=== PATIENT | male | born 1965 | race Caucasian/White ===

== ENCOUNTER 2017-07-25 03:52 | Emergency (ER) | payer OTHER, SELFPAY ==
[2017-07-25 03:54] VITALS: BP 148/98; PULSE 75; RESP 17; TEMP 36.5; O2SAT 99; BMI 28.6
[2017-07-25] MEDS: Diphth,Pertuss(Acell),Tet Vac 0.5 ML Vial IM (04:13)
--- NOTE | 2017-07-25 04:16 | ED.DCSUM_ITS ---
- ER Visit Summary Date of Service: 07/25/17 Chief Complaint: Left long finger injury History of Present Illness: The patient is a 51 M with unsure of last tetanus presents to the emergency department with injury to his left long finger. Patient was at work. 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 He was trying to scrape out the shavings and there was a long one that would not scrape out. He tried to grab it with his hand. It cut through his glove and incised tip of his finger. He denies any other injury. The patient is otherwise healthy. He takes no daily medications. He states he could does not get it to stop bleeding so he presented here. Physical Examination: Exam is relatively unremarkable. The patient does have a 2 cm horizontally oriented laceration across the distal pad of the distal phalanges of the left third finger. It does not involve the nail bed. His 2 point discrimination is preserved. Flexor superficialis and profundus are intact. Cap refill is less than 2 seconds. Rest of exam unremarkable. Test Results: [] Emergency Department Course and Treatment: The patient had his tetanus updated. The wound was anesthetized. It was irrigated copiously. There was no foreign material visualized. The wound was cleansed with Shur-Clens. It was closed with 6 simple interrupted suture. There is no evidence of tendinous involvement. The patient was placed in a bacitracin dressing. He will be allowed to return to work and keep the wound covered. He will follow up with [facility] for suture removal. Treatment Plan: [] Disposition: Discharge Impression: 1. 2 cm left third finger laceration with repair This note was generated with [employer] dictation software. It may contain incorrect words, spelling, and punctuation that were not noted in review of the chart prior to signing ED Disposition - Plan for ED Patient: Chief Complaint: Laceration Instructions: ED Laceration Hand Referrals: [facility] [GROUP OF PHYSICIANS] - 7 Days for suture removal Lucian Navarro MD [STAFF PHYSICIAN] - Shae Shabazz DO [STAFF PHYSICIAN] -
[2017-07-25 04:47] VITALS: RESP 18
== END 2017-07-25 04:47 | disposition home or self-care (01) ==
LOC: ED 04:35
PROVIDERS: Emergency Provider Emergency Medicine
DX: S61.213A Laceration without foreign body of left middle finger without damage to nail, initial encounter (principal); W31.89XA Contact with other specified machinery, initial encounter; Y93.89 Activity, other specified; Y92.9 Unspecified place or not applicable; Y99.0 Civilian activity done for income or pay
CPT/HCPCS: 12001; 90471; 90715; 99283

== ENCOUNTER → 2019-04-25 07:59 | Outpatient (CLI) | payer BC, SELFPAY ==
[2019-04-25 08:04] LABS: Bacteria 0 SEEN /hpf (None Seen); Mucous, Urine 0 SEEN /hpf (<or=2+); Red Blood Cells-Urine 0 SEEN /hpf (0-5); Squamous Epithelial Cells - UA 0 SEEN /hpf (0-5); White Blood Cells 0 SEEN /hpf (0-5)
[2019-04-25 09:58] LABS: Absolute Lymphocyte Count 3.59 X10^3/uL (0.83-4.51); Absolute Neutrophil Count 4.5 X10^3/uL (2.0-7.7); Basophil# 0.09 X10^3/uL; Eosinophil# 0.33 X10^3/uL; Eosinophils% 3.6 % (0-5); Hematocrit 45.5 % (40-54); Hemoglobin 14.9 g/dL (13.0-16.5); Lymphocyte # 3.59 X10^3/ul (4.0); Lymphocyte % 38.7 % (19-41); Mean Corp Hgb Conc 32.7 g/dL (32-36); Mean Corpuscular Hgb 30.6 pg (27.0-32.0); Mean Corpuscular Volume 93.4 fL (80-94); Monocyte# 0.79 X10^3/uL; Monocyte% 8.5 % (0-10); NRBC Flagged by Analyzer 0 % (0-5); Neutrophil # 4.45 X10^3/uL (2.7-7.7); Platelet Count 302 K/mm3 (150-450); RBC Distribution Width CV 12.8 % (11.6-14.6); RBC Distribution Width SD 43.8 fl (35.1-43.9); Red Blood Count 4.87 M/mm3 (4.6-6.2); White Blood Count 9.3 K/mm3 (4.4-11.0)
[2019-04-25 09:59] LABS: Color, Urine Yellow (Yellow); Glucose, Dipstick Normal (Normal); Ketone-Dipstick Negative (Negative); Leukocyte Esterase-Dipstick Negative /ul (Negative); Nitrite-Dipstick Negative (Negative); Occult Blood-Urine Negative /ul (Negative); Protein-Dipstick Negative (Negative); Urine Bilirubin Dipstick Negative (Negative); Urine Clarity Clear (Clear); Urine Urobilinogen Normal (Normal); Urine pH 6.5 (5.0 - 8.0)
[2019-04-25 10:36] LABS: ALB/GLOB Ratio 1.4 RATIO (0.9-2.4); AST(SGOT) 14 U/L (15-37); Alanine Aminotransfer ALT/SGPT 28 U/L (16-61); Albumin, Serum 4.2 g/dL (3.2-5.0); Alkaline Phosphatase 73 U/L (45-117); Anion Gap 9 (5-15); BUN 16 mg/dL (7-18); BUN/Creat Ratio 17.1 RATIO (10-20); Calcium,Total 8.7 mg/dL (8.5-10.1); Chloride 102 mmol/L (98-107); Cholesterol 140 mg/dL (200); Creatinine, Serum 0.94 mg/dL (0.70-1.30); EST Glomerular Filtration Rate 89 mL/min (>60); Est Glom Filt Rate - Afr Amer 108 mL/min (>60); Globulin 3.1 g/dL (2.2-4.2); Glucose 84 mg/dL (74-106); High Density Lipoprotein 53 mg/dL; Potassium 3.9 mmol/L (3.5-5.1); Protein, Total 7.3 g/dL (6.4-8.2); Sodium Level 135 mmol/L (136-145); Thyroid Stim Hormone (TSH) 2.93 uIU/mL (0.358-3.74); Triglycerides 49 mg/dL; Very Low Density Lipoprotein 10 mg/dL (5-40)
== END ==
PROVIDERS: Referring Provider Family Medicine; Visit Provider Family Medicine
DX: Z00.00 Encounter for general adult medical examination without abnormal findings (principal); F17.200 Nicotine dependence, unspecified, uncomplicated
CPT/HCPCS: 36415; 80053; 80061; 81001; 84443; 85025

== ENCOUNTER 2019-05-27 05:30 | Day surgery (SDC) | payer BC, SELFPAY ==
[2019-05-27] VITALS (9 sets, daily range): BP systolic 95–133; BP diastolic 68–94; PULSE 52–66; RESP 16–18; TEMP 36.2–36.4; O2SAT 97–100
[2019-05-27] MEDS: Lactated Ringers 1,000 ML 100 ML IV (06:11)
--- NOTE | 2019-05-27 06:11 | HP.PCM_ITS ---
Problem List (1) Screening for intestinal cancer Status: Acute History of Present Illness Date of Admission: 05/27/19 The patient is a 53 year old M who presents today for screening colonoscopy. A previous colonoscopy was very remote. He denies bright red blood per rectum or melena. No abdominal pain. No unexpected weight loss. He does not take any routine medications and is not allergic to any medications. He does use tobacco. Past Medical History Allergies No Known Allergies Allergy (Verified 05/23/19 10:15) Home Medications: Ambulatory Orders Medication Instructions Recorded Multivitamin [Multiple Vitamins] 1 ea PO DAILY 05/23/19 Smoking Status: Current every day smoker Tobacco Use: Cigarettes Review of Systems Constitutional: Denies: Anorexia HEENT: Denies: Difficulty Swallowing Cardiovascular: Denies: Chest Pain Gastrointestinal: Denies: Abdominal Pain, Nausea, Melena Endocrine: Denies: Change in Body Habitus VTE Information - Inpt Only VTE Present on Admission: No Patient Problems: Active and Suspected Problems Screening for intestinal cancer (Acute) - Physical Exam Vitals/I&O's: Vital Signs Temp Pulse Resp BP Pulse Ox 97.3 F L 66 16 103/90 H 99 05/27/19 05:55 05/27/19 05:55 05/27/19 05:55 05/27/19 05:55 05/27/19 05:55 Oxygen Delivery Method Room Air General: Alert, Oriented x3, Cooperative, No apparent distress Oral: Moist Mucosa Lungs: Clear to auscultation, Normal air movement Cardiovascular: Regular rate, Regular Rhythm Abdomen: Bowel Sounds Present, Soft, Non Tender, Non-Distended Extremities: No Calf Tenderness Current Medications Lactated Ringer's () 1,000 mls @ 100 mls/hr IV .Q10H [facility] Assessment/Plan All Active Problems Screening for intestinal cancer (Acute) I propose for the patient is screening colonoscopy with possible biopsy or polypectomy is indicated. He presents via our open access program today. He has had an opportunity to ask and have questions answered. We will proceed as noted. Benjamín Judge M.D., F.A.C.S.
--- NOTE | 2019-05-27 06:30 | COLBX_PTH ---
PATIENT: RICHARD COUCH LOC: EN U#:[id number] AGE/SX: 53/M ROOM: RE05/27/[address]: Dr. Benjamín Judge MD : 1965 BED: DIS: 05/27/2019 SPEC #: [id number] RECD: 05/27/19 12:16 STATUS: KEL WILLIAM #: [id number] BRETT: 05/27/19 06:[address]: Benjamín Judge DEPT: SURGICAL PATHOLOGY RECD BY: Silviano Harris ENTERED: 05/27/19 12:16 SP TYPE: COLON BX MICHELET DR: Dr. Toño Urbina MD Tissues: A - Ascending colon B - Sigmoid colon biopsy Procedures: Surgery Specimen Level IV HEADER OPERATION: Colonoscopy - open access (MOD) PRE-OP DIAGNOSIS: Screening TISSUE SUBMITTED: A - Proximal ascending polyp biopsy, B - Proximal sigmoid polyp biopsy MICROSCOPIC DIAGNOSIS A. Proximal ascending colon polyp, biopsy: Fragments of tubular adenoma. B. Proximal sigmoid polyp, biopsy: Fragments of hyperplastic polyp. SJ:poppy 05/29/19 MICROSCOPIC DESCRIPTION Slides are reviewed. GROSS DESCRIPTION A - Received in fixative is one container labeled with the patient's name and designated proximal ascending colon polyp. The specimen consists of multiple irregular fragments of light jones soft tissue that in aggregate measure 1 x 0.3 x 0.1 cm. The specimen is totally submitted in one cassette. B - Received in fixative is one container labeled with the patient's name and designated proximal sigmoid polyp. The specimen consists of multiple irregular fragments of light jones soft tissue that in aggregate measure 1 x 0.7 x 0.1 cm. The specimen is totally submitted in one cassette. / AM:poppy 05/27/19 TC:1 CPT: 82710 x2
--- NOTE | 2019-05-27 06:54 | OP.COLON_ITS ---
Patient Name: Rayshawn Head Procedure Date: 05/27/2019 6:02 AM Date of : 1965 Age: 53 Procedure: Colonoscopy Indications: Screening for colorectal malignant neoplasm Providers: Benjamín Judge MD Referring MD: Toño Urbina Medicines: Midazolam 4 mg IV, Meperidine 100 mg IV Patient Profile: Last Colonoscopy: more than 10 years ago. Complications: No immediate complications. Procedure: Pre-Anesthesia Assessment: - Prior to the procedure, a History and Physical was performed, and patient medications and allergies were reviewed. The patient's tolerance of previous anesthesia was also reviewed. The risks and benefits of the procedure and the sedation options and risks were discussed with the patient. All questions were answered, and informed consent was obtained. Prior Anticoagulants: The patient has taken no previous anticoagulant or antiplatelet agents. ASA Grade Assessment: II - A patient with mild systemic disease. After reviewing the risks and benefits, the patient was deemed in satisfactory condition to undergo the procedure. After I obtained informed consent, the scope was passed under direct vision. Throughout the procedure, the patient's blood pressure, pulse, and oxygen saturations were monitored continuously. The Colonoscope was introduced through the anus and advanced to the cecum, identified by appendiceal orifice and ileocecal valve. The colonoscopy was performed without difficulty. The patient tolerated the procedure well. The quality of the bowel preparation was good. The ileocecal valve and the appendiceal orifice were photographed. Moderate Sedation: Moderate (conscious) sedation was personally administered by the endoscopist. The following parameters were monitored: oxygen saturation, heart rate, blood pressure, and response to care. Total physician intraservice time was 15 minutes. Scope In: 6:30:55 AM Scope Withdrawal Time 0 hours 13 minutes 51 seconds Scope Out: 6:49:13 AM Total Procedure Duration Time 0 hours 18 minutes 18 seconds Findings: The perianal and digital rectal examinations were normal. A 6 mm polyp was found in the proximal ascending colon. The polyp was sessile. The polyp was removed with a cold biopsy forceps. Resection and retrieval were complete. A 5 mm polyp was found in the proximal sigmoid colon. The polyp was sessile. The polyp was removed with a cold biopsy forceps. Resection and retrieval were complete. A few diverticula were found in the sigmoid colon. Impression: - One 6 mm polyp in the proximal ascending colon, removed with a cold biopsy forceps. Resected and retrieved. - One 5 mm polyp in the proximal sigmoid colon, removed with a cold biopsy forceps. Resected and retrieved. - Diverticulosis in the sigmoid colon. Recommendation: - Discharge patient to home. - Resume previous diet. - Continue present medications. - Repeat colonoscopy in 5 years for surveillance based on pathology results. - Telephone my office for pathology results in 1 week. Procedure Code(s): --- Professional --- 96475, Colonoscopy, flexible; with biopsy, single or multiple 23146, 59, Moderate sedation services provided by the same physician or other qualified health career professional performing the diagnostic or therapeutic service that the sedation supports, requiring the presence of an independent trained observer to assist in the monitoring of the patient's level of consciousness and physiological status; initial 15 minutes of intraservice time, patient age 5 years or older Diagnosis Code(s): --- Professional --- Z12.11, Encounter for screening for malignant neoplasm of colon D12.2, Benign neoplasm of ascending colon D12.5, Benign neoplasm of sigmoid colon K57.30, Diverticulosis of large intestine without perforation or abscess without bleeding CPT copyright 2017 [employer]. All rights reserved. The codes documented in this report are preliminary and upon quotation clerk review may be revised to meet current compliance requirements. Benjamín Judge MD 05/27/2019 6:53:26 AM This report has been signed electronically. Number of Addenda: 0 Note Initiated On: 05/27/2019 6:02 AM
== END 2019-05-27 07:32 | disposition home or self-care (01) ==
LOC: EN 05:31 → AC 05:32
PROVIDERS: Family Provider Family Medicine; PCP Family Medicine; Referring Provider Family Medicine; Visit Provider Surgery
PROC: 0DJD8ZZ Inspection of Lower Intestinal Tract, Via Natural or Artificial Opening Endoscopic (ICD-10-PCS; CPT 45378; principal; 2019-05-27 06:25)
DX: Z12.11 Encounter for screening for malignant neoplasm of colon (principal); D12.2 Benign neoplasm of ascending colon; D12.5 Benign neoplasm of sigmoid colon; K57.30 Diverticulosis of large intestine without perforation or abscess without bleeding; F17.210 Nicotine dependence, cigarettes, uncomplicated
CPT/HCPCS: 45380; 88305; 99152; 99153; J7120

== ENCOUNTER 2020-12-28 02:53 | Emergency (ER) | payer OTHER, BC, SELFPAY ==
[2020-12-28 02:54] VITALS: BP 131/87; PULSE 74; RESP 16; TEMP 36.7; O2SAT 98; BMI 30.2
--- NOTE | 2020-12-28 03:11 | EX.ED.GENINJ ---
HPI History of Present Illness Chief Complaint: Laceration Informant: patient Narrative Narrative: Patient is a 55-year-old male who presents to the emergency department for laceration to right thumb. He states he was at work whenever a piece of equipment started to fall. He tried to catch it and it sliced his finger. No loss of range of motion or sensation. He is left-handed at baseline. Bleeding has been controlled prior to arrival. He is on a blood thinning medications. Denies any other injury. He states his last tetanus shot was in 2018. [facility] Home Medications multivitamin 1 ea PO DAILY 05/23/19 [History Last Taken Unknown] naproxen [Naprosyn] 500 mg PO DAILY 12/28/20 [History Last Taken Unknown] Allergy/AdvReac Type Severity Reaction Status Date / Time No Known Allergies Allergy Verified 12/28/20 02:56 Social History Smoking Status: Current every day smoker tobacco type: cigarettes ROS ROS ED Constitutional Constitutional ED: Denies chills or fever(s) ENT ENT ED: Denies rhinorrhea Cardiovascular Cardiovascular: Denies chest pain Respiratory/Chest Respiratory/Chest: Denies cough or dyspnea Gastrointestinal Gastrointestinal: Denies abdominal pain, nausea or vomiting Musculoskeletal Musculoskeletal: Denies back pain or neck pain Integumentary Reports other Details: Right thumb laceration Neurologic Neurologic: Denies weakness EXAM Physical Exam Const Vital Signs: 12/28/20 02:54 Temperature 98.1 F Temperature Source Oral Pulse Rate 74 Respiratory Rate 16 Blood Pressure 131/87 H Blood Pressure Mean 101 Pulse Ox 98 Oxygen Delivery Method Room Air Positive well nourished and well developed General Appearance ED: well developed and NAD HEENT Reports normocephalic and head/scalp atraumatic Eyes PERRL and EOMs intact bilaterally Neck supple Resp normal respiratory effort Cardio regular rate Extremity Extremity Narrative: Brisk capillary refill. Full range of motion of the fingers and hand. Neurovascular intact. Neuro no sensory deficits noted Sensorium / Orientation: alert Motor Exam: strength 5/5 throughout Psych mental status grossly normal Skin Skin Narrative: Right thumb has a laceration with skin avulsion of the pad of the right thumb. PROC Procedures Lacerations thumb: Length: 1.18 in Shape: Circular (Attached by flap) Prep: Sterile Conditions and Shure-Clens Laceration repair: Irrigated, Lidocaine and Skin sutures Irrigated (ml): 200 Number of Sutures/Ag: 4 Suture Information: Ethilon, Simple and 5-0 MDM MDM MDM Narrative Medical decision making narrative: Patient presents to the emergency department for thumb laceration. He is up-to-date on vaccinations. Vital signs within normal limits. Wound was anesthetized and extensively irrigated and cleaned. No foreign body appreciated. It is unlikely that the skin flap will end up healing well but it is sutured back down to give the gaping hole protection. He is to monitor for evidence of infection. He is to have the sutures removed in 7 to 10 days. He understands and is agreeable to plan. All questions were answered. Discharge Plan Triage Chief Complaint: Laceration ED Provider: Brandan Archer Dx/Rx/DC Orders Clinical Impression: Laceration of thumb Instructions: ED Laceration, Hand: All Closures Prescriptions: No Action multivitamin 1 EACH tablet 1 ea PO DAILY RF: 0 naproxen [Naprosyn] 500 mg Tablet 500 mg PO DAILY RF: 0 Stand Alone Forms: Work Status Form Primary Care Provider: Toño Urbina Referrals: Toño Urbina MD [Primary Care Provider] - 7 Days for suture removal Disposition Disposition: Home, Self Care Discharge Date/Time: 12/28/20 04:45
== END 2020-12-28 04:45 | disposition home or self-care (01) ==
PROVIDERS: Emergency Provider Emergency Medicine; PCP Family Medicine
DX: S61.011A Laceration without foreign body of right thumb without damage to nail, initial encounter (principal); F17.210 Nicotine dependence, cigarettes, uncomplicated; X58.XXXA Exposure to other specified factors, initial encounter
CPT/HCPCS: 12001; 99284

== ENCOUNTER 2022-01-17 02:23 | Emergency (ER) | payer BC, SELFPAY ==
[2022-01-17 02:26] VITALS: BP 139/91; PULSE 77; RESP 34; TEMP 36.7; O2SAT 98; BMI 26.5
--- NOTE | 2022-01-17 02:44 | ED.VIS.GI ---
HPI HPI - GI History of Present Illness Chief Complaint: Abd Pain Abdominal Pain/Flank Pain Onset: Today Context: Sudden Onset Timing: Continuous and Waxes and wanes Quality: Sharp Location: RUQ Worsened by: Nothing Relieved by: Nothing Nausea/Vomiting/Emesis GI Symptom: Negative for Nausea or Vomiting Diarrhea/Melena/Hematochezia GI Symptom: Negative for Diarrhea, Melena or Hematochezia Associated Symptoms Associated Symptoms: Negative for Dysuria, Frequency or Hematuria Narrative Narrative: Patient presents with right upper quadrant abdominal pain that began tonight. Patient states it began rather suddenly. Patient states it is constant but waxes and wanes. Patient states the pain is sharp. Patient states the pain is over the right upper quadrant right lower chest. Patient states he does have worsening pain with breathing. Patient states nothing makes the pain any better. Patient denies any nausea, vomiting, or diarrhea. Patient denies any melena or hematochezia. Patient denies any dysuria, hematuria, or frequency. Patient states the pain does radiate into his back and into his shoulder. PFSH PFSH Home Medications naproxen 500 mg tablet (Naprosyn) 500 mg PO DAILY 12/28/20 [History Last Taken Unknown] hydrocodone-acetaminophen 5-325mg 5mg-325mg 1 tab PO Q6H PRN PRN Pain 3 days #10 TABLETS 01/17/22 [Rx Last Taken Unknown] Allergy/AdvReac Type Severity Reaction Status Date / Time No Known Allergies Allergy Verified 01/17/22 02:31 Social History Smoking Status: Current every day smoker tobacco type: cigarettes ROS ROS ED Constitutional Constitutional ED: Denies chills or fever(s) Eyes Eyes: Denies blurry vision or change in vision ENT ENT ED: Denies rhinorrhea or sore throat Cardiovascular Cardiovascular: Reports chest pain; Denies palpitations Respiratory/Chest Respiratory/Chest: Reports dyspnea; Denies cough Gastrointestinal Gastrointestinal: Denies nausea or vomiting Genitourinary Genitourinary ED: Denies dysuria or hematuria Musculoskeletal Musculoskeletal: Reports back pain; Denies neck pain Integumentary Denies abscess or rash Neurologic Neurologic: Denies headache(s) or weakness Allergic/Immunologic Allergic/Immunologic ED: Denies mouth swelling or urticaria EXAM Physical Exam Const Vital Signs: 01/17/22 02:26 Temperature 98.1 F Temperature Source Temporal Pulse Rate 77 Respiratory Rate 34 H Blood Pressure 139/91 H Blood Pressure Mean 107 Pulse Ox 98 Oxygen Delivery Method Room Air Positive well nourished and well developed General Appearance ED: well developed HEENT Reports moist mucous membranes Neck supple and no JVD Resp normal respiratory effort and clear to auscultation bilaterally Cardio regular rate, regular rhythm and no murmurs GI normal to inspection, nondistended, normoactive bowel sounds Palpation: soft and tender RUQ; Negative for guarding or rebound tenderness present Extremity normal to inspection General Extremety ED: Negative for edema or tenderness General Extremity: Negative for edema Neuro oriented x3, CN's II-XII intact bilaterally and no sensory deficits noted Sensorium / Orientation: alert Motor Exam: strength 5/5 throughout Psych mental status grossly normal Skin no rashes or lesions noted MDM MDM MDM Narrative Medical decision making narrative: Patient was given IV fluids, morphine, and Zofran. EKG was obtained. On my interpretation, it showed a normal sinus rhythm with a rate of 75. OH interval, QRS interval, and QTc intervals were all normal. [place] was normal. There are no acute ST or T wave changes. CBC shows a mild leukocytosis of 13.6. Comprehensive metabolic profile was within normal limits. D-dimer was elevated at 0.74. Urinalysis does not show any evidence of urinary tract infection or hematuria. Because of the elevated D-dimer, CTA of the chest, abdomen, and pelvis was obtained. There is no evidence of pulmonary embolism. There is a small right pleural effusion and atelectasis in the posterior segment of the right lower lobe. There are bilateral inguinal hernias but there is no evidence of obstruction. There is no evidence of cholecystitis or cholelithiasis. This was interpreted by the radiologist and reviewed by myself. Patient was advised of his findings. Patient was instructed to take 10-15 deep breaths every hour to prevent pneumonia. Patient was instructed to take Tylenol or ibuprofen as needed for pain. Patient was instructed to follow-up with his primary care physician in 5 to 7 days. Patient understood and was agreeable with the plan. All questions were answered. Lab Data Attestation: I reviewed the patient's lab results. Labs: Laboratory Results - last 24 hr 01/17/22 01/17/22 01/17/22 02:15 02:15 02:15 WBC 13.6 H RBC 4.70 Hgb 14.8 Hct 44.1 MCV 93.8 MCH 31.5 MCHC 33.6 RDW Std Deviation 46.1 H RDW Coeff of Andrea 13.3 Plt Count 319 MPV 9.9 Immature Gran % (Auto) 0.400 Neut % (Auto) 62.6 Lymph % (Auto) 24.9 [place] % (Auto) 10.0 Eos % (Auto) 1.6 Baso % (Auto) 0.5 Absolute Neuts (auto) 8.5 H Absolute Lymphs (auto) 3.37 Nucleated RBC % 0 D-Dimer Quant (PE/DVT) 0.74 H* Sodium 138 Potassium 4.0 Chloride 107 Carbon Dioxide 25.0 Anion Gap 6 BUN 18 Creatinine 0.90 Estim Creat Clear Calc 88.67 Est GFR (MDRD) Af Amer 113 Est GFR (MDRD) Non-Af 93 BUN/Creatinine Ratio 20.1 H Glucose 100 Calcium 9.1 Total Bilirubin 0.60 AST 21 ALT 33 Alkaline Phosphatase 98 Troponin I High Sens 29 Total Protein 8.0 Albumin 4.3 Globulin 3.7 Albumin/Globulin Ratio 1.2 Urine Color Urine Clarity Urine pH Ur Specific [place] Urine Protein Urine Glucose (UA) Urine Ketones Urine Occult Blood Urine Nitrite Urine Bilirubin Urine Urobilinogen Ur Leukocyte Esterase Urine RBC Urine WBC Ur Squamous Epith Cells Urine Bacteria Urine Mucus 01/17/22 03:43 WBC RBC Hgb Hct MCV MCH MCHC RDW Std Deviation RDW Coeff of Andrea Plt Count MPV Immature Gran % (Auto) Neut % (Auto) Lymph % (Auto) [place] % (Auto) Eos % (Auto) Baso % (Auto) Absolute Neuts (auto) Absolute Lymphs (auto) Nucleated RBC % D-Dimer Quant (PE/DVT) Sodium Potassium Chloride Carbon Dioxide Anion Gap BUN Creatinine Estim Creat Clear Calc Est GFR (MDRD) Af Amer Est GFR (MDRD) Non-Af BUN/Creatinine Ratio Glucose Calcium Total Bilirubin AST ALT Alkaline Phosphatase Troponin I High Sens Total Protein Albumin Globulin Albumin/Globulin Ratio Urine Color Yellow Urine Clarity Clear Urine pH 6.0 Ur Specific [place] 1.025 Urine Protein Negative Urine Glucose (UA) Normal Urine Ketones Negative Urine Occult Blood 10 H Urine Nitrite Negative Urine Bilirubin Negative Urine Urobilinogen Normal Ur Leukocyte Esterase Negative Urine RBC 0 SEEN Urine WBC 0 SEEN Ur Squamous Epith Cells 0 SEEN Urine Bacteria 0 SEEN Urine Mucus 0 SEEN Radiography Diagnostic Testing: Clinical Impression(s) from Imaging Studies Chest/Abdomen/Pelvis CTA 01/17/22 03:37 IMPRESSION: 1. No evidence for pulmonary embolism, aortic aneurysm, or aortic dissection. 2. No evidence for aneurysm, dissection, or stenosis of the abdominal aorta or large abdominal or pelvic arteries. 3. Small right pleural effusion with overlying atelectasis and/or infiltration in the posterior right lower lobe. 4. Single mildly enlarged pretracheal mediastinal lymph node. 5. Bilateral inguinal hernias containing bowel. No associated bowel obstruction or strangulation. Electronically Signed: Lexa Wheeler MD at 4:23 EDT Reading Location ID and State: [facility] / [place] , Service support , EKG Initial EKG: Attestation: I personally reviewed and interpreted this EKG as follows: Interpretation: Sinus Rhythm (75) and No Acute Injury Pattern Prior EKG tracings: available for review Prior: Unchanged (01/19/2015) Discharge Plan Triage Chief Complaint: Abd Pain Other Complaint: Chest Pain ED Provider: Rayshawn Agarwal Dx/Rx/DC Orders Clinical Impression: Abdominal pain, acute, right upper quadrant, Atelectasis of right lung Instructions: ED Abdominal Pain Unkn Cause Male... Prescriptions: New hydrocodone-acetaminophen [hydrocodone-acetaminophen] 1 TABLET tablet 1 tab PO Q6H PRN PRN (Reason: Pain) 3 Days Qty: 10 0RF No Action naproxen [Naprosyn] 500 mg Tablet 500 mg PO DAILY Primary Care Provider: Toño Urbina Referrals: Toño Urbina MD [Primary Care Provider] - 3-5 Days Disposition Disposition: Home, Self Care
--- NOTE | 2022-01-17 02:48 | EKG12_ITS ---
Test Reason : DYSRHYTHMIA Blood Pressure : / mmHG Vent. Rate : 075 BPM Atrial Rate : 075 BPM P-R Int : 162 ms QRS Dur : 092 ms QT Int : 364 ms P-R-T Axes : 062 065 050 degrees QTc Int : 406 ms Normal sinus rhythm Normal ECG Confirmed by CEDRICK PULIDO, ARMANDO ([id number]), production editor SALVADOR BARAJAS ([id number]) on 01/18/2022 11:22:27 AM Referred By: TOSHIA Confirmed By:ARMANDO PHILIP MD
[2022-01-17] MEDS: 0.9% Normal Saline 1,000 ML 1000 ML IV (03:02)
[2022-01-17] MEDS: Ondansetron 4 MG/2 ML Vial IV (03:03)
[2022-01-17] MEDS: Morphine 4 MG/ML Syringe IV (03:04)
[2022-01-17 03:14] LABS: Absolute Lymphocyte Count 3.37 X10^3/uL (0.83-4.51); Absolute Neutrophil Count 8.5 X10^3/uL (2.0-7.7); Basophil# 0.07 X10^3/uL; Basophil% 0.5 % (0-1); Eosinophil# 0.22 X10^3/uL; Eosinophils% 1.6 % (0-5); Hematocrit 44.1 % (40-54); Hemoglobin 14.8 g/dL (13.0-16.5); Lymphocyte # 3.37 X10^3/ul (0.83-4.51); Lymphocyte % 24.9 % (19-41); Mean Corp Hgb Conc 33.6 g/dL (32-36); Mean Corpuscular Hgb 31.5 pg (27.0-32.0); Mean Corpuscular Volume 93.8 fL (80-94); Mean Platelet Vol. 9.9 fl (6.2-12.0); Monocyte# 1.35 X10^3/uL; NRBC Flagged by Analyzer 0 % (0-5); Neutrophil # 8.48 X10^3/uL (2.7-7.7); Neutrophil % 62.6 % (47-70); Platelet Count 319 K/mm3 (150-450); RBC Distribution Width CV 13.3 % (11.6-14.6); RBC Distribution Width SD 46.1 fl (35.1-43.9); White Blood Count 13.6 K/mm3 (4.4-11.0)
[2022-01-17 03:27] LABS: D-Dimer Quantitative (DVT/PE) 0.74 FEU/ug/m (0.27-0.49)
[2022-01-17 03:32] LABS: ALB/GLOB Ratio 1.2 RATIO (0.9-2.4); AST(SGOT) 21 U/L (15-37); Alanine Aminotransfer ALT/SGPT 33 U/L (16-61); Albumin, Serum 4.3 g/dL (3.2-5.0); Alkaline Phosphatase 98 U/L (45-117); Anion Gap 6 (5-15); BUN 18 mg/dL (7-18); BUN/Creat Ratio 20.1 RATIO (10-20); Calcium,Total 9.1 mg/dL (8.5-10.1); Chloride 107 mmol/L (98-107); EST Glomerular Filtration Rate 93 mL/min (>60); Est Glom Filt Rate - Afr Amer 113 mL/min (>60); Estimated Creatinine Clearance 88.67 ml/min; Globulin 3.7 g/dL (2.2-4.2); Glucose 100 mg/dL (74-106); Sodium Level 138 mmol/L (136-145); Troponin-I HS 29 pg/mL (3.0-78.0)
--- NOTE | 2022-01-17 03:37 | CT_ITS ---
EXAM: CT ANGIOGRAPHY CHEST, ABDOMEN AND PELVIS WITH INTRAVENOUS CONTRAST CLINICAL INDICATION: Elevated D-dimer Elevated D-dimer. Right lower chest pain. Shortness of breath. TECHNIQUE: Helically acquired angiography images were obtained of the chest, abdomen and pelvis with intravenous contrast. This CT exam was performed using one or more of the following dose reduction techniques: automated exposure control, adjustment of the mA and/or kV according to patient size, and/or use of iterative reconstruction technique. This report was created using [employer] report generation technology. MIP reconstructed images were created and reviewed. CONTRAST: IV 100mL [id number] RADIATION DOSE: CTDIvol = 17.03 mGy, DLP = 1544.82 mGy-cm COMPARISON: None. FINDINGS: VASCULATURE: AORTA: No acute findings. Normal in caliber. No dissection. PULMONARY ARTERIES: Unremarkable. Normal in caliber. No obvious central pulmonary embolism although this study was not performed with the pulmonary embolism protocol. GREAT VESSELS OF AORTIC ARCH: Unremarkable. Normal in caliber. No dissection. CELIAC TRUNK AND MESENTERIC ARTERIES: No acute findings. No occlusion or significant stenosis. No dissection. RENAL ARTERIES: No acute findings. No occlusion or significant stenosis. No dissection. ILIAC ARTERIES: No acute findings. No occlusion or significant stenosis. No dissection. CHEST: LUNGS AND PLEURAL SPACES: There are centrilobular and paraseptal emphysematous bullae in the lungs bilaterally. There is a small right pleural effusion with overlying right posterior basilar atelectasis. Active lower lobe infiltrate cannot be excluded. No mass. No pneumothorax. HEART: Unremarkable. Heart size is normal. No pericardial effusion. MEDIASTINUM: There is a single mildly enlarged pretracheal mediastinal lymph node with short axis diameter 1.2 cm. Esophagus is unremarkable. No hiatal hernia. THYROID: Unremarkable. No thyroid lesions. ABDOMEN: LIVER: There are a few small liver cysts. GALLBLADDER AND BILE DUCTS: Unremarkable. No calcified gallstones. No gallbladder distention or wall edema. No intra- or extrahepatic biliary ductal dilation. PANCREAS: Unremarkable. No focal cystic or solid mass. SPLEEN: Unremarkable. Normal size without focal cystic or solid mass. ADRENALS: Unremarkable. No nodules. KIDNEYS AND URETERS: Unremarkable. Normal renal size and position. No hydronephrosis. STOMACH AND BOWEL: There is a right inguinal hernia which contains a small bowel loop. There is no associated bowel obstruction or strangulation. There is a left inguinal hernia with marginal extension of a segment of sigmoid colon into the hernia. There is no associated bowel obstruction or strangulation. No focal inflammatory change. PELVIS: APPENDIX: A normal appendix is seen on series 3, axial images 53-70. BLADDER: Unremarkable. REPRODUCTIVE: Unremarkable as visualized. No mass. CHEST, ABDOMEN and PELVIS: INTRAPERITONEAL SPACE: Unremarkable. No ascites or other fluid collection. No free air. BONES/JOINTS: There are multilevel degenerative changes in the visualized spine. No suspicious lytic or blastic abnormality. SOFT TISSUES: See above. LYMPH NODES: See above. CT/CTA Chst, Abd, Pel W and/or WO IMPRESSION: 1. No evidence for pulmonary embolism, aortic aneurysm, or aortic dissection. 2. No evidence for aneurysm, dissection, or stenosis of the abdominal aorta or large abdominal or pelvic arteries. 3. Small right pleural effusion with overlying atelectasis and/or infiltration in the posterior right lower lobe. 4. Single mildly enlarged pretracheal mediastinal lymph node. 5. Bilateral inguinal hernias containing bowel. No associated bowel obstruction or strangulation. Electronically Signed: Lexa Wheeler MD at 4:23 EDT ,
[2022-01-17 03:48] LABS: Bacteria 0 SEEN /hpf (None Seen); Mucous, Urine 0 SEEN /hpf (<or=2+); Red Blood Cells-Urine 0 SEEN /hpf (0-5); Squamous Epithelial Cells - UA 0 SEEN /hpf (0-5); White Blood Cells 0 SEEN /hpf (0-5)
[2022-01-17 03:49] LABS: Color, Urine Yellow (Yellow); Glucose, Dipstick Normal (Normal); Ketone-Dipstick Negative (Negative); Leukocyte Esterase-Dipstick Negative /ul (Negative); Nitrite-Dipstick Negative (Negative); Occult Blood-Urine 10 /ul (Negative); Protein-Dipstick Negative (Negative); Specific Gravity, Urine 1.025 (1.002-1.030); Urine Bilirubin Dipstick Negative (Negative); Urine Clarity Clear (Clear); Urine Urobilinogen Normal (Normal)
[2022-01-17 05:03] VITALS: BP 130/77; PULSE 88; RESP 20; O2SAT 95
== END 2022-01-17 05:13 | disposition home or self-care (01) ==
PROVIDERS: Emergency Provider Emergency Medicine; PCP Family Medicine; Visit Provider Emergency Medicine
DX: R10.11 Right upper quadrant pain (principal); J98.11 Atelectasis; F17.210 Nicotine dependence, cigarettes, uncomplicated; Z79.899 Other long term (current) drug therapy
CPT/HCPCS: 71275; 74174; 80053; 81001; 84484; 85025; 85379; 93005; 96361; 96374; 96375; 99285; J7030; Q9967; J2405

== ENCOUNTER → 2022-02-03 | Outpatient (CLI) | payer BC, SELFPAY ==
[2022-02-03 07:04] LABS: Hematocrit 39.8 % (40-54); Hemoglobin 12.8 g/dL (13.0-16.5); Mean Corp Hgb Conc 32.2 g/dL (32-36); Mean Corpuscular Hgb 29.8 pg (27.0-32.0); Mean Corpuscular Volume 92.8 fL (80-94); Mean Platelet Vol. 9.2 fl (6.2-12.0); Platelet Count 576 K/mm3 (150-450); RBC Distribution Width CV 13.4 % (11.6-14.6); RBC Distribution Width SD 45.9 fl (35.1-43.9); Red Blood Count 4.29 M/mm3 (4.6-6.2); White Blood Count 11.6 K/mm3 (4.4-11.0)
[2022-02-03 07:34] LABS: PSA,Total - Annual Screen 1.33 ng/mL (0.00-4.00)
--- NOTE | 2022-02-03 10:12 | PFT ---
INTRODUCTION: The patient is a 56-year-old male that presents for pulmonary function studies secondary to a diagnosis of tobacco dependency. Respiratory therapy reported good patient effort. Bronchodilators were used during testing. INTERPRETATION: Forced expiration spirometry demonstrates the presence of a moderately severe large airways obstructive ventilatory defect. There was a significant response to aerosolized bronchodilators. Spirograms are of good quality but do not plateau indicating slow emptying of the lungs. Body plethysmography was performed and revealed a decreased TLC to 4.4 L, 73% of predicted, indicative of a mild restrictive ventilatory impairment. Diffusing capacity by single breath CO was noted to be 75% of predicted. IMPRESSION: Partially reversible moderately severe mixed ventilatory defect with preserved diffusing capacity.
[2022-02-04 11:08] LABS: HEPATITIS B SURFACE AG Negative (Negative); Hep C Antibodies <0.1 s/co ratio (0.0-0.9); Hepatitis A IgM Antibody Negative (Negative); Hepatitis B Core AB IgM Negative (Negative)
== END | disposition home or self-care (01) ==
PROVIDERS: PCP Nurse Practitioner Primary Care; Referring Provider Nurse Practitioner Primary Care; Visit Provider Nurse Practitioner Primary Care
DX: D72.829 Elevated white blood cell count, unspecified (principal); R93.2 Abnormal findings on diagnostic imaging of liver and biliary tract; R31.9 Hematuria, unspecified; Z72.0 Tobacco use
CPT/HCPCS: 36415; 80074; 84153; 85027; 94060; 94726; 94729; G0103

== ENCOUNTER → 2022-02-04 | Outpatient (CLI) | payer BC, SELFPAY ==
--- NOTE | 2022-02-04 07:42 | CT_ITS ---
INDICATION: ENLARGED LYMPH NODE EXAMINATION: CT CHEST WITHOUT CONTRAST - CT Chest High Resolution WO Contrast Injection TECHNIQUE: Helically acquired images were obtained of the chest. A radiation dose optimization technique was used for this scan. IV Contrast dosage and agent: None. COMPARISON: 01/17/2022 FINDINGS: LUNGS, PLEURA AND LARGE AIRWAYS: Mild emphysema. No high resolution CT evidence of interstitial lung disease or bronchiectasis. No change in the small right pleural effusion with right lower lobe atelectasis. No pneumothorax. THYROID: No thyroid lesions. HEART AND PERICARDIUM: Heart size is normal. No pericardial effusion. CORONARY ARTERIES: Coronary artery calcification is seen. VESSELS: Thoracic aorta is not dilated. MEDIASTINUM AND JOSE: No mediastinal or hilar adenopathy. No pretracheal lymphadenopathy. No change in 1.0 x 1.2 cm precarinal lymph node which maintains a normal fatty hilum which is likely normal. Esophagus is unremarkable. No hiatal hernia. UPPER ABDOMEN: No acute pathology. BONES: No suspicious lytic or blastic abnormality. CT/Chest without Contrast IMPRESSION: 1. No change in normal precarinal lymph node. 2. No change in small right pleural effusion with right lower lobe atelectasis. 3. No high resolution CT evidence of interstitial lung disease or bronchiectasis. Electronically Signed: Chilo Monreal MD at 12:15 EDT ,
== END | disposition home or self-care (01) ==
LOC: CT 07:35
PROVIDERS: PCP Nurse Practitioner Primary Care; Visit Provider Nurse Practitioner Primary Care
DX: R59.9 Enlarged lymph nodes, unspecified (principal)
CPT/HCPCS: 71250

== ENCOUNTER → 2022-02-08 | Outpatient (CLI) | payer BC, SELFPAY ==
--- NOTE | 2022-02-08 08:06 | MRI_ITS ---
STUDY: MRI ABDOMEN WITH AND WITHOUT CONTRAST REASON FOR EXAM: Male, 56 years old. Right upper abdominal pain. TECHNIQUE: Standardized fat and water weighted pulse sequences were obtained in all 3 orthogonal planes post contrast administration. IV Yes YES was administered for the contrast portion of the examination. COMPARISON: CT 02/04/2022 FINDINGS: Mild scarring in the right lung base. The visualized portions of the heart are within normal limits. There are several nonenhancing T2 bright cysts in the right and left hepatic lobes, none of which demonstrate contrast enhancement, compatible with simple cysts. No required imaging follow-up needed given high likelihood of benign nature. Normal gallbladder and extrahepatic biliary system. Normal spleen. Normal pancreas. Normal bilateral adrenal glands. Normal right kidney. Normal left kidney. Normal visualized stomach. Normal small intestine. Normal colon. The appendix is visualized and appears normal. Normal abdominal aorta. Normal inferior vena cava. Normal retroperitoneum. Normal abdominal wall. Multilevel degenerative disc disease/bulging without critical canal stenosis. MRI/MRI Abd WITH and W/O Contrast IMPRESSION: 1. Unremarkable unenhanced and enhanced MRI of the abdomen. 2. Simple hepatic cysts. No required imaging follow-up needed given high likelihood of benign nature. 3. Mild scarring in the right lung base. Electronically Signed: Kevin Braga MD ([place]) at 8:16 EDT Reading Location ID and State: [id number] , Service support ,
== END | disposition home or self-care (01) ==
PROVIDERS: PCP Nurse Practitioner Primary Care; Referring Provider Nurse Practitioner Primary Care; Visit Provider Nurse Practitioner Primary Care
DX: R93.2 Abnormal findings on diagnostic imaging of liver and biliary tract (principal)
CPT/HCPCS: 74183; A9575; A4216

== ENCOUNTER → 2022-05-03 | Outpatient (CLI) | payer BC, SELFPAY ==
[2022-05-03 07:05] LABS: Hemoglobin 14.8 g/dL (13.0-16.5); Mean Corp Hgb Conc 32.2 g/dL (32-36); Mean Corpuscular Hgb 29.2 pg (27.0-32.0); Mean Corpuscular Volume 90.9 fL (80-94); Platelet Count 301 K/mm3 (150-450); RBC Distribution Width CV 13.9 % (11.6-14.6); RBC Distribution Width SD 46.6 fl (35.1-43.9); Red Blood Count 5.06 M/mm3 (4.6-6.2); White Blood Count 9.9 K/mm3 (4.4-11.0)
[2022-05-03 07:40] LABS: ALB/GLOB Ratio 1.4 RATIO (0.9-2.4); AST(SGOT) 28 U/L (15-37); Alanine Aminotransfer ALT/SGPT 40 U/L (16-61); Albumin, Serum 4.6 g/dL (3.2-5.0); Alkaline Phosphatase 71 U/L (45-117); Anion Gap 4 (5-15); BUN 23 mg/dL (7-18); BUN/Creat Ratio 24.1 RATIO (10-20); Calcium,Total 9.5 mg/dL (8.5-10.1); Chloride 105 mmol/L (98-107); Creatinine, Serum 0.96 mg/dL (0.70-1.30); EST Glomerular Filtration Rate 86 mL/min (>60); Est Glom Filt Rate - Afr Amer 105 mL/min (>60); Globulin 3.3 g/dL (2.2-4.2); Glucose 73 mg/dL (74-106); Potassium 4.1 mmol/L (3.5-5.1); Protein, Total 7.9 g/dL (6.4-8.2); Sodium Level 136 mmol/L (136-145)
[2022-05-03 07:55] LABS: Hemoglobin A1c 5.2 % (3.8-5.6)
[2022-05-04 16:10] LABS: Lipoprotein A 80.6 nmol/L (<75.0)
== END | disposition home or self-care (01) ==
LOC: LAB 06:21
PROVIDERS: PCP Nurse Practitioner Primary Care; Referring Provider Nurse Practitioner Primary Care; Visit Provider Nurse Practitioner Primary Care
DX: Z00.00 Encounter for general adult medical examination without abnormal findings (principal)
CPT/HCPCS: 36415; 80053; 83036; 83695; 85027

== ENCOUNTER → 2022-05-09 | Outpatient (CLI) | payer BC, SELFPAY ==
[2022-05-09 11:43] LABS: Cholesterol 200 mg/dL (200); High Density Lipoprotein 73 mg/dL; Triglycerides 69 mg/dL; Very Low Density Lipoprotein 14 mg/dL (5-40)
[2022-05-09 12:10] LABS: Hepatitis C Antibody Non-Reactive (Nonreactive)
== END | disposition home or self-care (01) ==
LOC: LAB 10:24
PROVIDERS: PCP Nurse Practitioner Primary Care; Referring Provider Nurse Practitioner Primary Care; Visit Provider Nurse Practitioner Primary Care
DX: Z00.00 Encounter for general adult medical examination without abnormal findings (principal); Z11.59 Encounter for screening for other viral diseases
CPT/HCPCS: 36415; 80061; 86803

== ENCOUNTER → 2023-02-01 | Outpatient (CLI) | payer BC, SELFPAY ==
--- NOTE | 2023-02-01 06:37 | CT_ITS ---
STUDY: LOW DOSE CT LUNG CANCER SCREENING REASON FOR EXAM: Male, 57 years old. h/o Tobacco Dependency. One pack per day x4 years. Quit December 2021 COPD. RADIATION DOSAGE (If Supplied By Facility): CTDIvol = ( 4.02 ) mGy, DLP = ( 133.41 ) mGycm TECHNIQUE: No contrast was administered. Low dose technique was utilized (average mAS-38 and kVp 120). 1.25 mm axial source images with a slice interval of 1.25-mm were reconstructed in lung windows with coronal sagittal reformats COMPARISON: Chest CT January 04, 2022. CTA chest January 17, 2022 NODULES: No suspicious pulmonary nodules. Parenchyma: Lungs are hyperexpanded with mild to moderate diffuse centrilobular emphysematous change no consolidation, effusion, pneumothorax. Mild basilar subsegmental atelectasis. Endobronchial lesion: No endobronchial lesion. Mild basilar peribronchial thickening. Aorta: Aortic atherosclerosis without ectasia or intramural hematoma. CORONARY ARTERIES: Mild calcified atherosclerosis in the left anterior descending Heart: No cardiomegaly or pericardial effusion. Pulmonary artery: No main pulmonary arterial enlargement. Mediastinal nodes: No mediastinal or hilar adenopathy by size criteria. Other chest and abdominal findings: Unremarkable thyroid. Unremarkable esophagus. No acute finding within the upper abdomen. CT/Low Dose CT Lung Screening IMPRESSION: No suspicious pulmonary nodules. Moderate emphysematous change. Mild peribronchial thickening is seen which can be seen with mild superimposed acute inflammation. Lung-RADS category 1 - Continue annual screening with LDCT in 12 months. IMPORTANT NOTES FOR USE: ACR Lung-RADS Version 1.1 Assessment Categories Release Date: 2018 Category: Coded 0-4 bases on nodule(s) with highest degree of suspicion. Negative screen is defined as categories 1 and 2; a positive screen is defined as categories 3 and 4. Category 3 and 4A nodules that are unchanged on interval CT should be coded as category 2, and individuals returned to screening in 12 months. Category 4X: Category 3 or 4 nodules with additional imaging findings that increase the suspicion of lung cancer, such as spiculation, GGN that doubles in size in 1 year, enlarged lymph notes, etc. Category Modifiers: S (significant finding unrelated to lung cancer) Electronically Signed: Jason Calhoun MD at 7:48 EDT ,
== END | disposition home or self-care (01) ==
PROVIDERS: PCP Nurse Practitioner Primary Care; Referring Provider Internal Medicine Critical Care Medicine; Visit Provider Internal Medicine Critical Care Medicine
DX: Z12.2 Encounter for screening for malignant neoplasm of respiratory organs (principal); F17.211 Nicotine dependence, cigarettes, in remission
CPT/HCPCS: 71271

== ENCOUNTER → 2023-02-04 | Outpatient (CLI) | payer BC, SELFPAY ==
[2023-02-05 10:40] LABS: Color, Urine Straw (Yellow); Glucose, Dipstick Normal (Normal); Ketone-Dipstick Negative (Negative); Leukocyte Esterase-Dipstick Negative /ul (Negative); Nitrite-Dipstick Negative (Negative); Occult Blood-Urine Negative /ul (Negative); Protein-Dipstick Negative (Negative); Urine Bilirubin Dipstick Negative (Negative); Urine Clarity Clear (Clear); Urine Urobilinogen Normal (Normal); Urine pH 6.5 (5.0 - 8.0)
[2023-02-05 11:05] LABS: Bacteria 0 SEEN /hpf (None Seen); Mucous, Urine 0 SEEN /hpf (<or=2+); Red Blood Cells-Urine 0 SEEN /hpf (0-5); Squamous Epithelial Cells - UA 0 SEEN /hpf (0-5); White Blood Cells 0 SEEN /hpf (0-5)
== END | disposition home or self-care (01) ==
LOC: LABSPEC 02-05 10:00
PROVIDERS: PCP Nurse Practitioner Primary Care; Referring Provider Nurse Practitioner Family; Visit Provider Nurse Practitioner Family
DX: R21 Rash and other nonspecific skin eruption (principal)
CPT/HCPCS: 81001; 87086; 87491; 87591

== ENCOUNTER → 2023-05-01 | Outpatient (CLI) | payer BC, SELFPAY ==
[2023-05-01 08:00] LABS: Hematocrit 49.1 % (40-54); Hemoglobin 15.5 g/dL (13.0-16.5); Mean Corp Hgb Conc 31.6 g/dL (32-36); Mean Corpuscular Hgb 29.9 pg (27.0-32.0); Mean Corpuscular Volume 94.6 fL (80-94); Mean Platelet Vol. 10.1 fl (6.2-12.0); Platelet Count 310 K/mm3 (150-450); RBC Distribution Width CV 13.8 % (11.6-14.6); RBC Distribution Width SD 48.1 fl (35.1-43.9); Red Blood Count 5.19 M/mm3 (4.6-6.2); White Blood Count 9.7 K/mm3 (4.4-11.0)
[2023-05-01 08:27] LABS: ALB/GLOB Ratio 1.1 RATIO (0.9-2.4); AST(SGOT) 20 U/L (15-37); Alanine Aminotransfer ALT/SGPT 40 U/L (16-61); Alkaline Phosphatase 69 U/L (45-117); Anion Gap 0 (5-15); BUN 15 mg/dL (7-18); BUN/Creat Ratio 14.2 RATIO (10-20); Calcium,Total 9.2 mg/dL (8.5-10.1); Chloride 108 mmol/L (98-107); Cholesterol 171 mg/dL (200); Creatinine, Serum 1.06 mg/dL (0.70-1.30); EST Glomerular Filtration Rate 76 mL/min (>60); Est Glom Filt Rate - Afr Amer 93 mL/min (>60); Globulin 3.6 g/dL (2.2-4.2); Glucose 103 mg/dL (74-106); High Density Lipoprotein 52 mg/dL; PSA,Total - Annual Screen 1.26 ng/mL (0.00-4.00); Potassium 4.6 mmol/L (3.5-5.1); Protein, Total 7.6 g/dL (6.4-8.2); Sodium Level 139 mmol/L (136-145); Triglycerides 70 mg/dL; Very Low Density Lipoprotein 14 mg/dL (5-40)
[2023-05-01 08:31] LABS: Hemoglobin A1c 4.9 % (3.8-5.6)
== END | disposition home or self-care (01) ==
LOC: LAB 07:45
PROVIDERS: PCP Nurse Practitioner Family; Referring Provider Nurse Practitioner Family; Visit Provider Nurse Practitioner Family
DX: Z00.00 Encounter for general adult medical examination without abnormal findings (principal); Z12.5 Encounter for screening for malignant neoplasm of prostate; Z13.1 Encounter for screening for diabetes mellitus; Z13.220 Encounter for screening for lipoid disorders; D72.829 Elevated white blood cell count, unspecified
CPT/HCPCS: 36415; 80053; 80061; 83036; 84153; 85027; G0103

== ENCOUNTER → 2024-02-26 | Outpatient (CLI) | payer BC, SELFPAY ==
--- NOTE | 2024-02-26 06:32 | CT_ITS ---
EXAM: CT CHEST, LUNG CANCER SCREENING WITHOUT INTRAVENOUS CONTRAST CLINICAL INDICATION: SMOKER TECHNIQUE: Helically acquired images were obtained of the chest without intravenous contrast using low dose (LDCT) lung cancer screening protocol. This CT exam was performed using one or more of the following dose reduction techniques: automated exposure control, adjustment of the mA and/or kV according to patient size, and/or use of iterative reconstruction technique. COMPARISON: CT Lung Cancer Screening dated 02/01/2023 FINDINGS: LUNGS AND PLEURAL SPACES: Stable scarring at the right lung base. Centrilobular and paraseptal emphysematous changes of lungs again noted. No evidence of a lung mass or suspicious pulmonary nodule. No pleural effusion or thickening. No pneumothorax. HEART: Normal. No pericardial effusion. Normal heart size. Mild coronary artery calcification. MEDIASTINUM: Normal. No mediastinal or hilar adenopathy. Esophagus is unremarkable. No hiatal hernia. THYROID: Normal. No thyroid nodules or calcification. BONES/JOINTS: No suspicious lytic or blastic abnormality. VASCULATURE: No aortic aneurysm. LYMPH NODES: Normal. No enlarged lymph nodes. CT/Low Dose CT Lung Screening IMPRESSION: 1. No evidence of lung mass or nodule. 2. Stable diffuse pulmonary emphysema. Lung-RADS score: 1S - Negative. Additional clinically significant or potentially clinically significant findings are described. Recommend continued annual screening with a low-dose CT (LDCT) in 12 months. Electronically Signed: Dante Coronel MD at 17:50 EDT ,
== END | disposition home or self-care (01) ==
PROVIDERS: PCP Nurse Practitioner Family; Referring Provider Nurse Practitioner Acute Care; Visit Provider Nurse Practitioner Acute Care
DX: Z12.2 Encounter for screening for malignant neoplasm of respiratory organs (principal); F17.211 Nicotine dependence, cigarettes, in remission
CPT/HCPCS: 71271

== ENCOUNTER 2024-03-11 11:48 | Emergency (ER) | payer BC, SELFPAY ==
[2024-03-11] VITALS (8 sets, daily range): BP systolic 110–129; BP diastolic 62–76; PULSE 62–85; RESP 16–36; TEMP 36.3–37; O2SAT 33–99; BMI 30.9
[2024-03-11] MEDS: Ondansetron 4 MG/2 ML Vial IV (12:04)
[2024-03-11] MEDS: Morphine 4 MG/ML Syringe IV ×2 (12:04→13:59)
--- NOTE | 2024-03-11 12:19 | EDS_ITS ---
HPI History of Present Illness Chief Complaint: Trauma Informant: patient and EMS Narrative Narrative: 58-year-old male presenting to the emergency room via EMS with a chief complaint of left leg injury. Patient was cutting down a tree when he came down and struc k his left leg. EMS notes no obvious deformity. He was vacuum splinted. Patient denies any other injuries. He denies any significant medical problems. [facility] Medical History Arthritis Hernia Infected sebaceous cyst of skin Home Medications ?Medication ?Instructions ?Recorded ?Last Taken ?Type NK 02/04/23 Unknown History Allergy/AdvReac Type Severity Reaction Status Date / Time No Known Allergies Allergy Verified 03/26/23 09:46 Social History Smoking Status: Former smoker ROS ROS ED Constitutional Constitutional ED: Denies chills or weight loss Eyes Eyes: Denies change in vision or diplopia ENT ENT ED: Denies ear pain, rhinorrhea or sore throat Cardiovascular Cardiovascular: Denies chest pain, orthopnea, palpitations or racing heartbeat Respiratory/Chest Respiratory/Chest: Denies cough, dyspnea or orthopnea Gastrointestinal Gastrointestinal: Denies abdominal pain, diarrhea, nausea or vomiting Genitourinary Genitourinary ED: Denies dysuria, hematuria or urinary frequency Musculoskeletal Musculoskeletal: Reports other Details: See history of present illness ; Denies arthralgias, back pain, myalgias or neck pain Integumentary Denies abscess or rash Neurologic Neurologic: Denies headache(s) or weakness Psychiatric Psychiatric: Denies anxiety, depression, suicidal ideation or suicidal thoughts Endocrine Endocrinology: Denies polydipsia, polyphagia or polyuria Allergic/Immunologic Allergic/Immunologic ED: Denies mouth swelling, tongue swelling or urticaria EXAM Physical Exam Const Vital Signs: 03/11/24 11:49 03/11/24 11:59 03/11/24 13:26 Temperature 98.6 F 97.4 F L Temperature Source Temporal Oral Pulse Rate 70 74 Pulse Rate [1 (Initial Baseline)] Pulse Rate [2] Pulse Rate [3] Pulse Rate [4] Respiratory Rate 18 36 H Respiratory Rate [1 (Initial Baseline)] Respiratory Rate [2] Respiratory Rate [3] Respiratory Rate [4] Respiratory Effort Normal Non-Labored Respiratory Depth Normal Respiratory Pattern Normal Blood Pressure 120/72 123/62 H Blood Pressure [1 (Initial Baseline)] Blood Pressure [2] Blood Pressure [3] Blood Pressure Mean 88 82 Pulse Ox 96 97 99 Oxygen Delivery Method Room Air Room Air Room Air Oxygen Delivery Method [1 (Initial Baseline)] Oxygen Delivery Method [2] Oxygen Delivery Method [3] Oxygen Delivery Method [4] Oxygen Flow Rate (L/min) [1 (Initial Baseline)] Oxygen Flow Rate (L/min) [2] Oxygen Flow Rate (L/min) [3] Oxygen Flow Rate (L/min) [4] EtCo2 (Normal 35-45 , high quality CPR 10-20 & ROSC>/=40mmHg EtCo2 (Normal 35-45 , high quality CPR 10-20 & ROSC>/=40mmHg [2] EtCo2 (Normal 35-45 , high quality CPR 10-20 & ROSC>/=40mmHg [3] EtCo2 (Normal 35-45 , high quality CPR 10-20 & ROSC>/=40mmHg [4] 03/11/24 13:30 03/11/24 13:31 03/11/24 13:34 Temperature 98.5 F Temperature Source Pulse Rate 76 Pulse Rate [1 (Initial Baseline)] 85 Pulse Rate [2] 78 Pulse Rate [3] 73 Pulse Rate [4] 62 Respiratory Rate 24 H Respiratory Rate [1 (Initial Baseline)] 30 H Respiratory Rate [2] 35 H Respiratory Rate [3] 28 H Respiratory Rate [4] 28 H Respiratory Effort Respiratory Depth Respiratory Pattern Blood Pressure 128/70 H Blood Pressure [1 (Initial Baseline)] 128/70 H Blood Pressure [2] 110/76 Blood Pressure [3] 115/72 Blood Pressure Mean Pulse Ox 98 Oxygen Delivery Method Room Air Oxygen Delivery Method [1 (Initial Baseline)] Nasal Cannula Oxygen Delivery Method [2] Nasal Cannula Oxygen Delivery Method [3] Nasal Cannula Oxygen Delivery Method [4] Nasal Cannula Oxygen Flow Rate (L/min) [1 (Initial Baseline)] 2 Oxygen Flow Rate (L/min) [2] 2 Oxygen Flow Rate (L/min) [3] 3 Oxygen Flow Rate (L/min) [4] 3 EtCo2 (Normal 35-45 , high quality CPR 10-20 & ROSC>/=40mmHg 35 EtCo2 (Normal 35-45 , high quality CPR 10-20 & ROSC>/=40mmHg [2] 25 EtCo2 (Normal 35-45 , high quality CPR 10-20 & ROSC>/=40mmHg [3] 30 EtCo2 (Normal 35-45 , high quality CPR 10-20 & ROSC>/=40mmHg [4] 35 03/11/24 13:51 03/11/24 14:00 03/11/24 14:24 Temperature 97.4 F L 97.6 F L Temperature Source Oral Pulse Rate 69 70 Pulse Rate [1 (Initial Baseline)] Pulse Rate [2] Pulse Rate [3] Pulse Rate [4] Respiratory Rate 16 18 Respiratory Rate [1 (Initial Baseline)] Respiratory Rate [2] Respiratory Rate [3] Respiratory Rate [4] Respiratory Effort Respiratory Depth Respiratory Pattern Blood Pressure 129/76 H 126/70 H Blood Pressure [1 (Initial Baseline)] Blood Pressure [2] Blood Pressure [3] Blood Pressure Mean 93 88 Pulse Ox 96 95 Oxygen Delivery Method Room Air Room Air Oxygen Delivery Method [1 (Initial Baseline)] Oxygen Delivery Method [2] Oxygen Delivery Method [3] Oxygen Delivery Method [4] Oxygen Flow Rate (L/min) [1 (Initial Baseline)] Oxygen Flow Rate (L/min) [2] Oxygen Flow Rate (L/min) [3] Oxygen Flow Rate (L/min) [4] EtCo2 (Normal 35-45 , high quality CPR 10-20 & ROSC>/=40mmHg 36 EtCo2 (Normal 35-45 , high quality CPR 10-20 & ROSC>/=40mmHg [2] EtCo2 (Normal 35-45 , high quality CPR 10-20 & ROSC>/=40mmHg [3] EtCo2 (Normal 35-45 , high quality CPR 10-20 & ROSC>/=40mmHg [4] Positive well nourished and well developed General Appearance ED: well developed HEENT Reports normocephalic, head/scalp atraumatic and moist mucous membranes Eyes PERRL and EOMs intact bilaterally Neck no lymphadenopathy, supple and no JVD Resp normal respiratory effort and clear to auscultation bilaterally Cardio regular rate, regular rhythm and no murmurs GI normal to inspection, nondistended, normoactive bowel sounds and non-tender Palpation: soft Back/Spine no CVA tenderness and normal ROM Extremity Extremity Narrative: There is swelling tenderness and deformity to the mid to proximal left tib-fib. Distally the toes appear of normal color. There is a strong dorsalis pedis and posterior tibial pulse. Left leg compartments are still soft. He is able to wiggle the toes. General Extremety ED: Negative for edema General Extremity: Negative for edema Neuro oriented x3 and CN's II-XII intact bilaterally Sensorium / Orientation: alert Motor Exam: strength 5/5 throughout Psych mental status grossly normal Mood & Affect: Negative for depressed or tearful Skin no rashes or lesions noted Skin Narrative: There are abrasions and contusions of the left tib-fib region. PROC Procedures Procedural Sedation 1 (Initial Baseline): Consent Signed: Yes Any Problems With Anesthesia: No You/Your family experience fever (hyperthermia) w/anesthesia: No Sedation medication: Propofol Dose: 200 Route: IV Total Moderate Sedation Units: 12 Maliampati Score: Class II ASA Classification: I MDM MDM MDM Narrative Medical decision making narrative: Differential diagnosis includes but not limited to fracture neurovascular injury compartment syndrome contusion muscular injury tendon injury Patient appears neurovascularly intact. I do not see an open component to the injury. My independent interpretation of plain films of the left knee and left tib-fib are acute fractures in a segmental pattern of the tibial shaft the fibular head and the fibular shaft. Patient received pain and nausea medication. I spoke with Dr. Wolfe from orthopedics. We are unable to secure the surgical equipment to do this procedure today. He recommends transfer to trauma center. Patient underwent procedural sedation for reduction of fracture and splinting. Patient received 1 mg/kg IV bolus of propofol followed by half milligram per kilogram aliquots until adequate sedation and maintenance was achieved. Patient was placed in a well-padded posterior and stirrup Ortho-Glass splint. He was allowed to recover without significant incident. Patient remained neurovascularly intact distally with good pink toes and sensation. I spoke with [facility] transfer line and emergency Dr. Vivar who has accepted the patient. We are currently awaiting ground transfer History & Record Review Discussion w/independent historian: Patient Lab Data Attestation: I reviewed the patient's lab results. Labs: Laboratory Results - last 24 hr 03/11/24 12:08 WBC 10.7 RBC 4.59 L Hgb 13.8 Hct 42.5 MCV 92.6 MCH 30.1 MCHC 32.5 RDW Std Deviation 44.6 H RDW Coeff of Andrea 13.0 Plt Count 291 MPV 9.9 Immature Gran % (Auto) 0.300 Neut % (Auto) 67.1 Lymph % (Auto) 21.9 [place] % (Auto) 7.0 Eos % (Auto) 3.1 Baso % (Auto) 0.6 Absolute Neuts (auto) 7.2 Absolute Lymphs (auto) 2.34 Nucleated RBC % 0 PT 13.9 INR 1.1 APTT 24.4 Sodium 141 Potassium 3.5 Chloride 106 Carbon Dioxide 29.0 Anion Gap 6 BUN 17 Creatinine 1.08 Estim Creat Clear Calc 82.21 Est GFR (MDRD) Af Amer 90 Est GFR (MDRD) Non-Af 75 BUN/Creatinine Ratio 15.7 Glucose 136 H Calcium 9.3 Radiography Diagnostic Testing: Clinical Impression(s) from Imaging Studies Knee X-Ray 03/11/24 12:25 IMPRESSION: Acute fractures of the proximal shaft of the tibia and the neck of the fibula. Electronically Signed: Chilo Monreal MD at 12:59 EDT Reading Location ID and State: [id number] / [employer] , Service support , Tibia/Fibula X-Ray 03/11/24 12:25 IMPRESSION: Multiple acute fractures of the tibia and fibula as described above. Electronically Signed: Chilo Monreal MD at 13:00 EDT Reading Location ID and State: [id number] / [employer] [facility] , Service support , Management Discussion w/another healthcare provider: [employer]st (Dr. Wolfe) Discharge Plan Triage Chief Complaint: Trauma ED Provider: Garrison Velásquez Dx/Rx/DC Orders Clinical Impression: Closed left tibial fracture, Closed left fibular fracture, Abrasion of left leg Prescriptions: No Action NK Primary Care Provider: ROSA BUSTILLOS Referrals: ROSA BUSTILLOS, EDITING CLERK-C [Primary Care Provider] - Print Language: Indonesian Disposition Disposition: Acute Care Hospital Discharge Location: [facility] Discharge Date/Time: 03/11/24 14:59
--- NOTE | 2024-03-11 12:25 | RAD_ITS ---
STUDY: X-RAY - LEFT KNEE REASON FOR EXAM: Male, 58 years old. trauma TECHNIQUE: 2 view(s) of the knee. COMPARISON: None. FINDINGS: Normal visualized distal femur. Incompletely imaged acute medially displaced oblique fracture of the proximal shaft of the tibia. Associated fracture of the fibular neck. Normal proximal tibiofibular articulation. Normal medial femorotibial compartment. Normal lateral femorotibial compartment. Normal patellofemoral articulation. The soft tissue structures are unremarkable. RAD/Knee 1 or 2 Views IMPRESSION: Acute fractures of the proximal shaft of the tibia and the neck of the fibula. Electronically Signed: Chilo Monreal MD at 12:59 EDT ,
--- NOTE | 2024-03-11 12:25 | RAD_ITS ---
STUDY: X-RAY - LEFT TIBIA AND FIBULA REASON FOR EXAM: Male, 58 years old. trauma TECHNIQUE: 2 view(s) of the tibia and fibula were obtained. COMPARISON: None. FINDINGS: Acute posterior minimally displaced oblique fracture of the proximal shaft of the tibia. Another nondisplaced oblique fracture of the distal shaft of the tibia. Acute medially angulated oblique fracture of the mid shaft of the fibula. Acute fracture of the fibular neck. The soft tissue structures are unremarkable. RAD/Tibia & Fibula 2 Views IMPRESSION: Multiple acute fractures of the tibia and fibula as described above. Electronically Signed: Chilo Monreal MD at 13:00 EDT ,
[2024-03-11 12:44] LABS: Absolute Lymphocyte Count 2.34 X10^3/uL (0.83-4.51); Absolute Neutrophil Count 7.2 X10^3/uL (2.0-7.7); Basophil# 0.06 X10^3/uL; Basophil% 0.6 % (0-1); Eosinophil# 0.33 X10^3/uL; Eosinophils% 3.1 % (0-5); Hematocrit 42.5 % (40-54); Hemoglobin 13.8 g/dL (13.0-16.5); Lymphocyte # 2.34 X10^3/ul (0.83-4.51); Lymphocyte % 21.9 % (19-41); Mean Corp Hgb Conc 32.5 g/dL (32-36); Mean Corpuscular Hgb 30.1 pg (27.0-32.0); Mean Corpuscular Volume 92.6 fL (80-94); Mean Platelet Vol. 9.9 fl (6.2-12.0); Monocyte# 0.75 X10^3/uL; NRBC Flagged by Analyzer 0 % (0-5); Neutrophil # 7.19 X10^3/uL (2.7-7.7); Neutrophil % 67.1 % (47-70); Platelet Count 291 K/mm3 (150-450); RBC Distribution Width SD 44.6 fl (35.1-43.9); Red Blood Count 4.59 M/mm3 (4.6-6.2); White Blood Count 10.7 K/mm3 (4.4-11.0)
[2024-03-11 13:03] LABS: Anion Gap 6 (5-15); BUN 17 mg/dL (7-18); BUN/Creat Ratio 15.7 RATIO (10-20); Calcium,Total 9.3 mg/dL (8.5-10.1); Chloride 106 mmol/L (98-107); Creatinine, Serum 1.08 mg/dL (0.70-1.30); EST Glomerular Filtration Rate 75 mL/min (>60); Est Glom Filt Rate - Afr Amer 90 mL/min (>60); Estimated Creatinine Clearance 82.21 ml/min; Glucose 136 mg/dL (74-106); Potassium 3.5 mmol/L (3.5-5.1); Sodium Level 141 mmol/L (136-145)
[2024-03-11 13:19] LABS: Partial Thromboplast Time 24.4 Seconds (24.1-36.2)
[2024-03-11 13:36] LABS: International Normalized Ratio 1.1; Prothrombin Time (Protime)PT. 13.9 SECONDS (11.7-14.9)
[2024-03-11] MEDS: Propofol 200 MG/20 ML Vial IV BOLUS (13:48)
== END 2024-03-11 14:59 | disposition short-term general hospital (02) ==
PROVIDERS: Emergency Provider Emergency Medicine; PCP Nurse Practitioner Family; Visit Provider Emergency Medicine
DX: S82.202A Unspecified fracture of shaft of left tibia, initial encounter for closed fracture (principal); S82.402A Unspecified fracture of shaft of left fibula, initial encounter for closed fracture; S80.812A Abrasion, left lower leg, initial encounter; Z87.891 Personal history of nicotine dependence; X58.XXXA Exposure to other specified factors, initial encounter
CPT/HCPCS: 29505; 73560; 73590; 80048; 85025; 85610; 85730; 96374; 96375; 96376; 99156; 99285; A4216; J2405

== ENCOUNTER → 2024-05-08 | Outpatient (CLI) | payer BC, SELFPAY ==
[2024-05-08 11:00] LABS: Hemoglobin 14.1 g/dL (13.0-16.5); Mean Corpuscular Hgb 29.5 pg (27.0-32.0); Mean Corpuscular Volume 92.1 fL (80-94); Mean Platelet Vol. 9.1 fl (6.2-12.0); Platelet Count 365 K/mm3 (150-450); RBC Distribution Width CV 13.3 % (11.6-14.6); RBC Distribution Width SD 45.6 fl (35.1-43.9); Red Blood Count 4.78 M/mm3 (4.6-6.2); White Blood Count 13.2 K/mm3 (4.4-11.0)
[2024-05-08 11:36] LABS: ALB/GLOB Ratio 1.5 RATIO (0.9-2.4); AST(SGOT) 26 U/L (15-37); Alanine Aminotransfer ALT/SGPT 48 U/L (16-61); Albumin, Serum 4.8 g/dL (3.2-5.0); Alkaline Phosphatase 87 U/L (45-117); Anion Gap 5 (5-15); BUN 17 mg/dL (7-18); BUN/Creat Ratio 18.5 RATIO (10-20); Calcium,Total 9.7 mg/dL (8.5-10.1); Chloride 99 mmol/L (98-107); Cholesterol 188 mg/dL (200); Creatinine, Serum 0.92 mg/dL (0.70-1.30); EST Glomerular Filtration Rate 90 mL/min (>60); Est Glom Filt Rate - Afr Amer 109 mL/min (>60); Globulin 3.1 g/dL (2.2-4.2); Glucose 101 mg/dL (74-106); High Density Lipoprotein 52 mg/dL; PSA,Total - Annual Screen 0.98 ng/mL (0.00-4.00); Potassium 4.5 mmol/L (3.5-5.1); Protein, Total 7.9 g/dL (6.4-8.2); Sodium Level 133 mmol/L (136-145); Triglycerides 46 mg/dL; Very Low Density Lipoprotein 9 mg/dL (5-40)
== END | disposition home or self-care (01) ==
LOC: LAB 10:45
PROVIDERS: PCP Nurse Practitioner Family; Referring Provider Nurse Practitioner Family; Visit Provider Nurse Practitioner Family
DX: Z00.00 Encounter for general adult medical examination without abnormal findings (principal)
CPT/HCPCS: 36415; 80053; 80061; 84153; 85027; G0103

== ENCOUNTER → 2024-11-14 | Outpatient (CLI) | payer BC, SELFPAY ==
--- OUTSIDE RECORDS SUMMARY | 2024-11-14 06:33 | XMS RPT_ITS | CCD ---
Author Organization [facility] Care Team Providers Care Web Weaver Name Role Phone CAROLINE PULIDO, APARNA Primary Care Physician ffens VENTILATOR SPECIALIST, VENTILATOR SPECIALIST-C Yamilka Primary Care Provider Ericns VENTILATOR SPECIALIST, VENTILATOR SPECIALIST-C Yamilka Referring Provider [phone] Queta VENTILATOR SPECIALIST, VENTILATOR SPECIALIST-C Yamilka Other Provider [phone] Dr. Nemesio Alas Attending Provider Queta VENTILATOR SPECIALIST, VENTILATOR SPECIALIST-C Yamilka Primary Care Provider Queta VENTILATOR SPECIALIST, VENTILATOR SPECIALIST-C Yamilka Referring Provider [phone] Queta VENTILATOR SPECIALIST, VENTILATOR SPECIALIST-C Yamilka Other Provider [phone] Dr. Nemesio Alas Attending Provider Seffens VENTILATOR SPECIALIST, VENTILATOR SPECIALIST-C Yamilka Primary Care Provider Ericns VENTILATOR SPECIALIST, VENTILATOR SPECIALIST-C Yamilka Referring Provider [phone] Val FATIMA, AKUA Haque Attending Provider Dr. Santiago Ziegler Attending Provider Poppy VENTILATOR SPECIALIST, VENTILATOR SPECIALIST-C Aparna Burnett Attending Provider [phone] Queta VENTILATOR SPECIALIST, VENTILATOR SPECIALIST-C Yamilka Primary Care Provider Seffens VENTILATOR SPECIALIST, VENTILATOR SPECIALIST-C Yamilka Referring Provider [phone] Poppy VENTILATOR SPECIALIST, VENTILATOR SPECIALIST-C Aparna Burnett Attending Provider Britany VENTILATOR SPECIALIST, VENTILATOR SPECIALIST-C Amairani Attending Provider Ashu STOCK CONTROL CLERK, Rosa K Primary Care Provider Marcin PULIDO, Carisa Unavailable Venkatesh GLOBAL SALES MANAGER.STOCK CONTROL CLERK, Betzaida Unavailable Apolonia PT, Betty Unavailable ASHU, ROSA K Primary Care Unavailable CARISA BURCH Attending Unavailable ASHU, ROSA K Primary Care Unavailable CARISA BRUCH Attending Unavailable ASHU, ROSA K Referring Unavailable ASHU, ROSA K Primary Care Unavailable ASHU, ROSA K Referring Unavailable KELLEN, SKYLER Attending Unavailable ASHU, ROSA K Primary Care Unavailable ASHU, ROSA K Primary Care Unavailable ASHU, ROSA K Referring Unavailable KELLEN, SKYLER Attending Unavailable ASHU, ROAS K Primary Care Unavailable ASHU, ROSA K Referring Unavailable ASHU, ROSA K Primary Care Unavailable KELLEN, SKYLER Attending Unavailable ASHU, ROSA K Referring Unavailable ASHU, ROSA K Referring Unavailable KELLEN, SKYLER Attending Unavailable ASHU, ROSA K Primary Care Unavailable ASHU, ROSA K Referring Unavailable WING HENDERSON Attending Unavailable ASHU, ROSA K Primary Care Unavailable ASHU, ROSA K Referring Unavailable WING HENDERSON Attending Unavailable ASHU, ROSA K Primary Care Unavailable ASHU, ROSA K Referring Unavailable KELLEN, SKYLER Attending Unavailable ASHU, ROSA K Primary Care Unavailable ASHU, ROSA K Referring Unavailable KELLEN, SKYLER Attending Unavailable ASHU, ROSA K Primary Care Unavailable ASHU, ROSA K Referring Unavailable KELLEN, SKYLER Attending Unavailable ASHU, ROSA K Primary Care Unavailable ASHU, ROSA K Referring Unavailable ASHU, ROSA K Primary Care Unavailable ASHU, ROSA K Referring Unavailable KELLEN, SKYLER Attending Unavailable ASHU, ROSA K Primary Care Unavailable ASHU, ROSA K Referring Unavailable KELLEN, SKYLER Attending Unavailable ASHU, ROSA K Primary Care Unavailable ASHU, ROSA K Referring Unavailable KELLEN, SKYLER Attending Unavailable ASHU, ROSA K Primary Care Unavailable ASHU, ROSA K Referring Unavailable KELLEN, SKYLER Attending Unavailable ASHU, ROSA K Primary Care Unavailable ASHU, ROSA K Referring Unavailable KELLEN, SKYLER Attending Unavailable ASHU, ROSA K Primary Care Unavailable ASHU, ROSA K Referring Unavailable ASHU, ROSA K Primary Care Unavailable ASHU, ROSA K Primary Care Unavailable ASHU, ROSA K Referring Unavailable KELLEN, SKYLER Attending Unavailable ASHU, ROSA K Referring Unavailable KELLEN, SKYLER Attending Unavailable ASHU, ROSA K Primary Care Unavailable ASHU, ROSA K Primary Care Unavailable ASHU, ROSA K Referring Unavailable SANTIAGO, WING Attending Unavailable ASHU, ROSA K Referring Unavailable KELLEN, SKYLER Attending Unavailable ASHU, ROSA K Primary Care Unavailable ASHU, ROSA K Referring Unavailable KELLEN, SKYLER Attending Unavailable ASHU, ROSA K Primary Care Unavailable ASHU, ROSA K Primary Care Unavailable MARCIN, CARISA Referring Unavailable KELLEN, SKYLER Attending Unavailable ASHU, ROSA K Primary Care Unavailable MARCIN, CARISA Referring Unavailable ASHU, ROSA K Primary Care Unavailable ASHU, ROSA K Referring Unavailable ASHU, ROSA K Referring Unavailable SANTIAGO, WING Attending Unavailable ASHU, ROSA K Primary Care Unavailable ASHU, ROSA K Referring Unavailable KELLEN, SKYLER Attending Unavailable ASHU, ROSA K Primary Care Unavailable ASHU, ROSA K Referring Unavailable SANTIAGO, WING Attending Unavailable ASHU, ROSA K Primary Care Unavailable ASHU VENTILATOR SPECIALIST-C, ROSA Primary Care Provider ASHU VENTILATOR SPECIALIST-C, ROSA Referring Provider [phone] Moises Dennis Attending Provider Garrison Velásquez Attending Unavailable ASHU, ROSA Primary Care Unavailable ASHU, ROSA Attending Unavailable ASHU, ROSA Referring Unavailable ASHU, ROSA Primary Care Unavailable ASHU, ROSA Primary Care Unavailable Britany VENTILATOR SPECIALIST, Amairani Attending Unavailable Britany VENTILATOR SPECIALIST, Amairani Referring Unavailable ASHU, ROSA Referring Unavailable ASHU, ROSA Primary Care Unavailable Moises Dennis Attending Unavailable Queta VENTILATOR SPECIALIST, Yamilka Referring Unavailable Mary Corral Attending Unavailable ASHU, ROSA Primary Care Unavailable Medications Current Medications Medication Drug Class(es) Dates Sig (Normalized) Sig (Original) acetaminophen 500 mg oral tablet (12 sources) Start: 06-03-2024 take 1 tablet by mouth every six hours as needed Acetaminophen (Tylenol Extra Strength) 500 mg tablet Active 500 mg PO EVERY 6 HOURS as needed June 03, 2024 1:00am Start: 03-19-2024 End: 03-29-2024 take 2 tablets by mouth every eight hours as needed acetaminophen (TYLENOL) 500 mg tablet Take 2 tablets by mouth every 8 hours as needed for pain for up to 10 days. 60 tablet 03/19/2024 03/29/2024 Active acetaminophen 325 mg / HYDROcodone bitartrate 5 mg oral tablet (10 sources) Opioid Agonist Start: 01-17-2022 End: 05-15-2022 take 1 tablet by mouth every six hours as needed for pain [place] 325- 5 mg oral tablet Dose = 1 tab(s), Oral, q6h, PRN for pain, X 5 day(s), # 20 tab(s), 0 Refill(s), Pharmacy: [facility]/pharmacy #[id number], Acute pain, 172.7, cm, 01/17/22 15:32:00 EDT, Height, 77.3 Start Date: 01/18/22 Stop Date: 01/23/22 Status: Ordered Start: 01-17-2022 End: 05-15-2022 take 1 tablet by mouth every six hours as needed Hydrocodone-Acetaminophen Discontinued 1 TABLET PO EVERY 6 HOURS NEEDED 02 27January 17, 2022 May 15, 2022 2:07pm Albuterol 90 mcg/actuation aerosol (1 source) Start: 06-03-2024 Albuterol 90 mcg/actuation aerosol Active ug INHALATION June 03, 2024 1:00am aspirin 81 mg delayed release oral tablet (20 sources) Platelet Aggregation Inhibitor, Nonsteroidal Anti-inflammatory Drug Start: 03-19-2024 End: 04-02-2024 take 1 tablet by mouth twice daily, then take 1 tablet by mouth once daily aspirin, enteric coated (ASPIRIN, ENTERIC COATED) 81 mg EC tablet Take 1 tablet by mouth two times a day for 14 days. ONCE TWO TIMES A DAY DOSING COMPLETED, THEN OKAY TO RESUME DAILY HOME DOSE 28 tablet 03/19/2024 11:10 AM EDT 03/19/2024 Active Start: 05-15-2022 End: 02-04-2023 take 1 tablet by mouth once daily Aspirin (Adult Aspirin Regimen) 81 mg tablet,delayed release (DR/EC) Discontinued 81 mg PO DAILY May 15, 2022 1:00am February 04, 2023 8:54am cefuroxime 500 mg oral tablet (1 source) Cephalosporin Antibacterial Start: 01-18-2022 End: 01-25-2022 cefuroxime 500 mg oral tablet Dose : 500 mg = 1 tab(s), Oral, BID, X 7 day(s), # 14 tab(s), 0 Refill(s), 01/25/22 13:57:00 EDT, Pharmacy: [facility]/pharmacy #[id number], 172.7, cm, 01/17/22 15:32:00 EDT, Height, 77.3 Start Date: 01/18/22 Stop Date: 01/25/22 Status: Ordered cholecalciferol, vitamin D3, (VITAMIN D3 ORAL) (20 sources) Start: 03-20-2024 take 1 tablet by mouth once daily cholecalciferol, vitamin D3, (VITAMIN D3 ORAL) Take 1 tablet by mouth once daily. 03/20/2024 Active docosahexaenoic acid/epa (FISH OIL ORAL) (20 sources) take 2 tablets by mouth once daily docosahexaenoic acid/epa (FISH OIL ORAL) Take 2 tablets by mouth once daily. Active take 2 tablets by mouth once jay ly docosahexaenoic acid/epa (FISH OIL ORAL) Take 2 tablets by mouth once daily. Suspended Mggxtdsmwvw-Iqmjqllel-Wlnmxb er (1 source) Anticholinergic, Corticosteroid, beta2-Adrenergic Agonist Start: 06-27-2024 Xakzwnzahuf-Ojchkkzns-Pjqrmd er (Trelegy Ellipta) 100-62.5-25 mcg blister with device Active 1 NMA INHALATION Q24H 60 June 27, 2024 1:00am MULTIVITAMIN ORAL (20 sources) Start: 03-20-2024 t a evon e 1 t a b l e t b y m o u t h o n c e d a i l y MULTIVITAMIN ORAL Take 1 tablet by mouth once daily. 03/20/2024 Active naproxen 250 mg oral tablet (20 sources) Nonsteroidal Anti-inflammatory Drug Start: 06-03-2024 t anisha figueroa e 1 t a b l e t b y m o u t h t w i c e d a i l y a s n e e d e d Naproxen 250 mg tablet Active 250 mg PO TWICE A DAY as needed June 03, 2024 1:00am Start: 03-20-2024 naproxen (NAPR OSYN) 250 mg tablet Take 500 mg by mouth once daily as needed (pain). Patient should start on March 20, 2024. 03/20/2024 Active Start: 12-28-2020 End: 02-04-2023 take 1 tablet by mouth once daily Naproxen (Naprosyn) 500 mg Tablet Discontinued 500 mg PO DAILY December 28, 2020 12:00am February 04, 2023 8:54am naproxen (NAPROS YN) 250 mg tablet Take 500 mg by mouth once daily as needed. Active [place] (Nk) (3 sources) Start: 02-04-2023 [place] (Nk) A ctive February 03, 2023 11:00pm Start: 02-04-2023 [place] (Nk) A ctive February 04, 2023 12:00am predniSONE 20 mg oral tablet (1 source) Start: 01-18-2022 End: 01-23-2022 predniSONE 20 mg oral tablet Dose : 20 mg = 1 tab(s), Oral, qDayM, X 5 day(s), # 5 tab(s), 0 Refill(s), 01/23/22 13:57:00 EDT, Pharmacy: [facility]/pharmacy #[id number], 172.7, cm, 01/17/22 15:32:00 EDT, Height Start Date: 01/18/22 Stop Date: 01/23/22 Status: Ordered sennosides, detention 8.6 mg oral tablet (10 sources) Start: 03-19-2024 End: 03-26-2024 take 1 tablet by mouth every twelve hours as needed senna (SENOKOT) 8.6 mg tab Take 1 tablet by mouth two times a day as needed for constipation for up to 7 days. 14 tablet 03/19/2024 03/26/2024 Active Completed/Discontinued Medications Medication Drug Class(es) Dates Sig (Normalized) Sig (Original) amoxicillin 875 mg / clavulanate 125 mg oral tablet (4 sources) Penicillin-class Antibacterial Start: 10-16-2022 End: 10-30-2022 Amoxicillin-Pot Clavulanate 875-125 mg tablet Discontinued 1 {tbl} PO TWICE A DAY October 16, 2022 12:00am October 30, 2022 9:19am Start: 10-16-2022 End: 10-30-2022 take 1 tablet by mouth twice daily Amoxicillin-Pot Clavulanate Discontinued 1 TABLET PO TWICE A DAY October 15, 2022 11:00pm October 30, 2022 8:19am doxycycline monohydrate 100 mg oral capsule (4 sources) Tetracycline-class Drug Start: 02-04-2023 End: 03-26-2023 take 1 capsule by mouth twice daily Doxycycline Monohydrate 100 mg capsule Discontinued 100 mg PO TWICE A DAY February 04, 2023 9:27am March 26, 2023 9:46am oxyCODONE hydrochloride 5 mg oral tablet (10 sources) Opioid Agonist Start: 03-19-2024 End: 03-24-2024 take 1 tablet by mouth every six hours as needed for pain oxyCODONE IR (ROXICODONE) 5 mg immediate release tablet Indications: Closed fracture of left tibia and fibula, initial encounter Take 1 tablet by mouth every 6 hours as needed for pain for up to 5 days. 20 tablet 03/19/2024 03/24/2024 Problems Active Problems Problem Classification Problem Date Documented Da te Episodic/Chronic Abdominal pain (9 sources) Acute abdominal pain; Translations: [Right upper quadrant pain] 01-25-2022 Episodic Chronic obstructive pulmonary disease and bronchiectasis (5 sources) Chronic obstructive lung disease; Translations: [Chronic obstructive pulmonary disease, unspecified] 05-15-2022 Chronic Diseases of white blood cells (1 source) Leukocytosis; Translations: [Elevated white blood cell count, unspecified] Onset: 01-17-2022 Chronic Fracture of lower limb (20 sources) Fracture of tibia; Translations: [Other fracture of shaft of left tibia, initial encounter for closed fracture] Onset: 03-11-2024 Resolved: 03-19-2024 03-19-2024 Episodic Comment on above: left-surgical repair Open wounds of extremities (9 sources) Laceration of thumb; Translations: [Laceration without foreign body of unspecified thumb without damage to nail, initial encounter] 12-28-2020 Episodic Other injuries and conditions due to external causes (1 source) Traumatic AND/OR non-traumatic injury; Translations: [Other injury of unspecified body region, initial encounter] Onset: 01-17-2022 Episodic Other nutritional; endocrine; and metabolic disorders (20 sources) Obese class I; Translations: [Obesity, Class I, BMI 30-34.9] Onset: 03-17-2024 03-19-2024 Chronic Other skin disorders (4 sources) Infection of sebaceous cyst; Translations: [Sebaceous cyst] 10-16-2022 Episodic Other skin disorders (4 sources) Sebaceous cyst; Translations: [Sebaceous cyst] 10-16-2022 Episodic Pleurisy; pneumothorax; pulmonary collapse (9 sources) Atelectasis; Translations: [Atelectasis] 01-25-2022 Episodic Residual codes; unclassified (1 source) Pain; Translations: [Pain, unspecified] Onset: 01-18-2022 Episodic Skin and subcutaneous tissue infections (7 sources) Abscess; Translations: [Cutaneous abscess, unspecified] 02-04-2023 Episodic Substance-related disorders (6 sources) Nicotine dependence; Translations: [Nicotine dependence, unspecified, uncomplicated] Onset: 01-17-2022 Chronic Comment on above: LDCT February 26, 2024 Superficial injury; contusion (1 source) Abrasion, left lower leg, initial encounter; Translations: [Abrasion of left leg] 03-11-2024 Episodic Unclassified (1 source) Rm 12 Onset: 03-11-2024 Past or Other Problems Problem Classification Problem Date Documented Da te Episodic/Chronic Other injuries and conditions due to external causes (1 source) Unspecified injury of left lower leg, initial encounter; Translations: [Unspecified injury of left lower leg, initial encounter] Onset: 04-02-2024 Episodic Other screening for suspected conditions (not mental disorders or infectious disease) (10 sources) Patient encounter status; Translations: [Encounter for screening for malignant neoplasm of intestinal tract, unspecified] Onset: 03-19-2024 05-27-2019 Episodic Screening and history of mental health and substance abuse codes (20 sources) Ex-smoker; Translations: [Personal history of nicotine dependence] Onset: 03-12-2024 03-19-2024 Episodic Results Test Name Value Interpretation Reference Range Facility Urgent Care Visit Reporton 0 10-10-2024 Urgent Care Visit Report [facility] [address], [address] [place] [address] OFFICE VISIT Date of Service: 10/10/24 MR#: [id number] Acct: [id number] Name: RICHARD HEAD Rep #: [id number] : 1965 Provider: AKUA Gipson Age/Sex: 58/M Location[place] [facility] Status: Signed Intake Vital Signs 06/03/24 08:15 10/10/24 06:24 Height 5 ft 8 in Weight: 205 lb BMI 31.1 BP 138/76 H 126/80 H Blood Pressure Location Lt brachial Position Sitting Sitting Respiration 16 Pulse 65 67 Pulse Source Monitor Temp 97.4 F L 98.6 F Temp Source Oral Pulse Oximetry (%) 97 98 Oxygen Delivery Method room air room air Intake Visit Reasons: COUGH, SORE THROAT Accompanied by: Self Allergies No Known Allergies Allergy (Verified 10/10/24 06:24) Medications ???Medication ???Instructions ???Recorded ???Confirmed ???Type acetaminophen 500 mg tablet 500 mg PO Q6H PRN 06/03/24 5 History (Tylenol Extra Strength) albuterol 90 mcg/actuation aerosol mcg inhalation 06/03/24 10/10/24 History inhaler naproxen 250 mg tablet 250 mg PO BID PRN 06/03/24 5 History fluticasone fur. 100 mcg-umeclid 1 inh inhalation Q24H #60 ea 06/2710/10/24 Rx 62.5 mcg-vilant 25 mcg inhalat.powder (Trelegy Ellipta) amoxicillin 875 mg-potassium 1 tab PO Q12H 10 days #20 tabs 10/10/24 Rx clavulanate 125 mg tablet ipratropium bromide 21 mcg (0.03 2 spray intranasal BID-TID PRN 10/10/24 Rx %) nasal spray postnasal drainage #30 mL Nurse's Note: Patient has cough,ST and sinus congestion that have been going on for a week but getting worse. Patient states that his discharge is yellow. [facility] Medical History Arthritis Hernia Infected sebaceous cyst of skin Social History Smoking Status: Former smoker Tobacco: How many years used: 40 HPI HPI Details: RICHARD HEAD, is a 58 M who presents to the office today for complaint of sinus congestion/pressure and as well as drainage and cough for the past week. Patient states his throat is become increasingly sore over this time as well. He denies fever, chills or sweats. No hemoptysis, shortness of breath or difficulty breathing. No loss of taste or smell. No other associated symptoms or alleviating/aggravati ng factors. ROS Const Constitutional: No other (as above) Exam Const General: cooperative and healthy appearing HENMT Head: normal to inspection Ears: hearing grossly normal bilaterally, TM's normal bilaterally and EAC's normal Nose: nasal discharge purulent Face and sinus: sinus tenderness frontal and maxillary Mouth: oral mucosae normal Throat: abnormal tonsil bilaterally erythema and hypertrophy 1+ and postnasal drainage Resp Effort Inspection: normal respiratory effort Auscultation: Bilateral: Clear to Auscultation Cardio Rate: regular rate Rhythm: regular rhythm Neuro General: patient alert Psych Appearance: grossly normal Mental Status: mental status grossly normal Results POC Vandana Rapid Strep POC Vandana Rapid Strep Negative Last Edit by Fior Vital MA on 10/10/24 06:47 Coding Level of Care Code Off vis,new,level 3 Diagnoses Acute sinusitis J01.90 Assessment and Plan Assessment and Plan (1) Acute sinusitis: Status: Acute Orders: Orders POC Vandana Rapid Strep A Today Medications: New amoxicillin-pot clavulanate 875-125 mg 1 TAB PO Q12H 20 tabs 0RF 10 days J01.90 - Acute sinusitis, unspecified ipratropium bromide administer into each nostril 2 sprays intranasal BID-TID PRN 30 mL 0RF postnasal drainage Plan Patient tested negative for strep in the office today. Augmentin as prescribed today. Encouraged to get plenty of rest, drink lots of clear liquids, and use Tylenol or Ibuprofen (unless contraindicated) for fever and comfort. Patient also educated on other symptomatic management techniques. To be seen in 7-10 days if no improvement; sooner if worsening of symptoms. Patient advised of potential red flags and when appropriate to report to the ED. Patient verbalized understanding and agreement with all the above. 10/10/24 0658 Date Moises Peralta Signature: Date (if applicable) CC: Normal [facility] CNTHERAPYon 08-18-2024 CNTHERAPY OT/PT/Speech Visit (PTWS) RICHARD HEAD ([id number]) 1965 M Date Time Provider Department 08/18/24 9:30 AM JENNY SCHMIDT PTHEIDI Date Time Provider Department Center 08/18/2024 9:30 AM [id number], MARIAH PTWS [facility] Reason for Visit: Physical Therapy [503] Primary Visit Diagnosis:Status post surgery [Z98.890] Allergies As of Date: 08/18/2024 (No Known Allergies) Date Reviewed: 06/23/2024 Reviewed by: Carisa Burch MD - Fully Assessed Prescriptions as of 08/21/2024 - cholecalciferol, vitamin D3, (VITAMIN D3 ORAL) Take 1 tablet by mouth once daily. - MULTIVITAMIN ORAL Take 1 tablet by mouth once daily. - aspirin, enteric coated (ASPIRIN, ENTERIC COATED) 81 mg EC tablet Take 1 tablet by mouth two times a day for 14 days. ONCE TWO TIMES A DAY DOSING COMPLETED, THEN OKAY TO RESUME DAILY HOME DOSE - aspirin, enteric coated (ASPIRIN, ENTERIC COATED) 81 mg EC tablet Take 81 mg by mouth once daily. - naproxen (NAPROSYN) 250 mg tablet Take 500 mg by mouth once daily as needed (pain). Patient should start on March 20, 2024. - docosahexaenoic acid/epa (FISH OIL ORAL) Take 2 tablets by mouth once daily. [facility]PT/Speech Visit (PTWS) RICHARD HEAD ([id number]) 1965 M Date Time Provider Department 08/11/24 10:45 AM SKYLER FOREMAN PTHEIDI Date Time Provider Department [place] 08/11/2024 10:45 AM [id number], COREY PTHEIDI Larsen Reason for Visit: Physical Therapy [503] Primary Visit Diagnosis:Status post surgery [Z98.890] Allergies As of Date: 08/11/2024 (No Known Allergies) Date Reviewed: 06/23/2024 Reviewed by: Carisa Burch MD - Fully Assessed Prescriptions as of 08/11/2024 - cholecalciferol, vitamin D3, (VITAMIN D3 ORAL) Take 1 tablet by mouth once daily. - MULTIVITAMIN ORAL Take 1 tablet by mouth once daily. - aspirin, enteric coated (ASPIRIN, ENTERIC COATED) 81 mg EC tablet Take 1 tablet by mouth two times a day for 14 days. ONCE TWO TIMES A DAY DOSING COMPLETED, THEN OKAY TO RESUME DAILY HOME DOSE - aspirin, enteric coated (ASPIRIN, ENTERIC COATED) 81 mg EC tablet Take 81 mg by mouth once daily. - naproxen (NAPROSYN) 250 mg tablet Take 500 mg by mouth once daily as needed (pain). Patient should start on March 20, 2024. - docosahexaenoic acid/epa (FISH OIL ORAL) Take 2 tablets by mouth once daily. [facility]/PT/Speech Visit (PTWS) RICHARD HEAD ([id number]) 1965 M Date Time Provider Department 08/04/24 9:15 AM SKYLER FOREMAN PTWS Date Time Provider Department [place] 08/04/2024 9:15 AM [id number], COREY PTWS Vishnu Larsen Reason for Visit: PT Progress Note [1596] Primary Visit Diagnosis:Status post surgery [Z98.890] Allergies As of Date: 08/04/2024 (No Known Allergies) Date Reviewed: 06/23/2024 Reviewed by: Carisa Burch MD - Fully Assessed Prescriptions as of 08/04/2024 - cholecalciferol, vitamin D3, (VITAMIN D3 ORAL) Take 1 tablet by mouth once daily. - MULTIVITAMIN ORAL Take 1 tablet by mouth once daily. - aspirin, enteric coated (ASPIRIN, ENTERIC COATED) 81 mg EC tablet Take 1 tablet by mouth two times a day for 14 days. ONCE TWO TIMES A DAY DOSING COMPLETED, THEN OKAY TO RESUME DAILY HOME DOSE - aspirin, enteric coated (ASPIRIN, ENTERIC COATED) 81 mg EC tablet Take 81 mg by mouth once daily. - naproxen (NAPROSYN) 250 mg tablet Take 500 mg by mouth once daily as needed (pain). Patient should start on March 20, 2024. - docosahexaenoic acid/epa (FISH OIL ORAL) Take 2 tablets by mouth once daily. Normal [facility] CNTHERAPYon 07-31-2024 CNTHERAPY OT/PT/Speech Visit (PTWS) RICHARD HEAD ([id number]) 1965 M Date Time Provider Department 07/31/24 10:00 AM SKYLER FOREMAN PTWS Date Time Provider Department Center 07/31/2024 10:00 AM [id number], COREY PTHEIDI Larsen Reason for Visit: Physical Therapy [503] Primary Visit Diagnosis:Status post surgery [Z98.890] Allergies As of Date: 07/31/2024 (No Known Allergies) Date Reviewed: 06/23/2024 Reviewed by: Carisa Burch MD - Fully Assessed Prescriptions as of 07/31/2024 - cholecalciferol, vitamin D3, (VITAMIN D3 ORAL) Take 1 tablet by mouth once daily. - MULTIVITAMIN ORAL Take 1 tablet by mouth once daily. - aspirin, enteric coated (ASPIRIN, ENTERIC COATED) 81 mg EC tablet Take 1 tablet by mouth two times a day for 14 days. ONCE TWO TIMES A DAY DOSING COMPLETED, THEN OKAY TO RESUME DAILY HOME DOSE - aspirin, enteric coated (ASPIRIN, ENTERIC COATED) 81 mg EC tablet Take 81 mg by mouth once daily. - naproxen (NAPROSYN) 250 mg tablet Take 500 mg by mouth once daily as needed (pain). Patient should start on March 20, 2024. - docosahexaenoic acid/epa (FISH OIL ORAL) Take 2 tablets by mouth once daily. Normal [facility] CNTHERAPYon 07-28-2024 CNTHERAPY OT/PT/Speech Visit (PTWS) RICHARD HEAD ([id number]) 1965 M Date Time Provider Department 07/28/24 9:30 AM JENNY SCHMIDT PTWS Date Time Provider Department Center 07/28/2024 9:30 AM [id number] Reason for Visit: Physical Therapy [503] Primary Visit Diagnosis:Status post surgery [Z98.890] Allergies As of Date: 07/28/2024 (No Known Allergies) Date Reviewed: 06/23/2024 Reviewed by: Carisa Burch MD - Fully Assessed Prescriptions as of 07/28/2024 - cholecalciferol, vitamin D3, (VITAMIN D3 ORAL) Take 1 tablet by mouth once daily. - MULTIVITAMIN ORAL Take 1 tablet by mouth once daily. - aspirin, enteric coated (ASPIRIN, ENTERIC COATED) 81 mg EC tablet Take 1 tablet by mouth two times a day for 14 days. ONCE TWO TIMES A DAY DOSING COMPLETED, THEN OKAY TO RESUME DAILY HOME DOSE - aspirin, enteric coated (ASPIRIN, ENTERIC COATED) 81 mg EC tablet Take 81 mg by mouth once daily. - naproxen (NAPROSYN) 250 mg tablet Take 500 mg by mouth once daily as needed (pain). Patient should start on March 20, 2024. - docosahexaenoic acid/epa (FISH OIL ORAL) Take 2 tablets by mouth once daily. [facility] CNTHERAPYon 07-24-2024 CNTHERAPY OT/PT/Speech Visit (PTWS) RICHARD HEAD ([id number]) 1965 M Date Time Provider Department 07/24/24 10:00 AM SKYLER FOREMAN PTWS Date Time Provider Department [place] 07/24/2024 10:00 AM [id number], COREY PTWS Vishnu Larsen Reason for Visit: Physical Therapy [503] Primary Visit Diagnosis:Status post surgery [Z98.890] Allergies As of Date: 07/24/2024 (No Known Allergies) Date Reviewed: 06/23/2024 Reviewed by: Carisa Bruch MD - Fully Assessed Prescriptions as of 07/24/2024 - cholecalciferol, vitamin D3, (VITAMIN D3 ORAL) Take 1 tablet by mouth once daily. - MULTIVITAMIN ORAL Take 1 tablet by mouth once daily. - aspirin, enteric coated (ASPIRIN, ENTERIC COATED) 81 mg EC tablet Take 1 tablet by mouth two times a day for 14 days. ONCE TWO TIMES A DAY DOSING COMPLETED, THEN OKAY TO RESUME DAILY HOME DOSE - aspirin, enteric coated (ASPIRIN, ENTERIC COATED) 81 mg EC tablet Take 81 mg by mouth once daily. - naproxen (NAPROSYN) 250 mg tablet Take 500 mg by mouth once daily as needed (pain). Patient should start on March 20, 2024. - docosahexaenoic acid/epa (FISH OIL ORAL) Take 2 tablets by mouth once daily. [facility] CNTHERAPYon 07-21-2024 CNTHERAPY OT/PT/Speech Visit (PTWS) RICHARD HEAD ([id number]) 1965 M Date Time Provider Department 07/21/24 9:15 AM SKYLER FOREMAN PTWS Date Time Provider Department [place] 07/21/2024 9:15 AM [id number], COREY PTWS Vishnu Larsen Reason for Visit: Physical Therapy [503] Primary Visit Diagnosis:Status post surgery [Z98.890] Allergies As of Date: 07/21/2024 (No Known Allergies) Date Reviewed: 06/23/2024 Reviewed by: Carisa Burch MD - Fully Assessed Prescriptions as of 07/21/2024 - cholecalciferol, vitamin D3, (VITAMIN D3 ORAL) Take 1 tablet by mouth once daily. - MULTIVITAMIN ORAL Take 1 tablet by mouth once daily. - aspirin, enteric coated (ASPIRIN, ENTERIC COATED) 81 mg EC tablet Take 1 tablet by mouth two times a day for 14 days. ONCE TWO TIMES A DAY DOSING COMPLETED, THEN OKAY TO RESUME DAILY HOME DOSE - aspirin, enteric coated (ASPIRIN, ENTERIC COATED) 81 mg EC tablet Take 81 mg by mouth once daily. - naproxen (NAPROSYN) 250 mg tablet Take 500 mg by mouth once daily as needed (pain). Patient should start on March 20, 2024. - docosahexaenoic acid/epa (FISH OIL ORAL) Take 2 tablets by mouth once daily. [facility]PT/Speech Visit (PTWS) RICHARD HEAD ([id number]) 1965 M Date Time Provider Department 07/17/24 10:00 AM SKYLER FOREMAN PTHEIDI Date Time Provider Department [place] 07/17/2024 10:00 AM [id number], COREY PTHEIDI Larsen Reason for Visit: Physical Therapy [503] Primary Visit Diagnosis:Status post surgery [Z98.890] Allergies As of Date: 07/17/2024 (No Known Allergies) Date Reviewed: 06/23/2024 Reviewed by: Carisa Burch MD - Fully Assessed Prescriptions as of 07/17/2024 - cholecalciferol, vitamin D3, (VITAMIN D3 ORAL) Take 1 tablet by mouth once daily. - MULTIVITAMIN ORAL Take 1 tablet by mouth once daily. - aspirin, enteric coated (ASPIRIN, ENTERIC COATED) 81 mg EC tablet Take 1 tablet by mouth two times a day for 14 days. ONCE TWO TIMES A DAY DOSING COMPLETED, THEN OKAY TO RESUME DAILY HOME DOSE - aspirin, enteric coated (ASPIRIN, ENTERIC COATED) 81 mg EC tablet Take 81 mg by mouth once daily. - naproxen (NAPROSYN) 250 mg tablet Take 500 mg by mouth once daily as needed (pain). Patient should start on March 20, 2024. - docosahexaenoic acid/epa (FISH OIL ORAL) Take 2 tablets by mouth once daily. [facility] OT/PT/Speech Visit (PTWS) RICHARD HEAD ([id number]) 1965 M Date Time Provider Department 07/15/24 8:45 AM JENNY SCHMIDT PTWS Date Time Provider Department Center 07/15/2024 8:45 AM [id number], MARIAH PTHEIDI Larsen Reason for Visit: Physical Therapy [503] Primary Visit Diagnosis:Status post surgery [Z98.890] Allergies As of Date: 07/15/2024 (No Known Allergies) Date Reviewed: 06/23/2024 Reviewed by: Carisa Burch MD - Fully Assessed Prescriptions as of 07/15/2024 - cholecalciferol, vitamin D3, (VITAMIN D3 ORAL) Take 1 tablet by mouth once daily. - MULTIVITAMIN ORAL Take 1 tablet by mouth once daily. - aspirin, enteric coated (ASPIRIN, ENTERIC COATED) 81 mg EC tablet Take 1 tablet by mouth two times a day for 14 days. ONCE TWO TIMES A DAY DOSING COMPLETED, THEN OKAY TO RESUME DAILY HOME DOSE - aspirin, enteric coated (ASPIRIN, ENTERIC COATED) 81 mg EC tablet Take 81 mg by mouth once daily. - naproxen (NAPROSYN) 250 mg tablet Take 500 mg by mouth once daily as needed (pain). Patient should start on March 20, 2024. - docosahexaenoic acid/epa (FISH OIL ORAL) Take 2 tablets by mouth once daily. [facility] CNTHERAPYon 07-08-2024 CNTHERAPY OT/PT/Speech Visit (PTWS) RICHARD HEAD ([id number]) 1965 M Date Time Provider Department 07/08/24 3:45 PM SKYLER FOREMAN PTWS Date Time Provider Department Center 07/08/2024 3:45 PM [id number] [id number] Reason for Visit: Physical Therapy [503] Primary Visit Diagnosis:Status post surgery [Z98.890] Allergies As of Date: 07/08/2024 (No Known Allergies) Date Reviewed: 06/23/2024 Reviewed by: Carisa Burch MD - Fully Assessed Prescriptions as of 07/08/2024 - cholecalciferol, vitamin D3, (VITAMIN D3 ORAL) Take 1 tablet by mouth once daily. - MULTIVITAMIN ORAL Take 1 tablet by mouth once daily. - aspirin, enteric coated (ASPIRIN, ENTERIC COATED) 81 mg EC tablet Take 1 tablet by mouth two times a day for 14 days. ONCE TWO TIMES A DAY DOSING COMPLETED, THEN OKAY TO RESUME DAILY HOME DOSE - aspirin, enteric coated (ASPIRIN, ENTERIC COATED) 81 mg EC tablet Take 81 mg by mouth once daily. - naproxen (NAPROSYN) 250 mg tablet Take 500 mg by mouth once daily as needed (pain). Patient should start on March 20, 2024. - docosahexaenoic acid/epa (FISH OIL ORAL) Take 2 tablets by mouth once daily. [facility] CNTHERAPYon 06-27-2024 CNTHERAPY OT/PT/Speech Visit (PTWS) RICHARD HEAD ([id number]) 1965 M Date Time Provider Department 06/27/24 9:30 AM SKYLER FOREMAN Date Time Provider Department Center 06/27/2024 9:30 AM [id number] JASON Reason for Visit: Physical Therapy [503] Primary Visit Diagnosis:Status post surgery [Z98.890] Allergies As of Date: 06/27/2024 (No Known Allergies) Date Reviewed: 06/23/2024 Reviewed by: Carisa Burch MD - Fully Assessed Prescriptions as of 06/27/2024 - cholecalciferol, vitamin D3, (VITAMIN D3 ORAL) Take 1 tablet by mouth once daily. - MULTIVITAMIN ORAL Take 1 tablet by mouth once daily. - aspirin, enteric coated (ASPIRIN, ENTERIC COATED) 81 mg EC tablet Take 1 tablet by mouth two times a day for 14 days. ONCE TWO TIMES A DAY DOSING COMPLETED, THEN OKAY TO RESUME DAILY HOME DOSE - aspirin, enteric coated (ASPIRIN, ENTERIC COATED) 81 mg EC tablet Take 81 mg by mouth once daily. - naproxen (NAPROSYN) 250 mg tablet Take 500 mg by mouth once daily as needed (pain). Patient should start on March 20, 2024. - docosahexaenoic acid/epa (FISH OIL ORAL) Take 2 tablets by mouth once daily. [facility] CNTHERAPYon 06-24-2024 CNTHERAPY OT/PT/Speech Visit (PTWS) RICHARD HEAD ([id number]) 1965 M Date Time Provider Department 06/24/24 9:30 AM SKYLER FOREMAN PTWS Date Time Provider Department Center 06/24/2024 9:30 AM [id number], COREY PTWS Vishnu Larsen Reason for Visit: Physical Therapy [503] Primary Visit Diagnosis:Status post surgery [Z98.890] Allergies As of Date: 06/24/2024 (No Known Allergies) Date Reviewed: 06/23/2024 Reviewed by: Carisa Burch MD - Fully Assessed Prescriptions as of 06/24/2024 - cholecalciferol, vitamin D3, (VITAMIN D3 ORAL) Take 1 tablet by mouth once daily. - MULTIVITAMIN ORAL Take 1 tablet by mouth once daily. - aspirin, enteric coated (ASPIRIN, ENTERIC COATED) 81 mg EC tablet Take 1 tablet by mouth two times a day for 14 days. ONCE TWO TIMES A DAY DOSING COMPLETED, THEN OKAY TO RESUME DAILY HOME DOSE - aspirin, enteric coated (ASPIRIN, ENTERIC COATED) 81 mg EC tablet Take 81 mg by mouth once daily. - naproxen (NAPROSYN) 250 mg tablet Take 500 mg by mouth once daily as needed (pain). Patient should start on March 20, 2024. - docosahexaenoic acid/epa (FISH OIL ORAL) Take 2 tablets by mouth once daily. [facility] CNOVon 06-23-2024 CNOV Office Visit (AGPOB1 ) RICHARD HEAD ([id number]) 1965 M Date Time Provider Department 06/23/24 10:15 AM CARISA BURCH AGPOB1 During your visit today, we recorded the following information about you: Respiration Weight Height 20/minute 94.8 kg 1.727 m Carisa Burch MD 06/23/2024 11:18 AM Signed ORTHOPAEDIC SURGERY OFFICE NOTE: SURGERY DATE: 1) 03/12/2024 SURGERY: 1) Insertion of a Left Intramedullary Tibial Nail for a Segmental Left Tibial Shaft Fracture CHIEF COMPLAINT: Routine Post-Operative Follow-Up HISTORY OF PRESENT ILLNESS: Richard Head is a 58 year old male who presents for routine post-operative follow-up from the above listed operation (see Surgery above for full details). At today's appointment, the patient reports doing relatively well. The patient endorses controlled pain to the left lower leg. The patient is ambulatory with gait aids. The patient denies fevers and chills. The patient has no additional orthopaedic traumatic complaints at this time. Reviewed nursing note and current pain scale. History reviewed. No pertinent past medical history. History reviewed. No pertinent surgical history. History reviewed. No pertinent family history. Social History Tobacco Use Smoking status: Never Smokeless tobacco: Never Substance Use Topics Alcohol use: Never Drug use: Never MEDICATIONS: Current Outpatient Medications Medication Sig cholecalciferol, vitamin D3, (VITAMIN D3 ORAL) Take 1 tablet by mouth once daily. MULTIVITAMIN ORAL Take 1 tablet by mouth once daily. aspirin, enteric coated (ASPIRIN, ENTERIC COATED) 81 mg EC tablet Take 1 tablet by mouth two times a day for 14 days. ONCE TWO TIMES A DAY DOSING COMPLETED, THEN OKAY TO RESUME DAILY HOME DOSE aspirin, enteric coated (ASPIRIN, ENTERIC COATED) 81 mg EC tablet Take 81 mg by mouth once daily. naproxen (NAPROSYN) 250 mg tablet Take 500 mg by mouth once daily as needed (pain). Patient should start on March 20, 2024. docosahexaenoic acid/epa (FISH OIL ORAL) Take 2 tablets by mouth once daily. No current facility-administered medications for this visit. ALLERGIES: ALLERGIES No Known Allergies PHYSICAL EXAMINATION: Resp 20 Ht 5' 8 (1.73m) Wt 209 lb (94.8kg) BMI 31.79 kg/(m2). General Appearance: No acute distress Skin: See Extremity exam below for full details Left Lower Extremity: Healed surgical incisions to the left lower leg. There is no shannan-incisional erythema nor drainage. Compartments of the thigh and leg are soft and compressible. The patient has active knee flexion, knee extension, ankle dorsiflexion, ankle plantarflexion and extensor hallucis longus motor function. Sensation intact to light touch in the sural, saphenous, superficial peroneal, deep peroneal and tibial nerve distributions. Brisk capillary refill to the digits of the foot. IMAGES: Recent Results (from the past 36 hour(s)) XR TIBIA FIBULA 2V AP/LAT LEFT Narrative 2-view left tibia/fibula radiographs demonstrate maintained length, alignment and rotation of the segmental tibia fracture with intact orthopaedic implants. ASSESSMENT AND PLAN: 1. Closed complex fracture of left tibia with routine healing, subsequent encounter - ICD9: V54.16, ICD10: S82.292D -2-view left tibia/fibula x-rays ordered, obtained and independently interpreted (see image interpretation above for full details) -Weight-bearing as tolerated with the left lower extremity with ambulation assistance devices as needed -Pain control with NSAIDs and acetaminophen as needed -Ice and elevation of the left lower extremity for pain control and swelling reduction -Physical therapy/home exercises for continued rehabilitation -The patient will be extended off-work for an additional 2 months -The patient will follow-up in 6 months or sooner if needed OARRS reviewed All patient and family questions and concerns were answered and addressed The above reflects an independent exam and review. The patient was personally seen and examined. Part of the HPI, ROS, exam and impression may have been copied from personal previous clinical notes and remains pertinent. Current changes have been made and documented today. Other parts or data were deleted if not relevant for today. Plan as outlined. Carisa Burch MD Orthopaedic Trauma Surgery 06/23/2024 11:16 AM Allergies As of Date: 06/23/2024 (No Known Allergies) Date Reviewed: 06/23/2024 Reviewed by: Carisa Burch MD - Fully Assessed Reason for Visit: Established Patient [175] Follow Up [171] Pain [78] Swelling [205] Primary Visit Diagnosis:Closed complex fracture of left tibia with routine healing, subsequent encounter [T79.505B] Order(s):XR TIBIA FIBULA 2V AP/LAT LEFT [1620665] Order #: [id number] Prescriptions as of 06/23/2024 - cholecalciferol, vitamin D3, (VITAMIN D3 O (more content not included)... [facility] XR Tibia and Fibula - left A P and Lateralon 06-23-2024 2-view left tibia/fibula radiographs demonstrate maintained length, alignment and rotation of the segmental tibia fracture with intact orthopaedic implants. [facility] RADIOLOGY [facility] Radiology Study observation (narrative) Cindy rai [facility] CNTHERAPYon 06-20-2024 CNTHERAPY OT/PT/Speech Visit (PTWS) RICHARD HEAD ([id number]) 1965 M Date Time Provider Department 06/20/24 10:15 AM SKYLER FOREMNA PTWS Date Time Provider Department Center 06/20/2024 10:15 AM [id number], COREY PTWS Vishnu Larsen Reason for Visit: Physical Therapy [503] Primary Visit Diagnosis:Status post surgery [Z98.890] Allergies As of Date: 06/20/2024 (No Known Allergies) Date Reviewed: 04/10/2024 Reviewed by: Betty Barksdale, PT - Fully Assessed Prescriptions as of 06/20/2024 - cholecalciferol, vitamin D3, (VITAMIN D3 ORAL) Take 1 tablet by mouth once daily. - MULTIVITAMIN ORAL Take 1 tablet by mouth once daily. - aspirin, enteric coated (ASPIRIN, ENTERIC COATED) 81 mg EC tablet Take 1 tablet by mouth two times a day for 14 days. ONCE TWO TIMES A DAY DOSING COMPLETED, THEN OKAY TO RESUME DAILY HOME DOSE - aspirin, enteric coated (ASPIRIN, ENTERIC COATED) 81 mg EC tablet Take 81 mg by mouth once daily. - naproxen (NAPROSYN) 250 mg tablet Take 500 mg by mouth once daily as needed (pain). Patient should start on March 20, 2024. - docosahexaenoic acid/epa (FISH OIL ORAL) Take 2 tablets by mouth once daily. [facility] CNTHERAPYon 06-17-2024 CNTHERAPY OT/PT/Speech Visit (PTWS) RICHARD HEAD ([id number]) 1965 M Date Time Provider Department 06/17/24 9:30 AM SKYLER FOREMAN Date Time Provider Department [place] 06/17/2024 9:30 AM [id number], COREY PTHEIDI Larsen Reason for Visit: Physical Therapy [503] Primary Visit Diagnosis:Status post surgery [Z98.890] Allergies As of Date: 06/17/2024 (No Known Allergies) Date Reviewed: 04/10/2024 Reviewed by: Betty Barksdale PT - Fully Assessed Prescriptions as of 06/17/2024 - cholecalciferol, vitamin D3, (VITAMIN D3 ORAL) Take 1 tablet by mouth once daily. - MULTIVITAMIN ORAL Take 1 tablet by mouth once daily. - aspirin, enteric coated (ASPIRIN, ENTERIC COATED) 81 mg EC tablet Take 1 tablet by mouth two times a day for 14 days. ONCE TWO TIMES A DAY DOSING COMPLETED, THEN OKAY TO RESUME DAILY HOME DOSE - aspirin, enteric coated (ASPIRIN, ENTERIC COATED) 81 mg EC tablet Take 81 mg by mouth once daily. - naproxen (NAPROSYN) 250 mg tablet Take 500 mg by mouth once daily as needed (pain). Patient should start on March 20, 2024. - docosahexaenoic acid/epa (FISH OIL ORAL) Take 2 tablets by mouth once daily. Project Estimator: Therapy (PT/OT/Speech/Resp) ID: [id number] 06/17/2024 9:55 AM Author: SKYLER FOREMAN Signed by SKYLER FOREMAN PT on 06/17/2024 at 9:55 AM Document text: Program_ID:[id number] Access Code: [email or web address] URL: [email or web address] Date: 06-17-2024 Prepared By: Skyler Foreman Program Notes Exercises - Active Straight Leg Raise with Quad Set - 1 x daily - 7 x weekly - 4 sets - 20 reps - Standing Ankle Dorsiflexion Stretch on Chair - 1 x daily - 7 x weekly - 4 sets - 10 reps - Sidelying Hip Abduction - 1 x daily - 7 x weekly - 4 sets - 20 reps - Clamshell with Resistance - 1 x daily - 7 x weekly - 4 sets - 12 reps - Squat with Chair Touch - 1 x daily - 7 x weekly - 4 sets - 20 reps - Step Up - 1 x daily - 7 x weekly - 4 sets - 20 reps ----- [facility] THERAPY NTon 06-17-2024 THERAPY NT HNO ID: [id number] Author: SKYLER FOREMAN PT Service: ? Author Type: Physical Therapist Type: Therapy (PT/OT/Speech/Resp) Filed: 06/17/2024 09:55 Note Text: Program_ID:[id number] Access Code: [email or web address] URL: [email or web address] Date: 06-17-2024 Prepared By: Skyler Foreman Program Notes Exercises - Active Straight Leg Raise with Quad Set - 1 x daily - 7 x weekly - 4 sets - 20 reps - Standing Ankle Dorsiflexion Stretch on Chair - 1 x daily - 7 x weekly - 4 sets - 10 reps - Sidelying Hip Abduction - 1 x daily - 7 x weekly - 4 sets - 20 reps - Clamshell with Resistance - 1 x daily - 7 x weekly - 4 sets - 12 reps - Squat with Chair Touch - 1 x daily - 7 x weekly - 4 sets - 20 reps - Step Up - 1 x daily - 7 x weekly - 4 sets - 20 reps [facility] CNTHERAPYon 06-13-2024 CNTHERAPY OT/PT/Speech Visit (PTWS) RICHARD HEAD ([id number]) 1965 M Date Time Provider Department 06/13/24 11:00 AM SKYLER FOREMAN PTHEIDI Date Time Provider Department [place] 06/13/2024 11:00 AM [id number], COREY PTHEIDI Larsen Reason for Visit: Physical Therapy [503] Primary Visit Diagnosis:Status post surgery [Z98.890] Allergies As of Date: 06/13/2024 (No Known Allergies) Date Reviewed: 04/10/2024 Reviewed by: Betty Barksdale PT - Fully Assessed Prescriptions as of 06/13/2024 - cholecalciferol, vitamin D3, (VITAMIN D3 ORAL) Take 1 tablet by mouth once daily. - MULTIVITAMIN ORAL Take 1 tablet by mouth once daily. - aspirin, enteric coated (ASPIRIN, ENTERIC COATED) 81 mg EC tablet Take 1 tablet by mouth two times a day for 14 days. ONCE TWO TIMES A DAY DOSING COMPLETED, THEN OKAY TO RESUME DAILY HOME DOSE - aspirin, enteric coated (ASPIRIN, ENTERIC COATED) 81 mg EC tablet Take 81 mg by mouth once daily. - naproxen (NAPROSYN) 250 mg tablet Take 500 mg by mouth once daily as needed (pain). Patient should start on March 20, 2024. - docosahexaenoic acid/epa (FISH OIL ORAL) Take 2 tablets by mouth once daily. [facility] CNTHERAPYon 06-10-2024 CNTHERAPY OT/PT/Speech Visit (PTWS) RICHARD HEAD ([id number]) 1965 M Date Time Provider Department 06/10/24 9:30 AM SKYLER FOREMAN PTWS Date Time Provider Department Center 06/10/2024 9:30 AM [id number], COREY PTWS Vishnu Larsen Reason for Visit: Physical Therapy [503] Primary Visit Diagnosis:Status post surgery [Z98.890] Allergies As of Date: 06/10/2024 (No Known Allergies) Date Reviewed: 04/10/2024 Reviewed by: Betty Barksdale PT - Fully Assessed Prescriptions as of 06/10/2024 - cholecalciferol, vitamin D3, (VITAMIN D3 ORAL) Take 1 tablet by mouth once daily. - MULTIVITAMIN ORAL Take 1 tablet by mouth once daily. - aspirin, enteric coated (ASPIRIN, ENTERIC COATED) 81 mg EC tablet Take 1 tablet by mouth two times a day for 14 days. ONCE TWO TIMES A DAY DOSING COMPLETED, THEN OKAY TO RESUME DAILY HOME DOSE - aspirin, enteric coated (ASPIRIN, ENTERIC COATED) 81 mg EC tablet Take 81 mg by mouth once daily. - naproxen (NAPROSYN) 250 mg tablet Take 500 mg by mouth once daily as needed (pain). Patient should start on March 20, 2024. - docosahexaenoic acid/epa (FISH OIL ORAL) Take 2 tablets by mouth once daily. [facility] CNTHERAPYon 06-06-2024 CNTHERAPY OT/PT/Speech Visit (PTWS) RICHARD HEAD ([id number]) 1965 M Date Time Provider Department 06/06/24 9:30 AM SKYLER FOREMAN PTWS Date Time Provider Department Center 06/06/2024 9:30 AM [id number], COREY PTHEIDI Larsen Reason for Visit: Physical Therapy [503] Primary Visit Diagnosis:Status post surgery [Z98.890] Allergies As of Date: 06/06/2024 (No Known Allergies) Date Reviewed: 04/10/2024 Reviewed by: Betty Barksdale, PT - Fully Assessed Prescriptions as of 06/06/2024 - cholecalciferol, vitamin D3, (VITAMIN D3 ORAL) Take 1 tablet by mouth once daily. - MULTIVITAMIN ORAL Take 1 tablet by mouth once daily. - aspirin, enteric coated (ASPIRIN, ENTERIC COATED) 81 mg EC tablet Take 1 tablet by mouth two times a day for 14 days. ONCE TWO TIMES A DAY DOSING COMPLETED, THEN OKAY TO RESUME DAILY HOME DOSE - aspirin, enteric coated (ASPIRIN, ENTERIC COATED) 81 mg EC tablet Take 81 mg by mouth once daily. - naproxen (NAPROSYN) 250 mg tablet Take 500 mg by mouth once daily as needed (pain). Patient should start on March 20, 2024. - docosahexaenoic acid/epa (FISH OIL ORAL) Take 2 tablets by mouth once daily. [facility] CNTHERAPYon 06-04-2024 CNTHERAPY OT/PT/Speech Visit (PTWS) RICHARD HEAD ([id number]) 1965 M Date Time Provider Department 06/04/24 3:30 PM JENNY SCHMIDT PTWS Date Time Provider Department Center 06/04/2024 3:30 PM [id number], MARIAH PTWS [facility] Reason for Visit: Physical Therapy [503] Primary Visit Diagnosis:Status post surgery [Z98.890] Allergies As of Date: 06/04/2024 (No Known Allergies) Date Reviewed: 04/10/2024 Reviewed by: Betty Barksdale PT - Fully Assessed Prescriptions as of 06/05/2024 - cholecalciferol, vitamin D3, (VITAMIN D3 ORAL) Take 1 tablet by mouth once daily. - MULTIVITAMIN ORAL Take 1 tablet by mouth once daily. - aspirin, enteric coated (ASPIRIN, ENTERIC COATED) 81 mg EC tablet Take 1 tablet by mouth two times a day for 14 days. ONCE TWO TIMES A DAY DOSING COMPLETED, THEN OKAY TO RESUME DAILY HOME DOSE - aspirin, enteric coated (ASPIRIN, ENTERIC COATED) 81 mg EC tablet Take 81 mg by mouth once daily. - naproxen (NAPROSYN) 250 mg tablet Take 500 mg by mouth once daily as needed (pain). Patient should start on March 20, 2024. - docosahexaenoic acid/epa (FISH OIL ORAL) Take 2 tablets by mouth once daily. [facility] Pulmonary Visit Reporton Pulmonary Visit Report [facility] Pulmonary Medicine [address] [place] [address] OFFICE VISIT Date of Service: 06/03/24 MR#: [id number] Acct: [id number] Name: RICHARD HEAD Rep #: [id number] : 1965 Provider: Mary Corral NP Age/Sex: 58/M [facility] Status: Signed Assessment and Plan Assessment and Plan (1) COPD (chronic obstructive pulmonary disease): Status: Chronic Qualifiers: COPD type: emphysema Emphysema type: centrilobular Qualified Code(s): J43.2 - Centrilobular emphysema Plan: He does not appear to be an exacerbation of COPD today. Cough does occur even at baseline, I have recommended a trial of triple therapy and patient was provided with samples, education regarding use of inhaler and oral hygiene instruction. He is to call within a few weeks of using Trelegy 100, 1 inhalation daily to give an update on the benefit of this inhaler. I will be looking for reduction in cough specifically. If the patient does have benefit then I will plan to send a prescription into the pharmacy. The patient is concerned about cost of inhalers and this was addressed today. He is encouraged to use his albuterol inhaler if respiratory symptoms develop. No need for prednisone or antibiotic. No additional testing at this time. Follow-up in March 2025 or sooner depending on inhaler response or if symptoms of respiratory illness occur. He has received his influenza vaccine this year. (2) Nicotine dependence, cigarettes, in remission: Status: Chronic Comment: LDCT February 26, 2024 Plan: Discussed current USPS TF guidelines for low-dose screening lung CT. Discussed risk/benefits including overdiagnosis, false positives and need for further testing. Counseled on importance of smoking cessation and adherence to screening program until patient no longer meets criteria. Patient is asymptomatic from lung cancer and is willing to undergo further testing and treatment if lung cancer is detected. Order is placed for LDCT February 2025. Orders: Orders Low Dose CT Lung Screening 9 Months F17.211 - Nicotine dependence, cigarettes, in remission Plan Details Follow Up: 10 Months (LMR) HPI HPI Comments Details: This 58-year-old male patient presents to the office today for follow up on his COPD and to discuss recent test results. He is ambulatory and currently on room air. In April he was treated with a Z-Miguel for a wet cough and reports that it was beneficial. He does continue to cough and is using albuterol inhaler a few times a week. He reports that he does have shortness of breath on exertion per his usual. At his baseline he does have a wet cough. He denies wheeze. He denies hemoptysis. He denies chest tightness, chest pain, chest palpitations. He denies fever, chills, body aches. He is not utilizing maintenance inhalers. He continues complete smoking cessation. If you recall, he quit smoking December 2021. He was smoking a pack per day prior to that, starting at age 16 Test results personally reviewed with the patient: LDCT from February 26, 2024 does not show evidence of lung mass or nodule. It continues to show centrilobular and paraseptal emphysematous changes. Intake Vital Signs 03/26/23 06:31 03/11/24 11:49 06/03/24 08:15 Height 5 ft 8 in 5 ft 8 in 5 ft 8 in Weight: 205 lb BMI 31.1 BP 138/76 H Blood Pressure Location Lt brachial Position Sitting Respiration 16 Pulse 65 Pulse Source Monitor Temp 97.4 F L Temperature Source Temporal Artery Pulse Oximetry (%) 97 Oxygen Delivery Method room air Intake Visit Reasons: 1 Y FU Chief Complaint: yearly Accompanied by: Self Allergies No Known Allergies Allergy (Verified 06/03/24 08:18) Medications ???Medication ???Instructions ???Recorded ???Confirmed ???Type acetaminophen 500 mg tablet 500 mg PO Q6H PRN 06/03/24 06/03/24 History (Tylenol Extra Strength) albuterol 90 mcg/actuation aerosol mcg inhalation 06/03/24 06/03/24 History inhaler naproxen 250 mg tablet 250 mg PO BID PRN 06/03/24 06/03/24 History Have you fallen in the past year?: No PFSH Medical History Arthritis Hernia Infected sebaceous cyst of skin Social History Smoking Status: Former smoker Tobacco: How many years used: 40 Review of Systems Resp Respiratory: Yes as per HPI Exam Const Constitutional: Positive conversant, cooperative, in no acute respiratory distress, well developed, well nourished and good hygiene Enamel wear Head Head: Yes normocephalic, Yes atraumatic and No cyanosis of lips/distal nose Eyes Eye: Positive clear conjunctiva; Negative nystagmus or scleral abnormality Ears Ear: Positive hearing normal and externa (more content not included)... [facility] Tele[facility] (PTWS) RICHARD HEAD ([id number]) 1965 M Date Time Provider Department 06/02/24 SKYLER FOREMAN PTWS During your visit today, we recorded the following information about you: Mercy Cook 06/02/2024 11:14 AM Signed Patient called for status update on authorization for continuation of physical therapy. PSS messaged Vishnu Stevens who directed the message to [employer]. Please notify patient if approval is received. Next appointment that is being held for patient is on 06/04/24 at 3:30 pm with Jenny Schmidt PTA. Nallely Anaya 06/03/2024 12:42 PM Signed I called patient to let him know we have his insurance approval and we scheduled the appointment for tomorrow. Allergies As of Date: 06/02/2024 (No Known Allergies) Date Reviewed: 04/10/2024 Reviewed by: Betty Barksdale, PT - Fully Assessed Reason for Visit: Insurance Authorization [[id number]] Cmt: Continued Physical Therapy Prescriptions as of 06/03/2024 - cholecalciferol, vitamin D3, (VITAMIN D3 ORAL) Take 1 tablet by mouth once daily. - MULTIVITAMIN ORAL Take 1 tablet by mouth once daily. - aspirin, enteric coated (ASPIRIN, ENTERIC COATED) 81 mg EC tablet Take 1 tablet by mouth two times a day for 14 days. ONCE TWO TIMES A DAY DOSING COMPLETED, THEN OKAY TO RESUME DAILY HOME DOSE - aspirin, enteric coated (ASPIRIN, ENTERIC COATED) 81 mg EC tablet Take 81 mg by mouth once daily. - naproxen (NAPROSYN) 250 mg tablet Take 500 mg by mouth once daily as needed (pain). Patient should start on March 20, 2024. - docosahexaenoic acid/epa (FISH OIL ORAL) Take 2 tablets by mouth once daily. Problem List As Of Date 06/02/2024 Noted Resolved Complex fracture of tibia, left, closed, initia*03/11/2024 03/19/2024 Former smoker [Z87.891] 03/12/2024 Obesity, Class I, BMI 30-34.9 [E66.811] 03/17/2024 Status post surgery [Z98.890] 04/17/2024 Encounter Status:Closed by NALLELY ANAYA on 06/03/24 Normal [facility] CNTHERAPYon 05-30-2024 CNTHERAPY OT/PT/Speech Visit (PTWS) RICHARD HEAD ([id number]) 1965 M Date Time Provider Department 05/30/24 10:15 AM JENNY SCHMIDT Date Time Provider Department Center 05/30/2024 10:15 AM [id number] SCHMIDT Reason for Visit: Physical Therapy [503] Primary Visit Diagnosis:Status post surgery [Z98.890] Allergies As of Date: 05/30/2024 (No Known Allergies) Date Reviewed: 04/10/2024 Reviewed by: Betty Barksdale, PT - Fully Assessed Prescriptions as of 05/30/2024 - cholecalciferol, vitamin D3, (VITAMIN D3 ORAL) Take 1 tablet by mouth once daily. - MULTIVITAMIN ORAL Take 1 tablet by mouth once daily. - aspirin, enteric coated (ASPIRIN, ENTERIC COATED) 81 mg EC tablet Take 1 tablet by mouth two times a day for 14 days. ONCE TWO TIMES A DAY DOSING COMPLETED, THEN OKAY TO RESUME DAILY HOME DOSE - aspirin, enteric coated (ASPIRIN, ENTERIC COATED) 81 mg EC tablet Take 81 mg by mouth once daily. - naproxen (NAPROSYN) 250 mg tablet Take 500 mg by mouth once daily as needed (pain). Patient should start on March 20, 2024. - docosahexaenoic acid/epa (FISH OIL ORAL) Take 2 tablets by mouth once daily. Normal [facility] CNTHERAPYon 05-27-2024 CNTHERAPY OT/PT/Speech Visit (PTWS) RICHARD HEAD ([id number]) 1965 M Date Time Provider Department 05/27/24 8:30 AM SKYLER FOREMAN PTHEIDI Date Time Provider Department [place] 05/27/2024 8:30 AM [id number] FOREMAN Reason for Visit: Physical Therapy [503] Primary Visit Diagnosis:Status post surgery [Z98.890] Allergies As of Date: 05/27/2024 (No Known Allergies) Date Reviewed: 04/10/2024 Reviewed by: Betty Barksdale, PT - Fully Assessed Prescriptions as of 05/27/2024 - cholecalciferol, vitamin D3, (VITAMIN D3 ORAL) Take 1 tablet by mouth once daily. - MULTIVITAMIN ORAL Take 1 tablet by mouth once daily. - aspirin, enteric coated (ASPIRIN, ENTERIC COATED) 81 mg EC tablet Take 1 tablet by mouth two times a day for 14 days. ONCE TWO TIMES A DAY DOSING COMPLETED, THEN OKAY TO RESUME DAILY HOME DOSE - aspirin, enteric coated (ASPIRIN, ENTERIC COATED) 81 mg EC tablet Take 81 mg by mouth once daily. - naproxen (NAPROSYN) 250 mg tablet Take 500 mg by mouth once daily as needed (pain). Patient should start on March 20, 2024. - docosahexaenoic acid/epa (FISH OIL ORAL) Take 2 tablets by mouth once daily. Normal [facility] CNTHERAPYon 05-16-2024 CNTHERAPY OT/PT/Speech Visit (PTWS) RICHARD HEAD ([id number]) 1965 M Date Time Provider Department 05/16/24 9:30 AM SKYLER FOREMAN PTWS Date Time Provider Department Center 05/16/2024 9:30 AM [id number], COREY PTWS Vishnu Larsen Reason for Visit: PT Progress Note [1596] Primary Visit Diagnosis:Status post surgery [Z98.890] Allergies As of Date: 05/16/2024 (No Known Allergies) Date Reviewed: 04/10/2024 Reviewed by: Betty Barksdale, PT - Fully Assessed Prescriptions as of 05/19/2024 - cholecalciferol, vitamin D3, (VITAMIN D3 ORAL) Take 1 tablet by mouth once daily. - MULTIVITAMIN ORAL Take 1 tablet by mouth once daily. - aspirin, enteric coated (ASPIRIN, ENTERIC COATED) 81 mg EC tablet Take 1 tablet by mouth two times a day for 14 days. ONCE TWO TIMES A DAY DOSING COMPLETED, THEN OKAY TO RESUME DAILY HOME DOSE - aspirin, enteric coated (ASPIRIN, ENTERIC COATED) 81 mg EC tablet Take 81 mg by mouth once daily. - naproxen (NAPROSYN) 250 mg tablet Take 500 mg by mouth once daily as needed (pain). Patient should start on March 20, 2024. - docosahexaenoic acid/epa (FISH OIL ORAL) Take 2 tablets by mouth once daily. Normal [facility] CNTHERAPYon 05-12-2024 CNTHERAPY OT/PT/Speech Visit (PTWS) RICHARD HEAD ([id number]) 1965 M Date Time Provider Department 05/12/24 10:45 AM WING HENDERSON PTWS Date Time Provider Department Center 05/12/2024 10:45 AM [id number], SEAN PTWS Vishnu Larsen Reason for Visit: Physical Therapy [503] Primary Visit Diagnosis:Status post surgery [Z98.890] Allergies As of Date: 05/12/2024 (No Known Allergies) Date Reviewed: 04/10/2024 Reviewed by: Betty Barksdale PT - Fully Assessed Prescriptions as of 05/12/2024 - cholecalciferol, vitamin D3, (VITAMIN D3 ORAL) Take 1 tablet by mouth once daily. - MULTIVITAMIN ORAL Take 1 tablet by mouth once daily. - aspirin, enteric coated (ASPIRIN, ENTERIC COATED) 81 mg EC tablet Take 1 tablet by mouth two times a day for 14 days. ONCE TWO TIMES A DAY DOSING COMPLETED, THEN OKAY TO RESUME DAILY HOME DOSE - aspirin, enteric coated (ASPIRIN, ENTERIC COATED) 81 mg EC tablet Take 81 mg by mouth once daily. - naproxen (NAPROSYN) 250 mg tablet Take 500 mg by mouth once daily as needed (pain). Patient should start on March 20, 2024. - docosahexaenoic acid/epa (FISH OIL ORAL) Take 2 tablets by mouth once daily. Normal [facility] CBC-Complete Blood Cnt No Di ffon 05-08-2024 Erythrocyte distribution width (RBC) [Ratio] 13.3 % Normal 11.6-14.6 [facility] Comment on above: Performed By: #### L 500.4050, L100.0500, L501.9910, L500.4100 #### [facility] [address] [place], [address] Hematocrit (Bld) [Volume fraction] 44.0 % Normal 40-54 [facility] Comment on above: Performed By: #### L 500.4050, L100.0500, L501.9910, L500.4100 #### [facility] [address] [place], [address] Hemoglobin (Bld) [Mass/Vol] 14.1 g/dL Normal 13.0-16.5 [facility] Comment on above: Performed By: #### L 500.4050, L100.0500, L501.9910, L500.4100 #### [facility] [address] [place], [address] MCH (RBC) [Entitic mass] 29.5 pg Normal 27.0-32.0 [facility] Comment on above: Performed By: #### L 500.4050, L100.0500, L501.9910, L500.4100 #### [facility] [address] [place], [address] MCHC (RBC) [Mass/Vol] 32.0 g/dL Normal 32-36 [facility] Comment on above: Performed By: #### L 500.4050, L100.0500, L501.9910, L500.4100 #### [facility] [address] [place], [address] MCV (RBC) [Entitic vol] 92.1 fL Normal 80-94 [facility] Comment on above: Performed By: #### L 500.4050, L100.0500, L501.9910, L500.4100 #### [facility] [address] [place], [address] Platelet mean volume (Bld) [Entitic vol] 9.1 fL Normal 6.2-12.0 [facility] Comment on above: Performed By: #### L 500.4050, L100.0500, L501.9910, L500.4100 #### [facility] [address] [place], [address] Platelets (Bld) [#/Vol] 365 10*3/uL Normal 150-450 [facility] Comment on above: Performed By: #### L 500.4050, L100.0500, L501.9910, L500.4100 #### [facility] [address] [place], [address] RBC (Bld) [#/Vol] 4.78 10*6/uL Normal 4.6-6.2 [facility] Comment on above: Performed By: #### L 500.4050, L100.0500, L501.9910, L500.4100 #### [facility] [address] [place], [address] RDW SD 45.6 fl High 35.1-43.9 [facility] Comment on above: Performed By: #### L 500.4050, L100.0500, L501.9910, L500.4100 #### [facility] [address] [place], [address] WBC (Bld) [#/Vol] 13.2 10*3/uL High 4.4-11.0 [facility] Comment on above: Performed By: #### L 500.4050, L100.0500, L501.9910, L500.4100 #### [facility] [address] [place], [address] CNTHERAPYon 05-08-2024 CNTHERAPY OT/PT/Speech Visit (PTWS) RICHARD HEAD ([id number]) 1965 M Date Time Provider Department 05/08/24 9:30 AM JENNY SCHMIDT PTWS Date Time Provider Department [place] 05/08/2024 9:30 AM [id number], MARIAH PTHEIDI Larsen Reason for Visit: Physical Therapy [503] Primary Visit Diagnosis:Status post surgery [Z98.890] Allergies As of Date: 05/08/2024 (No Known Allergies) Date Reviewed: 04/10/2024 Reviewed by: Betty Barksdale, PT - Fully Assessed Prescriptions as of 05/08/2024 - cholecalciferol, vitamin D3, (VITAMIN D3 ORAL) Take 1 tablet by mouth once daily. - MULTIVITAMIN ORAL Take 1 tablet by mouth once daily. - aspirin, enteric coated (ASPIRIN, ENTERIC COATED) 81 mg EC tablet Take 1 tablet by mouth two times a day for 14 days. ONCE TWO TIMES A DAY DOSING COMPLETED, THEN OKAY TO RESUME DAILY HOME DOSE - aspirin, enteric coated (ASPIRIN, ENTERIC COATED) 81 mg EC tablet Take 81 mg by mouth once daily. - naproxen (NAPROSYN) 250 mg tablet Take 500 mg by mouth once daily as needed (pain). Patient should start on March 20, 2024. - docosahexaenoic acid/epa (FISH OIL ORAL) Take 2 tablets by mouth once daily. Normal [facility] ilon 05-08-2024 Albumin [Mass/Vol] 4.8 g/dL Normal 3.2-5.0 [facility] Comment on above: Performed By: #### L 500.4050, L100.0500, L501.9910, L500.4100 #### [facility] [address] [place], [address] Albumin/Globulin [Mass ratio] 1.5 {ratio} Normal 0.9-2.4 [facility] Comment on above: Performed By: #### L 500.4050, L100.0500, L501.9910, L500.4100 #### [facility] [address] [place], [address] ALK P 87 U/L Normal 45-117 [facility] Comment on above: Performed By: #### L 500.4050, L100.0500, L501.9910, L500.4100 #### [facility] [address] [place], [address] ALT [Catalytic activity/Vol] 48 U/L Normal 16-61 [facility] Comment on above: Performed By: #### L 500.4050, L100.0500, L501.9910, L500.4100 #### [facility] [address] [place], [address] AST [Catalytic activity/Vol] 26 U/L Normal 15-37 [facility] Comment on above: Performed By: #### L 500.4050, L100.0500, L501.9910, L500.4100 #### [facility] [address] [place], [address] Bilirubin [Mass/Vol] 0.50 mg/dL Normal 0.20-1.00 [facility] Comment on above: Result Comment: For patients on eltrombopag therapy, use of Dimension [place] TBIL is not recommended. Performed By: #### L 500.4050, L100.0500, L501.9910, L500.4100 #### [facility] [address] [place], [address] BUN/CRE 18.5 RATIO Normal 10-20 [facility] Comment on above: Performed By: #### L 500.4050, L100.0500, L501.9910, L500.4100 #### [facility] [address] [place], [address] CA,Total 9.7 mg/dL Normal 8.5-10.1 [facility] Comment on above: Performed By: #### L 500.4050, L100.0500, L501.9910, L500.4100 #### [facility] [address] [place], [address] Chloride [Moles/Vol] 99 mmol/L Normal 98-107 [facility] Comment on above: Performed By: #### L 500.4050, L100.0500, L501.9910, L500.4100 #### [facility] [address] [place], [address] CO2 [Moles/Vol] 29.0 mmol/L Normal 21.0-32.0 [facility] Comment on above: Performed By: #### L 500.4050, L100.0500, L501.9910, L500.4100 #### [facility] [address] [place], [address] Creatinine [Mass/Vol] 0.92 mg/dL Normal 0.70-1.30 [facility] Comment on above: Result Comment: The validity of the calculated GFR GFRAA in patients over 70 years has not been determined. Clinical correlation is essential. Performed By: #### L 500.4050, L100.0500, L501.9910, L500.4100 #### [facility] [address] [place], [address] EST GFR - AA 109 mL/min Normal >60 [facility] Comment on above: Result Comment: Afri can Brazilian GFR Calc Performed By: #### L 500.4050, L100.0500, L501.9910, L500.4100 #### [facility] [address] [place], [address] GAP 5 Normal 5-15 [facility] Comment on above: Performed By: #### L 500.4050, L100.0500, L501.9910, L500.4100 #### [facility] [address] [place], [address] GFR/1.73 sq M.predicted among non-blacks MDRD (S/P/Bld) [Vol rate/Area] 90 mL/min/{1.73_m2} Normal >60 [facility] Comment on above: Result Comment: Non- GFR Calc Performed By: #### L 500.4050, L100.0500, L501.9910, L500.4100 #### [facility] [address] [place], [address] Globulin (S) [Mass/Vol] 3.1 g/dL Normal 2.2-4.2 [facility] Comment on above: Performed By: #### L 500.4050, L100.0500, L501.9910, L500.4100 #### [facility] [address] [place], [address] Glucose [Mass/Vol] 101 mg/dL Normal 74-106 [facility] Comment on above: Result Comment: Fast ing Glucose result from 100 to 125 mg/dL suggests IMPAIRED HOMEOSTASIS per A.D.A. criteria. Performed By: #### L 500.4050, L100.0500, L501.9910, L500.4100 #### [facility] [address] [place], [address] Potassium [Moles/Vol] 4.5 mmol/L Normal 3.5-5.1 [facility] Comment on above: Performed By: #### L 500.4050, L100.0500, L501.9910, L500.4100 #### [facility] [address] [place], [address] Sodium [Moles/Vol] 133 mmol/L Low 136-145 [facility] Comment on above: Performed By: #### L 500.4050, L100.0500, L501.9910, L500.4100 #### [facility] [address] [place], [address] T PROT 7.9 g/dL Normal 6.4-8.2 [facility] Comment on above: Performed By: #### L 500.4050, L100.0500, L501.9910, L500.4100 #### [facility] [address] [place], [address] Urea nitrogen [Mass/Vol] 17 mg/dL Normal 7-18 [facility] Comment on above: Performed By: #### L 500.4050, L100.0500, L501.9910, L500.4100 #### [facility] [address] [place], [address] Lipid Profileon 05-08-2024 Cholesterol [Mass/Vol] 188 mg/dL Normal [address] [facility] Comment on above: Result Comment: <200 mg/dL Desirable 200-240 mg/dL Borderline >240 mg/dL High Risk Performed By: #### L 500.4050, L100.0500, L501.9910, L500.4100 #### [facility] [address] [place], [address] Cholesterol in HDL [Mass/Vol] 52 mg/dL Normal [facility] Comment on above: Result Comment: The drugs N-Acetylcysteine and Metamizole may falsely depress this assay. Reference Range HDL <40 mg/dL Low HDL Cholesterol HDL >or= 60 mg/dL High HDL Cholesterol Performed By: #### L 500.4050, L100.0500, L501.9910, L500.4100 #### [facility] [address] [place], [address] Cholesterol in LDL [Mass/Vol] 127 mg/dL Normal 0-130 [facility] Comment on above: Performed By: #### L 500.4050, L100.0500, L501.9910, L500.4100 #### [facility] [address] [place], [address] Cholesterol in VLDL [Mass/Vol] 9 mg/dL Normal 5-40 [facility] Comment on above: Performed By: #### L 500.4050, L100.0500, L501.9910, L500.4100 #### [facility] [address] [place], [address] Triglyceride [Mass/Vol] 46 mg/dL Normal [facility] Comment on above: Result Comment: The drugs N-Acetylcysteine and Metamizole may falsely depress this assay. Serum Triglycerides Reference Interval Normal <150 mg/dL Borderline high 150 - 199 mg/dL High 200 - 499 mg/dL Very High > or = 500 mg/dL Performed By: #### L 500.4050, L100.0500, L501.9910, L500.4100 #### [facility] [address] [place], [place], [address] PSA,Total - Annual Screenon 05-08-2024 PSA,TOT SCREEN 0.98 ng/mL Normal 0.00-4.00 [facility] Comment on above: Result Comment: This test was performed using the TPSA assay method for the [employer] chemistry system. Values obtained with different assay methods cannot be used interchangably. When changing PSA assays in the course of monitoring a patient, additional sequential testing should be carried out to confirm baseline values. Performed By: #### L 500.4050, L100.0500, L501.9910, L500.4100 #### [facility] [address] [place], [address] CNTHERAPYon 05-05-2024 CNTHERAPY OT/PT/Speech Visit (PTWS) RICHARD HEAD ([id number]) 1965 M Date Time Provider Department 05/05/24 12:15 PM SKYLER FOREMAN PTHEIDI Date Time Provider Department [place] 05/05/2024 12:15 PM [id number], COREY PTWS [facility] Reason for Visit: Physical Therapy [503] Primary Visit Diagnosis:Status post surgery [Z98.890] Allergies As of Date: 05/05/2024 (No Known Allergies) Date Reviewed: 04/10/2024 Reviewed by: Betty Barksdale, PT - Fully Assessed Prescriptions as of 05/05/2024 - cholecalciferol, vitamin D3, (VITAMIN D3 ORAL) Take 1 tablet by mouth once daily. - MULTIVITAMIN ORAL Take 1 tablet by mouth once daily. - aspirin, enteric coated (ASPIRIN, ENTERIC COATED) 81 mg EC tablet Take 1 tablet by mouth two times a day for 14 days. ONCE TWO TIMES A DAY DOSING COMPLETED, THEN OKAY TO RESUME DAILY HOME DOSE - aspirin, enteric coated (ASPIRIN, ENTERIC COATED) 81 mg EC tablet Take 81 mg by mouth once daily. - naproxen (NAPROSYN) 250 mg tablet Take 500 mg by mouth once daily as needed (pain). Patient should start on March 20, 2024. - docosahexaenoic acid/epa (FISH OIL ORAL) Take 2 tablets by mouth once daily. Normal [facility] CNTHERAPYon 04-30-2024 CNTHERAPY OT/PT/Speech Visit (PTWS) RICHARD HEAD ([id number]) 1965 M Date Time Provider Department 04/30/24 9:45 AM WING HENDERSON PTHEIDI Date Time Provider Department [place] 04/30/2024 9:45 AM [id number], SEAN PTWS Vishnu Larsen Reason for Visit: Physical Therapy [503] Primary Visit Diagnosis:Status post surgery [Z98.890] Allergies As of Date: 04/30/2024 (No Known Allergies) Date Reviewed: 04/10/2024 Reviewed by: Betty Barksdale, PT - Fully Assessed Prescriptions as of 05/01/2024 - cholecalciferol, vitamin D3, (VITAMIN D3 ORAL) Take 1 tablet by mouth once daily. - MULTIVITAMIN ORAL Take 1 tablet by mouth once daily. - aspirin, enteric coated (ASPIRIN, ENTERIC COATED) 81 mg EC tablet Take 1 tablet by mouth two times a day for 14 days. ONCE TWO TIMES A DAY DOSING COMPLETED, THEN OKAY TO RESUME DAILY HOME DOSE - aspirin, enteric coated (ASPIRIN, ENTERIC COATED) 81 mg EC tablet Take 81 mg by mouth once daily. - naproxen (NAPROSYN) 250 mg tablet Take 500 mg by mouth once daily as needed (pain). Patient should start on March 20, 2024. - docosahexaenoic acid/epa (FISH OIL ORAL) Take 2 tablets by mouth once daily. [facility] CNTHERAPYon 04-28-2024 CNTHERAPY OT/PT/Speech Visit (PTWS) RICHARD HEAD ([id number]) 1965 M Date Time Provider Department 04/28/24 10:45 AM WING HENDERSON PTWS Date Time Provider Department Center 04/28/2024 10:45 AM [id number], SEAN PTWS Vishnu Larsen Reason for Visit: Physical Therapy [503] Primary Visit Diagnosis:Status post surgery [Z98.890] Allergies As of Date: 04/28/2024 (No Known Allergies) Date Reviewed: 04/10/2024 Reviewed by: Betty Barksdale, PT - Fully Assessed Prescriptions as of 04/28/2024 - cholecalciferol, vitamin D3, (VITAMIN D3 ORAL) Take 1 tablet by mouth once daily. - MULTIVITAMIN ORAL Take 1 tablet by mouth once daily. - aspirin, enteric coated (ASPIRIN, ENTERIC COATED) 81 mg EC tablet Take 1 tablet by mouth two times a day for 14 days. ONCE TWO TIMES A DAY DOSING COMPLETED, THEN OKAY TO RESUME DAILY HOME DOSE - aspirin, enteric coated (ASPIRIN, ENTERIC COATED) 81 mg EC tablet Take 81 mg by mouth once daily. - naproxen (NAPROSYN) 250 mg tablet Take 500 mg by mouth once daily as needed (pain). Patient should start on March 20, 2024. - docosahexaenoic acid/epa (FISH OIL ORAL) Take 2 tablets by mouth once daily. Project Estimator: Addendum Therapy (PT/OT/Speech/Resp) ID: [id number] 04/28/2024 11:18 AM Author: WING HENDERSON Signed by WING HENDERSON PT on 04/28/2024 at 11:18 AM * * * This document replaces document [id number] * * * Document text: Program_ID:[id number] Access Code: [email or web address] URL: [email or web address] Date: 04-28-2024 Prepared By: Skyler Foreman Program Notes Exercises - Supine Knee Extension Stretch on Towel Roll - 1 x daily - 7 x weekly - 4 sets - 10 reps - Standing Tandem Balance with Counter Support - 1 x daily - 7 x weekly - 5 sets - reps - Supine Ankle Circles - 1 x daily - 7 x weekly - 3 sets - 10 reps - Seated Ankle Alphabet - 1 x daily - 7 x weekly - 3 sets - 10 reps - Long Sitting Calf Stretch with Strap - 1 x daily - 7 x weekly - 3 sets - 3 reps - Seated Long Arc Quad - 1 x daily - 7 x weekly - 3 sets - 10 reps - Active Straight Leg Raise with Quad Set - 1 x daily - 7 x weekly - 3 sets - 10 reps - Standing Ankle Dorsiflexion Stretch on Chair - 1 x daily - 7 x weekly - 3 sets - 10 reps ----- [facility] THERAPY NTon 04-28-2024 THERAPY NT HNO ID: [id number] Author: WING HENDERSON PT Service: ? Author Type: Physical Therapist Type: Therapy (PT/OT/Speech/Resp) Filed: 04/28/2024 11:18 Note Text: Program_ID:[id number] Access Code: [email or web address] URL: [email or web address] Date: 04-28-2024 Prepared By: Skyler Foreman Program Notes Exercises - Supine Knee Extension Stretch on Towel Roll - 1 x daily - 7 x weekly - 4 sets - 10 reps - Standing Tandem Balance with Counter Support - 1 x daily - 7 x weekly - 5 sets - reps - Supine Ankle Circles - 1 x daily - 7 x weekly - 3 sets - 10 reps - Seated Ankle Alphabet - 1 x daily - 7 x weekly - 3 sets - 10 reps - Long Sitting Calf Stretch with Strap - 1 x daily - 7 x weekly - 3 sets - 3 reps - Seated Long Arc Quad - 1 x daily - 7 x weekly - 3 sets - 10 reps - Active Straight Leg Raise with Quad Set - 1 x daily - 7 x weekly - 3 sets - 10 reps - Standing Ankle Dorsiflexion Stretch on Chair - 1 x daily - 7 x weekly - 3 sets - 10 reps [facility] CNTHERAPYon 04-25-2024 CNTHERAPY OT/PT/Speech Visit (PTWS) RICHARD HEAD ([id number]) 1965 M Date Time Provider Department 04/25/24 10:30 AM WING HENDERSON PTHEIDI Date Time Provider Department [place] 04/25/2024 10:30 AM [id number], SEAN PTHEIDI Larsen Reason for Visit: Physical Therapy [503] Primary Visit Diagnosis:Status post surgery [Z98.890] Allergies As of Date: 04/25/2024 (No Known Allergies) Date Reviewed: 04/10/2024 Reviewed by: Betty Barksdale, PT - Fully Assessed Prescriptions as of 04/25/2024 - cholecalciferol, vitamin D3, (VITAMIN D3 ORAL) Take 1 tablet by mouth once daily. - MULTIVITAMIN ORAL Take 1 tablet by mouth once daily. - aspirin, enteric coated (ASPIRIN, ENTERIC COATED) 81 mg EC tablet Take 1 tablet by mouth two times a day for 14 days. ONCE TWO TIMES A DAY DOSING COMPLETED, THEN OKAY TO RESUME DAILY HOME DOSE - aspirin, enteric coated (ASPIRIN, ENTERIC COATED) 81 mg EC tablet Take 81 mg by mouth once daily. - naproxen (NAPROSYN) 250 mg tablet Take 500 mg by mouth once daily as needed (pain). Patient should start on March 20, 2024. - docosahexaenoic acid/epa (FISH OIL ORAL) Take 2 tablets by mouth once daily. [facility] CNTHERAPYon 04-22-2024 CNTHERAPY OT/PT/Speech Visit (PTWS) RICHARD HEAD ([id number]) 1965 M Date Time Provider Department 04/22/24 12:30 PM WING HENDERSON PTHEIDI Date Time Provider Department Center 04/22/2024 12:30 PM [id number], SEAN PTHEIDI Larsen Reason for Visit: Physical Therapy [503] Primary Visit Diagnosis:Status post surgery [Z98.890] Allergies As of Date: 04/22/2024 (No Known Allergies) Date Reviewed: 04/10/2024 Reviewed by: Betty Barksdale, PT - Fully Assessed Prescriptions as of 04/22/2024 - cholecalciferol, vitamin D3, (VITAMIN D3 ORAL) Take 1 tablet by mouth once daily. - MULTIVITAMIN ORAL Take 1 tablet by mouth once daily. - aspirin, enteric coated (ASPIRIN, ENTERIC COATED) 81 mg EC tablet Take 1 tablet by mouth two times a day for 14 days. ONCE TWO TIMES A DAY DOSING COMPLETED, THEN OKAY TO RESUME DAILY HOME DOSE - aspirin, enteric coated (ASPIRIN, ENTERIC COATED) 81 mg EC tablet Take 81 mg by mouth once daily. - naproxen (NAPROSYN) 250 mg tablet Take 500 mg by mouth once daily as needed (pain). Patient should start on March 20, 2024. - docosahexaenoic acid/epa (FISH OIL ORAL) Take 2 tablets by mouth once daily. Project Estimator: Addendum Therapy (PT/OT/Speech/Resp) ID: [id number] 04/22/2024 1:03 PM Author: WING HENDERSON Signed by WING HENDERSON PT on 04/22/2024 at 1:03 PM * * * This document replaces document [id number] * * * Document text: Program_ID:[id number] Access Code: [email or web address] URL: [email or web address] Date: 04-22-2024 Prepared By: Skyler Foreman Program Notes Exercises - Supine Knee Extension Stretch on Towel Roll - 1 x daily - 7 x weekly - 4 sets - 10 reps - Standing Tandem Balance with Counter Support - 1 x daily - 7 x weekly - 5 sets - reps - Supine Ankle Circles - 1 x daily - 7 x weekly - 3 sets - 10 reps - Seated Ankle Alphabet - 1 x daily - 7 x weekly - 3 sets - 10 reps - Long Sitting Calf Stretch with Strap - 1 x daily - 7 x weekly - 3 sets - 3 reps - Seated Long Arc Quad - 1 x daily - 7 x weekly - 3 sets - 10 reps - Active Straight Leg Raise with Quad Set - 1 x daily - 7 x weekly - 3 sets - 10 reps ----- [facility] THERAPY NTon 04-22-2024 THERAPY NT HNO ID: [id number] Author: WING HENDERSON PT Service: ? Author Type: Physical Therapist Type: Therapy (PT/OT/Speech/Resp) Filed: 04/22/2024 13:03 Note Text: Program_ID:[id number] Access Code: [email or web address] URL: [email or web address] Date: 04-22-2024 Prepared By: Skyler Foreman Program Notes Exercises - Supine Knee Extension Stretch on Towel Roll - 1 x daily - 7 x weekly - 4 sets - 10 reps - Standing Tandem Balance with Counter Support - 1 x daily - 7 x weekly - 5 sets - reps - Supine Ankle Circles - 1 x daily - 7 x weekly - 3 sets - 10 reps - Seated Ankle Alphabet - 1 x daily - 7 x weekly - 3 sets - 10 reps - Long Sitting Calf Stretch with Strap - 1 x daily - 7 x weekly - 3 sets - 3 reps - Seated Long Arc Quad - 1 x daily - 7 x weekly - 3 sets - 10 reps - Active Straight Leg Raise with Quad Set - 1 x daily - 7 x weekly - 3 sets - 10 reps [facility] CNTHERAPYon 04-17-2024 CNTHERAPY OT/PT/Speech Visit (PTWS) RICHARD HEAD ([id number]) 1965 M Date Time Provider Department 04/17/24 12:15 PM SKYLER FOREMAN PTWS Date Time Provider Department [place] 04/17/2024 12:15 PM [id number], COREY PTWS Vishnu Larsen Reason for Visit: PT Eval [747] Primary Visit Diagnosis:Status post surgery [Z98.890] Allergies As of Date: 04/17/2024 (No Known Allergies) Date Reviewed: 04/10/2024 Reviewed by: Betty Barksdale, PT - Fully Assessed Prescriptions as of 04/17/2024 - cholecalciferol, vitamin D3, (VITAMIN D3 ORAL) Take 1 tablet by mouth once daily. - MULTIVITAMIN ORAL Take 1 tablet by mouth once daily. - aspirin, enteric coated (ASPIRIN, ENTERIC COATED) 81 mg EC tablet Take 1 tablet by mouth two times a day for 14 days. ONCE TWO TIMES A DAY DOSING COMPLETED, THEN OKAY TO RESUME DAILY HOME DOSE - aspirin, enteric coated (ASPIRIN, ENTERIC COATED) 81 mg EC tablet Take 81 mg by mouth once daily. - naproxen (NAPROSYN) 250 mg tablet Take 500 mg by mouth once daily as needed (pain). Patient should start on March 20, 2024. - docosahexaenoic acid/epa (FISH OIL ORAL) Take 2 tablets by mouth once daily. Project Estimator: Addendum Therapy (PT/OT/Speech/Resp) ID: [id number] 04/17/2024 12:46 PM Author: SKYLER FOREMAN Signed by SKYLER FOREMAN PT on 04/17/2024 at 12:46 PM * * * This document replaces document [id number] * * * Document text: Program_ID:[id number] Access Code: [email or web address] URL: [email or web address] Date: 04-17-2024 Prepared By: Skyler oFreman Program Notes Exercises - Supine Knee Extension Stretch on Towel Roll - 1 x daily - 7 x weekly - 4 sets - 10 reps - Standing Tandem Balance with Counter Support - 1 x daily - 7 x weekly - 5 sets - reps ----- [facility] THERAPY NTon 04-17-2024 THERAPY NT HNO ID: [id number] Author: SKYLER FOREMAN, PT Service: ? Author Type: Physical Therapist Type: Therapy (PT/OT/Speech/Resp) Filed: 04/17/2024 12:46 Note Text: Program_ID:[id number] Access Code: [email or web address] URL: [email or web address] Date: 04-17-2024 Prepared By: Skyler Foreman Program Notes Exercises - Supine Knee Extension Stretch on Towel Roll - 1 x daily - 7 x weekly - 4 sets - 10 reps - Standing Tandem Balance with Counter Support - 1 x daily - 7 x weekly - 5 sets - reps [facility] CNPNon 04-02-2024 CNPN Telephone (HCSIND) RICHARD HEAD ([id number]) 1965 M Date Time Provider Department 04/02/24 BREE BORDEN During your visit today, we recorded the following information about you: Bree Borden PTA 04/02/2024 10:35 AM Signed Good morning. Patient will be finishing up his home care PT next week and will be transitioning to OP PT. Can you please put in those orders so we can get that set up for him? Thanks Carisa Burch MD 04/02/2024 1:35 PM Signed Addended by: CARISA BURCH on: 04/02/2024 01:35 PM Modules accepted: Orders Allergies As of Date: 04/02/2024 (No Known Allergies) Date Reviewed: 04/02/2024 Reviewed by: Bree Borden PTA - Fully Assessed Reason for Visit: Home Care [4073] Cmt: OP PT orders Primary Visit Diagnosis:Status post surgery [Z98.890] Order(s):CONSULT TO PHYSICAL THERAPY [9032] Order #: [id number]: 1 Prescriptions as of 04/02/2024 - cholecalciferol, vitamin D3, (VITAMIN D3 ORAL) Take 1 tablet by mouth once daily. - MULTIVITAMIN ORAL Take 1 tablet by mouth once daily. - aspirin, enteric coated (ASPIRIN, ENTERIC COATED) 81 mg EC tablet Take 1 tablet by mouth two times a day for 14 days. ONCE TWO TIMES A DAY DOSING COMPLETED, THEN OKAY TO RESUME DAILY HOME DOSE - aspirin, enteric coated (ASPIRIN, ENTERIC COATED) 81 mg EC tablet Take 81 mg by mouth once daily. - naproxen (NAPROSYN) 250 mg tablet Take 500 mg by mouth once daily as needed (pain). Patient should start on March 20, 2024. - docosahexaenoic acid/epa (FISH OIL ORAL) Take 2 tablets by mouth once daily. Problem List As Of Date 04/02/2024 Noted Resolved Complex fracture of tibia, left, closed, initia*03/11/2024 03/19/2024 Former smoker [Z87.891] 03/12/2024 Obesity, Class I, BMI 30-34.9 [E66.811] 03/17/2024 Encounter Status:Closed by BREE BORDEN on 04/02/24 [facility] CNOVon 03-31-2024 CNOV Office Visit (AGPOB1 ) RICHADR HEAD ([id number]) 1965 M Date Time Provider Department 03/31/24 10:15 AM CARISA BURCH AGPOB1 During your visit today, we recorded the following information about you: Respiration Weight Height 16/minute 94.8 kg 1.727 m Carisa Burch MD 03/31/2024 3:17 PM Signed ORTHOPAEDIC SURGERY OFFICE NOTE: SURGERY DATE: 1) 03/12/2024 SURGERY: 1) Insertion of a Left Intramedullary Tibial Nail for a Left Segmental Tibial Shaft Fracture CHIEF COMPLAINT: Routine Post-Operative Follow-Up HISTORY OF PRESENT ILLNESS: Richard Head is a 58 year old male who presents for routine post-operative follow-up from the above listed operation (see Surgery above for full details). At today's appointment, the patient reports doing relatively well. The patient endorses controlled pain to the left lower leg. The patient is ambulatory with a walker. The patient is participating in physical therapy. The patient denies fevers and chills. The patient has no additional orthopaedic traumatic complaints at this time. Reviewed nursing note and current pain scale. History reviewed. No pertinent past medical history. History reviewed. No pertinent surgical history. History reviewed. No pertinent family history. Social History Tobacco Use Smoking status: Never Smokeless tobacco: Never Substance Use Topics Alcohol use: Never Drug use: Never MEDICATIONS: Current Outpatient Medications Medication Sig cholecalciferol, vitamin D3, (VITAMIN D3 ORAL) Take 1 tablet by mouth once daily. MULTIVITAMIN ORAL Take 1 tablet by mouth once daily. aspirin, enteric coated (ASPIRIN, ENTERIC COATED) 81 mg EC tablet Take 1 tablet by mouth two times a day for 14 days. ONCE TWO TIMES A DAY DOSING COMPLETED, THEN OKAY TO RESUME DAILY HOME DOSE aspirin, enteric coated (ASPIRIN, ENTERIC COATED) 81 mg EC tablet Take 81 mg by mouth once daily. naproxen (NAPROSYN) 250 mg tablet Take 500 mg by mouth once daily as needed (pain). Patient should start on March 20, 2024. docosahexaenoic acid/epa (FISH OIL ORAL) Take 2 tablets by mouth once daily. No current facility-administered medications for this visit. ALLERGIES: ALLERGIES No Known Allergies PHYSICAL EXAMINATION: Resp 16 Ht 5' 8 (1.73m) Wt 209 lb (94.8kg) BMI 31.79 kg/(m2). General Appearance: No acute distress Skin: See Extremity exam below for full details Left Lower Extremity: Healing surgical incisions to the left lower leg. There is no shannan-incisional erythema nor drainage. Compartments of the thigh and leg are soft and compressible. The patient has active knee flexion, knee extension, ankle dorsiflexion, ankle plantarflexion and extensor hallucis longus motor function. Sensation intact to light touch in the sural, saphenous, superficial peroneal, deep peroneal and tibial nerve distributions. Brisk capillary refill to the digits of the foot. IMAGES: Recent Results (from the past 36 hour(s)) XR TIBIA FIBULA 2V AP/LAT LEFT Narrative 2-view left tibia/fibula x-rays demonstrate maintained reduction of the segmental tibial shaft fracture with intact orthopaedic implants. ASSESSMENT AND PLAN: 1. Closed complex fracture of left tibia with routine healing, subsequent encounter - ICD9: V54.16, ICD10: S82.292D -2-view left tibia/fibula x-rays ordered, obtained and independently interpreted (see image interpretation above for full details) -Weight-bearing as tolerated with the left lower extremity -Ambulation assistance devices as needed for safe mobilization -Pain control with NSAIDs and acetaminophen as needed -Ice and elevation of the left lower extremity for pain control and swelling reduction -Incisional care: the patient may participate in hygiene (avoid soaking/saturation for an additional 2 weeks) -Physical therapy/home exercises for continued rehabilitation -The patient will follow-up in 12 weeks or sooner if needed OARRS reviewed All patient and family questions and concerns were answered and addressed Carisa Burch MD Orthopaedic Trauma Surgery 03/31/2024 3:16 PM Allergies As of Date: 03/31/2024 (No Known Allergies) Date Reviewed: 03/31/2024 Reviewed by: Carisa Burch MD - Fully Assessed Reason for Visit: Established Patient [175] Follow Up [171] Post Op [174] Pain [78] Fracture [4131] Swelling [205] Primary Visit Diagnosis:Closed complex fracture of left tibia with routine healing, subsequent encounter [T95.826Q] Order(s):XR TIBIA FIBULA 2V AP/LAT LEFT [4510021] Order #: [id number] Prescriptions as of 03/31/2024 - cholecalciferol, vitamin D3, (VITAMIN D3 ORAL) Take 1 tablet by mouth once daily. - MULTIVITAMIN ORAL Take 1 tablet by mouth once daily. - aspirin, enteric coated (ASPIRIN, ENTERIC COATED) 81 mg EC tablet Take 1 tablet by mouth two times a day for 14 days. ONCE TWO (more content not included)... [facility] XR Tibia and Fibula - left A P and Lateralon 03-31-2024 2-view left tibia/fibula x-rays demonstrate maintained reduction of the segmental tibial shaft fracture with intact orthopaedic implants. [facility] RADIOLOGY [facility] Radiology Study observation (narrative) Cindy rai [facility] RICHARD HEAD ([id number]) 1965 M Date Time Provider Department 03/24/24 CARISA BURCH POB1 During your visit today, we recorded the following information about you: Valerie Hammonds 03/24/2024 7:30 AM Signed An order has been attached for signature. thank you, Valerie Hammonds Allergies As of Date: 03/24/2024 (No Known Allergies) Date Reviewed: 03/21/2024 Reviewed by: Shruti Hebert, OT/L - Fully Assessed Reason for Visit: Orders [681] Primary Visit Diagnosis:Complex fracture of tibia, left, closed, initial encounter [S82.292A] Order(s):CONSULT TO HOME HEALTH CARE () [[id number]] Order #: [id number]: 1 Prescriptions as of 03/24/2024 - cholecalciferol, vitamin D3, (VITAMIN D3 ORAL) Take 1 tablet by mouth once daily. - MULTIVITAMIN ORAL Take 1 tablet by mouth once daily. - acetaminophen (TYLENOL) 500 mg tablet Take 2 tablets by mouth every 8 hours as needed for pain for up to 10 days. - aspirin, enteric coated (ASPIRIN, ENTERIC COATED) 81 mg EC tablet Take 1 tablet by mouth two times a day for 14 days. ONCE TWO TIMES A DAY DOSING COMPLETED, THEN OKAY TO RESUME DAILY HOME DOSE - oxyCODONE IR (ROXICODONE) 5 mg immediate release tablet Take 1 tablet by mouth every 6 hours as needed for pain for up to 5 days. - senna (SENOKOT) 8.6 mg tab Take 1 tablet by mouth two times a day as needed for constipation for up to 7 days. - aspirin, enteric coated (ASPIRIN, ENTERIC COATED) 81 mg EC tablet Take 81 mg by mouth once daily. - naproxen (NAPROSYN) 250 mg tablet Take 500 mg by mouth once daily as needed (pain). Patient should start on March 20, 2024. - docosahexaenoic acid/epa (FISH OIL ORAL) Take 2 tablets by mouth once daily. Problem List As Of Date 03/24/2024 Noted Resolved Complex fracture of tibia, left, closed, initia*03/11/2024 03/19/2024 Former smoker [Z87.891] 03/12/2024 Obesity, Class I, BMI 30-34.9 [E66.811] 03/17/2024 Encounter Status:Closed by CARISA UBRCH on 03/24/24 [facility] Meghan 03-20-2024 [facility] Telephone (HCSIND) RICHARD HEAD ([id number]) 1965 M Date Time Provider Department 03/20/24 NING CORRAL HCSIND During your visit today, we recorded the following information about you: Ning Corral, PT 03/20/2024 9:14 PM Signed Dale Burch P.TMaryjane Start of Care performed today, patient is doing well and reports pain is well controlled. Orders state to remove left upper leg bandage on 03/23/24, per discharge paperwork this bandage was applied on 03/18/24. Would it be possible to remove this bandage on 03/24/24 instead of 03/23/24? Dulce, Ning Corral PT, DPT Allergies As of Date: 03/20/2024 (No Known Allergies) Date Reviewed: 03/20/2024 Reviewed by: Ning Corral, PT - Fully Assessed Reason for Visit: Home Care [4073] Cmt: P.T. Start of Care Prescriptions as of 03/20/2024 - cholecalciferol, vitamin D3, (VITAMIN D3 ORAL) Take 1 tablet by mouth once daily. - MULTIVITAMIN ORAL Take 1 tablet by mouth once daily. - acetaminophen (TYLENOL) 500 mg tablet Take 2 tablets by mouth every 8 hours as needed for pain for up to 10 days. - aspirin, enteric coated (ASPIRIN, ENTERIC COATED) 81 mg EC tablet Take 1 tablet by mouth two times a day for 14 days. ONCE TWO TIMES A DAY DOSING COMPLETED, THEN OKAY TO RESUME DAILY HOME DOSE - oxyCODONE IR (ROXICODONE) 5 mg immediate release tablet Take 1 tablet by mouth every 6 hours as needed for pain for up to 5 days. - senna (SENOKOT) 8.6 mg tab Take 1 tablet by mouth two times a day as needed for constipation for up to 7 days. - aspirin, enteric coated (ASPIRIN, ENTERIC COATED) 81 mg EC tablet Take 81 mg by mouth once daily. - naproxen (NAPROSYN) 250 mg tablet Take 500 mg by mouth once daily as needed (pain). Patient should start on March 20, 2024. - docosahexaenoic acid/epa (FISH OIL ORAL) Take 2 tablets by mouth once daily. Problem List As Of Date 03/20/2024 Noted Resolved Complex fracture of tibia, left, closed, initia*03/11/2024 03/19/2024 Former smoker [Z87.891] 03/12/2024 Obesity, Class I, BMI 30-34.9 [E66.811] 03/17/2024 Encounter Status:Closed by NING CORRAL on 03/20/24 [facility] CNPNon 03-19-2024 CNPN Telephone (AGPOB1) RICHARD HEAD ([id number]) 1965 M Date Time Provider Department 03/19/24 CARISA BURCH AGB1 During your visit today, we recorded the following information about you: Mounika Jensen 03/19/2024 4:37 PM Signed Patient asking for a handicap parking placard script and also to make a follow up appointment Mounika Barnett Allergies As of Date: 03/19/2024 (No Known Allergies) Date Reviewed: 03/17/2024 Reviewed by: Chaya De La Rosa RN - Fully Assessed Primary Visit Diagnosis:Complex fracture of tibia, left, closed, initial encounter [S82.292A] Order(s):PARKING FOR HANDICAPPED [[id number]] Order #: [id number] Prescriptions as of 03/24/2024 - cholecalciferol, vitamin D3, (VITAMIN D3 ORAL) Take 1 tablet by mouth once daily. - MULTIVITAMIN ORAL Take 1 tablet by mouth once daily. - acetaminophen (TYLENOL) 500 mg tablet Take 2 tablets by mouth every 8 hours as needed for pain for up to 10 days. - aspirin, enteric coated (ASPIRIN, ENTERIC COATED) 81 mg EC tablet Take 1 tablet by mouth two times a day for 14 days. ONCE TWO TIMES A DAY DOSING COMPLETED, THEN OKAY TO RESUME DAILY HOME DOSE - oxyCODONE IR (ROXICODONE) 5 mg immediate release tablet Take 1 tablet by mouth every 6 hours as needed for pain for up to 5 days. - senna (SENOKOT) 8.6 mg tab Take 1 tablet by mouth two times a day as needed for constipation for up to 7 days. - aspirin, enteric coated (ASPIRIN, ENTERIC COATED) 81 mg EC tablet Take 81 mg by mouth once daily. - naproxen (NAPROSYN) 250 mg tablet Take 500 mg by mouth once daily as needed (pain). Patient should start on March 20, 2024. - docosahexaenoic acid/epa (FISH OIL ORAL) Take 2 tablets by mouth once daily. Problem List As Of Date 03/19/2024 Noted Resolved Complex fracture of tibia, left, closed, initia*03/11/2024 03/19/2024 Former smoker [Z87.891] 03/12/2024 Obesity, Class I, BMI 30-34.9 [E66.811] 03/17/2024 Encounter Status:Closed by CARISA BURCH on 03/20/24 [facility] ([id number]) 1965 M Date Time Provider Department 03/19/24 UMM DAMON During your visit today, we recorded the following information about you: Umm Damon LPN 03/19/2024 9:31 AM Signed Date/Time: 03/19/2024 9:28 AM Spoke with Richard @ phone #: [phone] - Preferred # for contact: [phone] Have you received help from a home care company in the last 60 days? No Are you agreeable to [facility] services? Yes What address will we be seeing you at? [address] [place] [id number] Do you have any upcoming appointments or things we need to schedule around? No Do you have a teachable CG or can you manage your care independently? SO Have you received the flu shot? Yes If so, when and where? [facility]. Allergies As of Date: 03/19/2024 (No Known Allergies) Date Reviewed: 03/17/2024 Reviewed by: Chaya De La Rosa RN - Fully Assessed Reason for Visit: Home Care [4073] Cmt: Confirmation call Prescriptions as of 03/19/2024 - acetaminophen (TYLENOL) 500 mg tablet Take 2 tablets by mouth every 8 hours as needed for pain for up to 10 days. - aspirin, enteric coated (ASPIRIN, ENTERIC COATED) 81 mg EC tablet Take 1 tablet by mouth two times a day for 14 days. ONCE TWO TIMES A DAY DOSING COMPLETED, THEN OKAY TO RESUME DAILY HOME DOSE - oxyCODONE IR (ROXICODONE) 5 mg immediate release tablet Take 1 tablet by mouth every 6 hours as needed for pain for up to 5 days. - senna (SENOKOT) 8.6 mg tab Take 1 tablet by mouth two times a day as needed for constipation for up to 7 days. - aspirin, enteric coated (ASPIRIN, ENTERIC COATED) 81 mg EC tablet Take 81 mg by mouth once daily. - naproxen (NAPROSYN) 250 mg tablet Take 500 mg by mouth once daily as needed. - docosahexaenoic acid/epa (FISH OIL ORAL) Take 2 tablets by mouth once daily. Facility-Administered Medications as of 03/19/2024 - aspirin, enteric coated 81 mg tab(s) - calcium-cholecalcifer ol (D3) 2 tablet tab(s) (OSCAL+D 250) - senna 17.2 mg tab(s) (SENOKOT) - NaCl 0.9% iv flush bag - ondansetron 4 mg tab(s) (ZOFRAN) - ondansetron (PF) 4 mg injection (ZOFRAN) - morphine 2 mg injection - acetaminophen 1,000 mg tab(s) (TYLENOL) - oxyCODONE IR 5-10 mg tab(s) (ROXICODONE) Problem List As Of Date 03/19/2024 Noted Resolved Complex fracture of tibia, left, closed, initia*03/11/2024 03/19/2024 Former smoker [Z87.891] 03/12/2024 Obesity, Class I, BMI 30-34.9 [E66.811] 03/17/2024 Encounter Status:Closed by UMM DAMON on 03/19/24 Normal [facility] NUTRITIONon 03-19-2024 NUTRITION HNO ID: [id number] Author: JOHANNA CANALES DTR Service: Nutrition Therapy Author Type: Bioinformatician Type: Nutrition Filed: 03/19/2024 13:55 Note Text: NUTRITION THERAPY APPLIANCE FIXER NOTE SERVICE DATE: 03/19/2024 SERVICE TIME: 1016 Visit Type: Length of Stay Patient reports no current nutrition related issues or concerns. Plan of Care: Follow-Up: Tech Reassessment Nursing Admission Assessment Malnutrition Score: 0 Nutrition Intake: Diet Orders (From admission, onward) Start Ordered 03/12/24 1515 DIET REGULAR START NOW 03/12/24 1501 Average intake over: Unable to determine Appetite: Good (Po intake 80-100%) GI Symptoms: None Anthropometrics: Body mass index is 31.89 kg/m?. Usual Weight: 87.1 kg (192 lb) Weight Change: Increased (post surgery fluid shift) MNT Billing: $ Routine Care : 1-15 minutes SIGNATURE: Johanna Canales DTR PATIENT NAME: Richard Head DATE: March 19, 2024 TIME: 1:54 PM Normal [facility] THERAPY NTon 03-19-2024 THERAPY NT HNO ID: [id number] Author: PILAR JARVIS PTA Service: Physical Therapy Author Type: Agriculturist Type: Therapy (PT/OT/Speech/Resp) Filed: 03/19/2024 10:47 Note Text: Attestation signed by Marlene Gale PT at 03/19/2024 12:00 PM I reviewed and agree with the documentation corresponding to this therapy visit. SIGNATURE: Marlene Gale PT DATE: March 19, 2024 TIME: 12:00 PM Physical Therapy Treatment Summary SERVICE DATE: 03/19/2024 SERVICE TIME: 1012 to 1035 ROOM: [place] [address] PT 6 Clicks Score: 20 DISCHARGE RECOMMENDATIONS Home PT Recommended Discharge Disposition Comments: patient requiring decreased levels of assistance with all mobility tasks. patient able to negotiate stairs at minimal assist level. patient has progressed home going with assist from girlfriend and homePT to address all remaining functional deficits. Recommended Discharge Disposition Due to: Patient is functioning at a level safe for discharge home with the available level of assist. Recommended Discharge Equipment: Wheeled Walker (crutched issued for stairs only at home) ASSESSMENT Response to Therapy Interventions: Good Participation in Activities Patient continues to require decreased levels of overall assist with all mobility. Patient able to safely negotiate stairs for home going. Ok to d/c home today from PT standpoint. continue to recommend home PT to improve strength, ROM, balance,endurance, normalize gait pattern and improved safety and performance in the home back to prior level of function. Additional personnel present during visit: Padmaja Mccurdy PRECAUTIONS Fall Risk, Weight Bearing Restrictions Left Lower Extremity Weight Bearing Status: WBAT CURRENT HOSPITAL COURSE Pt presents at [facility], tree fell on him resulting in proximal tibia and fibular head fx. 03/12 L IM nail, WBAT Relevant Past Medical History: NA HOME LIVING Patient Lives With: Significant Other Assistance Available: 24-Hour Entry To Home: Stairs, With Rail Number Of Stairs Into Home: 4 Number Of Stairs To Bed/Bath: 0 Tub/Shower Type: tub/shower Laundry: main level' s/o or family can do PRIOR FUNCTIONAL LEVEL Within Functional Limits Pt indpendent with ADLs/IADLs/working SUBJECTIVE pleasant and agreeable to PT session THERAPY DIAGNOSIS Reduced mobility-other, Decreased activities of daily living (ADL), Unsteadiness on feet, Abnormalities of gait and mobility-other, General symptoms and signs-other TREATMENT INTERVENTIONS Therapeutic Activity (78574), Gait Training (37764) Therapeutic Activity (92650) Treatment Minutes: 8 $ Therapeutic Activity (92527) Billed Units: 1 unit cuing for proper safety with transfers to walker and trial with crutches. Cuing for proper standing at commode to urinate using walker overtop of commode if requiring UE support. Patient performing handwashing without UE support on walker. Positioned for comfort at end of session. Gait Training (48685) Treatment Minutes: 15 $ Gait Training (88224) Billed Units: 1 unit cuing for proper posture, heel strike, step length, walker management, crutch management with trial, and proper techniques with negotiating stairs. Walker delivered to room--walker set for patient during session. Timed Code Treatment (minutes): 23 Skilled Treatment Time (minutes): 23 TRAINING AND EDUCATION PROVIDED Assistive Device Use, Bed Mobility, Positioning, Transfers, Stair Navigation THERAPEUTIC SKILLS USED Cues for Sequencing/Proper Technique for Activity, Cuing Tactile, Cuing Verbal, Cuing Visual, Movement Facilitation, Postural Alignment Correction, Physical Assist FUNCTIONAL STATUS mobility performed during session in bold, other mobility completed during prior session and may no longer be correct or appropriate to complete. Bed Mobility Rolling: Independent Supine To Sit: Independent Sit to Supine: Independent Scooting: Independent Transfers Sit To Stand: Contact Guard Assistance, Additional Information cuing to slide LLE out for pain relief, proper UE support, powering up with RLE Stand To Sit: Contact Guard Assistance cuing to slide LLE out, proper UE support, eccentric control Bed to Chair Contact Guard Assistance Bed To Chair Transfer Type: Stepping Bed To Chair Transfer Equipment: Gait Belt, Wheeled Walker Gait Contact Guard Assistance cuing for proper posture, heel strike (or at least foot flat on LLE), proper walker management Gait Device: Wheeled Walker General Deviations/Observatio ns: Antalgic gait, Sundar decreased, Difficulty changing direction/turning, Flexed trunk posture, Non-functional gait speed, Step length decreased, UE weight bearing on assistive device excessive Gait Distance (feet): 20'x2 with walker, 20' wit (more content not included)... Normal [facility] THERAPY NT HNO ID: [id number] Author: CAMELIA LAW OTR/Melinda Service: Occupational Therapy Author Type: Occupational Therapist Type: Therapy (PT/OT/Speech/Resp) Filed: 03/19/2024 09:31 Note Text: Occupational Therapy Treatment Summary SERVICE DATE: 03/19/2024 SERVICE TIME: 846 to 910 ROOM: [place] [address] OT 6 Clicks Score: 22 DISCHARGE RECOMMENDATIONS Home OT Recommended Discharge Disposition Due to: Patient is functioning at a level safe for discharge home with the available level of assist. ASSESSMENT Response to Therapy Interventions: Good Participation in Activities Patient progresing well and is now able to return home with home care. POC updated to reflect progress, as patient meeting several goals. PRECAUTIONS Fall Risk, Weight Bearing Restrictions Left Lower Extremity Weight Bearing Status: WBAT CURRENT HOSPITAL COURSE Pt presents at [facility] transfer, tree fell on him resulting in proximal tibia and fibular head fx. 03/12 L IM nail, WBAT Relevant Past Medical History: NA HOME LIVING Patient Lives With: Significant Other Assistance Available: 24-Hour Entry To Home: Stairs, With Rail Number Of Stairs Into Home: 4 Number Of Stairs To Bed/Bath: 0 Tub/Shower Type: tub/shower Laundry: main level' s/o or family can do PRIOR FUNCTIONAL LEVEL Within Functional Limits Pt indpendent with ADLs/IADLs/working Baseline Cognition: Oriented to self, Oriented to place, Oriented to time, Oriented to situation SUBJECTIVE agreeable to session COGNITION Responsiveness: Alert Follows Commands: 2-step Commands THERAPY DIAGNOSIS Decreased activities of daily living (ADL), Reduced mobility-other, Muscle Weakness (generalized), Unsteadiness on feet, Abnormalities of gait and mobility-other TREATMENT INTERVENTIONS Self Alf Management (21706) Timed Code Treatment (minutes): 24 Skilled Treatment Time (minutes): 24 Self Alf Management (48243) Treatment Minutes: 24 $ Self Alf Management (13806) Billed Units: 2 units TRAINING AND EDUCATION PROVIDED Assistive Device Use, Bed Mobility, Benefits of In-Hospital Mobility, Discharge Planning, Disease Specific Education, Functional Mobility Involving ADLs, Grooming Tasks, Lower Extremity Dressing, Precautions/Restricti ons, Role of Occupational Therapy, Safety/Judgment, Sitting Balance to Improve [place] with ADLs/Self-Care, Standing Balance to Improve [place] with ADLs/Self-Care, Toileting , Transfer - Car, Transfer - Sit to Stand, Transfer - Toilet/Commode, Transfer - Tub Shower THERAPEUTIC SKILLS USED Activity Dosing, Cues for Sequencing/Proper Technique for Activity, Cuing Tactile, Cuing Verbal, Cuing Visual, Physical Assist, Therapeutic Use of Self FUNCTIONAL STATUS Activities of Daily Living Assist Level Additional Information Feeding Independent Grooming Stand By Assistance Challenged patient to stand at the sink for >5 minutes to complete full grooming task, min direction for proper placement on walker. Bathing Upper Body Stand By Assistance Bathing Lower Body Minimal Assistance Dressing Upper Body Stand By Assistance Dressing Lower Body Minimal Assistance Facilitated donning/doffing of briefs during toileting activity. Patient mostly using one hand while the other stabilizes balance with use of walker. Toileting Stand By Assistance Completed while seated for safety. Mobility Assist Level Additional Information Bed Mobility Supine To Sit: Contact Guard Assistance Sit To Supine: Contact Guard Assistance Sit to Stand Contact Guard Assistance Cues for hand placement. Stand to Sit Contact Guard Assistance Bed to Chair Toilet/Commode Contact Guard Assistance Min direction for hand and body placement and safety with use of grab bar. Shower Provided demo and education on how to complete shower transfer with use of seat. Instructed on how to bath surgical leg safely. Functional Mobility Contact Guard Assistance, Additional Information Functional Mobility Device: Wheeled Walker functional mobility to bathroom and back- min direction for walker management and fall prevention. Provided demo and education on how to complete car transfer with given injuries. Verbalized good understanding. GOALS Grooming with: Independent Upper Body Bathing with: Independent Upper Body Dressing with: Independent Lower Body Bathing with: Modified Independent Lower Body Dressing with: Modified Independent Toilet Hygiene with: Independent Toilet Transfer with: Supervision Tolerate (minutes of functional activity): (goal met) Functional Activity with: Supervision Additional Goal 1: goal met Transfer: goal met Progress Toward Goals: Progressing as expected Rehab Potential: Good PLAN OT Frequency: 2 Times Per Week Treatment Interventions: Education, Self Care/Home Management, Balance Training, Functional Mobility Training SIGNATURE: DIMITRI Gan/Melinda PATIENT NAME: Richard Rai (more content not included)... [facility] HNO ID: [id number] Author: CARISA BURCH MD Service: Orthopaedic Surgery Author Type: Physician Type: Discharge Summary Filed: 03/20/2024 10:32 Note Text: ORTHOPEDIC SURGERY DISCHARGE SUMMARY ADMISSION DATE: 03/11/2024 DISCHARGE DATE: 03/19/2024 Attending Physician: Carisa Burch MD Admitting Diagnosis: tibia and fibula fracture Discharge Diagnosis: Same as admitting Additional Diagnoses: ACTIVE PROBLEM LIST Complex Fracture of Tibia, Left, Closed, Initial Encounter Former Smoker Obesity, Class I, Bmi 30-34.9 Surgeries During Hospitalization: Procedure(s) (LRB): INSERTION NAIL / BETTIE INTRAMEDULLARY TIBIA (Left) CLOSED REDUCTION PROXIMAL FIBULA OR SHAFT FX. W/ MANIPULATION Consultations: Physical Therapy Case Management Occupational Therapy Hospital Course: The patient is a 58 year old male who has been followed by Carisa Gomez MD, MD. It was determined he would benefit from surgery. The procedure, its risks, benefits, and potential complications were discussed in detail with the patient or POA prior to surgery. Understanding of all topics was conveyed by the patient or POA, and consent was given for surgery. The patient was emergently admitted through the Emergency Department to [facility] on 03/11/2024. Surgery was scheduled and on 03/12/2024 he underwent a Procedure(s) (LRB): INSERTION NAIL / BETTIE INTRAMEDULLARY TIBIA (Left) CLOSED REDUCTION PROXIMAL FIBULA OR SHAFT FX. W/ MANIPULATION. The procedure was tolerated well and he was sent to the post operative recovery room in stable condition, where he also did well. He was subsequently sent to his hospital room for postoperative management. Once on the floor his postoperative course was unremarkable and he did well. His diet was advanced which he tolerated. His pain was well controlled. He worked with Physical and Occupational Therapy who recommended he be discharged to acute rehab. He remained afebrile with stable vital signs throughout his stay. He was stable for discharge on POD#7. Complete and comprehensive discharge instructions were provided to the patient as well as necessary prescriptions. The patient had no further questions and was advised to call with any questions, concerns, or problems. Patient was hemodynamically stable postoperatively. Relevant labs included: Hemoglobin (g/dL) Date Value 03/14/2024 12.2 (L) 03/13/2024 12.8 (L) 03/11/2024 14.2 Hematocrit (%) Date Value 03/14/2024 36.7 (L) 03/13/2024 39.3 03/11/2024 42.5 Discharge Antibiotics: None Prior to surgery the patient was treated with antibiotics and continued with antibiotics 24 hours postoperatively DVT Prophylaxis: Sequential Compression Devices and Aspirin to reduce risk of bleeding Complications: Continued throughout the hospital course without complications. Surgical Site Care: Dressing changed on post op day #7, 03/18/2024. Remove on 03/23/2024. Once dressing removed okay to shower and wash with soap and water. No creams, lotions, ointments or peroxide. Reapply new 4 x 4 over incisions to lower leg with urbano wrap. Above knee incision can be left open to air. Weight Bearing: WBAT LLE Diet: Regular diet Patient Condition @ Discharge: Stable Discharge Disposition: Acute Rehabilitation Facility The patient was instructed to follow-up in FOLLOW UP WITH DR. BURCH IN 2 WEEKS. CALL FOR SCHEDULED APPOINTMENT Highest Readmission Risk Score: 10 The 30 day readmissions risk score is derived from an internally validated risk model which evaluates patient level characteristics, utilization history, medication orders and lab results up until the day of discharge. Patients with a score of 40 or above are considered highest risk for readmission. Specific patient level drivers will be listed at the bottom of the summary. The 30 day readmissions risk score is derived from an internally validated risk model which evaluates patient level characteristics, utilization history, medication orders and lab results up until the day of discharge. Patients with a score of 40 or above are considered highest risk for readmission. Specific patient level drivers will be listed at the bottom of the summary. Discharge Medications: Medication List START taking these medications acetaminophen 500 mg tablet Commonly known as: TYLENOL Take 2 tablets by mouth every 8 hours as needed for pain for up to 10 days. oxyCODONE IR 5 mg immediate release tablet Commonly known as: ROXICODONE Take 1 tablet by mouth every 6 hours as needed for pain for up to 5 days. senna 8.6 mg Tab Commonly known as: SENOKOT Take 1 tablet by mouth two times a day as needed for constipation for up to 7 days. CHANGE how you take these medications * aspirin, enteric coated 81 mg EC tablet Commonly known as: ASPIRIN, ENTERIC COATED What changed: Another medication with the same name was added. Make sure you understand how and when to nhung (more content not included)... Normal [facility] THERAPY NTon 03-18-2024 THERAPY NT HNO ID: [id number] Author: PILAR JARVIS PTA Service: Physical Therapy Author Type: Agriculturist Type: Therapy (PT/OT/Speech/Resp) Filed: 03/18/2024 14:54 Note Text: Attestation signed by Marlene Gale PT at 03/18/2024 4:09 PM I reviewed and agree with the documentation corresponding to this therapy visit. SIGNATURE: Marlene Gale PT DATE: March 18, 2024 TIME: 4:09 PM Physical Therapy Treatment Summary SERVICE DATE: 03/18/2024 SERVICE TIME: 1418 to 1444 ROOM: [place] [address] PT 6 Clicks Score: 20 DISCHARGE RECOMMENDATIONS Home PT Recommended Discharge Disposition Comments: patient requiring decreased levels of assistance with all mobility tasks. patient able to negotiate stairs at minimal assist level. patient has progressed home going with assist from girlfriend and homePT to address all remaining functional deficits. Recommended Discharge Disposition Due to: Patient is functioning at a level safe for discharge home with the available level of assist. Recommended Discharge Equipment: Wheeled Walker (crutched issued for stairs only at home) ASSESSMENT Response to Therapy Interventions: Good Participation in Activities, Improved Tolerance for Activity, On-Track to Achieve Discharge Goals, Pain Patient with improved gait distances, ability to negotiate stairs with minimal assistance. Patient has progressed to home going with assist from significant other. continue to recommend home PT to improve strength, ROM, balance,endurance, normalize gait pattern and improved safety and performance in the home back to prior level of function. Discussed recommendation changes with care management. Patient requesting staying until tomorrow, so home cane be set up better. Additional personnel present during visit: Padmaja Mccurdy PRECAUTIONS Fall Risk, Weight Bearing Restrictions Left Lower Extremity Weight Bearing Status: WBAT CURRENT HOSPITAL COURSE Pt presents at [place] transfer, tree fell on him resulting in proximal tibia and fibular head fx. 10/16 L IM nail, WBAT Relevant Past Medical History: NA HOME LIVING Patient Lives With: Significant Other Assistance Available: 24-Hour Entry To Home: Stairs, With Rail Number Of Stairs Into Home: 4 Number Of Stairs To Bed/Bath: 0 Tub/Shower Type: tub/shower Laundry: main level' s/o or family can do PRIOR FUNCTIONAL LEVEL Within Functional Limits Pt indpendent with ADLs/IADLs/working SUBJECTIVE pleasant and agreeable to PT session THERAPY DIAGNOSIS Reduced mobility-other, Decreased activities of daily living (ADL), Unsteadiness on feet, Abnormalities of gait and mobility-other, General symptoms and signs-other TREATMENT INTERVENTIONS Therapeutic Activity (08865), Gait Training (43478) Therapeutic Activity (33479) Treatment Minutes: 9 $ Therapeutic Activity (75090) Billed Units: 1 unit cuing for proper movements/techniques with bed mobility, scooting, transfers, LE HEP issued and reviewed. Positioned for comfort at end of session. Gait Training (70881) Treatment Minutes: 17 $ Gait Training (85561) Billed Units: 1 unit cuing for proper posture, step length, promoting WB on LLE, proper walker management, proper safety/technique negotiating stair with rail/crutch. Crutches issued for use on stairs at home. Timed Code Treatment (minutes): 26 Skilled Treatment Time (minutes): 26 TRAINING AND EDUCATION PROVIDED Assistive Device Use, Bed Mobility, Exercise Program, Gait Pattern, Reduction of Deviations, Positioning, Transfers, Stair Navigation THERAPEUTIC SKILLS USED Cues for Sequencing/Proper Technique for Activity, Cuing Tactile, Cuing Verbal, Cuing Visual, Movement Facilitation, Physical Assist, Postural Alignment Correction FUNCTIONAL STATUS mobility performed during session in bold, other mobility completed during prior session and may no longer be correct or appropriate to complete. Bed Mobility Rolling: Independent Supine To Sit: Independent Sit to Supine: Stand By Assistance Scooting: Independent Transfers Sit To Stand: Contact Guard Assistance, Additional Information cuing to slide LLE out for pain relief, proper UE support, powering up with RLE Stand To Sit: Contact Guard Assistance cuing to slide LLE out, proper UE support, eccentric control Bed to Chair Contact Guard Assistance Bed To Chair Transfer Type: Stepping Bed To Chair Transfer Equipment: Gait Belt, Wheeled Walker Gait Contact Guard Assistance, Additional Information Gait Device: Wheeled Walker General Deviations/Observatio ns: Antalgic gait, Sundar decreased, Difficulty changing direction/turning, Flexed trunk posture, Non-functional gait speed, Step length decreased, UE weight bearing on assistive device excessive Gait Distance (feet): 50' (more content not included)... Normal [facility] THERAPY NTon 03-17-2024 THERAPY NT HNO ID: [id number] Author: PILAR JARVIS PTA Service: Physical Therapy Author Type: Agriculturist Type: Therapy (PT/OT/Speech/Resp) Filed: 03/17/2024 12:07 Note Text: Attestation signed by Marlene Gale PT at 03/17/2024 12:08 PM I reviewed and agree with the documentation corresponding to this therapy visit. SIGNATURE: Marlene Gale, PT DATE: March 17, 2024 TIME: 12:08 PM Physical Therapy Treatment Summary SERVICE DATE: 03/17/2024 SERVICE TIME: 1114 to 1144 ROOM: [place] [address] PT 6 Clicks Score: 17 DISCHARGE RECOMMENDATIONS Acute Rehab Recommended Discharge Disposition Comments: Pt is functioning far below baseline and would benefit from skilled care in acute rehab setting. Wants location in [facility] area; if not applicable then SNF/subacute is appropriate. Recommended Discharge Disposition Due to: Functional deficits requiring ongoing therapy service prior to discharge home., Patient requires active, intensive rehabilitation by multiple therapy disciplines. Anticipate the patient will tolerate 3 hours of therapy per day., Requires multiple therapy disciplines Recommended Discharge Equipment: Cane, Wheeled Walker, Shower Chair, Grab Bars-Shower, Elevated Toilet Seat ASSESSMENT Response to Therapy Interventions: Good Participation in Activities Patient continues to require increased levels of assist with all mobility tasks. Patient continues to be well below baseline functioning at this time. Would benefit from intensive rehab to maximize functional return back to baseline in a timely manner. continue to recommend acute care to improve strength, ROM, balance,endurance, normalized gait pattern, and independence with mobility tasks to prior level of function for safe return to home activity. Additional personnel present during visit: Padmaja Mccurdy PRECAUTIONS Fall Risk, Weight Bearing Restrictions Left Lower Extremity Weight Bearing Status: WBAT CURRENT HOSPITAL COURSE Pt presents at [place] transfer, tree fell on him resulting in proximal tibia and fibular head fx. 10/16 L IM nail, WBAT Relevant Past Medical History: NA HOME LIVING Patient Lives With: Significant Other Assistance Available: 24-Hour Entry To Home: Stairs, With Rail Number Of Stairs Into Home: 4 Number Of Stairs To Bed/Bath: 0 Tub/Shower Type: tub/shower Laundry: main level' s/o or family can do PRIOR FUNCTIONAL LEVEL Within Functional Limits Pt indpendent with ADLs/IADLs/working SUBJECTIVE pleasant and agreeable to PT session THERAPY DIAGNOSIS Reduced mobility-other, Decreased activities of daily living (ADL), Unsteadiness on feet, Abnormalities of gait and mobility-other, General symptoms and signs-other TREATMENT INTERVENTIONS Therapeutic Activity (34097), Gait Training (46440) Therapeutic Activity (30157) Treatment Minutes: 7 $ Therapeutic Activity (57659) Billed Units: 0 units cuing/assist for proper movements/techniques with bed mobility, scooting, transfers. Positioned for comfort at end of session. Gait Training (33507) Treatment Minutes: 23 $ Gait Training (43643) Billed Units: 2 units cuing/assist with posture, balance, proper WB on LLE, heel strike (or at least foot flat on LLE), proper UE support, walker management, trial on stairs with rail/crutch. Slow movements throughout, increased time needed to complete gait training tasks. Timed Code Treatment (minutes): 30 Skilled Treatment Time (minutes): 30 TRAINING AND EDUCATION PROVIDED Assistive Device Use, Bed Mobility, Gait Pattern, Reduction of Deviations, Positioning, Transfers, Stair Navigation THERAPEUTIC SKILLS USED Cues for Sequencing/Proper Technique for Activity, Cuing Tactile, Cuing Verbal, Cuing Visual, Movement Facilitation, Physical Assist, Postural Alignment Correction FUNCTIONAL STATUS mobility performed during session in bold, other mobility completed during prior session and may no longer be correct or appropriate to complete. Bed Mobility Rolling: Independent Supine To Sit: Contact Guard Assistance Sit to Supine: Stand By Assistance Scooting: Contact Guard Assistance Transfers Sit To Stand: Contact Guard Assistance cuing to slide LLE out for pain relief, proper UE support, powering up with RLE Stand To Sit: Contact Guard Assistance cuing to slide LLE out, proper UE support, eccentric control Bed to Chair Minimal Assistance Bed To Chair Transfer Type: Stepping Bed To Chair Transfer Equipment: Gait Belt, Wheeled Walker Gait Minimal Assistance cuing for proper posture, heel strike (or at least foot flat on LLE), proper walker management Gait Device: Wheeled Walker General Deviations/Observatio ns: Antalgic gait, Sundar decreased, Difficulty changing direction/turning, Flexed trunk posture, (more content not included)... Normal [facility] THERAPY NTon 03-16-2024 THERAPY NT HNO ID: [id number] Author: ALFONSO MATOS PT Service: Physical Therapy Author Type: Physical Therapist Type: Therapy (PT/OT/Speech/Resp) Filed: 03/16/2024 15:03 Note Text: Physical Therapy Treatment Summary SERVICE DATE: 03/16/2024 SERVICE TIME: 1407 to 1447 ROOM: [place] [address] PT 6 Clicks Score: 18 DISCHARGE RECOMMENDATIONS Acute Rehab Recommended Discharge Disposition Comments: Pt is functioning far below baseline and would benefit from skilled care in acute rehab setting. W[facility] location in [place]; if not applicable then SNF/subacute is appropriate. Recommended Discharge Disposition Due to: Functional deficits requiring ongoing therapy service prior to discharge home., Patient requires active, intensive rehabilitation by multiple therapy disciplines. Anticipate the patient will tolerate 3 hours of therapy per day., Requires multiple therapy disciplines Recommended Discharge Equipment: Cane, Wheeled Walker, Shower Chair, Grab Bars-Shower, Elevated Toilet Seat ASSESSMENT Response to Therapy Interventions: Good Participation in Activities, Pain Patient continues to progress well with PT goals, able to ambulate up to 35 feet with minimal assistance with walker, continues to put minimal weight through left lower extremity however with improving sundar. Trialed curb step with patient requiring min-moderate assistance. Continue to recommend ongoing therapies in an acute inpatient rehabilitation facility to maximize his functional outcomes. Will continue to follow. PRECAUTIONS Fall Risk, Weight Bearing Restrictions Left Lower Extremity Weight Bearing Status: WBAT CURRENT HOSPITAL COURSE Pt presents at [place] transfer, tree fell on him resulting in proximal tibia and fibular head fx. 1016 L IM nail, WBAT Relevant Past Medical History: NA HOME LIVING Patient Lives With: Significant Other Assistance Available: 24-Hour Entry To Home: Stairs, With Rail Number Of Stairs Into Home: 4 Number Of Stairs To Bed/Bath: 0 Tub/Shower Type: tub/shower Laundry: main level' s/o or family can do PRIOR FUNCTIONAL LEVEL Within Functional Limits Pt indpendent with ADLs/IADLs/working SUBJECTIVE alert, pleasant, motivated to get up with PT. noted he had already gotten up to the bathroom once but felt the need to have another bowel movement THERAPY DIAGNOSIS Reduced mobility-other, Decreased activities of daily living (ADL), Unsteadiness on feet, Abnormalities of gait and mobility-other, General symptoms and signs-other TREATMENT INTERVENTIONS Therapeutic Exercise (17601), Therapeutic Activity (82138), Gait Training (92348) Therapeutic Exercise (98787) Treatment Minutes: 10 $ Therapeutic Exercise (66766) Billed Units: 1 unit Facilitated the following exercises on left with verbal/tactile cues for completion through the full available range with education on functional benefits of each exercise including: -1x10 repetitions ankle pumps -1x8 repetitions quadriceps sets -1x5 repetitions gluteal sets -1x10 repetitions heel slides -1x10 repetitions short arc quads -1x10 repetitions hip abduction Handout provided and reviewed with patient for improved carryover outside of therapy sessions. Therapeutic Activity (56065) Treatment Minutes: 10 $ Therapeutic Activity (83290) Billed Units: 1 unit Facilitated mobility as noted below. Patient able to complete toilet transfer with contact guard assistance-minimal assistance, supervision for posterior pericares. Gait Training (48611) Treatment Minutes: 20 $ Gait Training (23120) Billed Units: 1 unit Progressed ambulation with trial of curb step as noted below. Timed Code Treatment (minutes): 40 Skilled Treatment Time (minutes): 40 TRAINING AND EDUCATION PROVIDED Assistive Device Use, Bed Mobility, Benefits of In-Hospital Mobility, Discharge Planning, Exercise Program, Gait Pattern, Reduction of Deviations, Role of Physical Therapy, Transfers THERAPEUTIC SKILLS USED Activity Dosing, Cues for Sequencing/Proper Technique for Activity, Cuing Verbal, Cuing Visual, Movement Facilitation, Facilitation of Joint Range of Motion, Teach-Back for Education FUNCTIONAL STATUS - .akccur Bed Mobility Rolling: Independent Supine To Sit: Contact Guard Assistance, Additional Information HOB elevated, increased time and effort Sit to Supine: Stand By Assistance Scooting: Contact Guard Assistance Transfers Sit To Stand: Contact Guard Assistance, Additional Information cuing to slide LLE out for pain relief, proper UE support, powering up with RLE Stand To Sit: Contact Guard Assistance, Additional Information cuing to slide LLE out, proper UE support, eccentric control Bed to Chair Minimal Assistance, Additional Information Bed To Chair Transfer Type: Stepping Bed To Chair Transfer Equipment: Gait Belt, Wheeled Walker Gait Minimal Assistance, Contact Guard Assistance, Additional Information cues for (more content not included)... Normal [facility] Basic metabolic 2000 panelon 03-14-2024 Anion gap [Moles/Vol] 6 mmol/L Low 8-15 [facility] Comment on above: Order Comment: Speci men Type: BLOOD SPECIMEN Ordering Facility: [facility] Address: [address] [place] [address] Performed By: #### 5 7021-8 #### [facility] CLIA [id number] [address] [place] [address] [place] Calcium [Mass/Vol] 8.4 mg/dL Low 8.5-10.2 [facility] Comment on above: Order Comment: Speci men Type: BLOOD SPECIMEN Ordering Facility: [facility] Address: [address] [place] [address] Performed By: #### 5 7021-8 #### [facility] CLIA [id number] [address] [place] Chloride [Moles/Vol] 107 mmol/L Normal 98-107 [facility] Comment on above: Order Comment: Speci men Type: BLOOD SPECIMEN Ordering Facility: [facility] Address: [address] [place] [address] Performed By: #### 5 7021-8 #### [facility] CLIA [id number] [address] [place] CO2 [Moles/Vol] 25 mmol/L Normal 22-30 [facility] Comment on above: Order Comment: Speci men Type: BLOOD SPECIMEN Ordering Facility: [facility] Address: [address] [place] [address] Performed By: #### 5 7021-8 #### [facility] CLIA [id number] [address] Creatinine [Mass/Vol] 0.86 mg/dL Normal 0.73-1.22 [facility] Comment on above: Order Comment: Speci men Type: BLOOD SPECIMEN Ordering Facility: [facility] Address: [address] [place] [address] Performed By: #### 5 7021-8 #### [facility] CLIA [id number] [address] [place] [address] Creatinine and Glomerular filtration rate.predicted panel (S/P/Bld) 100 mL/min/1.73m??? Normal >=60 [facility] Comment on above: Order Comment: Speci men Type: BLOOD SPECIMEN Ordering Facility: [facility] Address: [address] [place] [address] Result Comment: Angela mated Glomerular Filtration Rate (eGFR) is calculated using the 2020 CKD-EPI creatinine equation. This equation utilizes serum creatinine, sex, and age as parameters. The creatinine assay has traceable calibration to isotope dilution-mass spectrometry. Refer to KDIGO guidelines for clinical interpretation. In patients with unstable renal function, e.g. those with acute kidney injury, the eGFR may not accurately reflect actual GFR. Performed By: #### 5 7021-8 #### [facility] CLIA [id number] [address] [place] [address] [place] Glucose [Mass/Vol] 88 mg/dL Normal 74-99 [facility] Comment on above: Order Comment: Patrick rojas Type: BLOOD SPECIMEN Ordering Facility: [facility] Address: [address] [place] [address] Result Comment: The [place] Diabetes Association (ADA) provides guidance for cutoff values for fasting glucose and random glucose. The ADA defines fasting as no caloric intake for at least 8 hours. Fasting plasma glucose results between 100 to 125 mg/dL indicate increased risk for diabetes (prediabetes). Fasting plasma glucose results greater than or equal to 126 mg/dL meet the criteria for diagnosis of diabetes. In the absence of unequivocal hyperglycemia, results should be confirmed by repeat testing. In a patient with classic symptoms of hyperglycemia or hyperglycemic crisis, random plasma glucose results greater than or equal to 200 mg/dL meet the criteria for diagnosis of diabetes. Reference: Standards of Medical Care in Diabetes 2016, [place] Diabetes Association. Diabetes Care. 2016.39(Suppl 1). Performed By: #### 5 7021-8 #### [facility] CLIA [id number] [address] [place] [address] [place] Potassium [Moles/Vol] Normal [facility] Comment on above: Order Comment: Patrick rojas Type: BLOOD SPECIMEN Ordering Facility: [facility] Address: [address] [place] [address] Result Comment: Unab le to assay due to interference from hemolysis. Suggest reorder as clinically indicated. Performed By: #### 5 7021-8 #### [facility] CLIA [id number] [address] [place] [address] [place] Sodium [Moles/Vol] 138 mmol/L Normal 136-144 [facility] Comment on above: Order Comment: Patrick rojas Type: BLOOD SPECIMEN Ordering Facility: [facility] Address: [address] [place] [address] Performed By: #### 5 7021-8 #### [facility] CLIA [id number] [address] [place] [address] [place] Urea nitrogen [Mass/Vol] 15 mg/dL Normal 9-24 [facility] Comment on above: Order Comment: Speci men Type: BLOOD SPECIMEN Ordering Facility: [facility] Address: [facility] [place] [address] Performed By: #### 5 7021-8 #### [facility] CLIA [id number] [address] CBC panel Auto (Bld)on 03-14 Erythrocyte distribution width (RBC) [Ratio] 13.5 % Normal 11.5-15.0 [facility] Comment on above: Order Comment: Speci men Type: BLOOD SPECIMEN Ordering Facility: [facility] Address: [address] [place] [address] Performed By: #### 5 8410-2 #### [facility] CLIA [id number] [address] Hematocrit (Bld) [Volume fraction] 36.7 % Low 39.0-51.0 [facility] Comment on above: Order Comment: Speci men Type: BLOOD SPECIMEN Ordering Facility: [facility] Address: [address] [place] [address] Performed By: #### 5 8410-2 #### [facility] CLIA [id number] [address] Hemoglobin (Bld) [Mass/Vol] 12.2 g/dL Low 13.0-17.0 [facility] Comment on above: Order Comment: Speci men Type: BLOOD SPECIMEN Ordering Facility: [facility] Address: [address] [place] [address] Performed By: #### 5 8410-2 #### [facility] CLIA [id number] [address] MCH (RBC) [Entitic mass] 30.9 pg Normal 26.0-34.0 [facility] Comment on above: Order Comment: Speci men Type: BLOOD SPECIMEN Ordering Facility: [facility] Address: [address] [place] [address] Performed By: #### 5 8410-2 #### [facility] CLIA [id number] [address] MCHC (RBC) [Mass/Vol] 33.2 g/dL Normal 30.5-36.0 [facility] Comment on above: Order Comment: Speci men Type: BLOOD SPECIMEN Ordering Facility: [facility] Address: [address] [place] [address] Performed By: #### 5 8410-2 #### [facility] CLIA [id number] [address] MCV (RBC) [Entitic vol] 92.9 fL Normal 80.0-100.0 [facility] Comment on above: Order Comment: Speci men Type: BLOOD SPECIMEN Ordering Facility: [facility] Address: [address] [place] [address] Performed By: #### 5 8410-2 #### [facility] CLIA [id number] [address] Nucleated RBC (Bld) [#/Vol] 10*3/uL Normal <0.01 [facility] Comment on above: Order Comment: Speci men Type: BLOOD SPECIMEN Ordering Facility: [facility] Address: [address] [place] [address] Performed By: #### 5 8410-2 #### [facility] CLIA [id number] [address] Platelet mean volume (Bld) [Entitic vol] 10.6 fL Normal 9.0-12.7 [facility] Comment on above: Order Comment: Speci men Type: BLOOD SPECIMEN Ordering Facility: [facility] Address: [address] [place] [address] Performed By: #### 5 8410-2 #### [facility] CLIA [id number] [address] [place] Platelets (Bld) [#/Vol] 194 10*3/uL Normal 150-400 [facility] Comment on above: Order Comment: Speci men Type: BLOOD SPECIMEN Ordering Facility: [facility] Address: [address] [place] [address] Performed By: #### 5 8410-2 #### [facility] CLIA [id number] [address] [place] RBC (Bld) [#/Vol] 3.95 10*6/uL Low 4.20-6.00 [facility] Comment on above: Order Comment: Speci men Type: BLOOD SPECIMEN Ordering Facility: [facility] Address: [address] [place], [place] [address] Performed By: #### 5 8410-2 #### [facility] CLIA [id number] [address] OF [facility] WBC (Bld) [#/Vol] 11.58 10*3/uL High 3.70-11.00 [facility] Comment on above: Order Comment: Speci men Type: BLOOD SPECIMEN Ordering Facility: [facility] Address: [address] [place], [place] [address] Performed By: #### 5 8410-2 #### [facility] CLIA [id number] [address] [place] THERAPY NTon 03-14-2024 THERAPY NT HNO ID: [id number] Author: TALYA FLOWER OTR/L Service: Occupational Therapy Author Type: Occupational Therapist Type: Therapy (PT/OT/Speech/Resp) Filed: 03/14/2024 12:35 Note Text: Occupational Therapy Treatment Summary SERVICE DATE: 03/14/2024 SERVICE TIME: 1108 to 1131 ROOM: [place] [address] OT 6 Clicks Score: 16 DISCHARGE RECOMMENDATIONS Acute Rehab Recommended Discharge Disposition Comments: Pt highly independent [employer], his family at home has a shoulder injury and is unable to help physically a lot Recommended Discharge Disposition Due to: Functional deficits requiring ongoing therapy service prior to discharge home., ADL impairment ASSESSMENT Response to Therapy Interventions: Good Participation in Activities, Improved Tolerance for Activity, Requires Additional Time to Complete Activities, Multiple Ongoing Medical Issues, Low Activity Tolerance Pt progressing well towards goals, meets toileting hygiene goal this session, increased to reflect progress Assisted to roll chair near bathroom door in recliner chair. Assisted to stand from chair and heavy sequencing to use wheeled walker into bathroom to complete toilet transfer. Pt able to have BM and able to complete pericare in sitting and standing. Instability with managing his underwear in standing. Assisted to take steps to sink with wheeled walker for grooming activities after toileting and then practiced stepping back to chair to sit. Pt was not pushing wheeled walker out far enough from him and ended up too close to the walker, improved by end of session. Communicated Ax1 to get to chair with wheeled walker and push chair near bathroom if wanting to toilet on whiteboard. PRECAUTIONS Fall Risk, Weight Bearing Restrictions Left Lower Extremity Weight Bearing Status: WBAT CURRENT HOSPITAL COURSE Pt presents at [place] transfer, tree fell on him resulting in proximal tibia and fibular head fx. 10/16 L IM nail, WBAT Relevant Past Medical History: NA HOME LIVING Patient Lives With: Significant Other Assistance Available: 24-Hour Entry To Home: Stairs, With Rail Number Of Stairs Into Home: 4 Number Of Stairs To Bed/Bath: 0 Tub/Shower Type: tub/shower Laundry: main level' s/o or family can do PRIOR FUNCTIONAL LEVEL Within Functional Limits Pt indpendent with ADLs/IADLs/working Baseline Cognition: Oriented to self, Oriented to place, Oriented to time, Oriented to situation SUBJECTIVE Pt agreeable to try to get to a BSC or toilet COGNITION Responsiveness: Alert, Awake Follows Commands: 2-step Commands Psychosocial Factors Impacting Care: (fearful of movement, pain with movement) THERAPY DIAGNOSIS Decreased activities of daily living (ADL), Reduced mobility-other, Muscle Weakness (generalized), Unsteadiness on feet, Abnormalities of gait and mobility-other TREATMENT INTERVENTIONS Self Alf Management (62917) Timed Code Treatment (minutes): 23 Skilled Treatment Time (minutes): 23 Self Alf Management (47532) Treatment Minutes: 23 $ Self Alf Management (64356) Billed Units: 2 units TRAINING AND EDUCATION PROVIDED Activity Adaptation/Compensato ry Strategies, Assistive Device Use, Benefits of In-Hospital Mobility, Expected Functional Level, Grooming Tasks, Functional Mobility Involving ADLs, Positioning, Precautions/Restricti ons, Role of Occupational Therapy, Sitting Balance to Improve [place] with ADLs/Self-Care, Standing Balance to Improve [place] with ADLs/Self-Care, Toileting , Transfer - Sit to Stand, Transfer - Toilet/Commode THERAPEUTIC SKILLS USED Activity Dosing, Cues for Sequencing/Proper Technique for Activity, Cuing Tactile, Cuing Verbal, Cuing Visual, Physical Assist, Therapeutic Use of Self FUNCTIONAL STATUS mobility performed during session in bold, other mobility completed during prior session and may no longer be correct or appropriate to complete. Activities of Daily Living Assist Level Additional Information Feeding Independent Grooming Moderate Assistance Standing at sink Bathing Upper Body Minimal Assistance Bathing Lower Body Moderate Assistance Dressing Upper Body Contact Guard Assistance Dressing Lower Body Moderate Assistance Toileting Minimal Assistance toilet Mobility Assist Level Additional Information Bed Mobility Supine To Sit: Minimal Assistance Sit To Supine: Moderate Assistance Sit to Stand Minimal Assistance Stand to Sit Minimal Assistance Bed to Chair Toilet/Commode Shower Functional Mobility Minimal Assistance Functional Mobility Device: Wheeled Walker chair outside BR threshold to toilet, standing ADLs at sink BALANCE Dynamic Sitting Balance: Good Static Standing Balance: Fair Dynamic Standing Balance: Fair GOALS Grooming with: Minimal Assistance Upper Body Bathing with: Contact Guard Assistance Upper Body Dressing with: Contact Guard Assistance Lower Body Bathing with: Minimal Assistance (more content not included)... Normal [facility] THERAPY NT HNO ID: [id number] Author: KENYON PUENTE PT Service: Physical Therapy Author Type: Agriculturist Type: Therapy (PT/OT/Speech/Resp) Filed: 03/14/2024 13:53 Note Text: Attestation signed by Kenyon Puente PT at 03/14/2024 1:53 PM I reviewed and agree with the documentation corresponding to this therapy visit. SIGNATURE: Kenyon Puente PT DATE: March 14, 2024 TIME: 1:53 PM Physical Therapy Treatment Summary SERVICE DATE: 03/14/2024 SERVICE TIME: 1039 to 1104 ROOM: [id number] PT 6 Clicks Score: 17 DISCHARGE RECOMMENDATIONS Acute Rehab Recommended Discharge Disposition Comments: Pt is functioning far below baseline and would benefit from skilled care in acute rehab setting. Wants location in [place] [facility]; if not applicable then SNF/subacute is appropriate. Recommended Discharge Disposition Due to: Functional deficits requiring ongoing therapy service prior to discharge home., Patient requires active, intensive rehabilitation by multiple therapy disciplines. Anticipate the patient will tolerate 3 hours of therapy per day., Requires multiple therapy disciplines Recommended Discharge Equipment: Cane, Wheeled Walker, Shower Chair, Grab Bars-Shower, Elevated Toilet Seat ASSESSMENT Response to Therapy Interventions: Good Participation in Activities Patient with improved gait distances this session. Patient continues to require minimal assist to safely mobilize at this time. Patient well below baseline functioning at this time. continue to recommend acute care to improve strength, ROM, balance,endurance, normalized gait pattern, and independence with mobility tasks to prior level of function for safe return to home activity. Additional personnel present during visit: Padmaja Mccurdy PRECAUTIONS Fall Risk, Weight Bearing Restrictions Left Lower Extremity Weight Bearing Status: WBAT CURRENT HOSPITAL COURSE Pt presents at [place] transfer, tree fell on him resulting in proximal tibia and fibular head fx. 10/16 L IM nail, WBAT Relevant Past Medical History: NA HOME LIVING Patient Lives With: Significant Other Assistance Available: 24-Hour Entry To Home: Stairs, With Rail Number Of Stairs Into Home: 4 Number Of Stairs To Bed/Bath: 0 Tub/Shower Type: tub/shower Laundry: main level' s/o or family can do PRIOR FUNCTIONAL LEVEL Within Functional Limits Pt indpendent with ADLs/IADLs/working SUBJECTIVE pleasant and agreeable to PT session THERAPY DIAGNOSIS Reduced mobility-other, Decreased activities of daily living (ADL), Unsteadiness on feet, Abnormalities of gait and mobility-other, General symptoms and signs-other TREATMENT INTERVENTIONS Therapeutic Exercise (02345), Therapeutic Activity (17932), Gait Training (47815) Therapeutic Exercise (74714) Treatment Minutes: 13 $ Therapeutic Exercise (86743) Billed Units: 1 unit Patient completed LE AAROM/strengthening (ankle pump, quad set, gluteal set, heel slide, hip abd/add to neutral, short arc quad, long arc quad, hip adductor squeeze) x 10 reps with minimal amount of assist. Patient set up with ice to surgical LE and elevated lower extremity as needed. Therapeutic Activity (89328) Treatment Minutes: 3 $ Therapeutic Activity (82215) Billed Units: 0 units cuing/assist for proper movements/techniques with bed mobility,scooting, transfers. Positioned for comfort at end of session. Gait Training (38582) Treatment Minutes: 9 $ Gait Training (25654) Billed Units: 1 unit cuing for proper posture, heel strike, step length, walker management, safety with turning. Timed Code Treatment (minutes): 25 Skilled Treatment Time (minutes): 25 TRAINING AND EDUCATION PROVIDED Assistive Device Use, Bed Mobility, Exercise Program, Gait Pattern, Reduction of Deviations, Positioning, Transfers THERAPEUTIC SKILLS USED Cues for Sequencing/Proper Technique for Activity, Cuing Tactile, Cuing Verbal, Cuing Visual, Facilitation of Joint Range of Motion, Movement Facilitation, Physical Assist, Postural Alignment Correction FUNCTIONAL STATUS mobility performed during session in bold, other mobility completed during prior session and may no longer be correct or appropriate to complete. Bed Mobility Rolling: Independent Supine To Sit: Minimal Assistance, Contact Guard Assistance Sit to Supine: Stand By Assistance Scooting: Contact Guard Assistance Transfers Sit To Stand: Minimal Assistance, Additional Information cuing to slide LLE out for pain relief, proper UE support, powering up with RLE Stand To Sit: Minimal Assistance, Additional Information cuing to slide LLE out, proper UE support, eccentric control Bed to Chair Minimal Assistance, Additional Information Bed To Chair Transfer Type: Stepping Bed To Chair Frankel (more content not included)... Normal [facility] ALLIED HEALTHon 03-13-2024 ALLIED HEALTH HNO ID: [id number] Author: ALEKSANDER AVILA Chaplain Service: Spiritual Care Author Type: Silverware Etcher Type: Allied Health Filed: 03/13/2024 19:42 Note Text: SPIRITUAL CARE PROGRESS NOTE SERVICE DATE: 03/13/2024 SERVICE TIME: 7:37 PM As a warehouse material handler I reached out to PT while rounding. PT indicated they did not need a spiritual care visit at this time. To contact the Spiritual Care Department: Please call [phone]. SIGNATURE: Chaplain Ariela PATIENT NAME: Richard Head DATE: March 13, 2024 TIME: 7:37 PM PAGER/CONTACT #: [phone] Normal [facility] Basic metabolic 2000 panelon 03-13-2024 Anion gap [Moles/Vol] 7 mmol/L Low 8-15 [facility] Comment on above: Order Comment: Speci men Type: BLOOD SPECIMEN Ordering Facility: [facility] Address: [address] [place] [address] Performed By: #### 2 4321-2 #### [facility] CLIA [id number] [address] [place] [address] [place] Calcium [Mass/Vol] 8.5 mg/dL Normal 8.5-10.2 [facility] Comment on above: Order Comment: Speci men Type: BLOOD SPECIMEN Ordering Facility: [facility] Address: [address] [place] [address] Performed By: #### 2 1-2 #### [facility] CLIA [id number] [address] [place] [address] [place] Chloride [Moles/Vol] 105 mmol/L Normal 98-107 [facility] Comment on above: Order Comment: Speci men Type: BLOOD SPECIMEN Ordering Facility: [facility] Address: [address] [place] [address] Performed By: #### 2 4321-2 #### [facility] CLIA [id number] [address] [place] [address] [place] CO2 [Moles/Vol] 25 mmol/L Normal 22-30 [facility] Comment on above: Order Comment: Speci men Type: BLOOD SPECIMEN Ordering Facility: [facility] Address: [address] [place] [address] Performed By: #### 2 4321-2 #### [facility] CLIA [id number] [address] [place] [address] [place] Creatinine [Mass/Vol] 0.86 mg/dL Normal 0.73-1.22 [facility] Comment on above: Order Comment: Patrick bob Type: BLOOD SPECIMEN Ordering Facility: [facility] Address: [address] [place] [address] Performed By: #### 2 4321-2 #### [facility] CLIA [id number] [address] [place] Creatinine and Glomerular filtration rate.predicted panel (S/P/Bld) 100 mL/min/1.73m??? Normal >=60 [facility] Comment on above: Order Comment: Patrick rojas Type: BLOOD SPECIMEN Ordering Facility: [facility] Address: [address] [place] [address] Result Comment: Angela mated Glomerular Filtration Rate (eGFR) is calculated using the 2020 CKD-EPI creatinine equation. This equation utilizes serum creatinine, sex, and age as parameters. The creatinine assay has traceable calibration to isotope dilution-mass spectrometry. Refer to KDIGO guidelines for clinical interpretation. In patients with unstable renal function, e.g. those with acute kidney injury, the eGFR may not accurately reflect actual GFR. Performed By: #### 2 4321-2 #### [facility] CLIA [id number] [address] [place] [address] [place] Glucose [Mass/Vol] 124 mg/dL High 74-99 [facility] Comment on above: Order Comment: Patrick rojas Type: BLOOD SPECIMEN Ordering Facility: [facility] Address: [address] [place] [address] Result Comment: The [place] Diabetes Association (ADA) provides guidance for cutoff values for fasting glucose and random glucose. The ADA defines fasting as no caloric intake for at least 8 hours. Fasting plasma glucose results between 100 to 125 mg/dL indicate increased risk for diabetes (prediabetes). Fasting plasma glucose results greater than or equal to 126 mg/dL meet the criteria for diagnosis of diabetes. In the absence of unequivocal hyperglycemia, results should be confirmed by repeat testing. In a patient with classic symptoms of hyperglycemia or hyperglycemic crisis, random plasma glucose results greater than or equal to 200 mg/dL meet the criteria for diagnosis of diabetes. Reference: Standards of Medical Care in Diabetes 2016, [place] Diabetes Association. Diabetes Care. 2016.39(Suppl 1). Performed By: #### 2 4321-2 #### [facility] CLIA [id number] [address] [place] Potassium [Moles/Vol] 4.2 mmol/L Normal 3.7-5.1 [facility] Comment on above: Order Comment: Speci men Type: BLOOD SPECIMEN Ordering Facility: [facility] Address: [address] [place] [address] Performed By: #### 2 4321-2 #### [facility] CLIA [id number] [address] [place] Sodium [Moles/Vol] 137 mmol/L Normal 136-144 [facility] Comment on above: Order Comment: Speci men Type: BLOOD SPECIMEN Ordering Facility: [facility] Address: [address] [place] [address] Performed By: #### 2 4321-2 #### [facility] CLIA [id number] [address] [place] [facility] Urea nitrogen [Mass/Vol] 14 mg/dL Normal 9-24 [facility] Comment on above: Order Comment: Speci men Type: BLOOD SPECIMEN Ordering Facility: [facility] Address: [address] [place] [address] Performed By: #### 2 4321-2 #### [facility] CLIA [id number] [address] CBC panel Auto (Bld)on 03-13 Erythrocyte distribution width (RBC) [Ratio] 13.6 % Normal 11.5-15.0 [facility] Comment on above: Order Comment: Speci men Type: BLOOD SPECIMEN Ordering Facility: [facility] Address: [address] [place] [address] Performed By: #### 5 7021-8 #### [facility] CLIA [id number] [address] [facility] Hematocrit (Bld) [Volume fraction] 39.3 % Normal 39.0-51.0 [facility] Comment on above: Order Comment: Speci men Type: BLOOD SPECIMEN Ordering Facility: [facility] Address: [address] [place] [address] Performed By: #### 5 7021-8 #### [facility] CLIA [id number] [address] Hemoglobin (Bld) [Mass/Vol] 12.8 g/dL Low 13.0-17.0 [facility] Comment on above: Order Comment: Speci men Type: BLOOD SPECIMEN Ordering Facility: [facility] Address: [address] [place] [address] Performed By: #### 5 7021-8 #### [facility] CLIA [id number] [address] MCH (RBC) [Entitic mass] 30.7 pg Normal 26.0-34.0 [facility] Comment on above: Order Comment: Speci men Type: BLOOD SPECIMEN Ordering Facility: [facility] Address: [address] [place] [address] Performed By: #### 5 7021-8 #### [facility] CLIA [id number] [address] MCHC (RBC) [Mass/Vol] 32.6 g/dL Normal 30.5-36.0 [facility] Comment on above: Order Comment: Speci men Type: BLOOD SPECIMEN Ordering Facility: [facility] Address: [address] [place] [address] Performed By: #### 5 7021-8 #### [facility] CLIA [id number] [address] MCV (RBC) [Entitic vol] 94.2 fL Normal 80.0-100.0 [facility] Comment on above: Order Comment: Speci men Type: BLOOD SPECIMEN Ordering Facility: [facility] Address: [address] [place] [address] Performed By: #### 5 7021-8 #### [facility] CLIA [id number] [address] Nucleated RBC (Bld) [#/Vol] 10*3/uL Normal <0.01 [facility] Comment on above: Order Comment: Speci men Type: BLOOD SPECIMEN Ordering Facility: [facility] Address: [address] [place] [address] Performed By: #### 5 7021-8 #### [facility] CLIA [id number] [address] [place] [address] [place] Platelet mean volume (Bld) [Entitic vol] 9.7 fL Normal 9.0-12.7 [facility] Comment on above: Order Comment: Speci men Type: BLOOD SPECIMEN Ordering Facility: [facility] Address: [address] [place] [address] Performed By: #### 5 7021-8 #### [facility] CLIA [id number] [address] [place] [address] [place] Platelets (Bld) [#/Vol] 203 10*3/uL Normal 150-400 [facility] Comment on above: Order Comment: Speci men Type: BLOOD SPECIMEN Ordering Facility: [facility] Address: [address] [place] [address] Performed By: #### 5 7021-8 #### [facility] CLIA [id number] [address] [place] [address] [place] RBC (Bld) [#/Vol] 4.17 10*6/uL Low 4.20-6.00 [facility] Comment on above: Order Comment: Speci men Type: BLOOD SPECIMEN Ordering Facility: [facility] Address: [address] [place] [address] Performed By: #### 5 7021-8 #### [facility] CLIA [id number] [address] [place] [address] [place] WBC (Bld) [#/Vol] 12.13 10*3/uL High 3.70-11.00 [facility] Comment on above: Order Comment: Speci men Type: BLOOD SPECIMEN Ordering Facility: [facility] Address: [facility] [place] [address] Performed By: #### 5 7021-8 #### [facility] CLIA [id number] [address] [place] [address] [place] THERAPY NTon 03-13-2024 THERAPY NT HNO ID: [id number] Author: KENYON PUENTE, PT Service: Physical Therapy Author Type: Physical Therapist Type: Therapy (PT/OT/Speech/Resp) Filed: 03/13/2024 14:29 Note Text: Physical Therapy Summary SERVICE DATE: 03/13/2024 SERVICE TIME: 1110 to 1142 ROOM: [place] [address] PT 6 Clicks Score: 18 DISCHARGE RECOMMENDATIONS Acute Rehab Recommended Discharge Disposition Comments: Pt is functioning far below baseline and would benefit from skilled care in acute rehab setting. [facility] location [facility]; if not applicable then SNF/subacute is appropriate. Recommended Discharge Disposition Due to: Functional deficits requiring ongoing therapy service prior to discharge home., Patient requires active, intensive rehabilitation by multiple therapy disciplines. Anticipate the patient will tolerate 3 hours of therapy per day., Requires multiple therapy disciplines Recommended Discharge Equipment: Cane, Wheeled Walker, Shower Chair, Grab Bars-Shower, Elevated Toilet Seat ASSESSMENT Response to Therapy Interventions: Good Participation in Activities Pt was able to complete all functional mobility as indicated in grid w/o remarkable event. Pt required physical assist from skilled PT as indicated in grid. Pt and S/O were receptive to all education given reagrding DVT prophylaxis and considerations of IMN placement. PRECAUTIONS Fall Risk, Weight Bearing Restrictions Left Lower Extremity Weight Bearing Status: WBAT CURRENT HOSPITAL COURSE Pt presents at [facility], tree fell on him resulting in proximal tibia and fibular head fx. 10/16 L IM nail, WBAT Relevant Past Medical History: NA HOME LIVING Patient Lives With: Significant Other Assistance Available: 24-Hour Entry To Home: Stairs, With Rail Number Of Stairs Into Home: 4 Number Of Stairs To Bed/Bath: 0 Tub/Shower Type: tub/shower Laundry: main level' s/o or family can do PRIOR FUNCTIONAL LEVEL Within Functional Limits Pt indpendent with ADLs/IADLs/working SUBJECTIVE Pt in good mood and agreeable to PT session. Pt endorses pain in BLE THERAPY DIAGNOSIS Reduced mobility-other, Decreased activities of daily living (ADL), Unsteadiness on feet, Abnormalities of gait and mobility-other, General symptoms and signs-other TREATMENT INTERVENTIONS Evaluation, Therapeutic Activity (67394) Timed Code Treatment (minutes): 15 Skilled Treatment Time (minutes): 32 Therapeutic Activity (28990) Treatment Minutes: 15 Therapeutic Activity (90114) Treatment Minutes: 15 Exercise Ankle Pumps (number of reps): x20 ea direction Quad Sets (number of reps): x10 LLE Glut Sets (number of reps): x10 Heel Slides (number of reps): x5 LLE w/ assist from skilled PT Pt and family were educated on differences between SNF/subacute and acute rehab; given education on reasons for discharge destination in regards to safety in mobility. TRAINING AND EDUCATION PROVIDED Anatomy and Impact on Deficits, Assistive Device Use, Bed Mobility, Benefits of In-Hospital Mobility, Discharge Planning, Equipment, Energy Conservation, Falls Prevention, Gait Pattern, Reduction of Deviations, Positioning, Precautions/Restricti ons, Pre-gait Activities, Standing Balance THERAPEUTIC SKILLS USED Activity Dosing, Assessment of Tolerance Including Vitals Response to Activity, Cues for Sequencing/Proper Technique for Activity, Cuing Tactile, Cuing Verbal, Physical Assist, Muscle Activation Facilitation, Proprioceptive Input, Repetitive Task Learning, Task Analysis Learning, Teach-Back for Education FUNCTIONAL STATUS Bed Mobility Rolling: Independent Supine To Sit: Contact Guard Assistance Sit to Supine: Stand By Assistance Scooting: Stand By Assistance, Additional Information use of bed controls to facilitate Transfers Sit To Stand: Minimal Assistance Gait belt contact and verbal cues to maintain optimal body mechanics for pain mitigation. Stand To Sit: Contact Guard Assistance Bed to Chair Gait Minimal Assistance Gait belt and FWW management w/ verbal cues to optimize safety in room Gait Device: Wheeled Walker General Deviations/Observatio ns: Antalgic gait, Difficulty changing direction/turning, Flexed trunk posture, Lateral sway increased, Non-functional gait speed, Shuffling Gait, Step length decreased, Trunk Control Decreased Gait Distance (feet): 2' Stairs Range of Motion: WFL Except, ROM Limitation Comments ROM Limitation Comments: LLE impaired as expected post surgey, bandage blocking normal ROM Strength: Strength Limitation Comments, Right LE Measurement Strength Limitation Comments: LLE not tested due to IMN placement in tibia Right Hip Flexion Strength: 4+/5 Right Hip Extension Strength: WFL Right Knee Flexion Strength: 5/5 (pain) Right Knee Extension Strength: 5/5 Right Ankle Dorsiflexion Strength: 5/5 GOALS Able to Perform HEP with: Stand By Assistance Transfer Sit to/from Stand with: Stand By (more content not included)... 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 Educated on safe walker transitions and pt able to stand to wheeled walker for bed linen change and taking sides scoots/shuffles to head of bed. Assisted to return to supine and positioned for comfort. PRECAUTIONS Fall Risk, Weight Bearing Restrictions Left Lower Extremity Weight Bearing Status: WBAT CURRENT HOSPITAL COURSE Pt presents at [place] [facility], tree fell on him resulting in proximal tibia and fibular head fx. 10/16 L IM nail, WBAT Relevant Past Medical History: NA HOME LIVING Patient Lives With: Significant Other Assistance Available: 24-Hour (s/o has a shoulder injury) Entry To Home: Stairs, With Rail Number Of Stairs Into Home: 4 Number Of Stairs To Bed/Bath: 0 Tub/Shower Type: tub/shower Laundry: main level PRIOR FUNCTIONAL LEVEL Within Functional Limits Pt indpendent with ADLs/IADLs/working Baseline Cognition: Oriented to self, Oriented to place, Oriented to time, Oriented to situation SUBJECTIVE pt fearful of pain, willing to work with OT with encouragement COGNITION Responsiveness: Alert, Awake Follows Commands: 2-step Commands Psychosocial Factors Impacting Care: (fearful of movement, pain with movement) THERAPY DIAGNOSIS Decreased activities of daily living (ADL), Reduced mobility-other, Muscle Weakness (generalized), Unsteadiness on feet, Abnormalities of gait and mobility-other TREATMENT INTERVENTIONS Evaluation, Self Alf Management (69987) Timed Code Treatment (minutes): 12 Skilled Treatment Time (minutes): 28 $ Evaluation - Moderate (83435) Billed Units: 1 unit Self Alf Management (62711) Treatment Minutes: 12 $ Self Alf Management (25609) Billed Units: 1 unit TRAINING AND EDUCATION PROVIDED Activity Adaptation/Compensato ry Strategies, Assistive Device Use, Bed Mobility, Benefits of In-Hospital Mobility, Expected Functional Level, Grooming Tasks, Functional Mobility Involving ADLs, Positioning, Precautions/Restricti ons, Role of Occupational Therapy, Sitting Balance to Improve [place] with ADLs/Self-Care, Standing Balance to Improve [place] with ADLs/Self-Care, Transfer - Tub Shower THERAPEUTIC SKILLS USED Activity Dosing, Cues for Sequencing/Proper Technique for Activity, Cuing Tactile, Cuing Verbal, Cuing Visual, Physical Assist, Therapeutic Use of Self FUNCTIONAL STATUS Activities of Daily Living Assist Level Additional Information Feeding Independent Grooming Moderate Assistance Bathing Upper Body Minimal Assistance Bathing Lower Body Maximal Assistance Dressing Upper Body Minimal Assistance Dressing Lower Body Maximal Assistance Toileting Maximal Assistance, Additional Information BSC level Mobility Assist Level Additional Information Bed Mobility Supine To Sit: Minimal Assistance Sit To Supine: Moderate Assistance Sit to Stand Minimal Assistance Stand to Sit Minimal Assistance Bed to Chair Toilet/Commode Shower Functional Mobility Minimal Assistance, Additional Information Functional Mobility Device: Wheeled Walker sidescoots/shuffles to HOB Hand Dominance: Left Range of Motion: WFL Strength: WFL Except (L thumb/wrist quite sore and unable to fully use) BALANCE Dynamic Sitting Balance: Good Static Standing Balance: Fair Dynamic Standing Balance: Poor GOALS Grooming with: Minimal Assistance Upper Body Bathing with: Contact Guard Assistance Upper Body Dressing with: Contact Guard Assistance Lower Body Bathing with: Minimal Assistance Lower Body Dressing with: Minimal Assistance Toilet Hygiene with: Minimal Assistance Toilet Transfer with: Contact Guard Assistance Tolerate (minutes of functional activity): 10 (standing ADls) Functional Activity with: Minimal Assistance (dynamic mobility to the BR and back) Additional Goal 1: Pt to to demo safe walker transfers without safety cues Transfer: bed mobility CGA Rehab Potential: Excellent PLAN OT Frequency: 2 Times Per Week Telly (more content not included)... Normal [facility] ANES POSTPROC EVALon 024 ANES POSTPROC EVAL HNO ID: [id number] Author: AB LEYVA MD Service: Anesthesiology Author Type: Anesthesiologist Type: Anesthesia Postprocedure Evaluation Filed: 03/12/2024 14:52 Note Text: POST ANESTHESIA EVALUATION NOTE : 1965 Procedure Summary Date: 03/12/24 Room / Location: [facility] OR / [facility] OR Anesthesia Start: 1129 Anesthesia Stop: 1326 Procedure: INSERTION NAIL / BETTIE INTRAMEDULLARY TIBIA (Left: Leg) Diagnosis: Fracture of tibial shaft, left, closed (Fracture of tibial shaft, left, closed [S82.A]) Surgeons: Carisa Burch MD Responsible Provider: Ab Leyva MD Anesthesia Type: general ASA Status: 2 Anesthesia Type: general Airway Type: LMA Last Vitals Vitals Value Taken Time BP 138/72 03/12/24 1445 Temp 36.7 ?C (98.1 ?F) 03/12/24 1430 HR SpO2 74 03/12/24 1446 Resp 21 03/12/24 1446 SpO2 95 % 03/12/24 1446 Vitals shown include unfiled device data. Post Anesthesia Patient Status Patient Evaluation: PACU. PACU/ICU Patient Condition: stable. Anticipated Disposition: inpatient floor planned admission. Neurological Status: sleepy but arousable. Pulmonary Status: breathing comfortably on supplemental oxygen Airway Control: returned to baseline unsupported. Cardiovascular Status: stable. Pain Management: clinically adequate Postoperative Hydration: acceptable. Intraoperative Events: no significant anesthesia events Post Operative Nausea/Vomiting Status: no significant post operative nausea or vomiting Recommendation: further care per PACU/ICU/floor team. Anesthesia Observations No Documentation SIGNATURE: Ab Leyva MD PATIENT NAME: Richard Head DATE: March 12, 2024 TIME: 2:52 PM CSN: [id number] [facility] ANES PRE-OPon 03-12-2024 ANES PRE-OP HNO ID: [id number] Author: AB LEYVA MD Service: Anesthesiology Author Type: Anesthesiologist Type: Anesthesia Preprocedure Evaluation Filed: 03/12/2024 10:48 Note Text: ANESTHESIOLOGY DAY OF SURGERY NOTE : 1965 Procedure Information Date/Time: 03/12/24 1145 Procedure: INSERTION NAIL / BETTIE INTRAMEDULLARY TIBIA (Left: Leg) Location: [place] [facility] / [place] Surgeons: Carisa Burch MD Estimated body mass index is 28.89 kg/m? as calculated from the following: Height as of this encounter: 172.7 cm (5' 8). Weight as of this encounter: 86.2 kg (190 lb). Most recent hematocrit and potassium results: Hematocrit 42.5 03/11/2024 Potassium 4.4 03/11/2024 Relevant Problems PULMONARY (+) Former smoker Podiatry (+) Complex fracture of tibia, left, closed, initial encounter I - PHYSICAL EVALUATION AIRWAY Patient intubated: No. Tracheostomy tube not present Mallampati: I. TM distance: >3 FB. Neck ROM: full ROM without neurological symptoms. Mouth opening: adequate. Short neck: no. Thick neck: no DENTAL Dental findings: missing tooth/teeth and broken tooth. Additional exam findings: no II - ANESTHESIA PLAN ASA Score: 2 Anesthetic Plan: general Airway type: LMA The patient is not a current smoker. NPO Status: adequate Beta Janene Monitoring Plan Monitoring plan: standard ASA. Post Procedure Analgesic Plan Postoperative analgesic plan: multimodal analgesia. Informed Consent Anesthetic risks, benefits, alternatives, personnel and consent discussed: yes. Patient / Responsible Libertarian agrees to proceed: yes Patient / Surrogate agrees to blood products: Yes Significant changes in the patient condition since the History and Physical, not otherwise documented in primary service progress note: no. Potential Anesthesia issues that may suggest increased risk of complications or contraindication to planned procedure: none. Vitals Value Taken Time BP 111/67 03/12/24 1028 Pulse 69 03/12/24 1028 Resp 18 03/12/24 1028 Temp 37 ?C (98.6 ?F) 03/12/24 1028 SpO2 94 % 03/12/24 1028 Facility-Administered Medications as of 03/12/2024 Medication Dose Route Frequency [COMPLETED] HYDROmorphone 0.5 mg injection (DILAUDID) 0.5 mg INTRAVENOUS ONCE [COMPLETED] tetanus diphtheria pertussis Tdap vaccine (PF) 0.5 mL injection (ADACEL) 0.5 mL INTRAMUSCULAR ONCE (IMMUNIZATION) [Transfer Hold] lactated ringers iv infusion 75 mL/hr INTRAVENOUS CONTINUOUS [Transfer Hold] morphine 2 mg injection 2 mg INTRAVENOUS q 2 H PRN [Transfer Hold] acetaminophen 1,000 mg tab(s) (TYLENOL) 1,000 mg ORAL q 6 H [Transfer Hold] oxyCODONE IR 5-10 mg tab(s) (ROXICODONE) 5-10 mg ORAL q 4 H PRN Outpatient Medications as of 03/12/2024 Medication Sig aspirin, enteric coated (ASPIRIN, ENTERIC COATED) 81 mg EC tablet Take 81 mg by mouth once daily. naproxen (NAPROSYN) 250 mg tablet Take 500 mg by mouth once daily as needed. docosahexaenoic acid/epa (FISH OIL ORAL) Take 2 tablets by mouth once daily. I have interviewed and examined the patient. I have reviewed the medical record and/or the pre-anesthesia evaluation, pertinent labs, and test results. This contains updated information obtained within 48 hours of Surgery/Procedure. SIGNATURE: Ab Leyva MD PATIENT NAME: Richard Head DATE: March 12, 2024 TIME: 10:47 AM CSN: [id number] [facility] BRIEF OP NOTon 03-12-2024 BRIEF OP NOT HNO ID: [id number] Author: SWATHI ROLON MD Service: Orthopaedic Surgery Author Type: Resident Type: Brief Op Note Filed: 03/12/2024 13:13 Note Text: Orthopaedic Surgery Brief Operative Note Log ID: [id number] Surgery/Procedure Date: 03/12/2024 Incision/Procedure Start Time: 11:49 AM Incision Close/Procedure End Time: 1:09 PM Surgeon(s)/Procedural ist(s) and Casing Fluid Tender(s): Surgeons and Role: * Carisa Burch MD - Primary * Charles Mccoy MD - Resident - Assisting * Swathi Rolon MD - Resident - Assisting No Additional Staff Procedure(s): Procedure(s) (LRB): INSERTION NAIL / BETTIE INTRAMEDULLARY TIBIA (Left) Anesthesia: Choice - Anesthesia Consult Pre-Op/Pre-Procedure Diagnosis: Fracture of tibial shaft, left, closed [S82.202A] Post-Op/Post-Procedur e Diagnosis: Fracture of tibial shaft, left, closed [S82.202A] Fluids: per anesthesia Estimated Blood Loss: 200cc Manzano: None Specimens: None Drains: None Findings: See operative report. Complications: None Special medications: 2 g Ancef Post op plan: 58 year old male status-post L tibial IMN. - Management per ortho - Pain control. - Weight Bearing Status: WBAT LLE. - Dressing(s): soft dressings to LLE - PT/OT: Evaluation AND recommendations. - DVT PPx: SCDs. Asa 81 mg BID x 21 days. - Antibiotic PPx: Ancef 2 g Q8H x 2 doses. - Manzano: none. - Imaging: none. - Anticipated Length of Stay/Disposition: pending PT/OT. Swathi Rolon MD Orthopedic Surgery Resident 03/12/24 1:12 PM [facility] ED NOTEon 03-12-2024 ED NOTE HNO ID: [id number] Author: MARLEE MARQUEZ RN Service: Emergency Medicine Author Type: Registered Nurse Type: ED Notes Filed: 03/12/2024 06:36 Note Text: XR notified at this time Normal [facility] OPERATIVE NOon 03-12-2024 OPERATIVE NO HNO ID: [id number] Author: CARISA BURCH MD Service: Orthopaedic Surgery Author Type: Physician Type: Operative Report Filed: 03/13/2024 22:33 Note Text: OPERATIVE/PROCEDURE REPORT LOG ID: [id number] SURGERY/PROCEDURE DATE: 03/12/2024 INCISION/PROCEDURE START TIME: 11:49 AM INCISION CLOSE/PROCEDURE END TIME: 1:09 PM SURGEON(S)/PROCEDURAL IST(S) AND RESIDENCE DIRECTOR(S): Surgeons and Role: * Carisa Burch MD - Primary * Charles Mccoy MD - Resident - Assisting * Swathi Rolon MD - Resident - Assisting No Additional Staff PRE-OP/PRE-PROCEDURE DIAGNOSIS: 1) Segmental Left Tibial Shaft Fracture, Closed 2) Segmental Left Fibula Fracture, Closed POST-OP/POST-PROCEDUR E DIAGNOSIS: 1) Segmental Left Tibial Shaft Fracture, Closed 2) Segmental Left Fibula Fracture, Closed SURGERY/PROCEDURE(S): 1) Insertion of a Left Intramedullary Tibial Nail for a Segmental Left Tibial Shaft Fracture (CPT 05934) 2) Closed Treatment of Left Proximal Fibula Fracture with Manipulation (CPT 12289) ANESTHESIA: 1) General ANTIBIOTICS: 1) Ancef 2g IV ESTIMATED BLOOD LOSS: 1) 200 CC FLUIDS: 1) Per Anesthesia Documentation SPECIMENS: 1) None CLINICAL INDICATIONS: 58 year old male was transferred to [facility] on 03/11/2024 for management of left tibia and fibula fractures sustained from a tree versus left lower extremity injury. The patient was admitted to orthopaedic trauma surgery. The risks, limitations, benefits and alternatives to all treatment options including non-operative and operative management of the patient's left tibia and fibula fractures were discussed with the patient. The risks of the operation include, but are not limited to, the risks associated with general anesthesia, infection, bleeding, damage to nearby structures (such as arteries, veins, nerves, muscle, tendons, ligaments), chronic pain, post-traumatic arthritis, malunion, nonunion, deep venous thromboses, pulmonary embolism, hardware failure and the need for future operations. The patient elected to proceed with surgical treatment of the left tibia fracture and possible left fibula fracture. All questions and concerns were answered and addressed. The informed consent was reviewed. SURGERY/PROCEDURE DETAILS: The patient was met in the pre-operative holding area on 03/12/2024. A pre-operative huddle was conducted with the surgical team. The patient was identified with two patient identifiers (name and date of ). The patient's operative extremity (left lower extremity) was marked. The pre-operative checklist, including review of the informed consent, was reviewed and agreed upon by all members of the surgical team. The patient was transferred to the operating room. The patient was intubated by anesthesia (endotracheal intubation) and positioned supine on a radiolucent table with attention to padding of bony prominences. The patient's left lower extremity was pre-cleansed with alcohol, sterilely prepped (ChloraPrep) and draped in standard orthopaedic fashion. A final time out was then conducted in accordance with [facility] policy. After all members of the surgical team agreed upon the details of the procedure, a suprapatellar incision was performed to the left knee. Hemostasis was achieved with electrocautery. The quadriceps tendon was incised in line with the incision. A guide pin was inserted to the proximal tibia with the trajectory confirmed on AP and lateral left knee radiographs. The guide pin was advanced into the proximal tibia. An opening reamer was advanced over the guide pin into the proximal tibia. The guide pin was removed. The distal tibial shaft fracture was reduced under AP and lateral left tibia/fibula radiographs with a percutaneously-insert ed pointed reduction forceps. The proximal tibial shaft fracture was reduced under AP and lateral left tibia/fibula radiographs with a percutaneously-insert ed pointed reduction forceps. A long ball-tip guide wire was inserted into the proximal tibia, across the segmental tibial shaft fracture and to the physeal scar distally. The length measured 345 mm. Sequential reaming beginning with 9 mm andadvancing by 0.5 mm at a time was performed until 11 mm was achieved. A Shout TV T2 alpha 9 mm x 345 mm intramedullary tibial nail was advanced over the long ball-tip guide wire. The long ball-tip guide wire was removed. The nail position was confirmed on AP and lateral radiographs of the left tibia. After confirmation of the nail position, three proximal interlocking screws were inserted via stab incisions to the proximal lower leg. The length, alignment and rotation of the segmental tibial shaft fracture was confirmed. Two distal interlocking screws were then inserted via stab incisions to the medial ankle using perfect circles technique. The pointed reduction forceps were removed. Final A (more content not included)... Normal [facility] XR TIBIA FIBULA 2V AP/LAT LT on 03-12-2024 XR TIBIA FIBULA 2V AP/LAT LT * * *Final Report* * * DATE OF EXAM: Mar 12 2024 12:56PM [id number] [id number] - XR TIBIA FIBULA 2V AP/LAT LT / PROCEDURE REASON: ORIF L TIBIA * * * * Physician Interpretation * * * * EXAM TITLE: XR TIBIA FIBULA 2V AP/LAT LT DATE: 03/12/2024 2:02 PM INDICATION: Intraoperative COMPARISON: Outside x-ray from 03/11/2024 FINDINGS: 5 minutes 5 seconds of fluoroscopy time. 18 images demonstrating orthopedic fixation of tibial fractures with an intramedullary bettie. Again noted are fractures of the fibula. IMPRESSION: Intraoperative exam. Technical Illustrator: DAVIS Transcribe Date/Time: Mar 12 2024 2:02P Dictated by : TOMMY CASTANEDA MD This examination was interpreted and the report reviewed and electronically signed by: TOMMY CASATNEDA MD on Mar 12 2024 2:02PM EST [id number] N Normal [facility] XR WRIST 3V PA/LAT/OBL LTon 03-12-2024 XR WRIST 3V PA/LAT/OBL LT * * *Final Report* * * DATE OF EXAM: Mar 12 2024 7:15AM [id number] - XR WRIST 3V PA/LAT/OBL LT / PROCEDURE REASON: Wrist pain * * * * Physician Interpretation * * * * EXAM TITLE: XR WRIST 3V PA/LAT/OBL LT DATE: 03/12/2024 7:20 AM INDICATION: Left wrist pain secondary to a fall COMPARISON: None. FINDINGS: No fracture or dislocation. No acute joint or soft tissue abnormality. IMPRESSION: Within normal limits. Technical Illustrator: PSCB Transcribe Date/Time: Mar 12 2024 7:20A Dictated by : TOMMY CASTANEDA MD This examination was interpreted and the report reviewed and electronically signed by: TOMMY CASTANEDA MD on Mar 12 2024 7:21AM EST [id number] Normal [facility] Basic Metabolic Profile (BMP )on 03-11-2024 BUN/CRE 15.7 RATIO Normal - [facility] Comment on above: Performed By: #### L 100.0100, L300.3900, L300.4310, L500.2500 #### [facility] [address] [place], [address] CA,Total 9.3 mg/dL Normal 8.5-10.1 [facility] Comment on above: Performed By: #### L 100.0100, L300.3900, L300.4310, L500.2500 #### [facility] [address] [place], [address] Chloride [Moles/Vol] 106 mmol/L Normal 98-107 [facility] Comment on above: Performed By: #### L 100.0100, L300.3900, L300.4310, L500.2500 #### [facility] [address] [place], [address] CO2 [Moles/Vol] 29.0 mmol/L Normal 21.0-32.0 [facility] Comment on above: Performed By: #### L 100.0100, L300.3900, L300.4310, L500.2500 #### [facility] [address] [place], [address] Creatinine [Mass/Vol] 1.08 mg/dL Normal 0.70-1.30 [facility] Comment on above: Result Comment: The validity of the calculated GFR GFRAA in patients over 70 years has not been determined. Clinical correlation is essential. Performed By: #### L 100.0100, L300.3900, L300.4310, L500.2500 #### [facility] [address] [place], [address] ECRCL 82.21 ml/min Normal [facility] Comment on above: Performed By: #### L 100.0100, L300.3900, L300.4310, L500.2500 #### [facility] [address] [place], [address] EST GFR - AA 90 mL/min Normal >60 [facility] Comment on above: Result Comment: Afri can Brazilian GFR Calc Performed By: #### L 100.0100, L300.3900, L300.4310, L500.2500 #### [facility] [address] [place], [address] GAP 6 Normal 5-15 [facility] Comment on above: Performed By: #### L 100.0100, L300.3900, L300.4310, L500.2500 #### [facility] [address] [place], [address] GFR/1.73 sq M.predicted among non-blacks MDRD (S/P/Bld) [Vol rate/Area] 75 mL/min/{1.73_m2} Normal >60 [facility] Comment on above: Result Comment: Non- GFR Calc Performed By: #### L 100.0100, L300.3900, L300.4310, L500.2500 #### [facility] [address] [place], [address] Glucose [Mass/Vol] 136 mg/dL High 74-106 [facility] Comment on above: Result Comment: Fast ing Glucose result greater than or equal to 126 mg/dL suggests DIABETES MELLITUS per A.D.A. criteria. Performed By: #### L 100.0100, L300.3900, L300.4310, L500.2500 #### [facility] [address] [place], [address] Potassium [Moles/Vol] 3.5 mmol/L Normal 3.5-5.1 [facility] Comment on above: Performed By: #### L 100.0100, L300.3900, L300.4310, L500.2500 #### [facility] [address] [place], [address] Sodium [Moles/Vol] 141 mmol/L Normal 136-145 [facility] Comment on above: Performed By: #### L 100.0100, L300.3900, L300.4310, L500.2500 #### [facility] [address] [place], [address] Urea nitrogen [Mass/Vol] 17 mg/dL Normal 7-18 [facility] Comment on above: Performed By: #### L 100.0100, L300.3900, L300.4310, L500.2500 #### [facility] [address] [place], [address] CBC W Auto Differential pane l (Bld)on 03-11-2024 Basophils (Bld) [#/Vol] 0.04 10*3/uL Normal <0.11 [facility] Comment on above: Order Comment: Speci men Type: BLOOD SPECIMEN Ordering Facility: [facility] Address: [address] [place] [address] Performed By: #### 5 7021-8 #### [facility] CLIA [id number] [address] Basophils/100 WBC (Bld) 0.3 % Normal [facility] Comment on above: Order Comment: Speci men Type: BLOOD SPECIMEN Ordering Facility: [facility] Address: [address] [place] [address] Performed By: #### 5 7021-8 #### [facility] CLIA [id number] [address] Differential cell count method Nom (Bld) Auto Normal [facility] Comment on above: Order Comment: Speci men Type: BLOOD SPECIMEN Ordering Facility: [facility] Address: [address] [place] [address] Performed By: #### 5 7021-8 #### [facility] CLIA [id number] [address] [facility] Eosinophils (Bld) [#/Vol] 0.08 10*3/uL Normal <0.46 [facility] Comment on above: Order Comment: Speci men Type: BLOOD SPECIMEN Ordering Facility: [facility] Address: [address] [place] [address] Performed By: #### 5 7021-8 #### [facility] CLIA [id number] [address] Eosinophils/100 WBC (Bld) 0.6 % Normal [facility] Comment on above: Order Comment: Speci men Type: BLOOD SPECIMEN Ordering Facility: [facility] Address: [address] [place] [address] Performed By: #### 5 7021-8 #### [facility] CLIA [id number] [address] Erythrocyte distribution width (RBC) [Ratio] 13.1 % Normal 11.5-15.0 [facility] Comment on above: Order Comment: Speci men Type: BLOOD SPECIMEN Ordering Facility: [facility] Address: [address] [place] [address] Performed By: #### 5 7021-8 #### [facility] CLIA [id number] [address] [place] Hematocrit (Bld) [Volume fraction] 42.5 % Normal 39.0-51.0 [facility] Comment on above: Order Comment: Speci men Type: BLOOD SPECIMEN Ordering Facility: [facility] Address: [address] [place] [address] Performed By: #### 5 7021-8 #### [facility] CLIA [id number] [address] [place] Hemoglobin (Bld) [Mass/Vol] 14.2 g/dL Normal 13.0-17.0 [facility] Comment on above: Order Comment: Speci men Type: BLOOD SPECIMEN Ordering Facility: [facility] Address: [address] [place] [address] Performed By: #### 5 7021-8 #### [facility] CLIA [id number] [address] [place] Immature granulocytes (Bld) [#/Vol] 0.05 10*3/uL Normal <0.10 [facility] Comment on above: Order Comment: Speci men Type: BLOOD SPECIMEN Ordering Facility: [facility] Address: [address] [place] [address] Performed By: #### 5 7021-8 #### [facility] CLIA [id number] [address] [place] Immature granulocytes/100 WBC (Bld) 0.4 % Normal [facility] Comment on above: Order Comment: Speci men Type: BLOOD SPECIMEN Ordering Facility: [facility] Address: [address] [place] [address] Performed By: #### 5 7021-8 #### [facility] CLIA [id number] [address] [place] [address] [place] Lymphocytes (Bld) [#/Vol] 2.06 10*3/uL Normal 1.00-4.00 [facility] Comment on above: Order Comment: Speci men Type: BLOOD SPECIMEN Ordering Facility: [facility] Address: [address] [place] [address] Performed By: #### 5 7021-8 #### [facility] CLIA [id number] [address] Lymphocytes/100 WBC (Bld) 16.3 % Normal [facility] Comment on above: Order Comment: Speci men Type: BLOOD SPECIMEN Ordering Facility: [facility] Address: [address] [place] [address] Performed By: #### 5 7021-8 #### [facility] CLIA [id number] [address] MCH (RBC) [Entitic mass] 30.7 pg Normal 26.0-34.0 [facility] Comment on above: Order Comment: Speci men Type: BLOOD SPECIMEN Ordering Facility: [facility] Address: [address] [place] [address] Performed By: #### 5 7021-8 #### [facility] CLIA [id number] [address] MCHC (RBC) [Mass/Vol] 33.4 g/dL Normal 30.5-36.0 [facility] Comment on above: Order Comment: Speci men Type: BLOOD SPECIMEN Ordering Facility: [facility] Address: [address] [place] [address] Performed By: #### 5 7021-8 #### [facility] CLIA [id number] [address] MCV (RBC) [Entitic vol] 91.8 fL Normal 80.0-100.0 [facility] Comment on above: Order Comment: Speci men Type: BLOOD SPECIMEN Ordering Facility: [facility] Address: [address] [place] [address] Performed By: #### 5 7021-8 #### [facility] CLIA [id number] [address] [place] [address] [place] Monocytes (Bld) [#/Vol] 1.42 10*3/uL High <0.87 [facility] Comment on above: Order Comment: Speci men Type: BLOOD SPECIMEN Ordering Facility: [facility] Address: [address] [place] [address] Performed By: #### 5 7021-8 #### [facility] CLIA [id number] [address] [place] Monocytes/100 WBC (Bld) 11.2 % Normal [facility] Comment on above: Order Comment: Speci men Type: BLOOD SPECIMEN Ordering Facility: [facility] Address: [address] [place] [address] Performed By: #### 5 7021-8 #### [facility] CLIA [id number] [address] [place] Neutrophils (Bld) [#/Vol] 9.01 10*3/uL High 1.45-7.50 [facility] Comment on above: Order Comment: Speci men Type: BLOOD SPECIMEN Ordering Facility: [facility] Address: [address] [place] [address] Performed By: #### 5 7021-8 #### [facility] CLIA [id number] [address] [place] Neutrophils/100 WBC (Bld) 71.2 % Normal [facility] Comment on above: Order Comment: Speci men Type: BLOOD SPECIMEN Ordering Facility: [facility] Address: [address] [place] [address] Performed By: #### 5 7021-8 #### [facility] CLIA [id number] [address] [place] [address] [place] Nucleated RBC (Bld) [#/Vol] 10*3/uL Normal <0.01 [facility] Comment on above: Order Comment: Speci men Type: BLOOD SPECIMEN Ordering Facility: [facility] Address: [address] [place] [address] Performed By: #### 5 7021-8 #### [facility] CLIA [id number] [address] [place] Nucleated RBC/100 WBC (Bld) [Ratio] 0.0 /100 WBC Normal [facility] Comment on above: Order Comment: Speci men Type: BLOOD SPECIMEN Ordering Facility: [facility] Address: [address] [place] [address] Performed By: #### 5 7021-8 #### [facility] CLIA [id number] [address] [place] [address] [place] Platelet mean volume (Bld) [Entitic vol] 9.8 fL Normal 9.0-12.7 [facility] Comment on above: Order Comment: Speci men Type: BLOOD SPECIMEN Ordering Facility: [facility] Address: [address] [place] [address] Performed By: #### 5 7021-8 #### [facility] CLIA [id number] [address] [place] Platelets (Bld) [#/Vol] 268 10*3/uL Normal 150-400 [facility] Comment on above: Order Comment: Speci men Type: BLOOD SPECIMEN Ordering Facility: [facility] Address: [address] [place] [address] Performed By: #### 5 7021-8 #### [facility] CLIA [id number] [address] [place] RBC (Bld) [#/Vol] 4.63 10*6/uL Normal 4.20-6.00 [facility] Comment on above: Order Comment: Speci men Type: BLOOD SPECIMEN Ordering Facility: [facility] Address: [address] [place] [address] Performed By: #### 5 7021-8 #### [facility] CLIA [id number] [address] [place] WBC (Bld) [#/Vol] 12.66 10*3/uL High 3.70-11.00 [facility] Comment on above: Order Comment: Speci men Type: BLOOD SPECIMEN Ordering Facility: [facility] Address: [address] [place] [address] Performed By: #### 5 7021-8 #### [id number] [address] [place] [address] [place] CBC W/Diff, Automatedon 10- Absolute Lymph 2.34 X10 3/uL Normal 0.83-4.51 [facility] Comment on above: Performed By: #### L 100.0100, L300.3900, L300.4310, L500.2500 #### [facility] [address] [place], [address] Absolute Neut 7.2 X10 3/uL Normal 2.0-7.7 [facility] Comment on above: Performed By: #### L 100.0100, L300.3900, L300.4310, L500.2500 #### [facility] [address] [place], [address] Basophils/100 WBC (Bld) 0.6 % Normal 0-1 [facility] Comment on above: Performed By: #### L 100.0100, L300.3900, L300.4310, L500.2500 #### [facility] [address] [place], [address] Eosinophils/100 WBC (Bld) 3.1 % Normal 0-5 [facility] Comment on above: Performed By: #### L 100.0100, L300.3900, L300.4310, L500.2500 #### [facility] [address] [place], [address] Erythrocyte distribution width (RBC) [Ratio] 13.0 % Normal 11.6-14.6 [facility] Comment on above: Performed By: #### L 100.0100, L300.3900, L300.4310, L500.2500 #### [facility] [address] [place], [address] Hematocrit (Bld) [Volume fraction] 42.5 % Normal 40-54 [facility] Comment on above: Performed By: #### L 100.0100, L300.3900, L300.4310, L500.2500 #### [facility] [address] [place], [address] Hemoglobin (Bld) [Mass/Vol] 13.8 g/dL Normal 13.0-16.5 [facility] Comment on above: Performed By: #### L 100.0100, L300.3900, L300.4310, L500.2500 #### [facility] [address] [place], [address] IG% 0.300 Normal 0.0-0.9 [facility] Comment on above: Result Comment: IG% - Immature Granulocytes (promyelocytes, myelocytes and metamyelocytes) > 1% indicates that a LEFT SHIFT is Present. Performed By: #### L 100.0100, L300.3900, L300.4310, L500.2500 #### [facility] [address] [place], [address] Lymphocytes/100 WBC (Bld) 21.9 % Normal 19-41 [facility] Comment on above: Performed By: #### L 100.0100, L300.3900, L300.4310, L500.2500 #### [facility] [address] [place], [address] MCH (RBC) [Entitic mass] 30.1 pg Normal 27.0-32.0 [facility] Comment on above: Performed By: #### L 100.0100, L300.3900, L300.4310, L500.2500 #### [facility] [address] [place], [address] MCHC (RBC) [Mass/Vol] 32.5 g/dL Normal 32-36 [facility] Comment on above: Performed By: #### L 100.0100, L300.3900, L300.4310, L500.2500 #### [facility] [address] [place], [address] MCV (RBC) [Entitic vol] 92.6 fL Normal 80-94 [facility] Comment on above: Performed By: #### L 100.0100, L300.3900, L300.4310, L500.2500 #### [facility] [address] [place], [address] Monocytes/100 WBC (Bld) 7.0 % Normal 0-10 [facility] Comment on above: Performed By: #### L 100.0100, L300.3900, L300.4310, L500.2500 #### [facility] [address] [place], [address] Neutrophils/100 WBC (Bld) 67.1 % Normal 47-70 [facility] Comment on above: Performed By: #### L 100.0100, L300.3900, L300.4310, L500.2500 #### [facility] [address] [place], [address] Nucleated RBC (Bld) [#/Vol] 0 10*3/uL Normal 0-5 [facility] Comment on above: Performed By: #### L 100.0100, L300.3900, L300.4310, L500.2500 #### [facility] [address] [place], [address] Platelet mean volume (Bld) [Entitic vol] 9.9 fL Normal 6.2-12.0 [facility] Comment on above: Performed By: #### L 100.0100, L300.3900, L300.4310, L500.2500 #### [facility] [address] [place], [address] Platelets (Bld) [#/Vol] 291 10*3/uL Normal 150-450 [facility] Comment on above: Performed By: #### L 100.0100, L300.3900, L300.4310, L500.2500 #### [facility] [address] [place], [address] RBC (Bld) [#/Vol] 4.59 10*6/uL Low 4.6-6.2 [facility] Comment on above: Performed By: #### L 100.0100, L300.3900, L300.4310, L500.2500 #### [facility] [address] [place], [address] RDW SD 44.6 fl High 35.1-43.9 [facility] Comment on above: Performed By: #### L 100.0100, L300.3900, L300.4310, L500.2500 #### [facility] [address] [place], [address] WBC (Bld) [#/Vol] 10.7 10*3/uL Normal 4.4-11.0 [facility] Comment on above: Performed By: #### L 100.0100, L300.3900, L300.4310, L500.2500 #### [facility] [address] [place], [address] CBC panel Auto (Bld)on 03-11 Erythrocyte distribution width (RBC) [Ratio] 13.2 % Normal 11.5-15.0 [facility] Comment on above: Order Comment: Speci men Type: BLOOD SPECIMEN Ordering Facility: [facility] Address: [address] [place] [address] Performed By: #### 5 8410-2 #### [facility] CLIA [id number] [address] [place] [address] [place] Hematocrit (Bld) [Volume fraction] 43.2 % Normal 39.0-51.0 [facility] Comment on above: Order Comment: Speci men Type: BLOOD SPECIMEN Ordering Facility: [facility] Address: [address] [place] [address] Performed By: #### 5 8410-2 #### [facility] CLIA [id number] [address] Hemoglobin (Bld) [Mass/Vol] 14.4 g/dL Normal 13.0-17.0 [facility] Comment on above: Order Comment: Speci men Type: BLOOD SPECIMEN Ordering Facility: [facility] Address: [address] [place] [address] Performed By: #### 5 8410-2 #### [facility] CLIA [id number] [address] MCH (RBC) [Entitic mass] 30.8 pg Normal 26.0-34.0 [facility] Comment on above: Order Comment: Speci men Type: BLOOD SPECIMEN Ordering Facility: [facility] Address: [address] [place] [address] Performed By: #### 5 8410-2 #### [facility] CLIA [id number] [address] MCHC (RBC) [Mass/Vol] 33.3 g/dL Normal 30.5-36.0 [facility] Comment on above: Order Comment: Speci men Type: BLOOD SPECIMEN Ordering Facility: [facility] Address: [address] [place] [address] Performed By: #### 5 8410-2 #### [facility] CLIA [id number] [address] MCV (RBC) [Entitic vol] 92.3 fL Normal 80.0-100.0 [facility] Comment on above: Order Comment: Speci men Type: BLOOD SPECIMEN Ordering Facility: [facility] Address: [address] [place] [address] Performed By: #### 5 8410-2 #### [facility] CLIA [id number] [address] Nucleated RBC (Bld) [#/Vol] 10*3/uL Normal <0.01 [facility] Comment on above: Order Comment: Speci men Type: BLOOD SPECIMEN Ordering Facility: [facility] Address: [address] [place] [address] Performed By: #### 5 8410-2 #### [facility] CLIA [id number] 1 [place] [address] [place] Platelet mean volume (Bld) [Entitic vol] 10.0 fL Normal 9.0-12.7 [facility] Comment on above: Order Comment: Speci men Type: BLOOD SPECIMEN Ordering Facility: [facility] Address: [address] [place] [address] Performed By: #### 5 8410-2 #### [facility] CLIA [id number] [address] [place] Platelets (Bld) [#/Vol] 261 10*3/uL Normal 150-400 [facility] Comment on above: Order Comment: Speci men Type: BLOOD SPECIMEN Ordering Facility: [facility] Address: [address] [place] [address] Performed By: #### 5 8410-2 #### [facility] CLIA [id number] 1 [place] [address] [place] RBC (Bld) [#/Vol] 4.68 10*6/uL Normal 4.20-6.00 [facility] Comment on above: Order Comment: Speci men Type: BLOOD SPECIMEN Ordering Facility: [facility] Address: [address] [place] [address] Performed By: #### 5 8410-2 #### [facility] CLIA [id number] 1 [place] [address] [place] WBC (Bld) [#/Vol] 14.51 10*3/uL High 3.70-11.00 [facility] Comment on above: Order Comment: Speci men Type: BLOOD SPECIMEN Ordering Facility: [facility] Address: [address] [place] [address] Performed By: #### 5 8410-2 #### [facility] CLIA [id number] [address] CONFIRM BLOOD TYPEon 024 ABO A Normal [facility] Comment on above: Order Comment: Speci men Type: BLOOD SPECIMENOrdering Facility: [facility] Address: [address] [place] [address] Performed By: #### C ONABO ####[facility] [id number] [address] Rh Nom (Bld) Positive Normal [facility] Comment on above: Order Comment: Speci men Type: BLOOD SPECIMENOrdering Facility: [facility] Address: [address] [place] [address] Performed By: #### C ONABO ####[facility] [id number] [address] Comprehensive metabolic 2000 panelon 03-11-2024 Albumin [Mass/Vol] 4.3 g/dL Normal 3.9-4.9 [facility] Comment on above: Order Comment: Speci men Type: BLOOD SPECIMEN Ordering Facility: [facility] Address: [address] [place] [address] Performed By: #### 2 4323-8, 3040-3 #### [facility] CLIA [id number] [address] ALP [Catalytic activity/Vol] 67 U/L Normal 38-113 [facility] Comment on above: Order Comment: Speci men Type: BLOOD SPECIMEN Ordering Facility: [facility] Address: [address] [place] [address] Performed By: #### 2 4323-8, 3040-3 #### [facility] CLIA [id number] [address] ALT With P-5'-P [Catalytic activity/Vol] 28 U/L Normal 10-54 [facility] Comment on above: Order Comment: Speci men Type: BLOOD SPECIMEN Ordering Facility: [facility] Address: [address] [id number] Performed By: #### 2 4323-8, 3040-3 #### [facility] CLIA [id number] [address] [place] [address] [place] Anion gap [Moles/Vol] 12 mmol/L Normal 8-15 [facility] Comment on above: Order Comment: Speci men Type: BLOOD SPECIMEN Ordering Facility: [facility] Address: [address] [place] [address] Performed By: #### 2 4323-8, 0-3 #### [facility] CLIA [id number] [address] STATES OF [facility] AST With P-5'-P [Catalytic activity/Vol] 31 U/L Normal 14-40 [facility] Comment on above: Order Comment: Speci men Type: BLOOD SPECIMEN Ordering Facility: [facility] Address: [address] [place] [address] Performed By: #### 2 4328, 0-3 #### [facility] CLIA [id number] 1 [place] [address] [place] Bilirubin [Mass/Vol] 0.2 mg/dL Normal 0.2-1.3 [facility] Comment on above: Order Comment: Speci men Type: BLOOD SPECIMEN Ordering Facility: [facility] Address: [address] [place] [address] Performed By: #### 2 4323-8, 0-3 #### [facility] CLIA [id number] [address] [place] [address] [place] Calcium [Mass/Vol] 9.4 mg/dL Normal 8.5-10.2 [facility] Comment on above: Order Comment: Speci men Type: BLOOD SPECIMEN Ordering Facility: [facility] Address: [address] [place] [address] Performed By: #### 2 4323-8, 3040-3 #### [facility] CLIA [id number] [address] [place] [address] [place] Chloride [Moles/Vol] 103 mmol/L Normal 98-107 [facility] Comment on above: Order Comment: Speci men Type: BLOOD SPECIMEN Ordering Facility: [facility] Address: [address] [place] [address] Performed By: #### 2 4323-8, 3040-3 #### [facility] CLIA [id number] [address] OF [facility] CO2 [Moles/Vol] 25 mmol/L Normal 22-30 [facility] Comment on above: Order Comment: Speci men Type: BLOOD SPECIMEN Ordering Facility: [facility] Address: [address] [place] [address] Performed By: #### 2 4323-8, 3039-3 #### [facility] CLIA [id number] [address] OF [facility] Creatinine [Mass/Vol] 0.90 mg/dL Normal 0.73-1.22 [facility] Comment on above: Order Comment: Speci men Type: BLOOD SPECIMEN Ordering Facility: [facility] Address: [address] [place] [address] Performed By: #### 2 4323-8, 3039-3 #### [facility] CLIA [id number] [address] Creatinine and Glomerular filtration rate.predicted panel (S/P/Bld) 99 mL/min/1.73m??? Normal >=60 [facility] Comment on above: Order Comment: Speci men Type: BLOOD SPECIMEN Ordering Facility: [facility] Address: [address] [place] [address] Result Comment: Angela mated Glomerular Filtration Rate (eGFR) is calculated using the 2020 CKD-EPI creatinine equation. This equation utilizes serum creatinine, sex, and age as parameters. The creatinine assay has traceable calibration to isotope dilution-mass spectrometry. Refer to KDIGO guidelines for clinical interpretation. In patients with unstable renal function, e.g. those with acute kidney injury, the eGFR may not accurately reflect actual GFR. Performed By: #### 2 4323-8, 0-3 #### [facility] CLIA [id number] 1 [place] [address] [place] Glucose [Mass/Vol] 129 mg/dL High 74-99 [facility] Comment on above: Order Comment: Patrick rojas Type: BLOOD SPECIMEN Ordering Facility: [facility] Address: [address] [place] [address] Result Comment: The [place] Diabetes Association (ADA) provides guidance for cutoff values for fasting glucose and random glucose. The ADA defines fasting as no caloric intake for at least 8 hours. Fasting plasma glucose results between 100 to 125 mg/dL indicate increased risk for diabetes (prediabetes). Fasting plasma glucose results greater than or equal to 126 mg/dL meet the criteria for diagnosis of diabetes. In the absence of unequivocal hyperglycemia, results should be confirmed by repeat testing. In a patient with classic symptoms of hyperglycemia or hyperglycemic crisis, random plasma glucose results greater than or equal to 200 mg/dL meet the criteria for diagnosis of diabetes. Reference: Standards of Medical Care in Diabetes 2016, [place] Diabetes Association. Diabetes Care. 2016.39(Suppl 1). Performed By: #### 2 4323-8, 0-3 #### [facility] CLIA [id number] 1 [place] [address] [place] Potassium [Moles/Vol] 4.4 mmol/L Normal 3.7-5.1 [facility] Comment on above: Order Comment: Patrick rojas Type: BLOOD SPECIMEN Ordering Facility: [facility] Address: [address] [place] [address] Performed By: #### 2 4323-8, 0-3 #### [facility] CLIA [id number] 1 [place] [address] [place] Protein [Mass/Vol] 6.9 g/dL Normal 6.3-8.0 [facility] Comment on above: Order Comment: Patrick rojas Type: BLOOD SPECIMEN Ordering Facility: [facility] Address: [address] [place] [address] Performed By: #### 2 4323-8, 3040-3 #### [facility] CLIA [id number] 1 [place] [address] [place] Sodium [Moles/Vol] 140 mmol/L Normal 136-144 [facility] Comment on above: Order Comment: Speci men Type: BLOOD SPECIMEN Ordering Facility: [facility] Address: [address] [id number] Performed By: #### 2 4323-8, 3040-3 #### [facility] CLIA [id number] [address] Urea nitrogen [Mass/Vol] 19 mg/dL Normal 9-24 [facility] Comment on above: Order Comment: Speci men Type: BLOOD SPECIMEN Ordering Facility[facility] Address: [address] [place] [address] Performed By: #### 2 4323-8, 3040-3 #### [facility] CLIA [id number] [address] ED NOTEon 03-11-2024 ED NOTE HNO ID: [id number] Author: MONALISA ACE RN Service: Emergency Medicine Author Type: Registered Nurse Type: ED Notes Filed: 03/11/2024 17:34 Note Text: [email or web address] [facility] ED NOTE HNO ID: [id number] Author: MARIANA HULL Medic Service: ? Author Type: Plunket Nurse and Pot Liner Type: ED Notes Filed: 03/11/2024 16:15 Note Text: Bed: 12-ED Expected date: 03/11/24 Expected time: 3:38 PM Means of arrival: [facility] Comments: [facility] Normal [facility] ED PROV NOTEon 03-11-2024 ED PROV NOTE HNO ID: [id number] Author: MONAE HEMPHILL MD Service: Emergency Medicine Author Type: Resident Type: ED Provider Notes Filed: 03/13/2024 22:09 Note Text: Attestation signed by Monae Hemphill MD at 03/13/2024 10:09 PM Attending Note I personally saw and examined the patient. I performed a substantive portion of the care and I performed all of the medical decision making. I reviewed the resident's note. I agree with the resident's assessment and plan unless otherwise noted. I was present for the significant portion of the procedure(s). Signature: Monae Hemphill MD Date: 03/13/2024 Time: 10:09 PM ED Provider Note Patient Name: Richard Head : 1965 SERVICE DATE: 03/11/24 History No chief complaint on file. 58-year-old male presents to the emergency department as a transfer from [facility] for orthopedics evaluation. Patient states that there were fallen trees in his backyard and he was attempting to cut branches off of one tree when the other tree fell onto his left lower extremity. At [facility], patient was diagnosed with a tib-fib fracture which was reduced and splinted. Patient denying numbness or tingling in his extremities. No other traumatic injuries or wounds. Denies head injury or loss of consciousness. States that his pain was controlled at the [facility] but is now returning. Of note, patient not currently on anticoagulants. No past medical history on file. No past surgical history on file. No family history on file. Social History Tobacco Use Smoking status: Not on file Smokeless tobacco: Not on file Substance and Sexual Activity Alcohol use: Not on file Drug use: Not on file Sexual activity: Not on file ALLERGIES Not on File Review of Systems Constitutional: Negative for chills and fever. Eyes: Negative for visual disturbance. Respiratory: Negative for shortness of breath. Cardiovascular: Negative for chest pain and palpitations. Gastrointestinal: Negative for abdominal pain, nausea and vomiting. Musculoskeletal: Left lower extremity pain Neurological: Negative for dizziness, light-headedness and headaches. All other systems reviewed and are negative. Physical Exam Vitals BP Pulse Temp Temp src Resp SpO2 Weight Height -- -- -- -- -- -- -- -- Physical Exam Vitals and nursing note reviewed. Constitutional: Appearance: Normal appearance. HENT: Head: Normocephalic and atraumatic. Mouth/Throat: Mouth: Mucous membranes are moist. Pharynx: Oropharynx is clear. Eyes: Extraocular Movements: Extraocular movements intact. Conjunctiva/sclera: Conjunctivae normal. Pupils: Pupils are equal, round, and reactive to light. Cardiovascular: Rate and Rhythm: Normal rate and regular rhythm. Pulses: Normal pulses. Heart sounds: Normal heart sounds. Pulmonary: Effort: Pulmonary effort is normal. Breath sounds: Normal breath sounds. Abdominal: General: Abdomen is flat. Bowel sounds are normal. Palpations: Abdomen is soft. Musculoskeletal: Cervical back: Normal range of motion and neck supple. No rigidity or tenderness. Comments: Knee abrasion noted to the left side. Lower leg splint in place. Patient has no sensation deficits. Pulses intact. Difficulty with ROM due to pain. Neurological: Mental Status: He is alert. Diagnostic Testing ED Labs Ordered and Reviewed - No data to display Procedures ED Course / Clinical Impression Clinical Impressions as of 03/11/241935 Closed fracture of left tibia and fibula, initial encounter MDM / Disposition / Plan 58-year old male presented to the emergency department for evaluation of left-sided tib-fib fracture. Upon arrival, patient was not in acute distress. Vital signs were stable. Patient was provided with additional Dilaudid for pain control and also provided with a Tdap vaccine. Laboratory work obtained. Reactive leukocytosis without evidence of profound anemia. CMP negative for acute electrolyte derangements. PT and PTT within normal range. Lipase and ethanol not acutely elevated. At this time, I do not believe patient needs further trauma imaging as injury isolated to his extremity and clinical examination overall benign per my trauma assessment. Exam does not reveal evidence of neurovascular abnormalities. Orthopedic surgery services consulted and recommend patient to be admitted for operation tomorrow. Patient was admitted to Dr. Burch's care for surgical management in stable conditions. Management Management of the patient was discussed with:admitting team and admitting team SIGNATURE: Triny Azar MD Emergency Medicine Resident, PGY-2 [facility] This note was created using [email or web address] dictation software. Every att (more content not included)... Normal [facility] Emergency Department Summary on 03-11-2024 Emergency Department Summary [facility] Medical Records Department [address] [place] [address] Emergency Department Summary 03/11/24 MR#: [id number] Acct: [id number] Name: RICHARD HEAD Rep #: [id number] : 1965 58 From: Garrison Velásquez DO PCP: [facility] Status:DEP ER Location: ED HPI History of Present Illness Chief Complaint: Trauma Informant: patient and EMS Narrative Narrative: 58-year-old male presenting to the emergency room via EMS with a chief complaint of left leg injury. Patient was cutting down a tree when he came down and struck his left leg. EMS notes no obvious deformity. He was vacuum splinted. Patient denies any other injuries. He denies any significant medical problems. [facility] Medical History Arthritis Hernia Infected sebaceous cyst of skin Home Medications ???Medication ???Instructions ???Recorded ???Last Taken ???Type NK 02/04/23 Unknown History Allergy/AdvReac Type Severity Reaction Status Date / Time No Known Allergies Allergy Verified 03/26/23 09:46 Social History Smoking Status: Former smoker ROS ROS ED Constitutional Constitutional ED: Denies chills or weight loss Eyes Eyes: Denies change in vision or diplopia ENT ENT ED: Denies ear pain, rhinorrhea or sore throat Cardiovascular Cardiovascular: Denies chest pain, orthopnea, palpitations or racing heartbeat Respiratory/Chest Respiratory/Chest: Denies cough, dyspnea or orthopnea Gastrointestinal Gastrointestinal: Denies abdominal pain, diarrhea, nausea or vomiting Genitourinary Genitourinary ED: Denies dysuria, hematuria or urinary frequency Musculoskeletal Musculoskeletal: Reports other Details: See history of present illness ; Denies arthralgias, back pain, myalgias or neck pain Integumentary Denies abscess or rash Neurologic Neurologic: Denies headache(s) or weakness Psychiatric Psychiatric: Denies anxiety, depression, suicidal ideation or suicidal thoughts Endocrine Endocrinology: Denies polydipsia, polyphagia or polyuria Allergic/Immunologic Allergic/Immunologic ED: Denies mouth swelling, tongue swelling or urticaria EXAM Physical Exam Const Vital Signs: 03/11/24 11:49 03/11/24 11:59 03/11/24 13:26 Temperature 98.6 F 97.4 F L Temperature Source Temporal Oral Pulse Rate 70 74 Pulse Rate [1 (Initial Baseline)] Pulse Rate [2] Pulse Rate [3] Pulse Rate [4] Respiratory Rate 18 36 H Respiratory Rate [1 (Initial Baseline)] Respiratory Rate [2] Respiratory Rate [3] Respiratory Rate [4] Respiratory Effort Normal Non-Labored Respiratory Depth Normal Respiratory Pattern Normal Blood Pressure 120/72 123/62 H Blood Pressure [1 (Initial Baseline)] Blood Pressure [2] Blood Pressure [3] Blood Pressure Mean 88 82 Pulse Ox 96 97 99 Oxygen Delivery Method Room Air Room Air Room Air Oxygen Delivery Method [1 (Initial Baseline)] Oxygen Delivery Method [2] Oxygen Delivery Method [3] Oxygen Delivery Method [4] Oxygen Flow Rate (L/min) [1 (Initial Baseline)] Oxygen Flow Rate (L/min) [2] Oxygen Flow Rate (L/min) [3] Oxygen Flow Rate (L/min) [4] EtCo2 (Normal 35-45 , high quality CPR 10-20 ROSC>/=40mmHg EtCo2 (Normal 35-45 , high quality CPR 10-20 ROSC>/=40mmHg [2] EtCo2 (Normal 35-45 , high quality CPR 10-20 ROSC>/=40mmHg [3] EtCo2 (Normal 35-45 , high quality CPR 10-20 ROSC>/=40mmHg [4] 03/11/24 13:30 03/11/24 13:31 03/11/24 13:34 Temperature 98.5 F Temperature Source Pulse Rate 76 Pulse Rate [1 (Initial Baseline)] 85 Pulse Rate [2] 78 Pulse Rate [3] 73 Pulse Rate [4] 62 Respiratory Rate 24 H Respiratory Rate [1 (Initial Baseline)] 30 H Respiratory Rate [2] 35 H Respiratory Rate [3] 28 H Respiratory Rate [4] 28 H Respiratory Effort Respiratory Depth Respiratory Pattern Blood Pressure 128/70 H Blood Pressure [1 (Initial Baseline)] 128/70 H Blood Pressure [2] 110/76 Blood Pressure [3] 115/72 Blood Pressure Mean Pulse Ox 98 Oxygen Delivery Method Room Air Oxygen Delivery Method [1 (Initial Baseline)] Nasal Cannula Oxygen Delivery Method [2] Nasal Cannula Oxygen Delivery Method [3] Nasal Cannula Oxygen Delivery Method [4] Nasal Cannula Oxygen Flow Rate (L/min) [1 (Initial Baseline)] 2 Oxygen Flow Rate (L/min) [2] 2 Oxygen Flow Rate (L/min) [3] 3 Oxygen Flow Rate (L/min) [4] 3 EtCo2 (Normal 35-45 , high quality CPR 10-20 ROSC>/=40mmHg 35 EtCo2 (Normal 35-45 , high quality CPR 10-20 ROSC>/=40mmHg [2] 25 EtCo2 (Normal 35-45 , high quality CPR 10-20 ROSC>/=40mmHg [3] 30 EtCo2 (Normal 35-45 , high quality CPR 10-20 ROSC>/=40mmHg [4] 35 (more content not included)... Normal [facility] Ethanol [facility] 024 Ethanol [Mass/Vol] mg/dL Normal <11 [facility] Comment on above: Order Comment: Speci men Type: BLOOD SPECIMEN Order[facility] Facility[facility] Address: [address] [place] [address] Performed By: #### 5 7021-8 #### [facility] CLIA [id number] [address] [place] [address] [place] HISTORY PHYSICALon HISTORY PHYSICAL HNO ID: [id number] Author: CARISA BURCH MD Service: Orthopaedic Surgery Author Type: Physician Type: H&P Filed: 03/12/2024 07:12 Note Text: Orthopaedic Trauma Surgery Attending Addendum Reviewed resident History and Physical. The patient was personally seen and examined on 03/12/2024. Agree with resident history, physical examination, image interpretation, assessment and plan unless otherwise noted. 58 year old male was transferred to [facility] on 03[facility]11[facility]2024 for management of left tibia and fibula fractures sustained from a tree versus extremity injury. The patient was admitted to orthopaedic trauma surgery. The risks, limitations, benefits and alternatives to all treatment options including non-operative and operative management of the patient's left tibia and fibula fractures were discussed with the patient. The risks of the operation include, but are not limited to, the risks associated with general anesthesia, infection, bleeding, damage to nearby structures (such as arteries, veins, nerves, muscle, tendons, ligaments), chronic pain, post-traumatic arthritis, malunion, nonunion, deep venous thromboses, pulmonary embolism, hardware failure and the need for future operations. The patient elected to proceed with surgical treatment of the left tibia fracture and possible left fibula fracture. All questions and concerns were answered and addressed. The informed consent was reviewed. Carisa Burch MD Orthopaedic Trauma Surgery 03/12/2024 7:04 AM Orthopaedic Surgery History AND Physical Pt: RICHARD HEAD Date of Admission: 03/11/2024 Chief Complaint: Left tibia and fibula fracture HPI: 58 year old male with no significant PMH presented to [facility] 03/11/2024 as a transfer from [facility]. Patient was cutting [place] trees [place] his property when he was hit in the left leg by one of the trees. He was taken to [place] by EMS. Imaging performed during workup there showed a proximal tibia and fibular head fracture. He was transferred to [facility] for further management. Arrives in a long-leg splint. Denies use of anticoagulants. Denies history of any surgery to the left lower extremity History reviewed. No pertinent past medical history. History reviewed. No pertinent surgical history. Allergies: Patient has no known allergies. Current Facility-Administered Medications Medication Dose Route Frequency lactated ringers iv infusion 75 mL/hr INTRAVENOUS CONTINUOUS morphine 2 mg injection 2 mg INTRAVENOUS q 2 H PRN acetaminophen 1,000 mg tab(s) (TYLENOL) 1,000 mg ORAL q 6 H oxyCODONE IR 5-10 mg tab(s) (ROXICODONE) 5-10 mg ORAL q 4 H PRN No current outpatient medications on file. No family history on file. ROS: 10 pt ROS neg except in HPI O: Vitals: BP 122/79 Pulse 80 Temp 36.6 ?C (97.9 ?F) Resp 16 Ht 172.7 cm (5' 8) Wt 86.2 kg (190 lb) SpO2 100% BMI 28.89 kg/m? Physical exam: General: AANDO x 3; NAD. Cooperative throughout entire interview Head: Atraumatic, Normocephalic Neck: Supple Chest: Unlabored breathing on room air Cardiovascular: Regular pulses Abdomen: Soft, non-tender Neuro: Grossly intact Left lower Extremity: Long-leg splint clean and intact. Taken down for examination Alignment normal. No gross deformities. Focal swelling with ecchymosis over the proximal anterior falcon 10 cm abrasion over the anterior mid falcon Compartments of the thigh and leg are soft and compressible Tolerates passive stretch of the digits DP pulses palpable; BCR all digits. SILT Villegas/Sa/DP/SP/T. Motor intact EHL/DF/PF. Secondary Survey: No TTP of any other bony prominences or joints of the upper and lower extremities bilaterally except that described above. Labs: Recent Labs 03/11/24200203/11/24 1700 NA -- 140 K -- 4.4 CHLOR -- 103 CO2 -- 25 BUN -- 19 CREAT -- 0.90 GLUC -- 129* ANION -- 12 CA -- 9.4 ALB -- 4.3 AST -- 31 ALT -- 28 ALKPHOS -- 67 TBILI -- 0.2 WBC 12.66* 14.51* HB 14.2 14.4 HCT 42.5 43.2 PLT 268 261 INR -- 1.0 Imaging: -XR of the Tibia and fibula: Reviewed and demonstrates segmental middle third tibia fracture, distal fracture line appears incomplete. Also segmental fracture of the fibula A/P: 58 year old male with left segmental tibia and fibula fractures - Management per orthopedic - Consults to [facility] for medical comanagement - Weight Bearing status nonweightbearing left lower extremity - Immobilization long-leg posterior splint, maintain clean dry and intact - Pain Control - Ice and elevate as needed - DVT Prophylaxis -SCDs, hold chemoprophylaxis for OR tomorrow - Labs -preop labs ordered - Diet -regular diet; n.p.o. at midnight for OR tomorrow - Plan for surgical fixation on 03/[address] Burch - Consent placed in chart Discussed with Dr. Marcin Garcia MD Orthopaedic Surgery, PGY-1 03/11/2024 8:22 PM Please page #[phone] (more content not included)... Normal [facility] Knee 1 or 2 Viewson 03-11-20 [address] [facility] Imaging Services [address] [place] [address] Knee 1 or 2 Views MR#: [id number] Acct: [id number] Name: RICHARD HEAD Rep #: [id number] : 1965 M 58 From: Chilo Monreal MD PCP: ROSA WAKEFIELD Status: REG ER Study: Knee 1 or 2 Views Date of Exam: 03/11/24 Exam# [id number] Ordering Dr: Garrison Velásquez DO [id number] STUDY: X-RAY - LEFT KNEE REASON FOR EXAM: Male, 58 years old. trauma TECHNIQUE: 2 view(s) of the knee. COMPARISON: None. FINDINGS: Normal visualized distal femur. Incompletely imaged acute medially displaced oblique fracture of the proximal shaft of the tibia. Associated fracture of the fibular neck. Normal proximal tibiofibular articulation. Normal medial femorotibial compartment. Normal lateral femorotibial compartment. Normal patellofemoral articulation. The soft tissue structures are unremarkable. RAD/Knee 1 or 2 Views IMPRESSION: Acute fractures of the proximal shaft of the tibia and the neck of the fibula. Electronically Signed: Chilo Monreal MD at 12:59 EDT , CC: Dr. Garrison Velásquez DO; ROSA WAKEFIELD Technical Illustrator: Signed Normal [facility] Lipase SerPl-cCncon 03-11-20 Lipase [Catalytic activity/Vol] 37 U/L Normal 16-61 [facility] Comment on above: Order Comment: Speci men Type: BLOOD SPECIMEN Ordering Facility: [facility] Address: Formerly named [facility] [place] [address] Performed By: #### 2 4323-8, 3040-3 #### [facility] CLIA [id number] [address] PT panel Coag (PPP)on 2023 INR Coag (PPP) [Relative time] 1.0 {INR} Normal 0.9-1.3 [facility] Comment on above: Order Comment: Speci men Type: BLOOD SPECIMEN Ordering Facility: [facility] Address: [address] [place] [address] Result Comment: Heavenly min K Antagonist (VKA) Therapeutic Range: INR 2 to 3 (Target INR of 2.5) Note: For patients treated with VKA drugs, such as warfarin, the [employer] 2012 Guideline recommends a therapeutic INR range of 2 to 3 (target INR of 2.5). This recommendation includes high-risk patients with antiphospholipid syndrome with previous arterial or venous thromboembolism, current-generation mechanical or bioprosthetic aortic heart valve replacement. Note: Patients with mechanical aortic valve replacement and additional risk factors for thromboembolic events (atrial fibrillation, previous thromboembolism, LV dysfunction, hypercoagulable conditions) or an older generation mechanical AVR (i.e., ball in-Cage) or any mechanical MVR should have a INR therapeutic range of 2.5 to 3.5 (target INR of 3). Lily GH, et al. Chest 2012, 141:7S-47S Murphy RA et al. [facility] 2017, 70: 252-289 Performed By: #### 5 8410-2 #### [facility] CLIA [id number] [address] STATES OF [facility] PT Coag (PPP) [Time] 10.7 s Normal 9.7-13.0 [facility] Comment on above: Order Comment: Speci men Type: BLOOD SPECIMEN Ordering Facility: [facility] Address: [address] [place] [address] Performed By: #### 5 8410-2 #### [facility] CLIA [id number] [address] [place] INR Coag (PPP) [Relative time] 1.0 {INR} Normal 0.9-1.3 [facility] Comment on above: Order Comment: Patrick rojas Type: BLOOD SPECIMEN Ordering Facility: [facility] Address: [address] [place] [id number] Result Comment: Heavenly min K Antagonist (VKA) Therapeutic Range: INR 2 to 3 (Target INR of 2.5) Note: For patients treated with VKA drugs, such as warfarin, the [employer] 2012 Guideline recommends a therapeutic INR range of 2 to 3 (target INR of 2.5). This recommendation includes high-risk patients with antiphospholipid syndrome with previous arterial or venous thromboembolism, current-generation mechanical or bioprosthetic aortic heart valve replacement. Note: Patients with mechanical aortic valve replacement and additional risk factors for thromboembolic events (atrial fibrillation, previous thromboembolism, LV dysfunction, hypercoagulable conditions) or an older generation mechanical AVR (i.e., ball in-Cage) or any mechanical MVR should have a INR therapeutic range of 2.5 to 3.5 (target INR of 3). Lily GH, et al. Chest 2012, 141:7S-47S Murphy RA, et al. [facility] 2017, 70: 252-289 Performed By: #### 5 7021-8 #### [facility] CLIA [id number] [address] [place] [address] [place] PT Coag (PPP) [Time] 10.8 s Normal 9.7-13.0 [facility] Comment on above: Order Comment: Patrick rojas Type: BLOOD SPECIMEN Ordering Facility: [facility] Address: [address] [place] [address] Performed By: #### 5 7021-8 #### [facility] CLIA [id number] [address] [place] [address] [place] Partial Thromboplast Timeon 03-11-2024 aPTT Coag (Bld) [Time] 24.4 s Normal 24.1-36.[address] [facility] Comment on above: Performed By: #### L 100.0100, L300.3900, L300.4310, L500.2500 ####[facility] [id number] [place], [address] Prothrombin Time w/INRon INR Coag (PPP) [Relative time] 1.1 {INR} Normal [facility] Comment on above: Performed By: #### L 100.0100, L300.3900, L300.4310, L500.2500 #### [facility] [address] [place], [address] PT Coag (PPP) [Time] 13.9 s Normal 11.7-14.9 [facility] Comment on above: Performed By: #### L 100.0100, L300.3900, L300.4310, L500.2500 #### [facility] [address] [place], [address] TYPE + SCREENon 03-11-2024 ABO A Normal [facility] Comment on above: Order Comment: Speci men Type: BLOOD SPECIMENOrdering Facility: [facility] Address: [address] [place] [address] Performed By: #### T SCR ####[facility] [id number] [place] [address] [place] Rh Nom (Bld) Positive Normal [facility] Comment on above: Order Comment: Speci men Type: BLOOD SPECIMENOrdering Facility: [facility] Address: [address] [place] [address] Performed By: #### T SCR ####[facility] [id number] [address] STATES [place] TYPE AND SCREEN EXPIRATION 03/14/2024 23:59 Normal [facility] Comment on above: Order Comment: Speci men Type: BLOOD SPECIMENOrdering Facility: [facility] Address: [address] [place] [address] Performed By: #### T SCR ####[facility] [id number] [place] [id number] [place] Tibia Fibula 2 Viewson 03-[address] [facility] Imaging Services [address] [place] [address] Tibia Fibula 2 Views MR#: [id number] Acct: [id number] Name: RICHARD HEAD Rep #: [id number] : 1965 M 58 From: Chilo Monreal MD PCP: ROSA WAKEFIELD Status: REG ER Study: Tibia Fibula 2 Views Date of Exam: 03/11/24 Exam# [id number] Ordering Dr: Garrison Velásquez DO [id number] STUDY: X-RAY - LEFT TIBIA AND FIBULA REASON FOR EXAM: Male, 58 years old. trauma TECHNIQUE: 2 view(s) of the tibia and fibula were obtained. COMPARISON: None. FINDINGS: Acute posterior minimally displaced oblique fracture of the proximal shaft of the tibia. Another nondisplaced oblique fracture of the distal shaft of the tibia. Acute medially angulated oblique fracture of the mid shaft of the fibula. Acute fracture of the fibular neck. The soft tissue structures are unremarkable. RAD/Tibia Fibula 2 Views IMPRESSION: Multiple acute fractures of the tibia and fibula as described above. Electronically Signed: Chilo Monreal MD at 13:00 EDT , CC: Dr. Garrison Velásquez DO; ROSA WAKEFIELD Technical Illustrator: Signed Normal [facility] aPTT PPPon 03-11-2024 aPTT Coag (PPP) [Time] 25.4 s Normal 23.0-32.[address] [facility] Comment on above: Order Comment: Speci men Type: BLOOD SPECIMEN Ordering Facility[facility] Address: [address] [place] [address] Performed By: #### 5 7021-8 #### [facility] CLIA [id number] [address] OF [facility] aPTT Coag (PPP) [Time] 24.2 s Normal 23.0-32.[address] [facility] Comment on above: Order Comment: Speci men Type: BLOOD SPECIMEN Ordering Facility: [facility] Address: [address] [place] [id number] Performed By: #### 5 7021-8 #### [facility] CLIA [id number] [address] OF [facility] Low Dose CT Lung Screeningon 02-26-[address] Lung Scre[address] [facility] Imaging Services [address] [place] [id number] Lung Screening MR#: [id number] Acct: [id number] Name: RICHARD HEAD Rep #: [id number] : 1965 M 58 From: Dante Coronel MD PCP: ROSA WAKEFIELD VENTILATOR SPECIALIST-C Status: [facility] Study: Low Dose CT Lung Screening Date of Exam: 02/25 Exam# [id number] Ordering Dr: Amairani Garg NP [facility]ENTILATOR SPECIALIST-C [id number] EXAM: CT CHEST, LUNG CANCER SCREENING WITHOUT INTRAVENOUS CONTRAST CLINICAL INDICATION: SMOKER TECHNIQUE: Helically acquired images were obtained of the chest without intravenous contrast using low dose (LDCT) lung cancer screening protocol. This CT exam was performed using one or more of the following dose reduction techniques: automated exposure control, adjustment of the mA and/or kV according to patient size, and/or use of iterative reconstruction technique. COMPARISON: CT Lung Cancer Screening dated 02/01/2023 FINDINGS: LUNGS AND PLEURAL SPACES: Stable scarring at the right lung base. Centrilobular and paraseptal emphysematous changes of lungs again noted. No evidence of a lung mass or suspicious pulmonary nodule. No pleural effusion or thickening. No pneumothorax. HEART: Normal. No pericardial effusion. Normal heart size. Mild coronary artery calcification. MEDIASTINUM: Normal. No mediastinal or hilar adenopathy. Esophagus is unremarkable. No hiatal hernia. THYROID: Normal. No thyroid nodules or calcification. BONES/JOINTS: No suspicious lytic or blastic abnormality. VASCULATURE: No aortic aneurysm. LYMPH NODES: Normal. No enlarged lymph nodes. CT/Low Dose CT Lung Screening IMPRESSION: 1. No evidence of lung mass or nodule. 2. Stable diffuse pulmonary emphysema. Lung-RADS score: 1S - Negative. Additional clinically significant or potentially clinically significant findings are described. Recommend continued annual screening with a low-dose CT (LDCT) in 12 months. Electronically Signed: Dante Coronel MD at 17:50 EDT , CC: ANNE Garg; ROSA WAKEFIELD Technical Illustrator: Signed Normal [facility] Basophil percentageOrdered B y: ROSA WAKEFIELD on 05-01-2023 Bilirubin [Mass/Vol] 0.50 mg/dL 0.20-1.00 [facility] Comment on above: For patients on eltr ombopag therapy, use of Dimension [place] TBIL is not recommended. Chloride [Moles/Vol] 108 mmol/L 98-107 [facility] Cholesterol [Mass/Vol] 171 mg/dL <[address] [facility] Comment on above: <200 mg/dL Desirable 200-240 mg/dL Borderline >240 mg/dL High Risk Glucose [Mass/Vol] 103 mg/dL 74-106 [facility] Comment on above: Fasting Glucose resu lt from 100 to 125 mg/dL suggests IMPAIRED HOMEOSTASIS per A.D.A. criteria. Potassium [Moles/Vol] 4.6 mmol/L 3.5-5.1 [facility] Protein [Mass/Vol] 7.6 g/dL 6.4-8.2 [facility] Sodium [Moles/Vol] 139 mmol/L 136-145 [facility] Triglyceride [Mass/Vol] 70 mg/dL <199 [facility] Comment on above: The drugs N-Acetylcy steine and Metamizole may falsely depress this assay.Serum Triglycerides Reference Interval Normal <150 mg/dL Borderline high 150 - 199 mg/dL High 200 - 499 mg/dL Very High > or = 500 mg/dL WBC (Bld) [#/Vol] 9.7 10*3/uL 4.4-11.0 [facility] Blood erythrocytes count (nu mber/volume)Ordered By: ROSA WAKEFIELD on 05-01-2023 RBC (Bld) [#/Vol] 5.19 10*6/uL 4.6-6.2 [facility] Blood hemoglobin measurement (mass/volume)Ordered By: ROSA WAKEFIELD on 05-01-2023 Hemoglobin (Bld) [Mass/Vol] 15.5 g/dL 13.0-16.5 [facility] Blood platelet mean volumeOr dered By: [facility] on 05-01-2023 Platelet mean volume (Bld) [Entitic vol] 10.1 fL 6.2-12.0 [facility] Determination of erythrocyte mean corpuscular volume (MCV)Ordered By: ROSA WAKEFIELD on 05-01-2023 MCV (RBC) [Entitic vol] 94.6 fL 80-94 [facility] Hematocrit Auto (Bld) [Volum e fraction]Ordered By: [facility] on 05-01-2023 Hematocrit (Bld) [Volume fraction] 49.1 % 40-54 [facility] - Chemistry and C hemistry - challengeOrdered By: [facility] on 05-01-2023 ALP [Catalytic activity/Vol] 69 U/L 45-117 [facility] ALT [Catalytic activity/Vol] 40 U/L 16-61 [facility] CO2 [Moles/Vol] 31.0 mmol/L 21.0-32.0 [facility] Globulin (S) [Mass/Vol] 3.6 g/dL 2.2-4.2 [facility] Urea nitrogen/Creatinine [Mass ratio] 14.2 mg/mg 10-20 [facility] - Hematology and Cell countsOrdered By: [facility] on 05-01-2023 Erythrocyte distribution width (RBC) [Entitic vol] 48.1 fL 35.1-43.9 [facility] Erythrocyte distribution width (RBC) [Ratio] 13.8 % 11.6-14.6 [facility] MCH (RBC) [Entitic mass] 29.9 pg 27.0-32.0 [facility] MCHC Auto (RBC) [Mass/Vol]Or dered By: ROSA WAKEFIELD on 05-01-2023 MCHC (RBC) [Mass/Vol] 31.6 g/dL 32-36 [facility] No Panel InformationOrdered By: ROSA WAKEFIELD on 05-01-2023 Estimated GFR (MDRD) Amer 93 mL/min >60 [facility] Comment on above: GFR Calc Estimated GFR (MDRD) Non-Af Amer 76 mL/min >60 [facility] Comment on above: Non- GFR Calc Prostate Specific Antigen Screen 1.26 ng/mL 0.00-4.00 [facility] Comment on above: This test was perfor med using the TPSA assay method for the[employer] [place] chemistry system. Values obtained with differentassay methods cannot be used interchangably.When changing PSA assays in the course of monitoring apatient, additional sequential testing should be carriedout to confirm baseline values. Platelets bldOrdered By: ANGELA WAKEFIELD on 05-01-2023 Platelets (Bld) [#/Vol] 310 10*3/uL 150-450 [facility] Serum or plasma albumin henna urement (mass/volume)Ordered By: ROSA WAKEFIELD on 05-01-2023 Albumin [Mass/Vol] 4.0 g/dL 3.2-5.0 [facility] Serum or plasma albumin/glob ulin mass ratioOrdered By: ROSA WAKEFIELD on 05-01-2023 Albumin/Globulin [Mass ratio] 1.1 {ratio} 0.9-2.4 [facility] Serum or plasma calcium henna urement (mass/volume)Ordered By: ROSA WAKEFIELD on 05-01-2023 Calcium [Mass/Vol] 9.2 mg/dL 8.5-10.1 [facility] Serum or plasma cholesterol in HDL measurement (mass/volume)Ordered By: ROSA WAKEFIELD on 05-01-2023 Cholesterol in HDL [Mass/Vol] 52 mg/dL >40 [facility] Comment on above: The drugs N-Acetylcy steine and Metamizole may falsely depress this assay. Reference Range HDL <40 mg/dL Low HDL Cholesterol HDL >or= 60 mg/dL High HDL Cholesterol Serum or plasma cholesterol in VLDL measurement (mass/volume)Ordered By: ROSA WAKEFIELD on 05-01-2023 Cholesterol in VLDL [Mass/Vol] 14 mg/dL 5-40 [facility] Serum or plasma creatinine m easurement (mass/volume)Ordered By: ROSA WAKEFIELD on 05-01-2023 Creatinine [Mass/Vol] 1.06 mg/dL 0.70-1.30 [facility] Comment on above: The validity of the calculated GFR & GFRAA in patients over 70 years has not been determined. Clinical correlation is essential. Serum or plasma low density lipoprotein (LDL) cholesterol measurement (mass/volume)Ordered By: ROSA WAKEFIELD on 05-01-2023 Cholesterol in LDL [Mass/Vol] 105 mg/dL 0-130 [facility] Serum or plasma urea nitroge n measurement (mass/volume)Ordered By: ROSA WAKEFIELD on 05-01-2023 Urea nitrogen [Mass/Vol] 15 mg/dL 7-18 [facility] Thin prep Papanicolaou smear with manual screeningOrdered By: ROSA WAKEFIELD on 05-01-2023 Thin prep Papanicolaou smear with manual screening 20 U/L 15-37 [facility] Thin prep Papanicolaou smear with manual screening 0 5-15 [facility] Whole blood hemoglobin A1c/t otal hemoglobin ratio (mass fraction)Ordered By: ROSA WAKEFIELD on 05-01-2023 HbA1c (Bld) [Mass fraction] 4.9 % 3.8-5.6 [facility] Comment on above: Normal < 5.7 % Predi abetic 5.7 - 6.4 % Diabetic >or= 6.5 % Please note range changes. Neisseria gonorrhoeae genita l PCROrdered By: Aparna Mcwilliams on 02-06-2023 N. gonorrhoeae DNA SIMA+probe Ql (Genital specimen) [facility] No Panel InformationOrdered By: Aparna Mcwilliams on 02-06-2023 Chlamydia trachomatis (PCR) [facility] Basophil percentageOrdered B y: Aparna Mcwilliams on 02-05-2023 Basophil percentage 0 SEEN /hpf 0-5 [facility] Bilirubin Test strip Ql (U)O rdered By: Aparna Mcwilliams on 02-05-2023 Bilirubin Ql (U) Negative Negative [facility] Culture, urineOrdered By: Varsha Mcwilliams on 02-05-2023 Bacteria identified Cx Nom (U) Culture exhibits no growth. [facility] Bacteria identified Cx Nom (U) Culture exhibits no growth. [facility] Ketones Test strip Ql (U)Ord ered By: Aparna Mcwilliams on 02-05-2023 Ketones Ql (U) Negative Negative [facility] Mucus LM Ql (Urine sed)Order ed By: Aparna Mcwilliams on 02-05-2023 Mucus Ql (Urine sed) 0 SEEN /hpf [facility] Neisseria gonorrhoeae genita l PCROrdered By: Aparna Mcwilliams on 02-05-2023 N. gonorrhoeae DNA SIMA+probe Ql (Genital specimen) [facility] Nitrite Test strip Ql (U)Ord ered By: Aparna Mcwilliams on 02-05-2023 Nitrite Ql (U) Negative Negative [facility] No Panel InformationOrdered By: Aparna Mcwilliams on 02-05-2023 Chlamydia trachomatis (PCR) [facility] Protein Test strip Ql (U)Ord ered By: Aparna Mcwilliams on 02-05-2023 Protein Ql (U) Negative Negative [facility] Squamous epithelial cells de tection in urine sediment by light microscopyOrdered By: Aparna Mcwilliams on 02-05-2023 Epithelial cells.squamous LM Ql (Urine sed) 0 SEEN /hpf 0-5 [facility] Urine blood detectionOrdered By: Aparna Mcwilliams on 02-05-2023 RBC Ql (U) Negative Negative [facility] RBC Ql (U) 0 SEEN /hpf 0-5 [facility] Urine clarityOrdered By: Brad Mcwilliams on 02-05-2023 Clarity (U) Clear Clear [facility] Urine color determinationOrd ered By: Aparna Mcwilliams on 02-05-2023 Color (U) Straw Yellow [facility] Urine glucose detectionOrder ed By: Aparna Mcwilliams on 02-05-2023 Glucose Ql (U) Normal mg/dl Normal [facility] Urine leukocyte esterase det ection by dipstickOrdered By: Aparna Mcwilliams on 02-05-2023 Leukocyte esterase Test strip Ql (U) Negative Negative [facility] Urine pHOrdered By: Aparna salinas on 02-05-2023 pH (U) 6.5 [pH] 5.0 - 8.0 [facility] Urine sediment bacteria coun t by microscopy (number/high power field)Ordered By: Aparna Mcwilliams on 02-05-2023 Bacteria LM.HPF (Urine sed) [#/Area] 0 /[HPF] None Seen [facility] Urine specific gravity measu rementOrdered By: Aparna Mcwilliams on 02-05-2023 Specific gravity (U) [Rel density] 1.010 1.002-1.030 [facility] Urobilinogen Auto test strip Ql (U)Ordered By: Aparna Mcwilliams on 02-05-2023 Urobilinogen Ql (U) Normal mg/dl Normal [facility] Laboratory - Chemistry and C hemistry - challengeon 02-04-2023 Bilirubin Ql (U) Negative [facility] Glucose Ql (U) Negative [facility] Ketones Ql (U) Negative [facility] pH (U) 6.5 [pH] [facility] Specific gravity (U) [Rel density] 1.010 [facility] Urobilinogen (U) [Mass/Vol] 0.6591449 mg/dL [facility] Laboratory - Hematology and Cell countson 02-04-2023 Hemoglobin Ql (U) Negative [facility] Laboratory - Specimen inform ationon 02-04-2023 Clarity (U) Clear [facility] Color (U) Yellow [facility] Laboratory - Urinalysison Nitrite Ql (U) Negative [facility] Protein Ql (U) Negative [facility] No Panel Informationon 02-04 Urine Leukocytes Negatve [facility] Urine Non-Hemolyzed Blood Negative [facility] Basophil percentageon 2021 Cholesterol [Mass/Vol] 200 mg/dL <[address] [facility] Work Phone: Comment on above: <200 mg/dL Desirable 200-240 mg/dL Borderline >240 mg/dL High Risk Triglyceride [Mass/Vol] 69 mg/dL <199 [facility] Work Phone: Comment on above: The drugs N-Acetylcy steine and Metamizole may falsely depress this assay.Serum Triglycerides Reference Interval Normal <150 mg/dL Borderline high 150 - 199 mg/dL High 200 - 499 mg/dL Very High > or = 500 mg/dL No Panel Informationon 05-09 Hepatitis C Antibody Non-Reactive Nonreactive [facility] Work Phone: Comment on above: Non Reactive: < 0.8 Equivocal: >/= 0.8 to < 1.0 Reactive: >/= 1.0The [facility] recommends that a reactive/equivocal HCV antibody result be followed up by the HCV Nucleic Acid Amplificationtest (921178) Serum or plasma cholesterol in HDL measurement (mass/volume)on 05-09-2022 Cholesterol in HDL [Mass/Vol] 73 mg/dL >40 [facility] Work Phone: Comment on above: The drugs N-Acetylcy steine and Metamizole may falsely depress this assay. Reference Range HDL <40 mg/dL Low HDL Cholesterol HDL >or= 60 mg/dL High HDL Cholesterol Serum or plasma cholesterol in VLDL measurement (mass/volume)on 05-09-2022 Cholesterol in VLDL [Mass/Vol] 14 mg/dL 5-40 [facility] Work Phone: Serum or plasma low density lipoprotein (LDL) cholesterol measurement (mass/volume)on 05-09-2022 Cholesterol in LDL [Mass/Vol] 113 mg/dL 0-130 [facility] Work Phone: Basophil percentageon 2021 Bilirubin [Mass/Vol] 0.70 mg/dL 0.20-1.00 [facility] Work Phone: Comment on above: For patients on eltr ombopag therapy, use of Dimension [place] TBIL is not recommended. Chloride [Moles/Vol] 105 mmol/L 98-107 [facility] Work Phone: Glucose [Mass/Vol] 73 mg/dL 74-106 [facility] Work Phone: Potassium [Moles/Vol] 4.1 mmol/L 3.5-5.1 [facility] Work Phone: Protein [Mass/Vol] 7.9 g/dL 6.4-8.2 [facility] Work Phone: Sodium [Moles/Vol] 136 mmol/L 136-145 [facility] Work Phone: [phone] WBC (Bld) [#/Vol] 9.9 10*3/uL 4.4-11.0 [facility] Work Phone: [phone] Blood erythrocytes count (nu mber/volume)on 05-03-2022 RBC (Bld) [#/Vol] 5.06 10*6/uL 4.6-6.2 [facility] Work Phone: Blood hemoglobin measurement (mass/volume)on 05-03-2022 Hemoglobin (Bld) [Mass/Vol] 14.8 g/dL 13.0-16.5 [facility] Work Phone: [phone] Blood platelet mean volumeon 05-03-2022 Platelet mean volume (Bld) [Entitic vol] 10.0 fL 6.2-12.0 [facility] Work Phone: [phone] Determination of erythrocyte mean corpuscular volume (MCV)on 05-03-2022 MCV (RBC) [Entitic vol] 90.9 fL 80-94 [facility] Work Phone: [phone] Hematocrit Auto (Bld) [Volum e fraction]on 05-03-2022 Hematocrit (Bld) [Volume fraction] 46.0 % 40-54 [facility] Work Phone: [phone] Laboratory - Chemistry and C hemistry - challengeon 05-03-2022 ALP [Catalytic activity/Vol] 71 U/L 45-117 [facility] Work Phone: [phone] ALT [Catalytic activity/Vol] 40 U/L 16-61 [facility] Work Phone: [phone] CO2 [Moles/Vol] 27.0 mmol/L 21.0-32.0 [facility] Work Phone: Globulin (S) [Mass/Vol] 3.3 g/dL 2.2-4.2 [facility] Work Phone: Lipoprotein a [Moles/Vol] 80.6 nmol/L <75.0 [facility] Work Phone: Comment on above: Note: Values greater than or equal to 75.0 nmol/L may indicate an independent risk factor for CHD, but must be evaluated with caution when applied to non- populations due to the influence of genetic factors on Lp(a) across ethnicities.Performed at: [address] [id number] Director: Coleman Kumar PhD, Phone: [phone] Urea nitrogen/Creatinine [Mass ratio] 24.1 mg/mg 10-20 [facility] Work Phone: [phone] Laboratory - Hematology and Cell countson 05-03-2022 Erythrocyte distribution width (RBC) [Entitic vol] 46.6 fL 35.1-43.9 [facility] Work Phone: [phone] Erythrocyte distribution width (RBC) [Ratio] 13.9 % 11.6-14.6 [facility] Work Phone: [phone] MCH (RBC) [Entitic mass] 29.2 pg 27.0-32.0 [facility] Work Phone: [phone] MCHC Auto (RBC) [Mass/Vol]on 05-03-2022 MCHC (RBC) [Mass/Vol] 32.2 g/dL 32-36 [facility] Work Phone: No Panel Informationon 05-03 Estimated GFR (MDRD) Amer 105 mL/min >60 [facility] Work Phone: [phone] Comment on above: GFR Calc Estimated GFR (MDRD) Non-Af Amer 86 mL/min >60 [facility] Work Phone: [phone] Comment on above: Non- GFR Calc Platelets bldon 05-03-2022 Platelets (Bld) [#/Vol] 301 10*3/uL 150-450 [facility] Work Phone: [phone] Serum or plasma albumin henna urement (mass/volume)on 05-03-2022 Albumin [Mass/Vol] 4.6 g/dL 3.2-5.0 [facility] Work Phone: Serum or plasma albumin/glob ulin mass ratioon 05-03-2022 Albumin/Globulin [Mass ratio] 1.4 {ratio} 0.9-2.4 [facility] Work Phone: Serum or plasma calcium henna urement (mass/volume)on 05-03-2022 Calcium [Mass/Vol] 9.5 mg/dL 8.5-10.1 [facility] Work Phone: Serum or plasma creatinine m easurement (mass/volume)on 05-03-2022 Creatinine [Mass/Vol] 0.96 mg/dL 0.70-1.30 [facility] Work Phone: Comment on above: The validity of the calculated GFR & GFRAA in patients over 70 years has not been determined. Clinical correlation is essential. Serum or plasma urea nitroge n measurement (mass/volume)on 05-03-2022 Urea nitrogen [Mass/Vol] 23 mg/dL 7-18 [facility] Work Phone: Thin prep Papanicolaou smear with manual screeningon 05-03-2022 Thin prep Papanicolaou smear with manual screening 28 U/L 15-37 [facility] Work Phone: Thin prep Papanicolaou smear with manual screening 4 5-15 [facility] Work Phone: Whole blood hemoglobin A1c/t otal hemoglobin ratio (mass fraction)on 05-03-2022 HbA1c (Bld) [Mass fraction] 5.2 % 3.8-5.6 [facility] Work Phone: Comment on above: Normal < 5.7 % Predi abetic 5.7 - 6.4 % Diabetic >or= 6.5 % Please note range changes. Basophil percentageon 2021 WBC (Bld) [#/Vol] 11.6 10*3/uL 4.4-11.0 [facility] Work Phone: Blood erythrocytes count (nu mber/volume)on 02-03-2022 RBC (Bld) [#/Vol] 4.29 10*6/uL 4.6-6.2 [facility] Work Phone: Blood hemoglobin measurement (mass/volume)on 02-03-2022 Hemoglobin (Bld) [Mass/Vol] 12.8 g/dL 13.0-16.5 [facility] Work Phone: Blood platelet mean volumeon 02-03-2022 Platelet mean volume (Bld) [Entitic vol] 9.2 fL 6.2-12.0 [facility] Work Phone: Determination of erythrocyte mean corpuscular volume (MCV)on 02-03-2022 MCV (RBC) [Entitic vol] 92.8 fL 80-94 [facility] Work Phone: [phone] Hematocrit Auto (Bld) [Volum e fraction]on 02-03-2022 Hematocrit (Bld) [Volume fraction] 39.8 % 40-54 [facility] Work Phone: Laboratory - Hematology and Cell countson 02-03-2022 Erythrocyte distribution width (RBC) [Entitic vol] 45.9 fL 35.1-43.9 [facility] Work Phone: [phone] Erythrocyte distribution width (RBC) [Ratio] 13.4 % 11.6-14.6 [facility] Work Phone: [phone] MCH (RBC) [Entitic mass] 29.8 pg 27.0-32.0 [facility] Work Phone: [phone] MCHC Auto (RBC) [Mass/Vol]on 02-03-2022 MCHC (RBC) [Mass/Vol] 32.2 g/dL 32-36 [facility] Work Phone: No Panel Informationon 02-03 Hepatitis A IgM Antibody Negative Negative [facility] Work Phone: [phone] Hepatitis B Core IgM Antibody Negative Negative [facility] Work Phone: [phone] Hepatitis C Antibody (EIA) <0.1 s/co ratio 0.0-0.9 [facility] Work Phone: Hepatitis C Antibody Comment Comment . [facility] Work Phone: Comment on above: NegativeNot infected with HCV, unless recent infection issuspected or other evidence exists to indicate HCVinfection.Performed at: [employer] [id number] Director: Coleman Kumar PhD, Phone: [phone] Prostate Specific Antigen Screen 1.33 ng/mL 0.00-4.00 [facility] Work Phone: Comment on above: This test was perfor med using the TPSA assay method for [employer] chemistry system. Values obtained with differentassay methods cannot be used interchangably.When changing PSA assays in the course of monitoring apatient, additional sequential testing should be carriedout to confirm baseline values. Platelets bldon 02-03-2022 Platelets (Bld) [#/Vol] 576 10*3/uL 150-450 [facility] Work Phone: Serum or plasma hepatitis B virus surface antigen detection by immunoassayon 02-03-2022 HBV surface Ag IA Ql Negative Negative [facility] Work Phone: .Auto Diffon 01-18-2022 Basophil, Absolute 0.0 10 3/mcL Normal 0.0-0.2 [facility] ([place]) Basophils/100 WBC (Bld) 0.2 % Normal 0.0-2.5 [facility] [place] Eosinophil, Absolute 0.0 10 3/mcL Normal 0.0-0.4 [facility] ([place] Eosinophils/100 WBC (Bld) 0.0 % Normal 0.0-7.0 [facility] [place] Lymphocyte, Absolute 1.9 10 3/mcL Normal 0.8-3.9 [facility] [place] Lymphocytes/100 WBC (Bld) 9.1 % Low 10.0-50.0 [facility] [place] Monocyte, Absolute 2.5 10 3/mcL High 0.2-1.0 [facility] [place] Monocytes/100 WBC (Bld) 11.6 % Normal 1.7-13.0 [facility] [place] Neutrophils/100 WBC (Bld) 79.1 % Normal 37.0-80.0 [facility] [place] .GFRon 01-18-2022 GFR 97 ml/min/1.73sqm Normal [facility] [place] Comment on above: Result Comment: GFR Population mean for , Non- Americans Ages 20-29 = 116 mL/min/1.73 sq.m. Ages 30-39 = 107 mL/min/1.73 sq.m. Ages 40-49 = 99 mL/min/1.73 sq.m. Ages 50-59 = 93 mL/min/1.73 sq.m. Ages 60-69 = 85 mL/min/1.73 sq.m. Ages 70+ = 75 mL/min/1.73 sq.m. Chronic Kidney Disease: Less than 60 mL/min/1.73 square meters End Stage Renal Disease: Less than 15 mL/min/1.73 square meters Performed By: #### G , CMP #### [address] [address] GFR Non- 80 ml/min/1.73sqm Normal [facility] ([place] Comment on above: Result Comment: GFR Population mean for , Non- Americans Ages 20-29 = 116 mL/min/1.73 sq.m. Ages 30-39 = 107 mL/min/1.73 sq.m. Ages 40-49 = 99 mL/min/1.73 sq.m. Ages 50-59 = 93 mL/min/1.73 sq.m. Ages 60-69 = 85 mL/min/1.73 sq.m. Ages 70+ = 75 mL/min/1.73 sq.m. Chronic Kidney Disease: Less than 60 mL/min/1.73 square meters End Stage Renal Disease: Less than 15 mL/min/1.73 square meters Performed By: #### G , CMP #### [address] [address] .NEUABSon 01-18-2022 Neutrophil, Absolute 16.9 10 3/mcL High 2.9-6.2 [facility] [place] CBCon 01-18-2022 Erythrocyte distribution width (RBC) [Ratio] 13.8 % Normal 11.5-14.5 [facility]) Hematocrit (Bld) [Volume fraction] 38.1 % Low 42.0-52.0 [facility] [place] Hgb 12.8 G/dL Low 14.0-18.0 [facility] [place] MCH (RBC) [Entitic mass] 31.0 pg Normal 27.0-31.2 [facility] [place] MCHC 33.7 G/dL Normal 31.8-35.4 [facility] [place] MCV (RBC) [Entitic vol] 91.9 fL Normal 80.0-94.0 [facility] [place] Platelet 286 10 3/mcL Normal 130-400 [facility]) Platelet mean volume (Bld) [Entitic vol] 7.9 fL Normal 7.4-10.4 [facility]) RBC 4.15 10 6/mcL Normal 4.04-6.13 [facility]) WBC 21.3 10 3/mcL High 4.6-10.8 [facility]) CMPon 01-18-2022 Albumin Level 3.4 G/dL Low 3.5-5.0 [facility] ([place] Comment on above: Performed By: #### G , CMP #### [address] [address] Albumin/Globulin [Mass ratio] 1.1 {ratio} Normal 1.1-2.5 [facility]) Comment on above: Performed By: #### G , CMP #### [address] [address] ALP [Catalytic activity/Vol] 69 U/L Normal 40-135 [facility]) Comment on above: Performed By: #### G , CMP #### [address] [address] ALT [Catalytic activity/Vol] 25 U/L Normal 16-63 [facility]) Comment on above: Performed By: #### G , CMP #### [address] [address] AST [Catalytic activity/Vol] 12 U/L Normal 10-40 [facility] ([place] Comment on above: Performed By: #### Carmencita KURTZ, CMP #### [address] [address] Bili Total 0.5 mg/dL Normal 0.2-1.0 [facility] ([place] Comment on above: Result Comment: Use of this assay is not recommended for patients undergoing treatment with eltrombopag due to the potential for falsely elevated results. Performed By: #### Carmencita KURTZ, CMP #### [address] [address] BUN/Creatinine Ratio 15 ratio Normal 7-27 [facility] ([place] Comment on above: Performed By: #### Carmencita KURTZ, CMP #### [address] [address] Calcium [Mass/Vol] 8.5 mg/dL Normal 8.4-10.2 [facility] ([place]) Comment on above: Performed By: #### Carmencita KURTZ, CMP #### [address] [address] Chloride [Moles/Vol] 102 mmol/L Normal 98-107 [facility] ([place] Comment on above: Performed By: #### Carmencita KURTZ, CMP #### [address] [address] CO2 [Moles/Vol] 28 mmol/L Normal 22-29 [facility] ([place] Comment on above: Performed By: #### G , CMP #### [address] [address] Creatinine [Mass/Vol] 0.97 mg/dL Normal 0.70-1.30 [facility] ([place]) Comment on above: Performed By: #### G FR, CMP #### [address] [address] Electrolyte Balance 7.0 mEq/L Normal 4.0-15.0 [facility] ([place]) Comment on above: Performed By: #### G , CMP #### [address] [address] Globulin 3.0 G/dL Normal [facility] ([place] Comment on above: Performed By: #### G , CMP #### [address] [address] Glucose [Mass/Vol] 133 mg/dL High 70-105 [facility] ([place]) Comment on above: Performed By: #### G , CMP #### [address] [address] Potassium [Moles/Vol] 4.0 mmol/L Normal 3.5-5.1 [facility] ([place] Comment on above: Performed By: #### Carmencita KURTZ, CMP #### [address] [address] Sodium [Moles/Vol] 137 mmol/L Normal 136-145 [facility] ([place] Comment on above: Performed By: #### Carmencita KURTZ, CMP #### [address] [address] Total Protein 6.4 G/dL Normal 6.4-8.2 [facility] ([place] Comment on above: Performed By: #### Carmencita KURTZ, CMP #### [address] [address] Urea nitrogen [Mass/Vol] 15 mg/dL Normal 7-18 [facility] ([place] Comment on above: Performed By: #### Carmencita KURTZ, CMP #### [address] [address] LABORATORYOrdered By: Carolyne Mendoza on 01-18-2022 Albumin BCP dye [Mass/Vol] 3.4 G/dL Invalid Interpretation Code 3.5 - 5.0 G/dL AO ADM SS Albumin/Globulin [Mass ratio] 1.1 {ratio} Invalid Interpretation Code 1.1 - 2.5 ratio AO ADM SS ALP [Catalytic activity/Vol] 69 U/L Invalid Interpretation Code 40 - 135 U/L AO ADM SS ALT With P-5'-P [Catalytic activity/Vol] 25 U/L Invalid Interpretation Code 16 - 63 U/L AO ADM SS AST With P-5'-P [Catalytic activity/Vol] 12 U/L Invalid Interpretation Code 10 - 40 U/L AO ADM SS Bilirubin [Mass/Vol] 0.5 mg/dL Invalid Interpretation Code 0.2 - 1.0 mg/dL AO ADM SS Calcium [Mass/Vol] 8.5 mg/dL Invalid Interpretation Code 8.4 - 10.2 mg/dL AO ADM SS Chloride [Moles/Vol] 102 mmol/L Invalid Interpretation Code 98 - 107 mmol/L AO ADM SS CO2 [Moles/Vol] 28 mmol/L Invalid Interpretation Code 22 - 29 mmol/L AO ADM SS Creatinine [Mass/Vol] 0.97 mg/dL Invalid Interpretation Code 0.70 - 1.30 mg/dL AO ADM SS Electrolyte Balance 7.0 mEq/L Invalid Interpretation Code 4.0 - 15.0 mEq/L AO ADM SS Globulin 3.0 G/dL Invalid Interpretation Code AO ADM SS Glucose [Mass/Vol] 133 mg/dL Invalid Interpretation Code 70 - 105 mg/dL AO ADM SS Potassium [Moles/Vol] 4.0 mmol/L Invalid Interpretation Code 3.5 - 5.1 mmol/L AO ADM SS Protein [Mass/Vol] 6.4 G/dL Invalid Interpretation Code 6.4 - 8.2 G/dL AO ADM SS Sodium [Moles/Vol] 137 mmol/L Invalid Interpretation Code 136 - 145 mmol/L AO ADM SS Urea nitrogen [Mass/Vol] 15 mg/dL Invalid Interpretation Code 7 - 18 mg/dL AO ADM SS Urea nitrogen/Creatinine [Mass ratio] 15 ratio Invalid Interpretation Code 7 - 27 ratio AO ADM SS Basophil, Absolute 0.0 103/mcL Invalid Interpretation Code 0.0 - 0.2 10^3/mcL AO Workflow SS Basophils/100 WBC (Bld) 0.2 % Invalid Interpretation Code 0.0 - 2.5 % AO Workflow SS Eosinophil, Absolute 0.0 103/mcL Invalid Interpretation Code 0.0 - 0.4 10^3/mcL AO Workflow SS Eosinophils/100 WBC (Bld) 0.0 % Invalid Interpretation Code 0.0 - 7.0 % AO Workflow SS Erythrocyte distribution width (RBC) [Ratio] 13.8 % Invalid Interpretation Code 11.5 - 14.5 % AO Workflow SS Hematocrit (Bld) [Volume fraction] 38.1 % Invalid Interpretation Code 42.0 - 52.0 % AO Workflow SS Hemoglobin (Bld) [Mass/Vol] 12.8 G/dL Invalid Interpretation Code 14.0 - 18.0 G/dL AO Workflow SS Lymphocyte, Absolute 1.9 103/mcL Invalid Interpretation Code 0.8 - 3.9 10^3/mcL AO Workflow SS Lymphocytes/100 WBC (Bld) 9.1 % Invalid Interpretation Code 10.0 - 50.0 % AO Workflow SS MCH (RBC) [Entitic mass] 31.0 pg Invalid Interpretation Code 27.0 - 31.2 pg AO Workflow SS MCHC 33.7 G/dL Invalid Interpretation Code 31.8 - 35.4 G/dL AO Workflow SS MCV (RBC) [Entitic vol] 91.9 fL Invalid Interpretation Code 80.0 - 94.0 fL AO Workflow SS Monocyte, Absolute 2.5 103/mcL Invalid Interpretation Code 0.2 - 1.0 10^3/mcL AO Workflow SS Monocytes/100 WBC (Bld) 11.6 % Invalid Interpretation Code 1.7 - 13.0 % AO Workflow SS Neutrophil, Absolute 16.9 103/mcL Invalid Interpretation Code 2.9 - 6.2 10^3/mcL AO Workflow SS Neutrophils/100 WBC (Bld) 79.1 % Invalid Interpretation Code 37.0 - 80.0 % AO Workflow SS Platelet mean volume (Bld) [Entitic vol] 7.9 fL Invalid Interpretation Code 7.4 - 10.4 fL AO Workflow SS Platelets (Bld) [#/Vol] 286 103/mcL Invalid Interpretation Code 130 - 400 10^3/mcL AO Workflow SS RBC (Bld) [#/Vol] 4.15 106/mcL Invalid Interpretation Code 4.04 - 6.13 10^6/mcL AO Workflow SS WBC 21.3 103/mcL Invalid Interpretation Code 4.6 - 10.8 10^3/mcL AO Workflow SS LABORATORYOrdered By: SYSTEM SYSTEM on 01-18-2022 GFR 97 ml/min/1.73sqm Invalid Interpretation Code AO Chemistry S GFR Non- 80 ml/min/1.73sqm Invalid Interpretation Code AO Chemistry S MYCOon 01-18-2022 Mycoplasma IgM Negative Normal [facility] ([place] Comment on above: Result Comment: INTE RPRETATION OF MYCOPLASMA BY EIA (Effective 06/02/04): Negative No detectable antibodies to M. pneumoniae. Indicates absence of current or previous infection. Positive Reactive for antibodies to M. pneumoniae. Indicates a past or recent infection. Equivocal Equivocal for antibodies to M. pneumoniae. Repeat testing by an alternate method suggested. Performed By: #### M YCO ####[place] [address] Mycoplasma IgG Positive Normal [facility] ([place]) Comment on above: Result Comment: INTE RPRETATION OF MYCOPLASMA BY EIA (Effective 06/02/04): Negative No detectable antibodies to M. pneumoniae. Indicates absence of current or previous infection. Positive Reactive for antibodies to M. pneumoniae. Indicates a past or recent infection. Equivocal Equivocal for antibodies to M. pneumoniae. Repeat testing by an alternate method suggested. Performed By: #### M SHOSHANAO ####[place] [id number] .Auto Diffon 01-17-2022 Basophil, Absolute 0.1 10 3/mcL Normal 0.0-0.2 [facility] ([place]) Comment on above: Performed By: #### G FR, CMP, LIP #### [address] [address] Basophils/100 WBC (Bld) 0.4 % Normal 0.0-2.5 [facility] [place] Comment on above: Performed By: #### G FR, CMP, LIP #### [address] [address] Eosinophil, Absolute 0.0 10 3/mcL Normal 0.0-0.4 [facility] ([place]) Comment on above: Performed By: #### G FR, CMP, LIP #### [address] [address] Eosinophils/100 WBC (Bld) 0.0 % Normal 0.0-7.0 [facility] ([place] Comment on above: Performed By: #### G FR, CMP, LIP #### [address] [address] Lymphocyte, Absolute 1.4 10 3/mcL Normal 0.8-3.9 [facility] ([place] Comment on above: Performed By: #### G FR, CMP, LIP #### [address] [address] Lymphocytes/100 WBC (Bld) 7.7 % Low 10.0-50.0 [facility] ([place] Comment on above: Performed By: #### G FR, CMP, LIP #### [place] [address] [address] Monocyte, Absolute 1.8 10 3/mcL High 0.2-1.0 [facility] ([place] Comment on above: Performed By: #### G FR, CMP, LIP #### [address] [address] Monocytes/100 WBC (Bld) 9.3 % Normal 1.7-13.0 [facility] [place] Comment on above: Performed By: #### G FR, CMP, LIP #### [address] [address] Neutrophils/100 WBC (Bld) 82.6 % High 37.0-80.0 [facility] ([place] Comment on above: Performed By: #### G FR, CMP, LIP #### [address] [address] .GFRon 01-17-2022 GFR Non- 85 ml/min/1.73sqm Normal [facility] ([place] Comment on above: Result Comment: GFR Population mean for , Non- Americans Ages 20-29 = 116 mL/min/1.73 sq.m. Ages 30-39 = 107 mL/min/1.73 sq.m. Ages 40-49 = 99 mL/min/1.73 sq.m. Ages 50-59 = 93 mL/min/1.73 sq.m. Ages 60-69 = 85 mL/min/1.73 sq.m. Ages 70+ = 75 mL/min/1.73 sq.m. Chronic Kidney Disease: Less than 60 mL/min/1.73 square meters End Stage Renal Disease: Less than 15 mL/min/1.73 square meters Performed By: #### G FR, CMP, LIP ####[place] [address], [place] [address] GFR 103 ml/min/1.73sqm Normal [facility] ([place] Comment on above: Result Comment: GFR Population mean for , Non- Americans Ages 20-29 = 116 mL/min/1.73 sq.m. Ages 30-39 = 107 mL/min/1.73 sq.m. Ages 40-49 = 99 mL/min/1.73 sq.m. Ages 50-59 = 93 mL/min/1.73 sq.m. Ages 60-69 = 85 mL/min/1.73 sq.m. Ages 70+ = 75 mL/min/1.73 sq.m. Chronic Kidney Disease: Less than 60 mL/min/1.73 square meters End Stage Renal Disease: Less than 15 mL/min/1.73 square meters Performed By: #### G FR, CMP, LIP ####[place] [address] [place] [address] .MDWon 01-17-2022 Monocyte Distribution Width 18.32 Normal 0.00-20.00 [facility] ([place] Comment on above: Result Comment: For ED adult patients suspected of sepsis, MDW<=20.0 does not rule out sepsis or risk of sepsis Performed By: #### G FR, CMP, LIP ####[place] [address] [place] [address] .NEUABSon 01-17-2022 Neutrophil, Absolute 15.6 10 3/mcL High 2.9-6.2 [facility] [place] Comment on above: Performed By: #### G FR, CMP, LIP ####[place] [place] [id number] Absolute lymphocyte counton 01-17-2022 Lymphocytes Auto (Unsp spec) [#/Vol] 3.37 10*3/uL 0.83-4.51 [facility] Work Phone: Basophil percentageon 2021 Basophil percentage 0 SEEN /[facility]: Basophils/100 WBC (Bld) 0.5 % 0-1 [facility] Work Phone: Bilirubin [Mass/Vol] 0.60 mg/dL 0.20-1.00 [facility] Work Phone: Comment on above: For patients on eltr ombopag therapy, use of [employer] [place] TBIL is not recommended. Chloride [Moles/Vol] 107 mmol/L 98-107 [facility] Work Phone: Eosinophils/100 WBC (Bld) 1.6 % 0-5 [facility] Work Phone: Glucose [Mass/Vol] 100 mg/dL 74-106 [facility] Work Phone: Comment on above: Fasting Glucose resu lt from 100 to 125 mg/dL suggests IMPAIRED HOMEOSTASIS per A.D.A. criteria. Neutrophils (Bld) [#/Vol] 8.5 10*3/uL 2.0-7.7 [facility] Work Phone: Neutrophils/100 WBC (Bld) 62.6 % 47-70 [facility] Work Phone: Potassium [Moles/Vol] 4.0 mmol/L 3.5-5.1 [facility] Work Phone: Protein [Mass/Vol] 8.0 g/dL 6.4-8.2 [facility] Work Phone: Sodium [Moles/Vol] 138 mmol/L 136-145 [facility] Work Phone: [phone] WBC (Bld) [#/Vol] 13.6 10*3/uL 4.4-11.0 [facility] Work Phone: Bilirubin Test strip Ql (U)o n 01-17-2022 Bilirubin Ql (U) Negative Negative [facility] Work Phone: Blood erythrocytes count (nu mber/volume)on 01-17-2022 RBC (Bld) [#/Vol] 4.70 10*6/uL 4.6-6.2 [facility] Work Phone: [phone] Blood hemoglobin measurement (mass/volume)on 01-17-2022 Hemoglobin (Bld) [Mass/Vol] 14.8 g/dL 13.0-16.5 [facility] Work Phone: Blood lymphocytes/100 leukoc yteson 01-17-2022 Lymphocytes/100 WBC (Bld) 24.9 % 19-41 [facility] Work Phone: Blood monocytes/100 leukocyt eson 01-17-2022 Monocytes/100 WBC (Bld) 10.0 % 0-10 [facility] Work Phone: Blood platelet mean volumeon 01-17-2022 Platelet mean volume (Bld) [Entitic vol] 9.9 fL 6.2-12.0 [facility] Work Phone: CBCon 01-17-2022 Erythrocyte distribution width (RBC) [Ratio] 13.9 % Normal 11.5-14.5 [facility] ([place]) Comment on above: Performed By: #### G FR, CMP, LIP #### [address] [address] Hematocrit (Bld) [Volume fraction] 43.6 % Normal 42.0-52.0 [facility] ([place] Comment on above: Performed By: #### G FR, CMP, LIP #### [address] [address] Hgb 14.9 G/dL Normal 14.0-18.0 [facility] ([place] Comment on above: Performed By: #### G FR, CMP, LIP #### [address] [address] MCH (RBC) [Entitic mass] 31.2 pg Normal 27.0-31.2 [facility] ([place] Comment on above: Performed By: #### G FR, CMP, LIP #### [address] [address] MCHC 34.1 G/dL Normal 31.8-35.4 [facility] ([place] Comment on above: Performed By: #### G FR, CMP, LIP #### [address] [place], [place] [address] MCV (RBC) [Entitic vol] 91.5 fL Normal 80.0-94.0 [facility] ([place]) Comment on above: Performed By: #### G FR, CMP, LIP #### [place] [address] [address] Platelet 299 10 3/mcL Normal 130-400 [facility] ([place] Comment on above: Performed By: #### G FR, CMP, LIP #### [place] [address] [address] Platelet mean volume (Bld) [Entitic vol] 7.3 fL Low 7.4-10.4 [facility] ([place] Comment on above: Performed By: #### G FR, CMP, LIP #### [place] [address] [address] RBC 4.76 10 6/mcL Normal 4.04-6.13 [facility] ([place] Comment on above: Performed By: #### G FR, CMP, LIP #### [place] [address] [address] WBC 18.8 10 3/mcL High 4.6-10.8 [facility] ([place] Comment on above: Performed By: #### G FR, CMP, LIP #### [place] [address] [address] CMPon 01-17-2022 Albumin Level 4.1 G/dL Normal 3.5-5.0 [facility] ([place] Comment on above: Performed By: #### G FR, CMP, LIP ####[place] [address] [address] Albumin/Globulin [Mass ratio] 1.3 {ratio} Normal 1.1-2.5 [facility] ([place] Comment on above: Performed By: #### G FR, CMP, LIP ####[place] [address] [address] ALP [Catalytic activity/Vol] 91 U/L Normal 40-135 [facility] ([place] Comment on above: Performed By: #### G FR, CMP, LIP ####[address] [place], [place] [address] ALT [Catalytic activity/Vol] 31 U/L Normal 16-63 [facility] ([place] Comment on above: Performed By: #### G FR, CMP, LIP ####[address] [place], [place] [address] AST [Catalytic activity/Vol] 18 U/L Normal 10-40 [facility] ([place] Comment on above: Performed By: #### G FR, CMP, LIP ####[address] [place], [place] [address] Bili Total 0.7 mg/dL Normal 0.2-1.0 [facility] ([place] Comment on above: Result Comment: Use of this assay is not recommended for patients undergoing treatment with eltrombopag due to the potential for falsely elevated results. Performed By: #### Carmencita FR, CMP, LIP ####[address] [place], [place] [address] BUN/Creatinine Ratio 16 ratio Normal 7-27 [facility] ([place]) Comment on above: Performed By: #### G FR, CMP, LIP ####[address] [place], [place] [address] Calcium [Mass/Vol] 8.9 mg/dL Normal 8.4-10.2 [facility] ([place]) Comment on above: Performed By: #### Carmencita FR, CMP, LIP ####[address] [place], [place] [address] Chloride [Moles/Vol] 101 mmol/L Normal 98-107 [facility] ([place] Comment on above: Performed By: #### G FR, CMP, LIP ####[address] [place], [place] [address] CO2 [Moles/Vol] 27 mmol/L Normal 22-29 [facility] ([place] Comment on above: Performed By: #### G FR, CMP, LIP ####[address] [place], [place] [address] Creatinine [Mass/Vol] 0.92 mg/dL Normal 0.70-1.30 [facility] ([place]) Comment on above: Performed By: #### G FR, CMP, LIP ####[address] [place], [place] [address] Electrolyte Balance 10.0 mEq/L Normal 4.0-15.0 [facility] ([place]) Comment on above: Performed By: #### G FR, CMP, LIP ####[address] [place], [place] [address] Globulin 3.2 G/dL Normal [facility] ([place] Comment on above: Performed By: #### G FR, CMP, LIP ####[address] [place], [place] [address] Glucose [Mass/Vol] 107 mg/dL High 70-105 [facility] ([place]) Comment on above: Performed By: #### G FR, CMP, LIP ####[address] [place], [place] [address] Potassium [Moles/Vol] 4.3 mmol/L Normal 3.5-5.1 [facility] ([place] Comment on above: Performed By: #### G FR, CMP, LIP ####[address] [place], [place] [address] Sodium [Moles/Vol] 138 mmol/L Normal 136-145 [facility] ([place] Comment on above: Performed By: #### G FR, CMP, LIP ####[address] [place], [place] [address] Total Protein 7.3 G/dL Normal 6.4-8.2 [facility] ([place] Comment on above: Performed By: #### G FR, CMP, LIP ####[address] [place], [place] [address] Urea nitrogen [Mass/Vol] 15 mg/dL Normal 7-18 [facility] ([place] Comment on above: Performed By: #### G FR, CMP, LIP ####[address] [place], [place] [address] CT ANGIOGRAPHY CHEST W/CONTR Maria Isabel 01-17-2022 CT ANGIOGRAPHY CHEST W/CONTRAST ORIGINAL EXAMINATION: CTA OF THE CHEST 01/17/2022 12:38 pm TECHNIQUE: CTA of the chest was performed after the administration of intravenous contrast. Multiplanar reformatted images are provided for review. MIP images are provided for review. Automated exposure control, iterative reconstruction, and/or weight based adjustment of the mA/kV was utilized to reduce the radiation dose to as low as reasonably achievable. COMPARISON: None. HISTORY: ORDERING SYSTEM PROVIDED HISTORY: Reason for Exam: chest pain; suspect PE FINDINGS: Minor degenerative changes are noted in the spine. Emphysema is present, upper lobe predominant, and there are scattered areas of pulmonary and pleural scarring seen. A small right pleural effusion is present with some adjacent compressive atelectasis. No significant left-sided pleural fluid seen. No consolidation is visible. No mediastinal adenopathy is visible. A 1.7 cm right hilar lymph node is present. Atelectatic lung at the right lower lobe enhances normally. There is no pulmonary artery defect identified on these images. No additional contributory abnormality seen. IMPRESSION: 1. Small right pleural effusion with small adjacent areas of atelectasis. 2. No evidence for pulmonary embolism. 3. Prominent right hilar lymph node which may be hyperplastic or reactive. Precise etiology is indeterminate. Interpreted by: Carisa Zuluaga MD Preliminary Report By: Carisa Zuluaga MD Electronically signed By Carisa Zuluaga MD Dictated Date: 01/17/2022 12:41:19 PM Prelim Date: 01/17/2022 12:44:11 PM Sign Date: 01/17/2022 12:44:11 PM Ordering Provider: GOLDIE Allen [facility]) DIMERon 01-17-2022 D-Dimer 243 ng/mL D-DU High 0-230 [facility] ([place]) Comment on above: Result Comment: The result of the D-Dimer test should be evaluated in the context of all the clinical and laboratory data available. In those instances where the laboratory result does not agree with the clinical evaluation, additional tests should be performed accordingly. If the D-Dimer result is used to exclude DVT or PE, the recommended cutoff value is less than 230 ng/mL. The D-Dimer result should not be used alone to rule in DVT/PE, but should be used in conjunction with a clinical pretest probability (PTP)assessment model to exclude venous thromboembolism (VTE) in outpatients suspected of deep venous thrombosis (DVT) and pulmonary embolism (PE). Performed By: #### D VANDANA ####[address] [place], [place] [address] Determination of erythrocyte mean corpuscular volume (MCV)on 01-17-2022 MCV (RBC) [Entitic vol] 93.8 fL 80-94 [facility] Work Phone: Hematocrit Auto (Bld) [Volum e fraction]on 01-17-2022 Hematocrit (Bld) [Volume fraction] 44.1 % 40-54 [facility] Work Phone: Ketones Test strip Ql (U)on 01-17-2022 Ketones Ql (U) Negative Negative [facility] Work Phone: LABORATORYOrdered By: Shonna Ortiz on 01-17-2022 M. pneumoniae IgM IA Ql (S) Negative (01/17/22 3:35 PM) Invalid Interpretation Code AH Man Viro/Sero SS Mycoplasma IgG Positive *NA* (01/17/22 3:35 PM) Invalid Interpretation Code AH Auto Viro/Sero SS LABORATORYOrdered By: Shonna Whitaker on 01-17-2022 Albumin BCP dye [Mass/Vol] 4.1 G/dL Invalid Interpretation Code 3.5 - 5.0 G/dL AO ADM SS Albumin/Globulin [Mass ratio] 1.3 {ratio} Invalid Interpretation Code 1.1 - 2.5 ratio AO ADM SS ALP [Catalytic activity/Vol] 91 U/L Invalid Interpretation Code 40 - 135 U/L AO ADM SS ALT With P-5'-P [Catalytic activity/Vol] 31 U/L Invalid Interpretation Code 16 - 63 U/L AO ADM SS Appearance (U) Clear (01/17/22 11:23 AM) Invalid Interpretation Code Clear AO Auto Urine SS AST With P-5'-P [Catalytic activity/Vol] 18 U/L Invalid Interpretation Code 10 - 40 U/L AO ADM SS Bilirubin [Mass/Vol] 0.7 mg/dL Invalid Interpretation Code 0.2 - 1.0 mg/dL AO ADM SS Bilirubin Ql (U) Negative (01/17/22 11:23 AM) Invalid Interpretation Code Negative AO Auto Urine SS Calcium [Mass/Vol] 8.9 mg/dL Invalid Interpretation Code 8.4 - 10.2 mg/dL AO ADM SS Chloride [Moles/Vol] 101 mmol/L Invalid Interpretation Code 98 - 107 mmol/L AO ADM SS CO2 [Moles/Vol] 27 mmol/L Invalid Interpretation Code 22 - 29 mmol/L AO ADM SS Color (U) Yellow (01/17/22 11:23 AM) Invalid Interpretation Code AO Auto Urine SS Creatinine [Mass/Vol] 0.92 mg/dL Invalid Interpretation Code 0.70 - 1.30 mg/dL AO ADM SS Electrolyte Balance 10.0 mEq/L Invalid Interpretation Code 4.0 - 15.0 mEq/L AO ADM SS Globulin 3.2 G/dL Invalid Interpretation Code AO ADM SS Glucose [Mass/Vol] 107 mg/dL Invalid Interpretation Code 70 - 105 mg/dL AO ADM SS Glucose Test strip (U) [Mass/Vol] Negative Invalid Interpretation Code Negativemg/dL AO Auto Urine SS Hemoglobin Auto test strip (U) [Mass/Vol] Small *ABN* (01/17/22 11:23 AM) Invalid Interpretation Code Negative AO Auto Urine SS Ketones Ql (U) 15 mg/dL Invalid Interpretation Code Negativemg/dL AO Auto Urine SS Lipase [Catalytic activity/Vol] 62 U/L Invalid Interpretation Code 73 - 393 U/L AO ADM SS Potassium [Moles/Vol] 4.3 mmol/L Invalid Interpretation Code 3.5 - 5.1 mmol/L AO ADM SS Protein [Mass/Vol] 7.3 G/dL Invalid Interpretation Code 6.4 - 8.2 G/dL AO ADM SS Sodium [Moles/Vol] 138 mmol/L Invalid Interpretation Code 136 - 145 mmol/L AO ADM SS UA Leuk Est Negative (01/17/22 11:23 AM) Invalid Interpretation Code Negative AO Auto Urine SS UA Nitrite Negative (01/17/22 11:23 AM) Invalid Interpretation Code Negative AO Auto Urine SS UA pH 5.5 (01/17/22 11:23 AM) Invalid Interpretation Code 5.0 - 8.0 AO Auto Urine SS UA Protein Negative Invalid Interpretation Code Negativemg/dL AO Auto Urine SS UA Spec Grav 1.025 (01/17/22 11:23 AM) Invalid Interpretation Code 1.015-1.025 AO Auto Urine SS UA Specimen Type Clean Catch (01/17/22 11:23 AM) Invalid Interpretation Code AO Auto Urine SS UA Urobilinogen 0.2 E.U./dL Invalid Interpretation Code 0.2-1.0E.U./d L AO Auto Urine SS Urea nitrogen [Mass/Vol] 15 mg/dL Invalid Interpretation Code 7 - 18 mg/dL AO ADM SS Urea nitrogen/Creatinine [Mass ratio] 16 ratio Invalid Interpretation Code 7 - 27 ratio AO ADM SS LABORATORYOrdered By: Monalisa Patel on 01-17-2022 Basophil, Absolute 0.1 103/mcL Invalid Interpretation Code 0.0 - 0.2 10^3/mcL AO Workflow SS Basophils/100 WBC (Bld) 0.4 % Invalid Interpretation Code 0.0 - 2.5 % AO Workflow SS Eosinophil, Absolute 0.0 103/mcL Invalid Interpretation Code 0.0 - 0.4 10^3/mcL AO Workflow SS Eosinophils/100 WBC (Bld) 0.0 % Invalid Interpretation Code 0.0 - 7.0 % AO Workflow SS Erythrocyte distribution width (RBC) [Ratio] 13.9 % Invalid Interpretation Code 11.5 - 14.5 % AO Workflow SS Fibrin D-dimer DDU (PPP) [Mass/Vol] 243 ng/mL D-DU Invalid Interpretation Code 0 - 230 ng/mL D-DU AO Coag SS Hematocrit (Bld) [Volume fraction] 43.6 % Invalid Interpretation Code 42.0 - 52.0 % AO Workflow SS Hemoglobin (Bld) [Mass/Vol] 14.9 G/dL Invalid Interpretation Code 14.0 - 18.0 G/dL AO Workflow SS Lymphocyte, Absolute 1.4 103/mcL Invalid Interpretation Code 0.8 - 3.9 10^3/mcL AO Workflow SS Lymphocytes/100 WBC (Bld) 7.7 % Invalid Interpretation Code 10.0 - 50.0 % AO Workflow SS MCH (RBC) [Entitic mass] 31.2 pg Invalid Interpretation Code 27.0 - 31.2 pg AO Workflow SS MCHC 34.1 G/dL Invalid Interpretation Code 31.8 - 35.4 G/dL AO Workflow SS MCV (RBC) [Entitic vol] 91.5 fL Invalid Interpretation Code 80.0 - 94.0 fL AO Workflow SS Monocyte distribution width Auto (Bld) [Entitic vol] 18.32 Invalid Interpretation Code 0.00 - 20.00 AO Workflow SS Comment on above: Result Comment: For ED adult patients suspected of sepsis, MDW<=20.0 does not rule out sepsis or risk of sepsis Monocyte, Absolute 1.8 103/mcL Invalid Interpretation Code 0.2 - 1.0 10^3/mcL AO Workflow SS Monocytes/100 WBC (Bld) 9.3 % Invalid Interpretation Code 1.7 - 13.0 % AO Workflow SS Neutrophil, Absolute 15.6 103/mcL Invalid Interpretation Code 2.9 - 6.2 10^3/mcL AO Workflow SS Neutrophils/100 WBC (Bld) 82.6 % Invalid Interpretation Code 37.0 - 80.0 % AO Workflow SS Platelet mean volume (Bld) [Entitic vol] 7.3 fL Invalid Interpretation Code 7.4 - 10.4 fL AO Workflow SS Platelets (Bld) [#/Vol] 299 103/mcL Invalid Interpretation Code 130 - 400 10^3/mcL AO Workflow SS RBC (Bld) [#/Vol] 4.76 106/mcL Invalid Interpretation Code 4.04 - 6.13 10^6/mcL AO Workflow SS WBC 18.8 103/mcL Invalid Interpretation Code 4.6 - 10.8 10^3/mcL AO Workflow SS LABORATORYOrdered By: SYSTEM SYSTEM on 01-17-2022 GFR 103 ml/min/1.73sqm Invalid Interpretation Code AO Chemistry S GFR Non- 85 ml/min/1.73sqm Invalid Interpretation Code AO Chemistry S LIPon 01-17-2022 Lipase Level 62 U/L Low 73-393 [facility] ([place] Comment on above: Performed By: #### G FR, CMP, LIP ####[address] [place], [place] [address] Laboratory - Chemistry and C hemistry - challengeon 01-17-2022 ALP [Catalytic activity/Vol] 98 U/L 45-117 [facility] Work Phone: ALT [Catalytic activity/Vol] 33 U/L 16-61 [facility] Work Phone: CO2 [Moles/Vol] 25.0 mmol/L 21.0-32.0 [facility] Work Phone: Globulin (S) [Mass/Vol] 3.7 g/dL 2.2-4.2 [facility] Work Phone: Urea nitrogen/Creatinine [Mass ratio] 20.1 mg/mg 10-20 [facility] Work Phone: Laboratory - Hematology and Cell countson 01-17-2022 Erythrocyte distribution width (RBC) [Entitic vol] 46.1 fL 35.1-43.9 [facility] Work Phone: [phone] Erythrocyte distribution width (RBC) [Ratio] 13.3 % 11.6-14.6 [facility] Work Phone: [phone] Immature granulocytes/100 WBC (Bld) 0.400 % 0.0-0.9 [facility] Work Phone: Comment on above: IG% - Immature Granu locytes (promyelocytes, myelocytes and metamyelocytes) > 1% indicates that a LEFT SHIFT is Present. MCH (RBC) [Entitic mass] 31.5 pg 27.0-32.0 [facility] Work Phone: Nucleated RBC/100 WBC (Bld) [Ratio] 0 % 0-5 [facility] Work Phone: [phone] MCHC Auto (RBC) [Mass/Vol]on 01-17-2022 MCHC (RBC) [Mass/Vol] 33.6 g/dL 32-36 [facility] Work Phone: Mucus LM Ql (Urine sed)on Mucus Ql (Urine sed) 0 SEEN /hpf [facility] Work Phone: Nitrite Test strip Ql (U)on 01-17-2022 Nitrite Ql (U) Negative Negative [facility] Work Phone: No Panel Informationon 01-17 Legionella Urine Ag Presumptive negative for L. pneumophila serogroup 1 antigen in urine, suggesting no recent or current infection. Legionnaire's disease cannot be ruled out since other serogroups and species may also cause disease. [facility] Work Phone: Microscopic examination of blood, culture Culture has been received in lab and is no growth to date. Routine cultures are held for 5 days. [facility] Work Phone: D-Dimer Quantitative (PE/DVT) 0.74 FEU/ug/m 0.27-0.49 [facility] Work Phone: Comment on above: D-Dimer ELEVATED (>0 .49): Additional studies and clinicalassessments are indicated to conclude diagnosis of:Deep Vein Thrombosis (DVT) or Pulmonary Embolism (PE)CRITICAL VALUE VERIFIED. CALLED TO OSMAR BARRIENTOS RN (ED)01/17/22 0327 Genaro Preston.RESULTS READ BACK BY SAME . Estimated Creatinine Clearance Calc 88.67 ml/min [facility] Work Phone: Estimated GFR (MDRD) Amer 113 mL/min >60 [facility] Work Phone: Comment on above: GFR Calc Estimated GFR (MDRD) Non-Af Amer 93 mL/min >60 [facility] Work Phone: Comment on above: Non- GFR Calc Troponin I High Sensitivity 29 pg/mL 3.0-78.0 [facility] Work Phone: Comment on above: Please Note: New Yudy t Units and Gender Specific Reference Ranges. For more information see Policy Stat Procedure [place] High Sensitivity Troponin (TNIH) and attachments. Platelets bldon 01-17-2022 Platelets (Bld) [#/Vol] 319 10*3/uL 150-450 [facility] Work Phone: Protein Test strip Ql (U)on 01-17-2022 Protein Ql (U) Negative Negative [facility] Work Phone: Serum or plasma albumin henna urement (mass/volume)on 01-17-2022 Albumin [Mass/Vol] 4.3 g/dL 3.2-5.0 [facility] Work Phone: [phone] Serum or plasma albumin/glob ulin mass ratioon 01-17-2022 Albumin/Globulin [Mass ratio] 1.2 {ratio} 0.9-2.4 [facility] Work Phone: [phone] Serum or plasma calcium henna urement (mass/volume)on 01-17-2022 Calcium [Mass/Vol] 9.1 mg/dL 8.5-10.1 [facility] Work Phone: Serum or plasma creatinine m easurement (mass/volume)on 01-17-2022 Creatinine [Mass/Vol] 0.90 mg/dL 0.70-1.30 [facility] Work Phone: Comment on above: The validity of the calculated GFR & GFRAA in patients over 70 years has not been determined. Clinical correlation is essential. Serum or plasma urea nitroge n measurement (mass/volume)on 01-17-2022 Urea nitrogen [Mass/Vol] 18 mg/dL 7-18 [facility] Work Phone: Squamous epithelial cells de tection in urine sediment by light microscopyon 01-17-2022 Epithelial cells.squamous LM Ql (Urine sed) 0 SEEN /hpf 0-5 [facility] Work Phone: Thin prep Papanicolaou smear with manual screeningon 01-17-2022 Thin prep Papanicolaou smear with manual screening 21 U/L 15-37 [facility] Work Phone: Thin prep Papanicolaou smear with manual screening 6 5-15 [facility] Work Phone: UAon 01-17-2022 Color (U) Yellow Normal [facility] ([place]) Comment on above: Performed By: #### U A #### [place] [address] [address] Glucose (U) [Mass/Vol] Negative Normal Negative [facility] ([place]) Comment on above: Performed By: #### U A #### [address] [address] Ketones Ql (U) 15 mg/dL Abnormal Negative [facility] ([place]) Comment on above: Performed By: #### U A #### [place] [address] [address] UA Appear Clear Normal Clear [facility] ([place]) Comment on above: Performed By: #### U A #### [address] [address] UA Blood Small Abnormal Negative [facility] ([place] Comment on above: Performed By: #### U A #### [address] [address] UA Leuk Est Negative Normal Negative [facility] ([place] Comment on above: Performed By: #### U A #### [address] [address] UA Nitrite Negative Normal Negative [facility] ([place] Comment on above: Performed By: #### U A #### [address] [address] UA pH 5.5 Normal 5.0 - 8.0 [facility] ([place] Comment on above: Performed By: #### U A #### [address] [address] UA Protein Negative Normal Negative [facility] ([place] Comment on above: Performed By: #### U A #### [address] [address] UA Spec Grav 1.025 Normal 1.015-1.025 [facility] ([place] Comment on above: Performed By: #### U A #### [address] [address] UA Specimen Type Clean Catch Normal [facility] ([place] Comment on above: Performed By: #### U A #### [address] [address] UA Urobilinogen 0.2 E.U./dL Normal 0.2-1.0 [facility] ([place] Comment on above: Performed By: #### U A #### [address] [address] Urobilinogen (U) [Mass/Vol] Negative Normal Negative [facility] ([place] Comment on above: Performed By: #### U A #### [address] [address] US ABDOMEN LIMITEDon 08-23-2 022 US ABDOMEN LIMITED ORIGINAL HISTORY: Right upper quadrant pain COMPARISON: No TECHNIQUE: The following organs are evaluated: liver, pancreas, gallbladder, common bile duct and right kidney. FINDINGS: The hepatic parenchyma appears mildly decreased in echogenicity relative to the godoy of the biliary system. The right kidney measures 11.8 cm in length. There is no hydronephrosis. The cortex is normal to mildly increased in echogenicity. The remaining abdominal organs are unremarkable in appearance. There is no sonographic Yoder sign. The common bile duct is within normal limits at 4 mm in diameter. The aorta and inferior vena cava are suboptimally visualized but otherwise unremarkable. There is a small right pleural effusion. IMPRESSION: Decreased hepatic echogenicity, at least suggestive of hepatitis, although other etiologies such is malignant infiltration are not excluded. Questionable mild increase in cortical echogenicity. This appearance may be due to decreased echogenicity of the adjacent liver, but medical renal disease is not entirely excluded. Small right effusion. Interpreted by: Simón Navarro MD Preliminary Report By: Simón Navarro MD Electronically signed By Simón Navarro MD Dictated Date: 01/17/2022 12:06:24 PM Prelim Date: 01/17/2022 12:12:10 PM Sign Date: 01/17/2022 12:12:10 PM Ordering Provider: GOLDIE Allen [facility] ([place]) Urine blood detectionon 12-27 RBC Ql (U) 10 /ul Negative [facility] Work Phone: [phone] RBC Ql (U) 0 SEEN /hpf 0-5 [facility] Work Phone: [phone] Urine clarityon 01-17-2022 Clarity (U) Clear Clear [facility] Work Phone: Urine color determinationon 01-17-2022 Color (U) Yellow Yellow [facility] Work Phone: Urine glucose detectionon Glucose Ql (U) Normal mg/dl Normal [facility] Work Phone: [phone] Urine leukocyte esterase det ection by dipstickon 01-17-2022 Leukocyte esterase Test strip Ql (U) Negative Negative [facility] Work Phone: Urine pHon 01-17-2022 pH (U) 6.0 [pH] 5.0 - 8.0 [facility] Work Phone: Urine sediment bacteria coun t by microscopy (number/high power field)on 01-17-2022 Bacteria LM.HPF (Urine sed) [#/Area] 0 /[HPF] None Seen [facility] Work Phone: Urine specific gravity measu rementon 01-17-2022 Specific gravity (U) [Rel density] 1.025 1.002-1.030 [facility] Work Phone: Urobilinogen Auto test strip Ql (U)on 01-17-2022 Urobilinogen Ql (U) Normal mg/dl Normal [facility] Work Phone: Vital Signs Date Time Vital Sign Value Performing Clinician Facility 10-10-2024 06:24-0400 Body temperature 98.6 [degF] [employer] VENTILATOR SPECIALIST-C Work Phone: [facility] 10-10-2024 06:24-0400 Diastolic blood pressure 80 mm[Hg] ROSA ASHU VENTILATOR SPECIALIST-C Work Phone: [facility] 10-10-2024 06:24-0400 Heart rate 67 /min ROSA ASHU VENTILATOR SPECIALIST-C Work Phone: [facility] 10-10-2024 06:24-0400 SaO2% (BldA) [Mass fraction] 98 % ROSA ASHU VENTILATOR SPECIALIST-C Work Phone: [facility] 10-10-2024 06:24-0400 Systolic blood pressure 126 mm[Hg] ROSA ASHU VENTILATOR SPECIALIST-C Work Phone: [facility] 06-23-2024 09:49-0500 Body height 172.7 cm Carisa Burch MD Work Phone: [facility] 06-23-2024 09:49-0500 Body mass index (BMI) [Ratio] 31.78 kg/m2 Carisa Burch MD Work Phone: [facility] 06-23-2024 09:49-0500 Body weight 94.8 kg Carisa Burch MD Work Phone: [facility] 06-23-2024 09:49-0500 Respiratory rate 20 /min Carisa Burch MD Work Phone: [facility] 04-10-2024 09:38-0500 Body temperature 98.71 [degF] Betty Halderman-Payan PT Work Phone: [facility] 04-10-2024 09:38-0500 Diastolic blood pressure 64 mm[Hg] Betty Borisderman-Payan PT Work Phone: [facility] 04-10-2024 09:38-0500 Heart rate 59 /min Betty Halderman-Payan PT Work Phone: [facility] 04-10-2024 09:38-0500 Respiratory rate 18 /min Betty Halderman-Payan PT Work Phone: [facility] 04-10-2024 09:38-0500 SaO2% (BldA) [Mass fraction] 97 % Betty Halderman-Payan PT Work Phone: [facility] 04-10-2024 09:38-0500 Systolic blood pressure 120 mm[Hg] Betty Halderman-Payan PT Work Phone: [facility] 04-07-2024 08:36-0500 Body temperature 98.8 [degF] Bree Lupe PORTRAIT STUDIO PHOTOGRAPHER Work Phone: [facility] 04-07-2024 08:36-0500 Diastolic blood pressure 78 mm[Hg] Bree Lupe PORTRAIT STUDIO PHOTOGRAPHER Work Phone: [facility] 04-07-2024 08:36-0500 Heart rate 57 /min Bree Lupe PORTRAIT STUDIO PHOTOGRAPHER Work Phone: [facility] 04-07-2024 08:36-0500 Respiratory rate 18 /min Bree Lupe PORTRAIT STUDIO PHOTOGRAPHER Work Phone: [facility] 04-07-2024 08:36-0500 SaO2% (BldA) [Mass fraction] 97 % Bree Lupe PORTRAIT STUDIO PHOTOGRAPHER Work Phone: [facility] 04-07-2024 08:36-0500 Systolic blood pressure 128 mm[Hg] Bree Lupe PORTRAIT STUDIO PHOTOGRAPHER Work Phone: [facility] 04-04-2024 08:02-0500 Body temperature 98.91 [degF] Bree Lupe PORTRAIT STUDIO PHOTOGRAPHER Work Phone: [facility] 04-04-2024 08:02-0500 Diastolic blood pressure 70 mm[Hg] Bree Lupe PORTRAIT STUDIO PHOTOGRAPHER Work Phone: [facility] 04-04-2024 08:02-0500 Heart rate 57 /min Bree Lupe PORTRAIT STUDIO PHOTOGRAPHER Work Phone: [facility] 04-04-2024 08:02-0500 Respiratory rate 18 /min Bree Lupe PORTRAIT STUDIO PHOTOGRAPHER Work Phone: [facility] 04-04-2024 08:02-0500 SaO2% (BldA) [Mass fraction] 97 % Bree Lupe PORTRAIT STUDIO PHOTOGRAPHER Work Phone: [facility] 04-04-2024 08:02-0500 Systolic blood pressure 128 mm[Hg] Bree Lupe PORTRAIT STUDIO PHOTOGRAPHER Work Phone: [facility] 04-02-2024 09:33-0500 Body temperature 98.4 [degF] Bree Lupe PORTRAIT STUDIO PHOTOGRAPHER Work Phone: [facility] 04-02-2024 09:33-0500 Diastolic blood pressure 78 mm[Hg] Bree Lupe PORTRAIT STUDIO PHOTOGRAPHER Work Phone: [facility] 04-02-2024 09:33-0500 Heart rate 64 /min Bree Lupe PORTRAIT STUDIO PHOTOGRAPHER Work Phone: [facility] 04-02-2024 09:33-0500 Respiratory rate 18 /min Bree Lupe PORTRAIT STUDIO PHOTOGRAPHER Work Phone: [facility] 04-02-2024 09:33-0500 SaO2% (BldA) [Mass fraction] 95 % Bree Lupe PORTRAIT STUDIO PHOTOGRAPHER Work Phone: [facility] 04-02-2024 09:33-0500 Systolic blood pressure 120 mm[Hg] Bree Lupe PORTRAIT STUDIO PHOTOGRAPHER Work Phone: [facility] 03-31-2024 09:40-0500 Body height 172.7 cm Carisa Burch MD Work Phone: [facility] 03-31-2024 09:40-0500 Body mass index (BMI) [Ratio] 31.78 kg/m2 Carisa Burch MD Work Phone: [facility] 03-31-2024 09:40-0500 Body weight 94.8 kg Carisa Burch MD Work Phone: [facility] 03-31-2024 09:40-0500 Respiratory rate 16 /min Carisa Burch MD Work Phone: [facility] 03-27-2024 09:04-0400 Body temperature 98.4 [degF] Bree Lupe PORTRAIT STUDIO PHOTOGRAPHER Work Phone: [facility] 03-27-2024 09:04-0400 Diastolic blood pressure 84 mm[Hg] Bree Lupe PORTRAIT STUDIO PHOTOGRAPHER Work Phone: [facility] 03-27-2024 09:04-0400 Heart rate 58 /min Bree Lupe PORTRAIT STUDIO PHOTOGRAPHER Work Phone: [facility] 03-27-2024 09:04-0400 Respiratory rate 18 /min Bree Lupe PORTRAIT STUDIO PHOTOGRAPHER Work Phone: [facility] 03-27-2024 09:04-0400 SaO2% (BldA) [Mass fraction] 96 % Bree Lupe PORTRAIT STUDIO PHOTOGRAPHER Work Phone: [facility] 03-27-2024 09:04-0400 Systolic blood pressure 138 mm[Hg] Bree Lupe PORTRAIT STUDIO PHOTOGRAPHER Work Phone: [facility] 03-24-2024 16:53-0400 Body temperature 99.3 [degF] Julieta Bell RN Work Phone: [facility] 03-24-2024 16:53-0400 Diastolic blood pressure 76 mm[Hg] Julieta Bell RN Work Phone: [facility] 03-24-2024 16:53-0400 Heart rate 66 /min Julieta Bell RN Work Phone: [facility] 03-24-2024 16:53-0400 Respiratory rate 16 /min Julieta Bell RN Work Phone: [facility] 03-24-2024 16:53-0400 SaO2% (BldA) [Mass fraction] 98 % Julieta Bell RN Work Phone: [facility] 03-24-2024 16:53-0400 Systolic blood pressure 140 mm[Hg] Julieta Bell RN Work Phone: [facility] 03-24-2024 09:57-0400 Body temperature 98.91 [degF] Betty Beavers-Ora PT Work Phone: [facility] 03-24-2024 09:57-0400 Diastolic blood pressure 80 mm[Hg] Betty Beavers-Ora PT Work Phone: [facility] 03-24-2024 09:57-0400 Heart rate 60 /min Betty Beavers-Payan PT Work Phone: [facility] 03-24-2024 09:57-0400 Respiratory rate 18 /min Betty Beavers-Ora PT Work Phone: [facility] 03-24-2024 09:57-0400 SaO2% (BldA) [Mass fraction] 96 % Betty Beavers-Ora PT Work Phone: [facility] 03-24-2024 09:57-0400 Systolic blood pressure 140 mm[Hg] Betty Zhangman-Payan PT Work Phone: [facility] 03-21-2024 12:21-0400 Body temperature 97.9 [degF] Shruti Jimenezer OT/L Work Phone: [facility] 03-21-2024 12:21-0400 Diastolic blood pressure 66 mm[Hg] Shruti Horschler OT/L Work Phone: [facility] 03-21-2024 12:21-0400 Heart rate 66 /min Shruti Horschler OT/L Work Phone: [facility] 03-21-2024 12:21-0400 Respiratory rate 18 /min Shruti Horschler OT/L Work Phone: [facility] 03-21-2024 12:21-0400 SaO2% (BldA) [Mass fraction] 96 % Shruti Horschler OT/L Work Phone: [facility] 03-21-2024 12:21-0400 Systolic blood pressure 130 mm[Hg] Shruti Horschler OT/L Work Phone: [facility] 03-20-2024 16:00-0400 Heart rate 78 /min Ning Rufener PT Work Phone: [facility] 03-20-2024 16:00-0400 SaO2% (BldA) [Mass fraction] 97 % Ning Rufener PT Work Phone: [facility] 03-20-2024 15:35-0400 Body temperature 98.4 [degF] Ning Rufener PT Work Phone: [facility] 03-20-2024 15:35-0400 Diastolic blood pressure 72 mm[Hg] Ning Rufener PT Work Phone: [facility] 03-20-2024 15:35-0400 Respiratory rate 16 /min Ning Rufener PT Work Phone: [facility] 03-20-2024 15:35-0400 Systolic blood pressure 128 mm[Hg] Ning Rufener PT Work Phone: [facility] 03-26-2023 06:31-0400 Body height 172.72 cm VENTILATOR SPECIALIST-C Yamilka Ayala VENTILATOR SPECIALIST Work Phone: [facility] 03-26-2023 06:31-0400 Body mass index (BMI) [Ratio] 29.7 kg/m2 VENTILATOR SPECIALIST-C Yamilka Ayala VENTILATOR SPECIALIST Work Phone: [facility] 03-26-2023 06:31-0400 Body temperature 97.9 [degF] VENTILATOR SPECIALIST-C Yamilka Seffens VENTILATOR SPECIALIST Work Phone: [facility] 03-26-2023 06:31-0400 Body weight 88.9 kg VENTILATOR SPECIALIST-C Yamilka Seffens VENTILATOR SPECIALIST Work Phone: [facility] 03-26-2023 06:31-0400 Diastolic blood pressure 78 mm[Hg] VENTILATOR SPECIALIST-C Yamilka Seffens VENTILATOR SPECIALIST Work Phone: [facility] 03-26-2023 06:31-0400 Heart rate 61 /min VENTILATOR SPECIALIST-C Yamilka Seffens VENTILATOR SPECIALIST Work Phone: [facility] 03-26-2023 06:31-0400 Respiratory rate 17 /min VENTILATOR SPECIALIST-C Yamilka Seffens VENTILATOR SPECIALIST Work Phone: [facility] 03-26-2023 06:31-0400 SaO2% (BldA) [Mass fraction] 94 % VENTILATOR SPECIALIST-C Yamilka Seffens VENTILATOR SPECIALIST Work Phone: [facility] 03-26-2023 06:31-0400 Systolic blood pressure 150 mm[Hg] VENTILATOR SPECIALIST-C Yamilka Seffens VENTILATOR SPECIALIST Work Phone: [facility] 02-04-2023 08:53-0400 Body height 172.72 cm VENTILATOR SPECIALIST-C Yamilka Seffens VENTILATOR SPECIALIST Work Phone: [facility] 02-04-2023 08:53-0400 Body mass index (BMI) [Ratio] 29.6 kg/m2 VENTILATOR SPECIALIST-C Yamilka Seffens VENTILATOR SPECIALIST Work Phone: [facility] 02-04-2023 08:53-0400 Body weight 88.45 kg VENTILATOR SPECIALIST-C Yamilka Seffens VENTILATOR SPECIALIST Work Phone: [facility] 02-04-2023 08:53-0400 Diastolic blood pressure 93 mm[Hg] VENTILATOR SPECIALIST-C Yamilka Seffens VENTILATOR SPECIALIST Work Phone: [facility] 02-04-2023 08:53-0400 Heart rate 66 /min VENTILATOR SPECIALIST-C Yamilka Seffens VENTILATOR SPECIALIST Work Phone: [facility] 02-04-2023 08:53-0400 Respiratory rate 16 /min VENTILATOR SPECIALIST-C Yamilka Seffens VENTILATOR SPECIALIST Work Phone: [facility] 02-04-2023 08:53-0400 SaO2% (BldA) [Mass fraction] 96 % VENTILATOR SPECIALIST-C Yamilka Seffens VENTILATOR SPECIALIST Work Phone: [facility] 02-04-2023 08:53-0400 Systolic blood pressure 145 mm[Hg] VENTILATOR SPECIALIST-C Yamilka Seffens VENTILATOR SPECIALIST Work Phone: [facility] 10-30-2022 09:17-0400 Body mass index (BMI) [Ratio] 29.4 kg/m2 VENTILATOR SPECIALIST-C Yamilka Seffens VENTILATOR SPECIALIST Work Phone: [facility] 10-30-2022 09:17-0400 Body weight 87.71 kg VENTILATOR SPECIALIST-C Yamilka Seffens VENTILATOR SPECIALIST Work Phone: [facility] 10-30-2022 09:17-0400 Diastolic blood pressure 79 mm[Hg] VENTILATOR SPECIALIST-C Yamilka Seffens VENTILATOR SPECIALIST Work Phone: [facility] 10-30-2022 09:17-0400 Heart rate 54 /min VENTILATOR SPECIALIST-C Yamilka Seffens VENTILATOR SPECIALIST Work Phone: [facility] 10-30-2022 09:17-0400 Respiratory rate 20 /min VENTILATOR SPECIALIST-C Yamilka Seffens VENTILATOR SPECIALIST Work Phone: [facility] 10-30-2022 09:17-0400 SaO2% (BldA) [Mass fraction] 97 % VENTILATOR SPECIALIST-C Yamilka Seffens VENTILATOR SPECIALIST Work Phone: [facility] 10-30-2022 09:17-0400 Systolic blood pressure 123 mm[Hg] VENTILATOR SPECIALIST-C Yamilka Seffens VENTILATOR SPECIALIST Work Phone: [facility] 10-16-2022 06:26-0400 Body temperature 98.6 [degF] VENTILATOR SPECIALIST-C Yamilka Seffens VENTILATOR SPECIALIST Work Phone: [facility] 10-16-2022 06:26-0400 Diastolic blood pressure 82 mm[Hg] VENTILATOR SPECIALIST-C Yamilka Seffens VENTILATOR SPECIALIST Work Phone: [facility] 10-16-2022 06:26-0400 Heart rate 65 /min VENTILATOR SPECIALIST-C Yamilka Seffens VENTILATOR SPECIALIST Work Phone: [facility] 10-16-2022 06:26-0400 Respiratory rate 16 /min VENTILATOR SPECIALIST-C Yamilka Seffens VENTILATOR SPECIALIST Work Phone: [facility] 10-16-2022 06:26-0400 SaO2% (BldA) [Mass fraction] 98 % VENTILATOR SPECIALIST-C Yamilka Seffens VENTILATOR SPECIALIST Work Phone: [facility] 10-16-2022 06:26-0400 Systolic blood pressure 136 mm[Hg] VENTILATOR SPECIALIST-C Yamilka Seffens VENTILATOR SPECIALIST Work Phone: [facility] 01-18-2022 14:13-0400 Heart rate 72 /min ALYCIASHANNON YANGN GLOBAL SALES MANAGER-STOCK CONTROL CLERK [facility] 01-18-2022 14:13-0400 Respiratory rate 20 /min ALYCIA PARKER GLOBAL SALES MANAGER-STOCK CONTROL CLERK [facility] 01-18-2022 12:29-0400 Body temperature 98.24 [degF] ALYCIA TREYN GLOBAL SALES MANAGER-STOCK CONTROL CLERK [facility] 01-18-2022 12:29-0400 Diastolic blood pressure 61 mm[Hg] ALYCIA KEITH GLOBAL SALES MANAGER-STOCK CONTROL CLERK [facility] 01-18-2022 12:29-0400 Heart rate 85 /min ALYCIA KEITH GLOBAL SALES MANAGER-STOCK CONTROL CLERK [facility] 01-18-2022 12:29-0400 Mean blood pressure 76 mm[Hg] ALYCIA YANGMansi GLOBAL SALES MANAGER-STOCK CONTROL CLERK [facility] 01-18-2022 12:29-0400 Reason For Taking VItal Signs ALYCIASHANNON ENAMORADOLIV GLOBAL SALES MANAGER-STOCK CONTROL CLERK [facility] 01-18-2022 12:29-0400 Respiratory rate 20 /min ALYCIA YANGN GLOBAL SALES MANAGER-STOCK CONTROL CLERK [facility] 01-18-2022 12:29-0400 Systolic blood pressure 107 mm[Hg] ALYCIASHANNON ENAMORADOLIV GLOBAL SALES MANAGER-STOCK CONTROL CLERK [facility] 01-18-2022 09:59-0400 Heart rate 75 /min ALYCIA ENAMORADOKAVEHN GLOBAL SALES MANAGER-STOCK CONTROL CLERK [facility] 01-18-2022 09:59-0400 Respiratory rate 20 /min ALYCIA ENAMORADONEN GLOBAL SALES MANAGER-STOCK CONTROL CLERK [facility] 01-18-2022 08:12-0400 Body temperature 98.6 [degF] ALYCIA YANGMansi GLOBAL SALES MANAGER-STOCK CONTROL CLERK [facility] 01-18-2022 08:12-0400 Diastolic blood pressure 65 mm[Hg] ALYCIA YANGN GLOBAL SALES MANAGER-STOCK CONTROL CLERK [facility] 01-18-2022 08:12-0400 Heart rate 75 /min ALYCIASHANNON ENAMORADONEN GLOBAL SALES MANAGER-STOCK CONTROL CLERK [facility] 01-18-2022 08:12-0400 Mean blood pressure 81 mm[Hg] ALYCIASHANNON ENAMORADOLIV GLOBAL SALES MANAGER-STOCK CONTROL CLERK [facility] 01-18-2022 08:12-0400 Reason For Taking VItal Signs ALYCIA PARKER GLOBAL SALES MANAGER-STOCK CONTROL CLERK [facility] 01-18-2022 08:12-0400 Systolic blood pressure 114 mm[Hg] ALYCIA PARKER GLOBAL SALES MANAGER-STOCK CONTROL CLERK [facility] 01-18-2022 06:09-0400 Heart rate 74 /min ALYCIA PARKER GLOBAL SALES MANAGER-STOCK CONTROL CLERK [facility] 01-18-2022 04:17-0400 Body temperature 98.96 [degF] ALYCIA PARKER GLOBAL SALES MANAGER-STOCK CONTROL CLERK [facility] 01-18-2022 04:17-0400 Diastolic blood pressure 66 mm[Hg] ALYCIA PARKER GLOBAL SALES MANAGER-STOCK CONTROL CLERK [facility] 01-18-2022 04:17-0400 Systolic blood pressure 108 mm[Hg] ALYCIA PARKER GLOBAL SALES MANAGER-STOCK CONTROL CLERK [facility] 01-17-2022 16:03-0400 Heart rate 82 /min ALYCIA PARKER GLOBAL SALES MANAGER-STOCK CONTROL CLERK [facility] 01-17-2022 16:03-0400 Mean blood pressure 88 mm[Hg] ALYCIA PARKER GLOBAL SALES MANAGER-STOCK CONTROL CLERK [facility] 01-17-2022 16:03-0400 Reason For Taking VItal Signs ALYCIA YANGMansi GLOBAL SALES MANAGER-STOCK CONTROL CLERK [facility] 01-17-2022 15:32-0400 Body height 172.7 cm ALYCIA YANGMansi GLOBAL SALES MANAGER-STOCK CONTROL CLERK [facility] 01-17-2022 15:32-0400 Body weight 77.3 kg ALYCIA YANGMansi GLOBAL SALES MANAGER-STOCK CONTROL CLERK [facility] 01-17-2022 15:32-0400 Body weight 25.92 kg/m2 ALYCIA PARKER GLOBAL SALES MANAGER-STOCK CONTROL CLERK [facility] 01-17-2022 05:03-0400 Diastolic blood pressure 77 mm[Hg] [facility] Work Phone: 01-17-2022 05:03-0400 Heart rate 88 /min [facility] Work Phone: 01-17-2022 05:03-0400 Respiratory rate 20 /min [facility] Work Phone: 01-17-2022 05:03-0400 SaO2% (BldA) [Mass fraction] 95 % [facility] Work Phone: 01-17-2022 05:03-0400 Systolic blood pressure 130 mm[Hg] [facility] Work Phone: 01-17-2022 02:26-0400 Body height 172.72 cm [facility] Work Phone: 01-17-2022 02:26-0400 Body mass index (BMI) [Ratio] 26.5 kg/m2 [facility] Work Phone: 01-17-2022 02:26-0400 Body temperature 98.1 [degF] [facility] Work Phone: 01-17-2022 02:26-0400 Body weight 79.1 kg [facility] Work Phone: Encounters Encounter Date Encounter Type Care Provider Facility Start: 10-10-2024 End: 10-10-2024 Patient encounter procedure Moises Rg [facility] Work Phone: Start: 10-10-2024 End: 10-10-2024 ambulatory ROSA RODRÍGUEZ Work Phone: [facility] Work Phone: Start: 08-18-2024 End: 08-18-2024 Admission to same day surgery [facility] Work Phone: [facility] Comment on above: Status post surgery (Primary Dx) Start: 08-18-2024 End: 08-18-2024 ambulatory Jenny Schmidt PORTRAIT STUDIO PHOTOGRAPHER [facility] Start: 08-11-2024 End: 08-11-2024 Admission to same day surgery center Skyler Foreman PT Work Phone: [facility] Comment on above: Status post surgery (Primary Dx) Start: 08-11-2024 End: 08-11-2024 ambulatory Carisa Burch MD Work Phone: [facility] Comment on above: Return to work Start: 08-04-2024 End: 08-04-2024 Admission to same day surgery center Skyler Foreman PT Work Phone: [facility] Comment on above: Status post surgery (Primary Dx) Start: 08-04-2024 End: 08-04-2024 ambulatory Skyelr Foreman PT Work Phone: [facility] Start: 07-31-2024 End: 07-31-2024 Admission to same day surgery center Skyler Foreman PT Work Phone: [facility] Comment on above: Status post surgery (Primary Dx) Start: 07-31-2024 End: 07-31-2024 ambulatory Skyler Foreman PT Work Phone: [facility] Start: 07-28-2024 End: 07-28-2024 Admission to same day surgery center Jennypaula Schmidt PORTRAIT STUDIO PHOTOGRAPHER Work Phone: [facility] Comment on above: Status post surgery (Primary Dx) Start: 07-28-2024 End: 07-28-2024 ambulatory Jenny Kaplanjuanito PORTRAIT STUDIO PHOTOGRAPHER Work Phone: [facility] Start: 07-24-2024 End: 07-24-2024 Admission to same day surgery center Skyler Foreman PT Work Phone: [facility] Comment on above: Status post surgery (Primary Dx) Start: 07-24-2024 End: 07-24-2024 ambulatory Skyler Foreman PT Work Phone: [facility] Start: 07-21-2024 End: 07-21-2024 Admission to same day surgery center Skyler Kellen PT Work Phone: [facility] Comment on above: Status post surgery (Primary Dx) Start: 07-21-2024 End: 07-21-2024 ambulatory Skyler Foreman PT Work Phone: [facility] Start: 07-17-2024 End: 07-17-2024 Admission to same day surgery center Skylerceleste Foreman PT [facility] Phone: [facility] Comment on above: Status post surgery (Primary Dx) Start: 07-17-2024 End: 07-17-2024 ambulatory Skyler Foreman PT Work Phone: [facility] Start: 07-15-2024 End: 07-15-2024 Admission to same day surgery center Jenny Schmidt PORTRAIT STUDIO PHOTOGRAPHER Work Phone: [facility] Comment on above: Status post surgery (Primary Dx) Start: 07-15-2024 End: 07-15-2024 ambulatory Jenny Schmidt PORTRAIT STUDIO PHOTOGRAPHER Work Phone: [facility] Start: 07-08-2024 End: 07-08-2024 Admission to same day surgery center Skylerceleste Foreman PT Work Phone: [facility] Comment on above: Status post surgery (Primary Dx) Start: 07-08-2024 End: 07-08-2024 ambulatory Skyler Foreman PT Work Phone: [facility] Start: 06-27-2024 End: 06-27-2024 Admission to same day surgery center Skyler Foreman PT Work Phone: [facility] Comment on above: Status post surgery (Primary Dx) Start: 06-27-2024 End: 06-27-2024 ambulatory Skyler Foreman PT Work Phone: [facility] Start: 06-24-2024 End: 06-24-2024 Admission to same day surgery center Skyler Foreman PT Work Phone: [facility] Comment on above: Status post surgery (Primary Dx) Start: 06-24-2024 End: 06-24-2024 ambulatory Skyler Foreman PT Work Phone: [facility] Start: 06-23-2024 End: 06-23-2024 Patient encounter procedure Carisa Burch MD Work Phone: [facility] Comment on above: Closed complex fract ure of left tibia with routine healing, subsequent encounter (Primary Dx) Start: 06-23-2024 End: 06-23-2024 ambulatory ROSA WAKEFIELD Facility:[facility] Start: 06-20-2024 End: 06-20-2024 Admission to same day surgery center Skyler Foreman PT Work Phone: [facility] Comment on above: Status post surgery (Primary Dx) Start: 06-20-2024 End: 06-20-2024 ambulatory Skyler Foreman PT Work Phone: [facility] Start: 06-17-2024 End: 06-17-2024 Admission to same day surgery center Skyler Foreman PT Work Phone: [facility] Comment on above: Status post surgery (Primary Dx) Start: 06-17-2024 End: 06-17-2024 ambulatory Skyler Foreman PT Work Phone: [facility] Start: 06-13-2024 End: 06-13-2024 Admission to same day surgery center Skyler Foreman PT Work Phone: [facility] Comment on above: Status post surgery (Primary Dx) Start: 06-13-2024 End: 06-13-2024 ambulatory Skyler Foreman PT Work Phone: [facility] Start: 06-10-2024 End: 06-10-2024 Admission to same day surgery center Skyler Foreman PT Work Phone: [facility] Comment on above: Status post surgery (Primary Dx) Start: 06-10-2024 End: 06-10-2024 ambulatory Skyler Foreman PT Work Phone: [facility] Start: 06-09-2024 Encounter for genera l adult medical examination without abnormal findings ROSA WAKEFIELD [facility] Start: 06-06-2024 End: 06-06-2024 Admission to same day surgery center Skyler Foreman PT Work Phone: [facility] Comment on above: Status post surgery (Primary Dx) Start: 06-06-2024 End: 06-06-2024 ambulatory Skyler Foreman PT Work Phone: [facility] Start: 06-04-2024 End: 06-04-2024 Admission to same day surgery center [facility] PORTRAIT STUDIO PHOTOGRAPHER Work Phone: [facility] Comment on above: Status post surgery (Primary Dx) Start: 06-04-2024 End: 06-04-2024 ambulatory Jenny Mikijuaniot PORTRAIT STUDIO PHOTOGRAPHER Work Phone: [facility] Start: 06-03-2024 End: 06-03-2024 ambulatory Yamilka Ayala NP [place] Start: 06-02-2024 End: 06-03-2024 Telephone encounter Skyler Foreman PT Work Phone: [facility] Comment on above: Insurance Authorizat ion (Continued Physical Therapy) Start: 05-30-2024 End: 05-30-2024 Admission to same day surgery center [facility] PORTRAIT STUDIO PHOTOGRAPHER Work Phone: [facility] Comment on above: Status post surgery (Primary Dx) Start: 05-30-2024 End: 05-30-2024 ambulatory ROSA WAKEFIELD Facility:[facility] Start: 05-27-2024 End: 05-27-2024 Admission to same day surgery center Skyler Foreman PT Work Phone: [facility] Comment on above: Status post surgery (Primary Dx) Start: 05-27-2024 End: 05-27-2024 ambulatory ROSA WAKEFIELD Facility:[facility] Start: 05-16-2024 End: 05-16-2024 Admission to same day surgery center Skyler Foreman PT Work Phone: [facility] Comment on above: Status post surgery (Primary Dx) Start: 05-16-2024 End: 05-16-2024 ambulatory ROSA WAKEFIELD Facility:[facility] Start: 05-12-2024 End: 05-12-2024 Admission to same day surgery center Wing Henderson PT [facility] Comment on above: Status post surgery (Primary Dx) Start: 05-12-2024 End: 05-12-2024 ambulatory ROSA WAKEFIELD Facility:[facility] Start: 05-08-2024 End: 05-08-2024 Admission to same day surgery center Jenny Schmidt PORTRAIT STUDIO PHOTOGRAPHER Work Phone: [facility] Comment on above: Status post surgery (Primary Dx) Start: 05-08-2024 End: 05-08-2024 [facility] PORTRAIT STUDIO PHOTOGRAPHER Work Phone: [facility] Start: 05-08-2024 End: 05-08-2024 ambulatory ROSA WAKEFIELD Facility:[facility] Start: 05-05-2024 End: 05-05-2024 Admission to same day surgery center Skyler Foreman PT Work Phone: [facility] Comment on above: Status post surgery (Primary Dx) Start: 05-05-2024 End: 05-05-2024 ambulatory Skyler Foreman PT Work Phone: [facility] Start: 04-30-2024 End: 04-30-2024 Admission to same day surgery center Wing Henderson PT [facility] Comment on above: Status post surgery (Primary Dx) Start: 04-30-2024 End: 04-30-2024 ambulatory Wing Henderson PT [facility] Start: 04-28-2024 End: 04-28-2024 Admission to same day surgery center Wing Henderson PT [facility] Comment on above: Status post surgery (Primary Dx) Start: 04-28-2024 End: 04-28-2024 ambulatory Wing Henderson PT [facility] Start: 04-25-2024 End: 04-25-2024 Admission to same day surgery center Wing Henderson PT [facility] Comment on above: Status post surgery (Primary Dx) Start: 04-25-2024 End: 04-25-2024 ambulatory Wing Henderson PT [facility] Start: 04-22-2024 End: 04-22-2024 Admission to same day surgery center Wing Henderson PT [facility] Comment on above: Status post surgery (Primary Dx) Start: 04-22-2024 End: 04-22-2024 ambulatory Wing Henderson PT [facility] Start: 04-17-2024 End: 04-17-2024 Admission to same day surgery center Skyler Foreman PT Work Phone: [facility] Comment on above: Status post surgery (Primary Dx) Start: 04-17-2024 End: 04-17-2024 ambulatory Skyler Foreman PT Work Phone: [facility] Start: 04-10-2024 End: 04-10-2024 Home visit Betty Barksdale PT Work Phone: [facility] Comment on above: PT AGENCY DC W VISIT Start: 04-07-2024 End: 04-07-2024 Home visit Bree Lupe PORTRAIT STUDIO PHOTOGRAPHER Work Phone: [facility] Comment on above: PORTRAIT STUDIO PHOTOGRAPHER ROUTINE Start: 04-04-2024 End: 04-04-2024 Home visit Bree Lupe PORTRAIT STUDIO PHOTOGRAPHER Work Phone: [facility] Comment on above: PORTRAIT STUDIO PHOTOGRAPHER ROUTINE Start: 04-02-2024 End: 04-02-2024 Telephone encounter Bree Lupe PORTRAIT STUDIO PHOTOGRAPHER Work Phone: [facility] Comment on above: Home Care (OP PT ord ers) Start: 04-02-2024 End: 04-02-2024 Home visit Bree Lupe PORTRAIT STUDIO PHOTOGRAPHER Work Phone: [facility] Comment on above: PORTRAIT STUDIO PHOTOGRAPHER ROUTINE Start: 03-31-2024 End: 03-31-2024 Patient encounter procedure Carisa Burch MD Work Phone: [facility] Comment on above: Closed complex fract ure of left tibia with routine healing, subsequent encounter (Primary Dx) Start: 03-31-2024 End: 03-31-2024 ambulatory ROSA WAKEFIELD Facility:[facility] Start: 03-27-2024 End: 03-27-2024 Home visit Bree Borden PORTRAIT STUDIO PHOTOGRAPHER Work Phone: [facility] Comment on above: PORTRAIT STUDIO PHOTOGRAPHER ROUTINE Start: 03-24-2024 End: 03-24-2024 Telephone encounter Carisa Burch MD Work Phone: [facility] Comment on above: Orders Start: 03-24-2024 End: 03-24-2024 Home visit Betty Barksdale PT Work Phone: [facility] Comment on above: PT CASE MANAGEMENT V ISIT SN EVAL Start: 03-21-2024 End: 03-21-2024 Home visit Nichole Ornelas RN Work Phone: [facility] Comment on above: CARE COORDINATION OT EVAL TELEPHONE CONTACT Start: 03-20-2024 End: 03-20-2024 Home visit Ning Corral PT Work Phone: [facility] Comment on above: PT SOC Start: 03-20-2024 End: 03-20-2024 Telephone encounter Ning Corral PT Work Phone: [facility] Comment on above: Home Care (P.T. Star t of Care) Start: 03-19-2024 End: 03-20-2024 Telephone encounter Umm Damon LPN Work Phone: [facility] Comment on above: Home Care (Confirmat ion call) Start: 03-11-2024 Emergency department patient visit ROSA WAKEFIELD Facility:[facility] Start: 03-11-2024 End: 03-11-2024 Emergency department patient visit Garrison Velásquez Facility:[facility] Start: 02-26-2024 End: 02-26-2024 ambulatory ROSA ASHU Facility:[facility] Start: 05-01-2023 End: 05-01-2023 ambulatory VENTILATOR SPECIALIST-C Yamilka Seffens VENTILATOR SPECIALIST Work Phone: [facility] Work Phone: Start: 05-01-2023 End: 05-01-2023 Patient encounter procedure VENTILATOR SPECIALIST-C Yamilka Seffens VENTILATOR SPECIALIST Work Phone: [facility] Work Phone: Start: 03-26-2023 End: 03-26-2023 Patient encounter procedure VENTILATOR SPECIALIST-C Yamilka Seffens VENTILATOR SPECIALIST Work Phone: [facility] Work Phone: Start: 02-04-2023 End: 02-04-2023 ambulatory VENTILATOR SPECIALIST-C Yamilka Seffens VENTILATOR SPECIALIST Work Phone: [facility] Work Phone: Start: 02-04-2023 End: 02-04-2023 Patient encounter procedure VENTILATOR SPECIALIST-C Yamilka Seffens VENTILATOR SPECIALIST Work Phone: [facility]Laboratory, Specimen Work Phone: Start: 02-04-2023 End: 02-04-2023 Patient encounter procedure VENTILATOR SPECIALIST-C Yamilka Seffens VENTILATOR SPECIALIST Work Phone: [facility] Work Phone: Start: 02-01-2023 End: 02-01-2023 ambulatory VENTILATOR SPECIALIST-C Yamilka Seffens VENTILATOR SPECIALIST Work Phone: [facility] Work Phone: Start: 02-01-2023 End: 02-01-2023 Patient encounter procedure VENTILATOR SPECIALIST-C Yamilka Seffens VENTILATOR SPECIALIST Work Phone: [facility] Work Phone: Start: 10-30-2022 End: 10-30-2022 Patient encounter procedure VENTILATOR SPECIALIST-C Yamilka Seffens VENTILATOR SPECIALIST Work Phone: [facility] Work Phone: Start: 10-16-2022 End: 10-16-2022 Patient encounter procedure VENTILATOR SPECIALIST-C Yamilka Ericns VENTILATOR SPECIALIST Work Phone: [facility] Work Phone: Start: 05-09-2022 Patient encounter procedure VENTILATOR SPECIALIST-C Yamilkaamilcar Reyesns VENTILATOR SPECIALIST Work Phone: [facility] Start: 05-03-2022 End: 05-03-2022 ambulatory VENTILATOR SPECIALIST-C Yamilka Ericns VENTILATOR SPECIALIST Work Phone: [facility] Work Phone: Start: 05-03-2022 End: 05-03-2022 Patient encounter procedure VENTILATOR SPECIALIST-C Yamilka Ericns VENTILATOR SPECIALIST Work Phone: [facility] Start: 02-08-2022 End: 02-08-2022 ambulatory VENTILATOR SPECIALIST-C Yamilkaamilcar Reyesns VENTILATOR SPECIALIST Work Phone: [facility] Work Phone: Start: 02-08-2022 End: 02-08-2022 Patient encounter procedure VENTILATOR SPECIALIST-C Yamilka ritons VENTILATOR SPECIALIST Work Phone: [facility] Start: 02-04-2022 End: 02-04-2022 ambulatory VENTILATOR SPECIALIST-C Yamilka Ericns VENTILATOR SPECIALIST Work Phone: [facility] Work Phone: Start: 02-04-2022 End: 02-04-2022 Patient encounter procedure VENTILATOR SPECIALIST-C Yamilka Ericns VENTILATOR SPECIALIST Work Phone: [facility] Start: 02-03-2022 Non-patient / Non-visit VENTILATOR SPECIALIST-C Cheryl Ayala VENTILATOR SPECIALIST Work Phone: [facility] Start: 02-03-2022 End: 09-09-2022 ambulatory VENTILATOR SPECIALIST-C Yamilka Seritons VENTILATOR SPECIALIST Work Phone: [facility] Work Phone: Start: 02-03-2022 End: 02-03-2022 Patient encounter procedure VENTILATOR SPECIALIST-C Yamilka Ayala VENTILATOR SPECIALIST Work Phone: [facility] Services/Neurology Start: 01-17-2022 End: 01-18-2022 Observation ALYCIA PARKER GLOBAL SALES MANAGER-STOCK CONTROL CLERK [facility] Start: 01-17-2022 End: 01-17-2022 Emergency department patient visit [facility] Procedures Date Procedure Procedure Detail Performing Clinician Start: 06-23-2024 Radiologic examinati on tibia & fibula 2 views Carisa Burch MD Work Phone: Start: 04-17-2024 H/O: surgery Status post surgery Eric Foreman PT Work Phone: Start: 03-31-2024 Radiologic examinati on tibia & fibula 2 views Carisa Burch MD Work Phone: Start: 03-11-2024 Antibody screen ROSA SAINZ Comment on above: Order Comment: Speci men Type: BLOOD SPECIMENOrdering Facility: [facility] Address: [address] [place] [address] Performed By: #### T SCR ####[facility] BLOOD BANKIA [id number] [place] [address] [place] Start: 02-05-2023 Bacterial nucleic ac id assay VENTILATOR SPECIALIST-C Yamilka Ayala VENTILATOR SPECIALIST Work Phone: Start: 02-05-2023 Chlamydia trachomatis (PCR) VENTILATOR SPECIALIST-C Yamilka Ayala VENTILATOR SPECIALIST Work Phone: Start: 02-05-2023 Urine culture VENTILATOR SPECIALIST-C Korin Ayala VENTILATOR SPECIALIST Work Phone: Start: 02-01-2023 CT of chest VENTILATOR SPECIALIST-C Nupur Ayala VENTILATOR SPECIALIST Work Phone: Start: 02-08-2022 MRI of abdomen with contrast VENTILATOR SPECIALIST-C Yamilka Ayala VENTILATOR SPECIALIST Work Phone: Start: 02-04-2022 CT of chest without contrast VENTILATOR SPECIALIST-C Yamilka Queta VENTILATOR SPECIALIST Work Phone: Start: 01-17-2022 CT of thorax, abdome n and pelvis with contrast H/O: surgery Status post surgery Bree mccrayon PORTRAIT STUDIO PHOTOGRAPHER Work Phone: H/O: surgery Status post surgery Wing Sim kson PT H/O: surgery Status post surgery Wing Sim kson PT H/O: surgery Status post surgery Wing Sim kson PT H/O: surgery Status post surgery Wing Sim kson PT H/O: surgery Status post surgery Skyler Th omas PT Work Phone: H/O: surgery Status post surgery Jenny K micahserena PORTRAIT STUDIO PHOTOGRAPHER Work Phone: H/O: surgery Status post surgery Jenny armando PORTRAIT STUDIO PHOTOGRAPHER Work Phone: H/O: surgery Status post surgery Skyler Th omas PT Work Phone: H/O: surgery Status post surgery Skyler Th omas PT Work Phone: H/O: surgery Status post surgery Skyler Th omas PT Work Phone: H/O: surgery Status post surgery Skyler Th omas PT Work Phone: H/O: surgery Status post surgery Skyler Th omas PT Work Phone: H/O: surgery Status post surgery Skyler Th omas PT Work Phone: H/O: surgery Status post surgery Skyler Th omas PT Work Phone: H/O: surgery Status post surgery Skyler Th omas PT Work Phone: H/O: surgery Status post surgery Jennypaula armando PORTRAIT STUDIO PHOTOGRAPHER Work Phone: H/O: surgery Status post surgery Skyler Th omas PT Work Phone: H/O: surgery Status post surgery Skyler Th omas PT Work Phone: H/O: surgery Status post surgery Skyler Th omas PT Work Phone: H/O: surgery Status post surgery Jenny armando PORTRAIT STUDIO PHOTOGRAPHER Work Phone: H/O: surgery Status post surgery Skyler Th omas PT Work Phone: H/O: surgery Status post surgery Skyler Th omas PT Work Phone: H/O: surgery Status post surgery Skyler Th omas PT Work Phone: H/O: surgery Status post surgery Jenny armando PORTRAIT STUDIO PHOTOGRAPHER Work Phone: H/O: surgery Status post surgery Wing Sim kson PT H/O: surgery Status post surgery Skyler Th omas PT Work Phone: H/O: surgery Status post surgery Jenny armando PORTRAIT STUDIO PHOTOGRAPHER Work Phone: H/O: surgery Status post surgery Skyler Th omas PT Work Phone: Hernia of abdominal cavity (disorder) ALYCIA KELSEALIV GLOBAL SALES MANAGER-STOCK CONTROL CLERK Plan of Treatment Date Care Activity Detail Author Start: 03-11-2034 Urine microalbumin profile DTaP,Tdap,Td Vaccine (5 - Td or Tdap) [facility] Start: 03-14-2027 Diabetes Screening Diabetes Screenin g [facility] Start: 12-22-2024 End: 12-22-2024 Patient encounter procedure 12/22/2024 10:00 AM EDT Office Visit [facility] [address] [place] [address] Carisa Burch MD [address] [address] LEFT TIB SX:03-11-24 [facility] Comment on above: LEFT TIB SX:03-11-24 Start: 08-25-2024 End: 08-25-2024 Admission to same day surgery center 08/25/2024 8:30 AM EDT OT/PT/Speech Visit [facility] [address] [place] [address] Skyler Foreman, PT [address] [place] [address] Status post surgery [Z98.890] [facility] Comment on above: Status post surgery [Z98.890] Start: 08-18-2024 End: 08-18-2024 Admission to same day surgery center 08/18/2024 9:30 AM EDT OT/PT/Speech Visit [facility] [address] [place] [address] KasNeelima londonoh, PORTRAIT STUDIO PHOTOGRAPHER [address] [place] [address] Status post surgery [Z98.890] [facility] Comment on above: Status post surgery [Z98.890] Start: 08-11-2024 End: 08-11-2024 Admission to same day surgery [place] 08/11/2024 10:45 AM EDT OT/PT/Speech Visit [facility] [address] [place] [address] Skyler Foreman, PT [address] [place] [address] Status post surgery [Z98.890] [facility] Comment on above: Status post surgery [Z98.890] Start: 08-04-2024 End: 08-04-2024 Admission to same day surgery center 08/04/2024 9:15 AM EDT OT/PT/Speech Visit [facility] [address] [place] [address] Skyler Foreman, PT [address] [place], [place] [id number] Status post surgery [Z98.890] [facility] Comment on above: Status post surgery [Z98.890] Start: 07-31-2024 End: 07-31-2024 Admission to same day surgery center 07/31/2024 10:00 AM EST OT/PT/Speech Visit [facility] [address] [place] [address] Skyler Foreman, PT [address] [place], [place] [address] Status post surgery [Z98.890] [facility] Comment on above: Status post surgery [Z98.890] Start: 07-28-2024 End: 07-28-2024 Admission to same day surgery center 07/28/2024 9:30 AM EST OT/PT/Speech Visit [facility] [address] [place] [address] Jenny Schmidt, PORTRAIT STUDIO PHOTOGRAPHER [address] [place] [address] Status post surgery [Z98.890] [facility] Comment on above: Status post surgery [Z98.890] Start: 07-24-2024 End: 07-24-2024 Admission to same day surgery [place] 07/24/2024 10:00 AM EST OT/PT/Speech Visit [facility] [address] [place] [address] Skyler Foreman, PT [address] [place], [place] [id number] Status post surgery [Z98.890] [facility] Comment on above: Status post surgery [Z98.890] Start: 07-21-2024 End: 07-21-2024 Admission to same day surgery center 07/21/2024 9:15 AM EST OT/PT/Speech Visit [facility] [address] [place] [address] Skyler Foreman, PT [address] [place], [place] [id number] Status post surgery [Z98.890] [facility] Comment on above: Status post surgery [Z98.890] Start: 07-17-2024 End: 07-17-2024 Admission to same day surgery center 07/17/2024 10:00 AM EST OT/PT/Speech Visit [facility] [address] [place] [address] Skyler Foreman, PT [address] [place], [place] [address] Status post surgery [Z98.890] [facility] Comment on above: Status post surgery [Z98.890] Start: 07-15-2024 End: 07-15-2024 Admission to same day surgery center 07/15/2024 8:45 AM EST OT/PT/Speech Visit [facility] [address] [place] [address] Jenny Schmidt, PORTRAIT STUDIO PHOTOGRAPHER [address] [place] [address] Status post surgery [Z98.890] [facility] Comment on above: Status post surgery [Z98.890] Start: 07-08-2024 End: 07-08-2024 Admission to same day surgery [place] 07/08/2024 3:45 PM EST OT/PT/Speech Visit [facility] [address] [place] [address] Skyler Foreman, PT [address] [place], [place] [id number] Status post surgery [Z98.890] [facility] Comment on above: Status post surgery [Z98.890] Start: 06-27-2024 End: 06-27-2024 Admission to same day surgery center 06/27/2024 9:30 AM EST OT/PT/Speech Visit [facility] [address] [place] [address] Skyler Foreman, PT [address] [place] [address] Status post surgery [Z98.890 (ICD-10-CM)] [facility] Comment on above: Status post surgery [Z98.890 (ICD-10-CM)] Start: 06-24-2024 End: 06-24-2024 Admission to same day surgery center 06/24/2024 9:30 AM EST OT/PT/Speech Visit [facility] [address] [place] [address] Skyler Foreman, PT [address] [place], [place] [phone] Status post surgery [Z98.890 (ICD-10-CM)] [facility] Comment on above: Status post surgery [Z98.890 (ICD-10-CM)] Start: 06-23-2024 End: 06-23-2024 Patient encounter procedure 06/23/2024 10:15 AM EST Office Visit [facility] [address] [place] [address] Carisa Burch MD [address] [address] L tib [facility] Comment on above: L tib Start: 06-20-2024 End: 06-20-2024 Admission to same day surgery center 06/20/2024 10:15 AM EST OT/PT/Speech Visit [facility] [address] [place] [address] Skyler Foreman, PT [address] [place], [place] [address] Status post surgery [Z98.890 (ICD-10-CM)] [facility] Comment on above: Status post surgery [Z98.890 (ICD-10-CM)] Start: 06-17-2024 End: 06-17-2024 Admission to same day surgery center 06/17/2024 9:30 AM EST OT/PT/Speech Visit [facility] [address] [place] [address] Skyler Foreman, PT [address] [place], [place] [address] Status post surgery [Z98.890 (ICD-10-CM)] [facility] Comment on above: Status post surgery [Z98.890 (ICD-10-CM)] Start: 06-13-2024 End: 06-13-2024 Admission to same day surgery center 06/13/2024 11:00 AM EST OT/PT/Speech Visit [facility] [address] [place] [address] Skyler Foreman, PT [address] [place], [place] [address] Status post surgery [Z98.890 (ICD-10-CM)] [facility] Comment on above: Status post surgery [Z98.890 (ICD-10-CM)] Start: 06-10-2024 End: 06-10-2024 Admission to same day surgery center 06/10/2024 9:30 AM EST OT/PT/Speech Visit [facility] [address] [place] [address] Skyler Foreman, PT [address] [place] [address] Status post surgery [Z98.890 (ICD-10-CM)] [facility] Comment on above: Status post surgery [Z98.890 (ICD-10-CM)] Start: 06-06-2024 End: 06-06-2024 Admission to same day surgery center 06/06/2024 9:30 AM EST OT/PT/Speech Visit [facility] [address] [place] [address] Skyler Foreman, PT [address] [place] [address] Status post surgery [Z98.890 (ICD-10-CM)] [facility] Comment on above: Status post surgery [Z98.890 (ICD-10-CM)] Start: 06-04-2024 End: 06-04-2024 Admission to same day surgery center 06/04/2024 3:30 PM EST OT/PT/Speech Visit [facility] [address] [place] [address] Jenny Schmidt, PORTRAIT STUDIO PHOTOGRAPHER [address] [place] [address] Status post surgery [Z98.890] [facility] Comment on above: Status post surgery [Z98.890] Start: 05-30-2024 End: 05-30-2024 Admission to same day surgery center 05/30/2024 10:15 AM EST OT/PT/Speech Visit [facility] [address] [place] [address] [facility] Jenny, PORTRAIT STUDIO PHOTOGRAPHER [address] [place] [address] x: Status post surgery [Z98.890 (ICD-10-CM)] [facility] Comment on above: x: Status post surge ry [Z98.890 (ICD-10-CM)] Start: 05-27-2024 End: 05-27-2024 Admission to same day surgery center 05/27/2024 8:30 AM EST OT/PT/Speech Visit [facility] [address] [place] [address] Skyler Foreman, PT [address] [place], [place] [phone] x: Status post surgery [Z98.890 (ICD-10-CM)] [facility] Comment on above: x: Status post surge ry [Z98.890 (ICD-10-CM)] Start: 05-16-2024 End: 05-16-2024 Admission to same day surgery center 05/16/2024 9:30 AM EST OT/PT/Speech Visit [facility] [address] [place] [address] Skyler Foreman, PT [address] [place], [place] [phone] Status post surgery [Z98.890] [facility] Comment on above: Status post surgery [Z98.890] Start: 05-12-2024 End: 05-12-2024 Admission to same day surgery center 05/12/2024 10:45 AM EST OT/PT/Speech Visit [facility] [address] [place] [address] Wing Henderson PT Status post surgery [Z98.890] [facility] Comment on above: Status post surgery [Z98.890] Start: 05-08-2024 End: 05-08-2024 Admission to same day surgery [place] 05/08/2024 9:30 AM EST OT/PT/Speech Visit [facility] [address] [place] [address] KasNeelima solomonh, [facility] [address] [place] [address] Status post surgery [Z98.890] [facility] Comment on above: Status post surgery [Z98.890] Start: 05-05-2024 End: 05-05-2024 [facility] 05/05/2024 12:15 PM EST OT/PT/Speech Visit [facility] [address] [place] [address] Skyler Foreman PT [address] [place] [address] Status post surgery [Z98.890] [facility] Comment on above: Status post surgery [Z98.890] Start: 04-30-2024 End: 04-30-2024 Admission to same day surgery [place] 04/30/2024 9:45 AM EST [facility] Physical Therapy [address] [place] [address] Wing Henderson PT Status post surgery [Z98.890] [facility] Comment on above: Status post surgery [Z98.890] Start: 04-28-2024 End: 04-28-2024 Admission to same day surgery [facility] 04/28/2024 10:45 AM EST OT/PT/Speech Visit [facility] [address] [place] [address] Wing Henderson PT Status post surgery [Z98.890] [facility] Comment on above: Status post surgery [Z98.890] Start: 04-25-2024 End: 04-25-2024 Admission to same day surgery center 04/25/2024 10:30 AM EST OT/PT/Speech Visit [facility] [address] [place] [address] Wing Henderson PT Status post surgery [Z98.890] [facility] Comment on above: Status post surgery [Z98.890] Start: 04-22-2024 End: 04-22-2024 Admission to same day surgery center 04/22/2024 12:30 PM EST OT/PT/Speech Visit [facility] [address] [place] [address] Wing Henderson PT Status post surgery [Z98.890] [facility] Comment on above: Status post surgery [Z98.890] Start: 04-17-2024 End: 04-17-2024 ambulatory 04/17/2024 12:15 PM EST OT/PT/Speech Visit [facility] [address] [place] [address] Skyler Foreman PT [address], [place] [id number] LT TIB FX [facility] DC 04/10 [facility] Comment on above: LT TIB FX [facility] DC Start: 03-31-2024 End: 03-31-2024 Patient encounter procedure 03/31/2024 10:15 AM EST Office Visit [facility] [address] [place] [address] Carisa Burch MD [address] [address] po L tib 10-15 [facility] Comment on above: po L tib 10-15 Start: 01-27-2024 Covid-19 Vaccine ( season) Covid-19 Vaccine ( season) [facility] Start: 02-05-2023 Urine culture Urine Culture [facility] Start: 02-05-2023 [facility] Start: 10-16-2022 Patient referral [facility] Work Phone: Start: 02-08-2022 MR Abdomen WO and W contrast IV [facility] Work Phone: Start: 02-08-2022 MRI of abdomen with contrast MRI Abd WITH and W/O Contrast [facility] Work Phone: Start: 2020 Prostate specific antigen measurement Prostate Cancer Screening Discussion [facility] Start: 12-15-2015 Shingrix Vaccine (1 of 2) Shingrix Vaccine (1 of 2) [facility] Start: 2010 Screening for malign ant neoplasm of colon [facility] Start: 2000 Lipid panel Lipid Screening [facility] Start: 1984 Hepatitis B Vaccine (1 of 3 - 19+ 3-dose series) Hepatitis B Vaccine (1 of 3 - 19+ 3-dose series) [facility] Start: 12-15-1983 Anxiety Screening Anxiety Screening [facility] Start: 12-15-1983 Depression Screening Depression Scre ening [facility] Start: 12-15-1983 Hepatitis C screening Hepatitis C Sc reening [facility] Start: 12-15-1983 HIV screening HIV Screening [facility] CT Chest [facility] Patient Education ED Abdominal P ain Unkn Cause Male... [facility] Work Phone: Patient referral [facility] Work Phone: Immunizations Immunization Date Immunization Notes Care Provider Renita de la rosa 03-13-2024 influenza, seasonal, injectable, preservative free Umm Damon LPN Work Phone: [facility] 03-11-2024 tetanus toxoid, redu kyle diphtheria toxoid, and acellular pertussis vaccine, adsorbed Umm Damno LPN Work Phone: [facility] 05-11-2021 SARS-CoV-2 mRNA (tozinameran) vaccine ALYCIA PARKER GLOBAL SALES MANAGER-STOCK CONTROL CLERK [facility] 09-07-2020 SARS-CoV-2 mRNA (tozinameran) vaccine ALYCIA YANGMansi GLOBAL SALES MANAGER-STOCK CONTROL CLERK [facility] 08-16-2020 SARS-CoV-2 mRNA (tozinameran) vaccine ALYCIA YANGMansi GLOBAL SALES MANAGER-STOCK CONTROL CLERK [facility] 05-19-2020 tetanus toxoid, redu kyle diphtheria toxoid, and acellular pertussis vaccine, adsorbed ALYCIA PARKER GLOBAL SALES MANAGER-STOCK CONTROL CLERK [facility] 04-23-2020 influenza virus vacc ine, unspecified formulation ALYCIA PARKER GLOBAL SALES MANAGER-STOCK CONTROL CLERK [facility] 04-23-2019 pneumococcal polysaccharide vaccine, 23 valent ALYCIA PARKER GLOBAL SALES MANAGER-STOCK CONTROL CLERK [facility] 03-15-2019 influenza virus vacc ine, unspecified formulation ALYCIASHANNON PARKER GLOBAL SALES MANAGER-STOCK CONTROL CLERK [facility] 03-08-2018 influenza virus vacc ine, unspecified formulation ALYCIA PARKER GLOBAL SALES MANAGER-STOCK CONTROL CLERK [facility] 07-25-2017 tetanus toxoid, redu kyle diphtheria toxoid, and acellular pertussis vaccine, adsorbed [facility] 02-22-2009 measles/mumps/rubell a virus vaccine ALYCIA YANGMansi GLOBAL SALES MANAGER-STOCK CONTROL CLERK [facility] 01-20-2009 measles/mumps/rubell a virus vaccine ALYCIA YANGMansi GLOBAL SALES MANAGER-STOCK CONTROL CLERK [facility] 01-20-2009 tetanus toxoid, redu kyle diphtheria toxoid, and acellular pertussis vaccine, adsorbed ALYCIA YANGMansi GLOBAL SALES MANAGER-STOCK CONTROL CLERK [facility] Payers Date Payer Category Payer Self-pay [id number] 2023 Blue Cross Blue [facility] BLUE CARD PPO OOS [id number] 2023 Unknown [id number] 2023 Unknown [id number] Medicaid [id number] Unknown [id number] Unknown [id number] Unknown [id number] Unknown [id number] Unknown [id number] Social History Date Type Detail Facility Start: 01-17-2022 End: 03-26-2023 Tobacco smoking status NHIS Unknown if ever smoked [facility] Start: 05-23-2019 Cigarettes [facility] Start: 1965 Sex Assigned At Male [facility] Start: 01-17-2022 Tobacco smoking status Heavy tobacco smoker (finding) [facility] Sex Assigned At Sex [facility] Start: 03-12-2024 End: 03-13-2024 History of Social function [facility] Start: 03-12-2024 End: 03-13-2024 [facility] Utilities [facility] Has the electric, [employer], oil, or water company threatened to shut off services in your home in past 12Mo No [facility] (I/We) worried yonatan er (my/our) food would run out before (I/we) got money to buy more. Never true [facility] In the past 12 month s, has lack of transportation kept you from medical appointments or from getting medications? No [facility] Start: 1965 Sex assigned at Not on file [facility] Start: 03-22-2024 Gender identity Identifies as male gender (finding) [facility] Start: 03-22-2024 Sexual orientation Heterosexual (finding) [facility] Start: 03-31-2024 Tobacco smoking status MIIS Never smoked tobacco [facility] Start: 03-31-2024 Tobacco use and exposure Smokeless tobacco non-user [facility] Start: 03-31-2024 End: 06-23-2024 Alcoholic beverage intake Lifetime non-drinker (finding) [facility] Start: 06-03-2024 Tobacco smoking status NHIS Ex-smoker (finding) [facility] Medical Equipment Procedure Code Equipment Code Equipment Origin al Text Equipment Identifier Dates Screw Bone 5x65m m Sterile Locking T2 Alpha Nailing System [id number] Start: 03-12-2024 Nail Insertion Sleeve - [id number] Start: 03-12-2024 Tibial Nail 9x34 5mm - [id number] Start: 03-12-2024 Locking Screw 5x 35mm - [id number] Start: 03-12-2024 Locking Screw 5x 45mm - [id number] Start: 03-12-2024 Screw Bone 5mm 37.5mm T2 Alpha Lock Sterile - [id number] Start: 03-12-2024 Locking Screw 5x 40mm - [id number] Start: 03-12-2024 Functional Status Date Assessment Result Facility 10-23-2024 Are you deaf, or do you have serious difficulty hearing No 03/19/2024 1:41 PM Sravan Alegria RN No [facility] 03-19-2024 Are you blind, or do you have serious difficulty seeing, even when wearing glasses No 03/19/2024 1:41 PM Sravan Alegria, EVA No [facility] 03-19-2024 Do you have serious difficulty walking or climbing stairs No 03/19/2024 1:41 PM Sravan Alegria, EVA No [facility] 03-19-2024 Do you have difficul ty dressing or bathing No 03/19/2024 1:41 PM Sravan Alegria RN No [facility] 03-19-2024 Because of a physica l, mental, or emotional condition, do you have difficulty doing errands alone such as visiting a physician's office or shopping No 03/19/2024 1:41 PM Sravan Alegria RN No [facility] 01-18-2022 Functional Status Independent [facility] 01-18-2022 Functional Status [facility] 01-18-2022 Functional Status [facility] 01-18-2022 Functional Status Driving, utilization management rn, Home management, Laundry, Meal preparation, Personal ADL, Work [facility] 01-18-2022 Functional Status [facility] 01-18-2022 Functional Status [facility] 01-17-2022 Functional Status [facility] 01-17-2022 Functional Status None [facility] Mental Status Date Assessment Result Facility 03-19-2024 Because of a physica l, mental, or emotional condition, do you have serious difficulty concentrating, remembering, or making decisions No 03/19/2024 1:41 PM Sravan Alegria RN No [facility] 01-18-2022 Mental Status Orientation Asse ssment Oriented x 4 [facility] 01-18-2022 Mental Status Oriented x 4 [facility] 01-18-2022 Mental Status [facility] 01-18-2022 Mental Status [facility] 01-17-2022 Mental Status [facility] Clinical Notes 01-17-2022 to 08-18-2024 Skyler Foreman, PT - 08/18/2024 9:29 AM Skyler Stevens, PT - 08/11/2024 10:48 AM Skyler Stevens, PT - 08/04/2024 9:16 AM Skyler Stevens, PT - 07/31/2024 10:03 AM EST Note Date & Type Note Facility 08-18-2024 Note HNO ID: [id number] Author: SKYLER FOREMAN PT Service: ? Author Type: Physical Therapist Type: Progress Notes Filed: 08/21/2024 08:12 Note Text: Episode Visit Count: 29 Therapist That Will Accept/Oversee The Plan Of Care: Skyler Foreman PT Start of Care Date: 04/17/24 Onset Date: 03/11/24 Patient Identified by Name and Date of : Yes REHABILITATION AND SPORTS THERAPY PHYSICAL THERAPY TREATMENT NOTE ASSESSMENT: Richard Head tolerated the session with fatigue and expected muscle soreness. He demonstrated difficulty with lateral walkouts to the L at [facility]. The patient will continue to benefit from ongoing skilled physical therapy to progress toward set goals. PLAN FOR NEXT VISIT: PN SUBJECTIVE: Pt states that his knee is feeling good. Pt states that he was digging out a big stump yesterday and flared his back and falcon up. Having trouble pushing heavy wheel [place]. Pain: Pain Pain Level: (not much in the leg, more back pain 4-5/10) Pain Location: Leg - Left Post Treatment Pain Post Treatment Pain Level: No Change OBJECTIVE MEASURES WITH LEVEL OF FUNCTION: Decreased heel to toe pattern intermittently throughout session. TREATMENT: Therapeutic Exercise: 1: Stationary bike x 5 min (1:1 time spent and subjective taken) 2: Lateral walk outs at [facility] 1 plate plus 2 round x 10 each direction 3: Retro- walking at [facility] 2 plates plus 2 round x 10 rounds 4: Goblet squat holding 10# x 10, then x 10 at 20# 5: SL HS curls 1x10 40#, then 2x10 at 50# 6: SL LP 70# 3x12 Skilled Intervention: Patient was educated in proper exercise technique and purpose for exercises. Skilled judgment was used in selection of appropriate interventions. Correct performance of therapeutic exercises was facilitated with verbal and visual cuing. Neuromuscular Re-Education: 1: Side stepping on BOSU with LLE with alt RLE high knee 3x10 Skilled Intervention: Skilled judgment used to assess appropriate program for balance and coordination activity. Billing Therapeutic Exercise Treatment Minutes: 33 Neuromuscular Re-Education Treatment Minutes: 8 Skilled Treatment Time Minutes (timed and untimed codes): 41 Total Session Time (minutes): 41 Session Start Time : 926 Session Stop Time : 1007 NATHEN Salcedo, PT [facility] 08-18-2024 History of Presen t illness Narrative Episode Visit Count: 29 Therapist That Will Accept/Oversee The Plan Of Care: Skyler Foreman PT Start of Care Date: 04/17/24 Onset Date: 03/11/24 Patient Identified by Name and Date of : Yes REHABILITATION AND SPORTS THERAPY PHYSICAL THERAPY TREATMENT NOTE ASSESSMENT: Richard Head tolerated the session with fatigue and expected muscle soreness. He demonstrated difficulty with lateral walkouts to the L at [facility]. The patient will continue to benefit from ongoing skilled physical therapy to progress toward set goals. PLAN FOR NEXT VISIT: PN SUBJECTIVE: Pt states that his knee is feeling good. Pt states that he was digging out a big stump yesterday and flared his back and falcon up. Having trouble pushing heavy wheel [place]. Pain: Pain Pain Level: (not much in the leg, more back pain 4-5/10) Pain Location: Leg - Left Post Treatment Pain Post Treatment Pain Level: No Change OBJECTIVE MEASURES WITH LEVEL OF FUNCTION: Decreased heel to toe pattern intermittently throughout session. TREATMENT: Therapeutic Exercise: 1: Stationary bike x 5 min (1:1 time spent and subjective taken) 2: Lateral walk outs at [facility] 1 plate plus 2 round x 10 each direction 3: Retro- walking at [facility] 2 plates plus 2 round x 10 rounds 4: Goblet squat holding 10# x 10, then x 10 at 20# 5: SL HS curls 1x10 40#, then 2x10 at 50# 6: SL LP 70# 3x12 Skilled Intervention: Patient was educated in proper exercise technique and purpose for exercises. Skilled judgment was used in selection of appropriate interventions. Correct performance of therapeutic exercises was facilitated with verbal and visual cuing. Neuromuscular Re-Education: 1: Side stepping on BOSU with LLE with alt RLE high knee 3x10 Skilled Intervention: Skilled judgment used to assess appropriate program for balance and coordination activity. Billing Therapeutic Exercise Treatment Minutes: 33 Neuromuscular Re-Education Treatment Minutes: 8 Skilled Treatment Time Minutes (timed and untimed codes): 41 Total Session Time (minutes): 41 Session Start Time : 926 Session Stop Time : 1007 Jennypaula Schmidt, PORTRAIT STUDIO PHOTOGRAPHER Skyler Foreman PT documented in this encounter [facility] 08-11-2024 Note HNO ID: [id number] Author: SKYLER FOREMAN PT Service: ? Author Type: Physical Therapist Type: Progress Notes Filed: 08/11/2024 11:31 Note Text: Episode Visit Count: 28 Therapist That Will Accept/Oversee The Plan Of Care: Skyler Foreman PT Start of Care Date: 04/17/24 Onset Date: 03/11/24 Patient Identified by Name and Date of : Yes REHABILITATION AND SPORTS THERAPY PHYSICAL THERAPY TREATMENT NOTE ASSESSMENT: Richard Head tolerated the session with fatigue and expected muscle soreness. He demonstrated good form with all therapeutic exercises. The patient will continue to benefit from ongoing skilled physical therapy to progress toward set goals. PLAN FOR NEXT VISIT: LLE strengthening as tolerated SUBJECTIVE: Still gets hard to get going after sitting for a bit. Pain: Pain Pain Level: (Not rated) Pain Location: Leg - Left OBJECTIVE MEASURES WITH LEVEL OF FUNCTION: Slight antalgic gait for 5 steps after rising from a chair TREATMENT: Therapeutic Exercise: 1: Stationary bike x 5 min (1:1 time spent and subjective taken) 2: Goblet squat holding 20# x 20 3: SL heel raise x 40 4: Supine SLR 5# 2 x 15 5: Quadruped ankle DF stretch 3 x 30 sec Skilled Intervention: Patient was educated in proper exercise technique and purpose for exercises. Correct performance of therapeutic exercises was facilitated with verbal and visual cuing. Neuromuscular Re-Education: 1: Sidestepping over BOSU 2 x 10 R and L 2: SL stance 2 x 30 sec Skilled Intervention: Skilled judgment used to assess appropriate program for balance and coordination activity. Billing Therapeutic Exercise Treatment Minutes: 34 Neuromuscular Re-Education Treatment Minutes: 8 Skilled Treatment Time Minutes (timed and untimed codes): 42 Total Session Time (minutes): 42 Session Start Time : 1048 Session Stop Time : 1130 Skyler Foreman PT [facility] 08-11-2024 History of Presen t illness Narrative Episode Visit Count: 28 Therapist That Will Accept/Oversee The Plan Of Care: Skyler Foreman PT Start of Care Date: 04/17/24 Onset Date: 03/11/24 Patient Identified by Name and Date of : Yes REHABILITATION AND SPORTS THERAPY PHYSICAL THERAPY TREATMENT NOTE ASSESSMENT: Richard Head tolerated the session with fatigue and expected muscle soreness. He demonstrated good form with all therapeutic exercises. The patient will continue to benefit from ongoing skilled physical therapy to progress toward set goals. PLAN FOR NEXT VISIT: LLE strengthening as tolerated SUBJECTIVE: Still gets hard to get going after sitting for a bit. Pain: Pain Pain Level: (Not rated) Pain Location: Leg - Left OBJECTIVE MEASURES WITH LEVEL OF FUNCTION: Slight antalgic gait for 5 steps after rising from a chair TREATMENT: Therapeutic Exercise: 1: Stationary bike x 5 min (1:1 time spent and subjective taken) 2: Goblet squat holding 20# x 20 3: SL heel raise x 40 4: Supine SLR 5# 2 x 15 5: Quadruped ankle DF stretch 3 x 30 sec Skilled Intervention: Patient was educated in proper exercise technique and purpose for exercises. Correct performance of therapeutic exercises was facilitated with verbal and visual cuing. Neuromuscular Re-Education: 1: Sidestepping over BOSU 2 x 10 R and L 2: SL stance 2 x 30 sec Skilled Intervention: Skilled judgment used to assess appropriate program for balance and coordination activity. Billing Therapeutic Exercise Treatment Minutes: 34 Neuromuscular Re-Education Treatment Minutes: 8 Skilled Treatment Time Minutes (timed and untimed codes): 42 Total Session Time (minutes): 42 Session Start Time : 1048 Session Stop Time : 1130 Skyler Foreman PT documented in this encounter [facility] 08-04-2024 Note HNO ID: [id number] Author: SKYLER FOREMAN PT Service: ? Author Type: Physical Therapist Type: Progress Notes Filed: 08/04/2024 11:24 Note Text: Episode Visit Count: 27 Therapist That Will Accept/Oversee The Plan Of Care: Skyler Foreman PT Start of Care Date: 04/17/24 Onset Date: 03/11/24 Patient Identified by Name and Date of : Yes REHABILITATION AND SPORTS THERAPY PHYSICAL THERAPY PROGRESS REPORT PLAN OF CARE UPDATE: Assessment: Richard Head demonstrates difficulty with gait quality and improvements in LLE strength, ROM, flexibility, and level of independence with the HEP. The patient has progressed toward goals. Patient continues to present with impairments in gait, independence in exercise, overall function, and strength that interfere with walking, working, stair negotiation . Current prognosis is Good due to: current objective clinical presentation . The patient will benefit from continued skilled therapy services to meet the updated goals for this plan of care as noted below. Goals updated 06/27/24 Goals for Episode of Care: established 04/17/24 [place] in home exercise program. - Met so far Perform squats, kneeling, and walking without pain. - Not met Increase ROM of L knee to 0-130 degrees of flexion for improved gait quality and stability with ADL's - Progressing, will continue Increased strength of LLE to 5/5 for return to work - Progressing, will continue Normal gait. - Progressing Reciprocal stair negotiation. - Not met Patient Goals: Return to work Time Frame for Goals and Treatment : 07/10/24 Patient Goals: Return to work Planned Interventions, Frequency, and Duration: 1x/week, 4 weeks Total Number of Visits Planned: 4 Patient to be seen for Therapeutic exercise (98614), Neuromuscular re-education (18456), Manual therapy (76874), Therapeutic activities (97776), Self-snf management (83652), Gait Training (44529), Patient/Family/Caregiver Education PLAN FOR NEXT VISIT: Work on gait quality. Stationary bike. LE strengthening. SUBJECTIVE: Patient Goals: Return to work Functional Limitations: walking, working, stair negotiation Prior Level of Function: Independent without limitations Intake Information: Prescription present Previous Treatment: Surgery Pain: Pain Pain Level: (Not rated) Pain Location: Leg - Left Description: (Sharp pain at times in the lower leg around the falcon. It feels like falcon splints) PROMIS Scales 07/08/2024 06/16/2024 06/12/2024 Higher is Better Phys Func - T Score 36 (moderate dysfunction) 36 (moderate dysfunction) Phys Func - Percentile 8 8 Self-Eff Symptom - T Score 41 (Average) 38 (Low) Self-Eff Symptom - Percentile 18 12 T-scores: mean of general population = 50. 5 points is clinically meaningfully difference Percentiles provide an indication of how the patient's score ranks in relation to the general population. Higher percentile rankings indicate better function/quality of life. 50th percentile is the average of the general population and indicates half of respondents had a worse score. OBJECTIVE MEASURES WITH LEVEL OF FUNCTION: Knee Observations R Knee Palpation Tenderness: No tenderness noted L Knee Palpation Tenderness: No tenderness noted LE AROM R LE AROM: WNL L LE AROM: WNL LE PROM R Hip Internal Rotation: 10 Degrees L Hip Internal Rotation: 3 Degrees LE Flexibility R Gastrocnemius Flexibility: WNL L Gastrocnemius Flexibility: WNL LE Joint Mobility R Patellar Mobility: WNL L Patellar Mobility: WNL LE Strength R LE Strength: Grossly 5/5 L Hip Flexion (L2): 5/5 L Hip ABduction: 4+/5 L Hip External Rotation: 4/5 L Knee Flexion: 4+/5 L Ankle Dorsiflexion (L4): 5/5 TREATMENT: Therapeutic Exercise: 1: All objective measures taken 2: Seated B hip IR stretch 4 x 30 sec 3: Extensive discussion about HEP and expected progress over the next month of digital marketing intern Intervention: Patient was educated in proper exercise technique and purpose for exercises. Provided written instruction for home exercise program to facilitate proper performance and compliance. Correct performance of therapeutic exercises was facilitated with verbal and visual cuing. Billing Therapeutic Exercise Treatment Minutes: 29 Skilled Treatment Time Minutes (timed and untimed codes): 29 Total Session Time (minutes): 29 Session Start Time : 915 Session Stop Time : 944 Skyler Foreman PT [facility] 08-04-2024 History of Presen t illness Narrative Images from the original note were not included. Episode Visit Count: 27 Therapist That Will Accept/Oversee The Plan Of Care: Skyler Foreman PT Start of Care Date: 04/17/24 Onset Date: 03/11/24 Patient Identified by Name and Date of : Yes REHABILITATION AND SPORTS THERAPY PHYSICAL THERAPY PROGRESS REPORT PLAN OF CARE UPDATE: Assessment: Richard Head demonstrates difficulty with gait quality and improvements in LLE strength, ROM, flexibility, and level of independence with the HEP. The patient has progressed toward goals. Patient continues to present with impairments in gait, independence in exercise, overall function, and strength that interfere with walking, working, stair negotiation . Current prognosis is Good due to: current objective clinical presentation . The patient will benefit from continued skilled therapy services to meet the updated goals for this plan of care as noted below. Goals updated 06/27/24 Goals for Episode of Care: established 04/17/24 [place] in home exercise program. - Met so far Perform squats, kneeling, and walking without pain. - Not met Increase ROM of L knee to 0-130 degrees of flexion for improved gait quality and stability with ADL's - Progressing, will continue Increased strength of LLE to 5/5 for return to work - Progressing, will continue Normal gait. - Progressing Reciprocal stair negotiation. - Not met Patient Goals: Return to work Time Frame for Goals and Treatment : 07/10/24 Patient Goals: Return to work Planned Interventions, Frequency, and Duration: 1x/week, 4 weeks Total Number of Visits Planned: 4 Patient to be seen for Therapeutic exercise (76644), Neuromuscular re-education (30006), Manual therapy (58350), Therapeutic activities (72107), Self-snf management (84232), Gait Training (67878), Patient/Family/Caregiver Education PLAN FOR NEXT VISIT: Work on gait quality. Stationary bike. LE strengthening. SUBJECTIVE: Patient Goals: Return to work Functional Limitations: walking, working, stair negotiation Prior Level of Function: Independent without limitations Intake Information: Prescription present Previous Treatment: Surgery Pain: Pain Pain Level: (Not rated) Pain Location: Leg - Left Description: (Sharp pain at times in the lower leg around the falcon. It feels like falcon splints) PROMIS Scales 07/08/2024 06/16/2024 06/12/2024 Higher is Better Phys Func - T Score 36 (moderate dysfunction) 36 (moderate dysfunction) Phys Func - Percentile 8 8 Self-Eff Symptom - T Score 41 (Average) 38 (Low) Self-Eff Symptom - Percentile 18 12 T-scores: mean of general population = 50. 5 points is clinically meaningfully difference Percentiles provide an indication of how the patient's score ranks in relation to the general population. Higher percentile rankings indicate better function/quality of life. 50th percentile is the average of the general population and indicates half of respondents had a worse score. OBJECTIVE MEASURES WITH LEVEL OF FUNCTION: Knee Observations R Knee Palpation Tenderness: No tenderness noted L Knee Palpation Tenderness: No tenderness noted LE AROM R LE AROM: WNL L LE AROM: WNL LE PROM R Hip Internal Rotation: 10 Degrees L Hip Internal Rotation: 3 Degrees LE Flexibility R Gastrocnemius Flexibility: WNL L Gastrocnemius Flexibility: WNL LE Joint Mobility R Patellar Mobility: WNL L Patellar Mobility: WNL LE Strength R LE Strength: Grossly 5/5 L Hip Flexion (L2): 5/5 L Hip ABduction: 4+/5 L Hip External Rotation: 4/5 L Knee Flexion: 4+/5 L Ankle Dorsiflexion (L4): 5/5 TREATMENT: Therapeutic Exercise: 1: All objective measures taken 2: Seated B hip IR stretch 4 x 30 sec 3: Extensive discussion about HEP and expected progress over the next month of digital marketing intern Intervention: Patient was educated in proper exercise technique and purpose for exercises. Provided written instruction for home exercise program to facilitate proper performance and compliance. Correct performance of therapeutic exercises was facilitated with verbal and visual cuing. Billing Therapeutic Exercise Treatment Minutes: 29 Skilled Treatment Time Minutes (timed and untimed codes): 29 Total Session Time (minutes): 29 Session Start Time : 915 Session Stop Time : 944 Skyler Foreman PT documented in this encounter [facility] 07-31-2024 Note HNO ID: [id number] Author: SKYLER FOREMAN PT Service: ? Author Type: Physical Therapist Type: Progress Notes Filed: 07/31/2024 10:42 Note Text: Episode Visit Count: 26 Therapist That Will Accept/Oversee The Plan Of Care: Skyler Foreman PT Start of Care Date: 04/17/24 Onset Date: 03/11/24 Patient Identified by Name and Date of : Yes REHABILITATION AND SPORTS THERAPY PHYSICAL THERAPY TREATMENT NOTE ASSESSMENT: Richard Head tolerated the session with fatigue and expected muscle soreness. He demonstrated good form with all therapeutic exercises. Difficulty with falcon pain at the end of the session. The patient will continue to benefit from ongoing skilled physical therapy to progress toward set goals. PLAN FOR NEXT VISIT: PN SUBJECTIVE: Doing fine. Continuing with the HEP. The leg feels stiff like normal. Pain: Pain Pain Level: 0 Pain Location: Knee - Left OBJECTIVE MEASURES WITH LEVEL OF FUNCTION: Slight limp LLE TREATMENT: Therapeutic Exercise: 1: Stationary bike 5 min (1:1 time spent and subjective taken) 2: Sidestepping over BOSU L and R 2 x 10 with 3# on L ankle 3: F step down on BOSU 3# at ankle 2 x 10 4: Standing hip abd 3# at ankle 3 x 15 5: 6 lateral heel tap holding 10# KB 4 x 10 6: SL heel raises 2 x 25 7: Squat and sidestep GTB at knees 10 steps L and R x 3 8: Wall slides x 10 then x8 Skilled Intervention: Patient was educated in proper exercise technique and purpose for exercises. Provided written instruction for home exercise program to facilitate proper performance and compliance. Correct performance of therapeutic exercises was facilitated with verbal and visual cuing. Billing Therapeutic Exercise Treatment Minutes: 39 Skilled Treatment Time Minutes (timed and untimed codes): 39 Total Session Time (minutes): 39 Session Start Time : 1003 Session Stop Time : 1042 Skyler Foreman PT [facility] 07-31-2024 History of Presen t illness Narrative Episode Visit Count: 26 Therapist That Will Accept/Oversee The Plan Of Care: Skyler Foreman PT Start of Care Date: 04/17/24 Onset Date: 03/11/24 Patient Identified by Name and Date of : Yes REHABILITATION AND SPORTS THERAPY PHYSICAL THERAPY TREATMENT NOTE ASSESSMENT: Richard Head tolerated the session with fatigue and expected muscle soreness. He demonstrated good form with all therapeutic exercises. Difficulty with falcon pain at the end of the session. The patient will continue to benefit from ongoing skilled physical therapy to progress toward set goals. PLAN FOR NEXT VISIT: PN SUBJECTIVE: Doing fine. Continuing with the HEP. The leg feels stiff like normal. Pain: Pain Pain Level: 0 Pain Location: Knee - Left OBJECTIVE MEASURES WITH LEVEL OF FUNCTION: Slight limp LLE TREATMENT: Therapeutic Exercise: 1: Stationary bike 5 min (1:1 time spent and subjective taken) 2: Sidestepping over BOSU L and R 2 x 10 with 3# on L ankle 3: F step down on BOSU 3# at ankle 2 x 10 4: Standing hip abd 3# at ankle 3 x 15 5: 6 lateral heel tap holding 10# KB 4 x 10 6: SL heel raises 2 x 25 7: Squat and sidestep GTB at knees 10 steps L and R x 3 8: Wall slides x 10 then x8 Skilled Intervention: Patient was educated in proper exercise technique and purpose for exercises. Provided written instruction for home exercise program to facilitate proper performance and compliance. Correct performance of therapeutic exercises was facilitated with verbal and visual cuing. Billing Therapeutic Exercise Treatment Minutes: 39 Skilled Treatment Time Minutes (timed and untimed codes): 39 Total Session Time (minutes): 39 Session Start Time : 1003 Session Stop Time : 1042 Skyler Foreman PT documented in this encounter [facility] 07-28-2024 Note HNO ID: [id number] Author: SKYLER FOREMAN PT Service: ? Author Type: Physical Therapist Type: Progress Notes Filed: 07/28/2024 11:39 Note Text: Episode Visit Count: 25 Therapist That Will Accept/Oversee The Plan Of Care: Skyler Foreman PT Start of Care Date: 04/17/24 Onset Date: 03/11/24 Patient Identified by Name and Date of : Yes REHABILITATION AND SPORTS THERAPY PHYSICAL THERAPY TREATMENT NOTE ASSESSMENT: Richard Head tolerated the session with fatigue and expected muscle soreness. He demonstrated improvements in tolerance to strengthening. The patient will continue to benefit from ongoing skilled physical therapy to progress toward set goals. PLAN FOR NEXT VISIT: If completing hip machine, try increasing weight to 40#. SUBJECTIVE: Pt reports that his leg is not too bad this morning. Just usual stiffness. Pain: Pain Pain Level: 0 Pain Location: Knee - Left Post Treatment Pain Post Treatment Pain Level: 0 Post Treatment Pain Location: Knee - Left OBJECTIVE MEASURES WITH LEVEL OF FUNCTION: Slight L knee valgus with TRX squats TREATMENT: Therapeutic Exercise: 1: Stationary bike 5 min (subjective taken and 1:1 time spent) 2: Lateral heel taps on 6 inch step 2x10 B 3: Eccentric quads forward step down on 6 inch step 3x10 4: SL LP 70# 3x12 5: SL HS curls 40# 3x10 6: Hip machine ABd, flexion, extension 30# x10 B 7: TRX squats 3x12 Skilled Intervention: Patient was educated in proper exercise technique and purpose for exercises. Skilled judgment was used in selection of appropriate interventions. Correct performance of therapeutic exercises was facilitated with verbal and visual cuing. Billing Therapeutic Exercise Treatment Minutes: 38 Skilled Treatment Time Minutes (timed and untimed codes): 38 Total Session Time (minutes): 38 Session Start Time : 932 Session Stop Time : 1010 NATHEN Salcedo PT [facility] 07-28-2024 History of Presen t illness Narrative Episode Visit Count: 25 Therapist That Will Accept/Oversee The Plan Of Care: Skyler Foreman PT Start of Care Date: 04/17/24 Onset Date: 03/11/24 Patient Identified by Name and Date of : Yes REHABILITATION AND SPORTS THERAPY PHYSICAL THERAPY TREATMENT NOTE ASSESSMENT: Richard Head tolerated the session with fatigue and expected muscle soreness. He demonstrated improvements in tolerance to strengthening. The patient will continue to benefit from ongoing skilled physical therapy to progress toward set goals. PLAN FOR NEXT VISIT: If completing hip machine, try increasing weight to 40#. SUBJECTIVE: Pt reports that his leg is not too bad this morning. Just usual stiffness. Pain: Pain Pain Level: 0 Pain Location: Knee - Left Post Treatment Pain Post Treatment Pain Level: 0 Post Treatment Pain Location: Knee - Left OBJECTIVE MEASURES WITH LEVEL OF FUNCTION: Slight L knee valgus with TRX squats TREATMENT: Therapeutic Exercise: 1: Stationary bike 5 min (subjective taken and 1:1 time spent) 2: Lateral heel taps on 6 inch step 2x10 B 3: Eccentric quads forward step down on 6 inch step 3x10 4: SL LP 70# 3x12 5: SL HS curls 40# 3x10 6: Hip machine ABd, flexion, extension 30# x10 B 7: TRX squats 3x12 Skilled Intervention: Patient was educated in proper exercise technique and purpose for exercises. Skilled judgment was used in selection of appropriate interventions. Correct performance of therapeutic exercises was facilitated with verbal and visual cuing. Billing Therapeutic Exercise Treatment Minutes: 38 Skilled Treatment Time Minutes (timed and untimed codes): 38 Total Session Time (minutes): 38 Session Start Time : 932 Session Stop Time : 1010 NATHEN Salcedo PT documented in this encounter [facility] 07-24-2024 Note HNO ID: [id number] Author: SKYLER FOREMAN PT Service: ? Author Type: Physical Therapist Type: Progress Notes Filed: 07/24/2024 10:45 Note Text: Episode Visit Count: 24 Therapist That Will Accept/Oversee The Plan Of Care: Skyler Foreman PT Start of Care Date: 04/17/24 Onset Date: 03/11/24 Patient Identified by Name and Date of : Yes REHABILITATION AND SPORTS THERAPY PHYSICAL THERAPY TREATMENT NOTE ASSESSMENT: Richard Head tolerated the session with fatigue and expected muscle soreness. He demonstrated good form with all therapeutic exercises. The patient will continue to benefit from ongoing skilled physical therapy to progress toward set goals. PLAN FOR NEXT VISIT: Continue to work on gait quality and strengthening SUBJECTIVE: The leg still gets more tired at the end of the day and the gait worsens. Pain: Pain Pain Level: (Not rated) Pain Location: Knee - Left OBJECTIVE MEASURES WITH LEVEL OF FUNCTION: TREATMENT: Therapeutic Exercise: 1: Stationary bike 5 min (subjective taken and 1:1 time spent) 3: Supine SLR with 5# ankle weight M cuff 140 mmHg x30, x 15, x 15, x 15 with 30 second rest between sets and 1 minutes rest between exercise 4: Lateral heel taps 9 step M cuff 196 mmHg x 30, x15, x15, x15 5: SL LP 70# with M cuff 140 mmHg x30,15,15,15 with 30 second rest between sets and 1 minutes rest between exercise 6: SL heel raise BFR M cuff 196 mmHg x30 x15 x15 x15 Skilled Intervention: Patient was educated in proper exercise technique and purpose for exercises. Provided written instruction for home exercise program to facilitate proper performance and compliance. Correct performance of therapeutic exercises was facilitated with verbal and visual cuing. Billing Therapeutic Exercise Treatment Minutes: 45 Skilled Treatment Time Minutes (timed and untimed codes): 45 Total Session Time (minutes): 45 Session Start Time : 1000 Session Stop Time : 1045 Skyler Foreman PT [facility] 07-24-2024 History of Presen t illness Narrative Episode Visit Count: 24 Therapist That Will Accept/Oversee The Plan Of Care: Skyler Foreman PT Start of Care Date: 04/17/24 Onset Date: 03/11/24 Patient Identified by Name and Date of : Yes REHABILITATION AND SPORTS THERAPY PHYSICAL THERAPY TREATMENT NOTE ASSESSMENT: Richard Head tolerated the session with fatigue and expected muscle soreness. He demonstrated good form with all therapeutic exercises. The patient will continue to benefit from ongoing skilled physical therapy to progress toward set goals. PLAN FOR NEXT VISIT: Continue to work on gait quality and strengthening SUBJECTIVE: The leg still gets more tired at the end of the day and the gait worsens. Pain: Pain Pain Level: (Not rated) Pain Location: Knee - Left OBJECTIVE MEASURES WITH LEVEL OF FUNCTION: TREATMENT: Therapeutic Exercise: 1: Stationary bike 5 min (subjective taken and 1:1 time spent) 3: Supine SLR with 5# ankle weight M cuff 140 mmHg x30, x 15, x 15, x 15 with 30 second rest between sets and 1 minutes rest between exercise 4: Lateral heel taps 9 step M cuff 196 mmHg x 30, x15, x15, x15 5: SL LP 70# with M cuff 140 mmHg x30,15,15,15 with 30 second rest between sets and 1 minutes rest between exercise 6: SL heel raise BFR M cuff 196 mmHg x30 x15 x15 x15 Skilled Intervention: Patient was educated in proper exercise technique and purpose for exercises. Provided written instruction for home exercise program to facilitate proper performance and compliance. Correct performance of therapeutic exercises was facilitated with verbal and visual cuing. Billing Therapeutic Exercise Treatment Minutes: 45 Skilled Treatment Time Minutes (timed and untimed codes): 45 Total Session Time (minutes): 45 Session Start Time : 1000 Session Stop Time : 1045 Skyler Foreman PT documented in this encounter [facility] 07-21-2024 Note HNO ID: [id number] Author: SKYLER FOREMAN PT Service: ? Author Type: Physical Therapist Type: Progress Notes Filed: 07/21/2024 09:56 Note Text: Episode Visit Count: 23 Therapist That Will Accept/Oversee The Plan Of Care: Skyler Foreman PT Start of Care Date: 04/17/24 Onset Date: 03/11/24 Patient Identified by Name and Date of : Yes REHABILITATION AND SPORTS THERAPY PHYSICAL THERAPY TREATMENT NOTE ASSESSMENT: Richard Head tolerated the session with expected muscle soreness. He demonstrated good form with all therapeutic exercises. The patient will continue to benefit from ongoing skilled physical therapy to progress toward set goals. PLAN FOR NEXT VISIT: Continue with LE strengthening as tolerated SUBJECTIVE: The falcon pain has gotten better. The walking is getting better. Pain: Pain Pain Location: Knee - Left OBJECTIVE MEASURES WITH LEVEL OF FUNCTION: TREATMENT: Therapeutic Exercise: 3: Supine SLR with 4# ankle weight M cuff 140 mmHg x30, x 15, x 15, x 15 with 30 second rest between sets and 1 minutes rest between exercise 6: SL heel raise BFR M cuff 196 mmHg x30 x15 x15 x15 7: Sidelying L hip abduction 4# M cuff 140 mmHg x30, x15, x15, x15 8: Standing squat M cuff 196 mmHg x30 x15 x15 x15 Skilled Intervention: Patient was educated in proper exercise technique and purpose for exercises. Provided written instruction for home exercise program to facilitate proper performance and compliance. Billing Therapeutic Exercise Treatment Minutes: 40 Skilled Treatment Time Minutes (timed and untimed codes): 40 Total Session Time (minutes): 40 Session Start Time : 0910 Session Stop Time : 0950 Skyler Foreman PT [facility] 07-21-2024 History of Presen t illness Narrative Episode Visit Count: 23 Therapist That Will Accept/Oversee The Plan Of Care: Skyler Foreman PT Start of Care Date: 04/17/24 Onset Date: 03/11/24 Patient Identified by Name and Date of : Yes REHABILITATION AND SPORTS THERAPY PHYSICAL THERAPY TREATMENT NOTE ASSESSMENT: Richard Head tolerated the session with expected muscle soreness. He demonstrated good form with all therapeutic exercises. The patient will continue to benefit from ongoing skilled physical therapy to progress toward set goals. PLAN FOR NEXT VISIT: Continue with LE strengthening as tolerated SUBJECTIVE: The falcon pain has gotten better. The walking is getting better. Pain: Pain Pain Location: Knee - Left OBJECTIVE MEASURES WITH LEVEL OF FUNCTION: TREATMENT: Therapeutic Exercise: 3: Supine SLR with 4# ankle weight M cuff 140 mmHg x30, x 15, x 15, x 15 with 30 second rest between sets and 1 minutes rest between exercise 6: SL heel raise BFR M cuff 196 mmHg x30 x15 x15 x15 7: Sidelying L hip abduction 4# M cuff 140 mmHg x30, x15, x15, x15 8: Standing squat M cuff 196 mmHg x30 x15 x15 x15 Skilled Intervention: Patient was educated in proper exercise technique and purpose for exercises. Provided written instruction for home exercise program to facilitate proper performance and compliance. Billing Therapeutic Exercise Treatment Minutes: 40 Skilled Treatment Time Minutes (timed and untimed codes): 40 Total Session Time (minutes): 40 Session Start Time : 0910 Session Stop Time : 0950 Skyler Foreman PT documented in this encounter [facility] 07-17-2024 Note HNO ID: [id number] Author: SKYLER FOREMAN PT Service: ? Author Type: Physical Therapist Type: Progress Notes Filed: 07/17/2024 10:46 Note Text: Episode Visit Count: 22 Therapist That Will Accept/Oversee The Plan Of Care: Skyler Foreman PT Start of Care Date: 04/17/24 Onset Date: 03/11/24 Patient Identified by Name and Date of : Yes REHABILITATION AND SPORTS THERAPY PHYSICAL THERAPY TREATMENT NOTE ASSESSMENT: Richard Head tolerated the session with expected muscle soreness. He demonstrated good tolerance to all therapeutic exercises. The patient will continue to benefit from ongoing skilled physical therapy to progress toward set goals. PLAN FOR NEXT VISIT: BFR SUBJECTIVE: Doing ok. Walking gets worse over the length of the day as he gets tired. Pain: Pain Pain Location: Knee - Left OBJECTIVE MEASURES WITH LEVEL OF FUNCTION: Improved gait with VC's TREATMENT: Therapeutic Exercise: 3: Supine SLR with 4# ankle weight M cuff 140 mmHg x30,15,15,15 with 30 second rest between sets and 1 minutes rest between exercise 4: Lateral heel taps 9 step M cuff 196 mmHg x 30, x15, x15, x15 5: SL LP 70# with M cuff 140 mmHg x30,15,15,15 with 30 second rest between sets and 1 minutes rest between exercise 6: SL heel raise BFR M cuff 196 mmHg x30 x15 x15 x15 Skilled Intervention: Patient was educated in proper exercise technique and purpose for exercises. Provided written instruction for home exercise program to facilitate proper performance and compliance. Gait Trainin: Discussed walking with increasing toe off during terminal stance. Focus on firing the gastoc/soleus complex to improve gait pattern. Pt practiced gait pattern x 15 feet x 6 passes (pt able to do and gait nearly normalizes after making this adjustment) Skilled Intervention: Facilitated proper gait cycle with the use of verbal and visual cues for correction of gait deviations identified in the objective section above. Billing Therapeutic Exercise Treatment Minutes: 36 Gait Training Treatment Minutes: 10 Skilled Treatment Time Minutes (timed and untimed codes): 46 Total Session Time (minutes): 46 Session Start Time : 958 Session Stop Time : 1044 Skylre Foreman PT [facility] 07-17-2024 History of Presen t illness Narrative Episode Visit Count: 22 Therapist That Will Accept/Oversee The Plan Of Care: Skyler Foreman PT Start of Care Date: 04/17/24 Onset Date: 03/11/24 Patient Identified by Name and Date of : Yes REHABILITATION AND SPORTS THERAPY PHYSICAL THERAPY TREATMENT NOTE ASSESSMENT: Richard Head tolerated the session with expected muscle soreness. He demonstrated good tolerance to all therapeutic exercises. The patient will continue to benefit from ongoing skilled physical therapy to progress toward set goals. PLAN FOR NEXT VISIT: BFR SUBJECTIVE: Doing ok. Walking gets worse over the length of the day as he gets tired. Pain: Pain Pain Location: Knee - Left OBJECTIVE MEASURES WITH LEVEL OF FUNCTION: Improved gait with VC's TREATMENT: Therapeutic Exercise: 3: Supine SLR with 4# ankle weight M cuff 140 mmHg x30,15,15,15 with 30 second rest between sets and 1 minutes rest between exercise 4: Lateral heel taps 9 step M cuff 196 mmHg x 30, x15, x15, x15 5: SL LP 70# with M cuff 140 mmHg x30,15,15,15 with 30 second rest between sets and 1 minutes rest between exercise 6: SL heel raise BFR M cuff 196 mmHg x30 x15 x15 x15 Skilled Intervention: Patient was educated in proper exercise technique and purpose for exercises. Provided written instruction for home exercise program to facilitate proper performance and compliance. Gait Trainin: Discussed walking with increasing toe off during terminal stance. Focus on firing the gastoc/soleus complex to improve gait pattern. Pt practiced gait pattern x 15 feet x 6 passes (pt able to do and gait nearly normalizes after making this adjustment) Skilled Intervention: Facilitated proper gait cycle with the use of verbal and visual cues for correction of gait deviations identified in the objective section above. Billing Therapeutic Exercise Treatment Minutes: 36 Gait Training Treatment Minutes: 10 Skilled Treatment Time Minutes (timed and untimed codes): 46 Total Session Time (minutes): 46 Session Start Time : 958 Session Stop Time : 1044 Skyler Foreman PT documented in this encounter [facility] 07-15-2024 Note HNO ID: [id number] Author: SKYLER FOREMAN PT Service: ? Author Type: Physical Therapist Type: Progress Notes Filed: 07/15/2024 15:06 Note Text: Episode Visit Count: 21 Therapist That Will Accept/Oversee The Plan Of Care: Skyler Foreman PT Start of Care Date: 04/17/24 Onset Date: 03/11/24 Patient Identified by Name and Date of : Yes REHABILITATION AND SPORTS THERAPY PHYSICAL THERAPY TREATMENT NOTE ASSESSMENT: Richard Head tolerated the session with fatigue and expected muscle soreness. He demonstrated improvements in endurance with exercise. The patient will continue to benefit from ongoing skilled physical therapy to progress toward set goals. PLAN FOR NEXT VISIT: BFR training SUBJECTIVE: Pt reports that he did a lot of shoveling and that his knee os painful from it, did not do his exercises becuase of this. Pain: Pain Pain Level: 4 Pain Location: Knee - Left Description: Aching Post Treatment Pain Post Treatment Pain Level: No Change Post Treatment Pain Location: Knee - Left OBJECTIVE MEASURES WITH LEVEL OF FUNCTION: Form observed throughout session. TREATMENT: Therapeutic Exercise: 1: Reaquisition with L cuff in standing 260 mmHg at 70% =182 mmHg; in supine 240 mmHg at 70% = 168 mmHg 2: Standing Squats with 10 # DB in each UE with L cuff 182 mmHg x30,15,15,15 with 30 second rest between sets and 1 minutes rest between exercise 3: Supine SLR with 3# ankle weight L cuff 168 mmHg x30,15,15,15 with 30 second rest between sets and 1 minutes rest between exercise 4: SL hip abduction with 3# ankle weight L cuff 168 mmHg x30,15,15,15 with 30 second rest between sets and 1 minutes rest between exercise 5: SL LP 50# with L cuff 168 mmHg x30,15,15,15 with 30 second rest between sets and 1 minutes rest between exercise 6: Step ups on 9 inch step wtih L cuff 182 mmHg x30,15,15,15 with 30 second rest between sets and 1 minutes rest between exercise Skilled Intervention: Patient was educated in proper exercise technique and purpose for exercises. Skilled judgment was used in selection of appropriate interventions. Correct performance of therapeutic exercises was facilitated with verbal and visual cuing. Billing Therapeutic Exercise Treatment Minutes: 54 Skilled Treatment Time Minutes (timed and untimed codes): 54 Total Session Time (minutes): 54 Session Start Time : 835 Session Stop Time : 929 Jenny Schmidt, [employer]IO PHOTOGRAPHER Skyler Foreman, PT [facility] 07-15-2024 History of Presen t illness Narrative Episode Visit Count: 21 Therapist That Will Accept/Oversee The Plan Of Care: Skyler Foreman PT Start of Care Date: 04/17/24 Onset Date: 03/11/24 Patient Identified by Name and Date of : Yes REHABILITATION AND SPORTS THERAPY PHYSICAL THERAPY TREATMENT NOTE ASSESSMENT: Richard Head tolerated the session with fatigue and expected muscle soreness. He demonstrated improvements in endurance with exercise. The patient will continue to benefit from ongoing skilled physical therapy to progress toward set goals. PLAN FOR NEXT VISIT: BFR training SUBJECTIVE: Pt reports that he did a lot of shoveling and that his knee os painful from it, did not do his exercises becuase of this. Pain: Pain Pain Level: 4 Pain Location: Knee - Left Description: Aching Post Treatment Pain Post Treatment Pain Level: No Change Post Treatment Pain Location: Knee - Left OBJECTIVE MEASURES WITH LEVEL OF FUNCTION: Form observed throughout session. TREATMENT: Therapeutic Exercise: 1: Reaquisition with L cuff in standing 260 mmHg at 70% =182 mmHg; in supine 240 mmHg at 70% = 168 mmHg 2: Standing Squats with 10 # DB in each UE with L cuff 182 mmHg x30,15,15,15 with 30 second rest between sets and 1 minutes rest between exercise 3: Supine SLR with 3# ankle weight L cuff 168 mmHg x30,15,15,15 with 30 second rest between sets and 1 minutes rest between exercise 4: SL hip abduction with 3# ankle weight L cuff 168 mmHg x30,15,15,15 with 30 second rest between sets and 1 minutes rest between exercise 5: SL LP 50# with L cuff 168 mmHg x30,15,15,15 with 30 second rest between sets and 1 minutes rest between exercise 6: Step ups on 9 inch step wtih L cuff 182 mmHg x30,15,15,15 with 30 second rest between sets and 1 minutes rest between exercise Skilled Intervention: Patient was educated in proper exercise technique and purpose for exercises. Skilled judgment was used in selection of appropriate interventions. Correct performance of therapeutic exercises was facilitated with verbal and visual cuing. Billing Therapeutic Exercise Treatment Minutes: 54 Skilled Treatment Time Minutes (timed and untimed codes): 54 Total Session Time (minutes): 54 Session Start Time : 835 Session Stop Time : 929 NATHEN Salcedo PT documented in this encounter [facility] 07-08-2024 Note HNO ID: [id number] Author: SKYLER FOREMAN PT Service: ? Author Type: Physical Therapist Type: Progress Notes Filed: 07/08/2024 16:30 Note Text: Episode Visit Count: 20 Therapist That Will Accept/Oversee The Plan Of Care: Skyler Foreman PT Start of Care Date: 04/17/24 Onset Date: 03/11/24 Patient Identified by Name and Date of : Yes REHABILITATION AND SPORTS THERAPY PHYSICAL THERAPY TREATMENT NOTE ASSESSMENT: Richard Cecelia Head tolerated the session with fatigue. He demonstrated good form with all therapeutic exercises. The patient will continue to benefit from ongoing skilled physical therapy to progress toward set goals. PLAN FOR NEXT VISIT: BFR training SUBJECTIVE: Feels that he has bone pain below the knee after working on the tree in his yard. Did work for multiple hours 3 days in a row. This has made the leg really sore Patient Goals: Return to work Functional Limitations: walking, working, stair negotiation Prior Level of Function: Independent without limitations Intake Information: Prescription present Previous Treatment: Surgery Pain: Pain Pain Location: Knee - Left OBJECTIVE MEASURES WITH LEVEL OF FUNCTION: TREATMENT: Therapeutic Exercise: 1: SL LP 50# BFR M cuff 140 mmHg x30, x15, x15, x15 2: Supine SLR L cuff 140 mmhg x30, x15, x15, x15 with 3# at ankle 3: Sidelying hip abd 140 mmHg M cuff x 30, x15, x15, x15 with 3# on ankle 4: Standing squats BFR M cuff 196 mmHg , x30, x15, x15, x15 holding 5# dumbbells (10 # total) (moved to 70# for the last 2 rounds of 15 reps) Skilled Intervention: Patient was educated in proper exercise technique and purpose for exercises. Provided written instruction for home exercise program to facilitate proper performance and compliance. Billing Therapeutic Exercise Treatment Minutes: 41 Skilled Treatment Time Minutes (timed and untimed codes): 41 Total Session Time (minutes): 41 Session Start Time : 1547 Session Stop Time : 1628 Skyler Foreman PT [facility] 07-08-2024 History of Presen t illness Narrative Episode Visit Count: 20 Therapist That Will Accept/Oversee The Plan Of Care: Skyler Foreman PT Start of Care Date: 04/17/24 Onset Date: 03/11/24 Patient Identified by Name and Date of : Yes REHABILITATION AND SPORTS THERAPY PHYSICAL THERAPY TREATMENT NOTE ASSESSMENT: Richard Cecelia Head tolerated the session with fatigue. He demonstrated good form with all therapeutic exercises. The patient will continue to benefit from ongoing skilled physical therapy to progress toward set goals. PLAN FOR NEXT VISIT: BFR training SUBJECTIVE: Feels that he has bone pain below the knee after working on the tree in his yard. Did work for multiple hours 3 days in a row. This has made the leg really sore Patient Goals: Return to work Functional Limitations: walking, working, stair negotiation Prior Level of Function: Independent without limitations Intake Information: Prescription present Previous Treatment: Surgery Pain: Pain Pain Location: Knee - Left OBJECTIVE MEASURES WITH LEVEL OF FUNCTION: TREATMENT: Therapeutic Exercise: 1: SL LP 50# BFR M cuff 140 mmHg x30, x15, x15, x15 2: Supine SLR L cuff 140 mmhg x30, x15, x15, x15 with 3# at ankle 3: Sidelying hip abd 140 mmHg M cuff x 30, x15, x15, x15 with 3# on ankle 4: Standing squats BFR M cuff 196 mmHg , x30, x15, x15, x15 holding 5# dumbbells (10 # total) (moved to 70# for the last 2 rounds of 15 reps) Skilled Intervention: Patient was educated in proper exercise technique and purpose for exercises. Provided written instruction for home exercise program to facilitate proper performance and compliance. Billing Therapeutic Exercise Treatment Minutes: 41 Skilled Treatment Time Minutes (timed and untimed codes): 41 Total Session Time (minutes): 41 Session Start Time : 1547 Session Stop Time : 1628 Skyler Foreman PT documented in this encounter [facility] 06-27-2024 Note HNO ID: [id number] Author: SKYLER FOREMAN PT Service: ? Author Type: Physical Therapist Type: Progress Notes Filed: 06/27/2024 10:11 Note Text: Episode Visit Count: 19 Therapist That Will Accept/Oversee The Plan Of Care: Skyler Foreman PT Start of Care Date: 04/17/24 Onset Date: 03/11/24 Patient Identified by Name and Date of : Yes REHABILITATION AND SPORTS THERAPY PHYSICAL THERAPY PROGRESS REPORT PLAN OF CARE UPDATE: Assessment: Richard Head demonstrates difficulty with walking, stair negotiation, and carrying and improvements in overall L knee ROM, ankle ROM, and LLE strength. The patient has progressed toward goals. Patient continues to present with impairments in ADL's, gait, independence in exercise, overall function, range of motion, and strength that interfere with walking, working, stair negotiation . Current prognosis is Good due to: current objective clinical presentation . The patient will benefit from continued skilled therapy services to meet the updated goals for this plan of care as noted below. Goals updated 06/27/24 Goals for Episode of Care: established 04/17/24 Gos[place] in home exercise program. - Met so far Perform squats, kneeling, and walking without pain. - Not met Increase ROM of L knee to 0-130 degrees of flexion for improved gait quality and stability with ADL's - Progressing, will continue Increased strength of LLE to 5/5 for return to work - Progressing, will continue Normal gait. - Progressing Reciprocal stair negotiation. - Not met Patient Goals: Return to work Time Frame for Goals and Treatment : 07/10/24 Patient Goals: Return to work Planned Interventions, Frequency, and Duration: 2x/week, 4 weeks Total Number of Visits Planned: 8 Patient to be seen for Therapeutic exercise (93917), Neuromuscular re-education (51775), Manual therapy (81110), Therapeutic activities (57358), Self-snf management (33309), Gait Training (94358), Patient/Family/Caregiver Education PLAN FOR NEXT VISIT: Continue with LLE training with BFR. Encourage pt to continue to walk as long as he can with good form. SUBJECTIVE: Still has a hard time with his gait. Pt reports limping when walking. He can maintain a higher quality of gait but just for a short period of time. Wants to continue with PT. His RTW date is 08/26/24 Patient Goals: Return to work Functional Limitations: walking, working, stair negotiation Prior Level of Function: Independent without limitations Intake Information: Prescription present Previous Treatment: Surgery Pain: Pain Pain Level: 4 Pain Location: Knee - Left (falcon specifically) PROMIS Scales 06/16/2024 06/12/2024 05/25/2024 Higher is Better Phys Func - T Score 36 (moderate dysfunction) 30 (moderate dysfunction) Phys Func - Percentile 8 2 Self-Eff Symptom - T Score 38 (Low) Self-Eff Symptom - Percentile 12 T-scores: mean of general population = 50. 5 points is clinically meaningfully difference Percentiles provide an indication of how the patient's score ranks in relation to the general population. Higher percentile rankings indicate better function/quality of life. 50th percentile is the average of the general population and indicates half of respondents had a worse score. OBJECTIVE MEASURES WITH LEVEL OF FUNCTION: LE AROM R Knee Flexion: 127 Degrees L Knee Extension: 0 Degrees L Knee Flexion: 122 Degrees LE Strength R LE Strength: Grossly 5/5 L Hip Flexion (L2): 5/5 L Hip ABduction: 4/5 L Knee Extension (L3): 4/5 L Knee Flexion: 4+/5 L Ankle Dorsiflexion (L4): 4+/5 Gait Weight Bearing Status: WBAT Gait: Modified Independent Gait Distance (feet): 20 Gait Device: Cane Gait Deviations: Left Lower Extremity Gait Observation: Decreased heel strike at initial contact of LLE. Pt tends to perform L sidebending of the spine during LLE stance phase. Stairs: Modified Independent Stairs: HR used and pt negotiates stairs 1 step at a time L ankle DF slightly more limited than R ankle DF TREATMENT: Therapeutic Exercise: 1: All objective measures taken this session 2: Supine SLR L cuff 140 mmhg x30, x15, x15, x15 with 2# at ankle 3: Sidelying hip abd 140 mmHg M cuff x 30, x15, x15, x15 with 2# on ankle 4: Standing squats BFR M cuff 196 mmHg , x30, x15, x15, x15 holding 5# dumbbells (10 # total) Skilled Intervention: Patient was educated in proper exercise technique and purpose for exercises. Skilled judgment was used in selection of appropriate interventions. Provided written instruction for home exercise program to facilitate proper performance and compliance. Correct performance of therapeutic exercises was facilitated with verbal and visual cuing. Billing Therapeutic Exercise Treatment Minutes: 40 Skilled Treatment Time Minutes (timed and untimed codes): 40 Total Session Time (minutes): 40 Session Start Time : 928 Session Stop Time : 1008 Skyler Foreman PT [facility] 06-27-2024 History of Presen t illness Narrative Images from the original note were not included. Episode Visit Count: 19 Therapist That Will Accept/Oversee The Plan Of Care: Skyler Foreman PT Start of Care Date: 04/17/24 Onset Date: 03/11/24 Patient Identified by Name and Date of : Yes REHABILITATION AND SPORTS THERAPY PHYSICAL THERAPY PROGRESS REPORT PLAN OF CARE UPDATE: Assessment: Richard Cecelia Head demonstrates difficulty with walking, stair negotiation, and carrying and improvements in overall L knee ROM, ankle ROM, and LLE strength. The patient has progressed toward goals. Patient continues to present with impairments in ADL's, gait, independence in exercise, overall function, range of motion, and strength that interfere with walking, working, stair negotiation . Current prognosis is Good due to: current objective clinical presentation . The patient will benefit from continued skilled therapy services to meet the updated goals for this plan of care as noted below. Goals updated 06/27/24 Goals for Episode of Care: established 04/17/24 Gos[place] in home exercise program. - Met so far Perform squats, kneeling, and walking without pain. - Not met Increase ROM of L knee to 0-130 degrees of flexion for improved gait quality and stability with ADL's - Progressing, will continue Increased strength of LLE to 5/5 for return to work - Progressing, will continue Normal gait. - Progressing Reciprocal stair negotiation. - Not met Patient Goals: Return to work Time Frame for Goals and Treatment : 07/10/24 Patient Goals: Return to work Planned Interventions, Frequency, and Duration: 2x/week, 4 weeks Total Number of Visits Planned: 8 Patient to be seen for Therapeutic exercise (50527), Neuromuscular re-education (71983), Manual therapy (58123), Therapeutic activities (33329), Self-snf management (72002), Gait Training (58604), Patient/Family/Caregiver Education PLAN FOR NEXT VISIT: Continue with LLE training with BFR. Encourage pt to continue to walk as long as he can with good form. SUBJECTIVE: Still has a hard time with his gait. Pt reports limping when walking. He can maintain a higher quality of gait but just for a short period of time. Wants to continue with PT. His RTW date is 08/26/24 Patient Goals: Return to work Functional Limitations: walking, working, stair negotiation Prior Level of Function: Independent without limitations Intake Information: Prescription present Previous Treatment: Surgery Pain: Pain Pain Level: 4 Pain Location: Knee - Left (falcon specifically) PROMIS Scales 06/16/2024 06/12/2024 05/25/2024 Higher is Better Phys Func - T Score 36 (moderate dysfunction) 30 (moderate dysfunction) Phys Func - Percentile 8 2 Self-Eff Symptom - T Score 38 (Low) Self-Eff Symptom - Percentile 12 T-scores: mean of general population = 50. 5 points is clinically meaningfully difference Percentiles provide an indication of how the patient's score ranks in relation to the general population. Higher percentile rankings indicate better function/quality of life. 50th percentile is the average of the general population and indicates half of respondents had a worse score. OBJECTIVE MEASURES WITH LEVEL OF FUNCTION: LE AROM R Knee Flexion: 127 Degrees L Knee Extension: 0 Degrees L Knee Flexion: 122 Degrees LE Strength R LE Strength: Grossly 5/5 L Hip Flexion (L2): 5/5 L Hip ABduction: 4/5 L Knee Extension (L3): 4/5 L Knee Flexion: 4+/5 L Ankle Dorsiflexion (L4): 4+/5 Gait Weight Bearing Status: WBAT Gait: Modified Independent Gait Distance (feet): 20 Gait Device: Cane Gait Deviations: Left Lower Extremity Gait Observation: Decreased heel strike at initial contact of LLE. Pt tends to perform L sidebending of the spine during LLE stance phase. Stairs: Modified Independent Stairs: HR used and pt negotiates stairs 1 step at a time L ankle DF slightly more limited than R ankle DF TREATMENT: Therapeutic Exercise: 1: All objective measures taken this session 2: Supine SLR L cuff 140 mmhg x30, x15, x15, x15 with 2# at ankle 3: Sidelying hip abd 140 mmHg M cuff x 30, x15, x15, x15 with 2# on ankle 4: Standing squats BFR M cuff 196 mmHg , x30, x15, x15, x15 holding 5# dumbbells (10 # total) Skilled Intervention: Patient was educated in proper exercise technique and purpose for exercises. Skilled judgment was used in selection of appropriate interventions. Provided written instruction for home exercise program to facilitate proper performance and compliance. Correct performance of therapeutic exercises was facilitated with verbal and visual cuing. Billing Therapeutic Exercise Treatment Minutes: 40 Skilled Treatment Time Minutes (timed and untimed codes): 40 Total Session Time (minutes): 40 Session Start Time : 928 Session Stop Time : 1008 Skyler Foreman PT documented in this encounter [facility] 06-24-2024 Note HNO ID: [id number] Author: SKYLER FOREMAN PT Service: ? Author Type: Physical Therapist Type: Progress Notes Filed: 06/24/2024 10:15 Note Text: Episode Visit Count: 18 Therapist That Will Accept/Oversee The Plan Of Care: Skyler Foreman PT Start of Care Date: 04/17/24 Onset Date: 03/11/24 Patient Identified by Name and Date of : Yes REHABILITATION AND SPORTS THERAPY PHYSICAL THERAPY TREATMENT NOTE ASSESSMENT: Richard Head tolerated the session with fatigue and expected muscle soreness. He demonstrated improvements in increased tolerance to load with BFR training. The patient will continue to benefit from ongoing skilled physical therapy to progress toward set goals. PLAN FOR NEXT VISIT: PN. BFR training SUBJECTIVE: May push work out for another 2 months due to his current physical function. Still limping when not using an AD. Pain: Pain Pain Location: Knee - Left OBJECTIVE MEASURES WITH LEVEL OF FUNCTION: TREATMENT: Therapeutic Exercise: 2: Supine SLR L cuff 140 mmhg x30, x15, x15, x15 with 2# at ankle 3: Sidelying hip abd 140 mmHg M cuff x 30, x15, x15, x15 with 2# on ankle 4: Standing squats BFR M cuff 196 mmHg , x30, x15, x15, x15 holding 5# dumbbells (10 # total) 5: PuTB vended for sidetsepping and clamshell exercises 6: 9 F step-up holding 5# dumbbell M BFR cuff 196 mmHg x30, x15, x15, x15 Skilled Intervention: Patient was educated in proper exercise technique and purpose for exercises. Billing Therapeutic Exercise Treatment Minutes: 44 Skilled Treatment Time Minutes (timed and untimed codes): 44 Total Session Time (minutes): 44 Session Start Time : 925 Session Stop Time : 1009 Skyler Foreman PT [facility] 06-24-2024 History of Presen t illness Narrative Episode Visit Count: 18 Therapist That Will Accept/Oversee The Plan Of Care: Skyler Foreman PT Start of Care Date: 04/17/24 Onset Date: 03/11/24 Patient Identified by Name and Date of : Yes REHABILITATION AND SPORTS THERAPY PHYSICAL THERAPY TREATMENT NOTE ASSESSMENT: Richard Head tolerated the session with fatigue and expected muscle soreness. He demonstrated improvements in increased tolerance to load with BFR training. The patient will continue to benefit from ongoing skilled physical therapy to progress toward set goals. PLAN FOR NEXT VISIT: PN. BFR training SUBJECTIVE: May push work out for another 2 months due to his current physical function. Still limping when not using an AD. Pain: Pain Pain Location: Knee - Left OBJECTIVE MEASURES WITH LEVEL OF FUNCTION: TREATMENT: Therapeutic Exercise: 2: Supine SLR L cuff 140 mmhg x30, x15, x15, x15 with 2# at ankle 3: Sidelying hip abd 140 mmHg M cuff x 30, x15, x15, x15 with 2# on ankle 4: Standing squats BFR M cuff 196 mmHg , x30, x15, x15, x15 holding 5# dumbbells (10 # total) 5: PuTB vended for sidetsepping and clamshell exercises 6: 9 F step-up holding 5# dumbbell M BFR cuff 196 mmHg x30, x15, x15, x15 Skilled Intervention: Patient was educated in proper exercise technique and purpose for exercises. Billing Therapeutic Exercise Treatment Minutes: 44 Skilled Treatment Time Minutes (timed and untimed codes): 44 Total Session Time (minutes): 44 Session Start Time : 925 Session Stop Time : 1009 Skyler Foreman PT documented in this encounter [facility] 06-23-2024 History of Presen t illness Narrative Images from the original note were not included. ORTHOPAEDIC SURGERY OFFICE NOTE: SURGERY DATE: 1) 03/12/2024 SURGERY: 1) Insertion of a Left Intramedullary Tibial Nail for a Segmental Left Tibial Shaft Fracture CHIEF COMPLAINT: Routine Post-Operative Follow-Up HISTORY OF PRESENT ILLNESS: Richard Head is a 58 year old male who presents for routine post-operative follow-up from the above listed operation (see Surgery above for full details). At today's appointment, the patient reports doing relatively well. The patient endorses controlled pain to the left lower leg. The patient is ambulatory with gait aids. The patient denies fevers and chills. The patient has no additional orthopaedic traumatic complaints at this time. Reviewed nursing note and current pain scale. History reviewed. No pertinent past medical history. History reviewed. No pertinent surgical history. History reviewed. No pertinent family history. Social History Tobacco Use Smoking status: Never Smokeless tobacco: Never Substance Use Topics Alcohol use: Never Drug use: Never MEDICATIONS: Current Outpatient Medications Medication Sig cholecalciferol, vitamin D3, (VITAMIN D3 ORAL) Take 1 tablet by mouth once daily. MULTIVITAMIN ORAL Take 1 tablet by mouth once daily. aspirin, enteric coated (ASPIRIN, ENTERIC COATED) 81 mg EC tablet Take 1 tablet by mouth two times a day for 14 days. ONCE TWO TIMES A DAY DOSING COMPLETED, THEN OKAY TO RESUME DAILY HOME DOSE aspirin, enteric coated (ASPIRIN, ENTERIC COATED) 81 mg EC tablet Take 81 mg by mouth once daily. naproxen (NAPROSYN) 250 mg tablet Take 500 mg by mouth once daily as needed (pain). Patient should start on March 20, 2024. docosahexaenoic acid/epa (FISH OIL ORAL) Take 2 tablets by mouth once daily. No current facility-administered medications for this visit. ALLERGIES: ALLERGIES No Known Allergies PHYSICAL EXAMINATION: Resp 20 Ht 5' 8 (1.73m) Wt 209 lb (94.8kg) BMI 31.79 kg/(m^2). General Appearance: No acute distress Skin: See Extremity exam below for full details Left Lower Extremity: Healed surgical incisions to the left lower leg. There is no shannan-incisional erythema nor drainage. Compartments of the thigh and leg are soft and compressible. The patient has active knee flexion, knee extension, ankle dorsiflexion, ankle plantarflexion and extensor hallucis longus motor function. Sensation intact to light touch in the sural, saphenous, superficial peroneal, deep peroneal and tibial nerve distributions. Brisk capillary refill to the digits of the foot. IMAGES: Recent Results (from the past 36 hour(s)) XR TIBIA FIBULA 2V AP/LAT LEFT Narrative 2-view left tibia/fibula radiographs demonstrate maintained length, alignment and rotation of the segmental tibia fracture with intact orthopaedic implants. ASSESSMENT AND PLAN: 1. Closed complex fracture of left tibia with routine healing, subsequent encounter - ICD9: V54.16, ICD10: S82.292D -2-view left tibia/fibula x-rays ordered, obtained and independently interpreted (see image interpretation above for full details) -Weight-bearing as tolerated with the left lower extremity with ambulation assistance devices as needed -Pain control with NSAIDs and acetaminophen as needed -Ice and elevation of the left lower extremity for pain control and swelling reduction -Physical therapy/home exercises for continued rehabilitation -The patient will be extended off-work for an additional 2 months -The patient will follow-up in 6 months or sooner if needed OARRS reviewed All patient and family questions and concerns were answered and addressed The above reflects an independent exam and review. The patient was personally seen and examined. Part of the HPI, ROS, exam and impression may have been copied from personal previous clinical notes and remains pertinent. Current changes have been made and documented today. Other parts or data were deleted if not relevant for today. Plan as outlined. Carisa Burch MD Orthopaedic Trauma Surgery 06/23/2024 11:16 AM documented in this encounter [facility] 06-23-2024 Note HNO ID: [id number] Author: CARISA BURCH MD Service: ? Author Type: Physician Type: Progress Notes Filed: 06/23/2024 11:18 Note Text: ORTHOPAEDIC SURGERY OFFICE NOTE: SURGERY DATE: 1) 03/12/2024 SURGERY: 1) Insertion of a Left Intramedullary Tibial Nail for a Segmental Left Tibial Shaft Fracture CHIEF COMPLAINT: Routine Post-Operative Follow-Up HISTORY OF PRESENT ILLNESS: Richard Head is a 58 year old male who presents for routine post-operative follow-up from the above listed operation (see Surgery above for full details). At today's appointment, the patient reports doing relatively well. The patient endorses controlled pain to the left lower leg. The patient is ambulatory with gait aids. The patient denies fevers and chills. The patient has no additional orthopaedic traumatic complaints at this time. Reviewed nursing note and current pain scale. History reviewed. No pertinent past medical history. History reviewed. No pertinent surgical history. History reviewed. No pertinent family history. Social History Tobacco Use Smoking status: Never Smokeless tobacco: Never Substance Use Topics Alcohol use: Never Drug use: Never MEDICATIONS: Current Outpatient Medications Medication Sig cholecalciferol, vitamin D3, (VITAMIN D3 ORAL) Take 1 tablet by mouth once daily. MULTIVITAMIN ORAL Take 1 tablet by mouth once daily. aspirin, enteric coated (ASPIRIN, ENTERIC COATED) 81 mg EC tablet Take 1 tablet by mouth two times a day for 14 days. ONCE TWO TIMES A DAY DOSING COMPLETED, THEN OKAY TO RESUME DAILY HOME DOSE aspirin, enteric coated (ASPIRIN, ENTERIC COATED) 81 mg EC tablet Take 81 mg by mouth once daily. naproxen (NAPROSYN) 250 mg tablet Take 500 mg by mouth once daily as needed (pain). Patient should start on March 20, 2024. docosahexaenoic acid/epa (FISH OIL ORAL) Take 2 tablets by mouth once daily. No current facility-administered medications for this visit. ALLERGIES: ALLERGIES No Known Allergies PHYSICAL EXAMINATION: Resp 20 Ht 5' 8 (1.73m) Wt 209 lb (94.8kg) BMI 31.79 kg/(m2). General Appearance: No acute distress Skin: See Extremity exam below for full details Left Lower Extremity: Healed surgical incisions to the left lower leg. There is no shannan-incisional erythema nor drainage. Compartments of the thigh and leg are soft and compressible. The patient has active knee flexion, knee extension, ankle dorsiflexion, ankle plantarflexion and extensor hallucis longus motor function. Sensation intact to light touch in the sural, saphenous, superficial peroneal, deep peroneal and tibial nerve distributions. Brisk capillary refill to the digits of the foot. IMAGES: Recent Results (from the past 36 hour(s)) XR TIBIA FIBULA 2V AP/LAT LEFT Narrative 2-view left tibia/fibula radiographs demonstrate maintained length, alignment and rotation of the segmental tibia fracture with intact orthopaedic implants. ASSESSMENT AND PLAN: 1. Closed complex fracture of left tibia with routine healing, subsequent encounter - ICD9: V54.16, ICD10: S82.292D -2-view left tibia/fibula x-rays ordered, obtained and independently interpreted (see image interpretation above for full details) -Weight-bearing as tolerated with the left lower extremity with ambulation assistance devices as needed -Pain control with NSAIDs and acetaminophen as needed -Ice and elevation of the left lower extremity for pain control and swelling reduction -Physical therapy/home exercises for continued rehabilitation -The patient will be extended off-work for an additional 2 months -The patient will follow-up in 6 months or sooner if needed OARRS reviewed All patient and family questions and concerns were answered and addressed The above reflects an independent exam and review. The patient was personally seen and examined. Part of the HPI, ROS, exam and impression may have been copied from personal previous clinical notes and remains pertinent. Current changes have been made and documented today. Other parts or data were deleted if not relevant for today. Plan as outlined. Carisa Burch MD Orthopaedic Trauma Surgery 06/23/2024 11:16 AM [facility] 06-20-2024 Note HNO ID: [id number] Author: SKYLER FOREMAN PT Service: ? Author Type: Physical Therapist Type: Progress Notes Filed: 06/20/2024 11:03 Note Text: Episode Visit Count: 17 Therapist That Will Accept/Oversee The Plan Of Care: Skyler Foreman PT Start of Care Date: 04/17/24 Onset Date: 03/11/24 Patient Identified by Name and Date of : Yes REHABILITATION AND SPORTS THERAPY PHYSICAL THERAPY TREATMENT NOTE ASSESSMENT: Richard Head tolerated the session with fatigue. He demonstrated increased lumbar flexion during squats corrected with VC's. The patient will continue to benefit from ongoing skilled physical therapy to progress toward set goals. PLAN FOR NEXT VISIT: Gait training and BFR SUBJECTIVE: Still not happy with his gait. Can maybe walk straight for a little while but then limps after. Gets knee pain that is sharp at times and pain along the sides of the falcon. Pain: Pain Pain Level: (Not rated) Pain Location: Knee - Left OBJECTIVE MEASURES WITH LEVEL OF FUNCTION: Form observed throughout TREATMENT: Therapeutic Exercise: 1: Soleus stretch L foot on wall x 30 sec 2: Supine SLR L cuff 140 mmhg x30, x15, x15, x15 with 1# at ankle 3: Sidelying hip abd 140 mmHg M cuff x 30, x15, x15, x15 with 1# on ankle 4: Standing squats BFR M cuff 196 mmHg , x30, x15, x15, x15 holding 3# dumbbells (6 # total) 8: SciFit x 5 min (1:1 time spent and subjective taken) Skilled Intervention: Patient was educated in proper exercise technique and purpose for exercises. Manual Therapy: 1: STM over L AT and soleus Skilled Intervention: Manual skills to improve joint mobility, ROM, and decrease pain. Utilized anatomy knowledge of the therapist, and assessment of patient's response to intervention. Billing Therapeutic Exercise Treatment Minutes: 39 Manual TherapyTreatment Minutes: 6 Skilled Treatment Time Minutes (timed and untimed codes): 45 Total Session Time (minutes): 45 Session Start Time : 1016 Session Stop Time : 1101 Skyler Foreman PT [facility] 06-20-2024 History of Presen t illness Narrative Episode Visit Count: 17 Therapist That Will Accept/Oversee The Plan Of Care: Skyler Foreman PT Start of Care Date: 04/17/24 Onset Date: 03/11/24 Patient Identified by Name and Date of : Yes REHABILITATION AND SPORTS THERAPY PHYSICAL THERAPY TREATMENT NOTE ASSESSMENT: Richard Cecelia Head tolerated the session with fatigue. He demonstrated increased lumbar flexion during squats corrected with VC's. The patient will continue to benefit from ongoing skilled physical therapy to progress toward set goals. PLAN FOR NEXT VISIT: Gait training and BFR SUBJECTIVE: Still not happy with his gait. Can maybe walk straight for a little while but then limps after. Gets knee pain that is sharp at times and pain along the sides of the falcon. Pain: Pain Pain Level: (Not rated) Pain Location: Knee - Left OBJECTIVE MEASURES WITH LEVEL OF FUNCTION: Form observed throughout TREATMENT: Therapeutic Exercise: 1: Soleus stretch L foot on wall x 30 sec 2: Supine SLR L cuff 140 mmhg x30, x15, x15, x15 with 1# at ankle 3: Sidelying hip abd 140 mmHg M cuff x 30, x15, x15, x15 with 1# on ankle 4: Standing squats BFR M cuff 196 mmHg , x30, x15, x15, x15 holding 3# dumbbells (6 # total) 8: SciFit x 5 min (1:1 time spent and subjective taken) Skilled Intervention: Patient was educated in proper exercise technique and purpose for exercises. Manual Therapy: 1: STM over L AT and soleus Skilled Intervention: Manual skills to improve joint mobility, ROM, and decrease pain. Utilized anatomy knowledge of the therapist, and assessment of patient's response to intervention. Billing Therapeutic Exercise Treatment Minutes: 39 Manual TherapyTreatment Minutes: 6 Skilled Treatment Time Minutes (timed and untimed codes): 45 Total Session Time (minutes): 45 Session Start Time : 1016 Session Stop Time : 1101 Skyler Foreman PT documented in this encounter [facility] 06-17-2024 History of Presen t illness Narrative Program_ID:[id number] Access Code: [email or web address] URL: [email or web address] Date: 06-17-2024 Prepared By: Skyler Foreman Program Notes Exercises - Active Straight Leg Raise with Quad Set - 1 x daily - 7 x weekly - 4 sets - 20 reps - Standing Ankle Dorsiflexion Stretch on Chair - 1 x daily - 7 x weekly - 4 sets - 10 reps - Sidelying Hip Abduction - 1 x daily - 7 x weekly - 4 sets - 20 reps - Clamshell with Resistance - 1 x daily - 7 x weekly - 4 sets - 12 reps - Squat with Chair Touch - 1 x daily - 7 x weekly - 4 sets - 20 reps - Step Up - 1 x daily - 7 x weekly - 4 sets - 20 reps Episode Visit Count: 16 Therapist That Will Accept/Oversee The Plan Of Care: Skyler Foreman PT Start of Care Date: 04/17/24 Onset Date: 03/11/24 Patient Identified by Name and Date of : Yes REHABILITATION AND SPORTS THERAPY PHYSICAL THERAPY TREATMENT NOTE ASSESSMENT: Richard Head tolerated the session with fatigue and expected muscle soreness. He demonstrated good tolerance to all therapeutic exercises. The patient will continue to benefit from ongoing skilled physical therapy to progress toward set goals. PLAN FOR NEXT VISIT: BFR SUBJECTIVE: Still having difficulty with walking for longer periods. He will start to limp when walking longer. Using the cane which helps. Pain: Pain Pain Location: Knee - Left OBJECTIVE MEASURES WITH LEVEL OF FUNCTION: Gait using SPC is WNL TREATMENT: Therapeutic Exercise: 2: Supine SLR L cuff 140 mmhg x30, x15, x15, x15 3: Sidelying hip abd 140 mmHg M cuff x 30, x15, x15, x15 4: Standing squats BFR M cuff 196 mmHg , x30, x15, x15, x15 5: Standing F step-up 9 step x30, x15, x15, x15 6: Resisted sidestepping GTB to fatigue each direction x 1 7: *Vended BTB for ankles and knees for the HEP Skilled Intervention: Patient was educated in proper exercise technique and purpose for exercises. Provided written instruction for home exercise program to facilitate proper performance and compliance. Correct performance of therapeutic exercises was facilitated with verbal and visual cuing. Billing Therapeutic Exercise Treatment Minutes: 46 Skilled Treatment Time Minutes (timed and untimed codes): 46 Total Session Time (minutes): 46 Session Start Time : 927 Session Stop Time : 1013 Skyler Foreman PT documented in this encounter [facility] 06-17-2024 Note HNO ID: [id number] Author: SKYLER FOREMAN PT Service: ? Author Type: Physical Therapist Type: Progress Notes Filed: 06/17/2024 11:39 Note Text: Episode Visit Count: 16 Therapist That Will Accept/Oversee The Plan Of Care: Skyler Foreman PT Start of Care Date: 04/17/24 Onset Date: 03/11/24 Patient Identified by Name and Date of : Yes REHABILITATION AND SPORTS THERAPY PHYSICAL THERAPY TREATMENT NOTE ASSESSMENT: Richard Head tolerated the session with fatigue and expected muscle soreness. He demonstrated good tolerance to all therapeutic exercises. The patient will continue to benefit from ongoing skilled physical therapy to progress toward set goals. PLAN FOR NEXT VISIT: BFR SUBJECTIVE: Still having difficulty with walking for longer periods. He will start to limp when walking longer. Using the cane which helps. Pain: Pain Pain Location: Knee - Left OBJECTIVE MEASURES WITH LEVEL OF FUNCTION: Gait using SPC is WNL TREATMENT: Therapeutic Exercise: 2: Supine SLR L cuff 140 mmhg x30, x15, x15, x15 3: Sidelying hip abd 140 mmHg M cuff x 30, x15, x15, x15 4: Standing squats BFR M cuff 196 mmHg , x30, x15, x15, x15 5: Standing F step-up 9 step x30, x15, x15, x15 6: Resisted sidestepping GTB to fatigue each direction x 1 7: *Vended BTB for ankles and knees for the HEP Skilled Intervention: Patient was educated in proper exercise technique and purpose for exercises. Provided written instruction for home exercise program to facilitate proper performance and compliance. Correct performance of therapeutic exercises was facilitated with verbal and visual cuing. Billing Therapeutic Exercise Treatment Minutes: 46 Skilled Treatment Time Minutes (timed and untimed codes): 46 Total Session Time (minutes): 46 Session Start Time : 927 Session Stop Time : 1013 Skyler Foreman PT [facility] 06-13-2024 Note HNO ID: [id number] Author: SKYLER FOREMAN PT Service: ? Author Type: Physical Therapist Type: Progress Notes Filed: 06/13/2024 11:47 Note Text: Episode Visit Count: 15 Therapist That Will Accept/Oversee The Plan Of Care: Skyler Foreman PT Start of Care Date: 04/17/24 Onset Date: 03/11/24 Patient Identified by Name and Date of : Yes REHABILITATION AND SPORTS THERAPY PHYSICAL THERAPY TREATMENT NOTE ASSESSMENT: Richard Cecelia Head tolerated the session with fatigue and expected muscle soreness. He demonstrated good form with all therapeutic exercises. The patient will continue to benefit from ongoing skilled physical therapy to progress toward set goals. PLAN FOR NEXT VISIT: BFR strengthening. Hip abductor strengthening. Practice proper gait without AD. SUBJECTIVE: Doing alright today. The LLE can feel stronger with certain exercises now compared to the good leg. Pain: Pain Pain Level: 0 Pain Location: Knee - Left OBJECTIVE MEASURES WITH LEVEL OF FUNCTION: TREATMENT: Therapeutic Exercise: 2: Supine SLR L cuff 140 mmhg x30, x15, x15, x15 3: Sidelying L hip abduction BFR M cuff 140 mmHg x30, x15, x15, x15 4: Standing squats BFR M cuff 196 mmHg , x30, x15, x15, x15 5: Standing F step-up 8 step x30, x15, x15, x15 6: SL heel raise 196 mmhg M cuff BFR, x30, x15, x15, x15 Skilled Intervention: Patient was educated in proper exercise technique and purpose for exercises. Provided written instruction for home exercise program to facilitate proper performance and compliance. Correct performance of therapeutic exercises was facilitated with verbal and visual cuing. Billing Therapeutic Exercise Treatment Minutes: 46 Skilled Treatment Time Minutes (timed and untimed codes): 46 Total Session Time (minutes): 46 Session Start Time : 1057 Session Stop Time : 1143 Skyler Foreman PT [facility] 06-13-2024 History of Presen t illness Narrative Episode Visit Count: 15 Therapist That Will Accept/Oversee The Plan Of Care: Skyler Foreman PT Start of Care Date: 04/17/24 Onset Date: 03/11/24 Patient Identified by Name and Date of : Yes REHABILITATION AND SPORTS THERAPY PHYSICAL THERAPY TREATMENT NOTE ASSESSMENT: Richard Head tolerated the session with fatigue and expected muscle soreness. He demonstrated good form with all therapeutic exercises. The patient will continue to benefit from ongoing skilled physical therapy to progress toward set goals. PLAN FOR NEXT VISIT: BFR strengthening. Hip abductor strengthening. Practice proper gait without AD. SUBJECTIVE: Doing alright today. The LLE can feel stronger with certain exercises now compared to the good leg. Pain: Pain Pain Level: 0 Pain Location: Knee - Left OBJECTIVE MEASURES WITH LEVEL OF FUNCTION: TREATMENT: Therapeutic Exercise: 2: Supine SLR L cuff 140 mmhg x30, x15, x15, x15 3: Sidelying L hip abduction BFR M cuff 140 mmHg x30, x15, x15, x15 4: Standing squats BFR M cuff 196 mmHg , x30, x15, x15, x15 5: Standing F step-up 8 step x30, x15, x15, x15 6: SL heel raise 196 mmhg M cuff BFR, x30, x15, x15, x15 Skilled Intervention: Patient was educated in proper exercise technique and purpose for exercises. Provided written instruction for home exercise program to facilitate proper performance and compliance. Correct performance of therapeutic exercises was facilitated with verbal and visual cuing. Billing Therapeutic Exercise Treatment Minutes: 46 Skilled Treatment Time Minutes (timed and untimed codes): 46 Total Session Time (minutes): 46 Session Start Time : 1057 Session Stop Time : 1143 Skyler Foreman PT documented in this encounter [facility] 06-10-2024 Note HNO ID: [id number] Author: SKYLER FOREMAN PT Service: ? Author Type: Physical Therapist Type: Progress Notes Filed: 06/10/2024 10:21 Note Text: Episode Visit Count: 14 Therapist That Will Accept/Oversee The Plan Of Care: Skyler Foreman PT Start of Care Date: 04/17/24 Onset Date: 03/11/24 Patient Identified by Name and Date of : Yes REHABILITATION AND SPORTS THERAPY PHYSICAL THERAPY TREATMENT NOTE ASSESSMENT: Richard Head tolerated the session with expected muscle soreness. He demonstrated good form with all therapeutic exercises. The patient will continue to benefit from ongoing skilled physical therapy to progress toward set goals. PLAN FOR NEXT VISIT: Continue with BFR strengthening SUBJECTIVE: Doing alright. Wondering about getting back to work in a few weeks. Wondering if he will be ready for work. Pain: Pain Pain Level: 0 Pain Location: Knee - Left OBJECTIVE MEASURES WITH LEVEL OF FUNCTION: LE AROM R Knee Flexion: 131 Degrees L Knee Flexion: 122 Degrees TREATMENT: Therapeutic Exercise: 2: Supine SLR L cuff 140 mmhg x30, x15, x15, x15 3: Standing mini Squats 196 mmhg M cuff x 30, x 15, x 15, x15 4: Standing 6 F step up 196 mmHg M cuff x30 and 8 step x15 x15 x15 5: Knee flexion stretch on step x5 holding 15 sec each 6: AT stretch standing 2 x 30 sec 7: Resisted side-stepping GTB x 1 to fatigue Skilled Intervention: Patient was educated in proper exercise technique and purpose for exercises. Provided written instruction for home exercise program to facilitate proper performance and compliance. Correct performance of therapeutic exercises was facilitated with verbal and visual cuing. Gait Trainin: Vc's for pt to increase LLE heel strike and glute activation during mid-stance and terminal stance. Pt practiced walking in parallel bars and was encuraged to work on this at home Skilled Intervention: Patient was provided supervision during pre-gait/gait training to prevent falls and insure safety. Billing Therapeutic Exercise Treatment Minutes: 44 Gait Training Treatment Minutes: 4 Skilled Treatment Time Minutes (timed and untimed codes): 48 Total Session Time (minutes): 48 Session Start Time : 930 Session Stop Time : 1018 Skyler Foreman PT [facility] 06-10-2024 History of Presen t illness Narrative Episode Visit Count: 14 Therapist That Will Accept/Oversee The Plan Of Care: Skyler Foreman PT Start of Care Date: 04/17/24 Onset Date: 03/11/24 Patient Identified by Name and Date of : Yes REHABILITATION AND SPORTS THERAPY PHYSICAL THERAPY TREATMENT NOTE ASSESSMENT: Richard Head tolerated the session with expected muscle soreness. He demonstrated good form with all therapeutic exercises. The patient will continue to benefit from ongoing skilled physical therapy to progress toward set goals. PLAN FOR NEXT VISIT: Continue with BFR strengthening SUBJECTIVE: Doing alright. Wondering about getting back to work in a few weeks. Wondering if he will be ready for work. Pain: Pain Pain Level: 0 Pain Location: Knee - Left OBJECTIVE MEASURES WITH LEVEL OF FUNCTION: LE AROM R Knee Flexion: 131 Degrees L Knee Flexion: 122 Degrees TREATMENT: Therapeutic Exercise: 2: Supine SLR L cuff 140 mmhg x30, x15, x15, x15 3: Standing mini Squats 196 mmhg M cuff x 30, x 15, x 15, x15 4: Standing 6 F step up 196 mmHg M cuff x30 and 8 step x15 x15 x15 5: Knee flexion stretch on step x5 holding 15 sec each 6: AT stretch standing 2 x 30 sec 7: Resisted side-stepping GTB x 1 to fatigue Skilled Intervention: Patient was educated in proper exercise technique and purpose for exercises. Provided written instruction for home exercise program to facilitate proper performance and compliance. Correct performance of therapeutic exercises was facilitated with verbal and visual cuing. Gait Trainin: Vc's for pt to increase LLE heel strike and glute activation during mid-stance and terminal stance. Pt practiced walking in parallel bars and was encuraged to work on this at home Skilled Intervention: Patient was provided supervision during pre-gait/gait training to prevent falls and insure safety. Billing Therapeutic Exercise Treatment Minutes: 44 Gait Training Treatment Minutes: 4 Skilled Treatment Time Minutes (timed and untimed codes): 48 Total Session Time (minutes): 48 Session Start Time : 930 Session Stop Time : 1018 Skyler Foreman PT documented in this encounter [facility] 06-06-2024 Note HNO ID: [id number] Author: SKYLER FOREMAN PT Service: ? Author Type: Physical Therapist Type: Progress Notes Filed: 06/06/2024 10:15 Note Text: Episode Visit Count: 13 Therapist That Will Accept/Oversee The Plan Of Care: Skyler Foreman PT Start of Care Date: 04/17/24 Onset Date: 03/11/24 Patient Identified by Name and Date of : Yes REHABILITATION AND SPORTS THERAPY PHYSICAL THERAPY TREATMENT NOTE ASSESSMENT: Richard Head tolerated the session with expected muscle soreness and no issues. He demonstrated good form with all therapeutic exercises. The patient will continue to benefit from ongoing skilled physical therapy to progress toward set goals. PLAN FOR NEXT VISIT: BFR strengthening LLE. SUBJECTIVE: The swelling is less severe. The ankle feels less banded. Pain: Pain Pain Location: (L falcon) Description: Aching Post Treatment Pain Post Treatment Pain Location: Knee - Left OBJECTIVE MEASURES WITH LEVEL OF FUNCTION: TREATMENT: Therapeutic Exercise: 2: Supine SLR L cuff 140 mmhg x30, x15, x15, x15 3: Standing mini Squats 196 mmhg M cuff x 30, x 15, x 15, x15 4: Standing 6 F step up 196 mmHg M cuff x30 x15 x15 x15 5: Standing B heel raise 196 mmhg M cuff x30 x15 x15 x15 Skilled Intervention: Patient was educated in proper exercise technique and purpose for exercises. Correct performance of therapeutic exercises was facilitated with verbal and visual cuing. Billing Therapeutic Exercise Treatment Minutes: 45 Skilled Treatment Time Minutes (timed and untimed codes): 45 Total Session Time (minutes): 45 Session Start Time : 927 Session Stop Time : 1012 Skyler Foreman PT [facility] 06-06-2024 History of Presen t illness Narrative Episode Visit Count: 13 Therapist That Will Accept/Oversee The Plan Of Care: Skyler Foreman PT Start of Care Date: 04/17/24 Onset Date: 03/11/24 Patient Identified by Name and Date of : Yes REHABILITATION AND SPORTS THERAPY PHYSICAL THERAPY TREATMENT NOTE ASSESSMENT: Richard Head tolerated the session with expected muscle soreness and no issues. He demonstrated good form with all therapeutic exercises. The patient will continue to benefit from ongoing skilled physical therapy to progress toward set goals. PLAN FOR NEXT VISIT: BFR strengthening LLE. SUBJECTIVE: The swelling is less severe. The ankle feels less banded. Pain: Pain Pain Location: (L falcon) Description: Aching Post Treatment Pain Post Treatment Pain Location: Knee - Left OBJECTIVE MEASURES WITH LEVEL OF FUNCTION: TREATMENT: Therapeutic Exercise: 2: Supine SLR L cuff 140 mmhg x30, x15, x15, x15 3: Standing mini Squats 196 mmhg M cuff x 30, x 15, x 15, x15 4: Standing 6 F step up 196 mmHg M cuff x30 x15 x15 x15 5: Standing B heel raise 196 mmhg M cuff x30 x15 x15 x15 Skilled Intervention: Patient was educated in proper exercise technique and purpose for exercises. Correct performance of therapeutic exercises was facilitated with verbal and visual cuing. Billing Therapeutic Exercise Treatment Minutes: 45 Skilled Treatment Time Minutes (timed and untimed codes): 45 Total Session Time (minutes): 45 Session Start Time : 927 Session Stop Time : 1012 Skyler Foreman PT documented in this encounter [facility] 06-04-2024 Note HNO ID: [id number] Author: WING HENDERSON PT Service: ? Author Type: Physical Therapist Type: Progress Notes Filed: 06/05/2024 13:03 Note Text: Episode Visit Count: 12 Therapist That Will Accept/Oversee The Plan Of Care: Skyler Foreman PT Start of Care Date: 04/17/24 Onset Date: 03/11/24 Patient Identified by Name and Date of : Yes REHABILITATION AND SPORTS THERAPY PHYSICAL THERAPY TREATMENT NOTE ASSESSMENT: Richard Head tolerated the session with fatigue and expected muscle soreness. He demonstrated increased fatigue with BFR. The patient will continue to benefit from ongoing skilled physical therapy to progress toward set goals. PLAN FOR NEXT VISIT: Gait training with and without AD. Stability of LLE SUBJECTIVE: Pt presents with his crutches today. Still c/o falcon splint sensation in L lower leg. Uses cane some, but by end of day is fatigued and goes back to walker. Pain: Pain Pain Level: 0 Pain Location: Knee - Left Post Treatment Pain Post Treatment Pain Location: Knee - Left Post Treatment Symptoms: Fatigue OBJECTIVE MEASURES WITH LEVEL OF FUNCTION: Form observed throughout session TREATMENT: Therapeutic Exercise: 1: Acquisition with L cuff in Supine (70%) 140 mmHg;LOP 200 mmHg 2: Supine SLR BFR 140 mmHg (70% occlusion) L cuff size x 30, x 15, x 15, x 15 rep scheme 3: Acquisition with L cuff in standing (70%) 168 mmHg;LOP 240 mmHg 4: Step ups 168 mmHg 4 inch step x30, then x15,x15,x15 with 6 inch step 5: Mini squats at // bars with BFR 168 mmHg, x30,x15,x15,x15. Skilled Intervention: Patient was educated in proper exercise technique and purpose for exercises. Skilled judgment was used in selection of appropriate interventions. Correct performance of therapeutic exercises was facilitated with verbal and visual cuing. Billing Therapeutic Exercise Treatment Minutes: 33 Skilled Treatment Time Minutes (timed and untimed codes): 33 Total Session Time (minutes): 33 Session Start Time : 1531 Session Stop Time : 1604 Jenny Schmidt, NATHEN Henderson, PT [facility] 06-04-2024 History of Presen t illness Narrative Episode Visit Count: 12 Therapist That Will Accept/Oversee The Plan Of Care: Skyler Foreman PT Start of Care Date: 04/17/24 Onset Date: 03/11/24 Patient Identified by Name and Date of : Yes REHABILITATION AND SPORTS THERAPY PHYSICAL THERAPY TREATMENT NOTE ASSESSMENT: Richard Head tolerated the session with fatigue and expected muscle soreness. He demonstrated increased fatigue with BFR. The patient will continue to benefit from ongoing skilled physical therapy to progress toward set goals. PLAN FOR NEXT VISIT: Gait training with and without AD. Stability of LLE SUBJECTIVE: Pt presents with his crutches today. Still c/o falcon splint sensation in L lower leg. Uses cane some, but by end of day is fatigued and goes back to walker. Pain: Pain Pain Level: 0 Pain Location: Knee - Left Post Treatment Pain Post Treatment Pain Location: Knee - Left Post Treatment Symptoms: Fatigue OBJECTIVE MEASURES WITH LEVEL OF FUNCTION: Form observed throughout session TREATMENT: Therapeutic Exercise: 1: Acquisition with L cuff in Supine (70%) 140 mmHg;LOP 200 mmHg 2: Supine SLR BFR 140 mmHg (70% occlusion) L cuff size x 30, x 15, x 15, x 15 rep scheme 3: Acquisition with L cuff in standing (70%) 168 mmHg;LOP 240 mmHg 4: Step ups 168 mmHg 4 inch step x30, then x15,x15,x15 with 6 inch step 5: Mini squats at // bars with BFR 168 mmHg, x30,x15,x15,x15. Skilled Intervention: Patient was educated in proper exercise technique and purpose for exercises. Skilled judgment was used in selection of appropriate interventions. Correct performance of therapeutic exercises was facilitated with verbal and visual cuing. Billing Therapeutic Exercise Treatment Minutes: 33 Skilled Treatment Time Minutes (timed and untimed codes): 33 Total Session Time (minutes): 33 Session Start Time : 1531 Session Stop Time : 1604 NATHEN Salcedo PT documented in this encounter [facility] 06-03-2024 Telephone encounter Note I called patient to let him know we have his insurance approval and we scheduled the appointment for tomorrow. [facility] 06-03-2024 Miscellaneous Notes I called patient to let him know we have his insurance approval and we scheduled the appointment for tomorrow. Patient called for status update on authorization for continuation of physical therapy. PSS messaged Vishnu Stevens who directed the message to [employer]. Please notify patient if approval is received. Next appointment that is being held for patient is on 06/04/24 at 3:30 pm with Jenny Schmidt PTA. documented in this encounter [facility] 06-02-2024 Telephone encounter Note Patient called for status update on authorization for continuation of physical therapy. PSS messaged Vishnu Stevens who directed the message to [employer]. Please notify patient if approval is received. Next appointment that is being held for patient is on 06/04/24 at 3:30 pm with Jenny Schmidt PTA. [facility] 05-30-2024 Note HNO ID: [id number] Author: SKYLER FOREMAN PT Service: ? Author Type: Physical Therapist Type: Progress Notes Filed: 05/30/2024 11:32 Note Text: Episode Visit Count: 11 Therapist That Will Accept/Oversee The Plan Of Care: Skyler Foreman PT Start of Care Date: 04/17/24 Onset Date: 03/11/24 Patient Identified by Name and Date of : Yes REHABILITATION AND SPORTS THERAPY PHYSICAL THERAPY TREATMENT NOTE ASSESSMENT: Richard Head tolerated the session with fatigue and expected muscle soreness. He demonstrated difficulty with having L foot flat with bridge due to limited ankle mobility. The patient will continue to benefit from ongoing skilled physical therapy to progress toward set goals. PLAN FOR NEXT VISIT: Continue with BFR, consider step ups SUBJECTIVE: Pt states that he has normal sitffness and sorenss. Pt reports that his FMLA end 06/12/24 and they are asking for therapy notes. Advised to reach out to medical records. Pt still using walker for ambulation, doesn't feel safe enough to use cane at this point. Pain: Pain Pain Level: 0 Pain Location: Knee - Left Post Treatment Pain Post Treatment Pain Level: 0 Post Treatment Pain Location: Knee - Left OBJECTIVE MEASURES WITH LEVEL OF FUNCTION: Decreased DF of L ankle. TREATMENT: Therapeutic Exercise: 1: Supine SLR BFR 156 mmHg (70% occlusion) M cuff size x 30, x 15, x 15, x 15 rep scheme 2: Hooklying bridge BFR 154 mmHg (70%) occlusion M cuff, x30,x15,x15,x15 rep scheme 3: Mini squats with BUE support using BFR 196 mmHg LLE M cuff size x 30, x15, x15, x15 rep scheme 4: Demonstartion of ant tib stretching for ankle mobility. Skilled Intervention: Patient was educated in proper exercise technique and purpose for exercises. Skilled judgment was used in selection of appropriate interventions. Correct performance of therapeutic exercises was facilitated with verbal and visual cuing. Billing Therapeutic Exercise Treatment Minutes: 42 Skilled Treatment Time Minutes (timed and untimed codes): 42 Total Session Time (minutes): 42 Session Start Time : 1016 Session Stop Time : 1058 Jenny Schmidt, [employer]GRAPHER Skyler Foreman, PT [facility] 05-30-2024 History of Presen t illness Narrative Episode Visit Count: 11 Therapist That Will Accept/Oversee The Plan Of Care: Skyler Foreman PT Start of Care Date: 04/17/24 Onset Date: 03/11/24 Patient Identified by Name and Date of : Yes REHABILITATION AND SPORTS THERAPY PHYSICAL THERAPY TREATMENT NOTE ASSESSMENT: Richard Head tolerated the session with fatigue and expected muscle soreness. He demonstrated difficulty with having L foot flat with bridge due to limited ankle mobility. The patient will continue to benefit from ongoing skilled physical therapy to progress toward set goals. PLAN FOR NEXT VISIT: Continue with BFR, consider step ups SUBJECTIVE: Pt states that he has normal sitffness and sorenss. Pt reports that his FMLA end 06/12/24 and they are asking for therapy notes. Advised to reach out to medical records. Pt still using walker for ambulation, doesn't feel safe enough to use cane at this point. Pain: Pain Pain Level: 0 Pain Location: Knee - Left Post Treatment Pain Post Treatment Pain Level: 0 Post Treatment Pain Location: Knee - Left OBJECTIVE MEASURES WITH LEVEL OF FUNCTION: Decreased DF of L ankle. TREATMENT: Therapeutic Exercise: 1: Supine SLR BFR 156 mmHg (70% occlusion) M cuff size x 30, x 15, x 15, x 15 rep scheme 2: Hooklying bridge BFR 154 mmHg (70%) occlusion M cuff, x30,x15,x15,x15 rep scheme 3: Mini squats with BUE support using BFR 196 mmHg LLE M cuff size x 30, x15, x15, x15 rep scheme 4: Demonstartion of ant tib stretching for ankle mobility. Skilled Intervention: Patient was educated in proper exercise technique and purpose for exercises. Skilled judgment was used in selection of appropriate interventions. Correct performance of therapeutic exercises was facilitated with verbal and visual cuing. Billing Therapeutic Exercise Treatment Minutes: 42 Skilled Treatment Time Minutes (timed and untimed codes): 42 Total Session Time (minutes): 42 Session Start Time : 1016 Session Stop Time : 1058 NATHEN Salcedo PT documented in this encounter [facility] 05-27-2024 Note HNO ID: [id number] Author: SKYLER FOREMAN PT Service: ? Author Type: Physical Therapist Type: Progress Notes Filed: 05/27/2024 09:23 Note Text: Episode Visit Count: 10 Therapist That Will Accept/Oversee The Plan Of Care: Skyler Foreman PT Start of Care Date: 04/17/24 Onset Date: 03/11/24 Patient Identified by Name and Date of : Yes REHABILITATION AND SPORTS THERAPY PHYSICAL THERAPY TREATMENT NOTE ASSESSMENT: Richard Head tolerated the session with fatigue and expected muscle soreness. He demonstrated fair tolerance to BFR training performed this session with some discomfort. The patient will continue to benefit from ongoing skilled physical therapy to progress toward set goals. PLAN FOR NEXT VISIT: BFR strengthening. Add hip abduction exercise to BFR training. SUBJECTIVE: Pt feels that he has taken a step backwards in how his leg performs. He has heard that recovery is not a linear path though. Pain: Pain Pain Level: (Not rated) Pain Location: Knee - Left OBJECTIVE MEASURES WITH LEVEL OF FUNCTION: TREATMENT: Therapeutic Exercise: 1: Mini squats with BUE support using BFR 196 mmHg LLE M cuff size x 30, x15, x15, x15 rep scheme 2: Supine SLR BFR 156 mmHg (70% occlusion) M cuff size x 30, x 15, x 15, x 15 rep scheme 3: Hooklying bridge BFR 154 mmHg (70%) occlusion M cuff, x30,x15,x15,x15 rep scheme Skilled Intervention: Patient was educated in proper exercise technique and purpose for exercises. Provided written instruction for home exercise program to facilitate proper performance and compliance. Correct performance of therapeutic exercises was facilitated with verbal and visual cuing. Billing Therapeutic Exercise Treatment Minutes: 44 Skilled Treatment Time Minutes (timed and untimed codes): 44 Total Session Time (minutes): 44 Session Start Time : 832 Session Stop Time : 916 Skyler Foreman PT [facility] 05-27-2024 History of Presen t illness Narrative Episode Visit Count: 10 Therapist That Will Accept/Oversee The Plan Of Care: Skyler Foreman PT Start of Care Date: 04/17/24 Onset Date: 03/11/24 Patient Identified by Name and Date of : Yes REHABILITATION AND SPORTS THERAPY PHYSICAL THERAPY TREATMENT NOTE ASSESSMENT: Richard Head tolerated the session with fatigue and expected muscle soreness. He demonstrated fair tolerance to BFR training performed this session with some discomfort. The patient will continue to benefit from ongoing skilled physical therapy to progress toward set goals. PLAN FOR NEXT VISIT: BFR strengthening. Add hip abduction exercise to BFR training. SUBJECTIVE: Pt feels that he has taken a step backwards in how his leg performs. He has heard that recovery is not a linear path though. Pain: Pain Pain Level: (Not rated) Pain Location: Knee - Left OBJECTIVE MEASURES WITH LEVEL OF FUNCTION: TREATMENT: Therapeutic Exercise: 1: Mini squats with BUE support using BFR 196 mmHg LLE M cuff size x 30, x15, x15, x15 rep scheme 2: Supine SLR BFR 156 mmHg (70% occlusion) M cuff size x 30, x 15, x 15, x 15 rep scheme 3: Hooklying bridge BFR 154 mmHg (70%) occlusion M cuff, x30,x15,x15,x15 rep scheme Skilled Intervention: Patient was educated in proper exercise technique and purpose for exercises. Provided written instruction for home exercise program to facilitate proper performance and compliance. Correct performance of therapeutic exercises was facilitated with verbal and visual cuing. Billing Therapeutic Exercise Treatment Minutes: 44 Skilled Treatment Time Minutes (timed and untimed codes): 44 Total Session Time (minutes): 44 Session Start Time : 832 Session Stop Time : 916 Skyler Foreman PT documented in this encounter [facility] 05-16-2024 Note HNO ID: [id number] Author: SKYLER FOREMAN PT Service: ? Author Type: Physical Therapist Type: Progress Notes Filed: 05/19/2024 07:16 Note Text: Episode Visit Count: 9 Therapist That Will Accept/Oversee The Plan Of Care: Skyler Foreman PT Start of Care Date: 04/17/24 Onset Date: 03/11/24 Patient Identified by Name and Date of : Yes REHABILITATION AND SPORTS THERAPY PHYSICAL THERAPY PROGRESS REPORT PLAN OF CARE UPDATE: Assessment: Richard Head demonstrates difficulty with walking, lifting, physical activities, squatting, and carrying. The patient has progressed toward goals. Patient continues to present with impairments in ADL's, gait, independence in exercise, overall function, range of motion, and strength that interfere with walking, working, stair negotiation . Current prognosis is Good due to: current objective clinical presentation . The patient will benefit from continued skilled therapy services to meet the updated goals for this plan of care as noted below. Goals updated 05/16/24 Goals for Episode of Care: established 04/17/24 Gos[place] in home exercise program. - Met so far Perform squats, kneeling, and walking without pain. - Not met Increase ROM of L knee to 0-130 degrees of flexion for improved gait quality and stability with ADL's - Progressing, will continue Increased strength of LLE to 5/5 for return to work - Progressing, will continue Normal gait. - Not met Reciprocal stair negotiation. - Not met Patient Goals: Return to work Time Frame for Goals and Treatment : 07/10/24 Patient Goals: Return to work Planned Interventions, Frequency, and Duration: 2x/week, 4 weeks Total Number of Visits Planned: 8 Patient to be seen for Therapeutic exercise (36988), Neuromuscular re-education (25548), Manual therapy (92401), Therapeutic activities (23721), Self-snf management (50624), Gait Training (94115), Patient/Family/Caregiver Education PLAN FOR NEXT VISIT: LE strengthening using BFR if pt approves SUBJECTIVE: Some more pain in the L falcon afterthe last session. Did a lot of WB exercises and a lot of walking after the last session. Patient Goals: Return to work Functional Limitations: walking, working, stair negotiation Prior Level of Function: Independent without limitations Intake Information: Prescription present Previous Treatment: Surgery Pain: Pain Pain Level: (Not rated) Pain Location: Leg - Left PROMIS Scales 05/15/2024 04/21/2024 04/16/2024 Higher is Better Phys Func - Score 24 (severe dysfunction) Phys Func - Percentile 0 Self-Eff Symptom - Score 41 (Average) 36 (Low) Self-Eff Symptom - Percentile 18 8 T-scores: mean of general population = 50. 5 points is clinically meaningfully difference Percentiles provide an indication of how the patient's score ranks in relation to the general population. Higher percentile rankings indicate better function/quality of life. 50th percentile is the average of the general population and indicates half of respondents had a worse score. OBJECTIVE MEASURES WITH LEVEL OF FUNCTION: Knee Observations R Knee Presents with: (Swelling in distal tibia) LE AROM L LE AROM: WNL L Knee Extension: 0 Degrees L Knee Flexion: 113 Degrees L Ankle Dorsiflexion: 6 Degrees L Ankle Plantar Flexion: 35 Degrees LE Flexibility Flexibility: Gastrocnemius Flexibility R Gastrocnemius Flexibility: WNL L Gastrocnemius Flexibility: Tight LE Strength L Hip Extension: 4/5 L Hip Flexion (L2): 4+/5 L Hip ABduction: 3+/5 L Hip External Rotation: 3+/5 L Knee Extension (L3): 3+/5 Gait Weight Bearing Status: WBAT Gait: Modified Independent Gait Distance (feet): 20 Gait Device: Wheeled Walker Gait Deviations: Left Lower Extremity Gait Deviations Left Lower Extremity: Weight bearing decreased, Step length decreased, Stance time decreased TREATMENT: Therapeutic Exercise: 1: All objectives taken 2: BFR 70% partial occlusion measures this visit. 70% partial occlusion preferred by pt vs 80%. 70% partial occlusion is 154 mmHg in supine and 196 mmHg standing. 3: Discussed any modifications to the HEP. Discussed how to increase volume of the current exercise plan appropriately. Skilled Intervention: Patient was educated in proper exercise technique and purpose for exercises. Correct performance of therapeutic exercises was facilitated with verbal and visual cuing. Billing Therapeutic Exercise Treatment Minutes: 45 Skilled Treatment Time Minutes (timed and untimed codes): 45 Total Session Time (minutes): 45 Session Start Time : 0930 Session Stop Time : 1015 Skyler Foreman PT [facility] 05-16-2024 History of Presen t illness Narrative Images from the original note were not included. Episode Visit Count: 9 Therapist That Will Accept/Oversee The Plan Of Care: Skyler Foreman PT Start of Care Date: 04/17/24 Onset Date: 03/11/24 Patient Identified by Name and Date of : Yes REHABILITATION AND SPORTS THERAPY PHYSICAL THERAPY PROGRESS REPORT PLAN OF CARE UPDATE: Assessment: Richard Head demonstrates difficulty with walking, lifting, physical activities, squatting, and carrying. The patient has progressed toward goals. Patient continues to present with impairments in ADL's, gait, independence in exercise, overall function, range of motion, and strength that interfere with walking, working, stair negotiation . Current prognosis is Good due to: current objective clinical presentation . The patient will benefit from continued skilled therapy services to meet the updated goals for this plan of care as noted below. Goals updated 05/16/24 Goals for Episode of Care: established 04/17/24 Gos[place] in home exercise program. - Met so far Perform squats, kneeling, and walking without pain. - Not met Increase ROM of L knee to 0-130 degrees of flexion for improved gait quality and stability with ADL's - Progressing, will continue Increased strength of LLE to 5/5 for return to work - Progressing, will continue Normal gait. - Not met Reciprocal stair negotiation. - Not met Patient Goals: Return to work Time Frame for Goals and Treatment : 07/10/24 Patient Goals: Return to work Planned Interventions, Frequency, and Duration: 2x/week, 4 weeks Total Number of Visits Planned: 8 Patient to be seen for Therapeutic exercise (23665), Neuromuscular re-education (26089), Manual therapy (45758), Therapeutic activities (09484), Self-snf management (92649), Gait Training (49198), Patient/Family/Caregiver Education PLAN FOR NEXT VISIT: LE strengthening using BFR if pt approves SUBJECTIVE: Some more pain in the L falcon afterthe last session. Did a lot of WB exercises and a lot of walking after the last session. Patient Goals: Return to work Functional Limitations: walking, working, stair negotiation Prior Level of Function: Independent without limitations Intake Information: Prescription present Previous Treatment: Surgery Pain: Pain Pain Level: (Not rated) Pain Location: Leg - Left PROMIS Scales 05/15/2024 04/21/2024 04/16/2024 Higher is Better Phys Func - Score 24 (severe dysfunction) Phys Func - Percentile 0 Self-Eff Symptom - Score 41 (Average) 36 (Low) Self-Eff Symptom - Percentile 18 8 T-scores: mean of general population = 50. 5 points is clinically meaningfully difference Percentiles provide an indication of how the patient's score ranks in relation to the general population. Higher percentile rankings indicate better function/quality of life. 50th percentile is the average of the general population and indicates half of respondents had a worse score. OBJECTIVE MEASURES WITH LEVEL OF FUNCTION: Knee Observations R Knee Presents with: (Swelling in distal tibia) LE AROM L LE AROM: WNL L Knee Extension: 0 Degrees L Knee Flexion: 113 Degrees L Ankle Dorsiflexion: 6 Degrees L Ankle Plantar Flexion: 35 Degrees LE Flexibility Flexibility: Gastrocnemius Flexibility R Gastrocnemius Flexibility: WNL L Gastrocnemius Flexibility: Tight LE Strength L Hip Extension: 4/5 L Hip Flexion (L2): 4+/5 L Hip ABduction: 3+/5 L Hip External Rotation: 3+/5 L Knee Extension (L3): 3+/5 Gait Weight Bearing Status: WBAT Gait: Modified Independent Gait Distance (feet): 20 Gait Device: Wheeled Walker Gait Deviations: Left Lower Extremity Gait Deviations Left Lower Extremity: Weight bearing decreased, Step length decreased, Stance time decreased TREATMENT: Therapeutic Exercise: 1: All objectives taken 2: BFR 70% partial occlusion measures this visit. 70% partial occlusion preferred by pt vs 80%. 70% partial occlusion is 154 mmHg in supine and 196 mmHg standing. 3: Discussed any modifications to the HEP. Discussed how to increase volume of the current exercise plan appropriately. Skilled Intervention: Patient was educated in proper exercise technique and purpose for exercises. Correct performance of therapeutic exercises was facilitated with verbal and visual cuing. Billing Therapeutic Exercise Treatment Minutes: 45 Skilled Treatment Time Minutes (timed and untimed codes): 45 Total Session Time (minutes): 45 Session Start Time : 30 Session Stop Time : 1015 Skyler Foreman PT documented in this encounter [facility] 05-12-2024 Note HNO ID: [id number] Author: WING HENDERSON PT Service: ? Author Type: Physical Therapist Type: Progress Notes Filed: 05/12/2024 13:45 Note Text: Episode Visit Count: 8 Therapist That Will Accept/Oversee The Plan Of Care: Skyler Foreman PT Start of Care Date: 04/17/24 Onset Date: 03/11/24 REHABILITATION AND SPORTS THERAPY PHYSICAL THERAPY TREATMENT NOTE ASSESSMENT: Ricahrd Head tolerated the session with fatigue, expected muscle soreness, and no issues. He demonstrated improvements in tolerance for WB exercises. The patient will continue to benefit from ongoing skilled physical therapy to progress toward set goals and for reassessment by supervising therapist. PLAN FOR NEXT VISIT: [place] with Skyler SUBJECTIVE: No change today. Patient continues to be worn down by the end of the day currently Pain: Pain Pain Level: 3 Pain Location: Leg - Left Description: Aching Frequency: Continuous OBJECTIVE MEASURES WITH LEVEL OF FUNCTION: TREATMENT: Therapeutic Exercise: 1: SciFit seat 12 no reisstance x5 min 2: Step ups onto 6 step 2x10 3: Lateral step- ups on 6 inch step 2x10 4: TRX squats 3x10 5: Standing at // bars marching 3x10 5# 6: Standing at // bars hip abduction 3x10 7: Standing at //bar hip abduction to the right no weight 3x10 (more for SL stance time on L, cued for minimal support with UE) 8: Standing at // bars marching RLE 3x10 (more for SL stance time on L, cued for minimal support with UE) 9: Standing at // bars calf raises 3x10 (cued for minimal needed UE support) 10: Standing at // bars dorsiflexion 3x10 (cued for minimal needed UE support) 11: SLS at // bars 2x60 sec (UE support as needed, cued for minimal needed) Skilled Intervention: Patient was educated in proper exercise technique and purpose for exercises. Skilled judgment was used in selection of appropriate interventions. Provided written instruction for home exercise program to facilitate proper performance and compliance. Correct performance of therapeutic exercises was facilitated with verbal, visual, and tactile cuing. Billing Therapeutic Exercise Treatment Minutes: 42 Skilled Treatment Time Minutes (timed and untimed codes): 42 Total Session Time (minutes): 42 Session Start Time : 1050 Session Stop Time : 1132 Wing Henderson PT [facility] 05-12-2024 History of Presen t illness Narrative Episode Visit Count: 8 Therapist That Will Accept/Oversee The Plan Of Care: Skyler Foreman PT Start of Care Date: 04/17/24 Onset Date: 03/11/24 REHABILITATION AND SPORTS THERAPY PHYSICAL THERAPY TREATMENT NOTE ASSESSMENT: Richard Head tolerated the session with fatigue, expected muscle soreness, and no issues. He demonstrated improvements in tolerance for WB exercises. The patient will continue to benefit from ongoing skilled physical therapy to progress toward set goals and for reassessment by supervising therapist. PLAN FOR NEXT VISIT: [place] with Skyler SUBJECTIVE: No change today. Patient continues to be worn down by the end of the day currently Pain: Pain Pain Level: 3 Pain Location: Leg - Left Description: Aching Frequency: Continuous OBJECTIVE MEASURES WITH LEVEL OF FUNCTION: TREATMENT: Therapeutic Exercise: 1: SciFit seat 12 no reisstance x5 min 2: Step ups onto 6 step 2x10 3: Lateral step- ups on 6 inch step 2x10 4: TRX squats 3x10 5: Standing at // bars marching 3x10 5# 6: Standing at // bars hip abduction 3x10 7: Standing at //bar hip abduction to the right no weight 3x10 (more for SL stance time on L, cued for minimal support with UE) 8: Standing at // bars marching RLE 3x10 (more for SL stance time on L, cued for minimal support with UE) 9: Standing at // bars calf raises 3x10 (cued for minimal needed UE support) 10: Standing at // bars dorsiflexion 3x10 (cued for minimal needed UE support) 11: SLS at // bars 2x60 sec (UE support as needed, cued for minimal needed) Skilled Intervention: Patient was educated in proper exercise technique and purpose for exercises. Skilled judgment was used in selection of appropriate interventions. Provided written instruction for home exercise program to facilitate proper performance and compliance. Correct performance of therapeutic exercises was facilitated with verbal, visual, and tactile cuing. Billing Therapeutic Exercise Treatment Minutes: 42 Skilled Treatment Time Minutes (timed and untimed codes): 42 Total Session Time (minutes): 42 Session Start Time : 1050 Session Stop Time : 1132 Wing Henderson PT documented in this encounter [facility] 05-08-2024 Note HNO ID: [id number] Author: WING HENDERSON PT Service: ? Author Type: Physical Therapist Type: Progress Notes Filed: 05/08/2024 11:03 Note Text: Episode Visit Count: 7 Therapist That Will Accept/Oversee The Plan Of Care: Skyler Foreman PT Start of Care Date: 04/17/24 Onset Date: 03/11/24 Patient Identified by Name and Date of : Yes REHABILITATION AND SPORTS THERAPY PHYSICAL THERAPY TREATMENT NOTE ASSESSMENT: Richard Head tolerated the session with fatigue, decreased symptoms, and expected muscle soreness. He demonstrated difficulty with eccentric quad control with lateral step ups. The patient will continue to benefit from ongoing skilled physical therapy to progress toward set goals. PLAN FOR NEXT VISIT: Work on weight shfits to facilitate heel to toe pattern. SUBJECTIVE: Pt reports that his knee still gets tight really easy. Pt states that he feels like he still has a band of tightness around his ankle and limits his motion, is not continuous like it was. Pain: Pain Pain Level: 3 Pain Location: Leg - Left Description: Aching Post Treatment Pain Post Treatment Pain Location: Knee - Left Post Treatment Symptoms: Decreased stiffness OBJECTIVE MEASURES WITH LEVEL OF FUNCTION: Decreased heel to toe pattern. TREATMENT: Therapeutic Exercise: 1: SciFit seat 12 no reisstance x5 min (1:1 throughout. Discussed possible rationale for increased swelling and tightness.) 2: Step-up on 6 inch step 2x10 LLE 3: Lateral step- ups on 4 inch step 3x5 4: PLantar fascia stretch 3x30 seconds 5: STS 2x10 without use of UE Skilled Intervention: Patient was educated in proper exercise technique and purpose for exercises. Reviewed and educated patient on additions/changes for home exercise program as above (*). Skilled judgment was used in selection of appropriate interventions. Correct performance of therapeutic exercises was facilitated with verbal and visual cuing. Manual Therapy: 1: Superficial effleurage over LLE x 8 minutes with BLE elevated on 2 wedges in supine Skilled Intervention: Manual skills to improve joint mobility, ROM, and decrease pain. Utilized anatomy knowledge of the therapist, and assessment of patient's response to intervention. Billing Therapeutic Exercise Treatment Minutes: 36 Manual TherapyTreatment Minutes: 8 Skilled Treatment Time Minutes (timed and untimed codes): 44 Total Session Time (minutes): 44 Session Start Time : 930 Session Stop Time : 1015 NATHEN Salcedo, PT [facility] 05-08-2024 History of Presen t illness Narrative Episode Visit Count: 7 Therapist That Will Accept/Oversee The Plan Of Care: Skyler Foreman PT Start of Care Date: 04/17/24 Onset Date: 03/11/24 Patient Identified by Name and Date of : Yes REHABILITATION AND SPORTS THERAPY PHYSICAL THERAPY TREATMENT NOTE ASSESSMENT: Richard Head tolerated the session with fatigue, decreased symptoms, and expected muscle soreness. He demonstrated difficulty with eccentric quad control with lateral step ups. The patient will continue to benefit from ongoing skilled physical therapy to progress toward set goals. PLAN FOR NEXT VISIT: Work on weight shfits to facilitate heel to toe pattern. SUBJECTIVE: Pt reports that his knee still gets tight really easy. Pt states that he feels like he still has a band of tightness around his ankle and limits his motion, is not continuous like it was. Pain: Pain Pain Level: 3 Pain Location: Leg - Left Description: Aching Post Treatment Pain Post Treatment Pain Location: Knee - Left Post Treatment Symptoms: Decreased stiffness OBJECTIVE MEASURES WITH LEVEL OF FUNCTION: Decreased heel to toe pattern. TREATMENT: Therapeutic Exercise: 1: SciFit seat 12 no reisstance x5 min (1:1 throughout. Discussed possible rationale for increased swelling and tightness.) 2: Step-up on 6 inch step 2x10 LLE 3: Lateral step- ups on 4 inch step 3x5 4: PLantar fascia stretch 3x30 seconds 5: STS 2x10 without use of UE Skilled Intervention: Patient was educated in proper exercise technique and purpose for exercises. Reviewed and educated patient on additions/changes for home exercise program as above (*). Skilled judgment was used in selection of appropriate interventions. Correct performance of therapeutic exercises was facilitated with verbal and visual cuing. Manual Therapy: 1: Superficial effleurage over LLE x 8 minutes with BLE elevated on 2 wedges in supine Skilled Intervention: Manual skills to improve joint mobility, ROM, and decrease pain. Utilized anatomy knowledge of the therapist, and assessment of patient's response to intervention. Billing Therapeutic Exercise Treatment Minutes: 36 Manual TherapyTreatment Minutes: 8 Skilled Treatment Time Minutes (timed and untimed codes): 44 Total Session Time (minutes): 44 Session Start Time : 930 Session Stop Time : 101 NATHEN Salcedo PT documented in this encounter [facility] 05-05-2024 Note HNO ID: [id number] Author: SKYLER FOREMAN PT Service: ? Author Type: Physical Therapist Type: Progress Notes Filed: 05/05/2024 13:55 Note Text: Episode Visit Count: 6 Therapist That Will Accept/Oversee The Plan Of Care: Skyler Foreman PT Start of Care Date: 04/17/24 Onset Date: 03/11/24 Patient Identified by Name and Date of : Yes REHABILITATION AND SPORTS THERAPY PHYSICAL THERAPY TREATMENT NOTE ASSESSMENT: Rcihard Head tolerated the session with expected muscle soreness and no issues. He demonstrated continued difficulty with WB even when using a FWW. The patient will continue to benefit from ongoing skilled physical therapy to progress toward set goals. PLAN FOR NEXT VISIT: Calf stretching. Quad and hip strengthening. Work on WB tolerance and gait as needed. SUBJECTIVE: Tight band feeling at the front of the knee and ankle of the LLE. Pain: Pain Pain Level: 2 Pain Location: Leg - Left OBJECTIVE MEASURES WITH LEVEL OF FUNCTION: Walking using FWW and decreased stance phase and WB on the LLE noted TREATMENT: Therapeutic Exercise: 1: TRX squats 2 x 15 2: 4 F step-ups x 10 3: 6 F Step-up x 15 4: B heel raises at parallel bars x 30 reps 5: Toe raises x 30 6: F step-up double green step 2 x 15 7: Calf stretch bilateral, on step 3 x 30 sec 8: Standing anterior capsule stretch of the L ankle 3 x 30 sec 9: SL stance BUE support at parallel bars x 60 sec 10: L hip abduction in standing 5# ankle weight on LLE 11: L hip march 5# ankle weight on LLE Skilled Intervention: Patient was educated in proper exercise technique and purpose for exercises. Correct performance of therapeutic exercises was facilitated with verbal cuing. Billing Therapeutic Exercise Treatment Minutes: 40 Skilled Treatment Time Minutes (timed and untimed codes): 40 Total Session Time (minutes): 40 Session Start Time : 1217 Session Stop Time : 1257 Skyler Foremna PT [facility] 05-05-2024 History of Presen t illness Narrative Episode Visit Count: 6 Therapist That Will Accept/Oversee The Plan Of Care: Skyler Foreman PT Start of Care Date: 04/17/24 Onset Date: 03/11/24 Patient Identified by Name and Date of : Yes REHABILITATION AND SPORTS THERAPY PHYSICAL THERAPY TREATMENT NOTE ASSESSMENT: Richard Head tolerated the session with expected muscle soreness and no issues. He demonstrated continued difficulty with WB even when using a FWW. The patient will continue to benefit from ongoing skilled physical therapy to progress toward set goals. PLAN FOR NEXT VISIT: Calf stretching. Quad and hip strengthening. Work on WB tolerance and gait as needed. SUBJECTIVE: Tight band feeling at the front of the knee and ankle of the LLE. Pain: Pain Pain Level: 2 Pain Location: Leg - Left OBJECTIVE MEASURES WITH LEVEL OF FUNCTION: Walking using FWW and decreased stance phase and WB on the LLE noted TREATMENT: Therapeutic Exercise: 1: TRX squats 2 x 15 2: 4 F step-ups x 10 3: 6 F Step-up x 15 4: B heel raises at parallel bars x 30 reps 5: Toe raises x 30 6: F step-up double green step 2 x 15 7: Calf stretch bilateral, on step 3 x 30 sec 8: Standing anterior capsule stretch of the L ankle 3 x 30 sec 9: SL stance BUE support at parallel bars x 60 sec 10: L hip abduction in standing 5# ankle weight on LLE 11: L hip march 5# ankle weight on LLE Skilled Intervention: Patient was educated in proper exercise technique and purpose for exercises. Correct performance of therapeutic exercises was facilitated with verbal cuing. Billing Therapeutic Exercise Treatment Minutes: 40 Skilled Treatment Time Minutes (timed and untimed codes): 40 Total Session Time (minutes): 40 Session Start Time : 1217 Session Stop Time : 1257 Skyler Foreman PT documented in this encounter [facility] 05-01-2024 Note HNO ID: [id number] Author: WING HENDERSON PT Service: ? Author Type: Physical Therapist Type: Progress Notes Filed: 05/01/2024 14:30 Note Text: Episode Visit Count: 5 Therapist That Will Accept/Oversee The Plan Of Care: Skyler Foreman PT Start of Care Date: 04/17/24 Onset Date: 03/11/24 Patient Identified by Name and Date of : Yes REHABILITATION AND SPORTS THERAPY PHYSICAL THERAPY TREATMENT NOTE ASSESSMENT: Richard Head tolerated the session with fatigue, expected muscle soreness, and no issues. He demonstrated difficulty with L quad strength but improving tolerance for WB and use of cane vs walker. The patient will continue to benefit from ongoing skilled physical therapy to progress toward set goals and to continue with post-operative protocol. PLAN FOR NEXT VISIT: Continue exercise and strengthening per tolerance. SUBJECTIVE: Patient with normal stiff and sore today Pain: Pain Pain Level: 3 Pain Location: Leg - Left Description: Aching, Sore, Tightness Frequency: Continuous OBJECTIVE MEASURES WITH LEVEL OF FUNCTION: LE AROM L Ankle Dorsiflexion: 6 Degrees TREATMENT: Therapeutic Exercise: 1: SciFit seat 12 no reisstance x6 min (Discussed patient obtaining quad cane and how he functioned at home with this. Subjective also taken) 2: Ankle circles 3x10 cw/ccw 3: BAPS 3rd level 2x10 PF/DF, inv/ev, circles cw/ccw 4: LAQ 7.5# ankle weight 3x10 5: Gastroc stretch in long sitting with strap assist 3x30 sec 6: TRX squats 3x10 7: Step ups onto 1 blue step Skilled Intervention: Patient was educated in proper exercise technique and purpose for exercises. Skilled judgment was used in selection of appropriate interventions. Correct performance of therapeutic exercises was facilitated with verbal and visual cuing. Gait Trainin: Quad cane and SPC ambulation inside // bars 2x each down and back, then 3 laps around gym each with cuing for proper form, push off, and proper sizing Skilled Intervention: Patient was provided supervision during pre-gait/gait training to prevent falls and insure safety. Facilitated proper gait cycle with the use of verbal and visual cues for correction of gait deviations identified in the objective section above. Skilled judgment used to assess selection and proper sizing of assistive device. Billing Therapeutic Exercise Treatment Minutes: 30 Gait Training Treatment Minutes: 9 Skilled Treatment Time Minutes (timed and untimed codes): 39 Total Session Time (minutes): 39 Session Start Time : 0950 Session Stop Time : 1029 Wing Henderson PT [facility] 05-01-2024 History of Presen t illness Narrative Episode Visit Count: 5 Therapist That Will Accept/Oversee The Plan Of Care: Skyler Foreman PT Start of Care Date: 04/17/24 Onset Date: 03/11/24 Patient Identified by Name and Date of : Yes REHABILITATION AND SPORTS THERAPY PHYSICAL THERAPY TREATMENT NOTE ASSESSMENT: Richard Head tolerated the session with fatigue, expected muscle soreness, and no issues. He demonstrated difficulty with L quad strength but improving tolerance for WB and use of cane vs walker. The patient will continue to benefit from ongoing skilled physical therapy to progress toward set goals and to continue with post-operative protocol. PLAN FOR NEXT VISIT: Continue exercise and strengthening per tolerance. SUBJECTIVE: Patient with normal stiff and sore today Pain: Pain Pain Level: 3 Pain Location: Leg - Left Description: Aching, Sore, Tightness Frequency: Continuous OBJECTIVE MEASURES WITH LEVEL OF FUNCTION: LE AROM L Ankle Dorsiflexion: 6 Degrees TREATMENT: Therapeutic Exercise: 1: SciFit seat 12 no reisstance x6 min (Discussed patient obtaining quad cane and how he functioned at home with this. Subjective also taken) 2: Ankle circles 3x10 cw/ccw 3: BAPS 3rd level 2x10 PF/DF, inv/ev, circles cw/ccw 4: LAQ 7.5# ankle weight 3x10 5: Gastroc stretch in long sitting with strap assist 3x30 sec 6: TRX squats 3x10 7: Step ups onto 1 blue step Skilled Intervention: Patient was educated in proper exercise technique and purpose for exercises. Skilled judgment was used in selection of appropriate interventions. Correct performance of therapeutic exercises was facilitated with verbal and visual cuing. Gait Trainin: Quad cane and SPC ambulation inside // bars 2x each down and back, then 3 laps around gym each with cuing for proper form, push off, and proper sizing Skilled Intervention: Patient was provided supervision during pre-gait/gait training to prevent falls and insure safety. Facilitated proper gait cycle with the use of verbal and visual cues for correction of gait deviations identified in the objective section above. Skilled judgment used to assess selection and proper sizing of assistive device. Billing Therapeutic Exercise Treatment Minutes: 30 Gait Training Treatment Minutes: 9 Skilled Treatment Time Minutes (timed and untimed codes): 39 Total Session Time (minutes): 39 Session Start Time : 0950 Session Stop Time : 1029 Wing Henderson PT documented in this encounter [facility] 04-28-2024 Note HNO ID: [id number] Author: SANTIAGO, WING, PT Service: ? Author Type: Physical Therapist Type: Progress Notes Filed: 04/28/2024 11:55 Note Text: Episode Visit Count: 4 Therapist That Will Accept/Oversee The Plan Of Care: Skyler Foreman PT Start of Care Date: 04/17/24 Onset Date: 03/11/24 REHABILITATION AND SPORTS THERAPY PHYSICAL THERAPY TREATMENT NOTE ASSESSMENT: Richard Head tolerated the session with fatigue and no issues. He demonstrated improvements in tolerance for ambulation with quad cane. Patient was encouraged to purchase a quad cane and start using it within his home, eventually moving to use it outside his home once strength and confident improve. The patient will continue to benefit from ongoing skilled physical therapy to progress toward set goals. PLAN FOR NEXT VISIT: Continue gait progression. Lower extremity strengthening per tolerance as well SUBJECTIVE: Patient stiff and sore today, kind of his norm right now. Pain: Pain Pain Level: 3 Pain Location: Leg - Left Description: Aching, Sore, Tightness Frequency: Continuous OBJECTIVE MEASURES WITH LEVEL OF FUNCTION: LE AROM L Ankle Dorsiflexion: 5 Degrees TREATMENT: Therapeutic Exercise: 1: SciFit seat 12 no reisstance x6 min (Discussed subjective, after effects of last visit, and thoghts on using quad cane vs SPC) 2: Ankle circles 3x10 cw/ccw 3: Ankle alphabet 1x 4: BAPS 3rd level 2x10 PF/DF, inv/ev, circles cw/ccw 5: LAQ 5# ankle weight 3x10 6: Gastroc stretch in long sitting with strap assist 3x30 sec 7: TRX squats 3x10 8: *Ankle dorsiflexion self mob 3x10 on 1 step stool or step in his home with UE support Skilled Intervention: Patient was educated in proper exercise technique and purpose for exercises. Skilled judgment was used in selection of appropriate interventions. Provided written instruction for home exercise program to facilitate proper performance and compliance. Correct performance of therapeutic exercises was facilitated with verbal, visual, and tactile cuing. Gait Trainin: Quad cane inside //bars and 1 lap around gym with supervision assist and cuing for proper heel to toe ambulation and encouragement for improved push off at toe off Skilled Intervention: Patient was provided supervision during pre-gait/gait training to prevent falls and insure safety. Facilitated proper gait cycle with the use of verbal and visual cues for correction of gait deviations identified in the objective section above. Skilled judgment used to assess selection of assistive device. Billing Therapeutic Exercise Treatment Minutes: 34 Gait Training Treatment Minutes: 7 Skilled Treatment Time Minutes (timed and untimed codes): 41 Total Session Time (minutes): 41 Session Start Time : 1048 Session Stop Time : 1129 Wing Henderson PT [facility] 04-28-2024 History of Presen t illness Narrative Episode Visit Count: 4 Therapist That Will Accept/Oversee The Plan Of Care: Skyler Foreman PT Start of Care Date: 04/17/24 Onset Date: 03/11/24 REHABILITATION AND SPORTS THERAPY PHYSICAL THERAPY TREATMENT NOTE ASSESSMENT: Richard Head tolerated the session with fatigue and no issues. He demonstrated improvements in tolerance for ambulation with quad cane. Patient was encouraged to purchase a quad cane and start using it within his home, eventually moving to use it outside his home once strength and confident improve. The patient will continue to benefit from ongoing skilled physical therapy to progress toward set goals. PLAN FOR NEXT VISIT: Continue gait progression. Lower extremity strengthening per tolerance as well SUBJECTIVE: Patient stiff and sore today, kind of his norm right now. Pain: Pain Pain Level: 3 Pain Location: Leg - Left Description: Aching, Sore, Tightness Frequency: Continuous OBJECTIVE MEASURES WITH LEVEL OF FUNCTION: LE AROM L Ankle Dorsiflexion: 5 Degrees TREATMENT: Therapeutic Exercise: 1: SciFit seat 12 no reisstance x6 min (Discussed subjective, after effects of last visit, and thoghts on using quad cane vs SPC) 2: Ankle circles 3x10 cw/ccw 3: Ankle alphabet 1x 4: BAPS 3rd level 2x10 PF/DF, inv/ev, circles cw/ccw 5: LAQ 5# ankle weight 3x10 6: Gastroc stretch in long sitting with strap assist 3x30 sec 7: TRX squats 3x10 8: *Ankle dorsiflexion self mob 3x10 on 1 step stool or step in his home with UE support Skilled Intervention: Patient was educated in proper exercise technique and purpose for exercises. Skilled judgment was used in selection of appropriate interventions. Provided written instruction for home exercise program to facilitate proper performance and compliance. Correct performance of therapeutic exercises was facilitated with verbal, visual, and tactile cuing. Gait Trainin: Quad cane inside //bars and 1 lap around gym with supervision assist and cuing for proper heel to toe ambulation and encouragement for improved push off at toe off Skilled Intervention: Patient was provided supervision during pre-gait/gait training to prevent falls and insure safety. Facilitated proper gait cycle with the use of verbal and visual cues for correction of gait deviations identified in the objective section above. Skilled judgment used to assess selection of assistive device. Billing Therapeutic Exercise Treatment Minutes: 34 Gait Training Treatment Minutes: 7 Skilled Treatment Time Minutes (timed and untimed codes): 41 Total Session Time (minutes): 41 Session Start Time : 1048 Session Stop Time : 1129 Wing Henderson PT Program_ID:[id number] Access Code: [email or web address] URL: [email or web address] Date: 04-28-2024 Prepared By: Skyler Foreman Program Notes Exercises - Supine Knee Extension Stretch on Towel Roll - 1 x daily - 7 x weekly - 4 sets - 10 reps - Standing Tandem Balance with Counter Support - 1 x daily - 7 x weekly - 5 sets - reps - Supine Ankle Circles - 1 x daily - 7 x weekly - 3 sets - 10 reps - Seated Ankle Alphabet - 1 x daily - 7 x weekly - 3 sets - 10 reps - Long Sitting Calf Stretch with Strap - 1 x daily - 7 x weekly - 3 sets - 3 reps - Seated Long Arc Quad - 1 x daily - 7 x weekly - 3 sets - 10 reps - Active Straight Leg Raise with Quad Set - 1 x daily - 7 x weekly - 3 sets - 10 reps - Standing Ankle Dorsiflexion Stretch on Chair - 1 x daily - 7 x weekly - 3 sets - 10 reps documented in this encounter [facility] 04-25-2024 Note HNO ID: [id number] Author: WING HENDERSON PT Service: ? Author Type: Physical Therapist Type: Progress Notes Filed: 04/25/2024 12:50 Note Text: Episode Visit Count: 3 Therapist That Will Accept/Oversee The Plan Of Care: Skyler Foreman PT Start of Care Date: 04/17/24 Onset Date: 03/11/24 REHABILITATION AND SPORTS THERAPY PHYSICAL THERAPY TREATMENT NOTE ASSESSMENT: Richard Head tolerated the session with no issues. He demonstrated improvements in tolerance for strengthening and had good response to ambulation with cane today. The patient will continue to benefit from ongoing skilled physical therapy to progress toward set goals. PLAN FOR NEXT VISIT: Will discuss BFR with physician SUBJECTIVE: Patient doing well with HEP. Falcon is more sore today, unsure why. Nothing emchanical increases symptoms Pain: Pain Pain Level: 3 Pain Location: Leg - Left Description: Aching Frequency: Continuous OBJECTIVE MEASURES WITH LEVEL OF FUNCTION: LE AROM L Knee Extension: 0 Degrees L Ankle Dorsiflexion: 6 Degrees TREATMENT: Therapeutic Exercise: 1: SciFit seat 13 no reisstance x5 min (1:1 entire time. Discussed HEP and short PNE on nerve sensitivity with change in weather) 2: Quad sets with active knee extension 2x10, 2-3 sec holds 3: Gastroc stretch in long sitting with strap assist 3x30 sec 4: SLR 3x10 (minimal quad lag noted today as he fatigued) 5: Ankle circles 3x10 cw/ccw 6: Ankle alphabet 1x 7: LAQ 5# ankle weight 3x10 Skilled Intervention: Patient was educated in proper exercise technique and purpose for exercises. Skilled judgment was used in selection of appropriate interventions. Provided written instruction for home exercise program to facilitate proper performance and compliance. Correct performance of therapeutic exercises was facilitated with verbal, visual, and tactile cuing. Gait Trainin: // Bar ambulation 2x down and back WBAT cuing for heel to toe ambulation with tolerable push off 2: SPC and quad cane ambulation in // bars 3x down and back each cane with cuing for proper sizing, set up, use, and form/gait Skilled Intervention: Patient was provided supervision during pre-gait/gait training to prevent falls and insure safety. Facilitated proper gait cycle with the use of verbal and visual cues for correction of gait deviations identified in the objective section above. Skilled judgment used to assess selection, proper sizing, and proper use of assistive device. Billing Therapeutic Exercise Treatment Minutes: 35 Gait Training Treatment Minutes: 10 Skilled Treatment Time Minutes (timed and untimed codes): 45 Total Session Time (minutes): 45 Session Start Time : 1030 Session Stop Time : 1115 Wing Santiago, CHUCKY [facility] 04-25-2024 History of Presen t illness Narrative Episode Visit Count: 3 Therapist That Will Accept/Oversee The Plan Of Care: Skyler Foreman PT Start of Care Date: 04/17/24 Onset Date: 03/11/24 REHABILITATION AND SPORTS THERAPY PHYSICAL THERAPY TREATMENT NOTE ASSESSMENT: Richard Head tolerated the session with no issues. He demonstrated improvements in tolerance for strengthening and had good response to ambulation with cane today. The patient will continue to benefit from ongoing skilled physical therapy to progress toward set goals. PLAN FOR NEXT VISIT: Will discuss BFR with physician SUBJECTIVE: Patient doing well with HEP. Falcon is more sore today, unsure why. Nothing emchanical increases symptoms Pain: Pain Pain Level: 3 Pain Location: Leg - Left Description: Aching Frequency: Continuous OBJECTIVE MEASURES WITH LEVEL OF FUNCTION: LE AROM L Knee Extension: 0 Degrees L Ankle Dorsiflexion: 6 Degrees TREATMENT: Therapeutic Exercise: 1: SciFit seat 13 no reisstance x5 min (1:1 entire time. Discussed HEP and short PNE on nerve sensitivity with change in weather) 2: Quad sets with active knee extension 2x10, 2-3 sec holds 3: Gastroc stretch in long sitting with strap assist 3x30 sec 4: SLR 3x10 (minimal quad lag noted today as he fatigued) 5: Ankle circles 3x10 cw/ccw 6: Ankle alphabet 1x 7: LAQ 5# ankle weight 3x10 Skilled Intervention: Patient was educated in proper exercise technique and purpose for exercises. Skilled judgment was used in selection of appropriate interventions. Provided written instruction for home exercise program to facilitate proper performance and compliance. Correct performance of therapeutic exercises was facilitated with verbal, visual, and tactile cuing. Gait Trainin: // Bar ambulation 2x down and back WBAT cuing for heel to toe ambulation with tolerable push off 2: SPC and quad cane ambulation in // bars 3x down and back each cane with cuing for proper sizing, set up, use, and form/gait Skilled Intervention: Patient was provided supervision during pre-gait/gait training to prevent falls and insure safety. Facilitated proper gait cycle with the use of verbal and visual cues for correction of gait deviations identified in the objective section above. Skilled judgment used to assess selection, proper sizing, and proper use of assistive device. Billing Therapeutic Exercise Treatment Minutes: 35 Gait Training Treatment Minutes: 10 Skilled Treatment Time Minutes (timed and untimed codes): 45 Total Session Time (minutes): 45 Session Start Time : 1030 Session Stop Time : 1115 Wing Henderson PT documented in this encounter [facility] 04-22-2024 Note HNO ID: [id number] Author: WING HENDERSON PT Service: ? Author Type: Physical Therapist Type: Progress Notes Filed: 04/22/2024 14:34 Note Text: Episode Visit Count: 2 Therapist That Will Accept/Oversee The Plan Of Care: Sykler Foreman PT Start of Care Date: 04/17/24 Onset Date: 03/11/24 REHABILITATION AND SPORTS THERAPY PHYSICAL THERAPY TREATMENT NOTE ASSESSMENT: Richard Head tolerated the session with no issues. He demonstrated difficulty with quad lag with SLR and poor ankle range of motion and issues with LLE swelling today. The patient will continue to benefit from ongoing skilled physical therapy to progress toward set goals. PLAN FOR NEXT VISIT: SUBJECTIVE: Patient with no issues since seeing Skyler last week. Notes that he is worried about work as he is only guaranteed a job until May 11. This is weighing heavily on him. Functionally he is walking about 4k ft a day in his home. No increased pain but fatigue and some soreness noted that eases up later on Pain: Pain Pain Level: 2 Pain Location: Leg - Left Description: Aching OBJECTIVE MEASURES WITH LEVEL OF FUNCTION: LE AROM L Knee Extension: -2 Degrees L Ankle Dorsiflexion: -3 Degrees L Ankle Plantar Flexion: 35 Degrees L Ankle Inversion: 15 L Ankle Eversion: 10 TREATMENT: Therapeutic Exercise: 1: Discussed continuing Standing hip abduction, DF/PF, and squats from home care HEP 2: *SLR 3x10 (cuing for forceful quad contraction to prevent lag) 3: *LAQ 3x10, 2-3 sec hold at end range for forceful quad contraction 4: *Ankle circles 3x10 cw/ccw 5: *Ankle alphabet 3x 6: *Gastroc stretch in long sitting with strap assist 3x30 sec 7: Quad sets with active knee extension 2x10, 2-3 sec holds Skilled Intervention: Patient was educated in proper exercise technique and purpose for exercises. Skilled judgment was used in selection of appropriate interventions. Provided written instruction for home exercise program to facilitate proper performance and compliance. Correct performance of therapeutic exercises was facilitated with verbal, visual, and tactile cuing. Billing Therapeutic Exercise Treatment Minutes: 39 Skilled Treatment Time Minutes (timed and untimed codes): 39 Total Session Time (minutes): 39 Session Start Time : 1236 Session Stop Time : 1315 Wing Henderson PT [facility] 04-22-2024 History of Presen t illness Narrative Episode Visit Count: 2 Therapist That Will Accept/Oversee The Plan Of Care: Skyler Foreman PT Start of Care Date: 04/17/24 Onset Date: 03/11/24 REHABILITATION AND SPORTS THERAPY PHYSICAL THERAPY TREATMENT NOTE ASSESSMENT: Richard Cecelia Head tolerated the session with no issues. He demonstrated difficulty with quad lag with SLR and poor ankle range of motion and issues with LLE swelling today. The patient will continue to benefit from ongoing skilled physical therapy to progress toward set goals. PLAN FOR NEXT VISIT: SUBJECTIVE: Patient with no issues since seeing Skyler last week. Notes that he is worried about work as he is only guaranteed a job until May 11. This is weighing heavily on him. Functionally he is walking about 4k ft a day in his home. No increased pain but fatigue and some soreness noted that eases up later on Pain: Pain Pain Level: 2 Pain Location: Leg - Left Description: Aching OBJECTIVE MEASURES WITH LEVEL OF FUNCTION: LE AROM L Knee Extension: -2 Degrees L Ankle Dorsiflexion: -3 Degrees L Ankle Plantar Flexion: 35 Degrees L Ankle Inversion: 15 L Ankle Eversion: 10 TREATMENT: Therapeutic Exercise: 1: Discussed continuing Standing hip abduction, DF/PF, and squats from home care HEP 2: *SLR 3x10 (cuing for forceful quad contraction to prevent lag) 3: *LAQ 3x10, 2-3 sec hold at end range for forceful quad contraction 4: *Ankle circles 3x10 cw/ccw 5: *Ankle alphabet 3x 6: *Gastroc stretch in long sitting with strap assist 3x30 sec 7: Quad sets with active knee extension 2x10, 2-3 sec holds Skilled Intervention: Patient was educated in proper exercise technique and purpose for exercises. Skilled judgment was used in selection of appropriate interventions. Provided written instruction for home exercise program to facilitate proper performance and compliance. Correct performance of therapeutic exercises was facilitated with verbal, visual, and tactile cuing. Billing Therapeutic Exercise Treatment Minutes: 39 Skilled Treatment Time Minutes (timed and untimed codes): 39 Total Session Time (minutes): 39 Session Start Time : 1236 Session Stop Time : 1315 Wing Henderson PT Program_ID:[id number] Access Code: [email or web address] URL: [email or web address] Date: 04-22-2024 Prepared By: Skyler Foreman Program Notes Exercises - Supine Knee Extension Stretch on Towel Roll - 1 x daily - 7 x weekly - 4 sets - 10 reps - Standing Tandem Balance with Counter Support - 1 x daily - 7 x weekly - 5 sets - reps - Supine Ankle Circles - 1 x daily - 7 x weekly - 3 sets - 10 reps - Seated Ankle Alphabet - 1 x daily - 7 x weekly - 3 sets - 10 reps - Long Sitting Calf Stretch with Strap - 1 x daily - 7 x weekly - 3 sets - 3 reps - Seated Long Arc Quad - 1 x daily - 7 x weekly - 3 sets - 10 reps - Active Straight Leg Raise with Quad Set - 1 x daily - 7 x weekly - 3 sets - 10 reps documented in this encounter [facility] 04-17-2024 History of Presen t illness Narrative Program_ID:[id number] Access Code: [email or web address] URL: [email or web address] Date: 04-17-2024 Prepared By: Skyler Foreman Program Notes Exercises - Supine Knee Extension Stretch on Towel Roll - 1 x daily - 7 x weekly - 4 sets - 10 reps - Standing Tandem Balance with Counter Support - 1 x daily - 7 x weekly - 5 sets - reps Images from the original note were not included. Episode Visit Count: 1 Therapist That Will Accept/Oversee The Plan Of Care: Skyler Foreman PT Start of Care Date: 04/17/24 Onset Date: 03/11/24 Patient Identified by Name and Date of : Yes REHABILITATION AND SPORTS THERAPY PHYSICAL THERAPY EVALUATION PLAN OF CARE: Assessment: Richard Head presents with diagnosis of post op intermedullary nail placement on the LLE on 03/11/2024 that interferes with walking, working, stair negotiation . The patient presents with impairments in ADL's, gait, independence in exercise, overall function, range of motion, and strength. PROMIS (Patient-Reported Outcomes Measurement Information System) scores were reviewed and identified as a rehabilitation concern. Prognosis for therapy is Good due to: current objective clinical presentation . The patient will benefit from skilled therapy services to meet the goals established for this plan of care as noted below. Goals for Episode of Care: established 04/17/24 Gosper in home exercise program. Perform squats, kneeling, and walking without pain. Increase ROM of L knee to 0-130 degrees of flexion for improved gait quality and stability with ADL's Increased strength of LLE to 5/5 for return to work Normal gait. Reciprocal stair negotiation. Patient Goals: Return to work Time Frame for Goals and Treatment : 07/10/24 Planned Interventions, Frequency, and Duration: Current Frequency: 2x/week Duration: 4 weeks Total Number of Visits Planned: 8 Planned Treatment Interventions: Therapeutic exercise (83145), Neuromuscular re-education (20791), Manual therapy (57545), Therapeutic activities (61649), Self-snf management (71649), Gait Training (22346), Patient/Family/Caregiver Education PLAN FOR NEXT VISIT: LE strengthening at parallel bars. Work on knee flexion and extension ROM. Patient demonstrates good understanding of plan of care and treatment. The above goals and plan of care were discussed and agreed upon by patient/family. SUBJECTIVE: Intermedullary bettie in the tibia due to injury. Injury from cutting a tree which the tree then flung and hit him in the leg. This fractured the leg. Has had home PT. Using a FWW to get around. Scheduled to go back to work may 11. 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 Patient Goals: Return to work Functional Limitations: walking, working, stair negotiation Prior Level of Function: Independent without limitations Intake Information: Prescription present Pain: Pain Pain Level: 3 Pain Location: Leg - Left Description: Aching PROMIS Scales 04/16/2024 03/24/2024 Higher is Better Phys Func - Score 23 (severe dysfunction) Phys Func - Percentile 0 Self-Eff Symptom - Score 36 (Low) Self-Eff Symptom - Percentile 8 T-scores: mean of general population = 50. 5 points is clinically meaningfully difference Percentiles provide an indication of how the patient's score ranks in relation to the general population. Higher percentile rankings indicate better function/quality of life. 50th percentile is the average of the general population and indicates half of respondents had a worse score. OBJECTIVE MEASURES WITH LEVEL OF FUNCTION: LE AROM L Knee Extension: -3 Degrees L Knee Flexion: 105 Degrees LE Strength L Hip Extension: 4/5 L Hip Flexion (L2): 4/5 L Hip ABduction: 3+/5 L Knee Extension (L3): 3+/5 L Ankle Dorsiflexion (L4): 4/5 Gait Weight Bearing Status: WBAT Gait: Modified Independent Gait Distance (feet): 20 Gait Device: Wheeled Walker Gait Deviations: Left Lower Extremity Gait Deviations Left Lower Extremity: Weight bearing decreased, Step length decreased, Stance time decreased Functional Performance Test Results 30 Second Chair Stand Test: 0 reps Education: Education Learning Preferences: Demonstration, Explanation, Performance, Printed Materials Barriers: None Learning/educational needs: Home exercise program, Plan of Care, Changes in Plan of Care Education Provided: Yes, see treatment interventions for education provided Education Provided To: Patient Education Mode/Type: Demonstration, Explanation/Discussion, Literature/Printed Materials, Performance Response to Education/Teach Back: States/Identifies, Return Demonstration TREATMENT: PT Treatment Interventions: Therapeutic Exercise Evaluation Therapeutic Exercise: 1: Discussed exam findings, purpose of the HEP and the HEP handout was provided to the pt. HEP discussed in detail with how to safely and properly perform each therapeutic exercise. 2: Knee ext stretch on table x 10 holding 5 sec each 3: Tandem stance at countertop (LLE behind) x 30 sec Skilled Intervention: Patient was educated in proper exercise technique and purpose for exercises. Provided written instruction for home exercise program to facilitate proper performance and compliance. Correct performance of therapeutic exercises was facilitated with verbal and visual cuing. Billing * Evaluation Low Complexity: 1 Unit Therapeutic Exercise Treatment Minutes: 12 Skilled Treatment Time Minutes (timed and untimed codes): 47 Total Session Time (minutes): 47 Session Start Time : 1206 Session Stop Time : 1253 Skyler Foreman PT documented in this encounter [facility] 04-17-2024 Note HNO ID: [id number] Author: SKYLER FOREMAN PT Service: ? Author Type: Physical Therapist Type: Progress Notes Filed: 04/17/2024 13:42 Note Text: Episode Visit Count: 1 Therapist That Will Accept/Oversee The Plan Of Care: Skyler Foreman PT Start of Care Date: 04/17/24 Onset Date: 03/11/24 Patient Identified by Name and Date of : Yes REHABILITATION AND SPORTS THERAPY PHYSICAL THERAPY EVALUATION PLAN OF CARE: Assessment: Richard Head presents with diagnosis of post op intermedullary nail placement on the LLE on 03/11/2024 that interferes with walking, working, stair negotiation . The patient presents with impairments in ADL's, gait, independence in exercise, overall function, range of motion, and strength. PROMIS? (Patient-Reported Outcomes Measurement Information System) scores were reviewed and identified as a rehabilitation concern. Prognosis for therapy is Good due to: current objective clinical presentation . The patient will benefit from skilled therapy services to meet the goals established for this plan of care as noted below. Goals for Episode of Care: established 04/17/24 Gosper in home exercise program. Perform squats, kneeling, and walking without pain. Increase ROM of L knee to 0-130 degrees of flexion for improved gait quality and stability with ADL's Increased strength of LLE to 5/5 for return to work Normal gait. Reciprocal stair negotiation. Patient Goals: Return to work Time Frame for Goals and Treatment : 07/10/24 Planned Interventions, Frequency, and Duration: Current Frequency: 2x/week Duration: 4 weeks Total Number of Visits Planned: 8 Planned Treatment Interventions: Therapeutic exercise (27268), Neuromuscular re-education (39324), Manual therapy (26288), Therapeutic activities (58073), Self-snf management (96714), Gait Training (53347), Patient/Family/Caregiver Education PLAN FOR NEXT VISIT: LE strengthening at parallel bars. Work on knee flexion and extension ROM. Patient demonstrates good understanding of plan of care and treatment. The above goals and plan of care were discussed and agreed upon by patient/family. SUBJECTIVE: Intermedullary bettie in the tibia due to injury. Injury from cutting a tree which the tree then flung and hit him in the leg. This fractured the leg. Has had home PT. Using a FWW to get around. Scheduled to go back to work may 11. 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 Patient Goals: Return to work Functional Limitations: walking, working, stair negotiation Prior Level of Function: Independent without limitations Intake Information: Prescription present Pain: Pain Pain Level: 3 Pain Location: Leg - Left Description: Aching PROMIS Scales 04/16/2024 03/24/2024 Higher is Better Phys Func - Score 23 (severe dysfunction) Phys Func - Percentile 0 Self-Eff Symptom - Score 36 (Low) Self-Eff Symptom - Percentile 8 T-scores: mean of general population = 50. 5 points is clinically meaningfully difference Percentiles provide an indication of how the patient's score ranks in relation to the general population. Higher percentile rankings indicate better function/quality of life. 50th percentile is the average of the general population and indicates half of respondents had a worse score. OBJECTIVE MEASURES WITH LEVEL OF FUNCTION: LE AROM L Knee Extension: -3 Degrees L Knee Flexion: 105 Degrees LE Strength L Hip Extension: 4/5 L Hip Flexion (L2): 4/5 L Hip ABduction: 3+/5 L Knee Extension (L3): 3+/5 L Ankle Dorsiflexion (L4): 4/5 Gait Weight Bearing Status: WBAT Gait: Modified Independent Gait Distance (feet): 20 Gait Device: Wheeled Walker Gait Deviations: Left Lower Extremity Gait Deviations Left Lower Extremity: Weight bearing decreased, Step length decreased, Stance time decreased Functional Performance Test Results 30 Second Chair Stand Test: 0 reps Education: Education Learning Preferences: Demonstration, Explanation, Performance, Printed Materials Barriers: None Learning/educational needs: Home exercise program, Plan of Care, Changes in Plan of Care Education Provided: Yes, see treatment interventions for education provided Education Provided To: Patient Education Mode/Type: Demonstration, Explanation/Discussion, Literature/Printed Materials, Performance Response to Education/Teach Back: States/Identifies, Return Demonstration TREATMENT: PT Treatment Interventions: Therapeutic Exercise Evaluation Therapeutic Exercise: 1: Discussed exam findings, purpose of the HEP and the HEP handout was provided to the pt. HEP discussed in detail with how to safely and properly perform each therapeutic exercise. 2: Knee ext stretch on table x 10 holding 5 sec each 3: Tandem stance at countertop (LLE behind) x 30 sec Skilled Intervention: Patient was educated in proper exercise technique and purpose for exercises (more content not included)... [facility] 04-10-2024 Miscellaneous Notes SITUATION: spouse present during today's visit. patient reports the following since the last homecare visit: medications/allergies--no changes, no fall. patient reports he is increasing his walking and using the crutch about 50% of the time: BACKGROUND: Diagnoses (reason for Home Care): Diagnoses (reason for Home Care): Encounter for other orthopedic aftercare SURGERY/PROCEDURE(S): 1) Insertion of a Left Intramedullary Tibial Nail for a Segmental Left Tibial Shaft Fracture (CPT 74011) 2) Closed Treatment of Left Proximal Fibula Fracture with Manipulation (CPT 94981 Weight Bearing/Precaution Changes: no changes ASSESSMENT: Focus of visit increased reps w/ all exercises. Patient able to perform LLE WB exercises w/ decreased UE support today. Verbal and tactile cues throughout for equal WB. Gait training w/ 1 crutch w/ verbal and tactile cues to encourage weight shifting onto LLE/ AAROM left knee 95. Remians tight in ankle ROM. Patirnt has good understanding of HEP and is scheduled to start OP PT next week Physical therapy discharged: goals achieved. Functional performance at discharge - bed mobility independent, transfers independent, ambulation independent and stairs supervision. Plan of care, goals, and discharge reviewed and agreed upon with patient and/or caregiver. RECOMMENDATION: Patient discharged from home health services. Instructions to include:begin outpatient therapy on 04/17/24 See intervention summary for intervention/education details. documented in this encounter [facility] 04-10-2024 Patient's home Note SITUATION: spouse present during today's visit. patient reports the following since the last homecare visit: medications/allergies--no changes, no fall. patient reports he is increasing his walking and using the crutch about 50% of the time: BACKGROUND: Diagnoses (reason for Home Care): Diagnoses (reason for Home Care): Encounter for other orthopedic aftercare SURGERY/PROCEDURE(S): 1) Insertion of a Left Intramedullary Tibial Nail for a Segmental Left Tibial Shaft Fracture (CPT 10749) 2) Closed Treatment of Left Proximal Fibula Fracture with Manipulation (CPT 93037 Weight Bearing/Precaution Changes: no changes ASSESSMENT: Focus of visit increased reps w/ all exercises. Patient able to perform LLE WB exercises w/ decreased UE support today. Verbal and tactile cues throughout for equal WB. Gait training w/ 1 crutch w/ verbal and tactile cues to encourage weight shifting onto LLE/ AAROM left knee 95. Remians tight in ankle ROM. Patirnt has good understanding of HEP and is scheduled to start OP PT next week Physical therapy discharged: goals achieved. Functional performance at discharge - bed mobility independent, transfers independent, ambulation independent and stairs supervision. Plan of care, goals, and discharge reviewed and agreed upon with patient and/or caregiver. RECOMMENDATION: Patient discharged from home health services. Instructions to include:begin outpatient therapy on 04/17/24 See intervention summary for intervention/education details. [facility] Work Phone: 04-07-2024 Miscellaneous Notes SITUATION: spouse present during today's visit. patient reports the following since the last homecare visit: medications/allergies--no changes, no fall. patient reports he is increasing his walking but still using walker. Does not feel safe w/ 1 crutch. BACKGROUND: Diagnoses (reason for Home Care): Diagnoses (reason for Home Care): Encounter for other orthopedic aftercare SURGERY/PROCEDURE(S): 1) Insertion of a Left Intramedullary Tibial Nail for a Segmental Left Tibial Shaft Fracture (CPT 91817) 2) Closed Treatment of Left Proximal Fibula Fracture with Manipulation (CPT 61999 Weight Bearing/Precaution Changes: no changes ASSESSMENT: Focus of visit increased reps w/ all exercises. Patient able to perform LLE WB exercises w/ decreased UE support today. Verbal and tactile cues throughout for equal WB. Gait training w/ 1 crutch w/ verbal and tactile cues to encourage weight shifting onto LLE/ AAROM left knee 95. Remians tight in ankle ROM. Patirnt has good understanding of HEP and is scheduled to start OP PT next week Plan of care, goals, and visit frequency reviewed and agreed upon with patient and/or caregiver. Current Discharge Plan: outpatient rehab Anticipate discharge by 04/10/24 RECOMMENDATION: Next visit to focus on PT to see for DC See intervention summary for intervention/education details. documented in this encounter [facility] 04-07-2024 Patient's home Note SITUATION: spouse present during today's visit. patient reports the following since the last homecare visit: medications/allergies--no changes, no fall. patient reports he is increasing his walking but still using walker. Does not feel safe w/ 1 crutch. BACKGROUND: Diagnoses (reason for Home Care): Diagnoses (reason for Home Care): Encounter for other orthopedic aftercare SURGERY/PROCEDURE(S): 1) Insertion of a Left Intramedullary Tibial Nail for a Segmental Left Tibial Shaft Fracture (CPT 51177) 2) Closed Treatment of Left Proximal Fibula Fracture with Manipulation (CPT 33336 Weight Bearing/Precaution Changes: no changes ASSESSMENT: Focus of visit increased reps w/ all exercises. Patient able to perform LLE WB exercises w/ decreased UE support today. Verbal and tactile cues throughout for equal WB. Gait training w/ 1 crutch w/ verbal and tactile cues to encourage weight shifting onto LLE/ AAROM left knee 95. Remians tight in ankle ROM. Patirnt has good understanding of HEP and is scheduled to start OP PT next week Plan of care, goals, and visit frequency reviewed and agreed upon with patient and/or caregiver. Current Discharge Plan: outpatient rehab Anticipate discharge by 04/10/24 RECOMMENDATION: Next visit to focus on PT to see for DC See intervention summary for intervention/education details. [facility] Work Phone: 04-04-2024 Miscellaneous Notes SITUATION: spouse present during today's visit. patient reports the following since the last homecare visit: medications/allergies--no changes, no fall. patient reports he has not been able to do the LLE WB exercises due to fear but has been doing all the other exercises. BACKGROUND: Diagnoses (reason for Home Care): Encounter for other orthopedic aftercare SURGERY/PROCEDURE(S): 1) Insertion of a Left Intramedullary Tibial Nail for a Segmental Left Tibial Shaft Fracture (CPT 69329) 2) Closed Treatment of Left Proximal Fibula Fracture with Manipulation (CPT 63103 Weight Bearing/Precaution Changes: no changes ASSESSMENT: Focus of visit performed amadou standing exercises w/ much encouragment for LLE WB. Denies increased pain but very anxious. progressed to 1 crutch ambulation for household distances PROM left knee 94 Patient is progressing well but remains very challenged w/ LLE WB Plan of care, goals, and visit frequency reviewed and agreed upon with patient and/or caregiver. Current Discharge Plan: outpatient rehab Anticipate discharge by TBD RECOMMENDATION: Next visit to focus on LLE WB activities See intervention summary for intervention/education details. documented in this encounter [facility] 04-04-2024 Patient's home Note SITUATION: spouse present during today's visit. patient reports the following since the last homecare visit: medications/allergies--no changes, no fall. patient reports he has not been able to do the LLE WB exercises due to fear but has been doing all the other exercises. BACKGROUND: Diagnoses (reason for Home Care): Encounter for other orthopedic aftercare SURGERY/PROCEDURE(S): 1) Insertion of a Left Intramedullary Tibial Nail for a Segmental Left Tibial Shaft Fracture (CPT 12647) 2) Closed Treatment of Left Proximal Fibula Fracture with Manipulation (CPT 32141 Weight Bearing/Precaution Changes: no changes ASSESSMENT: Focus of visit performed amadou standing exercises w/ much encouragment for LLE WB. Denies increased pain but very anxious. progressed to 1 crutch ambulation for household distances PROM left knee 94 Patient is progressing well but remains very challenged w/ LLE WB Plan of care, goals, and visit frequency reviewed and agreed upon with patient and/or caregiver. Current Discharge Plan: outpatient rehab Anticipate discharge by TBD RECOMMENDATION: Next visit to focus on LLE WB activities See intervention summary for intervention/education details. [facility] Work Phone: 04-02-2024 Note Addended by: CARISA JUAN on: 04/02/2024 01:35 PM Modules accepted: Orders [facility] 04-02-2024 Miscellaneous Notes Addended by: CARISA BURCH on: 04/02/2024 01:35 PM Modules accepted: Orders Good morning. Patient will be finishing up his home care PT next week and will be transitioning to OP PT. Can you please put in those orders so we can get that set up for him? Thanks documented in this encounter [facility] 04-02-2024 Telephone encounter Note Good morning. Patient will be finishing up his home care PT next week and will be transitioning to OP PT. Can you please put in those orders so we can get that set up for him? Thanks [facility] Work Phone: 04-02-2024 Miscellaneous Notes SITUATION: spouse present during today's visit. patient reports the following since the last homecare visit: medications/allergies--no changes, no fall. patient reports Dr mueller went ok. Xrays showed good healing. . BACKGROUND: Diagnoses (reason for Home Care): Encounter for other orthopedic aftercare SURGERY/PROCEDURE(S): 1) Insertion of a Left Intramedullary Tibial Nail for a Segmental Left Tibial Shaft Fracture (CPT 48945) 2) Closed Treatment of Left Proximal Fibula Fracture with Manipulation (CPT 40311 Weight Bearing/Precaution Changes: no changes ASSESSMENT: Focus of visit progressed to Amadou standing exercises for HEP. Patient hesitent w/ LLE WB but did well w/ encouragement. Reported decreased tightness after. AAROM left knee 80, PROM 84.Gait training w/ww w/ focues on weight shifting and increased stride length. Scheduled OP PT Plan of care, goals, and visit frequency reviewed and agreed upon with patient and/or caregiver. Current Discharge Plan: outpatient rehab Anticipate discharge by 04/10/24 RECOMMENDATION: Next visit to focus on possib;y try 1 crutch ambulation See intervention summary for intervention/education details. documented in this encounter [facility] 04-02-2024 Patient's home Note SITUATION: spouse present during today's visit. patient reports the following since the last homecare visit: medications/allergies--no changes, no fall. patient reports Dr mueller went ok. Xrays showed good healing. . BACKGROUND: Diagnoses (reason for Home Care): Encounter for other orthopedic aftercare SURGERY/PROCEDURE(S): 1) Insertion of a Left Intramedullary Tibial Nail for a Segmental Left Tibial Shaft Fracture (CPT 85565) 2) Closed Treatment of Left Proximal Fibula Fracture with Manipulation (CPT 71752 Weight Bearing/Precaution Changes: no changes ASSESSMENT: Focus of visit progressed to Amadou standing exercises for HEP. Patient hesitent w/ LLE WB but did well w/ encouragement. Reported decreased tightness after. AAROM left knee 80, PROM 84.Gait training w/ww w/ focues on weight shifting and increased stride length. Scheduled OP PT Plan of care, goals, and visit frequency reviewed and agreed upon with patient and/or caregiver. Current Discharge Plan: outpatient rehab Anticipate discharge by 04/10/24 RECOMMENDATION: Next visit to focus on possib;y try 1 crutch ambulation See intervention summary for intervention/education details. [facility] Work Phone: 03-31-2024 History of Presen t illness Narrative Images from the original note were not included. ORTHOPAEDIC SURGERY OFFICE NOTE: SURGERY DATE: 1) 03/12/2024 SURGERY: 1) Insertion of a Left Intramedullary Tibial Nail for a Left Segmental Tibial Shaft Fracture CHIEF COMPLAINT: Routine Post-Operative Follow-Up HISTORY OF PRESENT ILLNESS: Richard Head is a 58 year old male who presents for routine post-operative follow-up from the above listed operation (see Surgery above for full details). At today's appointment, the patient reports doing relatively well. The patient endorses controlled pain to the left lower leg. The patient is ambulatory with a walker. The patient is participating in physical therapy. The patient denies fevers and chills. The patient has no additional orthopaedic traumatic complaints at this time. Reviewed nursing note and current pain scale. History reviewed. No pertinent past medical history. History reviewed. No pertinent surgical history. History reviewed. No pertinent family history. Social History Tobacco Use Smoking status: Never Smokeless tobacco: Never Substance Use Topics Alcohol use: Never Drug use: Never MEDICATIONS: Current Outpatient Medications Medication Sig cholecalciferol, vitamin D3, (VITAMIN D3 ORAL) Take 1 tablet by mouth once daily. MULTIVITAMIN ORAL Take 1 tablet by mouth once daily. aspirin, enteric coated (ASPIRIN, ENTERIC COATED) 81 mg EC tablet Take 1 tablet by mouth two times a day for 14 days. ONCE TWO TIMES A DAY DOSING COMPLETED, THEN OKAY TO RESUME DAILY HOME DOSE aspirin, enteric coated (ASPIRIN, ENTERIC COATED) 81 mg EC tablet Take 81 mg by mouth once daily. naproxen (NAPROSYN) 250 mg tablet Take 500 mg by mouth once daily as needed (pain). Patient should start on March 20, 2024. docosahexaenoic acid/epa (FISH OIL ORAL) Take 2 tablets by mouth once daily. No current facility-administered medications for this visit. ALLERGIES: ALLERGIES No Known Allergies PHYSICAL EXAMINATION: Resp 16 Ht 5' 8 (1.73m) Wt 209 lb (94.8kg) BMI 31.79 kg/(m^2). General Appearance: No acute distress Skin: See Extremity exam below for full details Left Lower Extremity: Healing surgical incisions to the left lower leg. There is no shannan-incisional erythema nor drainage. Compartments of the thigh and leg are soft and compressible. The patient has active knee flexion, knee extension, ankle dorsiflexion, ankle plantarflexion and extensor hallucis longus motor function. Sensation intact to light touch in the sural, saphenous, superficial peroneal, deep peroneal and tibial nerve distributions. Brisk capillary refill to the digits of the foot. IMAGES: Recent Results (from the past 36 hour(s)) XR TIBIA FIBULA 2V AP/LAT LEFT Narrative 2-view left tibia/fibula x-rays demonstrate maintained reduction of the segmental tibial shaft fracture with intact orthopaedic implants. ASSESSMENT AND PLAN: 1. Closed complex fracture of left tibia with routine healing, subsequent encounter - ICD9: V54.16, ICD10: S82.292D -2-view left tibia/fibula x-rays ordered, obtained and independently interpreted (see image interpretation above for full details) -Weight-bearing as tolerated with the left lower extremity -Ambulation assistance devices as needed for safe mobilization -Pain control with NSAIDs and acetaminophen as needed -Ice and elevation of the left lower extremity for pain control and swelling reduction -Incisional care: the patient may participate in hygiene (avoid soaking/saturation for an additional 2 weeks) -Physical therapy/home exercises for continued rehabilitation -The patient will follow-up in 12 weeks or sooner if needed OARRS reviewed All patient and family questions and concerns were answered and addressed Carisa Burch MD Orthopaedic Trauma Surgery 03/31/2024 3:16 PM documented in this encounter [facility] 03-31-2024 Note HNO ID: [id number] Author: CARISA BURCH MD Service: ? Author Type: Physician Type: Progress Notes Filed: 03/31/2024 15:17 Note Text: ORTHOPAEDIC SURGERY OFFICE NOTE: SURGERY DATE: 1) 03/12/2024 SURGERY: 1) Insertion of a Left Intramedullary Tibial Nail for a Left Segmental Tibial Shaft Fracture CHIEF COMPLAINT: Routine Post-Operative Follow-Up HISTORY OF PRESENT ILLNESS: Richard Head is a 58 year old male who presents for routine post-operative follow-up from the above listed operation (see Surgery above for full details). At today's appointment, the patient reports doing relatively well. The patient endorses controlled pain to the left lower leg. The patient is ambulatory with a walker. The patient is participating in physical therapy. The patient denies fevers and chills. The patient has no additional orthopaedic traumatic complaints at this time. Reviewed nursing note and current pain scale. History reviewed. No pertinent past medical history. History reviewed. No pertinent surgical history. History reviewed. No pertinent family history. Social History Tobacco Use Smoking status: Never Smokeless tobacco: Never Substance Use Topics Alcohol use: Never Drug use: Never MEDICATIONS: Current Outpatient Medications Medication Sig cholecalciferol, vitamin D3, (VITAMIN D3 ORAL) Take 1 tablet by mouth once daily. MULTIVITAMIN ORAL Take 1 tablet by mouth once daily. aspirin, enteric coated (ASPIRIN, ENTERIC COATED) 81 mg EC tablet Take 1 tablet by mouth two times a day for 14 days. ONCE TWO TIMES A DAY DOSING COMPLETED, THEN OKAY TO RESUME DAILY HOME DOSE aspirin, enteric coated (ASPIRIN, ENTERIC COATED) 81 mg EC tablet Take 81 mg by mouth once daily. naproxen (NAPROSYN) 250 mg tablet Take 500 mg by mouth once daily as needed (pain). Patient should start on March 20, 2024. docosahexaenoic acid/epa (FISH OIL ORAL) Take 2 tablets by mouth once daily. No current facility-administered medications for this visit. ALLERGIES: ALLERGIES No Known Allergies PHYSICAL EXAMINATION: Resp 16 Ht 5' 8 (1.73m) Wt 209 lb (94.8kg) BMI 31.79 kg/(m2). General Appearance: No acute distress Skin: See Extremity exam below for full details Left Lower Extremity: Healing surgical incisions to the left lower leg. There is no shannan-incisional erythema nor drainage. Compartments of the thigh and leg are soft and compressible. The patient has active knee flexion, knee extension, ankle dorsiflexion, ankle plantarflexion and extensor hallucis longus motor function. Sensation intact to light touch in the sural, saphenous, superficial peroneal, deep peroneal and tibial nerve distributions. Brisk capillary refill to the digits of the foot. IMAGES: Recent Results (from the past 36 hour(s)) XR TIBIA FIBULA 2V AP/LAT LEFT Narrative 2-view left tibia/fibula x-rays demonstrate maintained reduction of the segmental tibial shaft fracture with intact orthopaedic implants. ASSESSMENT AND PLAN: 1. Closed complex fracture of left tibia with routine healing, subsequent encounter - ICD9: V54.16, ICD10: S82.292D -2-view left tibia/fibula x-rays ordered, obtained and independently interpreted (see image interpretation above for full details) -Weight-bearing as tolerated with the left lower extremity -Ambulation assistance devices as needed for safe mobilization -Pain control with NSAIDs and acetaminophen as needed -Ice and elevation of the left lower extremity for pain control and swelling reduction -Incisional care: the patient may participate in hygiene (avoid soaking/saturation for an additional 2 weeks) -Physical therapy/home exercises for continued rehabilitation -The patient will follow-up in 12 weeks or sooner if needed OARRS reviewed All patient and family questions and concerns were answered and addressed Carisa Burch MD Orthopaedic Trauma Surgery 03/31/2024 3:16 PM [facility] 03-27-2024 Miscellaneous Notes SITUATION: spouse present during today's visit. patient reports the following since the last homecare visit: medications/allergies--no changes, no fall. patient reports he feels like he is not making any progress. knee and calf are very tight. BACKGROUND: Diagnoses (reason for Home Care): Encounter for other orthopedic aftercare SURGERY/PROCEDURE(S): 1) Insertion of a Left Intramedullary Tibial Nail for a Segmental Left Tibial Shaft Fracture (CPT 48134) 2) Closed Treatment of Left Proximal Fibula Fracture with Manipulation Weight Bearing/Precaution Changes: no changes ASSESSMENT: Focus of visit gait training w/ ww w/ fous on heel to toe and increased step length. Stair training to enter/exit home. ROM and strength exercises for HEP. Responded well to step flexion stretch and reported decreased calf and thight tightness after. Plan of care, goals, and visit frequency reviewed and agreed upon with patient and/or caregiver. Current Discharge Plan: outpatient rehab Anticipate discharge by 04/10/24 RECOMMENDATION: Next visit to focus on add standing hip abd and flexion See intervention summary for intervention/education details. documented in this encounter [facility] 03-27-2024 Patient's home Note SITUATION: spouse present during today's visit. patient reports the following since the last homecare visit: medications/allergies--no changes, no fall. patient reports he feels like he is not making any progress. knee and calf are very tight. BACKGROUND: Diagnoses (reason for Home Care): Encounter for other orthopedic aftercare SURGERY/PROCEDURE(S): 1) Insertion of a Left Intramedullary Tibial Nail for a Segmental Left Tibial Shaft Fracture (CPT 46419) 2) Closed Treatment of Left Proximal Fibula Fracture with Manipulation Weight Bearing/Precaution Changes: no changes ASSESSMENT: Focus of visit gait training w/ ww w/ fous on heel to toe and increased step length. Stair training to enter/exit home. ROM and strength exercises for HEP. Responded well to step flexion stretch and reported decreased calf and thight tightness after. Plan of care, goals, and visit frequency reviewed and agreed upon with patient and/or caregiver. Current Discharge Plan: outpatient rehab Anticipate discharge by 04/10/24 RECOMMENDATION: Next visit to focus on add standing hip abd and flexion See intervention summary for intervention/education details. [facility] Work Phone: 03-24-2024 Miscellaneous Notes SITUATION: Retirement Eval completed today. spouse also present during today's visit. The patient reports the following: Allergies--reviewed Medications--Accurate medication list present in home Falls--none DME-Reviewed with no changes BACKGROUND: Reason for SN eval: suture removal ASSESSMENT: Patient is alert and oriented x4. Patient appears in no acute distress. Patient lives at home with . Home environment is cluttered and has pets: dog, cat. Patient/CG concerns verbalized today: scared for suture removal Vitals (see flow sheet for details):stable SN findings today: Pt doing well today. Pt concerned about pain with suture removal- SN offered emotional support. Post op silverlon bandage removed from left thigh per order and incision is non-draining, well approximated with steri strips in place. Sn educated per orders that he was allowed to shower and use soap and water but no lotions or soaking. Pt and CG verbilized understanding. Sn removed sutures from LLE without complications. All areas well approximated with no s&s or drainage to any area. URBANO wrap reapplied to LLE after suture removal. No further questions or concerns noted. See intervention summary for education details. SN Plan of Care developed and reviewed with patient and caregiver and agreed with plan of care. RECOMMENDATION: Visit Frequency: 1w1 documented in this encounter [facility] 03-24-2024 Procedure note SITUATION: Retirement Eval completed today. spouse also present during today's visit. The patient reports the following: Allergies--reviewed Medications--Accurate medication list present in home Falls--none DME-Reviewed with no changes BACKGROUND: Reason for SN eval: suture removal ASSESSMENT: Patient is alert and oriented x4. Patient appears in no acute distress. Patient lives at home with . Home environment is cluttered and has pets: dog, cat. Patient/CG concerns verbalized today: scared for suture removal Vitals (see flow sheet for details):stable SN findings today: Pt doing well today. Pt concerned about pain with suture removal- SN offered emotional support. Post op silverlon bandage removed from left thigh per order and incision is non-draining, well approximated with steri strips in place. Sn educated per orders that he was allowed to shower and use soap and water but no lotions or soaking. Pt and CG verbilized understanding. Sn removed sutures from LLE without complications. All areas well approximated with no s&s or drainage to any area. URBANO wrap reapplied to LLE after suture removal. No further questions or concerns noted. See intervention summary for education details. SN Plan of Care developed and reviewed with patient and caregiver and agreed with plan of care. RECOMMENDATION: Visit Frequency: 1w1 [facility] Work Phone: 03-24-2024 Miscellaneous Notes SITUATION: spouse present during today's visit. patient reports the following since the last homecare visit: medications/allergies--no changes, no fall. patient reports he cannot get comfortable to sleep Reported to pt that we received orders for SN to take out his sutures today . BACKGROUND: Diagnoses (reason for Home Care): Encounter for other orthopedic aftercare SURGERY/PROCEDURE(S): 1) Insertion of a Left Intramedullary Tibial Nail for a Segmental Left Tibial Shaft Fracture (CPT 46204) 2) Closed Treatment of Left Proximal Fibula Fracture with Manipulation (CPT 91329) ACTIVE PROBLEM LIST Former Smoker Obesity, Class I, Bmi 30-34.9 SPECIFIC ORDERS PRECAUTIONS Fall Risk, Weight Bearing Restrictions Left Lower Extremity Weight Bearing Status: WBAT Surgical Site Care: Dressing changed on post op day #7, 03/18/2024. Remove on 03/23/2024. Once dressing removed okay to shower and wash with soap and water. No creams, lotions, ointments or peroxide. Reapply new 4 x 4 over incisions to lower leg with urbano wrap. Above knee incision can be left open to air. Weight Bearing/Precaution Changes: no changes ASSESSMENT: Focus of visit supine ther ex, standing wt shifting and gentle heel cord stretching , gait Plan of care, goals, and visit frequency reviewed and agreed upon with patient and/or caregiver. Current Discharge Plan: outpatient rehab Anticipate discharge by 04/12/24 RECOMMENDATION: Next visit to focus on assess toelrance to ther ex and progress accordingly , gait, ROM of ankle See intervention summary for intervention/education details. documented in this encounter [facility] 03-24-2024 Patient's home Note SITUATION: spouse present during today's visit. patient reports the following since the last homecare visit: medications/allergies--no changes, no fall. patient reports he cannot get comfortable to sleep Reported to pt that we received orders for SN to take out his sutures today . BACKGROUND: Diagnoses (reason for Home Care): Encounter for other orthopedic aftercare SURGERY/PROCEDURE(S): 1) Insertion of a Left Intramedullary Tibial Nail for a Segmental Left Tibial Shaft Fracture (CPT 94835) 2) Closed Treatment of Left Proximal Fibula Fracture with Manipulation (CPT 88382) ACTIVE PROBLEM LIST Former Smoker Obesity, Class I, Bmi 30-34.9 SPECIFIC ORDERS PRECAUTIONS Fall Risk, Weight Bearing Restrictions Left Lower Extremity Weight Bearing Status: WBAT Surgical Site Care: Dressing changed on post op day #7, 03/18/2024. Remove on 03/23/2024. Once dressing removed okay to shower and wash with soap and water. No creams, lotions, ointments or peroxide. Reapply new 4 x 4 over incisions to lower leg with urbano wrap. Above knee incision can be left open to air. Weight Bearing/Precaution Changes: no changes ASSESSMENT: Focus of visit supine ther ex, standing wt shifting and gentle heel cord stretching , gait Plan of care, goals, and visit frequency reviewed and agreed upon with patient and/or caregiver. Current Discharge Plan: outpatient rehab Anticipate discharge by 04/12/24 RECOMMENDATION: Next visit to focus on assess toelrance to ther ex and progress accordingly , gait, ROM of ankle See intervention summary for intervention/education details. [facility] Work Phone: 03-24-2024 Telephone encounter Note An order has been attached for signature. thank you, Valerie Hammonds [facility] 03-24-2024 Miscellaneous Notes An order has been attached for signature. thank you, Valerie Hammonds documented in this encounter [facility] 03-21-2024 Miscellaneous Notes Medication review completed. No ineffective drug therapy, significant side effects, significant drug interactions, duplicate drug therapy, or noncompliance with drug therapy noted. Nichole Ornelas RN documented in this encounter [facility] 03-21-2024 Patient's home Note Medication review completed. No ineffective drug therapy, significant side effects, significant drug interactions, duplicate drug therapy, or noncompliance with drug therapy noted. Nichole Ornelas RN [facility] Work Phone: 03-21-2024 Miscellaneous Notes SITUATION: only patient present during today's visit. patient reports the following since the last homecare visit: medications/allergies--no changes, no fall. BACKGROUND Diagnosis (reason for homecare ): Insertion of a Left Intramedullary Tibial Nail for a Segmental Left Tibial Shaft Fracture (CPT 03047) Closed Treatment of Left Proximal Fibula Fracture with Manipulation (CPT Prior Medical History obesity see EMR for complete medical history Weight Bearing or Precautions: WB Status: WBAT Support System: Primary Caregiver: Family Member Primary Caregiver Availability: Live in/available day/night Prior level: Independent with ambulation and Independent with ADL's ASSESSMENT Patient evaluated by [facility] occupational therapy. Reviewed and explained homecare services. Plan of care, goals and visit frequency developed, reviewed, and agreed upon with patient and/or caregiver. Patient and/or caregiver identified goals: To improve ability to take care of self. Patient benefits/has benefited from occupational therapy to address the following deficits functional activity including I/ADLs as evidenced by score on Reid Index 70/100. 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 Without OT services, patient risks prolonged dependence upon caregivers for I/ADLs and potential injury leading to a longer and more difficult recovery. Without skilled OT, patient at heightened risk for falls, functional decline, and re-hospitalization as justified with assessment findings. Environmental and skilled functional assessment completed. Deficits in function and/or knowledge identified in areas of functional activity including I/ADLs and functional transfers Occupational services provided with evaluation/reassessment: compensatory strategies and adaptive equipment/DME use Goals have been met with this visit: Yes RECOMMENDATION: Equipment/environmental recommendations transfer bench if wanting to shower; sock aid, wage analyst for LB dressing Current Discharge plan: remain in community with/without caregiver support. Anticipate discharge date: today Patient and/or caregiver verbalizes agreement to OT POC. See intervention summary for intervention/education details. documented in this encounter [facility] 03-21-2024 Patient's home Note SITUATION: only patient present during today's visit. patient reports the following since the last homecare visit: medications/allergies--no changes, no fall. BACKGROUND Diagnosis (reason for homecare ): Insertion of a Left Intramedullary Tibial Nail for a Segmental Left Tibial Shaft Fracture (CPT 29494) Closed Treatment of Left Proximal Fibula Fracture with Manipulation (CPT Prior Medical History obesity see EMR for complete medical history Weight Bearing or Precautions: WB Status: WBAT Support System: Primary Caregiver: Family Member Primary Caregiver Availability: Live in/available day/night Prior level: Independent with ambulation and Independent with ADL's ASSESSMENT Patient evaluated by [facility] occupational therapy. Reviewed and explained homecare services. Plan of care, goals and visit frequency developed, reviewed, and agreed upon with patient and/or caregiver. Patient and/or caregiver identified goals: To improve ability to take care of self. Patient benefits/has benefited from occupational therapy to address the following deficits functional activity including I/ADLs as evidenced by score on Reid Index 70/100. 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 Without OT services, patient risks prolonged dependence upon caregivers for I/ADLs and potential injury leading to a longer and more difficult recovery. Without skilled OT, patient at heightened risk for falls, functional decline, and re-hospitalization as justified with assessment findings. Environmental and skilled functional assessment completed. Deficits in function and/or knowledge identified in areas of functional activity including I/ADLs and functional transfers Occupational services provided with evaluation/reassessment: compensatory strategies and adaptive equipment/DME use Goals have been met with this visit: Yes RECOMMENDATION: Equipment/environmental recommendations transfer bench if wanting to shower; sock aid, wage analyst for LB dressing Current Discharge plan: remain in community with/without caregiver support. Anticipate discharge date: today Patient and/or caregiver verbalizes agreement to OT POC. See intervention summary for intervention/education details. [facility] Work Phone: 03-20-2024 Telephone encounter Note Dale Burch, P.T. Start of Care performed today, patient is doing well and reports pain is well controlled. Orders state to remove left upper leg bandage on 03/23/24, per discharge paperwork this bandage was applied on 03/18/24. Would it be possible to remove this bandage on 03/24/24 instead of 03/23/24? Ning Cardona PT, DPT [facility] 03-20-2024 Miscellaneous Notes Dale Burch PSantos. Start of Care performed today, patient is doing well and reports pain is well controlled. Orders state to remove left upper leg bandage on 03/23/24, per discharge paperwork this bandage was applied on 03/18/24. Would it be possible to remove this bandage on 03/24/24 instead of 03/23/24? Ning Cardona PT, DPT documented in this encounter [facility] 03-20-2024 Miscellaneous Notes SITUATION: spouse present during today's visit. patient reports he is doing pretty well. States his left leg hurts with movement. BACKGROUND: Diagnoses (reason for Home Care): Encounter for other orthopedic aftercare SURGERY/PROCEDURE(S): 1) Insertion of a Left Intramedullary Tibial Nail for a Segmental Left Tibial Shaft Fracture (CPT 08844) 2) Closed Treatment of Left Proximal Fibula Fracture with Manipulation (CPT 27299) Any one of the comorbidities from the list below may have a deleterious effect on the primary home care diagnosis.- (this is from problem list in snapshot)- . ACTIVE PROBLEM LIST Former Smoker Obesity, Class I, Bmi 30-34.9 SPECIFIC ORDERS PRECAUTIONS Fall Risk, Weight Bearing Restrictions Left Lower Extremity Weight Bearing Status: WBAT Surgical Site Care: Dressing changed on post op day #7, 03/18/2024. Remove on 03/23/2024. Once dressing removed okay to shower and wash with soap and water. No creams, lotions, ointments or peroxide. Reapply new 4 x 4 over incisions to lower leg with urbano wrap. Above knee incision can be left open to air. ASSESSMENT: Patient evaluated by [facility] physical therapy. Reviewed and explained homecare services. Plan of care, goals, and visit frequency developed, reviewed, and agreed upon with patient and/or caregiver. Patient Goal: to get back to his independent life Patient will benefit from continued physical therapy to address the following deficits: strength, balance, gait, transfers, stair negotiation and bed mobility. Current Discharge Plan: independent with home exercise program. Anticipate discharge by 04/12/24. RECOMMENDATION: Next visit to focus on pain/edema management, progress HEP and functional mobility as tolerated. Agreeable to PT and OT; declining NA. See intervention summary for intervention/education details. documented in this encounter [facility] 03-20-2024 Patient's home Note SITUATION: spouse present during today's visit. patient reports he is doing pretty well. States his left leg hurts with movement. BACKGROUND: Diagnoses (reason for Home Care): Encounter for other orthopedic aftercare SURGERY/PROCEDURE(S): 1) Insertion of a Left Intramedullary Tibial Nail for a Segmental Left Tibial Shaft Fracture (CPT 06010) 2) Closed Treatment of Left Proximal Fibula Fracture with Manipulation (CPT 15284) Any one of the comorbidities from the list below may have a deleterious effect on the primary home care diagnosis.- (this is from problem list in snapshot)- . ACTIVE PROBLEM LIST Former Smoker Obesity, Class I, Bmi 30-34.9 SPECIFIC ORDERS PRECAUTIONS Fall Risk, Weight Bearing Restrictions Left Lower Extremity Weight Bearing Status: WBAT Surgical Site Care: Dressing changed on post op day #7, 03/18/2024. Remove on 03/23/2024. Once dressing removed okay to shower and wash with soap and water. No creams, lotions, ointments or peroxide. Reapply new 4 x 4 over incisions to lower leg with urbano wrap. Above knee incision can be left open to air. ASSESSMENT: Patient evaluated by [facility] physical therapy. Reviewed and explained homecare services. Plan of care, goals, and visit frequency developed, reviewed, and agreed upon with patient and/or caregiver. Patient Goal: to get back to his independent life Patient will benefit from continued physical therapy to address the following deficits: strength, balance, gait, transfers, stair negotiation and bed mobility. Current Discharge Plan: independent with home exercise program. Anticipate discharge by 04/12/24. RECOMMENDATION: Next visit to focus on pain/edema management, progress HEP and functional mobility as tolerated. Agreeable to PT and OT; declining NA. See intervention summary for intervention/education details. [facility] Work Phone: 03-19-2024 Telephone encounter Note Patient asking for a handicap parking placard script and also to make a follow up appointment Mounika Barnett [facility] 03-19-2024 Miscellaneous Notes Patient asking for a handicap parking placard script and also to make a follow up appointment Mounika Barnett documented in this encounter [facility] 03-19-2024 Note HNO ID: [id number] Author: MERCY SOLIZ RPh Service: Pharmacy Author Type: Pharmacist Type: Plan of Care Filed: 03/19/2024 12:48 Note Text: DISCHARGE MEDICATION REVIEW BY PHARMACY Patient Name: Richard Head Account #: Data Unavailable Admission Date: 03/11/2024 Date of Contact: March 19, 2024 Time of Contact: 12:48 PM Medication list was reviewed by a Pharmacist for drug interactions or drug related problems:Yes Below is a summary of pharmacist recommendations discussed with LIP: No recommendations at this time from discharge medication list. Mercy Soliz RPh Pager: [phone] 03/19/2024 12:48 PM Medication List START taking these medications acetaminophen 500 mg tablet Commonly known as: TYLENOL Take 2 tablets by mouth every 8 hours as needed for pain for up to 10 days. DUSTIN-BENNIE 8.6 mg Tab Generic drug: senna Take 1 tablet by mouth two times a day as needed for constipation for up to 7 days. oxyCODONE IR 5 mg immediate release tablet Commonly known as: ROXICODONE Take 1 tablet by mouth every 6 hours as needed for pain for up to 5 days. CHANGE how you take these medications * aspirin, enteric coated 81 mg EC tablet Commonly known as: ASPIRIN, ENTERIC COATED What changed: Another medication with the same name was added. Make sure you understand how and when to take each. * aspirin, enteric coated 81 mg EC tablet Commonly known as: ASPIRIN, ENTERIC COATED Take 1 tablet by mouth two times a day for 14 days. ONCE TWO TIMES A DAY DOSING COMPLETED, THEN OKAY TO RESUME DAILY HOME DOSE What changed: You were already taking a medication with the same name, and this prescription was added. Make sure you understand how and when to take each. * This list has 2 medication(s) that are the same as other medications prescribed for you. Read the directions carefully, and ask your doctor or other care provider to review them with you. CONTINUE taking these medications FISH OIL ORAL naproxen 250 mg tablet Commonly known as: NAPROSYN Where to Get Your Medications These medications were sent to [facility] [address] [place] [address] Hours: Sunday-Sunday, 8am-7pm, Sunday 9am-1pm acetaminophen 500 mg tablet aspirin, enteric coated 81 mg EC tablet DUSTIN-BENNIE 8.6 mg Tab oxyCODONE IR 5 mg immediate release tablet [facility] 03-19-2024 Note HNO ID: [id number] Author: ALEKSANDER CHAIREZ RN Service: Care Management Author Type: Registered Nurse Type: Care Mgt Progress Note Filed: 03/19/2024 15:12 Note Text: CARE MANAGEMENT DISCHARGE NOTE SERVICE DATE: March 19, 2024 SERVICE TIME: 12:40 PM Admission Date: 03/11/2024 LOS: 8 days Discharge Arrangement Discharge Arrangement: Home with Home Health Services Arranged Type: Physical Therapy, Occupational Therapy Caregiver Assessment Caregiver is ready, willing and able to meet the patient's needs as recommended by the inter-professional team: Yes Name of Caregiver: [facility] Transportation Arrangements Transportation Arrangements: Car Date of Trip: 03/19/24 Destination: Home Handoff Communication: Handoff to: Primary Care Physician Primary Care Physician Name/Phone: Ashu, Rosa K, STOCK CONTROL CLERK PCP - General, Nurse Practitioner [phone] Additional Information: Patient discharged home, Family to transport. Summary of care sent to Rosa Wakefield CNP. [facility] with [facility] . Discharge Information Row Name ED to Hosp-Admission (Current) from 03/11/[address] [facility] Home Health Care Agency [facility] Start of Care 03/21/24 SIGNATURE: Aleksander Chairez RN PATIENT NAME: Richard Head DATE: March 19, 2024 TIME: 12:40 PM CONTACT #: [phone] [facility] 03-19-2024 Note HNO ID: [id number] Author: DAQUAN MARY CPhT Service: Pharmacy Author Type: Coat Joiner Type: Plan of Care Filed: 03/19/2024 11:15 Note Text: PHARMACY BEDSIDE DELIVERY SERVICE Patient Name: Richard Head The marked outpatient medications were Filled at: [facility] and delivered to the patient's bedside to patient. Medication List START taking these medications acetaminophen 500 mg tablet Commonly known as: TYLENOL Take 2 tablets by mouth every 8 hours as needed for pain for up to 10 days. DUSTIN-BENNIE 8.6 mg Tab Generic drug: senna Take 1 tablet by mouth two times a day as needed for constipation for up to 7 days. oxyCODONE IR 5 mg immediate release tablet Commonly known as: ROXICODONE Take 1 tablet by mouth every 6 hours as needed for pain for up to 5 days. CHANGE how you take these medications * aspirin, enteric coated 81 mg EC tablet Commonly known as: ASPIRIN, ENTERIC COATED What changed: Another medication with the same name was added. Make sure you understand how and when to take each. * aspirin, enteric coated 81 mg EC tablet Commonly known as: ASPIRIN, ENTERIC COATED Take 1 tablet by mouth two times a day for 14 days. ONCE TWO TIMES A DAY DOSING COMPLETED, THEN OKAY TO RESUME DAILY HOME DOSE What changed: You were already taking a medication with the same name, and this prescription was added. Make sure you understand how and when to take each. * This list has 2 medication(s) that are the same as other medications prescribed for you. Read the directions carefully, and ask your doctor or other care provider to review them with you. CONTINUE taking these medications FISH OIL ORAL naproxen 250 mg tablet Commonly known as: NAPROSYN You might also be taking other medications not listed above. If you have questions about any of your other medications, talk to the person who prescribed them or your Primary Care Provider. Daquan Mary [facility] PAGER: Daquan Mary ([facility]) [phone] March 19, 2024 11:14 AM [facility] 03-19-2024 Telephone encounter Note Date/Time: 03/19/2024 9:28 AM Spoke with [employer] @ phone #: [phone] - Preferred # for contact: [phone] Have you received help from a home care company in the last 60 days? No Are you agreeable to [facility] services? Yes What address will we be seeing you at? [address] [place] [address] Do you have any upcoming appointments or things we need to schedule around? No Do you have a teachable CG or can you manage your care independently? SO Have you received the flu shot? Yes If so, when and where? [facility]. [facility] 03-19-2024 Miscellaneous Notes Date/Time: 03/19/2024 9:28 AM Spoke with [employer] @ phone #: [phone] - Preferred # for contact: [phone] Have you received help from a home care company in the last 60 days? No Are you agreeable to [facility] services? Yes What address will we be seeing you at? [address] [place] [address] Do you have any upcoming appointments or things we need to schedule around? No Do you have a teachable CG or can you manage your care independently? SO Have you received the flu shot? Yes If so, when and where? [facility]. documented in this encounter [facility] 03-19-2024 Note HNO ID: [id number] Author: CARISA BURCH MD Service: Orthopaedic Surgery Author Type: Physician Type: Progress Notes Filed: 03/19/2024 07:06 Note Text: Orthopaedic Trauma Surgery Attending Addendum Reviewed resident Progress Note. Agree with resident assessment and plan unless otherwise noted. -Management per orthopaedic trauma surgery -PT/OT: Weight-bearing as tolerated with the left lower extremity with ambulation assistance devices as needed -Post-Operative Antibiotics: Ancef 2g IV q8H x 2 doses - completed -DVT PPX: SCDs; Aspirin 81 mg PO BID x 21 days -Manzano: None -Consults: None -Dressings: Xeroform, 4x4s, ABDs, URBANO to the left lower extremity -Pain control; ice and elevation of the left lower extremity -Disposition: Discharge to acute rehab Carisa Burch MD Orthopaedic Trauma Surgery 03/19/2024 7:05 AM Orthopaedic Surgery Inpatient Progress Note Assessment Richard Head is a 58 year old male who is POD #7 status-post insertion of left tibial nail. . Plan -Management per orthopaedic trauma surgery -PT/OT: Weight-bearing as tolerated with the left lower extremity with ambulation assistance devices as needed -Post-Operative Antibiotics: Ancef 2g IV q8H x 2 doses - completed -DVT PPX: SCDs; Aspirin 81 mg PO BID x 21 days -Manzano: None -Consults: None -Dressings: Dressing changed to LLE on 03/18 -Pain control; ice and elevation of the left lower extremity -Disposition: Discharge to home with [facility] Subjective No acute events overnight. Pain controlled with medication. No new numbness or tingling down the LLE. Plan for discharge home today with [facility]. All questions answered. Patient ready for discharge. No fevers, chills, chest pain, or shortness of breath. No new complaints. Physical Examination Vitals BP 127/64 Pulse 66 Temp 36.7 ?C (98 ?F) (Oral) Resp 14 Ht 172.7 cm (5' 7.99) Wt 95.1 kg (209 lb 10.5 oz) SpO2 96% BMI 31.89 kg/m? General Alert. No acute distress. Cooperative with interview. Left Lower Extremity Soft dressing and mepilex clean, dry, intact Alignment normal. No gross deformities. Significant swelling to the LLE. No ecchymosis Incisions well approximated. No evidence of draining. No open wounds or lacerations. SILT Villegas/Sa/DP/SP/T. Motor intact EHL/DF/PF. DP/PT pulses palpable; BCR all digits. Labs No results for input(s): NA, K, CHLOR, CO2, BUN, CREAT, GLUC, ANION, CA, MG, P, ALB, AST, ALT, ALKPHOS, TBILI, DBILI, PHOSINTL, WBC, HB, HCT, PLT, LACT, INR, PH, PCO2, PO2, BE, HCO3 in the last 72 hours. Invalid input(s): [facility] Imaging No new imaging Logan Arreguin MD Orthopaedic Surgery - PGY 4 5:58 AM 03/19/2024 Pager #[phone] [facility] 03-18-2024 Note HNO ID: [id number] Author: BETZAIDA RUSSO APRN.STOCK CONTROL CLERK Service: Orthopaedic Surgery Author Type: Nurse Practitioner Type: Plan of Care Filed: 03/18/2024 12:33 Note Text: LLE dressing changed. Incisions well approximated without drainage or erythema. Mepilex applied over knee incision. Xeroform 4x4 over sutures to lower extremity. 4 x 4 and urbano-wrap. Patient tolerated well. [facility] 03-18-2024 Note HNO ID: [id number] Author: CRISPIN LE RN Service: Care Management Author Type: Registered Nurse Type: Care Mgt Progress Note Filed: 03/18/2024 16:42 Note Text: CARE MANAGEMENT PROGRESS NOTE SERVICE DATE: 03/18/2024 SERVICE TIME: 12:20 PM LOS: 7 days Post-Acute Discharge Planning Patient Goal(s): Better mobility, Increase strength, General wellness, Be able to go home, Independent living, Heal wounds, Less pain Kendall of Choice Explained: Discharge Planning Participant(s): Patient/Family Comments: Anticipated # of Days Until Discharge: 1 Transport at Discharge: Transportation Agency and Phone #:: [facility] ( [facility] ) [phone] Gleason Operator Location: [facility] Destination: [facility] [address] [place] [address] Needs Prior to Discharge: Needs Prior to Discharge: Precertification, Discharge Transportation Post-Acute Discharge Plan: Communication from [facility] states they are still awaiting regarding precert. States they left 2 voicemails this AM and will f/u with another call this afternoon around 1330. Update March 18, 2024 3:41 PM New POC is to DC with [facility] on 03/19. Patient is agreeable. Request for wheeled walker sent through [place]. Bedside delivery requested. Family will obtain a BSC. Crutches to be provided by PT/OT. Referral to [facility] tashed to [facility]. Patient's significant other will be able to transport home after 3PM via personal vehicle. SIGNATURE: Crispin Le RN PATIENT NAME: Richard Head DATE: March 18, 2024 TIME: 12:14 PM PAGER/CONTACT #: [phone] [facility] 03-18-2024 Note HNO ID: [id number] Author: CARISA BURCH MD Service: Orthopaedic Surgery Author Type: Physician Type: Progress Notes Filed: 03/18/2024 09:02 Note Text: Orthopaedic Trauma Surgery Attending Addendum Reviewed resident Progress Note. The patient was personally seen and examined on 03/18/2024. Agree with resident history, physical examination, assessment and plan unless otherwise noted. -Management per orthopaedic trauma surgery -PT/OT: Weight-bearing as tolerated with the left lower extremity with ambulation assistance devices as needed -Post-Operative Antibiotics: Ancef 2g IV q8H x 2 doses - completed -DVT PPX: SCDs; Aspirin 81 mg PO BID x 21 days -Manzano: None -Consults: None -Dressings: Xeroform, 4x4s, ABDs, URBANO to the left lower extremity -Pain control; ice and elevation of the left lower extremity -Disposition: Discharge to acute rehab Carisa Burch MD Orthopaedic Trauma Surgery 03/18/2024 9:01 AM Orthopaedic Surgery Inpatient Progress Note Assessment Richard Head is a 58 year old male who is POD #6 status-post insertion of left tibial nail. . Plan -Management per orthopaedic trauma surgery -PT/OT: Weight-bearing as tolerated with the left lower extremity with ambulation assistance devices as needed -Post-Operative Antibiotics: Ancef 2g IV q8H x 2 doses - completed -DVT PPX: SCDs; Aspirin 81 mg PO BID x 21 days -Manzano: None -Consults: None -Dressings: Xeroform, 4x4s, ABDs, URBANO to the left lower extremity -Pain control; ice and elevation of the left lower extremity -Disposition: Discharge to acute rehab Subjective No acute events overnight. Pain controlled. Did some steps with therapy yesterday. Saying he has some calf pain this morning. Waiting on insurance approval for SNF. No fevers, chills, chest pain, or shortness of breath. No new complaints. Physical Examination Vitals BP 112/76 Pulse 88 Temp 37.6 ?C (99.7 ?F) (Oral) Resp 17 Ht 172.7 cm (5' 7.99) Wt 95.1 kg (209 lb 10.5 oz) SpO2 95% BMI 31.89 kg/m? General Alert. No acute distress. Cooperative with interview. Left Lower Extremity Soft dressing clean, dry, intact Alignment normal. No gross deformities. Significant swelling to the LLE. No ecchymosis Incisions well approximated. No evidence of draining. No open wounds or lacerations. SILT Villegas/Sa/DP/SP/T. Motor intact EHL/DF/PF. DP/PT pulses palpable; BCR all digits. Labs No results for input(s): NA, K, CHLOR, CO2, BUN, CREAT, GLUC, ANION, CA, MG, P, ALB, AST, ALT, ALKPHOS, TBILI, DBILI, PHOSINTL, WBC, HB, HCT, PLT, LACT, INR, PH, PCO2, PO2, BE, HCO3 in the last 72 hours. Invalid input(s): [facility] Imaging No new imaging Logan Arreguin MD Orthopaedic Surgery - PGY 4 5:53 AM 03/18/2024 Pager #[phone] [facility] 03-17-2024 Note HNO ID: [id number] Author: CRISPIN LE RN Service: Care Management Author Type: Registered Nurse Type: Care Mgt Progress Note Filed: 03/17/2024 14:21 Note Text: CARE MANAGEMENT PROGRESS NOTE SERVICE DATE: 03/17/2024 SERVICE TIME: 2:19 PM LOS: 6 days Post-Acute Discharge Planning Patient Goal(s): Better mobility, Increase strength, General wellness, Be able to go home, Independent living, Heal wounds, Less pain Kendall of Choice Explained: Discharge Planning Participant(s): Patient/Family Comments: Anticipated # of Days Until Discharge: 1 Transport at Discharge: Needs Prior to Discharge: Needs Prior to Discharge: To Be Determined, Accepting Facility, Bed Availability, Discharge Prescriptions, Discharge Transportation, OT/PT Evaluation, Precertification, Insurance Authorization, Other: See Comment (medical clearance) Post-Acute Discharge Plan: Chart reviewed. Patient is medically ready. Awaiting auth from Vishnu MCGARRY. Communicated with facility this AM, no updates from insurance. Patient will need cot tx upon DC. Packet is on chart. CM will continue to follow clinical course for further transitional, discharge or POC needs. SIGNATURE: Crispin Le RN PATIENT NAME: Richard Head DATE: March 17, 2024 TIME: 2:19 PM PAGER/CONTACT #: [phone] [facility] 03-17-2024 Note HNO ID: [id number] Author: CARISA BURCH MD Service: Orthopaedic Surgery Author Type: Physician Type: Progress Notes Filed: 03/17/2024 08:00 Note Text: Orthopaedic Trauma Surgery Attending Addendum Reviewed resident Progress Note. The patient was personally seen and examined on 03/17/2024. Agree with resident history, physical examination, assessment and plan unless otherwise noted. -Management per orthopaedic trauma surgery -PT/OT: Weight-bearing as tolerated with the left lower extremity with ambulation assistance devices as needed -Post-Operative Antibiotics: Ancef 2g IV q8H x 2 doses - completed -DVT PPX: SCDs; Aspirin 81 mg PO BID x 21 days -Manzano: None -Consults: None -Dressings: Xeroform, 4x4s, ABDs, URBANO to the left lower extremity -Pain control; ice and elevation of the left lower extremity -Disposition: Discharge to acute rehab Carisa Burch MD Orthopaedic Trauma Surgery 03/17/2024 8:00 AM Orthopaedic Surgery Inpatient Progress Note Assessment Richard Head is a 58 year old male who is POD #5 status-post insertion of left tibial nail. . Plan -Management per orthopaedic trauma surgery -PT/OT: Weight-bearing as tolerated with the left lower extremity with ambulation assistance devices as needed -Post-Operative Antibiotics: Ancef 2g IV q8H x 2 doses - completed -DVT PPX: SCDs; Aspirin 81 mg PO BID x 21 days -Manzano: None -Consults: None -Dressings: Xeroform, 4x4s, ABDs, URBANO to the left lower extremity -Pain control; ice and elevation of the left lower extremity -Disposition: Discharge to acute rehab Subjective No acute events overnight. Pain controlled with medication. No new numbness or tingling. Waiting for placement to AR. No fevers, chills, chest pain, or shortness of breath. No new complaints. Physical Examination Vitals BP 121/76 Pulse 68 Temp 36.8 ?C (98.3 ?F) (Oral) Resp 18 Ht 172.7 cm (5' 7.99) Wt 95.1 kg (209 lb 10.5 oz) SpO2 95% BMI 31.89 kg/m? General Alert. No acute distress. Cooperative with interview. Left Lower Extremity Soft dressing clean, dry, intact Alignment normal. No gross deformities. Significant swelling to the LLE. No ecchymosis Incisions well approximated. No evidence of draining. No open wounds or lacerations. SILT Villegas/Sa/DP/SP/T. Motor intact EHL/DF/PF. DP/PT pulses palpable; BCR all digits. Labs No results for input(s): NA, K, CHLOR, CO2, BUN, CREAT, GLUC, ANION, CA, MG, P, ALB, AST, ALT, ALKPHOS, TBILI, DBILI, PHOSINTL, WBC, HB, HCT, PLT, LACT, INR, PH, PCO2, PO2, BE, HCO3 in the last 72 hours. Invalid input(s): [facility] Imaging No new imaging Logan Arreguin MD Orthopaedic Surgery - PGY 4 5:54 AM 03/17/2024 Pager #[phone] [facility] 03-16-2024 Note HNO ID: [id number] Author: CARISA BURCH MD Service: Orthopaedic Surgery Author Type: Physician Type: Progress Notes Filed: 03/16/2024 12:12 Note Text: Orthopaedic Trauma Surgery Attending Addendum Reviewed resident Progress Note. The patient was personally seen and examined on 03/16/2024. Agree with resident history, physical examination, assessment and plan unless otherwise noted. -Management per orthopaedic trauma surgery -PT/OT: Weight-bearing as tolerated with the left lower extremity with ambulation assistance devices as needed -Post-Operative Antibiotics: Ancef 2g IV q8H x 2 doses - completed -DVT PPX: SCDs; Aspirin 81 mg PO BID x 21 days -Manzano: None -Consults: None -Dressings: Xeroform, 4x4s, ABDs, URBANO to the left lower extremity -Pain control; ice and elevation of the left lower extremity -Disposition: Discharge to acute rehab Carisa Burch MD Orthopaedic Trauma Surgery 03/16/2024 12:12 PM Orthopaedic Surgery Inpatient Progress Note Assessment Richard Head is a 58 year old male who is POD #4 status-post insertion of left tibial nail. Plan -Management per orthopaedic trauma surgery -PT/OT: Weight-bearing as tolerated with the left lower extremity with ambulation assistance devices as needed -Post-Operative Antibiotics: Ancef 2g IV q8H x 2 doses - completed -DVT PPX: SCDs; Aspirin 81 mg PO BID x 21 days -Manzano: None -Consults: None -Dressings: Xeroform, 4x4s, ABDs, URBANO to the left lower extremity -Pain control; ice and elevation of the left lower extremity -Disposition: Discharge to acute rehab when approved Subjective No acute events overnight. Pain controlled with medication. No new numbness or tingling. Patient a little frustrated and upset. He was hoping to be out of the hospital today to get started on therapy. Therapy was not by yesterday, so he is hopeful they will be by today. No fevers, chills, chest pain, or shortness of breath. No new complaints. Physical Examination Vitals BP 124/68 Pulse 79 Temp 36.3 ?C (97.4 ?F) (Oral) Resp 18 Ht 172.7 cm (5' 7.99) Wt 95.1 kg (209 lb 10.5 oz) SpO2 93% BMI 31.89 kg/m? General Alert. No acute distress. Cooperative with interview. Left Lower Extremity Soft dressing clean, dry, intact Alignment normal. No gross deformities. Significant swelling to the LLE. No ecchymosis Incisions well approximated. No evidence of draining. No open wounds or lacerations. SILT Villegas/Sa/DP/SP/T. Motor intact EHL/DF/PF. DP/PT pulses palpable; BCR all digits. Labs Recent Labs 03/14/24 0130 NA 138 CHLOR 107 CO2 25 BUN 15 CREAT 0.86 GLUC 88 ANION 6* CA 8.4* WBC 11.58* HB 12.2* HCT 36.7* PLT 194 Imaging No new imaging Logan Arreguin MD Orthopaedic Surgery - PGY 4 5:33 AM 03/16/2024 Pager #[phone] [facility] 03-15-2024 Note HNO ID: [id number] Author: CARISA BURCH MD Service: Orthopaedic Surgery Author Type: Physician Type: Progress Notes Filed: 03/15/2024 10:25 Note Text: Orthopaedic Trauma Surgery Attending Addendum Reviewed resident Progress Note. The patient was personally seen and examined on 03/15/2024. Agree with resident history, physical examination, assessment and plan unless otherwise noted. -Management per orthopaedic trauma surgery -PT/OT: Weight-bearing as tolerated with the left lower extremity with ambulation assistance devices as needed -Post-Operative Antibiotics: Ancef 2g IV q8H x 2 doses - completed -DVT PPX: SCDs; Aspirin 81 mg PO BID x 21 days -Manzano: None -Consults: None -Dressings: Xeroform, 4x4s, ABDs, URBANO to the left lower extremity -Pain control; ice and elevation of the left lower extremity -Disposition: Discharge to acute rehab Carisa Burch MD Orthopaedic Trauma Surgery 03/15/2024 10:25 AM Orthopaedic Surgery Inpatient Progress Note Assessment Richard Head is a 58 year old male who is POD #3 status-post insertion of left tibial nail. Plan -Management per orthopaedic trauma surgery -PT/OT: Weight-bearing as tolerated with the left lower extremity with ambulation assistance devices as needed -Post-Operative Antibiotics: Ancef 2g IV q8H x 2 doses - completed -DVT PPX: SCDs; Aspirin 81 mg PO BID x 21 days -Manzano: None -Consults: None -Dressings: Xeroform, 4x4s, ABDs, URBANO to the left lower extremity changed on 03/14 -Pain control; ice and elevation of the left lower extremity -Disposition: Discharge to acute rehab Subjective No acute events overnight. Pain well controlled. No new numbness or tingling. Waiting for insurance authorization for discharge. No fevers, chills, chest pain, or shortness of breath. No new complaints. Physical Examination Vitals BP 118/69 Pulse 76 Temp 37.1 ?C (98.8 ?F) (Oral) Resp 16 Ht 172.7 cm (5' 7.99) Wt 86.2 kg (190 lb 0.6 oz) SpO2 97% BMI 28.90 kg/m? General Alert. No acute distress. Cooperative with interview. Left Lower Extremity Soft dressing clean, dry, intact Alignment normal. No gross deformities. Significant swelling to the LLE. No ecchymosis Incisions well approximated. No evidence of draining. No open wounds or lacerations. SILT Villegas/Sa/DP/SP/T. Motor intact EHL/DF/PF. DP/PT pulses palpable; BCR all digits. Labs Recent Labs 03/14/24 0130 03/13/24 0045 NA 138 137 K -- 4.2 CHLOR 107 105 CO2 25 25 BUN 15 14 CREAT 0.86 0.86 GLUC 88 124* ANION 6* 7* CA 8.4* 8.5 WBC 11.58* 12.13* HB 12.2* 12.8* HCT 36.7* 39.3 PLT 194 203 Imaging No new imaging Logan Arreguin MD Orthopaedic Surgery - PGY 4 5:53 AM 03/15/2024 Pager #[phone] [facility] 03-14-2024 Note HNO ID: [id number] Author: VALENCIA CORADO RN Service: Care Management Author Type: Registered Nurse Type: Care Mgt Progress Note Filed: 03/14/2024 12:58 Note Text: CARE MANAGEMENT PROGRESS NOTE SERVICE DATE: 03/14/2024 SERVICE TIME: 1257 LOS: 3 days Precert tasked for [facility]. Cot form completed, dc packet on chart. Patient updated and all questions answered. Awaiting auth. SIGNATURE: Valencia Corado RN PATIENT NAME: Richard Head DATE: March 14, 2024 TIME: 12:57 PM PAGER/CONTACT #: [phone] [facility] 03-14-2024 Note HNO ID: [id number] Author: CARISA BURCH MD Service: Orthopaedic Surgery Author Type: Physician Type: Progress Notes Filed: 03/14/2024 09:31 Note Text: Orthopaedic Trauma Surgery Attending Addendum Reviewed resident Progress Note. The patient was personally seen and examined on 03/14/2024. Agree with resident history, physical examination, assessment and plan unless otherwise noted. -Management per orthopaedic trauma surgery -PT/OT: Weight-bearing as tolerated with the left lower extremity with ambulation assistance devices as needed -Post-Operative Antibiotics: Ancef 2g IV q8H x 2 doses - completed -DVT PPX: SCDs; Aspirin 81 mg PO BID x 21 days -Manzano: None -Consults: None -Dressings: Xeroform, 4x4s, ABDs, URBANO to the left lower extremity (dressing change on POD#3) -Pain control; ice and elevation of the left lower extremity -Disposition: Discharge to acute rehab Carisa Burch MD Orthopaedic Trauma Surgery 03/14/2024 9:30 AM Orthopaedic Surgery Inpatient Progress Note Assessment Richard Head is a 58 year old male who is POD #2 status-post insertion of left tibial IMN. Plan - Management per ortho - Pain control. - Weight Bearing Status: WBAT LLE. - Dressing(s): soft dressings to LLE - dressing changed today - PT/OT: Recommending AR - DVT PPx: SCDs. Asa 81 mg BID x 21 days. - Antibiotic PPx: Ancef 2 g Q8H x 2 doses. - Manzano: none. - Imaging: none. - Anticipated Length of Stay/Disposition: pending PT/OT. Subjective No acute events overnight. Pain controlled with medication. No numbness or tingling to the LLE. He said he was a little discouraged today due to how much he is able to ambulate right now. Plan to work with therapy again today. Currently skilled for AR. Waiting for workers comp paperwork to get completed prior to discharge. No fevers, chills, chest pain, or shortness of breath. No new complaints. Physical Examination Vitals BP 119/69 Pulse 61 Temp 36.7 ?C (98.1 ?F) (Oral) Resp 18 Ht 172.7 cm (5' 7.99) Wt 86.2 kg (190 lb 0.6 oz) SpO2 96% BMI 28.90 kg/m? General Alert. No acute distress. Cooperative with interview. Left Lower Extremity Dressing changed Alignment normal. No gross deformities. Significant swelling to the LLE. No ecchymosis Incisions well approximated. No evidence of draining. No open wounds or lacerations. SILT Villegas/Sa/DP/SP/T. Motor intact EHL/DF/PF. DP/PT pulses palpable; BCR all digits. Labs Recent Labs 03/14/24 0130 03/13/24 0045 03/11/24200203/11/24 1700 NA 138 137 -- 140 K -- 4.2 -- 4.4 CHLOR 107 105 -- 103 CO2 25 25 -- 25 BUN 15 14 -- 19 CREAT 0.86 0.86 -- 0.90 GLUC 88 124* -- 129* ANION 6* 7* -- 12 CA 8.4* 8.5 -- 9.4 ALB -- -- -- 4.3 AST -- -- -- 31 ALT -- -- -- 28 ALKPHOS -- -- -- 67 TBILI -- -- -- 0.2 WBC 11.58* 12.13* 12.66* 14.51* HB 12.2* 12.8* 14.2 14.4 HCT 36.7* 39.3 42.5 43.2 PLT 194 203 268 261 INR -- -- 1.0 1.0 Imaging No new imaging Logan Arreguin MD Orthopaedic Surgery - PGY 4 5:23 AM 03/14/2024 Pager #[phone] [facility] 03-13-2024 Note HNO ID: [id number] Author: VALENCIA CORADO RN Service: Care Management Author Type: Registered Nurse Type: Care Mgt Initial Assessment Filed: 03/13/2024 15:41 Note Text: CARE MANAGEMENT: ASSESSMENT AND DISCHARGE PLAN SERVICE DATE: March 13, 2024 SERVICE TIME: 1436 PCP: Rosa Wakefield CNP Primary Contact: Extended Emergency Contact Information Primary Emergency Contact: Jeaneth Hester Mobile Relation: Significant other Admission Status: Inpatient Insurance Provider: RAMIREZ HUMPHREY PPO OOS Discharge Planning requested by: Per Department Practice Potential Transition Plans Retirement Facility/Intermediate Care Facility;Rehab Facility Advance Directives Current Advance Directive: None Stacker Attendant Attempted to Assist with AD Completion: Yes Action: Education Provided Current Living Arrangements and Support Lives with: Spouse/significant other Type of Residence: Private Residence (House) Does the patient have to climb stairs at home?: Yes;stairs outside the home Support: Spouse/significant other, Family members, Friends/neighbors How do you manage to accomplish the following: Independent: Ambulation;Transportation to appointments/community;Bathe/Sh ower;Dress;Meals/Meal Prep;Going to the bathroom;Medication Management Current Services/Equipment Current Post-Acute Service(s): None Discharge Planning Patient Goal(s): Better mobility, Increase strength, General wellness, Be able to go home, Independent living, Heal wounds, Less pain Kendall of Choice Explained: Kendall of Choice Given: Yes Level of Care Discussed: Inpatient Rehab Facility;Retirement Facility Are you interested in bedside delivery of your medications? No Discharge Planning Participant(s): Patient Patient/Family Comments: Caregiver Assessment: Caregiver is ready, willing and able to meet the patient's needs as recommended by the inter-professional team: No Transport at Discharge: Transportation Arrangements: Ambulance Transportation Agency and Phone #:: [facility] ( [facility] ) [phone] / [phone] Type of Service: BLS Non-emergency Is Patient Medicaid Pending?: No Was transportation financial coverage discussed with family?: Patient Gleason Operator Location: [facility] Destination: [facility] Financial Care Management Responsibility: None Needs Prior to Discharge: Needs Prior to Discharge: To Be Determined;Accepting Facility;Bed Availability;Discharge Prescriptions;Discharge Transportation;OT/PT Evaluation;Precertification;Ins urance Authorization;Other: See Comment (medical clearance) Post-Acute Discharge Plan: Spoke with patient. Patient lives at home with S.O. and was independent prior to admission. No AD for ambulation. Lives in multilevel home with 4 OTIS. Employed and drives. Discussed recommendations for AR. Patient would prefer a facility closer to home, but agreeable to sending both AR and SNF referrals to see options. Referrals placed; awaiting response. [facility] is FOC Will need accepting facility, precert, 7000 (SNF), cot transport. SIGNATURE: Valencia Corado RN PATIENT NAME: Richard Head DATE: March 13, 2024 TIME: 2:37 PM CONTACT #: [phone] [facility] 03-13-2024 Note HNO ID: [id number] Author: CARISA BURCH MD Service: Orthopaedic Surgery Author Type: Physician Type: Progress Notes Filed: 03/13/2024 21:28 Note Text: Orthopaedic Trauma Surgery Attending Addendum Reviewed resident Progress Note. The patient was personally seen and examined on 03/13/2024. Agree with resident history, physical examination, image interpretation, assessment and plan unless otherwise noted. Weight-bearing as tolerated with the left lower extremity. Aspirin 81 mg PO BID x 21 days. Post-operative Ancef complete. Discharge planning to acute rehab. Carisa Burch MD Orthopaedic Trauma Surgery 03/13/2024 9:28 PM Orthopaedic Surgery Inpatient Progress Note Assessment Richard Head is a 58 year old male who is POD #1 status-post insertion of left tibial IMN. Plan - Management per ortho - Pain control. - Weight Bearing Status: WBAT LLE. - Dressing(s): soft dressings to LLE - dressing change on POD 2 - PT/OT: Evaluation AND recommendations. - DVT PPx: SCDs. Asa 81 mg BID x 21 days. - Antibiotic PPx: Ancef 2 g Q8H x 2 doses. - Manzano: none. - Imaging: none. - Anticipated Length of Stay/Disposition: pending PT/OT. Subjective No acute events overnight. Soreness to the LLE. No new numbness or tingling to the LLE. He was curious who would be able to fill out his worker's comp paperwork for his injury. I told him I would talk to Dr. Burch this morning. No fevers, chills, chest pain, or shortness of breath. No new complaints. Physical Examination Vitals BP 113/70 Pulse 71 Temp 37 ?C (98.6 ?F) (Oral) Resp 18 Ht 172.7 cm (5' 7.99) Wt 86.2 kg (190 lb 0.6 oz) SpO2 93% BMI 28.90 kg/m? General Alert. No acute distress. Cooperative with interview. Left Lower Extremity SuperAce dressing to the LLE with mild saturation Alignment normal. No gross deformities. No swelling, ecchymosis, or erythema. No open wounds or lacerations. SILT Villegas/Sa/DP/SP/T. Motor intact EHL/DF/PF. DP/PT pulses palpable; BCR all digits. Labs Recent Labs 03/13/24 0045 03/11/24200203/11/24 1700 NA 137 -- 140 K 4.2 -- 4.4 CHLOR 105 -- 103 CO2 25 -- 25 BUN 14 -- 19 CREAT 0.86 -- 0.90 GLUC 124* -- 129* ANION 7* -- 12 CA 8.5 -- 9.4 ALB -- -- 4.3 AST -- -- 31 ALT -- -- 28 ALKPHOS -- -- 67 TBILI -- -- 0.2 WBC 12.13* 12.66* 14.51* HB 12.8* 14.2 14.4 HCT 39.3 42.5 43.2 PLT 203 268 261 INR -- 1.0 1.0 Imaging Intraop XR of tib/fib show stable placement of hardware s/p tibial IMN Logan Arreguin MD Orthopaedic Surgery - PGY 4 5:52 AM 03/13/2024 Pager #[phone] [facility] 03-12-2024 Note HNO ID: [id number] Author: MYKEL FARRIS APRN.YARN INSPECTOR Service: Anesthesiology Author Type: Nurse Tap Out Operator Type: Anesthesia Procedure Notes Filed: 03/12/2024 11:52 Note Text: ANESTHESIOLOGY PROCEDURE NOTE Airway General Information Procedure Start Time/Medication Administration: 03/12/2024 11:42 AM Procedure End Time: 03/12/2024 11:44 AM Patient location during procedure: OR Timeout Performed Pre-procedure: timeout performed Consent Obtained: Yes Patient identity confirmed: arm band and patient Staffing YARN INSPECTOR: Simón Cat APRN.YARN INSPECTOR Performed by: MAIK Indications and Patient Condition Indications for airway management: anesthesia Preoxygenated: yes anesthesia circuit Method: asleep Difficult Mask: No Final Airway Details Final airway type: endotracheal airway Final Endotracheal Airway: ETT Cuffed: yes Successful intubation technique: direct laryngoscopy Devices used: [place] Endotracheal tube insertion site: oral Blade: [place] Blade size: #4 ETT size (mm): 8.0 Measured from: lips Measurement (cm): 22 Placement verified by: capnometry Cormack-Lehane Classification: grade I - full view of glottis Number of attempts at approach: 1 Airway not difficult SIGNATURE: Mykel Farris APRN.YARN INSPECTOR PATIENT NAME: Richard Head DATE: March 12, 2024 TIME: 11:51 AM CSN: [id number] [facility] 03-12-2024 Note HNO ID: [id number] Author: CARISA BURCH MD Service: Orthopaedic Surgery Author Type: Physician Type: Progress Notes Filed: 03/12/2024 07:15 Note Text: ORTHOPAEDIC SURGERY DAILY PROGRESS NOTE ASSESSMENT: 58 year old male with left tibia and fibula fractures. PLAN: -Management per orthopaedic trauma surgery -Maintain splint to the left lower extremity -NPO -Consent in chart -OR today INTERVAL HPI: No acute events overnight. Pain controlled. Denies fevers and chills. OBJECTIVE: BP 102/66 Pulse 70 Temp 36.6 ?C (97.9 ?F) Resp 20 Ht 172.7 cm (5' 8) Wt 86.2 kg (190 lb) SpO2 96% BMI 28.89 kg/m? Exam: General: NAD, AOx3 Left Lower Extremity: Splint intact. Compartments of the thigh and leg are soft and compressible. Sensation intact to light touch along the toes. Brisk capillary refill to the digits of the foot. Recent Labs 03/11/24200203/11/24 1700 CREAT -- 0.90 BUN -- 19 NA -- 140 K -- 4.4 CHLOR -- 103 CO2 -- 25 ANION -- 12 GLUC -- 129* CA -- 9.4 ALB -- 4.3 AST -- 31 ALT -- 28 ALKPHOS -- 67 TBILI -- 0.2 WBC 12.66* 14.51* HB 14.2 14.4 HCT 42.5 43.2 PLT 268 261 COAGS: APTT 25.4 03/11/2024 INR 1.0 03/11/2024 Carisa Burch MD Orthopaedic Surgery 03/12/2024 7:13 AM [facility] 01-22-2022 Note . MICRO - Microbiology PROCEDURE: Blood Culture (bacterial) [*1] SOURCE: Blood BODY SITE: COLLECTED DATE/TIME: 01/17/2022 14:50 EDT RECEIVED DATE/TIME: 01/17/2022 20:46 EDT START DATE/TIME: 01/17/2022 20:46 EDT FREE TEXT SOURCE: FINAL REPORTS Final Report [] Verified Date/Time/Personnel: 01/22/2022 20:59 EDT Blood Culture: No Growth at 5 days. PRELIMINARY REPORTS Preliminary Report [] Verified Date/Time/Personnel: 01/17/2022 22:00 EDT Culture has been received in lab and is no growth to date. Routine cultures are held for 5 days. Performing Locations *1: This test was performed at: [address], [facility] , [facility] ([place]) 01-22-2022 Note . MICRO - Microbiology PROCEDURE: Blood Culture (bacterial) [*1] SOURCE: Blood BODY SITE: COLLECTED DATE/TIME: 01/17/2022 14:50 EDT RECEIVED DATE/TIME: 01/17/2022 20:46 EDT START DATE/TIME: 01/17/2022 20:46 EDT FREE TEXT SOURCE: FINAL REPORTS Final Report [] Verified Date/Time/Personnel: 01/22/2022 20:59 EDT Blood Culture: No Growth at 5 days. PRELIMINARY REPORTS Preliminary Report [] Verified Date/Time/Personnel: 01/17/2022 22:00 EDT Culture has been received in lab and is no growth to date. Routine cultures are held for 5 days. Performing Locations *1: This test was performed at: [address], [address] [place] [address] ([facility] 01-18-2022 Hospital Discharg e instructions Patient Education 01/18/2022 14:08:41 Scapular Winging Rehab-[facility] Scapular Winging Rehab Ask your health care provider which exercises are safe for you. Do exercises exactly as told by your health care provider and adjust them as directed. It is normal to feel mild stretching, pulling, tightness, or discomfort as you do these exercises. Stop right away if you feel sudden pain or your pain gets worse. Do not begin these exercises until told by your health care provider. Strengthening exercises These exercises build strength and endurance in your shoulder. Endurance is the ability to use your muscles for a long time, even after they get tired. Scapular depression and retraction After you have practiced this exercise, try doing it without the arm support. Then, try doing it while standing instead of sitting. 1.Sit on a stable chair. Support your arms in front of you with pillows, armrests, or a tabletop. Keep your elbows near the sides of your body. 2.Gently move your shoulder blades down (scapular depression) and back toward your spine (retraction). Relax the muscles on the tops of your shoulders and in the back of your neck. 3.Hold for seconds. 4.Slowly release the tension, and relax your muscles completely before you repeat the exercise. Repeat times. Complete this exercise times a day. Scapular protraction, standing 1.Stand so you are facing a wall, about one arm-length away from the wall. 2.Place your hands on the wall and straighten your elbows. 3.Move your shoulder blades down, toward the middle of your spine. 4.Keep your shoulder blades down and move them forward, toward the wall (protraction). You should feel your shoulder blades sliding forward, around your rib cage. If you are not sure that you are doing this exercise correctly, ask your health care provider for more instructions. 5.Hold for seconds. 6.Slowly return to the starting position. Let your muscles relax completely before you repeat this exercise. Repeat times. Complete this exercise times a day. Scapular protraction, supine 1.Lie on your back on a firm surface (supine position). Hold a weight in your left / right hand. 2.Raise your left / right arm straight into the air so your hand is directly above your shoulder joint. 3.Push the weight into the air so your shoulder blade lifts off the surface that you are lying on. The scapula will push forward (protraction). Do not move your head, neck, or back. 4.Hold for seconds. 5.Slowly return to the starting position. Let your muscles relax completely before you repeat this exercise. Repeat times. Complete this exercise times a day. Scapular protraction, quadruped 1.Get on your hands and knees (quadruped position). Your hands should be directly below your shoulder blades (scapulae). 2.Straighten your arms until your elbows are locked. 3.Round your back as much as you can. Think about lifting your rib cage up into your shoulder blades. The scapula will push downward or forward (protraction). Keep your neck muscles relaxed. 4.Hold for seconds. 5.Slowly return to the starting position. Let your muscles relax completely before you repeat this exercise. Repeat times. Complete this exercise times a day. Scapular depression 1.Sit in a stable chair that has armrests. Sit upright, with your feet flat on the floor. 2.Put your hands on the armrests with your elbows bent and your fingers pointing forward. Your hands should be about even with the sides of your body. 3.Push down on the armrests to lift yourself off the chair. Straighten your elbows and lift yourself up as much as you comfortably can. Move your shoulder blades down and back (scapular depression). Do not let your shoulders move up toward your ears. Keep your feet on the ground. As you get stronger, your feet should support less of your body weight as you do this exercise. 4.Hold for seconds. 5.Slowly lower yourself back into the chair. Repeat times. Complete this exercise times a day. Shoulder extension, prone 1.Lie on your abdomen on a firm surface (prone position) so your left / right arm hangs over the edge. 2.Hold a weight in your left / right hand so your palm faces in toward your body. Your arm should be straight. 3.Squeeze your shoulder blade down toward the middle of your back. 4.Slowly raise your arm behind you and toward the ceiling, up to the height of the surface that you are lying on (extension). Keep your arm straight. 5.Hold for seconds. 6.Slowly return to the starting position and relax your muscles. Repeat times. Complete this exercise times a day. Horizontal abduction, prone 1.Lie on your abdomen on a firm surface (prone position) so your left / right arm hangs over the edge. 2.Hold a weight in your hand so your palm faces toward your feet. Your arm should be straight. 3.Squeeze your shoulder blade down toward the middle of your back. 4.Raise your left/right arm up to the height of the surface that you are lying on. Keep your arm straight and point your thumb forward. At the top of the movement, your palm should face the floor. 5.Hold for seconds. 6.Slowly return to the starting position and relax your muscles. Repeat times. Complete this exercise times a day. Scapular retraction 1.Sit in a stable chair without armrests, or stand. 2.Secure an exercise band to a stable object in front of you so it is at shoulder height. 3.Hold one end of the exercise band in each hand. Your palms should face down. 4.Straighten your elbows and lift your arms up to shoulder height. 5.Step back, away from the secured end of the exercise band, until the band stretches. 6.Squeeze your shoulder blades together (scapular retraction) and move your elbows back behind you. Do not shrug your shoulders while you do this. Your elbows should stay at about chest or shoulder height. Keep your upper arms lifted, away from your sides. 7.Hold for seconds. 8.Slowly return to the starting position. Repeat times. Complete this exercise times a day. Shoulder extension 1.Sit in a stable chair without armrests, or stand. 2.Secure an exercise band to a stable object in front of you so it is at shoulder height. 3.Hold one end of the exercise band in each hand. Your palms should face each other. 4.Straighten your elbows and lift your hands up to shoulder height. 5.Step back, away from the secured end of the exercise band, until the band stretches. 6.Squeeze your shoulder blades together and pull your hands down to the sides of your thighs (extension). Stop when your hands are straight down by your sides. Do not let your hands go behind your body. 7.Hold for seconds. 8.Slowly return to the starting position. Repeat times. Complete this exercise times a day. Scapular retraction and external rotation 1.Sit in a stable chair without armrests, or stand. 2.Secure an exercise band to a stable object in front of you so it is at shoulder height. 3.Hold one end of the exercise band in each hand. Your palms should face down. 4.Straighten your elbows and lift your hands up to shoulder height. 5.Step back, away from the secured end of the exercise band, until the band stretches. 6.Bend your elbows and raise your hands up to the height of your head. This is external rotation. Your palms should face out, in front of you, at the top of the movement. Squeeze your shoulder blades together during this movement. This is scapular retraction. 7.Hold for seconds. 8.Slowly straighten your arms to return to the starting position. Repeat times. Complete this exercise times a day. This information is not intended to replace advice given to you by your health care provider. Make sure you discuss any questions you have with your health care provider. Document Released: 05/14/2006 Document Revised: 09/05/2019 Document Reviewed: 03/20/2019 Elsevier Patient Education 2020 [employer] 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 [facility] Isr[facility] 01-18-2022 Note Discharge Instructions Thank you for allowing [facility] to assist you with your healthcare needs. The following is important discharge information regarding your hospital visit. Your Care Team [facility] Your Diagnosis Leukocytosis Muscle strain Tobacco dependence Abdominal pain reevaluation Acute pain What to do next Scheduled Follow-Up Appointments Appointment Type When With Where [facility] 01/31/2022 08:00 AM EDT YAMILKA AYALA [facility] Follow Up Appointments Follow Up with YAMILKA AYALA When 01/31/2022 08:00 AM EDT Why: This is your post-hospital and new patient appointment. Where: [address] [place] [phone] The Following Activity and Diet Have Been Ordered for You Discharge Activity - Ordered -- Lifting Restricted less than 25 pounds, for the next 5 days, 01/18/22 13:56:00 EDT Discharge Driving Restrictions - Ordered -- * Other, specify in special instructions, No driving while taking norco., 01/18/22 13:56:00 EDT Discharge Return to Work, School, or Sports - Ordered -- @ Return to work 5-7 days, within 5-7 days, Return to Work - NO Restrictions, May return to: work, YAMILKA AYALA, 01/18/22 13:56:00 EDT Discharge Diet - Ordered -- No changes were made to your diet during your hospital stay. Please resume your pre hospitalization diet on discharge., 01/18/22 13:56:00 EDT The Following Treatments Have Been Ordered for You Discharge Labs No qualifying data available. Discharge Radiology No qualifying data available. Other Therapies Discharge Outpatient to Other Therapy/Tests (Discharge Outpatient Other Therapy/Tests) - Ordered -- Your therapy ordered is: PFT, Relevant Diagnosis: tobacco use, ? COPD, Reason for therapy: ? COPD, Follow-up within: 2 weeks, 01/17/22 15:35:00 EDT Post Acute Orders No qualifying data available. Allergies NKA Medications Please ask your primary doctor or pharmacist before taking any other medication not listed, including over the counter drugs, herbal medications, vitamins and or supplements as they may interact with your home medications. What How Much When Why Instructions Last Dose New acetaminophen-hydrocodone (Centrahoma 325- 5 mg oral tablet) 1 tab(s) by mouth Every 6 hours as needed for for pain Acute pain Duration: 5 Days Pickup at [facility]/pharmacy #[id number] 12:30PM New cefuroxime (cefuroxime 500 mg oral tablet) 1 tab(s) by mouth Two (2) times a day Start tomorrow morning Duration: 7 Days Pickup at [facility]/pharmacy #[id number] N/A New predniSONE (predniSONE 20 mg oral tablet) 1 tab(s) by mouth Once a day with a meal Start tomorrow morning Duration: 5 Days Pickup at [facility]/pharmacy #[id number] 6 AM [id number] [address] [place], [place] [id number] [phone] What How Much When Comments Stop Taking naproxen (naproxen 250 mg oral tablet) 1 tab(s) by mouth Two (2) times a day Please take this list to your next doctor s visit. Bring all medications you take, including over the counter medications, herbals and other supplements with you to your doctor s visit. Patients and families are reminded to discard old lists and to update any records with all medication providers or retail pharmacies. Medication Leaflets acetaminophen and hydrocodone (a SEET a MIN oh fen and vivek droe KOE done) Hycet, Lorcet, Centrahoma, Verdrocet, Vicodin, Xodol, Zamicet What is the most important information I should know about acetaminophen and hydrocodone? MISUSE OF OPIOID MEDICINE CAN CAUSE ADDICTION, OVERDOSE, OR . Keep the medication in a place where others cannot get to it. Taking opioid medicine during may cause life-threatening withdrawal symptoms in the . Fatal side effects can occur if you use opioid medicine with alcohol, or with other drugs that cause drowsiness or slow your breathing. Stop taking this medicine and call your doctor right away if you have skin redness or a rash that spreads and causes blistering and peeling. What is acetaminophen and hydrocodone? Acetaminophen and hydrocodone is a combination medicine used to relieve moderate to severe pain. Acetaminophen and hydrocodone contains an opioid medicine, and may be habit-forming. Acetaminophen and hydrocodone may also be used for purposes not listed in this medication guide. What should I discuss with my healthcare provider before taking acetaminophen and hydrocodone? You should not use this medicine if you are allergic to acetaminophen or hydrocodone, or if you have: severe asthma or breathing problems; or a blockage in your stomach or intestines. Tell your doctor if you have ever had: breathing problems, sleep apnea (breathing stops during sleep); liver disease; a drug or alcohol addiction; kidney disease; a head injury or seizures; urination problems; or problems with your thyroid, pancreas, or gallbladder. If you use opioid medicine while you are , your baby could become dependent on the drug. This can cause life-threatening withdrawal symptoms in the baby after it is born. Babies born dependent on opioids may need medical treatment for several weeks. Ask a doctor before using opioid medicine if you are . Tell your doctor if you notice severe drowsiness or slow breathing in the nursing baby. How should I take acetaminophen and hydrocodone? Follow all directions on your prescription label. Never take this medicine in larger amounts, or for longer than prescribed. An overdose can damage your liver or cause . Tell your doctor if you feel an increased urge to use more of this medicine. Never share this medicine with another person, especially someone with a history of drug abuse or addiction. MISUSE CAN CAUSE ADDICTION, OVERDOSE, OR . Keep the medicine in a place where others cannot get to it. Selling or giving away this medicine is against the law. Measure liquid medicine carefully. Use the dosing syringe provided, or use a medicine dose-measuring device (not a kitchen spoon). If you need surgery or medical tests, tell the doctor ahead of time that you are using this medicine. You should not stop using this medicine suddenly. Follow your doctor's instructions about tapering your dose. Store at room temperature away from moisture and heat. Keep track of your medicine. You should be aware if anyone is using it improperly or without a prescription. Do not keep leftover opioid medication. Just one dose can cause in someone using this medicine accidentally or improperly. Ask your pharmacist where to locate a drug take-back disposal program. If there is no take-back program, flush the unused medicine down the toilet. What happens if I miss a dose? Since this medicine is used for pain, you are not likely to miss a dose. Skip any missed dose if it is almost time for your next dose. Do not use two doses at one time. What happens if I overdose? Seek emergency medical attention or call the Poison Help line at . An overdose of this medicine can be fatal, especially in a child or other person using the medicine without a prescription. Overdose symptoms may include nausea, vomiting, sweating, severe drowsiness, pinpoint pupils, slow breathing, or no breathing. Your doctor may recommend you get naloxone (a medicine to reverse an opioid overdose) and keep it with you at all times. A person caring for you can give the naloxone if you stop breathing or don't wake up. Your caregiver must still get emergency medical help and may need to perform CPR (cardiopulmonary resuscitation) on you while waiting for help to arrive. Anyone can buy naloxone from a pharmacy or local health department. Make sure any person caring for you knows where you keep naloxone and how to use it. What should I avoid while taking acetaminophen and hydrocodone? Avoid driving or operating machinery until you know how this medicine will affect you. Dizziness or drowsiness can cause falls, accidents, or severe injuries. Do not drink alcohol. Dangerous side effects or could occur. Ask a doctor or pharmacist before using any other medicine that may contain acetaminophen (sometimes abbreviated as APAP). Taking certain medications together can lead to a fatal overdose. What are the possible side effects of acetaminophen and hydrocodone? Get emergency medical help if you have signs of an allergic reaction: hives; difficulty breathing; swelling of your face, lips, tongue, or throat. Opioid medicine can slow or stop your breathing, and may occur. A person caring for you should give naloxone and/or seek emergency medical attention if you have slow breathing with long pauses, blue colored lips, or if you are hard to wake up. In rare cases, acetaminophen may cause a severe skin reaction that can be fatal. This could occur even if you have taken acetaminophen in the past and had no reaction. Stop taking this medicine and call your doctor right away if you have skin redness or a rash that spreads and causes blistering and peeling. Call your doctor at once if you have: noisy breathing, sighing, shallow breathing, breathing that stops; a light-headed feeling, like you might pass out; liver problems--nausea, upper stomach pain, tiredness, loss of appetite, dark urine, casie-colored stools, jaundice (yellowing of the skin or eyes); low cortisol levels-- nausea, vomiting, loss of appetite, dizziness, worsening tiredness or weakness; o high levels of serotonin in the body--agitation, hallucinations, fever, sweating, shivering, fast heart rate, muscle stiffness, twitching, loss of coordination, nausea, vomiting, diarrhea. Serious breathing problems may be more likely in older adults and in those who are debilitated or have wasting syndrome or chronic breathing disorders. Common side effects include: dizziness, drowsiness, feeling tired; nausea, vomiting, stomach pain; constipation; or headache. This is not a complete list of side effects and others may occur. Call your doctor for medical advice about side effects. You may report side effects to FDA at 2-837-WRR-6233. What other drugs will affect acetaminophen and hydrocodone? You may have breathing problems or withdrawal symptoms if you start or stop taking certain other medicines. Tell your doctor if you also use an antibiotic, antifungal medication, heart or blood pressure medication, seizure medication, or medicine to treat HIV or hepatitis C. Opioid medication can interact with many other drugs and cause dangerous side effects or . Be sure your doctor knows if you also use: cold or allergy medicines, bronchodilator asthma/COPD medication, or a diuretic ('water pill'); medicines for motion sickness, irritable bowel syndrome, or overactive bladder; other opioids--opioid pain medicine or prescription cough medicine; a sedative like Valium--diazepam, alprazolam, lorazepam, Xanax, Klonopin, Versed, and others; drugs that make you sleepy or slow your breathing--a sleeping pill, muscle relaxer, medicine to treat mood disorders or mental illness; drugs that affect serotonin levels in your body--a stimulant, or medicine for depression, Parkinson's disease, migraine headaches, serious infections, or nausea and vomiting. This list is not complete. Other drugs may affect acetaminophen and hydrocodone, including prescription and orbr-pre-djeagxo medicines, vitamins, and herbal products. Not all possible interactions are listed here. Where can I get more information? Your doctor or pharmacist can provide more information about acetaminophen and hydrocodone. Remember, keep this and all other medicines out of the reach of children, never share your medicines with others, and use this medication only for the indication prescribed. Every effort has been made to ensure that the information provided by [employer] is accurate, up-to-date, and complete, but no guarantee is made to that effect. Drug information contained herein may be time sensitive. [employer] information has been compiled for use by healthcare practitioners and consumers in the [place] and therefore [employer] does not warrant that uses outside of the [place] are appropriate, unless specifically indicated otherwise. [employer] drug information does not endorse drugs, diagnose patients or recommend therapy. [employer] drug information is an informational resource designed to assist licensed healthcare practitioners in caring for their patients and/or to serve consumers viewing this service as a supplement to, and not a substitute for, the expertise, skill, knowledge and judgment of healthcare practitioners. The absence of a warning for a given drug or drug combination in no way should be construed to indicate that the drug or drug combination is safe, effective or appropriate for any given patient. [employer] does not assume any responsibility for any aspect of healthcare administered with the aid of information [employer] provides. The information contained herein is not intended to cover all possible uses, directions, precautions, warnings, drug interactions, allergic reactions, or adverse effects. If you have questions about the drugs you are taking, check with your doctor, nurse or pharmacist. Copyright 7047-1088 [employer]. Version: 16.03. Revision Date: 06/29/2020. prednisone (PRED emily Winters What is the most important information I should know about prednisone? You should not use prednisone if you have a fungal infection anywhere in your body. You should not stop using prednisone suddenly. Follow your doctor's instructions about tapering your dose. What is prednisone? Prednisone is a steroid that reduces inflammation in the body, and also suppresses your immune system. Prednisone is used to treat many different conditions such as hormonal disorders, skin diseases, arthritis, lupus, psoriasis, allergic conditions, ulcerative colitis, Crohn's disease, eye diseases, lung diseases, asthma, tuberculosis, blood cell disorders, kidney disorders, leukemia, lymphoma, multiple sclerosis, organ transplant rejection, swelling from a brain tumor or injury. Prednisone may also be used for purposes not listed in this medication guide. What should I discuss with my healthcare provider before taking prednisone? You should not use prednisone if you are allergic to it, or if you have a fungal infection anywhere in your body. Steroid medication can weaken your immune system, making it easier for you to get an infection or worsening an infection you already have. Tell your doctor about any illness or infection you've had within the past several weeks. Tell your doctor if you have ever had: heart problems, high blood pressure, or a heart attack; glaucoma or cataracts; herpes infection of the eyes; past or present tuberculosis; a parasite infection that causes diarrhea (such as threadworms); any illness that causes diarrhea; underactive thyroid; diabetes; a stomach ulcer, diverticulitis; a colostomy or ileostomy; osteoporosis or low bone mineral density (steroid medication can increase your risk of bone loss); low levels of calcium or potassium in your blood; cirrhosis or other liver disease; mental illness or psychosis; or a muscle disorder such as myasthenia gravis. Long-term use of steroids may lead to bone loss (osteoporosis), especially if you smoke or drink alcohol, if you do not exercise, or if you do not get enough vitamin D or calcium in your diet. It is not known whether this medicine will harm an unborn baby. Tell your doctor if you are or plan to become . You should not breastfeed while using prednisone. How should I take prednisone? Follow all directions on your prescription label and read all medication guides or instruction sheets. Your doctor may occasionally change your dose. Use the medicine exactly as directed. Prednisone is taken daily or every other day, depending on the condition being treated. You may need to take the medicine at a certain time of day. Follow your doctor's instructions about when and how often to take this medicine. Take with food if prednisone upsets your stomach. Measure liquid medicine carefully. Use the dosing syringe provided, or use a medicine dose-measuring device (not a kitchen spoon). Swallow the delayed-release tablet whole and do not crush, chew, or break it. Prednisone can weaken (suppress) your immune system, and you may get an infection more easily. Call your doctor if you have signs of infection (fever, weakness, cold or flu symptoms, skin sores, diarrhea, frequent or recurring illness). If you have major surgery or a severe injury or infection, your prednisone dose needs may change. Make sure any doctor caring for you knows you are using this medicine. If you use this medicine long-term, you may need medical tests and vision exams. In case of emergency, wear or carry medical identification to let others know you use a steroid. You should not stop using prednisone suddenly. Follow your doctor's instructions about tapering your dose. Store at room temperature away from moisture, heat, and light. What happens if I miss a dose? Take the medicine as soon as you can, but skip the missed dose if it is almost time for your next dose. Do not take two doses at one time. What happens if I overdose? Seek emergency medical attention or call the Poison Help line at . High doses or long-term use of prednisone can lead to thinning skin, easy bruising, changes in body fat (especially in your face, neck, back, and waist), increased acne or facial hair, menstrual problems, impotence, or loss of interest in sex. What should I avoid while taking prednisone? Do not receive a 'live' vaccine while using prednisone. The vaccine may not work as well and may not fully protect you from disease. Live vaccines include measles, mumps, rubella (MMR), polio, rotavirus, typhoid, yellow fever, varicella (chickenpox), zoster (shingles), and nasal flu (influenza) vaccine. Avoid being near people who are sick or have infections. Call your doctor for preventive treatment if you are exposed to chickenpox or measles. These conditions can be serious or even fatal in people who are using steroid medicine. Avoid drinking alcohol. What are the possible side effects of prednisone? Get emergency medical help if you have signs of an allergic reaction: hives; difficult breathing; swelling of your face, lips, tongue, or throat. Call your doctor at once if you have: muscle pain or weakness; blurred vision, tunnel vision, eye pain, or seeing halos around lights; severe depression, changes in personality, unusual thoughts or behavior; bloody or tarry stools, coughing up blood or vomit that looks like coffee grounds; swelling, rapid weight gain, feeling short of breath; irregular heartbeats; severe headache, pounding in your neck or ears; decreased adrenal gland hormones--muscle weakness, tiredness, diarrhea, nausea, menstrual changes, skin discoloration, craving salty foods, and feeling light-headed; or low potassium level--leg cramps, constipation, irregular heartbeats, fluttering in your chest, increased thirst or urination, numbness or tingling, muscle weakness or limp feeling. Prednisone can affect growth in children. Tell your doctor if your child is not growing at a normal rate while using this medicine. Common side effects may include: weight gain (especially in your face or your upper back and torso); increased appetite; mood changes, trouble sleeping; changes in your menstrual periods; problems with memory or thought; muscle or joint pain; weakness; headache, dizziness, spinning sensation; nausea, bloating, loss of appetite; slow wound healing; or acne, increased sweating, thinning skin, bruising, pinpoint spots under your skin. This is not a complete list of side effects and others may occur. Call your doctor for medical advice about side effects. You may report side effects to FDA at 8-428-VBS-8840. What other drugs will affect prednisone? Sometimes it is not safe to use certain medications at the same time. Some drugs can affect your blood levels of other drugs you take, which may increase side effects or make the medications less effective. Tell your doctor about all your current medicines. Many drugs can affect prednisone, especially: bupropion; cyclosporine; digoxin; ketoconazole; an antibiotic; control pills or hormone replacement therapy; a diuretic or 'water pill'; insulin or oral diabetes medicine; a blood thinner--warfarin, Coumadin, Jantoven; or NSAIDs (nonsteroidal anti-inflammatory drugs)--aspirin, ibuprofen (Advil, Motrin), naproxen (Aleve), celecoxib, diclofenac, indomethacin, meloxicam, and others. This list is not complete and many other drugs may affect prednisone. This includes prescription and omcj-[id number]-yscthws medicines, vitamins, and herbal products. Not all possible drug interactions are listed here. Where can I get more information? Your pharmacist can provide more information about prednisone. Remember, keep this and all other medicines out of the reach of children, never share your medicines with others, and use this medication only for the indication prescribed. Every effort has been made to ensure that the information provided by [employer]. [employer]') is accurate, up-to-date, and complete, but no guarantee is made to that effect. Drug information contained herein may be time sensitive. [employer] information has been compiled for use by healthcare practitioners and consumers in the [place] and therefore [employer] does not warrant that uses outside of the [place] are appropriate, unless specifically indicated otherwise. [employer] drug information does not endorse drugs, diagnose patients or recommend therapy. [employer] drug information is an informational resource designed to assist licensed healthcare practitioners in caring for their patients and/or to serve consumers viewing this service as a supplement to, and not a substitute for, the expertise, skill, knowledge and judgment of healthcare practitioners. The absence of a warning for a given drug or drug combination in no way should be construed to indicate that the drug or drug combination is safe, effective or appropriate for any given patient. [employer] does not assume any responsibility for any aspect of healthcare administered with the aid of information [employer] provides. The information contained herein is not intended to cover all possible uses, directions, precautions, warnings, drug interactions, allergic reactions, or adverse effects. If you have questions about the drugs you are taking, check with your doctor, nurse or pharmacist. Copyright 2199-6178 [employer]. Version: 10.. Revision Date: 08/22/2018. cefuroxime (oral/injection) (SEF ue KATHIA eem) What is the most important information I should know about cefuroxime? Cefuroxime can cause serious or life-threatening allergic reactions. Tell your doctor if you have an allergy to an antibiotic, especially penicillin. What is cefuroxime? Cefuroxime is a cephalosporin (SEF a low spor in) antibiotic that is used to treat bacterial infections of the ear, nose, throat, lungs, skin, bones, joints, bladder, or kidneys. Cefuroxime is also used to treat gonorrhea, sepsis, or early Lyme disease. Cefuroxime injection is sometimes given before and after a surgery to prevent infection. Cefuroxime may also be used for purposes not listed in this medication guide. What should I discuss with my healthcare provider before using cefuroxime? Cefuroxime can cause serious or life-threatening allergic reactions. You should not use this medicine if you have ever had a severe allergic reaction to an antibiotic, such as: cefuroxime, cefadroxil, cefdinir, cefoxitin, cefprozil, ceftriaxone, cephalexin, Keflex, Omnicef, and others; avibactam, relebactam, sulbactam, tazobactam, vaborbactam, and others; or amoxicillin (Amoxil, Augmentin, Moxatag), ampicillin, dicloxacillin, oxacillin, penicillin, and others. Tell your doctor if you have ever had: an stomach or intestinal disorder such as colitis; kidney disease; liver disease; or heart problems. Cefuroxime oral suspension may contain phenylalanine and could be harmful if you have phenylketonuria (PKU). Tell your doctor if you are or . If you are being treated for gonorrhea: Having gonorrhea during may increase the risk of complications including premature , low weight, or gonorrhea developing the . The benefit of treating this condition may outweigh any risks to the baby. Not approved for use by anyone younger than 3 months old. How should I use cefuroxime? Follow all directions on your prescription label and read all medication guides or instruction sheets. Use the medicine exactly as directed. Cefuroxime oral is taken by mouth. Swallow the tablet whole and do not crush, chew, or break it. Take with or without food. Shake the oral suspension (liquid). Measure a dose with the supplied measuring device (not a kitchen spoon). Take with food. Tell your doctor if a child taking cefuroxime has trouble swallowing the medicine. Cefuroxime oral may be given as a single dose to treat gonorrhea. For most other infections, cefuroxime oral is usually given for 7 to 10 days, or for 20 days to treat early Lyme disease. Your dose needs may change if you switch from tablets to oral suspension. Follow your doctor's dosing instructions very carefully. Cefuroxime injection is given into a muscle or a vein, usually for 5 to 10 days. Ask your doctor or pharmacist if you don't understand how to use an injection. You may need to mix cefuroxime with a liquid (diluent) before using it. Use only the diluent your doctor has recommended. Prepare an injection only when you are ready to give it. Call your pharmacist if the medicine has changed colors or has particles in it. Do not reuse a needle or syringe. Place them in a puncture-proof 'sharps' container and dispose of it following state or local laws. Keep out of the reach of children and pets. Keep using this medicine even if your symptoms quickly improve. Skipping doses could make your infection resistant to medication. Cefuroxime will not treat a viral infection (flu or a common cold). Cefuroxime can affect the results of certain medical tests. Tell any doctor who treats you that you are using cefuroxime. Store the tablets at room temperature away from moisture and heat. Keep the bottle tightly closed when not in use. Store the oral suspension in the refrigerator, do not freeze. Throw away any unused medicine after 10 days. After mixing cefuroxime for injection, you will need to use it within a certain number of hours or days. This will depend on the diluent and how you store the mixture (at room temperature or in a refrigerator). Be sure you understand how to properly mix and store the medicine if using injections at home. If the cefuroxime injection is frozen when you receive it, thaw the medicine at room temperature (do not use heat). After thawing, you may store the cefuroxime injection at room temperature for up to 24 hours, or in a refrigerator for up to 7 days. Do not refreeze the medicine once it has been thawed. What happens if I miss a dose? Take the medicine as soon as you can, but skip the missed dose if it is almost time for your next dose. Do not use take doses at one time. Call your doctor for instructions if you miss a cefuroxime injection. What happens if I overdose? Seek emergency medical attention or call the Poison Help line at . Overdose symptoms may include seizure. What should I avoid while using cefuroxime? Antibiotic medicines can cause diarrhea. Tell your doctor if you have diarrhea that is watery or bloody. What are the possible side effects of cefuroxime? Get emergency medical help if you have signs of an allergic reaction (hives, difficult breathing, swelling in your face or throat) or a severe skin reaction (fever, sore throat, burning in your eyes, skin pain, red or purple skin rash that spreads and causes blistering and peeling). Call your doctor at once if you have: severe stomach pain, diarrhea that is watery or bloody (even if it occurs months after your last dose); jaundice (yellowing of the skin or eyes); fever, chills; a seizure; or chest pain. Common side effects may include: nausea, vomiting, diarrhea; flu-like symptoms; vaginal itching or discharge; or diaper rash (in people using the oral suspension). This is not a complete list of side effects and others may occur. Call your doctor for medical advice about side effects. You may report side effects to FDA at 0-084-ZEC-2296. What other drugs will affect cefuroxime? Tell your doctor about all your other medicines, especially: any other IV antibiotic; probenecid; a diuretic or 'water pill'; a blood thinner--warfarin, Coumadin, Jantoven; or a stomach acid engine test cell technician--esomeprazole, famotidine, Nexium, Pepcid, Prevacid, Prilosec, Tagamet, Zantac, and others. This list is not complete. Other drugs may affect cefuroxime, including prescription and zoxq-ymd-aqooxot medicines, vitamins, and herbal products. Not all possible drug interactions are listed here. Where can I get more information? Your pharmacist can provide more information about cefuroxime. Remember, keep this and all other medicines out of the reach of children, never share your medicines with others, and use this medication only for the indication prescribed. Every effort has been made to ensure that the information provided by [employer]') is accurate, up-to-date, and complete, but no guarantee is made to that effect. Drug information contained herein may be time sensitive. [employer] information has been compiled for use by healthcare practitioners and consumers in the [place] and therefore [employer] does not warrant that uses outside of the [place] are appropriate, unless specifically indicated otherwise. [employer] drug information does not endorse drugs, diagnose patients or recommend therapy. [employer] drug information is an informational resource designed to assist licensed healthcare practitioners in caring for their patients and/or to serve consumers viewing this service as a supplement to, and not a substitute for, the expertise, skill, knowledge and judgment of healthcare practitioners. The absence of a warning for a given drug or drug combination in no way should be construed to indicate that the drug or drug combination is safe, effective or appropriate for any given patient. [employer] does not assume any responsibility for any aspect of healthcare administered with the aid of information [employer] provides. The information contained herein is not intended to cover all possible uses, directions, precautions, warnings, drug interactions, allergic reactions, or adverse effects. If you have questions about the drugs you are taking, check with your doctor, nurse or pharmacist. Copyright 7931-4931 [employer]. Version: 10.. Revision Date: 03/29/2021. Education Materials Scapular Winging Rehab Ask your health care provider which exercises are safe for you. Do exercises exactly as told by your health care provider and adjust them as directed. It is normal to feel mild stretching, pulling, tightness, or discomfort as you do these exercises. Stop right away if you feel sudden pain or your pain gets worse. Do not begin these exercises until told by your health care provider. Strengthening exercises These exercises build strength and endurance in your shoulder. Endurance is the ability to use your muscles for a long time, even after they get tired. Scapular depression and retraction After you have practiced this exercise, try doing it without the arm support. Then, try doing it while standing instead of sitting. 1. Sit on a stable chair. Support your arms in front of you with pillows, armrests, or a tabletop. Keep your elbows near the sides of your body. 2. Gently move your shoulder blades down (scapular depression) and back toward your spine (retraction). Relax the muscles on the tops of your shoulders and in the back of your neck. 3. Hold for seconds. 4. Slowly release the tension, and relax your muscles completely before you repeat the exercise. Repeat times. Complete this exercise times a day. Scapular protraction, standing 1. Stand so you are facing a wall, about one arm-length away from the wall. 2. Place your hands on the wall and straighten your elbows. 3. Move your shoulder blades down, toward the middle of your spine. 4. Keep your shoulder blades down and move them forward, toward the wall (protraction). You should feel your shoulder blades sliding forward, around your rib cage. If you are not sure that you are doing this exercise correctly, ask your health care provider for more instructions. 5. Hold for seconds. 6. Slowly return to the starting position. Let your muscles relax completely before you repeat this exercise. Repeat times. Complete this exercise times a day. Scapular protraction, supine 1. Lie on your back on a firm surface (supine position). Hold a weight in your left / right hand. 2. Raise your left / right arm straight into the air so your hand is directly above your shoulder joint. 3. Push the weight into the air so your shoulder blade lifts off the surface that you are lying on. The scapula will push forward (protraction). Do not move your head, neck, or back. 4. Hold for seconds. 5. Slowly return to the starting position. Let your muscles relax completely before you repeat this exercise. Repeat times. Complete this exercise times a day. Scapular protraction, quadruped 1. Get on your hands and knees (quadruped position). Your hands should be directly below your shoulder blades (scapulae). 2. Straighten your arms until your elbows are locked. 3. Round your back as much as you can. Think about lifting your rib cage up into your shoulder blades. The scapula will push downward or forward (protraction). Keep your neck muscles relaxed. 4. Hold for seconds. 5. Slowly return to the starting position. Let your muscles relax completely before you repeat this exercise. Repeat times. Complete this exercise times a day. Scapular depression 1. Sit in a stable chair that has armrests. Sit upright, with your feet flat on the floor. 2. Put your hands on the armrests with your elbows bent and your fingers pointing forward. Your hands should be about even with the sides of your body. 3. Push down on the armrests to lift yourself off the chair. Straighten your elbows and lift yourself up as much as you comfortably can. Move your shoulder blades down and back (scapular depression). Do not let your shoulders move up toward your ears. Keep your feet on the ground. As you get stronger, your feet should support less of your body weight as you do this exercise. 4. Hold for seconds. 5. Slowly lower yourself back into the chair. Repeat times. Complete this exercise times a day. Shoulder extension, prone 1. Lie on your abdomen on a firm surface (prone position) so your left / right arm hangs over the edge. 2. Hold a weight in your left / right hand so your palm faces in toward your body. Your arm should be straight. 3. Squeeze your shoulder blade down toward the middle of your back. 4. Slowly raise your arm behind you and toward the ceiling, up to the height of the surface that you are lying on (extension). Keep your arm straight. 5. Hold for seconds. 6. Slowly return to the starting position and relax your muscles. Repeat times. Complete this exercise times a day. Horizontal abduction, prone 1. Lie on your abdomen on a firm surface (prone position) so your left / right arm hangs over the edge. 2. Hold a weight in your hand so your palm faces toward your feet. Your arm should be straight. 3. Squeeze your shoulder blade down toward the middle of your back. 4. Raise your left/right arm up to the height of the surface that you are lying on. Keep your arm straight and point your thumb forward. At the top of the movement, your palm should face the floor. 5. Hold for seconds. 6. Slowly return to the starting position and relax your muscles. Repeat times. Complete this exercise times a day. Scapular retraction 1. Sit in a stable chair without armrests, or stand. 2. Secure an exercise band to a stable object in front of you so it is at shoulder height. 3. Hold one end of the exercise band in each hand. Your palms should face down. 4. Straighten your elbows and lift your arms up to shoulder height. 5. Step back, away from the secured end of the exercise band, until the band stretches. 6. Squeeze your shoulder blades together (scapular retraction) and move your elbows back behind you. Do not shrug your shoulders while you do this. Your elbows should stay at about chest or shoulder height. Keep your upper arms lifted, away from your sides. 7. Hold for seconds. 8. Slowly return to the starting position. Repeat times. Complete this exercise times a day. Shoulder extension 1. Sit in a stable chair without armrests, or stand. 2. Secure an exercise band to a stable object in front of you so it is at shoulder height. 3. Hold one end of the exercise band in each hand. Your palms should face each other. 4. Straighten your elbows and lift your hands up to shoulder height. 5. Step back, away from the secured end of the exercise band, until the band stretches. 6. Squeeze your shoulder blades together and pull your hands down to the sides of your thighs (extension). Stop when your hands are straight down by your sides. Do not let your hands go behind your body. 7. Hold for seconds. 8. Slowly return to the starting position. Repeat times. Complete this exercise times a day. Scapular retraction and external rotation 1. Sit in a stable chair without armrests, or stand. 2. Secure an exercise band to a stable object in front of you so it is at shoulder height. 3. Hold one end of the exercise band in each hand. Your palms should face down. 4. Straighten your elbows and lift your hands up to shoulder height. 5. Step back, away from the secured end of the exercise band, until the band stretches. 6. Bend your elbows and raise your hands up to the height of your head. This is external rotation. Your palms should face out, in front of you, at the top of the movement. Squeeze your shoulder blades together during this movement. This is scapular retraction. 7. Hold for seconds. 8. Slowly straighten your arms to return to the starting position. Repeat times. Complete this exercise times a day. This information is not intended to replace advice given to you by your health care provider. Make sure you discuss any questions you have with your health care provider. Document Released: 05/14/2006 Document Revised: 09/05/2019 Document Reviewed: 03/20/2019 [employer] Patient Education 2020 [employer] Additional Information VACCINATE! IT SAVES (more content not included)... [facility] 01-17-2022 Note . MICRO - Microbiology PROCEDURE: Legionella Urine Ag [*1] SOURCE: Urine BODY SITE: COLLECTED DATE/TIME: 01/17/2022 16:22 EDT RECEIVED DATE/TIME: 01/17/2022 20:40 EDT START DATE/TIME: 01/17/2022 20:40 EDT FREE TEXT SOURCE: FINAL REPORTS Final Report [] Verified Date/Time/Personnel: 01/17/2022 21:52 EDT Presumptive negative for L. pneumophila serogroup 1 antigen in urine, suggesting no recent or current infection. Legionnaire's disease cannot be ruled out since other serogroups and species may also cause disease. Performing Locations *1: This test was performed at: [facility], [address] [place] [address], [facility] , [facility] ([place]) 01-17-2022 Note Date of Service 01/17/2022 Chief Complaint pt c/o right upper abdominal pain that started yesterday about 6 pm. pt was seen at [facility] last night and had labs and CT that was normal per pt. History of Present Illness 56-year-old male with past medical history significant for tobacco dependence. Patient presented to [facility] emergency department with a 1 day history of right upper quadrant pain/rib pain. Patient works midnight shift. He sleeps from 2 PM until 8 PM. He states he was woken up out of sleep with right upper quadrant pain. Movements and coughing makes it worse. Rest improves his symptoms. He states he had been doing yard work and swinging an ax. Pain was minimal and tolerable before last night. Patient left work to go to the emergency department at [facility]. Patient had a CT scan Completed at [facility] which showed no evidence of PE. Small right pleural effusion with overlying atelectasis and/or infiltration in the right posterior lower lobe. Single mildly enlarged pretracheal mediastinal lymph node. Bilateral inguinal hernias containing bowel with no obstruction or strangulation. White blood cell count was 13,000 there. Patient was discharged home. Upon arrival to [facility] emergency department patient was tachycardic at 104. This did resolve eventually. Respiratory rate of 16. Blood pressure 142/84 with adequate oxygen saturations on room air. White blood cell count 18,800. Urinalysis was positive for small amount of blood. Specific gravity 1.025. Lipase negative. Glucose 107. Remainder of CMP unremarkable. Patient had an ultrasound abdomen completed in the ER. Showed decreased hepatic echogenicity suggestive of hepatitis although other etiologies such as malignant infiltration are not excluded. Questionable mild increase in cortical echogenicity. May be due to echogenicity of adjacent liver but medical renal disease is not entirely excluded. Small right effusion. CTA of chest with similar findings as CT from [place] including prominent right hilar lymph node which may be hyperplastic or reactive. On exam today, pt denies any fever or chills. No headache or dizziness. Denies chest pain, palpitations. Chronic cough due to smoking. He is having a hard time taking deep breath due to pain.. Denies N/V/D/C. No melena/hematochezia. No dysuria or hematuria. No new paresthesias. Review of Systems See HPI for specific ROS. All other systems reviewed and negative. Physical Exam Vitals and Measurements HR: 81 RR: 20 BP: 118/62 SpO2: 93% No qualifying data available. GEN: Appears well-developed. EYES: No conjunctival erythema, drainage. EOMI EARS: Hearing grossly intact. NOSE: No nasal discharge. THROAT: Oral cavity and pharynx pink and moist. CHEST: Normal S1 and S2. Rhythm is regular. Clear to auscultation, diminished. Pain with palpation along right ribs 6-8 along the medial border. Pain is able to be reproduced with stretching and movement. ABD: Positive bowel sounds x 4 quads. Soft, nondistended, nontender. EXT: No significant deformity or joint abnormality. No edema. Peripheral pulses intact. NEURO: Sensation grossly intact SKIN: Skin color normal PSYCH: The mental examination revealed the patient was alert and oriented x 4 Lab Results 01/17 11:23 WBC: 18.8 H Hgb: 14.9 Hct: 43.6 Platelet: 299 Neutrophil %: 82.6 H Glucose Level: 107 H Sodium Level: 138 Potassium Level: 4.3 BUN: 15 Creatinine Lvl (s): 0.92 Imaging Results and [address] CT Angiography Chest w/ Contrast Result Date: January 17, 2022 Verified By: CARISA ZULUAGA MD CLINICAL STATEMENT: IMPRESSION: 1. Small right pleural effusion with small adjacent areas of atelectasis.2. No evidence for pulmonary embolism.3. Prominent right hilar lymph node which may be hyperplastic or reactive.Precise etiology is indeterminate. US Abdomen Limited Result Date: January 17, 2022 Verified By: SIMÓN NAVARRO MD CLINICAL STATEMENT: IMPRESSION: Decreased hepatic echogenicity, at least suggestive of hepatitis, althoughother etiologies such is malignant infiltration are not excluded. Questionable mild increase in cortical echogenicity. This appearance may bedue to decreased echogenicity of the adjacent liver, but medical renaldisease is not entirely excluded. Small right effusion. Assessment/Plan 1. Leukocytosis 2. Muscle strain 3. Tobacco dependence Leukocytosis White blood cell count is 18,000 today. This is increased from 13,000 at [facility]. Patient has not had any fever or chills. Denies any steroid use recently. Both CT scan show possible infiltration of the right posterior lobe. Will add DuoNebs, Rocephin, doxycycline. Check Legionella and mycoplasma. 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 Pain woke him up out of his sleep yesterday. Patient was given a dose of Solu-Medrol in the emergency department. We will start prednisone 60 mg tomorrow for muscle strain. Tobacco dependence patient has a chronic moist cough. States he is not been officially diagnosed with COPD. Patient will be given an order for PFTs upon discharge. DVT prophylaxis:SCD's Labs, diagnostics, and progress notes reviewed as noted in HPI Code Status: Full code Plan of care discussed with patient. All questions answered. Patient verbalizes understanding is agreeable to plan of care. This dictation was performed using voice recognition software and may include grammatical and/or spelling errors. Problem List/Past Medical History Ongoing No qualifying data Historical No qualifying data Procedure/Surgical History Hernia Medications Home Medications (1) Active naproxen 250 mg oral tablet 250 mg = 1 tab(s), Oral, BID Allergies NKA Social History Alcohol Use: Past., 01/17/2022 Substance Abuse Use: Past., 01/17/2022 Tobacco Nicotine Use: 10 or more cigarettes (1/2 pack or more)/day in last 30 days. Type: Cigarettes., 01/17/2022 Family History Unknown Immunizations No qualifying data available. Code Status Full code Digitally Signed by ALYCIA PARKER on 01/17/2022 03:06 PM [facility] 01-17-2022 Evaluation + Plan note Extrac tino from: Title:History and Physical Author:ALYCIA PARKER Date:01/17/22 1. Leukocytosis 2. Muscle strain 3. Tobacco dependence Leukocytosis White blood cell count is 18,000 today. This is increased from 13,000 at [facility]. Patient has not had any fever or chills. Denies any steroid use recently. Both CT scan show possible infiltration of the right posterior lobe. Will add DuoNebs, Rocephin, doxycycline. Check Legionella and mycoplasma. 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 Pain woke him up out of his sleep yesterday. Patient was given a dose of Solu-Medrol in the emergency department. We will start prednisone 60 mg tomorrow for muscle strain. Tobacco dependence patient has a chronic moist cough. States he is not been officially diagnosed with COPD. Patient will be given an order for PFTs upon discharge. DVT prophylaxis:SCD's Labs, diagnostics, and progress notes reviewed as noted in HPI Code Status: Full code Plan of care discussed with patient. All questions answered. Patient verbalizes understanding is agreeable to plan of care. This dictation was performed using voice recognition software and may include grammatical and/or spelling errors. Future Appointments Appointment Date:01/31/2022 08:00:00 AM Scheduled Provider:YAMILKA AYALA Location:[facility] Appointment Type:[facility] Follow-Up [facility] 08-23-2022 Note ORIGINAL EXAMINATION: CTA OF THE CHEST 01/17/2022 12:38 pm TECHNIQUE: CTA of the chest was performed after the administration of intravenous contrast. Multiplanar reformatted images are provided for review. MIP images are provided for review. Automated exposure control, iterative reconstruction, and/or weight based adjustment of the mA/kV was utilized to reduce the radiation dose to as low as reasonably achievable. COMPARISON: None. HISTORY: ORDERING SYSTEM PROVIDED HISTORY: Reason for Exam: chest pain; suspect PE FINDINGS: Minor degenerative changes are noted in the spine. Emphysema is present, upper lobe predominant, and there are scattered areas of pulmonary and pleural scarring seen. A small right pleural effusion is present with some adjacent compressive atelectasis. No significant left-sided pleural fluid seen. No consolidation is visible. No mediastinal adenopathy is visible. A 1.7 cm right hilar lymph node is present. Atelectatic lung at the right lower lobe enhances normally. There is no pulmonary artery defect identified on these images. No additional contributory abnormality seen. IMPRESSION: 1. Small right pleural effusion with small adjacent areas of atelectasis. 2. No evidence for pulmonary embolism. 3. Prominent right hilar lymph node which may be hyperplastic or reactive. Precise etiology is indeterminate. Interpreted by: Carisa Zuluaga MD Preliminary Report By: Carisa Zuluaga MD Electronically signed By Carisa Zuluaga MD Dictated Date: 01/17/2022 12:41:19 PM Prelim Date: 01/17/2022 12:44:11 PM Sign Date: 01/17/2022 12:44:11 PM Ordering Provider: GOLDIE JESSICA [facility]08-23-2022 Note ORIGINAL EXAMINATION: CTA OF THE CHEST 01/17/2022 12:38 pm TECHNIQUE: CTA of the chest was performed after the administration of intravenous contrast. Multiplanar reformatted images are provided for review. MIP images are provided for review. Automated exposure control, iterative reconstruction, and/or weight based adjustment of the mA/kV was utilized to reduce the radiation dose to as low as reasonably achievable. COMPARISON: None. HISTORY: ORDERING SYSTEM PROVIDED HISTORY: Reason for Exam: chest pain; suspect PE FINDINGS: Minor degenerative changes are noted in the spine. Emphysema is present, upper lobe predominant, and there are scattered areas of pulmonary and pleural scarring seen. A small right pleural effusion is present with some adjacent compressive atelectasis. No significant left-sided pleural fluid seen. No consolidation is visible. No mediastinal adenopathy is visible. A 1.7 cm right hilar lymph node is present. Atelectatic lung at the right lower lobe enhances normally. There is no pulmonary artery defect identified on these images. No additional contributory abnormality seen. IMPRESSION: 1. Small right pleural effusion with small adjacent areas of atelectasis. 2. No evidence for pulmonary embolism. 3. Prominent right hilar lymph node which may be hyperplastic or reactive. Precise etiology is indeterminate. Interpreted by: Carisa Zuluaga MD Preliminary Report By: Carisa Zuluaga MD Electronically signed By Carisa Zuluaga MD Dictated Date: 01/17/2022 12:41:19 PM Prelim Date: 01/17/2022 12:44:11 PM Sign Date: 01/17/2022 12:44:11 PM Ordering Provider: [facility]08-23-2022 Note ORIGINAL HISTORY: Right upper quadrant pain COMPARISON: No TECHNIQUE: The following organs are evaluated: liver, pancreas, gallbladder, common bile duct and right kidney. FINDINGS: The hepatic parenchyma appears mildly decreased in echogenicity relative to the godoy of the biliary system. The right kidney measures 11.8 cm in length. There is no hydronephrosis. The cortex is normal to mildly increased in echogenicity. The remaining abdominal organs are unremarkable in appearance. There is no sonographic Yoder sign. The common bile duct is within normal limits at 4 mm in diameter. The aorta and inferior vena cava are suboptimally visualized but otherwise unremarkable. There is a small right pleural effusion. IMPRESSION: Decreased hepatic echogenicity, at least suggestive of hepatitis, although other etiologies such is malignant infiltration are not excluded. Questionable mild increase in cortical echogenicity. This appearance may be due to decreased echogenicity of the adjacent liver, but medical renal disease is not entirely excluded. Small right effusion. Interpreted by: Simón Navarro MD Preliminary Report By: Simón Navarro MD Electronically signed By Simón Navarro MD Dictated Date: 01/17/2022 12:06:24 PM Prelim Date: 01/17/2022 12:12:10 PM Sign Date: 01/17/2022 12:12:10 PM Ordering Provider: [facility]08-23-2022 Note ORIGINAL HISTORY: Right upper quadrant pain COMPARISON: No TECHNIQUE: The following organs are evaluated: liver, pancreas, gallbladder, common bile duct and right kidney. FINDINGS: The hepatic parenchyma appears mildly decreased in echogenicity relative to the godoy of the biliary system. The right kidney measures 11.8 cm in length. There is no hydronephrosis. The cortex is normal to mildly increased in echogenicity. The remaining abdominal organs are unremarkable in appearance. There is no sonographic Yoder sign. The common bile duct is within normal limits at 4 mm in diameter. The aorta and inferior vena cava are suboptimally visualized but otherwise unremarkable. There is a small right pleural effusion. IMPRESSION: Decreased hepatic echogenicity, at least suggestive of hepatitis, although other etiologies such is malignant infiltration are not excluded. Questionable mild increase in cortical echogenicity. This appearance may be due to decreased echogenicity of the adjacent liver, but medical renal disease is not entirely excluded. Small right effusion. Interpreted by: Simón Navarro MD Preliminary Report By: Simón Navarro MD Electronically signed By Simón Navarro MD Dictated Date: 01/17/2022 12:06:24 PM Prelim Date: 01/17/2022 12:12:10 PM Sign Date: 01/17/2022 12:12:10 PM [facility]ing [facility] No assessment [facility] Work Phone: [facility]* Diagnosis Onset Date Resolution Status Infected sebaceous cyst of skin acute Infected sebaceous cyst of skin acute Abscess acute [facility] Work Phone: Evaluation note* Diagnosis Onset Date Resolution Status Abscess acute COPD (chronic obstructive pulmonary disease) chronic Nicotine dependence, cigarettes, in remission chronic [facility] Work Phone: evaluation note* Diagnosis Complex fracture of tibia, left, closed, initial encounter- Primary documented in this encounter [facility] note* Diagnosis Complex fracture of tibia, left, closed, initial encounter- [facility] Closed complex fracture of left tibia with routine healing, subsequent encounter- [facility] Diagnosis Status post surgery- [facility] Diagnosis Status post surgery- [facility] Diagnosis Status post surgery- Primary [facility] Diagnosis Status post surgery- Primary [facility] Diagnosis Status post surgery- [facility] Diagnosis Status post surgery- [facility] Diagnosis Status post surgery- [facility] Diagnosis Status post surgery- [facility] Diagnosis Closed complex fracture of left tibia with routine healing, subsequent encounter- Primary [facility] Diagnosis Status post surgery- [facility] Diagnosis Status post surgery- Primary documented in this encounter [facility] note* Diagnosis Status post surgery- Primary documented in this encounter [facility] note* Diagnosis Status post surgery- Primary documented in this encounter [facility] note* Diagnosis Status post surgery- Primary documented in this encounter [facility] course Narrative No data available for this section [facility] Patient's home Plan of care note* Visit Details Visit Type -PT SOC Discipline -Physical Therapy Problems Problem Description Start Date Status Goals Interve ntions PT Impaired muscle performance and/or ROM Disciplines: PT 03/20/2024 Active 1 goal linked to scheduled/documen tino intervention 1 goal intervention scheduled/document ed in this visit PT Impaired mobility Disciplines: PT 03/20/2024 Active 1 goal linked to scheduled/documen tino intervention 1 goal intervention scheduled/document ed in this visit PT Impaired gait Disciplines: PT 03/20/2024 Active 1 goal linked to scheduled/documen tino intervention 1 goal intervention scheduled/document ed in this visit PT Orthopedic Condition Disciplines: PT 03/20/2024 Active 1 goal linked to scheduled/documen tino intervention 2 goal interventions scheduled/document ed in this visit PT Learning Assessment Disciplines: PT 03/20/2024 Active 1 goal linked to scheduled/documen tino intervention 1 goal intervention scheduled/document ed in this visit Medication Education Disciplines: Skilled Services 03/20/2024 Active 1 goal linked to scheduled/documen tino intervention 1 goal intervention scheduled/document ed in this visit Sepsis Disciplines: Skilled Services 03/20/2024 Active 1 goal linked to scheduled/documen tino intervention 1 goal intervention scheduled/document ed in this visit Physician Specific Parameters Disciplines: Skilled Services 03/20/2024 Active 1 goal linked to scheduled/documen tino intervention 1 goal intervention scheduled/document ed in this visit Risk for Falls Disciplines: Skilled Services 03/20/2024 Active 1 goal linked to scheduled/documen tino intervention 1 goal intervention scheduled/document ed in this visit Pain Disciplines: Skilled Services 03/20/2024 Active 1 goal linked to scheduled/documen tino intervention 1 goal intervention scheduled/document ed in this visit Nutrition/Hydrati on Disciplines: Skilled Services 03/20/2024 Active 1 goal linked to scheduled/documen tino intervention 1 goal intervention scheduled/document ed in this visit High Risk Medications Disciplines: Skilled Services 03/20/2024 Active 1 goal linked to scheduled/documen tino intervention 2 goal interventions scheduled/document ed in this visit Discharge Disciplines: Skilled Services 03/20/2024 Active 1 goal linked to scheduled/documen tino intervention 1 goal intervention scheduled/document ed in this visit Advance Directives Disciplines: Skilled Services 03/20/2024 Resolved on 03/20/2024 1 goal linked to scheduled/documen tino intervention 1 goal intervention scheduled/document ed in this visit Goals Goal Associated Problem Outcome Goal Met? Visit Notes Improved Muscle Performance and/or ROM Description: Short term goal: Patient will demonstrate improved muscle performance to meet functional goals, to be achieved by 04/12/24. PT Impaired muscle performance and/or ROM No Improved Transfers Description: Short term goal: Patient will demonstrate safe transfers to/from bed, chair and toilet independently, to be achieved by 04/12/24. PT Impaired mobility No Improved Gait Description: STG: Patient will demonstrate improved gait ability as evidenced by ambulation 100 feet with front wheeled walker with supervision, in order to access all areas of the home, to be achieved by 04/05/24. LTG: Patient will demonstrate improved gait ability as evidenced by ambulation 150 feet with LRAD independently with AD, to return to safe community ambulation, to be achieved by 04/12/24. PT Impaired gait No Manage Orthopedic Condition Description: Improve patient and/or caregiver understanding of post surgical and/or non-surgical orthopedic intervention management as evidenced by patient and/or caregiver able to verbalize, demonstrate, and teach back instruction, to be achieved by 04/12/24. PT Orthopedic Condition No Demonstrate understanding of education Description: Patient and/or caregiver will understand educational instruction to be achieved by 04/12/24. PT Learning Assessment No Patient/caregiver will demonstrate ability to obtain, store, identify and administer ordered medications, keep accurate medication list in home, and adhere to medication schedule Description: Patient/caregiver will demonstrate ability to obtain, store, identify and administer ordered medications, keep accurate medication list in home, and adhere to medication schedule by 05/18/24. Medication Education No Patient/caregiver will be able to identify and report symptoms of sepsis Description: Patient/caregiver will be able to identify signs/symptoms of sepsis infection and will verbalize actions to take if suspected by 05/18/24. Sepsis No Patient to maintain parameters within physician-specified ranges throughout certification period Physician Specific Parameters No Manage Risk for falls Description: Patient/caregiver will verbalize knowledge of individualized fall prevention strategies by 05/18/24. Risk for Falls No Manage Pain Description: Patient and/or caregiver will verbalize knowledge and understanding of appropriate techniques to control pain, including pain medication and non-pharmacological techniques. Patient will verbalize or demonstrate an acceptable level of pain as evidenced by pain of 2/10 or less at rest. To be achieved by 04/12/24. Pain No Manage Nutrition/Hydration Description: Patient/caregiver will verbalize/demonstrate knowledge of prescribed diet and/or healthy nutrition to be achieved by 05/18/24. Nutrition/Hydration No Patient/caregiver will teach back high risk medication side effect and precaution education Description: STG Patient/caregiver will verbalize understanding of high risk medication side effects and precautions to be achieved by 05/18/24. LTG Patient/caregiver will continue to verbalize understanding of high risk medication side effects and precautions throughout certification period. High Risk Medications No Manage discharge planning Description: Patient/caregiver will verbalize understanding of ongoing discharge plan provided related to disease management, arrangements for outpatient and/or community services, obtaining medications, supplies, and DME, as needed throughout certification period. Discharge No Patient/caregiver will make healthcare providers aware of and any changes to Advance Directives throughout certification period Advance Directives Completed Yes Goal met Interventions Intervention Associated Problem/Goal Status Variance Visit Notes Physical Therapy Therapeutic Exercises Problem:PT Impaired muscle performance and/or ROM Goal:Improved Muscle Performance and/or ROM Completed Developed, implemented, and instructed patient and/or caregiver on strengthening exercises: Ankle pumps, quad sets, gluteal squeeze, heel slides SAQ, SLR and hip abduction all x 10 reps. Instructed patient and/or caregiver to perform HEP two times a day. Physical Therapy Transfer Training Problem:PT Impaired mobility Goal:Improved Transfers Completed Transfer training and instruction to patient on safe transfers to and from chair with supervision and verbal, tactile and visual cues for sequencing extremities and to promote anterior weight shifting. Recommended the following adaptive equipment/durable medical equipment: walker. Physical Therapy Gait Training Problem:PT Impaired gait Goal:Improved Gait Completed Gait training and instruction to patient on safe ambulation with front wheeled walker for 40 feet with supervision, with verbal cues for corrections of gait deviations including increase BL step length, increase heel strike/toe off and to reduce reliance on BL LEs. Instruct on orthopedic precautions and weight bearing restrictions Description: Weight bearing restrictions include: WBAT of involved extremity. Problem:PT Orthopedic Condition Goal:Manage Orthopedic Condition Completed patient and caregiver instructed on orthopedic precautions and weight bearing restrictions. Instruct on management of edema Problem:PT Orthopedic Condition Goal:Manage Orthopedic Condition Completed Instruct patient on management of edema including elevation above the level of the heart, ice and benefits of activity. Instruct and educate on knowledge deficits Problem:PT Learning Assessment Goal:Demonstrate understanding of education Completed patient and caregiver verbalize and/or demonstrate understanding of physical therapy education including orthopedic condition management, weight bearing precautions, surgical precautions, pain management, fall prevention strategies, home safety, functional activity and home exercise program. Medication Education Description: Evaluate/instruct patient/caregiver on obtaining, storing, identifying and administering ordered medications as well as keeping accurate medication list in the home and adhereing to medication schedule Problem:Medication Education Goal:Patient/caregive r will demonstrate ability to obtain, store, identify and administer ordered medications, keep accurate medication list in home, and adhere to medication schedule Completed Patient and Caregiver instructed on importance of keeping accurate medication list in home, need to take up-to-date medication list to all medical provider appointments, adhering to medication schedule, proper storage of medications and medication, route, dose, frequency, purpose, and side effects of medications. Risk of Sepsis Description: Patient is at risk for sepsis. Monitor closely for s/s of sepsis. Problem:Sepsis Goal:Patient/caregive r will be able to identify and report symptoms of sepsis Completed SPO2 Description: Notify Dr. Burch if pulse ox is <92% at rest. Problem:Physician Specific Parameters Goal:Patient to maintain parameters within physician-specified ranges throughout certification period Completed Instruct on individual fall risk factors and strategies to prevent falls and injuries caused by falls. Problem:Risk for Falls Goal:Manage Risk for falls Completed Interventions implemented and instructions provided this visit to reduce risk of falls:Assistive devices to be used: FWW. Instruct on pain and instruct on strategies to control pain Problem:Pain Goal:Manage Pain Completed patient instructed on techniques to control pain including Pharmacological measures and Non-Pharmacological measures; rest, positioning/elevation, mobility/therapeutic exercise, use of DME/assistive devices and use of thermal modalities, apply ice to affected area. Define patient s appetite/hydration status and implement strategies to improve compliance with prescribed diet and/or healthy nutrition. Problem:Nutrition/Hyd ration Goal:Manage Nutrition/Hydration Completed instructed patient and caregiver on implementing strategies to comply with healthy nutrition and adequate hydration Opioids- educated on high risk medication Problem:High Risk Medications Goal:Patient/caregive r will teach back high risk medication side effect and precaution education Completed patient and caregiver educated on taking medication(s) as prescribed by provider. Do not stop medication or alter doses without speaking with your provider. Discuss medication effectiveness or side effect concerns with your provider and home care team. Only take opioids as prescribed, do not share your medications, and take proper precautions in storing and properly disposing of opioids once no longer needed. Possible side effects of opioid medication including sedation, decreased rate of breathing, and constipation. Report over sedation to prescribing provider and practice deep breathing techniques every hour while awake. Prevent constipation by increasing water and fiber intake, increasing activity as tolerated, and use stool softener(s) as prescribed. Antiplatelet- educated on high risk medication Problem:High Risk Medications Goal:Patient/caregive r will teach back high risk medication side effect and precaution education Completed patient and caregiver educated on taking medication(s) as prescribed by provider. Do not stop medication or alter doses without speaking with your provider. Discuss medication effectiveness or side effect concerns with your provider and home care team. Discuss all medications you are taking, even [id number] medicines, with your provider and pharmacist since many drugs can interact with antiplatelet medications. If you forget to take a dose, DO NOT take a double dose. Take the missed dose as soon as possible on the same day. DO NOT take a double dose the next day to make up for the missed dose. Watch for signs of abnormal or excessive bleeding and bruising (refer to Bleeding Precautions education). Call your health care provider right away if you suspect something is wrong. Instruct on ongoing discharge plan Problem:Discharge Goal:Manage discharge planning Completed Ongoing Discharge plan: Discharge plan discussed with patient and caregiver including frequency and duration for home PT and plan for transition to: live independently at home without ongoing services. Determine patient's Advance Directive Status Description: Patient does not have advance directives. . Problem:Advance Directives Goal:Patient/caregive r will make healthcare providers aware of and any changes to Advance Directives throughout certification period Completed Discussed Advance Directives with Patient and/or Caregiver. Referred patient to Home Care handbook for further information on Healthcare DPOA & Living Will. documented in this encounter [facility]'s home Plan of care note* Visit Details Visit Type -OT EVAL Discipline -Occupational Therapy Problems Problem Description Start Date Status Goals Interve ntions Medication Education Disciplines: Skilled Services 03/20/2024 Active 1 goal linked to scheduled/document ed intervention 1 goal intervention scheduled/documente d in this visit Sepsis Disciplines: Skilled Services 03/20/2024 Active 1 goal linked to scheduled/document ed intervention 1 goal intervention scheduled/documente d in this visit OT Referral Disciplines: Skilled Services 03/20/2024 Active 1 goal linked to scheduled/document ed intervention 1 goal intervention scheduled/documente d in this visit Physician Specific Parameters Disciplines: Skilled Services 03/20/2024 Active 1 goal linked to scheduled/document ed intervention 1 goal intervention scheduled/documente d in this visit Risk for Falls Disciplines: Skilled Services 03/20/2024 Active 1 goal linked to scheduled/document ed intervention 1 goal intervention scheduled/documente d in this visit Pain Disciplines: Skilled Services 03/20/2024 Active 1 goal linked to scheduled/document ed intervention 1 goal intervention scheduled/documente d in this visit Discharge Disciplines: Skilled Services 03/20/2024 Active 1 goal linked to scheduled/document ed intervention 1 goal intervention scheduled/documente d in this visit OT Learning Assessment Disciplines: OT 03/21/2024 Active 1 goal linked to scheduled/document ed intervention 1 goal intervention scheduled/documente d in this visit OT ADLs/IADLs Disciplines: OT 03/21/2024 Active 1 goal linked to scheduled/document ed intervention 1 goal intervention scheduled/documente d in this visit OT Functional Transfers Disciplines: OT 03/21/2024 Active 1 goal linked to scheduled/document ed intervention 1 goal intervention scheduled/documente d in this visit Goals Goal Associated Problem Outcome Goal Met? Visit Notes Patient/caregiver will demonstrate ability to obtain, store, identify and administer ordered medications, keep accurate medication list in home, and adhere to medication schedule Description: Patient/caregiver will demonstrate ability to obtain, store, identify and administer ordered medications, keep accurate medication list in home, and adhere to medication schedule by 05/18/24. Medication Education No Patient/caregiver will be able to identify and report symptoms of sepsis Description: Patient/caregiver will be able to identify signs/symptoms of sepsis infection and will verbalize actions to take if suspected by 05/18/24. Sepsis No Patient will be referred to additional discipline as needed OT Referral No Patient to maintain parameters within physician-specified ranges throughout certification period Physician Specific Parameters No Manage Risk for falls Description: Patient/caregiver will verbalize knowledge of individualized fall prevention strategies by 05/18/24. Risk for Falls No Manage Pain Description: Patient and/or caregiver will verbalize knowledge and understanding of appropriate techniques to control pain, including pain medication and non-pharmacological techniques. Patient will verbalize or demonstrate an acceptable level of pain as evidenced by pain of 2/10 or less at rest. To be achieved by 04/12/24. Pain No Manage discharge planning Description: Patient/caregiver will verbalize understanding of ongoing discharge plan provided related to disease management, arrangements for outpatient and/or community services, obtaining medications, supplies, and DME, as needed throughout certification period. Discharge No Demonstrate understanding of education Description: Patient and/or caregiver will understand educational instruction to be achieved by 03/21/24. OT Learning Assessment No Improved ADLs/IADLs performance Description: patient will verbalize understanding of instructions and demonstrate improved performance of lower body dressing to independence as evidenced by improved Reid ADL Index score to at least 90/100 to be achieved by 03/21/24. OT ADLs/IADLs No Improved Functional Transfers Description: patient will demonstrate safe transfers to/from shower/tub with independent assistance and no verbal cues with use of DME to be achieved by 03/21/24. OT Functional Transfers No Interventions Intervention Associated Problem/Goal Status Variance Visit Notes Medication Education Description: Evaluate/instruct patient/caregiver on obtaining, storing, identifying and administering ordered medications as well as keeping accurate medication list in the home and adhereing to medication schedule Problem:Medication Education Goal:Patient/caregive r will demonstrate ability to obtain, store, identify and administer ordered medications, keep accurate medication list in home, and adhere to medication schedule Completed Patient instructed on importance of keeping accurate medication list in home. Risk of Sepsis Description: Patient is at risk for sepsis. Monitor closely for s/s of sepsis. Problem:Sepsis Goal:Patient/caregive r will be able to identify and report symptoms of sepsis Completed OT evaluation and treatment Description: Evaluate and treat for the assessment of functional deficits and establishment of appropriate interventions and education to address: I/ADL training, functional transfers, DME/adaptive equipment recommendations and safety awareness. Problem:OT Referral Goal:Patient will be referred to additional discipline as needed Completed SPO2 Description: Notify Dr. Burch if pulse ox is <92% at rest. Problem:Physician Specific Parameters Goal:Patient to maintain parameters within physician-specified ranges throughout certification period Completed Instruct on individual fall risk factors and strategies to prevent falls and injuries caused by falls. Problem:Risk for Falls Goal:Manage Risk for falls Completed OT: Patient instructed on Eliminating Environmental Hazards: Keep pathways clear Instruct on pain and instruct on strategies to control pain Problem:Pain Goal:Manage Pain Completed patient instructed on techniques to control pain including Non-Pharmacological measures; rest. Instruct on ongoing discharge plan Problem:Discharge Goal:Manage discharge planning Completed Ongoing Discharge plan: Discharge plan discussed with patient including frequency and duration for home OT and plan for transition to: live independently at home without ongoing services. Instruct and educate on knowledge deficits Problem:OT Learning Assessment Goal:Demonstrate understanding of education Completed Education methods include: verbal cues. Patient/Caregiver require further education to improve knowledge and compliance with fall prevention strategies. ADL/IADLs Training Problem:OT ADLs/IADLs Goal:Improved ADLs/IADLs performance Completed Instruct patient on compensatory strategies and adaptive equipment/DME use and wage analyst and sock aide use to facilite improved performance of lower body dressing with independence and verbal cues. Transfer Training Problem:OT Functional Transfers Goal:Improved Functional Transfers Completed Instruct patient on safe transfers and proper techniques including recommend transfer tub bench for showers documented in this encounter [facility]'s home Plan of care note* Visit Details Visit Type -PT CASE MANAGEME NT VISIT Discipline -Physical Therapy Problems Problem Description Start Date Status Goals Interve ntions PT Impaired muscle performance and/or ROM Disciplines: PT 03/20/2024 Active 1 goal linked to scheduled/document ed intervention 1 goal intervention scheduled/document ed in this visit PT Impaired mobility Disciplines: PT 03/20/2024 Active 1 goal linked to scheduled/document ed intervention 1 goal intervention scheduled/document ed in this visit PT Impaired gait Disciplines: PT 03/20/2024 Active 1 goal linked to scheduled/document ed intervention 1 goal intervention scheduled/document ed in this visit PT Orthopedic Condition Disciplines: PT 03/20/2024 Active 1 goal linked to scheduled/document ed intervention 2 goal interventions scheduled/document ed in this visit PT Learning Assessment Disciplines: PT 03/20/2024 Active 1 goal linked to scheduled/document ed intervention 1 goal intervention scheduled/document ed in this visit Sepsis Disciplines: Skilled Services 03/20/2024 Active 1 goal linked to scheduled/document ed intervention 1 goal intervention scheduled/document ed in this visit Physician Specific Parameters Disciplines: Skilled Services 03/20/2024 Active 1 goal linked to scheduled/document ed intervention 1 goal intervention scheduled/document ed in this visit Risk for Falls Disciplines: Skilled Services 03/20/2024 Active 1 goal linked to scheduled/document ed intervention 1 goal intervention scheduled/document ed in this visit Goals Goal Associated Problem Outcome Goal Met? Visit Notes Improved Muscle Performance and/or ROM Description: Short term goal: Patient will demonstrate improved muscle performance to meet functional goals, to be achieved by 04/12/24. PT Impaired muscle performance and/or ROM No Improved Transfers Description: Short term goal: Patient will demonstrate safe transfers to/from bed, chair and toilet independently, to be achieved by 04/12/24. PT Impaired mobility No Improved Gait Description: STG: Patient will demonstrate improved gait ability as evidenced by ambulation 100 feet with front wheeled walker with supervision, in order to access all areas of the home, to be achieved by 04/05/24. LTG: Patient will demonstrate improved gait ability as evidenced by ambulation 150 feet with LRAD independently with AD, to return to safe community ambulation, to be achieved by 04/12/24. PT Impaired gait No Manage Orthopedic Condition Description: Improve patient and/or caregiver understanding of post surgical and/or non-surgical orthopedic intervention management as evidenced by patient and/or caregiver able to verbalize, demonstrate, and teach back instruction, to be achieved by 04/12/24. PT Orthopedic Condition No Demonstrate understanding of education Description: Patient and/or caregiver will understand educational instruction to be achieved by 04/12/24. PT Learning Assessment No Patient/caregiver will be able to identify and report symptoms of sepsis Description: Patient/caregiver will be able to identify signs/symptoms of sepsis infection and will verbalize actions to take if suspected by 05/18/24. Sepsis No Patient to maintain parameters within physician-specified ranges throughout certification period Physician Specific Parameters No Manage Risk for falls Description: Patient/caregiver will verbalize knowledge of individualized fall prevention strategies by 05/18/24. Risk for Falls No Interventions Intervention Associated Problem/Goal Status Variance Visit Notes Physical Therapy Therapeutic Exercises Problem:PT Impaired muscle performance and/or ROM Goal:Improved Muscle Performance and/or ROM Completed patient instructed on strengthening exercises including Supine : GS,QS,HS, HIPADD, HIP ABD, HEEL SLIDES, SAQ, SLR X 12 with verbal and tactile cues for technique . patient instructed to perform home exercise program twice a day which included hourly ambulation. Physical Therapy Transfer Training Problem:PT Impaired mobility Goal:Improved Transfers Completed Transfer training and instruction to patient on safe transfers to and from chair with supervision and verbal cues for technique . { Physical Therapy Gait Training Problem:PT Impaired gait Goal:Improved Gait Completed Gait training and instruction to patient on safe ambulation with front wheeled walker for 40' x 4 feet with stand by assist, with verbal cues for corrections of gait deviations including developing recip pattern . Instruct on orthopedic precautions and weight bearing restrictions Description: Weight bearing restrictions include: WBAT of involved extremity. Problem:PT Orthopedic Condition Goal:Manage Orthopedic Condition Completed patient instructed on orthopedic precautions and weight bearing restrictions. Instruct on management of edema Problem:PT Orthopedic Condition Goal:Manage Orthopedic Condition Completed Instruct patient on management of edema including elevation of LLE above the level of the heart and ice. Instruct and educate on knowledge deficits Problem:PT Learning Assessment Goal:Demonstrate understanding of education Completed patient verbalize and/or demonstrate understanding of physical therapy education including orthopedic condition management, weight bearing precautions, surgical precautions, pain management, fall prevention strategies, home safety, functional activity and home exercise program. Education methods include: verbal cues and written instructions. Further education required to improve knowledge and compliance with fall prevention strategies, home safety, functional activity and home exercise program. Risk of Sepsis Description: Patient is at risk for sepsis. Monitor closely for s/s of sepsis. Problem:Sepsis Goal:Patient/caregiver will be able to identify and report symptoms of sepsis Completed SPO2 Description: Notify Dr. Burch if pulse ox is <92% at rest. Problem:Physician Specific Parameters Goal:Patient to maintain parameters within physician-specified ranges throughout certification period Completed Instruct on individual fall risk factors and strategies to prevent falls and injuries caused by falls. Problem:Risk for Falls Goal:Manage Risk for falls Completed PT: Patient instructed on Eliminating Environmental Hazards: Keep pathways clear, Keep pets out of pathways, Remove unsafe rugs, Move furniture from pathways, Keep rooms and walkways well lit and Install hand rails/grab bars Managing Impaired Functional Mobility: Use assistive device(s): front wheeled walker Managing Pain documented in this encounter [facility]'s home Plan of care note* Visit Details Visit Type -SN EVAL Discipline -Retirement Problems Problem Description Start Date Status Goals Interve ntions Medication Education Disciplines: Skilled Services 03/20/2024 Active 1 goal linked to scheduled/document ed intervention 1 goal intervention scheduled/document ed in this visit Sepsis Disciplines: Skilled Services 03/20/2024 Active 1 goal linked to scheduled/document ed intervention 1 goal intervention scheduled/document ed in this visit Physician Specific Parameters Disciplines: Skilled Services 03/20/2024 Active 1 goal linked to scheduled/document ed intervention 1 goal intervention scheduled/document ed in this visit Risk for Falls Disciplines: Skilled Services 03/20/2024 Active 1 goal linked to scheduled/document ed intervention 1 goal intervention scheduled/document ed in this visit Pain Disciplines: Skilled Services 03/20/2024 Active 1 goal linked to scheduled/document ed intervention 1 goal intervention scheduled/document ed in this visit Nutrition/Hydr ation Disciplines: Skilled Services 03/20/2024 Active 1 goal linked to scheduled/document ed intervention 1 goal intervention scheduled/document ed in this visit High Risk Medications Disciplines: Skilled Services 03/20/2024 Active 1 goal linked to scheduled/document ed intervention 2 goal interventions scheduled/document ed in this visit Discharge Disciplines: Skilled Services 03/20/2024 Active 1 goal linked to scheduled/document ed intervention 2 goal interventions scheduled/document ed in this visit SN Referral Disciplines: Skilled Services 03/24/2024 Resolved on 03/24/2024 1 goal linked to scheduled/document ed intervention 1 goal intervention scheduled/document ed in this visit SN Integumentary/ Wounds Disciplines: SN 03/24/2024 Resolved on 03/24/2024 1 goal linked to scheduled/document ed intervention 1 goal intervention scheduled/document ed in this visit Goals Goal Associated Problem Outcome Goal Met? Visit Notes Patient/caregiver will demonstrate ability to obtain, store, identify and administer ordered medications, keep accurate medication list in home, and adhere to medication schedule Description: Patient/caregiver will demonstrate ability to obtain, store, identify and administer ordered medications, keep accurate medication list in home, and adhere to medication schedule by 05/18/24. Medication Education No Patient/caregiver will be able to identify and report symptoms of sepsis Description: Patient/caregiver will be able to identify signs/symptoms of sepsis infection and will verbalize actions to take if suspected by 05/18/24. Sepsis No Patient to maintain parameters within physician-specified ranges throughout certification period Physician Specific Parameters No Manage Risk for falls Description: Patient/caregiver will verbalize knowledge of individualized fall prevention strategies by 05/18/24. Risk for Falls No Manage Pain Description: Patient and/or caregiver will verbalize knowledge and understanding of appropriate techniques to control pain, including pain medication and non-pharmacological techniques. Patient will verbalize or demonstrate an acceptable level of pain as evidenced by pain of 2/10 or less at rest. To be achieved by 04/12/24. Pain No Manage Nutrition/Hydration Description: Patient/caregiver will verbalize/demonstrate knowledge of prescribed diet and/or healthy nutrition to be achieved by 05/18/24. Nutrition/Hydration No Patient/caregiver will teach back high risk medication side effect and precaution education Description: STG Patient/caregiver will verbalize understanding of high risk medication side effects and precautions to be achieved by 05/18/24. LTG Patient/caregiver will continue to verbalize understanding of high risk medication side effects and precautions throughout certification period. High Risk Medications No Manage discharge planning Description: Patient/caregiver will verbalize understanding of ongoing discharge plan provided related to disease management, arrangements for outpatient and/or community services, obtaining medications, supplies, and DME, as needed throughout certification period. Discharge No Patient will be referred to additional discipline as needed SN Referral Completed Yes Patient/Caregiver will have improved healing and be free of signs and symptoms of complications Description: Patient/caregiver will verbalize management strategies to promote wound healing & prevent complications as evidenced by improved healing & no complications by 03/24/24. SN Integumentary/Wounds Completed Yes Interventions Intervention Associated Problem/Goal Status Variance Visit Notes Medication Education Description: Evaluate/instruct patient/caregiver on obtaining, storing, identifying and administering ordered medications as well as keeping accurate medication list in the home and adhereing to medication schedule Problem:Medication Education Goal:Patient/caregive r will demonstrate ability to obtain, store, identify and administer ordered medications, keep accurate medication list in home, and adhere to medication schedule Completed Patient and Caregiver instructed on importance of keeping accurate medication list in home, need to take up-to-date medication list to all medical provider appointments and adhering to medication schedule. Risk of Sepsis Description: Patient is at risk for sepsis. Monitor closely for s/s of sepsis. Problem:Sepsis Goal:Patient/caregive r will be able to identify and report symptoms of sepsis Completed SPO2 Description: Notify Dr. Burch if pulse ox is <92% at rest. Problem:Physician Specific Parameters Goal:Patient to maintain parameters within physician-specified ranges throughout certification period Completed Instruct on individual fall risk factors and strategies to prevent falls and injuries caused by falls. Problem:Risk for Falls Goal:Manage Risk for falls Completed SN: Patient instructed on Eliminating Environmental Hazards: Keep pathways clear, Keep pets out of pathways, Remove unsafe rugs, Move furniture from pathways, Keep rooms and walkways well lit, Install hand rails/grab bars, Wear supportive shoes or non-skid socks and Keep frequently used items within reach Instruct on pain and instruct on strategies to control pain Problem:Pain Goal:Manage Pain Completed patient and caregiver instructed on techniques to control pain including Pharmacological measures and Non-Pharmacological measures; rest, positioning/elevation, mobility/therapeutic exercise, distraction and breathing/relaxation. Define patient s appetite/hydration status and implement strategies to improve compliance with prescribed diet and/or healthy nutrition. Problem:Nutrition/Hyd ration Goal:Manage Nutrition/Hydration Completed reinforced patient on implementing strategies to comply with prescribed diet, healthy nutrition and adequate hydration Opioids- educated on high risk medication Problem:High Risk Medications Goal:Patient/caregive r will teach back high risk medication side effect and precaution education Completed patient and caregiver educated on taking medication(s) as prescribed by provider. Do not stop medication or alter doses without speaking with your provider. Discuss medication effectiveness or side effect concerns with your provider and home care team. Only take opioids as prescribed, do not share your medications, and take proper precautions in storing and properly disposing of opioids once no longer needed. Possible side effects of opioid medication including sedation, decreased rate of breathing, and constipation. Report over sedation to prescribing provider and practice deep breathing techniques every hour while awake. Prevent constipation by increasing water and fiber intake, increasing activity as tolerated, and use stool softener(s) as prescribed. Antiplatelet- educated on high risk medication Problem:High Risk Medications Goal:Patient/caregive r will teach back high risk medication side effect and precaution education Completed patient and caregiver educated on taking medication(s) as prescribed by provider. Do not stop medication or alter doses without speaking with your provider. Discuss medication effectiveness or side effect concerns with your provider and home care team. Discuss all medications you are taking, even [id number] medicines, with your provider and pharmacist since many drugs can interact with antiplatelet medications. If you forget to take a dose, DO NOT take a double dose. Take the missed dose as soon as possible on the same day. DO NOT take a double dose the next day to make up for the missed dose. Watch for signs of abnormal or excessive bleeding and bruising (refer to Bleeding Precautions education). Call your health care provider right away if you suspect something is wrong. Instruct on ongoing discharge plan Problem:Discharge Goal:Manage discharge planning Completed Ongoing Discharge plan: Discharge plan discussed with patient including frequency and duration for home SN and plan for transition to: live independently at home without ongoing services. Instruct on importance of follow-up appts and continued monitoring with medical provider &/or chronic care clinic Problem:Discharge Goal:Manage discharge planning Completed Education provided on importance of compliance with follow-up appointment(s). Recommendations: patient/caregiver to follow up with scheduling appointment(s) for post-acute/primary care provider/chronic care clinic SN evaluation and treatment Description: Evaluate and treat for wound/skin management, suture removal & education. Problem:SN Referral Goal:Patient will be referred to additional discipline as needed Completed Remove sutures as ordered by physician Description: Remove sutures from LLE on 03/24/24. Problem:SN Integumentary/Wounds Goal:Patient/Caregive r will have improved healing and be free of signs and symptoms of complications Completed Completed. Patient did tolerate well. documented in this encounter [facility]'s home Plan of care note* Visit Details Visit Type -PORTRAIT STUDIO PHOTOGRAPHER ROUTINE Discipline -Physical Therapy Problems Problem Description Start Date Status Goals Interve ntions PT Impaired muscle performance and/or ROM Disciplines: PT 03/20/2024 Active 1 goal linked to scheduled/document ed intervention 1 goal intervention scheduled/document ed in this visit PT Impaired gait Disciplines: PT 03/20/2024 Active 2 goals linked to scheduled/document ed interventions 2 goal interventions scheduled/document ed in this visit PT Orthopedic Condition Disciplines: PT 03/20/2024 Active 1 goal linked to scheduled/document ed intervention 2 goal interventions scheduled/document ed in this visit PT Learning Assessment Disciplines: PT 03/20/2024 Active 1 goal linked to scheduled/document ed intervention 1 goal intervention scheduled/document ed in this visit Medication Education Disciplines: Skilled Services 03/20/2024 Active 1 goal linked to scheduled/document ed intervention 1 goal intervention scheduled/document ed in this visit Sepsis Disciplines: Skilled Services 03/20/2024 Active 1 goal linked to scheduled/document ed intervention 1 goal intervention scheduled/document ed in this visit Physician Specific Parameters Disciplines: Skilled Services 03/20/2024 Active 1 goal linked to scheduled/document ed intervention 1 goal intervention scheduled/document ed in this visit Risk for Falls Disciplines: Skilled Services 03/20/2024 Active 1 goal linked to scheduled/document ed intervention 1 goal intervention scheduled/document ed in this visit Pain Disciplines: Skilled Services 03/20/2024 Active 1 goal linked to scheduled/document ed intervention 1 goal intervention scheduled/document ed in this visit Discharge Disciplines: Skilled Services 03/20/2024 Active 1 goal linked to scheduled/document ed intervention 1 goal intervention scheduled/document ed in this visit Goals Goal Associated Problem Outcome Goal Met? Visit Notes Improved Muscle Performance and/or ROM Description: Short term goal: Patient will demonstrate improved muscle performance to meet functional goals, to be achieved by 04/12/24. PT Impaired muscle performance and/or ROM No Improved Stair Climbing Description: STG:: Patient will demonstrate improved stair negotiation as evidenced by ascend/descend 5 steps with railing Independently, to be achieved by 04/12/24. PT Impaired gait No Improved Gait Description: STG: Patient will demonstrate improved gait ability as evidenced by ambulation 100 feet with front wheeled walker with supervision, in order to access all areas of the home, to be achieved by 04/05/24. LTG: Patient will demonstrate improved gait ability as evidenced by ambulation 150 feet with LRAD independently with AD, to return to safe community ambulation, to be achieved by 04/12/24. PT Impaired gait No Manage Orthopedic Condition Description: Improve patient and/or caregiver understanding of post surgical and/or non-surgical orthopedic intervention management as evidenced by patient and/or caregiver able to verbalize, demonstrate, and teach back instruction, to be achieved by 04/12/24. PT Orthopedic Condition No Demonstrate understanding of education Description: Patient and/or caregiver will understand educational instruction to be achieved by 04/12/24. PT Learning Assessment No Patient/caregiver will demonstrate ability to obtain, store, identify and administer ordered medications, keep accurate medication list in home, and adhere to medication schedule Description: Patient/caregiver will demonstrate ability to obtain, store, identify and administer ordered medications, keep accurate medication list in home, and adhere to medication schedule by 05/18/24. Medication Education No Patient/caregiver will be able to identify and report symptoms of sepsis Description: Patient/caregiver will be able to identify signs/symptoms of sepsis infection and will verbalize actions to take if suspected by 05/18/24. Sepsis No Patient to maintain parameters within physician-specified ranges throughout certification period Physician Specific Parameters No Manage Risk for falls Description: Patient/caregiver will verbalize knowledge of individualized fall prevention strategies by 05/18/24. Risk for Falls No Manage Pain Description: Patient and/or caregiver will verbalize knowledge and understanding of appropriate techniques to control pain, including pain medication and non-pharmacological techniques. Patient will verbalize or demonstrate an acceptable level of pain as evidenced by pain of 2/10 or less at rest. To be achieved by 04/12/24. Pain No Manage discharge planning Description: Patient/caregiver will verbalize understanding of ongoing discharge plan provided related to disease management, arrangements for outpatient and/or community services, obtaining medications, supplies, and DME, as needed throughout certification period. Discharge No Interventions Intervention Associated Problem/Goal Status Variance Visit Notes Physical Therapy Therapeutic Exercises Problem:PT Impaired muscle performance and/or ROM Goal:Improved Muscle Performance and/or ROM Completed patient and caregiver instructed on strengthening and range of motion exercises including ankle pumps, quad and glut sets, hip abd and add, saq and heel slides x's 10 each. standing left hams curl x's 10. step flexion stretch x'5 w/ 10sec hold. with verbal and visual cues for form and progressions. patient and caregiver instructed to perform home exercise program twice a day which included above ex. Physical Therapy Stair Training Problem:PT Impaired gait Goal:Improved Stair Climbing Completed Stair training and instruction to patient and caregiver on safe stair climbing, ascend/descend 5 steps, with railing and with crutch with stand by assist and verbal cues for correct technique. Physical Therapy Gait Training Problem:PT Impaired gait Goal:Improved Gait Completed Gait training and instruction to patient and caregiver on safe ambulation with front wheeled walker for 4x'50 feet with supervision, with verbal cues for corrections of gait deviations including heel to toe and increased step length. Instruct on orthopedic precautions and weight bearing restrictions Description: Weight bearing restrictions include: WBAT of involved extremity. Problem:PT Orthopedic Condition Goal:Manage Orthopedic Condition Completed patient instructed on orthopedic precautions. Instruct on management of edema Problem:PT Orthopedic Condition Goal:Manage Orthopedic Condition Completed Instruct patient and caregiver on management of edema including elevation of lle above the level of the heart and ice. Instruct and educate on knowledge deficits Problem:PT Learning Assessment Goal:Demonstrate understanding of education Completed patient and caregiver verbalize and/or demonstrate understanding of physical therapy education including functional activity and home exercise program. Education methods include: verbal cues and visual cues. Further education required to improve knowledge and compliance with home exercise program. Medication Education Description: Evaluate/instruct patient/caregiver on obtaining, storing, identifying and administering ordered medications as well as keeping accurate medication list in the home and adhereing to medication schedule Problem:Medication Education Goal:Patient/caregive r will demonstrate ability to obtain, store, identify and administer ordered medications, keep accurate medication list in home, and adhere to medication schedule Completed Patient and Caregiver instructed on adhering to medication schedule. Risk of Sepsis Description: Patient is at risk for sepsis. Monitor closely for s/s of sepsis. Problem:Sepsis Goal:Patient/caregive r will be able to identify and report symptoms of sepsis Completed SPO2 Description: Notify Dr. Burch if pulse ox is <92% at rest. Problem:Physician Specific Parameters Goal:Patient to maintain parameters within physician-specified ranges throughout certification period Completed Instruct on individual fall risk factors and strategies to prevent falls and injuries caused by falls. Problem:Risk for Falls Goal:Manage Risk for falls Completed PT: Patient and Caregiver instructed on Managing Impaired Functional Mobility: Use assistive device(s): front wheeled walker Instruct on pain and instruct on strategies to control pain Problem:Pain Goal:Manage Pain Completed patient and caregiver instructed on techniques to control pain including Pharmacological measures and Non-Pharmacological measures; positioning/elevation and use of thermal modalities, apply ice to affected area for the following prescribed frequency: lle. Instruct on ongoing discharge plan Problem:Discharge Goal:Manage discharge planning Completed Ongoing Discharge plan: Discharge plan discussed with patient and caregiver including frequency and duration for home PT and plan for transition to: outpatient therapy. documented in this encounter [facility]'s home Plan of care note* Visit Details Visit Type -PORTRAIT STUDIO PHOTOGRAPHER ROUTINE Discipline -Physical Therapy Problems Problem Description Start Date Status Goals Interve ntions PT Impaired muscle performance and/or ROM Disciplines: PT 03/20/2024 Active 1 goal linked to scheduled/document ed intervention 1 goal intervention scheduled/document ed in this visit PT Impaired gait Disciplines: PT 03/20/2024 Active 1 goal linked to scheduled/document ed intervention 1 goal intervention scheduled/document ed in this visit PT Orthopedic Condition Disciplines: PT 03/20/2024 Active 1 goal linked to scheduled/document ed intervention 1 goal intervention scheduled/document ed in this visit PT Learning Assessment Disciplines: PT 03/20/2024 Active 1 goal linked to scheduled/document ed intervention 1 goal intervention scheduled/document ed in this visit Medication Education Disciplines: Skilled Services 03/20/2024 Active 1 goal linked to scheduled/document ed intervention 1 goal intervention scheduled/document ed in this visit Sepsis Disciplines: Skilled Services 03/20/2024 Active 1 goal linked to scheduled/document ed intervention 1 goal intervention scheduled/document ed in this visit Physician Specific Parameters Disciplines: Skilled Services 03/20/2024 Active 1 goal linked to scheduled/document ed intervention 1 goal intervention scheduled/document ed in this visit Risk for Falls Disciplines: Skilled Services 03/20/2024 Active 1 goal linked to scheduled/document ed intervention 1 goal intervention scheduled/document ed in this visit Pain Disciplines: Skilled Services 03/20/2024 Active 1 goal linked to scheduled/document ed intervention 1 goal intervention scheduled/document ed in this visit Discharge Disciplines: Skilled Services 03/20/2024 Active 1 goal linked to scheduled/document ed intervention 2 goal interventions scheduled/document ed in this visit Goals Goal Associated Problem Outcome Goal Met? Visit Notes Improved Muscle Performance and/or ROM Description: Short term goal: Patient will demonstrate improved muscle performance to meet functional goals, to be achieved by 04/12/24. PT Impaired muscle performance and/or ROM No Improved Gait Description: STG: Patient will demonstrate improved gait ability as evidenced by ambulation 100 feet with front wheeled walker with supervision, in order to access all areas of the home, to be achieved by 04/05/24. LTG: Patient will demonstrate improved gait ability as evidenced by ambulation 150 feet with LRAD independently with AD, to return to safe community ambulation, to be achieved by 04/12/24. PT Impaired gait No Manage Orthopedic Condition Description: Improve patient and/or caregiver understanding of post surgical and/or non-surgical orthopedic intervention management as evidenced by patient and/or caregiver able to verbalize, demonstrate, and teach back instruction, to be achieved by 04/12/24. PT Orthopedic Condition No Demonstrate understanding of education Description: Patient and/or caregiver will understand educational instruction to be achieved by 04/12/24. PT Learning Assessment No Patient/caregiver will demonstrate ability to obtain, store, identify and administer ordered medications, keep accurate medication list in home, and adhere to medication schedule Description: Patient/caregiver will demonstrate ability to obtain, store, identify and administer ordered medications, keep accurate medication list in home, and adhere to medication schedule by 05/18/24. Medication Education No Patient/caregiver will be able to identify and report symptoms of sepsis Description: Patient/caregiver will be able to identify signs/symptoms of sepsis infection and will verbalize actions to take if suspected by 05/18/24. Sepsis No Patient to maintain parameters within physician-specified ranges throughout certification period Physician Specific Parameters No Manage Risk for falls Description: Patient/caregiver will verbalize knowledge of individualized fall prevention strategies by 05/18/24. Risk for Falls No Manage Pain Description: Patient and/or caregiver will verbalize knowledge and understanding of appropriate techniques to control pain, including pain medication and non-pharmacological techniques. Patient will verbalize or demonstrate an acceptable level of pain as evidenced by pain of 2/10 or less at rest. To be achieved by 04/12/24. Pain No Manage discharge planning Description: Patient/caregiver will verbalize understanding of ongoing discharge plan provided related to disease management, arrangements for outpatient and/or community services, obtaining medications, supplies, and DME, as needed throughout certification period. Discharge No Interventions Intervention Associated Problem/Goal Status Variance Visit Notes Physical Therapy Therapeutic Exercises Problem:PT Impaired muscle performance and/or ROM Goal:Improved Muscle Performance and/or ROM Completed patient instructed on strengthening and range of motion exercises including amadou standing heel, toe raises, hip abd and flexion, hams curls and 1/2 squats x's 10 each. step flexion stretch and seated heel slides x's 10 each with verbal, tactile, visual and written cues for form and progressions. patient instructed to perform home exercise program twice a day which included above ex. Physical Therapy Gait Training Problem:PT Impaired gait Goal:Improved Gait Completed Gait training and instruction to patient on safe ambulation with front wheeled walker for 4x's30 feet with supervision, with verbal cues for corrections of gait deviations including heel to toe pattern, increased stride length and weight shifting to LLE. Instruct on management of edema Problem:PT Orthopedic Condition Goal:Manage Orthopedic Condition Completed Instruct patient on management of edema including elevation of LLE above the level of the heart and ice. Instruct and educate on knowledge deficits Problem:PT Learning Assessment Goal:Demonstrate understanding of education Completed patient verbalize and/or demonstrate understanding of physical therapy education including home exercise program. Education methods include: verbal cues, tactile cues, written instructions and visual cues. Further education required to improve knowledge and compliance with home exercise program. Medication Education Description: Evaluate/instruct patient/caregiver on obtaining, storing, identifying and administering ordered medications as well as keeping accurate medication list in the home and adhereing to medication schedule Problem:Medication Education Goal:Patient/caregive r will demonstrate ability to obtain, store, identify and administer ordered medications, keep accurate medication list in home, and adhere to medication schedule Completed Patient instructed on importance of keeping accurate medication list in home. Risk of Sepsis Description: Patient is at risk for sepsis. Monitor closely for s/s of sepsis. Problem:Sepsis Goal:Patient/caregive r will be able to identify and report symptoms of sepsis Completed SPO2 Description: Notify Dr. Burch if pulse ox is <92% at rest. Problem:Physician Specific Parameters Goal:Patient to maintain parameters within physician-specified ranges throughout certification period Completed Instruct on individual fall risk factors and strategies to prevent falls and injuries caused by falls. Problem:Risk for Falls Goal:Manage Risk for falls Completed PT: Patient instructed on Eliminating Environmental Hazards: Keep pathways clear and Keep pets out of pathways Instruct on pain and instruct on strategies to control pain Problem:Pain Goal:Manage Pain Completed patient instructed on techniques to control pain including Pharmacological measures and Non-Pharmacological measures; positioning/elevation and use of thermal modalities, apply ice to affected area for the following prescribed frequency: prn. Instruct on ongoing discharge plan Problem:Discharge Goal:Manage discharge planning Completed Ongoing Discharge plan: Discharge plan discussed with patient including frequency and duration for home PT and plan for transition to: outpatient therapy. Instruct on importance of follow-up appts and continued monitoring with medical provider &/or chronic care clinic Problem:Discharge Goal:Manage discharge planning Completed Education provided on importance of compliance with follow-up appointment(s). Recommendations: appointment scheduled for OP PT 04/17/24 at 12:15pm documented in this encounter [facility]'s home Plan of care note* Visit Details Visit Type -PORTRAIT STUDIO PHOTOGRAPHER ROUTINE Discipline -Physical Therapy Problems Problem Description Start Date Status Goals Interve ntions PT Impaired muscle performance and/or ROM Disciplines: PT 03/20/2024 Active 1 goal linked to scheduled/document ed intervention 1 goal intervention scheduled/document ed in this visit PT Impaired gait Disciplines: PT 03/20/2024 Active 1 goal linked to scheduled/document ed intervention 1 goal intervention scheduled/document ed in this visit PT Impaired balance Disciplines: PT 03/20/2024 Active 1 goal linked to scheduled/document ed intervention 1 goal intervention scheduled/document ed in this visit PT Orthopedic Condition Disciplines: PT 03/20/2024 Active 1 goal linked to scheduled/document ed intervention 1 goal intervention scheduled/document ed in this visit PT Learning Assessment Disciplines: PT 03/20/2024 Active 1 goal linked to scheduled/document ed intervention 1 goal intervention scheduled/document ed in this visit Medication Education Disciplines: Skilled Services 03/20/2024 Active 1 goal linked to scheduled/document ed intervention 1 goal intervention scheduled/document ed in this visit Sepsis Disciplines: Skilled Services 03/20/2024 Active 1 goal linked to scheduled/document ed intervention 1 goal intervention scheduled/document ed in this visit Physician Specific Parameters Disciplines: Skilled Services 03/20/2024 Active 1 goal linked to scheduled/document ed intervention 1 goal intervention scheduled/document ed in this visit Risk for Falls Disciplines: Skilled Services 03/20/2024 Active 1 goal linked to scheduled/document ed intervention 1 goal intervention scheduled/document ed in this visit Pain Disciplines: Skilled Services 03/20/2024 Active 1 goal linked to scheduled/document ed intervention 1 goal intervention scheduled/document ed in this visit Discharge Disciplines: Skilled Services 03/20/2024 Active 1 goal linked to scheduled/document ed intervention 1 goal intervention scheduled/document ed in this visit Goals Goal Associated Problem Outcome Goal Met? Visit Notes Improved Muscle Performance and/or ROM Description: Short term goal: Patient will demonstrate improved muscle performance to meet functional goals, to be achieved by 04/12/24. PT Impaired muscle performance and/or ROM No Improved Gait Description: STG: Patient will demonstrate improved gait ability as evidenced by ambulation 100 feet with front wheeled walker with supervision, in order to access all areas of the home, to be achieved by 04/05/24. LTG: Patient will demonstrate improved gait ability as evidenced by ambulation 150 feet with LRAD independently with AD, to return to safe community ambulation, to be achieved by 04/12/24. PT Impaired gait No Improved Balance Description: Short term goal: Patient will demonstrate improved standing balance and functional ability as evidenced by no falls during PT POC, to be achieved by 04/12/24. PT Impaired balance No Manage Orthopedic Condition Description: Improve patient and/or caregiver understanding of post surgical and/or non-surgical orthopedic intervention management as evidenced by patient and/or caregiver able to verbalize, demonstrate, and teach back instruction, to be achieved by 04/12/24. PT Orthopedic Condition No Demonstrate understanding of education Description: Patient and/or caregiver will understand educational instruction to be achieved by 04/12/24. PT Learning Assessment No Patient/caregiver will demonstrate ability to obtain, store, identify and administer ordered medications, keep accurate medication list in home, and adhere to medication schedule Description: Patient/caregiver will demonstrate ability to obtain, store, identify and administer ordered medications, keep accurate medication list in home, and adhere to medication schedule by 05/18/24. Medication Education No Patient/caregiver will be able to identify and report symptoms of sepsis Description: Patient/caregiver will be able to identify signs/symptoms of sepsis infection and will verbalize actions to take if suspected by 05/18/24. Sepsis No Patient to maintain parameters within physician-specified ranges throughout certification period Physician Specific Parameters No Manage Risk for falls Description: Patient/caregiver will verbalize knowledge of individualized fall prevention strategies by 05/18/24. Risk for Falls No Manage Pain Description: Patient and/or caregiver will verbalize knowledge and understanding of appropriate techniques to control pain, including pain medication and non-pharmacological techniques. Patient will verbalize or demonstrate an acceptable level of pain as evidenced by pain of 2/10 or less at rest. To be achieved by 04/12/24. Pain No Manage discharge planning Description: Patient/caregiver will verbalize understanding of ongoing discharge plan provided related to disease management, arrangements for outpatient and/or community services, obtaining medications, supplies, and DME, as needed throughout certification period. Discharge No Interventions Intervention Associated Problem/Goal Status Variance Visit Notes Physical Therapy Therapeutic Exercises Problem:PT Impaired muscle performance and/or ROM Goal:Improved Muscle Performance and/or ROM Completed patient instructed on strengthening and range of motion exercises including amadou stnding heel toe raises, hip abd and flexion, hams curls, 1/4 squats x's 10 each. step ups x's 5 each. seated heel slides x's 10 with verbal, visual and written cues for form and weight shifts. patient instructed to perform home exercise program twice a day which included above ex . Physical Therapy Gait Training Problem:PT Impaired gait Goal:Improved Gait Completed Gait training and instruction to patient on safe ambulation with front wheeled walker and crutch for 3x's 30 feet with supervision and stand by assist, with verbal cues for corrections of gait deviations including weight shifting and correct crutch use. Physical Therapy Balance Training Problem:PT Impaired balance Goal:Improved Balance Completed Developed, implemented, and instructed patient on standing balance exercises including 1 crutch training. Instruct on management of edema Problem:PT Orthopedic Condition Goal:Manage Orthopedic Condition Completed Instruct patient on management of edema including elevation of lle above the level of the heart and ice. Instruct and educate on knowledge deficits Problem:PT Learning Assessment Goal:Demonstrate understanding of education Completed patient verbalize and/or demonstrate understanding of physical therapy education including home exercise program. Education methods include: verbal cues, written instructions and visual cues. Further education required to improve knowledge and compliance with home exercise program. Medication Education Description: Evaluate/instruct patient/caregiver on obtaining, storing, identifying and administering ordered medications as well as keeping accurate medication list in the home and adhereing to medication schedule Problem:Medication Education Goal:Patient/caregive r will demonstrate ability to obtain, store, identify and administer ordered medications, keep accurate medication list in home, and adhere to medication schedule Completed Patient instructed on importance of keeping accurate medication list in home. Risk of Sepsis Description: Patient is at risk for sepsis. Monitor closely for s/s of sepsis. Problem:Sepsis Goal:Patient/caregive r will be able to identify and report symptoms of sepsis Completed SPO2 Description: Notify Dr. Burch if pulse ox is <92% at rest. Problem:Physician Specific Parameters Goal:Patient to maintain parameters within physician-specified ranges throughout certification period Completed Instruct on individual fall risk factors and strategies to prevent falls and injuries caused by falls. Problem:Risk for Falls Goal:Manage Risk for falls Completed PT: Patient instructed on Managing Impaired Functional Mobility: Use assistive device(s): crutcheand front wheeled walker Managing Pain Instruct on pain and instruct on strategies to control pain Problem:Pain Goal:Manage Pain Completed patient instructed on techniques to control pain including Pharmacological measures and Non-Pharmacological measures; positioning/elevation and use of thermal modalities, apply ice to affected area for the following prescribed frequency: prn. Instruct on ongoing discharge plan Problem:Discharge Goal:Manage discharge planning Completed Ongoing Discharge plan: Discharge plan discussed with patient including frequency and duration for home PT and plan for transition to: outpatient therapy. [facility] Visit Details Visit Type -PORTRAIT STUDIO PHOTOGRAPHER ROUTINE Discipline -Physical Therapy Problems Problem Description Start Date Status Goals Interve ntions PT Impaired muscle performance and/or ROM Disciplines: PT 03/20/2024 Active 1 goal linked to scheduled/document ed intervention 1 goal intervention scheduled/document ed in this visit PT Impaired gait Disciplines: PT 03/20/2024 Active 2 goals linked to scheduled/document ed interventions 2 goal interventions scheduled/document ed in this visit PT Impaired balance Disciplines: PT 03/20/2024 Active 1 goal linked to scheduled/document ed intervention 1 goal intervention scheduled/document ed in this visit PT Orthopedic Condition Disciplines: PT 03/20/2024 Active 1 goal linked to scheduled/document ed intervention 1 goal intervention scheduled/document ed in this visit PT Learning Assessment Disciplines: PT 03/20/2024 Active 1 goal linked to scheduled/document ed intervention 1 goal intervention scheduled/document ed in this visit Medication Education Disciplines: Skilled Services 03/20/2024 Active 1 goal linked to scheduled/document ed intervention 1 goal intervention scheduled/document ed in this visit Sepsis Disciplines: Skilled Services 03/20/2024 Active 1 goal linked to scheduled/document ed intervention 1 goal intervention scheduled/document ed in this visit Physician Specific Parameters Disciplines: Skilled Services 03/20/2024 Active 1 goal linked to scheduled/document ed intervention 1 goal intervention scheduled/document ed in this visit Risk for Falls Disciplines: Skilled Services 03/20/2024 Active 1 goal linked to scheduled/document ed intervention 1 goal intervention scheduled/document ed in this visit Pain Disciplines: Skilled Services 03/20/2024 Active 1 goal linked to scheduled/document ed intervention 1 goal intervention scheduled/document ed in this visit Discharge Disciplines: Skilled Services 03/20/2024 Active 1 goal linked to scheduled/document ed intervention 1 goal intervention scheduled/document ed in this visit Goals Goal Associated Problem Outcome Goal Met? Visit Notes Improved Muscle Performance and/or ROM Description: Short term goal: Patient will demonstrate improved muscle performance to meet functional goals, to be achieved by 04/12/24. PT Impaired muscle performance and/or ROM No Improved Stair Climbing Description: STG:: Patient will demonstrate improved stair negotiation as evidenced by ascend/descend 5 steps with railing Independently, to be achieved by 04/12/24. PT Impaired gait No Improved Gait Description: STG: Patient will demonstrate improved gait ability as evidenced by ambulation 100 feet with front wheeled walker with supervision, in order to access all areas of the home, to be achieved by 04/05/24. LTG: Patient will demonstrate improved gait ability as evidenced by ambulation 150 feet with LRAD independently with AD, to return to safe community ambulation, to be achieved by 04/12/24. PT Impaired gait No Improved Balance Description: Short term goal: Patient will demonstrate improved standing balance and functional ability as evidenced by no falls during PT POC, to be achieved by 04/12/24. PT Impaired balance No Manage Orthopedic Condition Description: Improve patient and/or caregiver understanding of post surgical and/or non-surgical orthopedic intervention management as evidenced by patient and/or caregiver able to verbalize, demonstrate, and teach back instruction, to be achieved by 04/12/24. PT Orthopedic Condition No Demonstrate understanding of education Description: Patient and/or caregiver will understand educational instruction to be achieved by 04/12/24. PT Learning Assessment No Patient/caregiver will demonstrate ability to obtain, store, identify and administer ordered medications, keep accurate medication list in home, and adhere to medication schedule Description: Patient/caregiver will demonstrate ability to obtain, store, identify and administer ordered medications, keep accurate medication list in home, and adhere to medication schedule by 05/18/24. Medication Education No Patient/caregiver will be able to identify and report symptoms of sepsis Description: Patient/caregiver will be able to identify signs/symptoms of sepsis infection and will verbalize actions to take if suspected by 05/18/24. Sepsis No Patient to maintain parameters within physician-specified ranges throughout certification period Physician Specific Parameters No Manage Risk for falls Description: Patient/caregiver will verbalize knowledge of individualized fall prevention strategies by 05/18/24. Risk for Falls No Manage Pain Description: Patient and/or caregiver will verbalize knowledge and understanding of appropriate techniques to control pain, including pain medication and non-pharmacological techniques. Patient will verbalize or demonstrate an acceptable level of pain as evidenced by pain of 2/10 or less at rest. To be achieved by 04/12/24. Pain No Manage discharge planning Description: Patient/caregiver will verbalize understanding of ongoing discharge plan provided related to disease management, arrangements for outpatient and/or community services, obtaining medications, supplies, and DME, as needed throughout certification period. Discharge No Interventions Intervention Associated Problem/Goal Status Variance Visit Notes Physical Therapy Therapeutic Exercises Problem:PT Impaired muscle performance and/or ROM Goal:Improved Muscle Performance and/or ROM Completed patient instructed on strengthening and range of motion exercises including amadou standing heel toe raises, hip abd , flexion, hams curls and 1/2 squats x's 15 each, step ups x's 10 each, step flexion stretch and seated heel slides x's 10 each with verbal, tactile and visual cues for encouraging lle wb. patient instructed to perform home exercise program twice a day which included above ex. Physical Therapy Stair Training Problem:PT Impaired gait Goal:Improved Stair Climbing Patient requested to defer to next visit Physical Therapy Gait Training Problem:PT Impaired gait Goal:Improved Gait Completed Gait training and instruction to patient on safe ambulation with front wheeled walker and crutch for 4x's 60 feet with supervision, with verbal, tactile and visual cues for corrections of gait deviations including heel to toe and weight shifting. Physical Therapy Balance Training Problem:PT Impaired balance Goal:Improved Balance Completed Developed, implemented, and instructed patient on standing balance exercises including amadou standing ex and 1 crutch . Instruct on management of edema Problem:PT Orthopedic Condition Goal:Manage Orthopedic Condition Completed Instruct patient on management of edema including elevation of lle above the level of the heart and ice. Instruct and educate on knowledge deficits Problem:PT Learning Assessment Goal:Demonstrate understanding of education Completed patient verbalize and/or demonstrate understanding of physical therapy education including pain management and home exercise program. Education methods include: verbal cues, tactile cues and visual cues. Further education required to improve knowledge and compliance with home exercise program. Medication Education Description: Evaluate/instruct patient/caregiver on obtaining, storing, identifying and administering ordered medications as well as keeping accurate medication list in the home and adhereing to medication schedule Problem:Medication Education Goal:Patient/caregi maninder will demonstrate ability to obtain, store, identify and administer ordered medications, keep accurate medication list in home, and adhere to medication schedule Completed Patient instructed on importance of keeping accurate medication list in home. Risk of Sepsis Description: Patient is at risk for sepsis. Monitor closely for s/s of sepsis. Problem:Sepsis Goal:Patient/caregi maninder will be able to identify and report symptoms of sepsis Completed SPO2 Description: Notify Dr. Burhc if pulse ox is <92% at rest. Problem:Physician Specific Parameters Goal:Patient to maintain parameters within physician-specified ranges throughout certification period Completed Instruct on individual fall risk factors and strategies to prevent falls and injuries caused by falls. Problem:Risk for Falls Goal:Manage Risk for falls Completed PT: Patient instructed on Eliminating Environmental Hazards: Keep pathways clear and Keep pets out of pathways Instruct on pain and instruct on strategies to control pain Problem:Pain Goal:Manage Pain Completed patient instructed on techniques to control pain including Pharmacological measures and Non-Pharmacological measures; positioning/elevatio n and use of thermal modalities, apply ice to affected area for the following prescribed frequency: prn. Instruct on ongoing discharge plan Problem:Discharge Goal:Manage discharge planning Completed Ongoing Discharge plan: Discharge plan discussed with patient including frequency and duration for home PT and plan for transition to: outpatient therapy. [facility] Visit Details Visit Type -PT AGENCY DC W V ISIT Discipline -Physical Therapy Problems Problem Description Start Date Status Goals Interve ntions PT Impaired muscle performance and/or ROM Disciplines: PT 03/20/2024 Resolved on 04/10/2024 1 goal linked to scheduled/document ed intervention 1 goal intervention scheduled/document ed in this visit PT Impaired mobility Disciplines: PT 03/20/2024 Resolved on 04/10/2024 2 goals linked to scheduled/document ed interventions 2 goal interventions scheduled/document ed in this visit PT Impaired gait Disciplines: PT 03/20/2024 Resolved on 04/10/2024 2 goals linked to scheduled/document ed interventions 2 goal interventions scheduled/document ed in this visit PT Impaired balance Disciplines: PT 03/20/2024 Resolved on 04/10/2024 1 goal linked to scheduled/document ed intervention 1 goal intervention scheduled/document ed in this visit PT Orthopedic Condition Disciplines: PT 03/20/2024 Resolved on 04/10/2024 1 goal linked to scheduled/document ed intervention 2 goal interventions scheduled/document ed in this visit PT Learning Assessment Disciplines: PT 03/20/2024 Resolved on 04/10/2024 1 goal linked to scheduled/document ed intervention 1 goal intervention scheduled/document ed in this visit Medication Education Disciplines: Skilled Services 03/20/2024 Resolved on 04/10/2024 1 goal linked to scheduled/document ed intervention Sepsis Disciplines: Skilled Services 03/20/2024 Resolved on 04/10/2024 1 goal linked to scheduled/document ed intervention 1 goal intervention scheduled/document ed in this visit OT Referral Disciplines: Skilled Services 03/20/2024 Resolved on 04/10/2024 1 goal linked to scheduled/document ed intervention Physician Specific Parameters Disciplines: Skilled Services 03/20/2024 Resolved on 04/10/2024 1 goal linked to scheduled/document ed intervention 1 goal intervention scheduled/document ed in this visit Risk for Falls Disciplines: Skilled Services 03/20/2024 Resolved on 04/10/2024 1 goal linked to scheduled/document ed intervention 1 goal intervention scheduled/document ed in this visit Pain Disciplines: Skilled Services 03/20/2024 Resolved on 04/10/2024 1 goal linked to scheduled/document ed intervention 1 goal intervention scheduled/document ed in this visit Nutrition/Hydrat ion Disciplines: Skilled Services 03/20/2024 Resolved on 04/10/2024 1 goal linked to scheduled/document ed intervention High Risk Medications Disciplines: Skilled Services 03/20/2024 Resolved on 04/10/2024 1 goal linked to scheduled/document ed intervention Discharge Disciplines: Skilled Services 03/20/2024 Resolved on 04/10/2024 1 goal linked to scheduled/document ed intervention 1 goal intervention scheduled/document ed in this visit Goals Goal Associated Problem Outcome Goal Met? Visit Notes Improved Muscle Performance and/or ROM Description: Short term goal: Patient will demonstrate improved muscle performance to meet functional goals, to be achieved by 04/12/24. PT Impaired muscle performance and/or ROM Completed Yes Improved Transfers Description: Short term goal: Patient will demonstrate safe transfers to/from bed, chair and toilet independently, to be achieved by 04/12/24. PT Impaired mobility Completed Yes Improved Bed Mobility Description: STG: Patient will demonstrate improved bed mobility, ability to position self and supine <> sit independently to be achieved by 04/12/24. PT Impaired mobility Completed Yes Improved Stair Climbing Description: STG:: Patient will demonstrate improved stair negotiation as evidenced by ascend/descend 5 steps with railing Independently, to be achieved by 04/12/24. PT Impaired gait Completed Yes Improved Gait Description: STG: Patient will demonstrate improved gait ability as evidenced by ambulation 100 feet with front wheeled walker with supervision, in order to access all areas of the home, to be achieved by 04/05/24. LTG: Patient will demonstrate improved gait ability as evidenced by ambulation 150 feet with LRAD independently with AD, to return to safe community ambulation, to be achieved by 04/12/24. PT Impaired gait Completed Yes Improved Balance Description: Short term goal: Patient will demonstrate improved standing balance and functional ability as evidenced by no falls during PT POC, to be achieved by 04/12/24. PT Impaired balance Completed Yes Manage Orthopedic Condition Description: Improve patient and/or caregiver understanding of post surgical and/or non-surgical orthopedic intervention management as evidenced by patient and/or caregiver able to verbalize, demonstrate, and teach back instruction, to be achieved by 04/12/24. PT Orthopedic Condition Completed Yes Demonstrate understanding of education Description: Patient and/or caregiver will understand educational instruction to be achieved by 04/12/24. PT Learning Assessment Completed Yes Patient/caregiver will demonstrate ability to obtain, store, identify and administer ordered medications, keep accurate medication list in home, and adhere to medication schedule Description: Patient/caregiver will demonstrate ability to obtain, store, identify and administer ordered medications, keep accurate medication list in home, and adhere to medication schedule by 05/18/24. Medication Education Completed Yes Patient/caregiver will be able to identify and report symptoms of sepsis Description: Patient/caregiver will be able to identify signs/symptoms of sepsis infection and will verbalize actions to take if suspected by 05/18/24. Sepsis Completed Yes Patient will be referred to additional discipline as needed OT Referral Completed Yes Patient to maintain parameters within physician-specified ranges throughout certification period Physician Specific Parameters Completed Yes Manage Risk for falls Description: Patient/caregiver will verbalize knowledge of individualized fall prevention strategies by 05/18/24. Risk for Falls Completed Yes Manage Pain Description: Patient and/or caregiver will verbalize knowledge and understanding of appropriate techniques to control pain, including pain medication and non-pharmacological techniques. Patient will verbalize or demonstrate an acceptable level of pain as evidenced by pain of 2/10 or less at rest. To be achieved by 04/12/24. Pain Completed Yes Manage Nutrition/Hydration Description: Patient/caregiver will verbalize/demonstrate knowledge of prescribed diet and/or healthy nutrition to be achieved by 05/18/24. Nutrition/Hydration Completed Yes Patient/caregiver will teach back high risk medication side effect and precaution education Description: STG Patient/caregiver will verbalize understanding of high risk medication side effects and precautions to be achieved by 05/18/24. LTG Patient/caregiver will continue to verbalize understanding of high risk medication side effects and precautions throughout certification period. High Risk Medications Completed Yes Manage discharge planning Description: Patient/caregiver will verbalize understanding of ongoing discharge plan provided related to disease management, arrangements for outpatient and/or community services, obtaining medications, supplies, and DME, as needed throughout certification period. Discharge Completed Yes Interventions Intervention Associated Problem/Goal Status Variance Visit Notes Physical Therapy Therapeutic Exercises Problem:PT Impaired muscle performance and/or ROM Goal:Improved Muscle Performance and/or ROM Completed patient instructed on strengthening and range of motion exercises including amadou standing heel toe raises, hip abd , flexion, hams curls and 1/2 squats x's 15 each, step ups x's 10 each, step flexion stretch and seated heel slides x's 10 each with verbal, tactile and visual cues for encouraging lle wb. patient instructed to perform home exercise program twice a day which included above ex. Physical Therapy Transfer Training Problem:PT Impaired mobility Goal:Improved Transfers Completed ITZ transfers wtih sfae/proper technique Physical Therapy Bed Mobility Training Problem:PT Impaired mobility Goal:Improved Bed Mobility Completed ITZ bed mobility Physical Therapy Stair Training Problem:PT Impaired gait Goal:Improved Stair Climbing Completed up and steps with rail+ crutch step together techniquie Physical Therapy Gait Training Problem:PT Impaired gait Goal:Improved Gait Completed Indep amb with WW or single crutch with steady recip pattern Physical Therapy Balance Training Problem:PT Impaired balance Goal:Improved Balance Completed pt demonstrates improved dynamic standing balacen as evidenced by a tug of 24 Instruct on orthopedic precautions and weight bearing restrictions Description: Weight bearing restrictions include: WBAT of involved extremity. Problem:PT Orthopedic Condition Goal:Manage Orthopedic Condition Completed patient instructed on orthopedic precautions and weight bearing restrictions. Instruct on management of edema Problem:PT Orthopedic Condition Goal:Manage Orthopedic Condition Completed Instruct patient on management of edema including elevation of LLE above the level of the heart and ice. Instruct and educate on knowledge deficits Problem:PT Learning Assessment Goal:Demonstrate understanding of education Completed patient verbalize and/or demonstrate understanding of physical therapy education including orthopedic condition management, weight bearing precautions, surgical precautions, pain management, fall prevention strategies, home safety, functional activity and home exercise program. Education methods include: verbal cues and written instructions. Risk of Sepsis Description: Patient is at risk for sepsis. Monitor closely for s/s of sepsis. Problem:Sepsis Goal:Patient/caregive r will be able to identify and report symptoms of sepsis Completed SPO2 Description: Notify Dr. Burch if pulse ox is <92% at rest. Problem:Physician Specific Parameters Goal:Patient to maintain parameters within physician-specified ranges throughout certification period Completed Instruct on individual fall risk factors and strategies to prevent falls and injuries caused by falls. Problem:Risk for Falls Goal:Manage Risk for falls Completed PT: Patient instructed on Eliminating Environmental Hazards: Keep pathways clear, Keep pets out of pathways, Remove unsafe rugs, Move furniture from pathways, Keep rooms and walkways well lit, Install hand rails/grab bars and Wear supportive shoes or non-skid socks Managing Impaired Functional Mobility: Use assistive device(s): crutches and front wheeled walker Managing Pain Instruct on pain and instruct on strategies to control pain Problem:Pain Goal:Manage Pain Completed patient instructed on techniques to control pain including Pharmacological measures and Non-Pharmacological measures; rest, positioning/elevation and use of thermal modalities, apply ice to affected area . Instruct on final discharge plan and deliver discharge instructions Problem:Discharge Goal:Manage discharge planning Completed Delivered Discharge plan: Discharge plan discussed with patient for plan for transition to: outpatient therapy documented [facility] encounter [facility] for referral (narrative)* Diagnostic Procedure Only (Routine) - New Request Specialty Diagnoses / Procedures Referred By Daya t Referred To Contact XR IMAGING Diagnoses Closed complex fracture of left tibia with routine healing, subsequent encounter Procedures XR TIBIA FIBULA 2V AP/LAT LEFT RADIOLOGIC EXAMINATION TIBIA & FIBULA 2 VIEWS Carisa Burch MD [address] [place] [address] [place] [address] Referral ID Status Reason Start Date Expiration Date Visits Requested Visits Authorized [id number] New Request Auto-Generat ed Referral 03/30/2024 04/29/2025 1 1 [facility] for referral (narrative)* Diagnostic Procedure Only (Routine) - New Request Specialty Diagnoses / Procedures Referred By Contac t Referred To Contact XR IMAGING Diagnoses Closed complex fracture of left tibia with routine healing, subsequent encounter Procedures XR TIBIA FIBULA 2V AP/LAT LEFT RADIOLOGIC EXAMINATION TIBIA & FIBULA 2 VIEWS Carisa Burch MD [address] [place] [address] [place] [address] Referral ID Status Reason Start Date Expiration Date Visits Requested Visits Authorized [id number] New Request Auto-Generat ed Referral 06/21/2024 07/21/2025 1 1 [facility] for referral (narrative)No reason for referral information availableLansing Medical Services Work Phone: Chief Complaint and Reason for Visit Chief Complaint cp Chief Complaint cp TOBACCO USE TOBACCO USE Localized enlarged lymph nodes ABN LIVER ULTRASOUND Chief Complaint CYST LEFT CHEST INFECTED SEBACEOUS CYST H/O TOBACCO DEPENDENCY SKIN INFECTION Reason for Visit Infected sebaceous c yst of skin Infected sebaceous cyst of skin Abscess Chief Complaint H/O TOBACCO DEPENDEN CY SKIN INFECTION 10 m fu Reason for Visit Abscess COPD (chronic obstructive pulmonary disease) Nicotine dependence, cigarettes, in remission Chief Complaint Admit Date COUGH, SORE THROAT October 10, 2024 6:18a m Advance Directives Advance Directive Response Recorded Date/ Time Living Will No January 17 2:32am Power of Outpatient Physical Therapist Assistant No January 17 022 2:32am Advance Directive Response Recorded Date/ Time Living Will No January 17 1:32am Power of Outpatient Physical Therapist Assistant No January 17 022 1:32am Date Activated Date Inactivated Comments 03/20/2024 4:51 PM Date Activated Date Inactivated Comments 03/20/2024 4:51 PM Summary Purpose Family History No Family History Records FoundNo Family History Records FoundNo Family History Records FoundNo Family History Records Found Reason for Referral Specialty Diagnoses / Procedures Referred By Daya t Referred To Contact [facility] Diagnoses Status post surgery Procedures CONSULT TO PHYSICAL THERAPY PHYSICAL THERAPY EVALUATION HIGH COMPLEX 45 MINS Carisa Burch MD [address] [facility] [address] [place] [address] [facility] [place] [address] Referral ID Status Reason Start Date Expiration Date Visits Requested Visits Authorized [id number] Pending Review Auto-Generat ed Referral 04/02/2024 04/02/2025 1 1 Additional Source Comments Goals (unrecognized section and content) Goals may be documented in a n alternate section No data available for this sectionGoals may be documented in an alternate sectionGoals may be documented in an alternate sectionGoals may be documented in an alternate sectionGoals may be documented in an alternate sectionGoals may be documented in an alternate sectionGoals may be documented in an alternate sectionGoals may be documented in an alternate sectionGoals may be documented in an alternate section Care Team (unrecognized sect ion and content) Care Team Personnel Name: APARNA URBINA MD Member Role: Primary Care Physician Address: Address: [address] [place] [address] [address] [place] [address]- Name: GOLDIE JESSICA MD Position: ED Physician Member Role: ED Physician Address: Address: [address] [place] [id number] Name: Yumiko Pope Coder Position: HIM: Coders Member Role: HIM: Coders Name: Sarah Thomas RN Position: ED RN Member Role: ED RN (unrecognized sect ion and content) No Status Records FoundNo Status Records FoundNo Status Records FoundNo Status Records Found INFORMATION SOURCE (unrecogn ized section and content) DATE CREATED AUTHOR 02/04/2022 [facility] ([place]) DATE CREATED AUTHOR AUTHOR'S ORGANIZ ATION 06/23/2024 [facility] DATE CREATED AUTHOR AUTHOR'S ORGANIZ ATION 08/22/2024 [facility] DATE CREATED AUTHOR AUTHOR'S ORGANIZ ATION 10/11/2024 [facility] Care Teams (unrecognized sec tion and content) Team Status: Active Member Role Status Dates Dr. Aparna Urbina MD Family Provider Active Yamilka Ayala VENTILATOR SPECIALIST, VENTILATOR SPECIALIST-C Primary Care Provider Active Team Status: Inactive Member Role Status Dates Yamilka Ayala VENTILATOR SPECIALIST, VENTILATOR SPECIALIST-C Primary Care Provider, Referr ing Provider Active Alfonso FATIMA, PA Attending Provider Active Team Status: Inactive Member Role Status Dates Yamilka Ayala VENTILATOR SPECIALIST, VENTILATOR SPECIALIST-C Primary Care Provider, Referr ing Provider Active Dr. Santiago Ziegler MD Attending Provider Active Team Status: Inactive Member Role Status Dates Yamilka Ayala VENTILATOR SPECIALIST, VENTILATOR SPECIALIST-C Primary Care Provider, Referr ing Provider Active Aparna Mcwilliams VENTILATOR SPECIALIST, VENTILATOR SPECIALIST-C Attending Provider Active Team Status: Inactive Member Role Status Dates Yamilka Ayala VENTILATOR SPECIALIST, VENTILATOR SPECIALIST-C Primary Care Provider Active Dr. Nemesio Alas DO Attending Provider, Referring Pro vider Active Team Status: Active Member Role Status Dates Yamilka Ayala VENTILATOR SPECIALIST, VENTILATOR SPECIALIST-C Primary Care Provider Active Aparna Mcwilliams VENTILATOR SPECIALIST, VENTILATOR SPECIALIST-C Attending Provider, Referring Pro vider Active Team Status: Inactive Member Role Status Dates Yamilka Ayala VENTILATOR SPECIALIST, VENTILATOR SPECIALIST-C Primary Care Provider Active Aparna Mcwilliams VENTILATOR SPECIALIST, VENTILATOR SPECIALIST-C Attending Provider, Referring Pro vider Active Team Status: Active Member Role Status Dates Dr. Aparna Urbina MD Family Provider Active ROSA WAKEFIELD NP-C Primary Care Provider Active Team Status: Inactive Member Role Status Dates Yamilka Ayala VENTILATOR SPECIALIST, VENTILATOR SPECIALIST-C Primary Care Provider, Referr ing Provider Active Amairani Garg VENTILATOR SPECIALIST, VENTILATOR SPECIALIST-C Attending Provider Active Team Status: Inactive Member Role Status Dates ROSA WAKEFIELD NP-Cheryl Primary Care Prov ider, Attending Provider, Referring Provider Active Web Weaver Relationship Specialty Start Date End Date Rosa Wakefield CNP [address] [place] [address] PCP - General Nurse Practitioner 03/13/24 Carisa Burch MD [address] [address] Home Care Provider Orthopedics 03/19/24 Betzaida Russo APRN.STOCK CONTROL CLERK [address] [place] [address] Referring Internal Medicine 03/19/24 Betty Barksdale, PT [address] [place] [address] [facility] 03/19/24 Web Weaver Relationship Specialty Start Date End Date Rosa Wakefield CNP [address] [place] [address] PCP - General Nurse Practitioner 03/13/24 Carisa Burch MD [address] [place] [address] Home Care Provider Orthopedics 03/19/24 Betzaida Russo APRN.STOCK CONTROL CLERK [address] [place] [address] Referring Internal Medicine 03/19/24 Betty Barksdale, PT [address] [place] [address] [facility] Post Acute [facility] 03/19/24 Web Weaver Relationship Specialty Start Date End Date Rosa Wakefield CNP [address] [place] [address] PCP - General Nurse Practitioner 03/13/24 Carisa Burch MD [address] [place] [address] Home Care Provider Orthopedics 03/19/24 Betzaida Russo APRN.STOCK CONTROL CLERK [address] [place] [address] Referring Internal Medicine 03/19/24 Betty Barksdale, PT [address] [place] [address] Lean [facility] Post Acute Care 03/19/24 Web Weaver Relationship Specialty Start Date End Date Rosa Wakefield CNP [address] [place] [address] PCP - General Nurse Practitioner 03/13/24 Carisa Burch MD [address] [place] [address] Home Care Provider Orthopedics 03/19/24 Betzaida Russo, GLOBAL SALES MANAGER.STOCK CONTROL CLERK [address] [place] [address] Referring Internal Medicine 03/19/24 Betty Barksdale, PT [address] [place] [address] [facility] Post Acute [facility] 03/19/24 Web Weaver Relationship Specialty Start Date End Date Rosa Wakefield CNP [address] [place] [address] PCP - General Nurse Practitioner 03/13/24 Carisa Burch MD [address] [address] Home Care Provider Orthopedics 03/19/24 Betzaida Russo, GLOBAL SALES MANAGER.STOCK CONTROL CLERK [address] [place] [address] Referring Internal Medicine 03/19/24 Betty Barksdale, PT [address] [place] [address] [facility] Post Acute [facility] 03/19/24 Web Weaver Relationship Specialty Start Date End Date Rosa Wakefield CNP [address] [place] [address] PCP - General Nurse Practitioner 03/13/24 Carisa Burch MD [address] [place] [address] Home Care Provider Orthopedics 03/19/24 Betzaida Russo, GLOBAL SALES MANAGER.STOCK CONTROL CLERK [address] [place] [address] Referring Internal Medicine 03/19/24 Betty Barksdale, PT [address] [place] [address] [facility] Post Acute [facility] 03/19/24 Web Weaver Relationship Specialty Start Date End Date Rosa Wakefield CNP [address] [place] [address] PCP - General Nurse Practitioner 03/13/24 Carisa Burch MD [address] [place] [address], [place] [address] Home Care Provider Orthopedics 03/19/24 Betzaida Russo, GLOBAL SALES MANAGER.STOCK CONTROL CLERK [address] [place] [address] Referring Internal Medicine 03/19/24 Betty Barksdale, PT [address] [place] [address] Lean [facility] Post Acute Care 03/19/24 Web Weaver Relationship Specialty Start Date End Date Rosa Wakefield CNP [address] [place] [address] PCP - General Nurse Practitioner 03/13/24 Carisa Burch MD [address] [address] Home Care Provider Orthopedics 03/19/24 Betzaida Russo APRN.STOCK CONTROL CLERK [address] [place] [address] Referring Internal Medicine 03/19/24 Betty Barksdale, PT [address] [place] [address] Le[facility] Post Acute [facility] 03/19/24 Web Weaver Relationship Specialty Start Date End Date Rosa Wakefield CNP [address] [place] [address] PCP - General Nurse Practitioner 03/13/24 Carisa Burch MD [address] [address] Home Care Provider Orthopedics 03/19/24 Betzaida Russo APRN.STOCK CONTROL CLERK [address] [place] [address] Referring Internal Medicine 03/19/24 Web Weaver Relationship Specialty Start Date End Date Rosa Wakefield CNP [address] [place] [address] PCP - General Nurse Practitioner 03/13/24 Carisa Burch MD [address] [address] Home Care Provider Orthopedics 03/19/24 Betzaida Russo APRN.STOCK CONTROL CLERK [address] [place] [address] Referring Internal Medicine 03/19/24 Web Weaver Relationship Specialty Start Date End Date Rosa Wakefield CNP [address] [place] [address] PCP - General Nurse Practitioner 03/13/24 Carisa Burch MD [address] [place] [address] Home Care Provider Orthopedics 03/19/24 Betzaida Russo APRN.STOCK CONTROL CLERK [address] [place] [address] Referring Internal Medicine 03/19/24 Web Weaver Relationship Specialty Start Date End Date Rosa Wakefield CNP [address] [place] [address] PCP - General Nurse Practitioner 03/13/24 Carisa Burch MD [address] [place] [address] Home Care Provider Orthopedics 03/19/24 Betzaida Russo APRN.STOCK CONTROL CLERK [address] [place] [address] Referring Internal Medicine 03/19/24 Web Weaver Relationship Specialty Start Date End Date Rosa Wakefield CNP [address] [place] [address] PCP - General Nurse Practitioner 03/13/24 Carisa Burch MD [address] [place] [address] Home Care Provider Orthopedics 03/19/24 Betzaida Russo APRN.STOCK CONTROL CLERK [address] [facility], [place] [id number] Referring Internal Medicine 03/19/24 Web Weaver Relationship Specialty Start Date End Date Rosa Wakefield CNP [address] [place] [address] PCP - General Nurse Practitioner 03/13/24 Carisa Burch MD [address] [place] [address] Home Care Provider Orthopedics 03/19/24 Betzaida Russo APRN.STOCK CONTROL CLERK [address] [place] [address] Referring Internal Medicine 03/19/24 Web Weaver Relationship Specialty Start Date End Date Roas Wakefield CNP [address] [place] [address] PCP - General Nurse Practitioner 03/13/24 Carisa Burch MD [address] [place] [address] Home Care Provider Orthopedics 03/19/24 Betzaida Russo, GLOBAL SALES MANAGER.STOCK CONTROL CLERK [address] [place] [address] Referring Internal Medicine 03/19/24 Web Weaver Relationship Specialty Start Date End Date Rosa Wakefield CNP [address] [place] [address] PCP - General Nurse Practitioner 03/13/24 Carisa Burch MD [address] [place] [address] Home Care Provider Orthopedics 03/19/24 Betzaida Russo APRN.STOCK CONTROL CLERK [address] [place] [address] Referring Internal Medicine 03/19/24 Web Weaver Relationship Specialty Start Date End Date Rosa Wakefield CNP [address] [place] [address] PCP - General Nurse Practitioner 03/13/24 Carisa Burch MD [address] [place] [address] Home Care Provider Orthopedics 03/19/24 Betzaida Russo APRN.STOCK CONTROL CLERK [address] [place] [address] Referring Internal Medicine 03/19/24 Web Weaver Relationship Specialty Start Date End Date Rosa Wakefield CNP [address] [place] [address] PCP - General Nurse Practitioner 03/13/24 Carisa Burch MD [address] [place] [address] Home Care Provider Orthopedics 03/19/24 Betzaida Rsuso APRN.STOCK CONTROL CLERK [address] [place] [address] Referring Internal Medicine 03/19/24 Web Weaver Relationship Specialty Start Date End Date Rosa Wakefield CNP [address] [place] [address] PCP - General Nurse Practitioner 03/13/24 Carisa Burch MD [address] [place] [address] Home Care Provider Orthopedics 03/19/24 Betzaida Russo, DEBOARH.STOCK CONTROL CLERK [address] [place] [address] Referring Internal Medicine 03/19/24 Web Weaver Relationship Specialty Start Date End Date Rosa Wakefield CNP [address] [place] [address] PCP - General Nurse Practitioner 03/13/24 Carisa Burch MD [address] [address] Home Care Provider Orthopedics 03/19/24 Betzaida Russo, DEBORAH.STOCK CONTROL CLERK [address] [place] [address] Referring Internal Medicine 03/19/24 Web Weaver Relationship Specialty Start Date End Date Rosa Wakefield CNP [address] [place] [address] PCP - General Nurse Practitioner 03/13/24 Carisa Burch MD [address] [address] Home Care Provider Orthopedics 03/19/24 Betzaida Russo, DEBORAH.STOCK CONTROL CLERK [address] [place] [address] Referring Internal Medicine 03/19/24 Web Weaver Relationship Specialty Start Date End Date Rosa Wakefield CNP [address] [place] [address] PCP - General Nurse Practitioner 03/13/24 Carisa Burch MD [address] [place] [address] Home Care Provider Orthopedics 03/19/24 Betzaida Russo APRN.CNP [address] [place], [place] [id number] Referring Internal Medicine 03/19/24 Team Status: Inactive Member Role Status Dates ANNE DICK Primary Care Provider Active Start: October 10, 2024 End: October 10, 2024 ANNE DICK Referring Provider Active Start: October 10, 2024 End: October 10, 2024 AKAU Reyes Attending Provider Active Sta rt: October 10, 2024 End: October 10, 2024 Source Comments (unrecognize d section and content) In the event this informatio n is protected by the Federal Confidentiality of Alcohol and Drug Abuse Patient Records regulations: The Federal rules restrict any use of the information to criminally investigate or prosecute any alcohol or drug abuse patient.[facility] the event this information is protected by the Federal Confidentiality of Alcohol and Drug Abuse Patient Records regulations: The Federal rules restrict any use of the information to criminally investigate or prosecute any alcohol or drug abuse patient.[facility]imaIn the event this information is protected by the Federal Confidentiality of Alcohol and Drug Abuse Patient Records regulations: The Federal rules restrict any use of the information to criminally investigate or prosecute any alcohol or drug abuse patient.[facility]imaIn the event this information is protected by the Federal Confidentiality of Alcohol and Drug Abuse Patient Records regulations: The Federal rules restrict any use of the information to criminally investigate or prosecute any alcohol or drug abuse patient.[facility]imaIn the event this information is protected by the Federal Confidentiality of Alcohol and Drug Abuse Patient Records regulations: The Federal rules restrict any use of the information to criminally investigate or prosecute any alcohol or drug abuse patient.[facility]imaIn the event this information is protected by the Federal Confidentiality of Alcohol and Drug Abuse Patient Records regulations: The Federal rules restrict any use of the information to criminally investigate or prosecute any alcohol or drug abuse patient.[facility]imaIn the event this information is protected by the Federal Confidentiality of Alcohol and Drug Abuse Patient Records regulations: The Federal rules restrict any use of the information to criminally investigate or prosecute any alcohol or drug abuse patient.[facility]imaIn the event this information is protected by the Federal Confidentiality of Alcohol and Drug Abuse Patient Records regulations: The Federal rules restrict any use of the information to criminally investigate or prosecute any alcohol or drug abuse patient.[facility]imaIn the event this information is protected by the Federal Confidentiality of Alcohol and Drug Abuse Patient Records regulations: The Federal rules restrict any use of the information to criminally investigate or prosecute any alcohol or drug abuse patient.[facility]imaIn the event this information is protected by the Federal Confidentiality of Alcohol and Drug Abuse Patient Records regulations: The Federal rules restrict any use of the information to criminally investigate or prosecute any alcohol or drug abuse patient.[facility]imaIn the event this information is protected by the Federal Confidentiality of Alcohol and Drug Abuse Patient Records regulations: The Federal rules restrict any use of the information to criminally investigate or prosecute any alcohol or drug abuse patient.[facility]imaIn the event this information is protected by the Federal Confidentiality of Alcohol and Drug Abuse Patient Records regulations: The Federal rules restrict any use of the information to criminally investigate or prosecute any alcohol or drug abuse patient.[facility]imaIn the event this information is protected by the Federal Confidentiality of Alcohol and Drug Abuse Patient Records regulations: The Federal rules restrict any use of the information to criminally investigate or prosecute any alcohol or drug abuse patient.[facility]imaIn the event this information is protected by the Federal Confidentiality of Alcohol and Drug Abuse Patient Records regulations: The Federal rules restrict any use of the information to criminally investigate or prosecute any alcohol or drug abuse patient.[facility]imaIn the event this information is protected by the Federal Confidentiality of Alcohol and Drug Abuse Patient Records regulations: The Federal rules restrict any use of the information to criminally investigate or prosecute any alcohol or drug abuse patient.[facility]imaIn the event this information is protected by the Federal Confidentiality of Alcohol and Drug Abuse Patient Records regulations: The Federal rules restrict any use of the information to criminally investigate or prosecute any alcohol or drug abuse patient.[facility]imaIn the event this information is protected by the Federal Confidentiality of Alcohol and Drug Abuse Patient Records regulations: The Federal rules restrict any use of the information to criminally investigate or prosecute any alcohol or drug abuse patient.[facility]imaIn the event this information is protected by the Federal Confidentiality of Alcohol and Drug Abuse Patient Records regulations: The Federal rules restrict any use of the information to criminally investigate or prosecute any alcohol or drug abuse patient.[facility]imaIn the event this information is protected by the Federal Confidentiality of Alcohol and Drug Abuse Patient Records regulations: The Federal rules restrict any use of the information to criminally investigate or prosecute any alcohol or drug abuse patient.[facility]imaIn the event this information is protected by the Federal Confidentiality of Alcohol and Drug Abuse Patient Records regulations: The Federal rules restrict any use of the information to criminally investigate or prosecute any alcohol or drug abuse patient.[facility]imaIn the event this information is protected by the Federal Confidentiality of Alcohol and Drug Abuse Patient Records regulations: The Federal rules restrict any use of the information to criminally investigate or prosecute any alcohol or drug abuse patient.[facility]imaIn the event this information is protected by the Federal Confidentiality of Alcohol and Drug Abuse Patient Records regulations: The Federal rules restrict any use of the information to criminally investigate or prosecute any alcohol or drug abuse patient.[facility]imaIn the event this information is protected by the Federal Confidentiality of Alcohol and Drug Abuse Patient Records regulations: The Federal rules restrict any use of the information to criminally investigate or prosecute any alcohol or drug abuse patient.[facility]imaIn the event this information is protected by the Federal Confidentiality of Alcohol and Drug Abuse Patient Records regulations: The Federal rules restrict any use of the information to criminally investigate or prosecute any alcohol or drug abuse patient.[facility]imaIn the event this information is protected by the Federal Confidentiality of Alcohol and Drug Abuse Patient Records regulations: The Federal rules restrict any use of the information to criminally investigate or prosecute any alcohol or drug abuse patient.[facility]imaIn the event this information is protected by the Federal Confidentiality of Alcohol and Drug Abuse Patient Records regulations: The Federal rules restrict any use of the information to criminally investigate or prosecute any alcohol or drug abuse patient.[facility]imaIn the event this information is protected by the Federal Confidentiality of Alcohol and Drug Abuse Patient Records regulations: The Federal rules restrict any use of the information to criminally investigate or prosecute any alcohol or drug abuse patient.[facility]imaIn the event this information is protected by the Federal Confidentiality of Alcohol and Drug Abuse Patient Records regulations: The Federal rules restrict any use of the information to criminally investigate or prosecute any alcohol or drug abuse patient.[facility]imaIn the event this information is protected by the Federal Confidentiality of Alcohol and Drug Abuse Patient Records regulations: The Federal rules restrict any use of the information to criminally investigate or prosecute any alcohol or drug abuse patient.[facility]imaIn the event this information is protected by the Federal Confidentiality of Alcohol and Drug Abuse Patient Records regulations: The Federal rules restrict any use of the information to criminally investigate or prosecute any alcohol or drug abuse patient.[facility]imaIn the event this information is protected by the Federal Confidentiality of Alcohol and Drug Abuse Patient Records regulations: The Federal rules restrict any use of the information to criminally investigate or prosecute any alcohol or drug abuse patient.[facility]imaIn the event this information is protected by the Federal Confidentiality of Alcohol and Drug Abuse Patient Records regulations: The Federal rules restrict any use of the information to criminally investigate or prosecute any alcohol or drug abuse patient.[facility]imaIn the event this information is protected by the Federal Confidentiality of Alcohol and Drug Abuse Patient Records regulations: The Federal rules restrict any use of the information to criminally investigate or prosecute any alcohol or drug abuse patient.[facility]imaIn the event this information is protected by the Federal Confidentiality of Alcohol and Drug Abuse Patient Records regulations: The Federal rules restrict any use of the information to criminally investigate or prosecute any alcohol or drug abuse patient.[facility]imaIn the event this information is protected by the Federal Confidentiality of Alcohol and Drug Abuse Patient Records regulations: The Federal rules restrict any use of the information to criminally investigate or prosecute any alcohol or drug abuse patient.[facility]imaIn the event this information is protected by the Federal Confidentiality of Alcohol and Drug Abuse Patient Records regulations: The Federal rules restrict any use of the information to criminally investigate or prosecute any alcohol or drug abuse patient.[facility]imaIn the event this information is protected by the Federal Confidentiality of Alcohol and Drug Abuse Patient Records regulations: The Federal rules restrict any use of the information to criminally investigate or prosecute any alcohol or drug abuse patient.[facility]imaIn the event this information is protected by the Federal Confidentiality of Alcohol and Drug Abuse Patient Records regulations: The Federal rules restrict any use of the information to criminally investigate or prosecute any alcohol or drug abuse patient.[facility]imaIn the event this information is protected by the Federal Confidentiality of Alcohol and Drug Abuse Patient Records regulations: The Federal rules restrict any use of the information to criminally investigate or prosecute any alcohol or drug abuse patient.[facility]imaIn the event this information is protected by the Federal Confidentiality of Alcohol and Drug Abuse Patient Records regulations: The Federal rules restrict any use of the information to criminally investigate or prosecute any alcohol or drug abuse patient.[facility]imaIn the event this information is protected by the Federal Confidentiality of Alcohol and Drug Abuse Patient Records regulations: The Federal rules restrict any use of the information to criminally investigate or prosecute any alcohol or drug abuse patient.[facility]imaIn the event this information is protected by the Federal Confidentiality of Alcohol and Drug Abuse Patient Records regulations: The Federal rules restrict any use of the information to criminally investigate or prosecute any alcohol or drug abuse patient.[facility]imaIn the event this information is protected by the Federal Confidentiality of Alcohol and Drug Abuse Patient Records regulations: The Federal rules restrict any use of the information to criminally investigate or prosecute any alcohol or drug abuse patient.[facility]imaIn the event this information is protected by the Federal Confidentiality of Alcohol and Drug Abuse Patient Records regulations: The Federal rules restrict any use of the information to criminally investigate or prosecute any alcohol or drug abuse patient.[facility]imaIn the event this information is protected by the Federal Confidentiality of Alcohol and Drug Abuse Patient Records regulations: The Federal rules restrict any use of the information to criminally investigate or prosecute any alcohol or drug abuse patient.[facility]imaIn the event this information is protected by the Federal Confidentiality of Alcohol and Drug Abuse Patient Records regulations: The Federal rules restrict any use of the information to criminally investigate or prosecute any alcohol or drug abuse patient.[facility]imaIn the event this information is protected by the Federal Confidentiality of Alcohol and Drug Abuse Patient Records regulations: The Federal rules restrict any use of the information to criminally investigate or prosecute any alcohol or drug abuse patient.[facility]imaIn the event this information is protected by the Federal Confidentiality of Alcohol and Drug Abuse Patient Records regulations: The Federal rules restrict any use of the information to criminally investigate or prosecute any alcohol or drug abuse patient.[facility]imaIn the event this information is protected by the Federal Confidentiality of Alcohol and Drug Abuse Patient Records regulations: The Federal rules restrict any use of the information to criminally investigate or prosecute any alcohol or drug abuse patient.[facility] Reason for Visit (unrecogniz ed section and content) Reason Comments PT Progress Note Specialty Diagnoses / Procedures Referred By Contac t Referred To Contact PHYSICAL THERAPY Diagnoses Status post surgery [Z98.890] Procedures Status post surgery [Z98.890] Rosa Wakefield, STOCK CONTROL CLERK [address] [place] [address] Phone: tel:[phone] fax: [facility] [address] [place] [address] Phone: tel: fax: Referral ID Status Reason Start Date Expiration Date V isits Requested Visits Authorized [id number] Authorized 05/28/2024 05/27/2025 99 99 Reason Comments Physical Therapy Specialty Diagnoses / Procedures Referred By Contac t Referred To Contact Physical Therapy / PHYSICAL THERAPY Diagnoses LT TIB FX C DC 04/10 Procedures NEW RS PT TOTAL JOINT Rosa Wakefield STOCK CONTROL CLERK [address] [place] [address] Skyler Foreman, PT [address] [place] [address] Referral ID Status Reason Start Date Expiration Date V isits Requested Visits Authorized [id number] Authorized 05/28/2023 05/27/2024 99 99 Reason Comments Home Care Confirmation call Reason Comments Home Care P.T. Start of Care Reason Comments Orders Reason Comments Established Patient Follow Up Post Op Pain Fracture Swelling Reason Comments Home Care OP PT orders Specialty Diagnoses / Procedures Referred By Daya t Referred To Contact HOME CARE SERVICES IND Home Care [address] [place] [address] Referral ID Status Reason Start Date Expiration Date Visits Re quested Visits Authorized [id number] 1 1 Reason Comments PT Eval Reason Comments Insurance Authorization Continued Physic al Therapy Specialty Diagnoses / Procedures Referred By Contac t Referred To Contact PHYSICAL THERAPY Diagnoses Status post surgery [Z98.890] Procedures Status post surgery [Z98.890] Rosa Wakefield, STOCK CONTROL CLERK [address] [facility] [place] [address] Pt [facility] [address] [place] [address] Reason Comments Established Patient Follow Up Pain Swelling FOR RECORDS PERTAINING TO PATIENTS WHO ARE OR HAVE BEEN ENROLLED IN A CHEMICAL DEPENDENCY/SUBSTANCEABUSE PROGRAM, SOME INFORMATION MAY BE OMITTED. This clinical summary was aggregated from multiple sources. Caution should be exercised in using it in the provision of clinical care. This summary normalizes information from multiple sources, and as a consequence, information in this document may materially change the coding, format and clinical context of patient data. In addition, data may be omitted in some cases. CLINICAL DECISIONS SHOULD BE BASED ON THE PRIMARY CLINICAL RECORDS. [employer] provides no warranty or guarantee of the accuracy or completeness of information in this document.
[2024-11-14 07:13] LABS: Hematocrit 46.6 % (40-54); Hemoglobin 15.6 g/dL (13.0-16.5); Mean Corp Hgb Conc 33.5 g/dL (32-36); Mean Corpuscular Hgb 30.2 pg (27.0-32.0); Mean Corpuscular Volume 90.1 fL (80-94); Mean Platelet Vol. 9.5 fl (6.2-12.0); Platelet Count 325 K/mm3 (150-450); RBC Distribution Width CV 13.4 % (11.6-14.6); RBC Distribution Width SD 45.1 fl (35.1-43.9); Red Blood Count 5.17 M/mm3 (4.6-6.2); White Blood Count 9.3 K/mm3 (4.4-11.0)
[2024-11-14 07:36] LABS: ALB/GLOB Ratio 1.6 RATIO (0.9-2.4); AST(SGOT) 30 U/L (<=37); Alanine Aminotransfer ALT/SGPT 42 U/L (<=46); Albumin, Serum 4.5 g/dL (3.5-5.0); Alkaline Phosphatase 103 U/L (40-129); Anion Gap 10 (5-15); BUN 16 mg/dL (4-19); Calcium,Total 9.6 mg/dL (7.6-11.0); Carbon Dioxide 26.4 mmol/L (21.0-32.0); Chloride 100 mmol/L (98-108); Cholesterol 191 mg/dL (<=200); Creatinine, Serum 0.94 mg/dL (0.70-1.20); EST Glomerular Filtration Rate 94 (>60); Globulin 2.8 g/dL (2.2-4.2); Glucose 84 mg/dL (70-99); High Density Lipoprotein 58 mg/dL; Low Density Lipoprotein Calc. 117 mg/dL; Potassium 4.5 mmol/L (3.3-5.1); Protein, Total 7.3 g/dL (5.9-8.4); Sodium Level 137 mmol/L (133-145); Total Bilirubin 0.52 mg/dL (0.00-1.30); Triglycerides 77 mg/dL; Very Low Density Lipoprotein 15 mg/dL (5-40); cholesterol:hdl ratio screen 3.28
== END | disposition home or self-care (01) ==
LOC: LAB 06:30
PROVIDERS: PCP Nurse Practitioner Family; Referring Provider Nurse Practitioner Family; Visit Provider Nurse Practitioner Family
DX: Z00.00 Encounter for general adult medical examination without abnormal findings (principal); D72.829 Elevated white blood cell count, unspecified
CPT/HCPCS: 36415; 80053; 80061; 85027

== ENCOUNTER → 2025-03-20 | Outpatient (CLI) | payer BC, SELFPAY | END | disposition home or self-care (01) | LOC: CT 06:25 | PROVIDERS: PCP Nurse Practitioner Family; Referring Provider Nurse Practitioner Family; Visit Provider Nurse Practitioner Family | DX: Z12.2 Encounter for screening for malignant neoplasm of respiratory organs (principal); F17.211 Nicotine dependence, cigarettes, in remission | CPT/HCPCS: 71271 ==

== ENCOUNTER → 2025-03-27 | Outpatient (CLI) | payer BC, SELFPAY ==
[2025-03-27 10:34] LABS: Hematocrit 44.3 % (40-54); Hemoglobin 15.1 g/dL (13.0-16.5); Immature Granulocytes Count 0.030 X10^3/uL (0.0-0.0); Mean Corp Hgb Conc 34.1 g/dL (32-36); Mean Corpuscular Volume 90.2 fL (80-94); Mean Platelet Vol. 9.8 fl (6.2-12.0); NRBC Flagged by Analyzer 0 % (0-5); Platelet Count 317 K/mm3 (150-450); RBC Distribution Width CV 13.2 % (11.6-14.6); RBC Distribution Width SD 43.8 fl (35.1-43.9); Red Blood Count 4.91 M/mm3 (4.6-6.2); White Blood Count 9.7 K/mm3 (4.4-11.0)
[2025-03-27 11:28] LABS: Albumin, Serum 4.5 g/dL (3.5-5.0); CRP < 3.00 mg/L (0.0-3.0); Calcium 9.8 mg/dL (7.6-11.0); Vitamin D,25 Hydroxy 43.3 ng/mL (30-100)
== END | disposition home or self-care (01) ==
LOC: MTLAB 08:40
PROVIDERS: PCP Nurse Practitioner Family; Referring Provider Orthopaedic Surgery Sports Medicine; Visit Provider Orthopaedic Surgery Sports Medicine
DX: S82.2 Fracture of shaft of tibia (principal)
CPT/HCPCS: 82040; 82306; 82310; 83036; 84100; 84443; 85025; 86140